=== PATIENT | female | born 1945 | race Caucasian/White ===

== ENCOUNTER 2016-11-18 12:15 | Inpatient (IN) | payer MEDICARE, OTHER ==
[~2016-11-18] VITALS: Ht 152.4 cm; Wt 71.8 kg
[~2016-11-18 12:15] MED LIST: ACET325T9 PO; AMLO10TA2 PO; AMLO10TA4 PO; AMLO5TAB4 PO; ATOR10TA PO; ATOR10TA60 PO; Aspirin PO; BUSP10TA PO; Buspirone Hcl PO; CLON1TAB3 PO; CLOP75TA PO; CLOP75TA27 PO; COLE1TAB PO; COLE1TAB2 PO; DOXY100C2 PO; FENO43CA PO; FENT1PAT15 TD; HYDR-2672 PO; HYDR-971 PO; Hydrocodone/Acetaminophen PO; INSU100I13 SQ; INSU100I17 SQ; INSU100I18 SQ; INSU100I27 SQ; INSU100V31 SQ; INSU100V8 SQ; LAMO150T3 PO; LAMO200T3 PO; LEVE250T30 PO; LEVE500T56 PO; LEVE500V7 PO; LEVE750T41 PO; LINE600T PO; LORA1TAB PO; METF10002 PO; METF500T PO; METF500T4 PO; METH10TA6 PO; METO10SO PO; METO10TA PO; METO10TA81 PO; METO50TA2 PO; Metoprolol Tartrate PO; NITR0.4T SL; OMEP20TA PO; ONDA4TAB10 PO; ONDA4TAB12 PO; OXYC-323 PO; OXYC1TAB9 PO; PANT40TA5 PO; PIOG45TA19 PO; ROPI0.5T PO; SUCR1TAB29 PO; TRAM-29 PO; VALS160T3 PO; VALS320T2 PO; VALS320T9 PO; ZOLP10TA PO; ZOLP5TAB PO
--- NOTE | 2016-11-18 12:47 | EKG ---
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
[2016-11-18 12:59] LABS: BILIRUBIN,URINE NEGATIVE (NEG); GLUCOSE,URINE NEGATIVE (NEG); NITRITE,URINE NEGATIVE (NEG); PROTEIN,URINE NEGATIVE (NEG-TRACE); UROBILINOGEN,URINE 0.2 mg/dL (0.2 mg/dL)
[2016-11-18 13:15] LABS: BACTERIA,URINE 0 /HPF (0-FEW); SQUAMOUS EPITHELIAL CELL,UR OCC /LPF; WBC,URINE 0 /HPF (0-4)
[2016-11-18 13:17] LABS: RBC,URINE 0 /HPF (0-2)
[2016-11-18 13:30] LABS: BASO # 0.1 x10^3/uL (0.0-0.2); BASO % 1 % (0-3); EOS % 1 % (0-3); HEMOGLOBIN 12.7 g/dL (12.0-15.5); LYMPH # 2.6 x10^3/uL (1.0-4.8); LYMPH % 35 % (24-48); MEAN CORPUSCULAR HEMOGLOBIN 32 pg (25-35); MEAN CORPUSCULAR HGB CONC 34 g/dL (31-37); MEAN CORPUSCULAR VOLUME 94 fL (79-100); MONO % 8 % (0-9); NEUT % 55 % (31-73); PLATELET COUNT 395 x10^3/uL (140-400); RED BLOOD COUNT 4.04 x10^6/uL (3.50-5.40); RED CELL DISTRIBUTION WIDTH 14.1 % (11.5-14.5); WHITE BLOOD COUNT 7.4 x10^3/uL (4.0-11.0)
[2016-11-18 13:38] LABS: CALCIUM 9.9 mg/dL (8.5-10.1); GFR 54.7; POTASSIUM 3.9 mmol/L (3.5-5.1)
[2016-11-18 13:44] LABS: ALBUMIN 4.3 g/dL (3.4-5.0); ALBUMIN/GLOBULIN RATIO 1.1 (1.0-1.7); TOTAL BILIRUBIN 0.2 mg/dL (0.2-1.0); TOTAL PROTEIN 8.2 g/dL (6.4-8.2)
--- NOTE | 2016-11-18 13:47 | RAD ---
Portable AP upright view CXR: Clinical indications: Dizziness. Shortness of air. Comparison: June 10, 2016 Findings: No acute lung infiltrate or pleural effusion or pulmonary edema or lung mass or pneumothorax is seen. The heart size, pulmonary vasculature, mediastinum and both clayton are stable given rotation. A sternotomy is evident. A vertebroplasty of the lumbar spine is evident. Impression: No acute radiographic abnormality is seen.
[2016-11-18] MEDS ORDERED: IV NORMAL SALINE 1000ML BAG 1,000 ML IV SCH (14:08)
[2016-11-18] MEDS ORDERED: ACETAMINOPHEN 325 MG TABLET. PO PRN ×2 (14:15→15:30)
[2016-11-18] MEDS ORDERED: ONDANSETRON PF 4 MG/2 ML VIAL. IV PRN (14:15)
--- NOTE | 2016-11-18 14:33 | PHYS DOC ---
Past Medical History Past Medical History: Bipolar, Diabetes-Type II, Heart Disease, Hypertension, IBS, Seizure, Other Additional Past Medical Histor: Gastroparesis Past Surgical History: Appendectomy, Cholecystectomy, Hysterectomy, Other Additional Past Surgical Histo: Cardiac stents x 5, CABG, Fused R)ankle surgery Alcohol Use: None Drug Use: None Adult General Chief Complaint Chief Complaint: DIZZY/LIGHT HEADED HPI HPI 71-year-old female presents to the emergency department today stating that she just feels terrible. Her initial complaint was that she is dizzy and really unable to ambulate secondary to her dizziness. She states that she's recently been seen and evaluated for this and sent home. She also states that she's had some chest discomfort and shortness of breath. She denies any fever chills or sweats. She denies any headache or lateralizing neurologic weakness. She has not had any recent falls at home but she does state that she doesn't feel safe. [] Review of Systems Review of Systems Constitutional: Denies fever or chills [] Eyes: Denies change in visual acuity, redness, or eye pain [] HENT: Denies nasal congestion or sore throat [] Respiratory: Denies cough or shortness of breath [] Cardiovascular: No additional information not addressed in HPI [] GI: Denies abdominal pain, nausea, vomiting, bloody stools or diarrhea [] : Denies dysuria or hematuria [] Musculoskeletal: Denies back pain or joint pain [] Integument: Denies rash or skin lesions [] Neurologic: Dizzy [] Endocrine: Denies polyuria or polydipsia [] Current Medications Current Medications Current Medications Medications (Trade) Dose Ordered Sig/Melanie Start Time Stop Time Status Last Admin Dose Admin Acetaminophen (Tylenol) 650 mg PRN Q4HRS PRN 11/18/16 14:15 11/19/16 14:14 UNV Fentanyl Citrate 50 mcg 50 mcg PRN Q2HR PRN 11/18/16 14:15 11/19/16 14:14 UNV Ondansetron HCl (Zofran) 4 mg PRN Q8HRS PRN 11/18/16 14:15 11/19/16 14:14 UNV Sodium Chloride (Iv Sodium Chloride 0.9% 1000ml Bag) 1,000 ml @ 125 mls/hr Q8H 11/18/16 14:08 11/19/16 14:07 UNV Allergies Allergies Allergies Coded Allergies Type Severity Reaction Last Updated Verified Iodinated Contrast Media - Oral and Allergy Severe Anaphylaxis 05/27/16 Yes Penicillins Allergy Intermediate 05/27/16 Yes atenolol Allergy Intermediate 05/27/16 Yes erythromycin base Allergy Intermediate 05/27/16 Yes iodine Allergy Intermediate 05/27/16 Yes levofloxacin Allergy Intermediate 05/27/16 Yes pregabalin Allergy Intermediate 05/27/16 Yes Physical Exam Physical Exam Constitutional: Well developed, well nourished, no acute distress, non-toxic appearance. [] HENT: Normocephalic, atraumatic, bilateral external ears normal, oropharynx moist, no oral exudates, nose normal. [] Eyes: PERRLA, EOMI, conjunctiva normal, no discharge. [] Neck: Normal range of motion, no tenderness, supple, no stridor. [] Cardiovascular:Heart rate regular rhythm, no murmur [] Lungs & Thorax: Bilateral breath sounds clear to auscultation [] Abdomen: Bowel sounds normal, soft, no tenderness, no masses, no pulsatile masses. [] Skin: Warm, dry, no erythema, no rash. [] Back: No tenderness, no CVA tenderness. [] Extremities: No tenderness, no cyanosis, no clubbing, ROM intact, no edema. [] Neurologic: Alert and oriented X 3, normal motor function, normal sensory function, no focal deficits noted. [] Psychologic: Affect normal, judgement normal, mood normal. [] Current Patient Data Vital Signs Vital Signs Date Time Temp Pulse Resp B/P Pulse Ox O2 Delivery O2 Flow Rate FiO2 11/18/16 13:29 78 15 160/77 99 Room Air 11/18/16 12:21 98.3 98.3 Lab Values Laboratory Tests Test 11/18/16 12:37 11/18/16 13:15 Urine Collection Type Unknown Urine Color Yellow Urine Clarity Clear Urine pH 7.0 Urine Specific Maiden <=1.005 Urine Protein Negativemg/dL (NEG-TRACE) Urine Glucose (UA) Negativemg/dL (NEG) Urine Ketones (Stick) Negativemg/dL (NEG) Urine Blood Negative (NEG) Urine Nitrite Negative (NEG) Urine Bilirubin Negative (NEG) Urine Urobilinogen Dipstick 0.2mg/dL (0.2 mg/dL) Urine Leukocyte Esterase Trace (NEG) Urine RBC 0/HPF (0-2) Urine WBC 0/HPF (0-4) Urine Squamous Epithelial Cells Occ/LPF Urine Transitional Epithelial Cells Mod/LPF Urine Bacteria 0/HPF (0-FEW) White Blood Count 7.4x10^3/uL (4.0-11.0) Red Blood Count 4.04x10^6/uL (3.50-5.40) Hemoglobin 12.7g/dL (12.0-15.5) Hematocrit 38.0% (36.0-47.0) Mean Corpuscular Volume 94fL (79-100) Mean Corpuscular Hemoglobin 32pg (25-35) Mean Corpuscular Hemoglobin Concent 34g/dL (31-37) Red Cell Distribution Width 14.1% (11.5-14.5) Platelet Count 395x10^3/uL (140-400) Neutrophils (%) (Auto) 55% (31-73) Lymphocytes (%) (Auto) 35% (24-48) Monocytes (%) (Auto) 8% (0-9) Eosinophils (%) (Auto) 1% (0-3) Basophils (%) (Auto) 1% (0-3) Neutrophils # (Auto) 4.0x10^3uL (1.8-7.7) Lymphocytes # (Auto) 2.6x10^3/uL (1.0-4.8) Monocytes # (Auto) 0.6x10^3/uL (0.0-1.1) Eosinophils # (Auto) 0.1x10^3/uL (0.0-0.7) Basophils # (Auto) 0.1x10^3/uL (0.0-0.2) Sodium Level 142mmol/L (136-145) Potassium Level 3.9mmol/L (3.5-5.1) Chloride Level 103mmol/L (98-107) Carbon Dioxide Level 27mmol/L (21-32) Anion Gap 12 (6-14) Blood Urea Nitrogen 23mg/dL (7-20) H Creatinine 1.0mg/dL (0.6-1.0) Estimated GFR (Cockcroft-Gault) 54.7 BUN/Creatinine Ratio 23 (6-20) H Glucose Level 134mg/dL (70-99) H Calcium Level 9.9mg/dL (8.5-10.1) Total Bilirubin 0.2mg/dL (0.2-1.0) Aspartate Amino Transferase (AST) 13U/L (15-37) L Alanine Aminotransferase (ALT) 20U/L (14-59) Alkaline Phosphatase 98U/L (46-116) Troponin I Quantitative < 0.017ng/mL (0.000-0.055) SE-Nrh-D-Type Natriuretic Peptide 217pg/mL (0-124) H Total Protein 8.2g/dL (6.4-8.2) Albumin 4.3g/dL (3.4-5.0) Albumin/Globulin Ratio 1.1 (1.0-1.7) Laboratory Tests 11/18/16 13:15 Laboratory Tests 11/18/16 13:15 EKG EKG EKG: Normal sinus rhythm rate of [address]-T changes [] Radiology/Procedures Radiology/Procedures [] Impressions: Chest x-ray: No acute cardiopulmonary issues Course & Med Decision Making Course & Med Decision Making Pertinent Labs and Imaging studies reviewed. (See chart for details) [ED course: Evaluation reveals a 71-year-old frail female who complains of dizziness and has concerns that she's not able to take care of herself at home. She was recently seen in the hospital for the same. I discussed the case with Dr. Prime West who states she does need further evaluation likely to include a stress test.] Dragon Disclaimer Dragon Disclaimer This electronic medical record was generated, in whole or in part, using a voice recognition dictation system. Departure Departure Impression: Primary Impression: Dizziness Disposition: 09 ADMITTED INPATIENT Admitting Physician: Natanael Masters Condition: STABLE Referrals: NATANAEL MASTERS MD (PCP) COURTNEY SKY DO Nov 18, 2016 14:33
[2016-11-18] MEDS ORDERED: MAG HYDROX/ALUMINUM HYD/SIMETH 30 ML ORAL.SUSP PO PRN (15:30)
[2016-11-18] MEDS ORDERED: NITROGLYCERIN SUBLINGUAL 0.4 MG BOTTLE OF 25. SL PRN (15:30)
--- NOTE | 2016-11-18 15:43 | PDOC ---
Provider Note Provider Note history and physical dictated #[id number] DENICE IZAGUIRRE MD Nov 18, 2016 15:43
[2016-11-18] MEDS: OXYCODONE IR 5 MG TABLET. PO PRN ×2 (16:04→21:23)
--- NOTE | 2016-11-18 16:14 | HP ---
ADMIT DATE: 11/18/2016 HISTORY OF PRESENT ILLNESS: The patient is a 71-year-old white female with history of coronary artery disease, diabetes mellitus type 2 with diabetic gastroparesis and microalbuminuria who has hypertension and hyperlipidemia and was admitted to [facility] through Emergency Room with a 4-day history of dizziness. She notes dizziness when she stands up and tries to walk, making ambulation quite difficult. She also has had some nausea and some shortness of breath and chest discomfort and she was seen in the Emergency Room. Her EKG did not show any acute change. Chest x-ray was unremarkable. Admitting labs were okay. She was to have an outpatient stress test, but it was canceled because they could not get IV access. Her jawbone puller is Dr. Quigley. She is therefore admitted for further evaluation of her aforementioned symptoms. ALLERGIES AND INTOLERANCES: INCLUDE HYDROCODONE, ATENOLOL, ERYTHROMYCIN, ORAL IODINE AND IV IODINE, LEVAQUIN CAUSED A RASH, PENICILLIN CAUSED A RASH, LYRICA CAUSED A RASH AND TRAMADOL CAUSED FACIAL HIVES. MEDICATIONS: Include Actos 45 mg every day, amlodipine 10 mg every day, aspirin 81 mg every day, atorvastatin 10 mg every day, Colestid 1 g b.i.d., fentanyl 25 mcg patch every 72 hours, hydrochlorothiazide 25 mg every day, Imdur 30 mg every day, Keppra 750 mg b.i.d., Lantus 4 units at bedtime, lorazepam 1 mg t.i.d. p.r.n. for anxiety, metformin 500 mg b.i.d., metoprolol tartrate 50 mg b.i.d., multiple vitamin once a day, nitroglycerin 0.4 mg sublingual p.r.n. chest pain, NovoLog insulin 4 units before meals t.i.d., oxycodone 5 mg b.i.d. p.r.n., Plavix 75 mg every day, Protonix 40 mg b.i.d., spironolactone 25 mg every day, valsartan 320 mg every day, vitamin B12 1000 mcg p.o. daily, Zofran 4 mg before meals t.i.d., Ambien 5 mg at bedtime p.r.n., and metoclopramide 10 mg b.i.d. PAST MEDICAL HISTORY: Significant for diabetes mellitus type 2 with gastroparesis and microalbuminuria. She has coronary artery disease, hypertension, hyperlipidemia, epilepsy, reflux esophagitis, macular degeneration, lumbar spondylosis, kidney stones in the past, diverticulosis, and bipolar disorder. PAST SURGICAL HISTORY: She had a left total knee arthroplasty, right ankle arthroplasty, open reduction internal fixation of her right ankle fracture, three-vessel coronary bypass graft surgery in 2002, cholecystectomy, and a Schatzki stricture dilated. SOCIAL HISTORY: She does not drink alcohol nor does she smoke cigarettes. She is , retired. FAMILY HISTORY: Noncontributory. REVIEW OF SYSTEMS: GENERAL: No fever, chills or sweats in the last 3 days. CARDIOVASCULAR: She has had some chest pain. PULMONARY: No cough ____. She does have some shortness of breath. GASTROINTESTINAL: Some nausea. ENDOCRINE: She has diabetes mellitus. The rest of systems are reviewed and negative except as stated in history of present illness. PHYSICAL EXAMINATION: VITAL SIGNS: Temperature is 98.3 degrees, apical pulse 78, respiratory rate is 18, blood pressure 160/77, and oxygen saturation 99% on room air. HEENT: Eyes: Gaze is conjugate. Extraocular muscles are intact. There is no nystagmus. Mouth: Tongue is midline. NECK: There is no cervical lymphadenopathy or carotid bruits. HEART: Reveals an S1, S2. There is no S3 or murmur. LUNGS: Clear. ABDOMEN: Soft with no hepatosplenomegaly or masses. EXTREMITIES: Lower extremities without edema. SKIN: No rashes. NEUROLOGIC: She is coherent. She has no focal weakness the arms or legs. [id number] testing is normal bilaterally. LABORATORY DATA: The white count was 7.4, hemoglobin 12.7 with a platelet count of 395,000, polys 55 and lymphocytes 35. Sodium 142, potassium 3.9, chloride 103, total CO2 27, BUN 23, creatinine 1.0, blood sugar 134. Liver function tests were normal. Troponin level was negative x 1. ProBNP was 217, albumin was 4.3 and urinalysis showed no white cells. Chest x-ray showed no acute abnormality. EKG showed normal sinus rhythm with no acute abnormality. ASSESSMENT: 1. Dizziness. Certainly need to rule out orthostatic hypotension. 2. Chest pain. She has had this on occasion and stress test could not be done as an outpatient. She had IV access problems. 3. Coronary artery disease. 4. 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 5. Hypertension. 6. Hyperlipidemia. 7. Reflux esophagitis. PLAN: To consult Dr. Quigley. We will check orthostatic blood pressures. We will have a PICC line placed and so that she can have a myocardial perfusion imaging stress test/NICHELLE scan. We check hemoglobin A1c and lipid profile tomorrow. We will order some physical therapy for it also. Her home medications will be ordered and will check her blood sugars before meals t.i.d. and bedtime, on an ADA diet. DENICE IZAGUIRRE MD DR: MIKAL/mandy JOB#: [id number] / [id number]
[2016-11-18] MEDS: METFORMIN 500 MG TABLET. PO SCH (17:00)
[2016-11-18 17:42] VITALS: BP 188/78
[2016-11-18] MEDS: PANTOPRAZOLE 40 MG TABLET.DR. PO SCH (17:53)
[2016-11-18] MEDS: ONDANSETRON ODT 4 MG TAB.RAPDIS. PO SCH (17:53)
[2016-11-18] MEDS: FENTANYL 25MCG/HR PATCH. TD SCH (17:54)
[2016-11-18 19:00] VITALS: BP 137/71
[2016-11-18] MEDS: LORAZEPAM 1 MG TABLET. PO PRN (19:50)
[2016-11-18] MEDS: METOCLOPRAMIDE 10 MG TABLET. PO SCH (19:51)
[2016-11-18 20:00] VITALS: BP 142/68
[2016-11-18 20:01] VITALS: BP 153/63
[2016-11-18 20:02] VITALS: BP 169/83
[2016-11-18] MEDS ORDERED: LIDOCAINE 1% 1 ML SYRINGE. ONE (20:20)
[2016-11-18] MEDS ORDERED: ATORVASTATIN CALCIUM 10 MG TABLET. PO SCH (21:00)
[2016-11-18] MEDS: LEVETIRACETAM 250 MG TABLET. PO SCH (21:21)
[2016-11-18] MEDS: ZOLPIDEM 5 MG TABLET. PO PRN (21:21)
[2016-11-18] MEDS: METOPROLOL TART IMMED RELEASE 50 MG TABLET. PO SCH (21:22)
[2016-11-18] MEDS: COLESTIPOL HCL 1 GM TABLET PO SCH (22:00)
[2016-11-18 23:00] VITALS: BP 138/66
[2016-11-19] MEDS: INSULIN DETEMIR 300 UNITS/3 ML INSULN.PEN. SQ SCH ×2 (00:43→21:42)
[2016-11-19] MEDS: FENTANYL PF 100 MCG/2 ML VIAL. IV PRN ×4 (01:05→11:00)
[2016-11-19 03:00] VITALS: BP 138/66
[2016-11-19 06:54] LABS: CHOLESTEROL/HDL RATIO 5.9; MAGNESIUM 1.8 mg/dL (1.8-2.4)
[2016-11-19 07:00] VITALS: BP 142/72
--- NOTE | 2016-11-19 07:10 | RAD ---
Portable chest, 11/19/2016: History: Check PICC placement Comparison is made to a study from 11/18/2016. A right PICC has been inserted extending into the inferior aspect of the superior vena cava. There has been a previous median sternotomy. Spinal stimulator lead extends into the thoracic spinal canal. The heart size and pulmonary vascularity are normal. There is calcific plaquing of the aorta. No pulmonary infiltrates are seen. There is no evidence of pleural fluid. IMPRESSION: 1. Interval insertion of a right PICC in satisfactory position. 2. No acute cardiopulmonary abnormality is detected.
[2016-11-19] MEDS: ONDANSETRON ODT 4 MG TAB.RAPDIS. PO SCH ×3 (07:14→16:30)
[2016-11-19] MEDS: INSULIN ASPART 300 UNITS/3 ML INSULN.PEN SQ SCH ×3 (07:30→17:26)
[2016-11-19] MEDS: METOCLOPRAMIDE 10 MG TABLET. PO SCH ×2 (07:44→16:30)
[2016-11-19] MEDS: PANTOPRAZOLE 40 MG TABLET.DR. PO SCH ×2 (07:44→16:30)
[2016-11-19] MEDS ORDERED: ASPIRIN 325 MG TABLET PO SCH (08:00)
[2016-11-19] MEDS: METFORMIN 500 MG TABLET. PO SCH ×2 (08:00→16:59)
[2016-11-19] MEDS ORDERED: REGADENOSON 0.4 MG/5 ML DISP.SYRIN. IV ONE (08:15)
--- NOTE | 2016-11-19 08:32 | PDOC ---
PROGRESS NOTES Subjective Subjective has lightheadedness. did not have orthostatic hypotension. picc placed for MPI today. lab reviewed. blood sugars okay. trigs 400 and ldl 148.. will increase atorvastatin. Objective Objective Vital Signs Date Time Temp Pulse Resp B/P Pulse Ox O2 Delivery O2 Flow Rate FiO2 11/19/16 07:45 20 95 Room Air 11/19/16 07:00 98.1 71 142/72 98.1 Intake and Output 11/19/16 06:59 Intake Total 0 ml Output Total 100 ml Balance -100 ml Intake Oral 0 ml Output Urine Total 100 ml # Voids 3 Physical Exam Abdomen: Soft Heart: Regular rate, Normal S1, Normal S2 Extremities: No edema General: Alert HEENT: Atraumatic Lungs: Clear to auscultation Neuro: Normal speech Psych/Mental Status: Mental status NL Skin: No rashes Assessment Assessment Problems Medical Problems:1. Dizziness. no orthostatic hypotension 2. Chest pain 3. Coronary artery disease. 4. 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 5. Hypertension. 6. Hyperlipidemia. 7. Reflux esophagitis. (1) Dizziness Status: Acute Plan Plan of Care MPI lexiscan stress test today increase atorvastatin continue telemetry Comment Review of Relevant I have reviewed the following items maldonado (where applicable) has been applied. Labs Laboratory Tests Test 11/18/16 12:37 11/18/16 13:15 11/18/16 17:43 11/18/16 19:50 Urine Collection Type Unknown Urine Color Yellow Urine Clarity Clear Urine pH 7.0 Urine Specific [place] <=1.005 Urine Protein Negativemg/dL (NEG-TRACE) Urine Glucose (UA) Negativemg/dL (NEG) Urine Ketones (Stick) Negativemg/dL (NEG) Urine Blood Negative (NEG) Urine Nitrite Negative (NEG) Urine Bilirubin Negative (NEG) Urine Urobilinogen Dipstick 0.2mg/dL (0.2 mg/dL) Urine Leukocyte Esterase Trace (NEG) Urine RBC 0/HPF (0-2) Urine WBC 0/HPF (0-4) Urine Squamous Epithelial Cells Occ/LPF Urine Transitional Epithelial Cells Mod/LPF Urine Bacteria 0/HPF (0-FEW) White Blood Count 7.4x10^3/uL (4.0-11.0) Red Blood Count 4.04x10^6/uL (3.50-5.40) Hemoglobin 12.7g/dL (12.0-15.5) Hematocrit 38.0% (36.0-47.0) Mean Corpuscular Volume 94fL (79-100) Mean Corpuscular Hemoglobin 32pg (25-35) Mean Corpuscular Hemoglobin Concent 34g/dL (31-37) Red Cell Distribution Width 14.1% (11.5-14.5) Platelet Count 395x10^3/uL (140-400) Neutrophils (%) (Auto) 55% (31-73) Lymphocytes (%) (Auto) 35% (24-48) Monocytes (%) (Auto) 8% (0-9) Eosinophils (%) (Auto) 1% (0-3) Basophils (%) (Auto) 1% (0-3) Neutrophils # (Auto) 4.0x10^3uL (1.8-7.7) Lymphocytes # (Auto) 2.6x10^3/uL (1.0-4.8) Monocytes # (Auto) 0.6x10^3/uL (0.0-1.1) Eosinophils # (Auto) 0.1x10^3/uL (0.0-0.7) Basophils # (Auto) 0.1x10^3/uL (0.0-0.2) Sodium Level 142mmol/L (136-145) Potassium Level 3.9mmol/L (3.5-5.1) Chloride Level 103mmol/L (98-107) Carbon Dioxide Level 27mmol/L (21-32) Anion Gap 12 (6-14) Blood Urea Nitrogen 23mg/dL (7-20) Creatinine 1.0mg/dL (0.6-1.0) Estimated GFR (Cockcroft-Gault) 54.7 BUN/Creatinine Ratio 23 (6-20) Glucose Level 134mg/dL (70-99) Calcium Level 9.9mg/dL (8.5-10.1) Total Bilirubin 0.2mg/dL (0.2-1.0) Aspartate Amino Transf (AST/SGOT) 13U/L (15-37) Alanine Aminotransferase (ALT/SGPT) 20U/L (14-59) Alkaline Phosphatase 98U/L (46-116) Troponin I Quantitative < 0.017ng/mL (0.000-0.055) < 0.017ng/mL (0.000-0.055) FN-Auo-F-Type Natriuretic Peptide 217pg/mL (0-124) Total Protein 8.2g/dL (6.4-8.2) Albumin 4.3g/dL (3.4-5.0) Albumin/Globulin Ratio 1.1 (1.0-1.7) Glucose (Fingerstick) 155mg/dL (70-99) Test 11/18/16 20:51 11/19/16 06:20 11/19/16 07:36 Glucose (Fingerstick) 200mg/dL (70-99) 116mg/dL (70-99) Magnesium Level 1.8mg/dL (1.8-2.4) Troponin I Quantitative 0.030ng/mL (0.000-0.055) Triglycerides Level 400mg/dL (0-150) Cholesterol Level 275mg/dL (0-200) LDL Cholesterol, Calculated 148mg/dL (0-100) VLDL Cholesterol, Calculated 80mg/dL (0-40) HDL Cholesterol 47mg/dL (40-60) Cholesterol/HDL Ratio 5.9 Laboratory Tests Test 11/18/16 12:37 11/18/16 13:15 11/18/16 17:43 11/18/16 19:50 Urine Collection Type Unknown Urine Color Yellow Urine Clarity Clear Urine pH 7.0 Urine Specific [place] <=1.005 Urine Protein Negativemg/dL (NEG-TRACE) Urine Glucose (UA) Negativemg/dL (NEG) Urine Ketones (Stick) Negativemg/dL (NEG) Urine Blood Negative (NEG) Urine Nitrite Negative (NEG) Urine Bilirubin Negative (NEG) Urine Urobilinogen Dipstick 0.2mg/dL (0.2 mg/dL) Urine Leukocyte Esterase Trace (NEG) Urine RBC 0/HPF (0-2) Urine WBC 0/HPF (0-4) Urine Squamous Epithelial Cells Occ/LPF Urine Transitional Epithelial Cells Mod/LPF Urine Bacteria 0/HPF (0-FEW) White Blood Count 7.4x10^3/uL (4.0-11.0) Red Blood Count 4.04x10^6/uL (3.50-5.40) Hemoglobin 12.7g/dL (12.0-15.5) Hematocrit 38.0% (36.0-47.0) Mean Corpuscular Volume 94fL (79-100) Mean Corpuscular Hemoglobin 32pg (25-35) Mean Corpuscular Hemoglobin Concent 34g/dL (31-37) Red Cell Distribution Width 14.1% (11.5-14.5) Platelet Count 395x10^3/uL (140-400) Neutrophils (%) (Auto) 55% (31-73) Lymphocytes (%) (Auto) 35% (24-48) Monocytes (%) (Auto) 8% (0-9) Eosinophils (%) (Auto) 1% (0-3) Basophils (%) (Auto) 1% (0-3) Neutrophils # (Auto) 4.0x10^3uL (1.8-7.7) Lymphocytes # (Auto) 2.6x10^3/uL (1.0-4.8) Monocytes # (Auto) 0.6x10^3/uL (0.0-1.1) Eosinophils # (Auto) 0.1x10^3/uL (0.0-0.7) Basophils # (Auto) 0.1x10^3/uL (0.0-0.2) Sodium Level 142mmol/L (136-145) Potassium Level 3.9mmol/L (3.5-5.1) Chloride Level 103mmol/L (98-107) Carbon Dioxide Level 27mmol/L (21-32) Anion Gap 12 (6-14) Blood Urea Nitrogen 23mg/dL (7-20) Creatinine 1.0mg/dL (0.6-1.0) Estimated GFR (Cockcroft-Gault) 54.7 BUN/Creatinine Ratio 23 (6-20) Glucose Level 134mg/dL (70-99) Calcium Level 9.9mg/dL (8.5-10.1) Total Bilirubin 0.2mg/dL (0.2-1.0) Aspartate Amino Transf (AST/SGOT) 13U/L (15-37) Alanine Aminotransferase (ALT/SGPT) 20U/L (14-59) Alkaline Phosphatase 98U/L (46-116) Troponin I Quantitative < 0.017ng/mL (0.000-0.055) < 0.017ng/mL (0.000-0.055) PF-Avy-W-Type Natriuretic Peptide 217pg/mL (0-124) Total Protein 8.2g/dL (6.4-8.2) Albumin 4.3g/dL (3.4-5.0) Albumin/Globulin Ratio 1.1 (1.0-1.7) Glucose (Fingerstick) 155mg/dL (70-99) Test 11/18/16 20:51 11/19/16 06:20 11/19/16 07:36 Glucose (Fingerstick) 200mg/dL (70-99) 116mg/dL (70-99) Magnesium Level 1.8mg/dL (1.8-2.4) Troponin I Quantitative 0.030ng/mL (0.000-0.055) Triglycerides Level 400mg/dL (0-150) Cholesterol Level 275mg/dL (0-200) LDL Cholesterol, Calculated 148mg/dL (0-100) VLDL Cholesterol, Calculated 80mg/dL (0-40) HDL Cholesterol 47mg/dL (40-60) Cholesterol/HDL Ratio 5.9 Medications Current Medications Ondansetron HCl (Zofran) 4 mg PRN Q8HRS PRN IV NAUSEA/VOMITING Last administered on 11/19/16 01:05; Start 11/18/16 at 14:15; Stop 11/19/16 at 14:14 Fentanyl Citrate 50 mcg 50 mcg PRN Q2HR PRN IV PAIN Last administered on 07:45; Start 11/18/16 at 14:15; Stop 11/19/16 at 14:14 Sodium Chloride (Iv Sodium Chloride 0.9% 1000ml Bag) 1,000 ml @ 125 mls/hr Q8H IV ; Start 11/18/16 at 14:08; Stop 11/18/16 at 19:29; Status DC Acetaminophen (Tylenol) 650 mg PRN Q4HRS PRN PO FEVER; Start 11/18/16 at 14:15; Stop 11/18/16 at 15:42; Status DC Pioglitazone HCl (Actos) 45 mg DAILY PO ; Start 11/19/16 at 09:00 Acetaminophen (Tylenol) 650 mg PRN Q4HRS PRN PO MILD PAIN / TEMP; Start at 15:30 Al Hydroxide/Mg Hydroxide (Mylanta Plus Xs) 30 ml PRN Q2HR PRN PO HEARTBURN / GAS; Start 11/18/16 at 15:30 Aspirin (Dev Aspirin) 81 mg DAILYWBKFT PO ; Start 11/19/16 at 08:00 Atorvastatin Calcium (Lipitor) 10 mg QHS PO Last administered on 11/18/16 21:20 ; Start 11/18/16 at 21:00 Colestipol HCl (Colestid) 1 gm BID@ PO ; Start 11/18/16 at 22:00 Fentanyl (Duragesic 25mcg/ Hr Patch) 1 patch Q3DAYS TD Last administered on 11/18 17:54; Start 11/18/16 at 18:00 Hydrochlorothiazide (Hydrodiuril) 25 mg DAILY PO ; Start 11/19/16 at 09:00 Isosorbide Mononitrate (Imdur) 30 mg DAILY PO ; Start 11/19/16 at 09:00 Levetiracetam (Keppra) 750 mg BID PO Last administered on 11/18/16 21:21; Start 11/18/16 at 21:00 Insulin Detemir (Levemir) 4 units QHS SQ Last administered on 11/19/16 00:43; Start 11/18/16 at 21:00 Insulin Aspart (Novolog) 4 units TIDAC SQ ; Start 11/19/16 at 07:30 Lorazepam (Ativan) 1 mg PRN TID PRN PO ANXIETY / AGITATION Last administered on 11/18/16 19:50; Start 11/18/16 at 15:30 Metformin HCl (Glucophage) 500 mg BIDWMEALS PO ; Start 11/18/16 at 17:00 Metoprolol Tartrate (Lopressor) 50 mg BID PO Last administered on 11/18/16 21: 22; Start 11/18/16 at 21:00 Multivitamins (Thera M Plus) 1 tab DAILY PO ; Start 11/19/16 at 09:00 Nitroglycerin (Nitrostat) 0.4 mg PRN Q5MIN PRN SL CHEST PAIN; Start 11/18/16 at 15:30 Oxycodone HCl (Roxicodone) 5 mg PRN BID PRN PO MODERATE PAIN Last administered on 11/18/16 21:23; Start 11/18/16 at 15:30 Clopidogrel Bisulfate (Plavix) 75 mg DAILYWBKFT PO ; Start 11/19/16 at 08:00 Pantoprazole Sodium (Protonix) 40 mg BIDAC PO Last administered on 11/19/16 07 :44; Start 11/18/16 at 18:00 Spironolactone (Aldactone) 25 mg DAILY PO ; Start 11/19/16 at 09:00 Losartan Potassium (Cozaar) 100 mg DAILY PO ; Start 11/19/16 at 09:00 Cyanocobalamin (Vitamin B-12) 1,000 mcg DAILY PO ; Start 11/19/16 at 09:00 Ondansetron HCl (Zofran Odt) 4 mg TIDAC PO Last administered on 11/19/16 07:14 ; Start 11/18/16 at 16:30 Zolpidem Tartrate (Ambien) 5 mg PRN QHS PRN PO INSOMNIA Last administered on 21:21; Start 11/18/16 at 15:30 Metoclopramide HCl (Reglan) 10 mg BIDBFRMEAL PO Last administered on 11/19/16 07:44; Start 11/18/16 at 16:30 Lidocaine HCl 1 ml STK-MED ONCE .ROUTE ; Start 11/18/16 at 20:20; Stop 11/18/16 at 20:21; Status DC Regadenoson (Lexiscan) 0.4 mg 1X ONCE IV ; Start 11/19/16 at 08:15; Stop at 08:16; Status DC Active Scripts Active Percocet 5-325 Mg Tablet (Oxycodone/Acetaminophen) 1 Each Tablet 1 Tab PO PRN Q6HRS PRN Pantoprazole Sodium 40 Mg Tablet.dr 40 Mg PO BIDAC Metoclopramide Hcl 10 Mg Tablet 10 Mg PO QIDACHS Levemir Flextouch (Insulin Detemir) 100 Unit/1 Ml Insuln.pen 4 Units SQ QHS Oxycodone-Acetaminophen 10-325 (Oxycodone Hcl/Acetaminophen) 1 Each Tablet 1 Tab PO PRN QID PRN Ondansetron Odt (Ondansetron) 4 Mg Tab.rapdis 4 Mg PO TIDAC Novolog Flexpen (Insulin Aspart) 100 Unit/1 Ml Insuln.pen 4 Units SQ TIDAC FENTANYL 25mcg/hr (Fentanyl) 1 Each Patch.td72 1 Patch TD Q3DAYS Amlodipine Besylate 10 Mg Tablet 10 Mg PO DAILY Reported Valsartan 320 Mg Tablet 320 Mg PO DAILY Colestipol Hcl 1 Gm Tablet 1 Gm PO BID Metoprolol Tartrate 50 Mg Tablet 50 Mg PO BID Buspirone Hcl 10 Mg Tablet 10 Mg PO TID Ambien (Zolpidem Tartrate) 5 Mg Tablet 5 Mg PO HS Lorazepam 1 Mg Tablet 1 Mg PO TID Clopidogrel (Clopidogrel Bisulfate) 75 Mg Tablet 75 Mg PO DAILY Atorvastatin Calcium 10 Mg Tablet 10 Mg PO HS Lamictal (Lamotrigine) 150 Mg Tablet 200 Mg PO DAILY Keppra (Levetiracetam) 750 Mg Tablet 750 Mg PO BID Metformin Hcl 1,000 Mg Tablet 1,000 Mg PO BID Actos (Pioglitazone Hcl) 45 Mg Tablet 15 Mg PO DAILY Vitals/I & O Vital Sign - Last 24 Hours 11/18/16 11/18/16 11/18/16 11/18/16 12:21 12:50 13:29 13:55 Temp 98.3 98.3 Pulse 78 78 78 78 Resp 20 15 15 25 B/P 165/76 162/73 160/77 152/70 Pulse Ox 97 98 99 97 O2 Delivery Room Air Room Air Room Air Room Air 11/18/16 11/18/16 11/18/16 11/18/16 14:25 14:55 15:55 16:04 Pulse 76 74 74 Resp 23 17 21 24 B/P 154/65 165/70 145/65 Pulse Ox 99 99 98 O2 Delivery Room Air Room Air Room Air 11/18/16 11/18/16 11/18/16 11/18/16 17:42 17:54 19:00 20:00 Temp 98.2 98.1 98.2 98.1 Pulse 82 82 73 Resp 22 20 20 B/P 188/78 137/71 142/68 Pulse Ox 99 98 98 O2 Delivery Room Air Room Air Room Air 11/18/16 11/18/16 11/18/16 11/18/16 20:01 20:02 21:22 21:23 Pulse 75 87 87 Resp 20 B/P 153/63 169/83 169/83 Pulse Ox 98 O2 Delivery Room Air 11/18/16 11/19/16 11/19/16 11/19/16 23:00 01:05 03:00 03:51 Temp 97.7 96.6 97.7 96.6 Pulse 65 66 Resp 20 20 20 B/P 138/66 138/66 Pulse Ox 95 95 99 95 O2 Delivery Room Air Room Air Room Air 11/19/16 11/19/16 07:00 07:45 Temp 98.1 98.1 Pulse 71 Resp 18 20 B/P 142/72 Pulse Ox 94 95 O2 Delivery Room Air Room Air Intake and Output 11/18/16 11/18/16 11/19/16 14:59 22:59 06:59 Intake Total 0 ml Output Total 100 ml Balance -100 ml DENICE IZAGUIRRE MD Nov 19, 2016 08:32
[2016-11-19] MEDS ORDERED: CYANOCOBALAMIN (VITAMIN B-12) 1,000 MCG TABLET. PO SCH (09:00)
[2016-11-19] MEDS: COLESTIPOL HCL 1 GM TABLET PO SCH ×2 (10:00→20:06)
[2016-11-19 11:00] VITALS: BP 176/76
[2016-11-19] MEDS: PIOGLITAZONE 15 MG TABLET. PO SCH (11:03)
[2016-11-19] MEDS: HYDROCHLOROTHIAZIDE 25 MG TABLET PO SCH (11:04)
[2016-11-19] MEDS: CLOPIDOGREL BISULFATE 75 MG TABLET PO SCH (11:04)
[2016-11-19] MEDS: MULTIVITAMIN with MINERAL TABLET. PO SCH (11:05)
[2016-11-19] MEDS: LOSARTAN POTASSIUM 50 MG TABLET. PO SCH (11:05)
[2016-11-19] MEDS: ISOSORBIDE MONONITRATE ER 30 MG TAB.ER.24H PO SCH (11:05)
[2016-11-19] MEDS: LEVETIRACETAM 250 MG TABLET. PO SCH ×2 (11:06→21:30)
[2016-11-19] MEDS: METOPROLOL TART IMMED RELEASE 50 MG TABLET. PO SCH ×2 (11:06→21:31)
[2016-11-19] MEDS: SPIRONOLACTONE 25 MG TABLET PO SCH (11:06)
[2016-11-19] MEDS: LORAZEPAM 1 MG TABLET. PO PRN ×3 (11:11→21:33)
[2016-11-19] MEDS: ASPIRIN CHEWABLE 81 MG TABLET. PO SCH (11:13)
[2016-11-19] MEDS: OXYCODONE IR 5 MG TABLET. PO PRN ×3 (11:53→21:31)
--- NOTE | 2016-11-19 13:51 | ACF ---
Admission Forms Criteria DIZZINESS Clinical Indications for Admission to Inpatient Care (Place 'X' for any and all applicable criteria): Admission is indicated for ANY ONE of the following(1)(2)(3)(4): [X]I. Inpatient admission required rather than observation care (Also use Dizziness: Observation Care as appropriate) because of ANY ONE of the following: [ ]a) Hemodynamic instability that is severe or persistent [X]b) Signs or symptoms that are severe or persistent (eg, vomit, orthostasis, inability to ambulate) [ ]c) Cardiac arrhythmias of immediate concern [ ]d) Severe (new) neurologic findings requiring inpatient care as indicated by ANY ONE of the following(6)(7): [ ]1) Cerebral bleeding, ischemia, or vasospasm(8)(9) [ ]2) Increased intracranial pressure or hydrocephalus(10)(11)(12) [ ]3) Papilledema [ ]4) Cerebral edema [ ]5) Mass effect on CT scan [ ]e) Continuous IV infusion of anticoagulation, platelet inhibitor, vasoactive, or antiarrhythmic medication [ ]f) Cerebral bleeding, hydrocephalus, or vasospasm monitoring(14) [ ]g) Increased intracranial pressure or cerebral edema monitoring [ ]h) Vomiting that is severe or persistent [ ]i) Other condition, treatment or monitoring requiring inpatient admission [ ]II. A suspected etiology that requires admission for treatment [ ]III. Acute bacterial labyrinthitis [ ]IV. Cerebellar, brainstem, or cerebral ischemia or hemorrhage (5) Extended stay beyond goal length of stay may be needed for evaluating and treating a specific cause of dizziness, including(32) [ ]a) Head injury (Also use Traumatic Brain Injury, Nonsurgical Treatment guideline) [ ]b) New-onset vertebrobasilar vascular insufficiency [ ]c) Acute Meniere disease with intractable symptoms [ ]d) Cardiac arrhythmias or conduction defects [ ]e) Acute neurologic event causing dizziness [ ]f) Myocardial ischemia [ ]g) Acute bacterial labyrinthitis. [ ]h) Severe acute vestibular neuronitis The original [employer] content created by [employer] has been revised. The portions of the content which have been revised are identified through the use of italic text or in bold, and [facility] [employer] has neither reviewed nor approved the modified material. All other unmodified content is copyright [facility]. Please see references footnoted in the original [facility] edition 2016 Admission Criteria Met?: Yes MERRITT MONTANEZ Nov 19, 2016 13:51
[2016-11-19 15:00] VITALS: BP 117/60
--- NOTE | 2016-11-19 18:16 | PDOC2 ---
NEUROLOGY CONSULT Date of Admission Date of Admission DATE: 11/19/16 TIME: 18:05 Reason for Consult Reason for Consult: IMPRESSION: Chronic dizziness x 4 months. CAD, s/p CABG DM HTN HLD GERD RECOMMENDATIONS/PLAN: Continue Plavix 75 mg daily. Continue Lipitor 40 mg HS. Carotid A US + Doppler. HCT Ortho HR and BP. No MRI due to spinal stimulator. OT/PT HISTORY OF THE PRESENT ILLNESS: 71-y-old female patent with above medical diseases has been having dizziness for about 4 months. She stated her symptoms of dizziness does did not go away and she felt dizzy all the time. Lying position seemed did not decrease her symptoms. She has unsteadiness as well. PAST MEDICAL HISTORY: Please see above. PAST SURGERY HISTORY: S/P CABG ALLERGY: HYDROCODONE ATENOLOL ERYTHROMYCIN IODINE LEVAQUIN CAUSED A RASH PENICILLIN CAUSED A RASH LYRICA CAUSED A RASH TRAMADOL CAUSED FACIAL HIVES MEDICATIONS: Refer to [facility] FAMILY HISTORY: Non contributory. SOCIAL HISTORY: Denies current smoking, drinking, and illicit drug use. REVIEW OF SYSTEMS: Constitutional: No cachexia. Head: No recent traumatic brain or head injury. Skin: No edema. Ear: No infection, tinnitus. Eyes: No vision loss or color blindness. Nose: No bleeding or purulent discharges. Hearing: Hearing decrease. Neck: No injury. Cardiac: NCAD, s/p CABG, HTN, HLD. Pulmonary: No COPD. GI: No GI ulcer, GI bleeding. Urinary/genital: UTI. Endocrinologic: Diabetes Mellitus Skeletomuscular: No muscular atrophy, deformity. Neurological: see HP. Psychiatric: Denies drug use/abuse. Otherwise, not [id number] review of systems. PHYSICAL EXAMINATION: General appearance is in no acute distress. HEENT: Normocephalic and nontraumatic. Eyes, nose, ears, and throat are unremarkable. Neck is supple. No lymphadenopathy. Bruits over the left carotid artery? No crepitus. Cardiovascular: S1, S2, regular rate and rhythm. Pulmonary: Clear to auscultation bilaterally. Abdomen: Bowel sounds are positive. Abdomen is soft, nontender, and nondistended. Extremities: No rash, lesions, or edema. No restriction of range of motion NEUROLOGICAL EXAMINATION: Alert Oriented to time, place and person. PERRL. EOMI. CN: no focal findings. Muscle tone: within normal. Muscle strength: 5- DTR: 2 Plantar reflex: Flexor response bilaterally Gait: not examined in bed. Sensory exam: no abnormal findings. No acute cerebellar signs elicited. F-T-N test accurate. Current Medications Current Medications Current Medications Ondansetron HCl (Zofran) 4 mg PRN Q8HRS PRN IV NAUSEA/VOMITING Last administered on 11/19/16 01:05; Start 11/18/16 at 14:15; Stop 11/19/16 at 14:14 ; Status DC Fentanyl Citrate 50 mcg 50 mcg PRN Q2HR PRN IV PAIN Last administered on 11:00; Start 11/18/16 at 14:15; Stop 11/19/16 at 14:14; Status DC Sodium Chloride (Iv Sodium Chloride 0.9% 1000ml Bag) 1,000 ml @ 125 mls/hr Q8H IV ; Start 11/18/16 at 14:08; Stop 11/18/16 at 19:29; Status DC Acetaminophen (Tylenol) 650 mg PRN Q4HRS PRN PO FEVER; Start 11/18/16 at 14:15; Stop 11/18/16 at 15:42; Status DC Pioglitazone HCl (Actos) 45 mg DAILY PO Last administered on 11/19/16 11:03; Start 11/19/16 at 09:00 Acetaminophen (Tylenol) 650 mg PRN Q4HRS PRN PO MILD PAIN / TEMP; Start at 15:30 Al Hydroxide/Mg Hydroxide (Mylanta Plus Xs) 30 ml PRN Q2HR PRN PO HEARTBURN / GAS; Start 11/18/16 at 15:30 Aspirin (Dev Aspirin) 81 mg DAILYWBKFT PO ; Start 11/19/16 at 08:00; Stop 05/28 at 10:54; Status DC Atorvastatin Calcium (Lipitor) 10 mg QHS PO Last administered on 11/18/16 21:20 ; Start 11/18/16 at 21:00; Stop 11/19/16 at 08:33; Status DC Colestipol HCl (Colestid) 1 gm BID@10,22 PO ; Start 11/18/16 at 22:00 Fentanyl (Duragesic 25mcg/ Hr Patch) 1 patch Q3DAYS TD Last administered on 11/18 17:54; Start 11/18/16 at 18:00 Hydrochlorothiazide (Hydrodiuril) 25 mg DAILY PO Last administered on 11:04; Start 11/19/16 at 09:00 Isosorbide Mononitrate (Imdur) 30 mg DAILY PO Last administered on 11/19/16 11 :05; Start 11/19/16 at 09:00 Levetiracetam (Keppra) 750 mg BID PO Last administered on 11/19/16 11:06; Start 11/18/16 at 21:00 Insulin Detemir (Levemir) 4 units QHS SQ Last administered on 11/19/16 00:43; Start 11/18/16 at 21:00 Insulin Aspart (Novolog) 4 units TIDAC SQ Last administered on 11/19/16 17:26 ; Start 11/19/16 at 07:30 Lorazepam (Ativan) 1 mg PRN TID PRN PO ANXIETY / AGITATION Last administered on 11/19/16 15:27; Start 11/18/16 at 15:30 Metformin HCl (Glucophage) 500 mg BIDWMEALS PO ; Start 11/18/16 at 17:00 Metoprolol Tartrate (Lopressor) 50 mg BID PO Last administered on 11/19/16 11: 06; Start 11/18/16 at 21:00 Multivitamins (Thera M Plus) 1 tab DAILY PO Last administered on 11/19/16 11: 05; Start 11/19/16 at 09:00 Nitroglycerin (Nitrostat) 0.4 mg PRN Q5MIN PRN SL CHEST PAIN; Start 11/18/16 at 15:30 Oxycodone HCl (Roxicodone) 5 mg PRN BID PRN PO MODERATE PAIN Last administered on 11/19/16 11:53; Start 11/18/16 at 15:30 Clopidogrel Bisulfate (Plavix) 75 mg DAILYWBKFT PO Last administered on 11:04; Start 11/19/16 at 08:00 Pantoprazole Sodium (Protonix) 40 mg BIDAC PO Last administered on 11/19/16 16 :30; Start 11/18/16 at 18:00 Spironolactone (Aldactone) 25 mg DAILY PO Last administered on 11/19/16 11:06 ; Start 11/19/16 at 09:00 Losartan Potassium (Cozaar) 100 mg DAILY PO Last administered on 11/19/16 11: 05; Start 11/19/16 at 09:00 Cyanocobalamin (Vitamin B-12) 1,000 mcg DAILY PO Last administered on 11:03; Start 11/19/16 at 09:00 Ondansetron HCl (Zofran Odt) 4 mg TIDAC PO Last administered on 11/19/16 16:30 ; Start 11/18/16 at 16:30 Zolpidem Tartrate (Ambien) 5 mg PRN QHS PRN PO INSOMNIA Last administered on 21:21; Start 11/18/16 at 15:30 Metoclopramide HCl (Reglan) 10 mg BIDBFRMEAL PO Last administered on 11/19/16 16:30; Start 11/18/16 at 16:30 Lidocaine HCl 1 ml STK-MED ONCE .ROUTE ; Start 11/18/16 at 20:20; Stop 11/18/16 at 20:21; Status DC Regadenoson (Lexiscan) 0.4 mg 1X ONCE IV Last administered on 11/19/16 10:44 ; Start 11/19/16 at 08:15; Stop 11/19/16 at 08:16; Status DC Atorvastatin Calcium (Lipitor) 40 mg QHS PO ; Start 11/19/16 at 21:00 Aspirin (Children'S Aspirin) 81 mg DAILYWBKFT PO Last administered on 11:13; Start 11/19/16 at 10:54 Oxycodone HCl (Roxicodone) 5 mg PRN Q4HRS PRN PO PAIN Last administered on 11/19 17:24; Start 11/19/16 at 17:15 Active Scripts Active Percocet 5-325 Mg Tablet (Oxycodone/Acetaminophen) 1 Each Tablet 1 Tab PO PRN Q6HRS PRN Pantoprazole Sodium 40 Mg Tablet.dr 40 Mg PO BIDAC Metoclopramide Hcl 10 Mg Tablet 10 Mg PO QIDACHS Levemir Flextouch (Insulin Detemir) 100 Unit/1 Ml Insuln.pen 4 Units SQ QHS Oxycodone-Acetaminophen 10-325 (Oxycodone Hcl/Acetaminophen) 1 Each Tablet 1 Tab PO PRN QID PRN Ondansetron Odt (Ondansetron) 4 Mg Tab.rapdis 4 Mg PO TIDAC Novolog Flexpen (Insulin Aspart) 100 Unit/1 Ml Insuln.pen 4 Units SQ TIDAC FENTANYL 25mcg/hr (Fentanyl) 1 Each Patch.td72 1 Patch TD Q3DAYS Amlodipine Besylate 10 Mg Tablet 10 Mg PO DAILY Reported Valsartan 320 Mg Tablet 320 Mg PO DAILY Colestipol Hcl 1 Gm Tablet 1 Gm PO BID Metoprolol Tartrate 50 Mg Tablet 50 Mg PO BID Buspirone Hcl 10 Mg Tablet 10 Mg PO TID Ambien (Zolpidem Tartrate) 5 Mg Tablet 5 Mg PO HS Lorazepam 1 Mg Tablet 1 Mg PO TID Clopidogrel (Clopidogrel Bisulfate) 75 Mg Tablet 75 Mg PO DAILY Atorvastatin Calcium 10 Mg Tablet 10 Mg PO HS Lamictal (Lamotrigine) 150 Mg Tablet 200 Mg PO DAILY Keppra (Levetiracetam) 750 Mg Tablet 750 Mg PO BID Metformin Hcl 1,000 Mg Tablet 1,000 Mg PO BID Actos (Pioglitazone Hcl) 45 Mg Tablet 15 Mg PO DAILY Allergies Allergies: Coded Allergies: Iodinated Contrast Media - Oral and (Verified Allergy, Severe, Anaphylaxis , 05/27/16) Penicillins (Verified Allergy, Intermediate, 05/27/16) atenolol (Verified Allergy, Intermediate, 05/27/16) erythromycin base (Verified Allergy, Intermediate, 05/27/16) iodine (Verified Allergy, Intermediate, 05/27/16) levofloxacin (Verified Allergy, Intermediate, 05/27/16) pregabalin (Verified Allergy, Intermediate, 05/27/16) Vitals VITALS Vital Signs Date Time Temp Pulse Resp B/P Pulse Ox O2 Delivery O2 Flow Rate FiO2 11/19/16 17:24 18 Room Air 11/19/16 15:00 98.1 65 117/60 96 98.1 Labs Labs Laboratory Tests Test 11/18/16 12:37 11/18/16 13:15 11/18/16 17:43 11/18/16 19:50 Urine Collection Type Unknown Urine Color Yellow Urine Clarity Clear Urine pH 7.0 Urine Specific Ucon <=1.005 Urine Protein Negativemg/dL (NEG-TRACE) Urine Glucose (UA) Negativemg/dL (NEG) Urine Ketones (Stick) Negativemg/dL (NEG) Urine Blood Negative (NEG) Urine Nitrite Negative (NEG) Urine Bilirubin Negative (NEG) Urine Urobilinogen Dipstick 0.2mg/dL (0.2 mg/dL) Urine Leukocyte Esterase Trace (NEG) Urine RBC 0/HPF (0-2) Urine WBC 0/HPF (0-4) Urine Squamous Epithelial Cells Occ/LPF Urine Transitional Epithelial Cells Mod/LPF Urine Bacteria 0/HPF (0-FEW) White Blood Count 7.4x10^3/uL (4.0-11.0) Red Blood Count 4.04x10^6/uL (3.50-5.40) Hemoglobin 12.7g/dL (12.0-15.5) Hematocrit 38.0% (36.0-47.0) Mean Corpuscular Volume 94fL (79-100) Mean Corpuscular Hemoglobin 32pg (25-35) Mean Corpuscular Hemoglobin Concent 34g/dL (31-37) Red Cell Distribution Width 14.1% (11.5-14.5) Platelet Count 395x10^3/uL (140-400) Neutrophils (%) (Auto) 55% (31-73) Lymphocytes (%) (Auto) 35% (24-48) Monocytes (%) (Auto) 8% (0-9) Eosinophils (%) (Auto) 1% (0-3) Basophils (%) (Auto) 1% (0-3) Neutrophils # (Auto) 4.0x10^3uL (1.8-7.7) Lymphocytes # (Auto) 2.6x10^3/uL (1.0-4.8) Monocytes # (Auto) 0.6x10^3/uL (0.0-1.1) Eosinophils # (Auto) 0.1x10^3/uL (0.0-0.7) Basophils # (Auto) 0.1x10^3/uL (0.0-0.2) Sodium Level 142mmol/L (136-145) Potassium Level 3.9mmol/L (3.5-5.1) Chloride Level 103mmol/L (98-107) Carbon Dioxide Level 27mmol/L (21-32) Anion Gap 12 (6-14) Blood Urea Nitrogen 23mg/dL (7-20) Creatinine 1.0mg/dL (0.6-1.0) Estimated GFR (Cockcroft-Gault) 54.7 BUN/Creatinine Ratio 23 (6-20) Glucose Level 134mg/dL (70-99) Calcium Level 9.9mg/dL (8.5-10.1) Total Bilirubin 0.2mg/dL (0.2-1.0) Aspartate Amino Transf (AST/SGOT) 13U/L (15-37) Alanine Aminotransferase (ALT/SGPT) 20U/L (14-59) Alkaline Phosphatase 98U/L (46-116) Troponin I Quantitative < 0.017ng/mL (0.000-0.055) < 0.017ng/mL (0.000-0.055) GY-Wtc-M-Type Natriuretic Peptide 217pg/mL (0-124) Total Protein 8.2g/dL (6.4-8.2) Albumin 4.3g/dL (3.4-5.0) Albumin/Globulin Ratio 1.1 (1.0-1.7) Glucose (Fingerstick) 155mg/dL (70-99) Test 11/18/16 20:51 11/19/16 06:20 11/19/16 07:36 11/19/16 10:59 Glucose (Fingerstick) 200mg/dL (70-99) 116mg/dL (70-99) 128mg/dL (70-99) Magnesium Level 1.8mg/dL (1.8-2.4) Troponin I Quantitative 0.030ng/mL (0.000-0.055) Triglycerides Level 400mg/dL (0-150) Cholesterol Level 275mg/dL (0-200) LDL Cholesterol, Calculated 148mg/dL (0-100) VLDL Cholesterol, Calculated 80mg/dL (0-40) HDL Cholesterol 47mg/dL (40-60) Cholesterol/HDL Ratio 5.9 Test 11/19/16 16:54 Glucose (Fingerstick) 175mg/dL (70-99) Laboratory Tests Test 11/18/16 19:50 11/18/16 20:51 11/19/16 06:20 11/19/16 07:36 Troponin I Quantitative < 0.017ng/mL (0.000-0.055) 0.030ng/mL (0.000-0.055) Glucose (Fingerstick) 200mg/dL (70-99) 116mg/dL (70-99) Magnesium Level 1.8mg/dL (1.8-2.4) Triglycerides Level 400mg/dL (0-150) Cholesterol Level 275mg/dL (0-200) LDL Cholesterol, Calculated 148mg/dL (0-100) VLDL Cholesterol, Calculated 80mg/dL (0-40) HDL Cholesterol 47mg/dL (40-60) Cholesterol/HDL Ratio 5.9 Test 11/19/16 10:59 11/19/16 16:54 Glucose (Fingerstick) 128mg/dL (70-99) 175mg/dL (70-99) RAVI NAGEL MD Nov 19, 2016 18:15
--- NOTE | 2016-11-19 18:40 | RAD ---
APPROVED REPORT Test Type: Pharmacological Stress Nurse/Tech: Joi Kinney R.N. Test Indications: dizziness Cardiac History: cabg, triple, htn, dm, Medications: see ehr Medical History: see ehr Resting ECG: SR Resting Heart Rate: 72 bpm Resting Blood Pressure: 149/75mmHg Pretest Chest Pain: No chest pain Nurse/Tech Notes lungs cta, heart tones regular, good radial pulse Consent: The procedure was explained to the patient in lay terms. Informed consent was witnessed. Hugh eout was entered into [employer]. History and Stress Test performed by Joi Kinney R.N. Pharm. Details Pharmacologic stress testing was performed using 0.4mg per 5ml of regadenoson given intravenously ove r 7-10 seconds. Stress Symptoms No chest pain or symptoms.Nausea POST EXERCISE Reason for Termination: Infusion complete Target HR: No Max HR: 107 bpm Max Blood Pressure: 161/72mmHg Chest Pain: No. Arrhythmia: No. ST Change: No. Imaging Protocol IMAGE PROTOCOL: Rest Tc-99m/stress Tc-99m 1 day Rest: Stress: Viability: Radiopharm.Tc99m DmdilburxTe28e Sestamibi Vktx74lKz 32.5mCi Duration 15min. 12min. Img Date 11/19/2016 11/19/2016 Inj-Img [id number]. 60min. Rest Admin Site:IV - PICC LineAdministrator:Tarik Diaz RT (R)(N) Stress Admin Site: IV - PICC LineAdministrator: Shaina Rojo RT (R)(N) STRESS DATA End Diast. Vol.81.0mlAv. Heart Rate64.0bpm End Syst. Vol.22.0mlCO Index BSA0.0L/min Myocardial Gryj791.0gEject. Bddboxjl59.0% Stress Rates Pk. Fill Rate2.34EDV/secLVtime Pk. Fill 129.94msec Pk. Empty Rate3.46ESV/secLVtime Pk. Kpxmz746.67msec 08/14 Pk. Fill1.54EDV/sec Stress Scores Regional WT0.00Summed WT0.00 Regional WM0.00Summed WM10.00 LV Perf. Quant 17 Seg. SSS10.00 17 Seg. SRS10.00 17 Seg. SDS3.00 Stress Defect Extent (% LAD)26.30Rest Defect Extent (% LAD)23.10Rev. Defect Extent (% LAD)10.60 Stress Defect Extent (% LCX) 7.50Rest Defect Extent (% LCX)11.30Rev. Defect Extent (% LCX)0.00 Stress Defect Extent (% RCA)5.60Rest Defect Extent (% RCA)20.00Rev. Defect Extent (% RCA)0.00 Stress Defect Extent (% JUANA)19.60Rest Defect Extent (% JUANA)23.90Rev. Defect Extent (% JUANA)4.80 Conclusion 1. No electrocardiographic changes suggestive of myocardial ischemia with pharmacological stress. 2. Moderate sized perfusion defect over the apex both with stress and rest suggestive of a scar. 3. Small to moderate sized perfusion defect over the anterior wall with stress suggestive of myocard ial ischemia. 4. Hypokinesis over the apex and normal wall motion and wall thickening over the rest of the myocard ium with an ejection fraction of 73%. 5. Scan indicates moderate riskfor f future cardiac events.
[2016-11-19 19:00] VITALS: BP_SYST 105; BP_SYST 112; BP_SYST 99; BP_DIAS 48; BP_DIAS 55; BP_DIAS 56
[2016-11-19] MEDS ORDERED: FAMOTIDINE 20 MG TABLET. PO ONE (21:00)
[2016-11-19] MEDS ORDERED: DIPHENHYDRAMINE HCL 25 MG CAPSULE PO ONE (21:00)
[2016-11-19] MEDS ORDERED: PREDNISONE 20 MG TABLET PO ONE ×2 (21:00→23:30)
[2016-11-19] MEDS: ZOLPIDEM 5 MG TABLET. PO PRN (21:30)
[2016-11-19] MEDS: ATORVASTATIN CALCIUM 10 MG TABLET. PO SCH (21:32)
[2016-11-19 23:00] VITALS: BP 107/47
[2016-11-20] VITALS (22 sets, daily range): BP systolic 108–186; BP diastolic 46–92
[2016-11-20] MEDS: OXYCODONE IR 5 MG TABLET. PO PRN ×6 (01:25→22:34)
--- NOTE | 2016-11-20 05:05 | CONS ---
DATE OF CONSULTATION: HISTORY OF PRESENT ILLNESS: This is a 71-year-old white female who presented herself to the Emergency Room on 10/18/2016 complaining of just not feeling well and dizziness. I had seen her last week. She complained of shortness of breath with exertion such as climbing stairs. She had a vague tightness in her chest, but was not able to quite describe it. Because of her history of coronary artery disease she was scheduled for a stress test. She went for the stress test. The Nuclear Medicine personnel were not able to get an IV into her. She walked away from it. I persuaded her to come back again and this time she went to the outpatient department to have the IV placed before she went to Nuclear Medicine. Again it was not possible. Again she walked away. When I saw her in the office on the we talked about it. Her symptoms did not seem to be consistent with significant angina. She also complained of severe pain in her ankle with any type of exercise and she felt that that could be causing some of the shortness of breath and chest discomfort. It was quite reasonable to assume that. Thus we put off any further evaluation. However, two days later she decided to come into the Emergency Room for dizziness and also she stated that after she had seen me she had a single episode in which she had tightness in her throat. The history dates back to several years ago when she had open heart surgery. I believe I first saw her on 04/2014. She had chest discomfort that was suggestive of angina. She had coronary arteriograms done. The N[place]ES to the LAD was patent. However, the distal portion of the LAD was small and string like. The right coronary artery was patent with a patent stent in it. The SVG to the OM branch was patent. There was 90% obstruction in the OM branch. This was dilated and stented. Since then, she has done fairly well. She did undergo an MPI in 08/2015, a year ago, at which time it showed apical scar which was consistent with the finding previously. No further investigation was done. She was referred to the rehab. I am not quite sure how much she participated in the rehab. She has type 2 diabetes. She has her hemoglobin A1c checked regularly and she says that it is within the acceptable level. She also has gastroparesis and microalbuminuria. She has hypertension and dyslipidemia. ALLERGIES: SHE IS ALLERGIC TO SEVERAL DRUGS INCLUDING IV IODINE. MEDICATIONS: Her present medications are: 1. Amlodipine 10 mg a day. 2. Atorvastatin 10 mg a day. 3. BuSpar 10 mg 3 times a day. 4. Plavix 75 mg a day. 5. Fentanyl patches 25 mcg an hour. 6. NovoLog 4 units before each meal. 7. Levemir 4 units at night. 8. Lamictal 150 mg a day. 9. Keppra 750 mg twice a day. 10. Lorazepam 1 mg 3 times a day. 11. Metformin 1000 mg twice a day. 12. Reglan 10 mg 3 times a day and at night. 13. Metoprolol tartrate 50 mg twice a day. 14. Zofran p.r.n. 15. Percocet 10/325 mg q.i.d. p.r.n. 16. Protonix 40 mg a day. 17. Actos 15 mg a day. 18. Valsartan 320 mg a day. 19. Ambien 5 mg at night. PHYSICAL EXAMINATION: GENERAL: She was in no distress. She was pleasant and oriented. VITAL SIGNS: The heart rate was 70 per minute and regular. The blood pressure was 99/48 supine, 105/55 sitting and 112/56 standing, she does have a labile blood pressure and earlier it was 176/76. LUNGS: Clear. HEART: The heart sounds are normal with no murmur or gallop. ABDOMEN: Soft. EXTREMITIES: The carotids are palpable with no bruits. The radial pulses are palpable. An EKG showed no significant changes. A chest x-ray was normal. The hemoglobin was 12.7. The blood sugars were normal. The TSH was 0.100. The total cholesterol was 275. The triglycerides were 400. The LDL cholesterol was 148. The HDL cholesterol was 47. The magnesium was 1.8. The cardiac enzymes in the form of troponin was normal. IMPRESSION: 1. Dizziness, etiology unclear. Neurology is seeing her. She gives history of seizures. 2. Atypical chest pain in a patient with known coronary artery disease. 3. Dyslipidemia with LDL not at the previous recommendation. 4. Hypertension. 5. Insulin-dependent diabetes mellitus. 6. Gastroparesis. 7. Severe ankle pain after surgery. An MPI was done, as before shows a scar over the apex. However, there is now a new area though small over the anterior wall. This is just a small area over the anterior wall and could be consistent with a smaller caliber of the LAD. However, since this is new and since she continues to have symptoms and since we now have a venous access, I think it is best that we proceed with coronary arteriograms this admission. She is agreeable. I will arrange for it. She will be treated for the iodine allergy. I would like to bring her LDL cholesterol down to 70 if possible as per the old guidelines. Thank you for asking me to see her. AIYANA HARRINGTON MD DR: ELLIE/mandy JOB#: [id number] / [id number]
[2016-11-20] MEDS: ONDANSETRON ODT 4 MG TAB.RAPDIS. PO SCH ×3 (05:30→16:40)
[2016-11-20] MEDS: LORAZEPAM 1 MG TABLET. PO PRN ×3 (05:30→21:00)
[2016-11-20] MEDS ORDERED: FAMOTIDINE 20 MG/2 ML VIAL IVP PRN (06:00)
[2016-11-20] MEDS ORDERED: HYDROCORTISONE SOD SUCC/PF 100 MG/2 ML VIAL. IV PRN (06:00)
[2016-11-20] MEDS ORDERED: DIPHENHYDRAMINE 50 MG/ML VIAL. IVP PRN (06:00)
[2016-11-20] MEDS ORDERED: IV NORMAL SALINE 1000ML BAG 1,000 ML IV SCH ×2 (07:00→15:14)
[2016-11-20] MEDS: METFORMIN 500 MG TABLET. PO SCH (07:10)
[2016-11-20] MEDS: PANTOPRAZOLE 40 MG TABLET.DR. PO SCH ×2 (07:30→15:25)
[2016-11-20] MEDS: INSULIN ASPART 300 UNITS/3 ML INSULN.PEN SQ SCH ×3 (07:30→17:09)
[2016-11-20] MEDS: METOCLOPRAMIDE 10 MG TABLET. PO SCH ×2 (07:30→15:26)
--- NOTE | 2016-11-20 07:33 | RAD ---
Carotid ultrasound, 11/19/2016: History: Dizziness Duplex evaluation of the carotid arteries in neck was performed including grayscale, color-flow and spectral Doppler analysis. There is mild to moderate atherosclerotic plaquing at the carotid bifurcations. The plaques are partially calcified. The peak systolic velocity in the right internal carotid artery is 90 cm/s within end-diastolic velocity of 19 cm/s. The internal carotid artery to common carotid artery ratio is 1.3. The Doppler findings suggest narrowing in the 0-50% diameter range. On the left the peak systolic velocity in the internal carotid artery is 106 cm per sec with an end-diastolic velocity of 27 cm/s. The internal carotid artery to common carotid artery ratio is 1.8. These Doppler findings also suggest narrowing in the 0-50% diameter range. Antegrade flow is present in the left vertebral artery in the neck. The right vertebral artery was not satisfactorily visualized. That vessel was also not visualized on an old exam from 06/19/2009. IMPRESSION: 1. Mild to moderate atherosclerotic plaquing at both carotid bifurcations with underlying luminal narrowing in the 0-50% diameter range bilaterally. 2. Nonvisualization of the right vertebral artery. This suggests hypoplasia or chronic occlusion. Note: Stenosis calculations for CT, MRA and conventional angiography are based upon determination of the distal ICA diameter in accordance with the NASCET methodology. Stenosis calculations for Doppler studies are derived from validated velocity criteria which are known to correlate with NASCET methodology of determining stenosis.
--- NOTE | 2016-11-20 08:41 | RAD ---
CT scan of the head without contrast 11/20/2016 Clinical History: Dizziness. History of seizures.. Technique: Unenhanced, contiguous, 5 mm axial sections were obtained through the head. One or more of the following individualized dose reduction techniques were utilized for this study: 1. Automated exposure control. 2. Adjustment of the mA and/or kV according to patient size. 3. Use of iterative reconstruction technique. Findings: Comparison study is dated 11/20/2016. There is generalized parenchymal atrophy. Small scattered areas of decreased attenuation are seen within the periventricular and subcortical white matter of both cerebral hemispheres consistent with areas of small vessel ischemic disease. No acute parenchymal abnormality is seen. No extra-axial fluid collection is noted. No skull fracture is seen. Impression: No acute intracranial abnormality is seen.
--- NOTE | 2016-11-20 09:28 | PDOC ---
PROGRESS NOTES Subjective Subjective discussed wit dr. jordan. anterior wall ischemia noted on MPI stress test so scheduled for cardiac cath today with prednisone and benadryl prep so blood sugars are higher. carotid doppler adn echocardiogram negative except for nonvisualization of right vertebral artery. lab reviewed. says metformin was discontinued by her GI doctor for diarrhea which has helped so will d/c metormin. Objective Objective Vital Signs Date Time Temp Pulse Resp B/P Pulse Ox O2 Delivery O2 Flow Rate FiO2 11/20/16 09:17 18 11/20/16 08:00 Room Air 11/20/16 07:10 88 152/84 98 11/20/16 07:00 97.9 97.9 Intake and Output 11/20/16 06:59 Intake Total 640 ml Output Total 750 ml Balance -110 ml Intake Oral 640 ml Output Urine Total 750 ml # Voids 3 Physical Exam Abdomen: Soft Heart: Regular rate, Normal S2 Extremities: No edema General: Alert HEENT: Atraumatic Lungs: Clear to auscultation Neuro: Normal speech Psych/Mental Status: Mental status NL Skin: No rashes Assessment Assessment Problems Medical Problems:1. Dizziness. no orthostatic hypotension 2. Chest pain 3. Coronary artery disease. 4. 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 5. Hypertension. 6. Hyperlipidemia. 7. Reflux esophagitis. abnormal MPI with anterior wall ischemia (1) Dizziness Status: Acute Plan Plan of Care d/c metformin cardiac cath today lab tomorrow iv normal saline for cardiac cath prep. prednisone and benadryl prep Comment Review of Relevant I have reviewed the following items maldonado (where applicable) has been applied. Labs Laboratory Tests Test 11/18/16 12:37 11/18/16 13:15 11/18/16 17:43 11/18/16 19:50 Urine Collection Type Unknown Urine Color Yellow Urine Clarity Clear Urine pH 7.0 Urine Specific [place] <=1.005 Urine Protein Negativemg/dL (NEG-TRACE) Urine Glucose (UA) Negativemg/dL (NEG) Urine Ketones (Stick) Negativemg/dL (NEG) Urine Blood Negative (NEG) Urine Nitrite Negative (NEG) Urine Bilirubin Negative (NEG) Urine Urobilinogen Dipstick 0.2mg/dL (0.2 mg/dL) Urine Leukocyte Esterase Trace (NEG) Urine RBC 0/HPF (0-2) Urine WBC 0/HPF (0-4) Urine Squamous Epithelial Cells Occ/LPF Urine Transitional Epithelial Cells Mod/LPF Urine Bacteria 0/HPF (0-FEW) White Blood Count 7.4x10^3/uL (4.0-11.0) Red Blood Count 4.04x10^6/uL (3.50-5.40) Hemoglobin 12.7g/dL (12.0-15.5) Hematocrit 38.0% (36.0-47.0) Mean Corpuscular Volume 94fL (79-100) Mean Corpuscular Hemoglobin 32pg (25-35) Mean Corpuscular Hemoglobin Concent 34g/dL (31-37) Red Cell Distribution Width 14.1% (11.5-14.5) Platelet Count 395x10^3/uL (140-400) Neutrophils (%) (Auto) 55% (31-73) Lymphocytes (%) (Auto) 35% (24-48) Monocytes (%) (Auto) 8% (0-9) Eosinophils (%) (Auto) 1% (0-3) Basophils (%) (Auto) 1% (0-3) Neutrophils # (Auto) 4.0x10^3uL (1.8-7.7) Lymphocytes # (Auto) 2.6x10^3/uL (1.0-4.8) Monocytes # (Auto) 0.6x10^3/uL (0.0-1.1) Eosinophils # (Auto) 0.1x10^3/uL (0.0-0.7) Basophils # (Auto) 0.1x10^3/uL (0.0-0.2) Sodium Level 142mmol/L (136-145) Potassium Level 3.9mmol/L (3.5-5.1) Chloride Level 103mmol/L (98-107) Carbon Dioxide Level 27mmol/L (21-32) Anion Gap 12 (6-14) Blood Urea Nitrogen 23mg/dL (7-20) Creatinine 1.0mg/dL (0.6-1.0) Estimated GFR (Cockcroft-Gault) 54.7 BUN/Creatinine Ratio 23 (6-20) Glucose Level 134mg/dL (70-99) Calcium Level 9.9mg/dL (8.5-10.1) Total Bilirubin 0.2mg/dL (0.2-1.0) Aspartate Amino Transf (AST/SGOT) 13U/L (15-37) Alanine Aminotransferase (ALT/SGPT) 20U/L (14-59) Alkaline Phosphatase 98U/L (46-116) Troponin I Quantitative < 0.017ng/mL (0.000-0.055) < 0.017ng/mL (0.000-0.055) RO-Xxc-G-Type Natriuretic Peptide 217pg/mL (0-124) Total Protein 8.2g/dL (6.4-8.2) Albumin 4.3g/dL (3.4-5.0) Albumin/Globulin Ratio 1.1 (1.0-1.7) Glucose (Fingerstick) 155mg/dL (70-99) Test 11/18/16 20:51 11/19/16 06:20 11/19/16 07:36 11/19/16 10:59 Glucose (Fingerstick) 200mg/dL (70-99) 116mg/dL (70-99) 128mg/dL (70-99) Hemoglobin A1c 6.6% (4.8-5.6) Magnesium Level 1.8mg/dL (1.8-2.4) Creatine Kinase 83U/L (26-192) Troponin I Quantitative 0.030ng/mL (0.000-0.055) Triglycerides Level 400mg/dL (0-150) Cholesterol Level 275mg/dL (0-200) LDL Cholesterol, Calculated 148mg/dL (0-100) VLDL Cholesterol, Calculated 80mg/dL (0-40) HDL Cholesterol 47mg/dL (40-60) Cholesterol/HDL Ratio 5.9 Vitamin B12 Level 242pg/mL (247-911) Thyroid Stimulating Hormone (TSH) 0.100uIU/mL (0.358-3.74) Test 11/19/16 16:54 11/19/16 21:07 11/20/16 07:34 Glucose (Fingerstick) 175mg/dL (70-99) 156mg/dL (70-99) 184mg/dL (70-99) Laboratory Tests Test 11/19/16 10:59 11/19/16 16:54 11/19/16 21:07 11/20/16 07:34 Glucose (Fingerstick) 128mg/dL (70-99) 175mg/dL (70-99) 156mg/dL (70-99) 184mg/dL (70-99) Microbiology 11/18/16 Urine Culture - Preliminary, Resulted 11/18/16 Urine Culture Result 1 (JUDY) - Preliminary, Resulted Medications Current Medications Ondansetron HCl (Zofran) 4 mg PRN Q8HRS PRN IV NAUSEA/VOMITING Last administered on 11/19/16 01:05; Start 11/18/16 at 14:15; Stop 11/19/16 at 14:14 ; Status DC Fentanyl Citrate 50 mcg 50 mcg PRN Q2HR PRN IV PAIN Last administered on 11:00; Start 11/18/16 at 14:15; Stop 11/19/16 at 14:14; Status DC Sodium Chloride (Iv Sodium Chloride 0.9% 1000ml Bag) 1,000 ml @ 125 mls/hr Q8H IV ; Start 11/18/16 at 14:08; Stop 11/18/16 at 19:29; Status DC Acetaminophen (Tylenol) 650 mg PRN Q4HRS PRN PO FEVER; Start 11/18/16 at 14:15; Stop 11/18/16 at 15:42; Status DC Pioglitazone HCl (Actos) 45 mg DAILY PO Last administered on 11/19/16 11:03; Start 11/19/16 at 09:00 Acetaminophen (Tylenol) 650 mg PRN Q4HRS PRN PO MILD PAIN / TEMP; Start at 15:30 Al Hydroxide/Mg Hydroxide (Mylanta Plus Xs) 30 ml PRN Q2HR PRN PO HEARTBURN / GAS; Start 11/18/16 at 15:30 Aspirin (Dev Aspirin) 81 mg DAILYWBKFT PO ; Start 11/19/16 at 08:00; Stop 05/28 at 10:54; Status DC Atorvastatin Calcium (Lipitor) 10 mg QHS PO Last administered on 11/18/16 21:20 ; Start 11/18/16 at 21:00; Stop 11/19/16 at 08:33; Status DC Colestipol HCl (Colestid) 1 gm BID@10,22 PO ; Start 11/18/16 at 22:00 Fentanyl (Duragesic 25mcg/ Hr Patch) 1 patch Q3DAYS TD Last administered on 11/18 17:54; Start 11/18/16 at 18:00 Hydrochlorothiazide (Hydrodiuril) 25 mg DAILY PO Last administered on 11:04; Start 11/19/16 at 09:00 Isosorbide Mononitrate (Imdur) 30 mg DAILY PO Last administered on 11/19/16 11 :05; Start 11/19/16 at 09:00 Levetiracetam (Keppra) 750 mg BID PO Last administered on 11/19/16 21:30; Start 11/18/16 at 21:00 Insulin Detemir (Levemir) 4 units QHS SQ Last administered on 11/19/16 21:42; Start 11/18/16 at 21:00 Insulin Aspart (Novolog) 4 units TIDAC SQ Last administered on 11/19/16 17:26 ; Start 11/19/16 at 07:30 Lorazepam (Ativan) 1 mg PRN TID PRN PO ANXIETY / AGITATION Last administered on 11/20/16 05:30; Start 11/18/16 at 15:30 Metformin HCl (Glucophage) 500 mg BIDWMEALS PO ; Start 11/18/16 at 17:00 Metoprolol Tartrate (Lopressor) 50 mg BID PO Last administered on 11/19/16 21: 31; Start 11/18/16 at 21:00 Multivitamins (Thera M Plus) 1 tab DAILY PO Last administered on 11/19/16 11: 05; Start 11/19/16 at 09:00 Nitroglycerin (Nitrostat) 0.4 mg PRN Q5MIN PRN SL CHEST PAIN; Start 11/18/16 at 15:30 Oxycodone HCl (Roxicodone) 5 mg PRN BID PRN PO MODERATE PAIN Last administered on 11/19/16 11:53; Start 11/18/16 at 15:30; Stop 11/19/16 at 18:56; Status DC Clopidogrel Bisulfate (Plavix) 75 mg DAILYWBKFT PO Last administered on 11:04; Start 11/19/16 at 08:00 Pantoprazole Sodium (Protonix) 40 mg BIDAC PO Last administered on 11/19/16 16 :30; Start 11/18/16 at 18:00 Spironolactone (Aldactone) 25 mg DAILY PO Last administered on 11/19/16 11:06 ; Start 11/19/16 at 09:00 Losartan Potassium (Cozaar) 100 mg DAILY PO Last administered on 11/19/16 11: 05; Start 11/19/16 at 09:00 Cyanocobalamin (Vitamin B-12) 1,000 mcg DAILY PO Last administered on 11:03; Start 11/19/16 at 09:00 Ondansetron HCl (Zofran Odt) 4 mg TIDAC PO Last administered on 11/20/16 05:30 ; Start 11/18/16 at 16:30 Zolpidem Tartrate (Ambien) 5 mg PRN QHS PRN PO INSOMNIA Last administered on 21:30; Start 11/18/16 at 15:30 Metoclopramide HCl (Reglan) 10 mg BIDBFRMEAL PO Last administered on 11/19/16 16:30; Start 11/18/16 at 16:30 Lidocaine HCl 1 ml STK-MED ONCE .ROUTE ; Start 11/18/16 at 20:20; Stop 11/18/16 at 20:21; Status DC Regadenoson (Lexiscan) 0.4 mg 1X ONCE IV Last administered on 11/19/16 10:44 ; Start 11/19/16 at 08:15; Stop 11/19/16 at 08:16; Status DC Atorvastatin Calcium (Lipitor) 40 mg QHS PO Last administered on 11/19/16 21: 32; Start 11/19/16 at 21:00 Aspirin (Children'S Aspirin) 81 mg DAILYWBKFT PO Last administered on 11:13; Start 11/19/16 at 10:54 Oxycodone HCl (Roxicodone) 5 mg PRN Q4HRS PRN PO PAIN Last administered on 11/20 09:17; Start 11/19/16 at 17:15 Prednisone (Prednisone) 20 mg 1X ONCE PO Last administered on 11/19/16 21:30 ; Start 11/19/16 at 21:00; Stop 11/19/16 at 21:01; Status DC Prednisone (Prednisone) 20 mg 1X ONCE PO Last administered on 11/19/16 23:25 ; Start 11/19/16 at 23:30; Stop 11/19/16 at 23:31; Status DC Famotidine (Pepcid) 20 mg 1X ONCE PO Last administered on 11/19/16 21:33; Start 11/19/16 at 21:00; Stop 11/19/16 at 21:23; Status DC Diphenhydramine HCl (Benadryl) 25 mg 1X ONCE PO Last administered on 21:30; Start 11/19/16 at 21:00; Stop 11/19/16 at 21:23; Status DC Hydrocortisone Sodium Succinate (Solu-Cortef) 100 mg 1X PRN PRN IV LOGGER TO TOOL BUILDER; Start 11/20/16 at 06:00; Stop 11/20/16 at 18:00 Famotidine (Pepcid) 20 mg 1X PRN PRN IVP LOGGER TO TOOL BUILDER; Start 11/20/16 at 06:00; Stop 11/20/16 at 18:00 Diphenhydramine HCl 25 mg 25 mg 1X PRN PRN IVP LOGGER TO TOOL BUILDER; Start 11/20 at 06:00; Stop 11/20/16 at 18:00 Sodium Chloride (Iv Sodium Chloride 0.9% 1000ml Bag) 1,000 ml @ 75 mls/hr [id number] IV Last administered on 11/20/16 07:15; Start 11/20/16 at 07:00 Active Scripts Active Percocet 5-325 Mg Tablet (Oxycodone/Acetaminophen) 1 Each Tablet 1 Tab PO PRN Q6HRS PRN Pantoprazole Sodium 40 Mg Tablet.dr 40 Mg PO BIDAC Metoclopramide Hcl 10 Mg Tablet 10 Mg PO QIDACHS Levemir Flextouch (Insulin Detemir) 100 Unit/1 Ml Insuln.pen 4 Units SQ QHS Oxycodone-Acetaminophen 10-325 (Oxycodone Hcl/Acetaminophen) 1 Each Tablet 1 Tab PO PRN QID PRN Ondansetron Odt (Ondansetron) 4 Mg Tab.rapdis 4 Mg PO TIDAC Novolog Flexpen (Insulin Aspart) 100 Unit/1 Ml Insuln.pen 4 Units SQ TIDAC FENTANYL 25mcg/hr (Fentanyl) 1 Each Patch.td72 1 Patch TD Q3DAYS Amlodipine Besylate 10 Mg Tablet 10 Mg PO DAILY Reported Valsartan 320 Mg Tablet 320 Mg PO DAILY Colestipol Hcl 1 Gm Tablet 1 Gm PO BID Metoprolol Tartrate 50 Mg Tablet 50 Mg PO BID Buspirone Hcl 10 Mg Tablet 10 Mg PO TID Ambien (Zolpidem Tartrate) 5 Mg Tablet 5 Mg PO HS Lorazepam 1 Mg Tablet 1 Mg PO TID Clopidogrel (Clopidogrel Bisulfate) 75 Mg Tablet 75 Mg PO DAILY Atorvastatin Calcium 10 Mg Tablet 10 Mg PO HS Lamictal (Lamotrigine) 150 Mg Tablet 200 Mg PO DAILY Keppra (Levetiracetam) 750 Mg Tablet 750 Mg PO BID Metformin Hcl 1,000 Mg Tablet 1,000 Mg PO BID Actos (Pioglitazone Hcl) 45 Mg Tablet 15 Mg PO DAILY Vitals/I & O Vital Sign - Last 24 Hours 11/19/16 11/19/16 11/19/16 11/19/16 11:00 11:05 11:05 11:06 Temp 98.7 98.7 Pulse 81 81 81 81 Resp 20 B/P 176/76 176/76 176/76 176/76 Pulse Ox 99 O2 Delivery Room Air 11/19/16 11/19/16 11/19/16 11/19/16 11:53 12:53 15:00 17:24 Temp 98.1 98.1 Pulse 65 Resp 18 18 18 18 B/P 117/60 Pulse Ox 96 O2 Delivery Room Air Room Air Room Air Room Air 11/19/16 11/19/16 11/19/16 11/19/16 19:00 19:00 19:00 21:31 Temp 98.1 98.1 Pulse 74 78 81 81 Resp 20 B/P 99/48 105/55 112/56 112/56 Pulse Ox 94 O2 Delivery Room Air 11/19/16 11/19/16 11/20/16 11/20/16 21:31 23:00 01:25 03:09 Temp 98.1 98.1 98.1 98.1 Pulse 60 68 Resp 18 20 18 20 B/P 107/47 113/54 Pulse Ox 94 94 94 93 O2 Delivery Room Air Room Air Room Air Room Air 11/20/16 11/20/16 11/20/16 11/20/16 05:27 06:20 07:00 07:05 Temp 97.9 97.9 Pulse 82 84 Resp 16 18 18 18 B/P 120/75 135/78 Pulse Ox 93 93 97 99 O2 Delivery Room Air Room Air Room Air Room Air 11/20/16 11/20/16 11/20/16 07:10 08:00 09:17 Pulse 88 Resp 18 18 B/P 152/84 Pulse Ox 98 O2 Delivery Room Air Room Air Intake and Output 11/19/16 11/19/16 11/20/16 14:59 22:59 06:59 Intake Total 400 ml 240 ml Output Total 750 ml Balance 400 ml -510 ml DENICE IZAGUIRRE MD Nov 20, 2016 09:28
[2016-11-20] MEDS: COLESTIPOL HCL 1 GM TABLET PO SCH ×2 (10:00→21:08)
[2016-11-20] MEDS ORDERED: LIDOCAINE 2% 20 ML VIAL. ONE (11:23)
[2016-11-20] MEDS ORDERED: IODIXANOL 320 MG/ML 100 ML VIAL. ONE (11:23)
[2016-11-20] MEDS ORDERED: NITROGLYCERIN 200 MCG/2 ML SYRINGE FOR CATH/VASC LAB. ONE (11:26)
[2016-11-20] MEDS ORDERED: VERAPAMIL 5 MG/2 ML VIAL. ONE (11:27)
[2016-11-20] MEDS ORDERED: MIDAZOLAM HCL/PF 2 MG/2 ML VIAL. ONE (11:27)
[2016-11-20] MEDS ORDERED: FENTANYL PF 100 MCG/2 ML VIAL. ONE (11:27)
[2016-11-20] MEDS ORDERED: HEPARIN for IV BOLUS 10,000 UNIT/10 ML VIAL. ONE (11:27)
[2016-11-20 11:38] LABS: FREE T4 1.03 ng/dL (0.76-1.46)
[2016-11-20] MEDS ORDERED: IODIXANOL 320 MG/ML 100 ML VIAL. IART ONE (12:30)
[2016-11-20] MEDS ORDERED: VERAPAMIL 5 MG/2 ML VIAL. IART ONE (12:30)
[2016-11-20] MEDS ORDERED: MIDAZOLAM HCL/PF 2 MG/2 ML VIAL. IV ONE (12:30)
[2016-11-20] MEDS ORDERED: LIDOCAINE 2% 20 ML VIAL. IJ ONE (12:30)
[2016-11-20] MEDS ORDERED: FENTANYL PF 100 MCG/2 ML VIAL. IV ONE (12:30)
[2016-11-20] MEDS ORDERED: HEPARIN for IV BOLUS 10,000 UNIT/10 ML VIAL. IART ONE (12:30)
[2016-11-20] MEDS ORDERED: NITROGLYCERIN 200 MCG/2 ML SYRINGE FOR CATH/VASC LAB. IART ONE (12:30)
[2016-11-20] MEDS ORDERED: ONDANSETRON PF 4 MG/2 ML VIAL. ONE (13:17)
--- NOTE | 2016-11-20 13:23 | CARD ---
APPROVED REPORT Procedure(s) performed: Coronary Angiography with grafts, Left Heart Catheterization HISTORY The patient is a 71 year-old female with a history of : coronary artery disease, previous PCI (The PC I date was ), hypertension, previous CABG (The CABG date was ), dyslipidemia. INDICATION The indication(s) include : positive stress test. PROCEDURE NARRATIVE The patient was brought electively to the cardiac catheterization lab. A timeout was performed confi rming the patient's name, date of , procedure, and site of procedure. All necessary personnel w ere wearing the appropriate protective equipment and radiation monitor devices. After explaining the risks and benefits of the procedure and alternatives, informed consent was obtained. (See nursing no sanjay for medications administered). The left wrist was sterilely prepped and draped in the usual [facility] ion. The left wrist was infiltrated with 1 mL of 2% lidocaine for subcutaneous anesthesia. A 6 Fren ch Terumo glide sheath was inserted into the left radial artery without difficulty. Right and left c oronary and bypass angiography was performed using a AL1, LCB and JL3.5 and KEYONA catheters. Left vent ricular end diastolic pressure was obtained with a JR4 catheter and pullback was performed. All cath eter exchanges and advancements were performed over a guidewire. At case completion the left radial sheath was removed and a Terumo radial band was applied with 15 ml of air. The patient tolerated the procedure well and there were no immediate complications. HEMODYNAMICS: LVEDP 8 mm Hg No gradient on LV to aortic pullback. LEFT VENTRICULOGRAM: Deferred due to mild renal insufficiency. CORONARY ANGIOGRAPHY: LM is a large caliber vessel with normal angiographic appearance. LAD is a small caliber vessel with a proximal patent stent with diffuse 60% ISR and a focal 80% steno sis. The LAD is occluded in the mid segment. The distal vessel is severely/diffuse diseased and less than 1mm in size. D1 is a moderate caliber vessel with a proximal subtotal occlusion. The distal vessel fills via a pat ent vein graft and is free of significant disease. LCx is a moderate caliber non-dominant vessel with mild luminal irregularities. OM1 is a moderate caliber vessel with a patent stent extending into OM1. LPL is a moderate caliber vessel with a patent proximal stent. RCA is a large caliber dominant vessel with patent proximal to distal stents and minimal ISR. RPDA and RPL are moderate caliber vessels with normal angiographic appearance. BYPASS ANGIOGRAPHY: [place] to LAD is patent. The distal anastomosis is severely diseased and the distal LAD is severely dis eased and small and not intervenable. SVG to D1 is a large caliber, ectatic vessel with patent proximal and distal anastomosis. Conclusion 1. Normal LVEDP 2. Three vessel CAD with patent stents in the LCx and RCA. 3. Patent [place] to LAD and SVG to D1 4. Severely diffusely diseased and small caliber mid to distal LAD that is not intervenable. 5. Severe ISR of the proximal LAD with poor outflow, stable compared to prior and again suboptimal fo r repeat intervention. Recommendations Aggressive Medical Therapy
[2016-11-20] MEDS ORDERED: ONDANSETRON PF 4 MG/2 ML VIAL. IV ONE (13:30)
--- NOTE | 2016-11-20 14:43 | PDOC ---
PROGRESS NOTES Assessment Assessment Chronic dizziness x 4 months. 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 CAD, s/p CABG DM HTN HLD Hypertriglyceridemia, 400 Vit B12 insufficiency. GERD RECOMMENDATIONS/PLAN: Continue Plavix 75 mg daily. Continue Lipitor 40 mg HS. Vit B12 1 mg PO daily. Decreased consume high triglyceride and high cholesterol food. Treat medical diseases. No MRI due to spinal stimulator. CTA as needed as out-patient, but not change treatment and care. OT/PT Carotid A US + Doppler: No high grade stenosis. TSH low, but free T3 and free T4 normal. HISTORY OF THE PRESENT ILLNESS: 71-y-old female patent with above medical diseases has been having dizziness for about 4 months. She stated her symptoms of dizziness does did not go away and she felt dizzy all the time. Lying position seemed did not decrease her symptoms. She has unsteadiness as well. She stated dizziness improved on 11/20. PAST MEDICAL HISTORY: Please see above. PAST SURGERY HISTORY: S/P CABG ALLERGY: HYDROCODONE ATENOLOL ERYTHROMYCIN IODINE LEVAQUIN CAUSED A RASH PENICILLIN CAUSED A RASH LYRICA CAUSED A RASH TRAMADOL CAUSED FACIAL HIVES MEDICATIONS: Refer to [facility] FAMILY HISTORY: Non contributory. SOCIAL HISTORY: Denies current smoking, drinking, and illicit drug use. REVIEW OF SYSTEMS: Constitutional: No cachexia. Head: No recent traumatic brain or head injury. Skin: No edema. Ear: No infection, tinnitus. Eyes: No vision loss or color blindness. Nose: No bleeding or purulent discharges. Hearing: Hearing decrease. Neck: No injury. Cardiac: NCAD, s/p CABG, HTN, HLD. Pulmonary: No COPD. GI: No GI ulcer, GI bleeding. Urinary/genital: UTI. Endocrinologic: Diabetes Mellitus Skeletomuscular: No muscular atrophy, deformity. Neurological: see HP. Psychiatric: Denies drug use/abuse. Otherwise, not [id number] review of systems. PHYSICAL EXAMINATION: General appearance is in no acute distress. HEENT: Normocephalic and nontraumatic. Eyes, nose, ears, and throat are unremarkable. Neck is supple. No lymphadenopathy. Bruits over the left carotid artery? No crepitus. Cardiovascular: S1, S2, regular rate and rhythm. Pulmonary: Clear to auscultation bilaterally. Abdomen: Bowel sounds are positive. Abdomen is soft, nontender, and nondistended. Extremities: No rash, lesions, or edema. No restriction of range of motion NEUROLOGICAL EXAMINATION: Alert Oriented to time, place and person. PERRL. EOMI. CN: no focal findings. Muscle tone: within normal. Muscle strength: 5- DTR: 2 Plantar reflex: Flexor response bilaterally Gait: not examined in bed. Sensory exam: no abnormal findings. No acute cerebellar signs elicited. F-T-N test accurate. Objective Objective Vital Signs Date Time Temp Pulse Resp B/P Pulse Ox O2 Delivery O2 Flow Rate FiO2 11/20/16 14:15 18 97 Room Air 11/20/16 14:12 85 11/20/16 12:37 2.0 11/20/16 10:46 97.9 147/69 97.9 Intake and Output 11/20/16 07:00 Intake Total 640 ml Output Total 750 ml Balance -110 ml Intake Oral 640 ml Output Urine Total 750 ml # Voids 3 Vitals Signs Vitals VS - Last 72 Hours, by Label Date Time Temp Pulse Resp B/P Pulse Ox O2 Delivery O2 Flow Rate FiO2 11/20/16 14:15 18 97 Room Air 11/20/16 14:12 85 17 97 Room Air 11/20/16 14:02 92 13 97 Room Air 11/20/16 13:50 97 11/20/16 13:40 88 14 97 11/20/16 13:30 97 11/20/16 13:25 93 16 95 11/20/16 13:10 88 16 96 11/20/16 12:55 86 14 96 11/20/16 12:37 87 14 100 Nasal Cannula 2.0 11/20/16 12:35 14 100 Nasal Cannula 2.0 11/20/16 12:34 88 11/20/16 10:46 97.9 89 18 147/69 97 Nasal Cannula 97.9 11/20/16 10:17 18 Room Air 11/20/16 09:17 18 11/20/16 08:00 Room Air 11/20/16 07:10 88 18 152/84 98 Room Air 11/20/16 07:05 84 18 135/78 99 Room Air 11/20/16 07:00 97.9 82 18 120/75 97 Room Air 97.9 11/20/16 06:20 93 11/20/16 05:27 16 93 Room Air 11/20/16 03:09 98.1 68 20 113/54 93 Room Air 98.1 11/20/16 01:25 18 94 Room Air 11/19/16 23:00 98.1 60 20 107/47 94 Room Air 98.1 11/19/16 21:31 18 94 Room Air 11/19/16 21:31 81 112/56 11/19/16 19:00 81 112/56 11/19/16 19:00 78 105/55 11/19/16 19:00 98.1 74 20 99/48 94 Room Air 98.1 11/19/16 17:24 18 Room Air 11/19/16 15:00 98.1 65 18 117/60 96 Room Air 98.1 11/19/16 12:53 18 Room Air 11/19/16 11:53 18 Room Air 11/19/16 11:06 81 176/76 11/19/16 11:05 81 176/76 11/19/16 11:05 81 176/76 11/19/16 11:00 98.7 81 20 176/76 99 Room Air 98.7 11/19/16 08:15 18 Room Air 11/19/16 07:45 20 95 Room Air 11/19/16 07:00 98.1 71 18 142/72 94 Room Air 98.1 Laboratory Laboratory Laboratory Tests Test 11/19/16 16:54 11/19/16 21:07 11/20/16 07:34 11/20/16 10:10 Glucose (Fingerstick) 175mg/dL (70-99) 156mg/dL (70-99) 184mg/dL (70-99) 161mg/dL (70-99) Test 11/20/16 10:35 Free Thyroxine 1.03ng/dL (0.76-1.46) Free Triiodothyronine (T3) pg/mL 3.12pg/mL (2.18-3.98) Microbiology 11/18/16 Urine Culture - Final, Complete 11/18/16 Urine Culture Result 1 (JUDY) - Final, Complete Medication Medications Current Medications Atorvastatin Calcium (Lipitor) 40 mg QHS PO Last administered on 11/19/16t 21: 32; Start 11/19/16 at 21:00 Cyanocobalamin 1000 mcg 1,000 mcg DAILY PO ; Start 11/20/16 at 12:00 Diphenhydramine HCl (Benadryl) 25 mg 1X ONCE PO Last administered on 21:30; Start 11/19/16 at 21:00; Stop 11/19/16 at 21:23; Status DC Diphenhydramine HCl 25 mg 25 mg 1X PRN PRN IVP FILTER WASHER TO COURT ADMINISTRATOR Last administered on 11/20/16 12:35; Start 11/20/16 at 06:00; Stop 11/20/16 at 18:00 Famotidine (Pepcid) 20 mg 1X ONCE PO Last administered on 11/19/16 21:33; Start 11/19/16 at 21:00; Stop 11/19/16 at 21:23; Status DC Famotidine (Pepcid) 20 mg 1X PRN PRN IVP FILTER WASHER TO COURT ADMINISTRATOR Last administered on 11/20/16 12:35; Start 11/20/16 at 06:00; Stop 11/20/16 at 18:00 Fentanyl Citrate (Fentanyl 2ml Vial) 100 mcg 1X ONCE IV Last administered on 12:35; Start 11/20/16 at 12:30; Stop 11/20/16 at 12:31; Status DC Fentanyl Citrate (Fentanyl 2ml Vial) 100 mcg STK-MED ONCE .ROUTE ; Start at 11:27; Stop 11/20/16 at 11:28; Status DC Heparin Sodium (Porcine) (Heparin Sodium) 2,500 unit 1X ONCE IART Last administered on 11/20/16 12:36; Start 11/20/16 at 12:30; Stop 11/20/16 at 12:31 ; Status DC Heparin Sodium (Porcine) (Heparin Sodium) 10,000 unit STK-MED ONCE .ROUTE ; Start 11/20/16 at 11:27; Stop 11/20/16 at 11:28; Status DC Heparin Sodium/ Sodium Chloride 1,000 ml @ As Directed STK-MED ONCE .ROUTE ; Start 11/20/16 at 11:23; Stop 11/20/16 at 11:24; Status DC Heparin Sodium/ Sodium Chloride 1,000 unit 1X ONCE IART Last administered on 12:34; Start 11/20/16 at 12:30; Stop 11/20/16 at 12:31; Status DC Hydrocortisone Sodium Succinate (Solu-Cortef) 100 mg 1X PRN PRN IV FILTER WASHER TO COURT ADMINISTRATOR Last administered on 11/20/16 12:35; Start 11/20/16 at 06:00; Stop 06/28 at 18:00 Iodixanol (Visipaque 320) 100 ml 1X ONCE IART Last administered on 11/20/16 12:34; Start 11/20/16 at 12:30; Stop 11/20/16 at 12:31; Status DC Iodixanol (Visipaque 320) 100 ml STK-MED ONCE .ROUTE ; Start 11/20/16 at 11:23; Stop 11/20/16 at 11:24; Status DC Lidocaine HCl 2 ml 1X ONCE IJ Last administered on 11/20/16 12:34; Start 06/28 at 12:30; Stop 11/20/16 at 12:31; Status DC Lidocaine HCl 20 ml STK-MED ONCE .ROUTE ; Start 11/20/16 at 11:23; Stop at 11:24; Status DC Midazolam HCl (Versed) 2 mg 1X ONCE IV Last administered on 11/20/16 12:35; Start 11/20/16 at 12:30; Stop 11/20/16 at 12:31; Status DC Midazolam HCl (Versed) 2 mg STK-MED ONCE .ROUTE ; Start 11/20/16 at 11:27; Stop 11/20/16 at 11:28; Status DC Nitroglycerin (Nitroglycerin) 200 mcg 1X ONCE IART Last administered on 12:34; Start 11/20/16 at 12:30; Stop 11/20/16 at 12:31; Status DC Nitroglycerin (Nitroglycerin) 200 mcg STK-MED ONCE .ROUTE ; Start 11/20/16 at 11 :26; Stop 11/20/16 at 11:27; Status DC Ondansetron HCl (Zofran) 4 mg 1X ONCE IV Last administered on 11/20/16 13:24 ; Start 11/20/16 at 13:30; Stop 11/20/16 at 13:31; Status DC Ondansetron HCl (Zofran) 4 mg STK-MED ONCE .ROUTE ; Start 11/20/16 at 13:17; Stop 11/20/16 at 13:18; Status DC Oxycodone HCl (Roxicodone) 5 mg PRN Q4HRS PRN PO PAIN Last administered on 11/20 14:15; Start 11/19/16 at 17:15 Prednisone (Prednisone) 20 mg 1X ONCE PO Last administered on 11/19/16 21:30 ; Start 11/19/16 at 21:00; Stop 11/19/16 at 21:01; Status DC Prednisone (Prednisone) 20 mg 1X ONCE PO Last administered on 11/19/16 23:25 ; Start 11/19/16 at 23:30; Stop 11/19/16 at 23:31; Status DC Sodium Chloride (Iv Sodium Chloride 0.9% 1000ml Bag) 1,000 ml @ 75 mls/hr [id number] IV Last administered on 11/20/16 07:15; Start 11/20/16 at 07:00 Verapamil HCl (Verapamil) 2.5 mg 1X ONCE IART Last administered on 11/20/16 12:34; Start 11/20/16 at 12:30; Stop 11/20/16 at 12:31; Status DC Verapamil HCl (Verapamil) 5 mg STK-MED ONCE .ROUTE ; Start 11/20/16 at 11:27; Stop 11/20/16 at 11:28; Status DC Comment Review of Relevant I have reviewed the following items maldonado (where applicable) has been applied. RAVI NAGEL MD Nov 20, 2016 14:43
[2016-11-20] MEDS: SPIRONOLACTONE 25 MG TABLET PO SCH (15:24)
[2016-11-20] MEDS: LOSARTAN POTASSIUM 50 MG TABLET. PO SCH (15:24)
[2016-11-20] MEDS: HYDROCHLOROTHIAZIDE 25 MG TABLET PO SCH (15:24)
[2016-11-20] MEDS: CYANOCOBALAMIN (VITAMIN B-12) 1,000 MCG TABLET. PO SCH (15:24)
[2016-11-20] MEDS: LEVETIRACETAM 250 MG TABLET. PO SCH ×2 (15:25→21:00)
[2016-11-20] MEDS: ISOSORBIDE MONONITRATE ER 30 MG TAB.ER.24H PO SCH (15:25)
[2016-11-20] MEDS: METOPROLOL TART IMMED RELEASE 50 MG TABLET. PO SCH ×2 (15:25→21:03)
[2016-11-20] MEDS: MULTIVITAMIN with MINERAL TABLET. PO SCH (15:26)
[2016-11-20] MEDS: CLOPIDOGREL BISULFATE 75 MG TABLET PO SCH (15:26)
[2016-11-20] MEDS: PIOGLITAZONE 15 MG TABLET. PO SCH (15:26)
--- NOTE | 2016-11-20 19:59 | PDOC ---
Provider Note Provider Note Coronary arteriograms today showed a patent [place] to the LAD and a patent vein graft. [place] right coronary artery was patent with patent stents. 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 This would account for the small area of ischemia seen over the anterior wall. No intervention can be done about this. Her triglycerides and LAD cholesterol is elevated. She believes she may not have been taking the atorvastatin for the last few weeks. She was admonished not to be forgetful of the atorvastatin. Consider giving her the atorvastatin for about 4 weeks and repeating the lipid profile. If LDL is elevated add Zetia. The elevated triglycerides cannot be blamed on diabetes control because her hemoglobin A1c is 6.6. She has congenital hypertriglyceridemia. May then need to consider adding another drug to lower triglycerides. The shortness of breath she experiences when up on her feet is probably due to the pain in the ankle Okay with me to be discharged tomorrow.. AIYANA HARRINGTON MD Nov 20, 2016 19:59
[2016-11-20] MEDS: ZOLPIDEM 5 MG TABLET. PO PRN (21:00)
[2016-11-20] MEDS: ATORVASTATIN CALCIUM 10 MG TABLET. PO SCH (21:00)
[2016-11-20] MEDS: INSULIN DETEMIR 300 UNITS/3 ML INSULN.PEN. SQ SCH (21:07)
[2016-11-21] MEDS: OXYCODONE IR 5 MG TABLET. PO PRN ×2 (02:31→06:30)
[2016-11-21] MEDS: LORAZEPAM 1 MG TABLET. PO PRN (06:30)
[2016-11-21 06:51] LABS: GFR 54.7; POTASSIUM 4.2 mmol/L (3.5-5.1)
[2016-11-21 06:53] LABS: BASO % 1 % (0-3); EOS % 1 % (0-3); HEMATOCRIT 35.1 % (36.0-47.0); HEMOGLOBIN 11.9 g/dL (12.0-15.5); LYMPH % 32 % (24-48); MEAN CORPUSCULAR HEMOGLOBIN 32 pg (25-35); MEAN CORPUSCULAR HGB CONC 34 g/dL (31-37); MEAN CORPUSCULAR VOLUME 93 fL (79-100); MONO % 7 % (0-9); NEUT % 59 % (31-73); PLATELET COUNT 340 x10^3/uL (140-400); RED BLOOD COUNT 3.78 x10^6/uL (3.50-5.40); RED CELL DISTRIBUTION WIDTH 13.6 % (11.5-14.5); WHITE BLOOD COUNT 9.4 x10^3/uL (4.0-11.0)
[2016-11-21 07:16] VITALS: BP 136/58
[2016-11-21] MEDS: PANTOPRAZOLE 40 MG TABLET.DR. PO SCH (08:11)
[2016-11-21] MEDS: ONDANSETRON ODT 4 MG TAB.RAPDIS. PO SCH (08:12)
[2016-11-21] MEDS: CYANOCOBALAMIN (VITAMIN B-12) 1,000 MCG TABLET. PO SCH (08:18)
[2016-11-21] MEDS: HYDROCHLOROTHIAZIDE 25 MG TABLET PO SCH (08:19)
[2016-11-21] MEDS: CLOPIDOGREL BISULFATE 75 MG TABLET PO SCH (08:19)
[2016-11-21] MEDS: METOCLOPRAMIDE 10 MG TABLET. PO SCH (08:19)
[2016-11-21] MEDS: ASPIRIN CHEWABLE 81 MG TABLET. PO SCH (08:19)
[2016-11-21] MEDS: PIOGLITAZONE 15 MG TABLET. PO SCH (08:19)
[2016-11-21] MEDS: MULTIVITAMIN with MINERAL TABLET. PO SCH (08:19)
[2016-11-21] MEDS: LEVETIRACETAM 250 MG TABLET. PO SCH (08:20)
[2016-11-21] MEDS: METOPROLOL TART IMMED RELEASE 50 MG TABLET. PO SCH (08:21)
[2016-11-21] MEDS: ISOSORBIDE MONONITRATE ER 30 MG TAB.ER.24H PO SCH (08:21)
[2016-11-21] MEDS: LOSARTAN POTASSIUM 50 MG TABLET. PO SCH (08:22)
[2016-11-21] MEDS: SPIRONOLACTONE 25 MG TABLET PO SCH (08:22)
[2016-11-21] MEDS: FENTANYL 25MCG/HR PATCH. TD SCH (08:23)
[2016-11-21] MEDS: INSULIN ASPART 300 UNITS/3 ML INSULN.PEN SQ SCH (08:38)
--- NOTE | 2016-11-21 08:54 | PDOC ---
PROGRESS NOTES Subjective Subjective feels better. less dizziness. discussed results of cardiac cath. blood sugars high due to prednisone used before cardiac cath and blood sugars should start trending down in coming days. lab reviewed. Objective Objective Vital Signs Date Time Temp Pulse Resp B/P Pulse Ox O2 Delivery O2 Flow Rate FiO2 11/21/16 08:23 Room Air 11/21/16 08:22 78 136/58 11/21/16 06:30 93 2.0 11/20/16 23:00 96.9 20 96.9 Intake and Output 11/21/16 07:00 Intake Total 1675 ml Output Total 600 ml Balance 1075 ml IV Total 1675 ml Output Urine Total 600 ml # Voids 4 Physical Exam Abdomen: Soft Heart: Regular rate, Normal S1, Normal S2 Extremities: No edema General: Alert HEENT: Atraumatic Lungs: Clear to auscultation Neuro: Normal speech Psych/Mental Status: Mental status NL Skin: No rashes Assessment Assessment Problems Medical Problems:1. Dizziness. no orthostatic hypotension 2. Chest pain suspect due to angina 3. Coronary artery disease. LAD distal atresia not amenable to intervention 4. 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 5. Hypertension. 6. Hyperlipidemia. 7. Reflux esophagitis. (1) Dizziness Status: Acute Plan Plan of Care dismiss today Comment Review of Relevant I have reviewed the following items maldonado (where applicable) has been applied. Labs Laboratory Tests Test 11/19/16 10:59 11/19/16 16:54 11/19/16 21:07 11/20/16 07:34 Glucose (Fingerstick) 128mg/dL (70-99) 175mg/dL (70-99) 156mg/dL (70-99) 184mg/dL (70-99) Test 11/20/16 10:10 11/20/16 10:35 11/20/16 16:01 11/20/16 21:07 Glucose (Fingerstick) 161mg/dL (70-99) 244mg/dL (70-99) 185mg/dL (70-99) Free Thyroxine 1.03ng/dL (0.76-1.46) Free Triiodothyronine (T3) pg/mL 3.12pg/mL (2.18-3.98) Test 11/21/16 06:20 11/21/16 07:33 White Blood Count 9.4x10^3/uL (4.0-11.0) Red Blood Count 3.78x10^6/uL (3.50-5.40) Hemoglobin 11.9g/dL (12.0-15.5) Hematocrit 35.1% (36.0-47.0) Mean Corpuscular Volume 93fL (79-100) Mean Corpuscular Hemoglobin 32pg (25-35) Mean Corpuscular Hemoglobin Concent 34g/dL (31-37) Red Cell Distribution Width 13.6% (11.5-14.5) Platelet Count 340x10^3/uL (140-400) Neutrophils (%) (Auto) 59% (31-73) Lymphocytes (%) (Auto) 32% (24-48) Monocytes (%) (Auto) 7% (0-9) Eosinophils (%) (Auto) 1% (0-3) Basophils (%) (Auto) 1% (0-3) Neutrophils # (Auto) 5.5x10^3uL (1.8-7.7) Lymphocytes # (Auto) 3.0x10^3/uL (1.0-4.8) Monocytes # (Auto) 0.7x10^3/uL (0.0-1.1) Eosinophils # (Auto) 0.1x10^3/uL (0.0-0.7) Basophils # (Auto) 0.0x10^3/uL (0.0-0.2) Sodium Level 142mmol/L (136-145) Potassium Level 4.2mmol/L (3.5-5.1) Chloride Level 105mmol/L (98-107) Carbon Dioxide Level 27mmol/L (21-32) Anion Gap 10 (6-14) Blood Urea Nitrogen 25mg/dL (7-20) Creatinine 1.0mg/dL (0.6-1.0) Estimated GFR (Cockcroft-Gault) 54.7 Glucose Level 131mg/dL (70-99) Calcium Level 9.0mg/dL (8.5-10.1) Glucose (Fingerstick) 223mg/dL (70-99) Laboratory Tests Test 11/20/16 10:10 11/20/16 10:35 11/20/16 16:01 11/20/16 21:07 Glucose (Fingerstick) 161mg/dL (70-99) 244mg/dL (70-99) 185mg/dL (70-99) Free Thyroxine 1.03ng/dL (0.76-1.46) Free Triiodothyronine (T3) pg/mL 3.12pg/mL (2.18-3.98) Test 11/21/16 06:20 11/21/16 07:33 White Blood Count 9.4x10^3/uL (4.0-11.0) Red Blood Count 3.78x10^6/uL (3.50-5.40) Hemoglobin 11.9g/dL (12.0-15.5) Hematocrit 35.1% (36.0-47.0) Mean Corpuscular Volume 93fL (79-100) Mean Corpuscular Hemoglobin 32pg (25-35) Mean Corpuscular Hemoglobin Concent 34g/dL (31-37) Red Cell Distribution Width 13.6% (11.5-14.5) Platelet Count 340x10^3/uL (140-400) Neutrophils (%) (Auto) 59% (31-73) Lymphocytes (%) (Auto) 32% (24-48) Monocytes (%) (Auto) 7% (0-9) Eosinophils (%) (Auto) 1% (0-3) Basophils (%) (Auto) 1% (0-3) Neutrophils # (Auto) 5.5x10^3uL (1.8-7.7) Lymphocytes # (Auto) 3.0x10^3/uL (1.0-4.8) Monocytes # (Auto) 0.7x10^3/uL (0.0-1.1) Eosinophils # (Auto) 0.1x10^3/uL (0.0-0.7) Basophils # (Auto) 0.0x10^3/uL (0.0-0.2) Sodium Level 142mmol/L (136-145) Potassium Level 4.2mmol/L (3.5-5.1) Chloride Level 105mmol/L (98-107) Carbon Dioxide Level 27mmol/L (21-32) Anion Gap 10 (6-14) Blood Urea Nitrogen 25mg/dL (7-20) Creatinine 1.0mg/dL (0.6-1.0) Estimated GFR (Cockcroft-Gault) 54.7 Glucose Level 131mg/dL (70-99) Calcium Level 9.0mg/dL (8.5-10.1) Glucose (Fingerstick) 223mg/dL (70-99) Microbiology 11/18/16 Urine Culture - Final, Complete 11/18/16 Urine Culture Result 1 (JUDY) - Final, Complete Medications Current Medications Ondansetron HCl (Zofran) 4 mg PRN Q8HRS PRN IV NAUSEA/VOMITING Last administered on 11/19/16 01:05; Start 11/18/16 at 14:15; Stop 11/19/16 at 14:14 ; Status DC Fentanyl Citrate 50 mcg 50 mcg PRN Q2HR PRN IV PAIN Last administered on 11:00; Start 11/18/16 at 14:15; Stop 11/19/16 at 14:14; Status DC Sodium Chloride (Iv Sodium Chloride 0.9% 1000ml Bag) 1,000 ml @ 125 mls/hr Q8H IV ; Start 11/18/16 at 14:08; Stop 11/18/16 at 19:29; Status DC Acetaminophen (Tylenol) 650 mg PRN Q4HRS PRN PO FEVER; Start 11/18/16 at 14:15; Stop 11/18/16 at 15:42; Status DC Pioglitazone HCl (Actos) 45 mg DAILY PO Last administered on 11/21/16 08:19; Start 11/19/16 at 09:00 Acetaminophen (Tylenol) 650 mg PRN Q4HRS PRN PO MILD PAIN / TEMP; Start at 15:30 Al Hydroxide/Mg Hydroxide (Mylanta Plus Xs) 30 ml PRN Q2HR PRN PO HEARTBURN / GAS; Start 11/18/16 at 15:30 Aspirin (Dev Aspirin) 81 mg DAILYWBKFT PO ; Start 11/19/16 at 08:00; Stop 05/28 at 10:54; Status DC Atorvastatin Calcium (Lipitor) 10 mg QHS PO Last administered on 11/18/16 21:20 ; Start 11/18/16 at 21:00; Stop 11/19/16 at 08:33; Status DC Colestipol HCl (Colestid) 1 gm BID@10,22 PO ; Start 11/18/16 at 22:00 Fentanyl (Duragesic 25mcg/ Hr Patch) 1 patch Q3DAYS TD Last administered on 08:23; Start 11/18/16 at 18:00 Hydrochlorothiazide (Hydrodiuril) 25 mg DAILY PO Last administered on 08:19; Start 11/19/16 at 09:00 Isosorbide Mononitrate (Imdur) 30 mg DAILY PO Last administered on 11/21/16 08 :21; Start 11/19/16 at 09:00 Levetiracetam (Keppra) 750 mg BID PO Last administered on 11/21/16 08:20; Start 11/18/16 at 21:00 Insulin Detemir (Levemir) 4 units QHS SQ Last administered on 11/20/16 21:07; Start 11/18/16 at 21:00 Insulin Aspart (Novolog) 4 units TIDAC SQ Last administered on 11/21/16 08:38 ; Start 11/19/16 at 07:30 Lorazepam (Ativan) 1 mg PRN TID PRN PO ANXIETY / AGITATION Last administered on 11/21/16 06:30; Start 11/18/16 at 15:30 Metformin HCl (Glucophage) 500 mg BIDWMEALS PO ; Start 11/18/16 at 17:00; Stop at 09:27; Status DC Metoprolol Tartrate (Lopressor) 50 mg BID PO Last administered on 11/21/16 08: 21; Start 11/18/16 at 21:00 Multivitamins (Thera M Plus) 1 tab DAILY PO Last administered on 11/21/16 08: 19; Start 11/19/16 at 09:00 Nitroglycerin (Nitrostat) 0.4 mg PRN Q5MIN PRN SL CHEST PAIN; Start 11/18/16 at 15:30 Oxycodone HCl (Roxicodone) 5 mg PRN BID PRN PO MODERATE PAIN Last administered on 11/19/16 11:53; Start 11/18/16 at 15:30; Stop 11/19/16 at 18:56; Status DC Clopidogrel Bisulfate (Plavix) 75 mg DAILYWBKFT PO Last administered on 08:19; Start 11/19/16 at 08:00 Pantoprazole Sodium (Protonix) 40 mg BIDAC PO Last administered on 11/21/16 08 :11; Start 11/18/16 at 18:00 Spironolactone (Aldactone) 25 mg DAILY PO Last administered on 11/21/16 08:22 ; Start 11/19/16 at 09:00 Losartan Potassium (Cozaar) 100 mg DAILY PO Last administered on 11/21/16 08: 22; Start 11/19/16 at 09:00 Cyanocobalamin (Vitamin B-12) 1,000 mcg DAILY PO Last administered on 11:03; Start 11/19/16 at 09:00; Stop 11/20/16 at 10:13; Status DC Ondansetron HCl (Zofran Odt) 4 mg TIDAC PO Last administered on 11/21/16 08:12 ; Start 11/18/16 at 16:30 Zolpidem Tartrate (Ambien) 5 mg PRN QHS PRN PO INSOMNIA Last administered on 21:00; Start 11/18/16 at 15:30 Metoclopramide HCl (Reglan) 10 mg BIDBFRMEAL PO Last administered on 11/21/16 08:19; Start 11/18/16 at 16:30 Lidocaine HCl 1 ml STK-MED ONCE .ROUTE ; Start 11/18/16 at 20:20; Stop 11/18/16 at 20:21; Status DC Regadenoson (Lexiscan) 0.4 mg 1X ONCE IV Last administered on 11/19/16 10:44 ; Start 11/19/16 at 08:15; Stop 11/19/16 at 08:16; Status DC Atorvastatin Calcium (Lipitor) 40 mg QHS PO Last administered on 11/20/16 21: 00; Start 11/19/16 at 21:00 Aspirin (Children'S Aspirin) 81 mg DAILYWBKFT PO Last administered on 08:19; Start 11/19/16 at 10:54 Oxycodone HCl (Roxicodone) 5 mg PRN Q4HRS PRN PO PAIN Last administered on 11/21 06:30; Start 11/19/16 at 17:15 Prednisone (Prednisone) 20 mg 1X ONCE PO Last administered on 11/19/16 21:30 ; Start 11/19/16 at 21:00; Stop 11/19/16 at 21:01; Status DC Prednisone (Prednisone) 20 mg 1X ONCE PO Last administered on 11/19/16 23:25 ; Start 11/19/16 at 23:30; Stop 11/19/16 at 23:31; Status DC Famotidine (Pepcid) 20 mg 1X ONCE PO Last administered on 11/19/16 21:33; Start 11/19/16 at 21:00; Stop 11/19/16 at 21:23; Status DC Diphenhydramine HCl (Benadryl) 25 mg 1X ONCE PO Last administered on 21:30; Start 11/19/16 at 21:00; Stop 11/19/16 at 21:23; Status DC Hydrocortisone Sodium Succinate (Solu-Cortef) 100 mg 1X PRN PRN IV SKIP LOAD DRIVER TO BUSINESS ANALYTICS MANAGER Last administered on 11/20/16 12:35; Start 11/20/16 at 06:00; Stop 06/28 at 18:00; Status DC Famotidine (Pepcid) 20 mg 1X PRN PRN IVP SKIP LOAD DRIVER TO BUSINESS ANALYTICS MANAGER Last administered on 11/20/16 12:35; Start 11/20/16 at 06:00; Stop 11/20/16 at 18:00; Status DC Diphenhydramine HCl 25 mg 25 mg 1X PRN PRN IVP SKIP LOAD DRIVER TO BUSINESS ANALYTICS MANAGER Last administered on 11/20/16 12:35; Start 11/20/16 at 06:00; Stop 11/20/16 at 18:00 ; Status DC Sodium Chloride (Iv Sodium Chloride 0.9% 1000ml Bag) 1,000 ml @ 75 mls/hr [id number] IV Last administered on 11/20/16 07:15; Start 11/20/16 at 07:00; Stop 11/20/16 at 15:15; Status DC Cyanocobalamin 1000 mcg 1,000 mcg DAILY PO Last administered on 11/21/16 08:18 ; Start 11/20/16 at 12:00 Heparin Sodium/ Sodium Chloride 1,000 ml @ As Directed STK-MED ONCE .ROUTE ; Start 11/20/16 at 11:23; Stop 11/20/16 at 11:24; Status DC Lidocaine HCl 20 ml STK-MED ONCE .ROUTE ; Start 11/20/16 at 11:23; Stop at 11:24; Status DC Iodixanol (Visipaque 320) 100 ml STK-MED ONCE .ROUTE ; Start 11/20/16 at 11:23; Stop 11/20/16 at 11:24; Status DC Nitroglycerin (Nitroglycerin) 200 mcg STK-MED ONCE .ROUTE ; Start 11/20/16 at 11 :26; Stop 11/20/16 at 11:27; Status DC Verapamil HCl (Verapamil) 5 mg STK-MED ONCE .ROUTE ; Start 11/20/16 at 11:27; Stop 11/20/16 at 11:28; Status DC Heparin Sodium (Porcine) (Heparin Sodium) 10,000 unit STK-MED ONCE .ROUTE ; Start 11/20/16 at 11:27; Stop 11/20/16 at 11:28; Status DC Fentanyl Citrate (Fentanyl 2ml Vial) 100 mcg STK-MED ONCE .ROUTE ; Start at 11:27; Stop 11/20/16 at 11:28; Status DC Midazolam HCl (Versed) 2 mg STK-MED ONCE .ROUTE ; Start 11/20/16 at 11:27; Stop 11/20/16 at 11:28; Status DC Nitroglycerin (Nitroglycerin) 200 mcg 1X ONCE IART Last administered on 12:34; Start 11/20/16 at 12:30; Stop 11/20/16 at 12:31; Status DC Verapamil HCl (Verapamil) 2.5 mg 1X ONCE IART Last administered on 11/20/16 12:34; Start 11/20/16 at 12:30; Stop 11/20/16 at 12:31; Status DC Heparin Sodium (Porcine) (Heparin Sodium) 2,500 unit 1X ONCE IART Last administered on 11/20/16 12:36; Start 11/20/16 at 12:30; Stop 11/20/16 at 12:31 ; Status DC Heparin Sodium/ Sodium Chloride 1,000 unit 1X ONCE IART Last administered on 12:34; Start 11/20/16 at 12:30; Stop 11/20/16 at 12:31; Status DC Midazolam HCl (Versed) 2 mg 1X ONCE IV Last administered on 11/20/16 12:35; Start 11/20/16 at 12:30; Stop 11/20/16 at 12:31; Status DC Fentanyl Citrate (Fentanyl 2ml Vial) 100 mcg 1X ONCE IV Last administered on 12:35; Start 11/20/16 at 12:30; Stop 11/20/16 at 12:31; Status DC Iodixanol (Visipaque 320) 100 ml 1X ONCE IART Last administered on 11/20/16 12:34; Start 11/20/16 at 12:30; Stop 11/20/16 at 12:31; Status DC Lidocaine HCl 2 ml 1X ONCE IJ Last administered on 11/20/16 12:34; Start 06/28 at 12:30; Stop 11/20/16 at 12:31; Status DC Ondansetron HCl (Zofran) 4 mg STK-MED ONCE .ROUTE ; Start 11/20/16 at 13:17; Stop 11/20/16 at 13:18; Status DC Ondansetron HCl 4 mg 4 mg 1X ONCE IV Last administered on 11/20/16 13:24; Start 11/20/16 at 13:30; Stop 11/20/16 at 13:31; Status DC Sodium Chloride (Iv Sodium Chloride 0.9% 1000ml Bag) 1,000 ml @ 75 mls/hr [id number] IV Last administered on 11/20/16 16:41; Start 11/20/16 at 15:14; Stop 11/20/16 at 19:00; Status DC Active Scripts Active Percocet 5-325 Mg Tablet (Oxycodone/Acetaminophen) 1 Each Tablet 1 Tab PO PRN Q6HRS PRN Pantoprazole Sodium 40 Mg Tablet.dr 40 Mg PO BIDAC Metoclopramide Hcl 10 Mg Tablet 10 Mg PO QIDACHS Levemir Flextouch (Insulin Detemir) 100 Unit/1 Ml Insuln.pen 4 Units SQ QHS Oxycodone-Acetaminophen 10-325 (Oxycodone Hcl/Acetaminophen) 1 Each Tablet 1 Tab PO PRN QID PRN Ondansetron Odt (Ondansetron) 4 Mg Tab.rapdis 4 Mg PO TIDAC Novolog Flexpen (Insulin Aspart) 100 Unit/1 Ml Insuln.pen 4 Units SQ TIDAC FENTANYL 25mcg/hr (Fentanyl) 1 Each Patch.td72 1 Patch TD Q3DAYS Amlodipine Besylate 10 Mg Tablet 10 Mg PO DAILY Reported Valsartan 320 Mg Tablet 320 Mg PO DAILY Colestipol Hcl 1 Gm Tablet 1 Gm PO BID Metoprolol Tartrate 50 Mg Tablet 50 Mg PO BID Buspirone Hcl 10 Mg Tablet 10 Mg PO TID Ambien (Zolpidem Tartrate) 5 Mg Tablet 5 Mg PO HS Lorazepam 1 Mg Tablet 1 Mg PO TID Clopidogrel (Clopidogrel Bisulfate) 75 Mg Tablet 75 Mg PO DAILY Atorvastatin Calcium 10 Mg Tablet 10 Mg PO HS Lamictal (Lamotrigine) 150 Mg Tablet 200 Mg PO DAILY Keppra (Levetiracetam) 750 Mg Tablet 750 Mg PO BID Metformin Hcl 1,000 Mg Tablet 1,000 Mg PO BID Actos (Pioglitazone Hcl) 45 Mg Tablet 15 Mg PO DAILY Vitals/I & O Vital Sign - Last 24 Hours 11/20/16 11/20/16 11/20/16 11/20/16 09:17 10:46 12:34 12:35 Temp 97.9 97.9 Pulse 89 88 Resp 18 18 14 B/P 147/69 Pulse Ox 97 100 O2 Delivery Nasal Cannula Nasal Cannula O2 Flow Rate 2.0 11/20/16 11/20/16 11/20/16 11/20/16 12:37 12:55 13:10 13:25 Pulse 87 86 88 93 Resp 16 Pulse Ox 100 96 96 95 O2 Delivery Nasal Cannula O2 Flow Rate 2.0 11/20/16 11/20/16 11/20/16 11/20/16 13:30 13:40 13:50 14:02 Pulse 88 92 Resp 14 13 Pulse Ox 97 97 97 97 O2 Delivery Room Air 11/20/16 11/20/16 11/20/16 11/20/16 14:12 14:15 14:22 14:32 Pulse 85 88 88 Resp 17 Pulse Ox 97 97 97 97 O2 Delivery Room Air Room Air Room Air Room Air 4/11/11/20/16 11/20/16 11/20/16 15:00 15:15 15:15 15:24 Temp 96.6 96.6 Pulse 96 95 95 Resp 18 18 18 B/P 164/86 152/87 152/87 Pulse Ox 99 98 O2 Delivery Room Air Room Air 11/20/16 11/20/16 11/20/16 11/20/16 15:25 15:25 15:30 15:45 Pulse 95 95 95 93 Resp 18 18 B/P 152/87 152/87 141/75 133/63 Pulse Ox 96 95 O2 Delivery Room Air Room Air 11/20/16 11/20/16 11/20/16 11/20/16 16:15 16:45 18:27 19:00 Temp 97.5 97.5 Pulse 83 84 75 Resp 18 18 18 20 B/P 140/66 130/68 108/46 Pulse Ox 95 95 96 O2 Delivery Room Air Room Air Room Air Room Air 11/20/16 11/20/16 11/20/16 11/20/16 20:00 21:03 22:34 23:00 Temp 96.9 96.9 Pulse 79 68 Resp 20 B/P 117/60 117/47 Pulse Ox 95 93 O2 Delivery Room Air Room Air Room Air O2 Flow Rate 2.0 2.0 11/21/16 11/21/16 11/21/16 11/21/16 02:31 03:31 06:30 08:21 Pulse 78 B/P 136/58 Pulse Ox 93 93 93 O2 Delivery Room Air Room Air Room Air O2 Flow Rate 2.0 2.0 2.0 11/21/16 11/21/16 11/21/16 08:21 08:22 08:23 Pulse 78 78 B/P 136/58 136/58 O2 Delivery Room Air Intake and Output 11/20/16 11/20/16 11/21/16 15:00 23:00 07:00 Intake Total 1000 ml 675 ml Output Total 450 ml 150 ml Balance -450 ml 850 ml 675 ml DENICE IZAGUIRRE MD Nov 21, 2016 08:54
[2016-11-21] MEDS ORDERED: OXYCODONE IR 5 MG TABLET. PO PRN (09:00)
--- NOTE | 2016-11-21 09:00 | DISCH ---
DISCHARGE INSTRUCTIONS Condition on Discharge Condition on Discharge: Stable Activity After Discharge Activity Instructions for Disc: Resume previous activity Diet after Discharge Diet after Discharge: Cardiac, Diabetic No Calorie Level Contacting the DRMiguel after DC Call your doctor for: If your condition worsens Follow-Up Follow up with: dr. izaguirre next week DENICE IZAGUIRRE MD Nov 21, 2016 09:00
[2016-11-21] MEDS ORDERED: PIOGLITAZONE HCL PO (09:06)
[2016-11-21] MEDS ORDERED: LORA1TAB PO (09:06)
[2016-11-21] MEDS ORDERED: ATOR10TA60 PO (09:06)
--- NOTE | 2016-11-21 09:11 | PDOC ---
Provider Note Provider Note discharge summary dictated # [id number] DENICE IZAGUIRRE MD Nov 21, 2016 09:11
--- NOTE | 2016-11-21 09:45 | DS ---
DATE OF DISCHARGE: 11/21/2016 PROCEDURE: Cardiac catheterization. CONSULTANTS: Dr. Quigley, Dr. Allen and Dr. Monsivais. FINAL DIAGNOSES: 1. Chest pain, most likely secondary to angina pectoris. 2. Coronary artery disease. 3. Dizziness. 4. Diabetes mellitus type 2 with diabetic gastroparesis and microalbuminuria. 5. Hypertension. 6. Hyperlipidemia. 7. Reflux esophagitis. HOSPITAL COURSE: The patient is a 71-year-old white female with a history of coronary artery disease, diabetes mellitus type 2, diabetic gastroparesis, microalbuminuria, hypertension, hyperlipidemia, admitted to [facility] at the Emergency Room with a 4-day history of dizziness and some intermittent chest discomfort. She had some nausea and shortness of breath associated with some chest discomfort. Her EKG did not show any acute changes. Cardiac enzymes were negative. She was seen by Dr. Quigley in consultation, underwent a stress test and it showed some evidence of anterior wall ischemia and so she underwent a cardiac catheterization after receiving prednisone and Benadryl preprocedure and it showed that her grafts were patent; however, she did have some left anterior descending artery, which showed distal atresia, which was not amenable to intervention, treated with medications. Her metoprolol and Imdur were continued. Her blood sugars were running a little high with a hemoglobin A1c of 6.6 due to the prednisone that she received prior to her cardiac catheterization. This has improved, seen by Dr. Monsivais in consultation and she had a CAT scan of the head and carotid Doppler, which did not show any significant findings. Her dizziness improved. Her atorvastatin was increased to 40 mg at bedtime and her amlodipine was discontinued due to her dizziness and she will be dismissed to home on aspirin 81 mg every day, atorvastatin 40 mg at bedtime, Plavix 75 mg every day, Colestid 1 gram b.i.d., vitamin B12 1000 mcg p.o. daily, fentanyl 25 mcg patch every 72 hours, ten patches, no refill; hydrochlorothiazide 25 mg every day, NovoLog insulin 4 units before meals t.i.d. and Levemir insulin 4 units at bedtime, Imdur 30 mg every day, Keppra 750 mg b.i.d., lorazepam 1 mg t.i.d. p.r.n., valsartan 320 mg every day, metoclopramide 10 mg b.i.d., metoprolol tartrate 50 mg b.i.d., multivitamin with minerals once a day, nitroglycerin 0.4 mg sublingual p.r.n., Zofran before meals t.i.d., oxycodone 5 mg t.i.d. p.r.n. 90 tablets, no refill; Protonix 40 mg b.i.d., Actos 45 mg every day, spironolactone 25 mg every day, Ambien 5 mg at bedtime p.r.n. and she will follow up with the office with Dr. Masters next week. Her metformin was discontinued prior to admission due to diarrhea and once again, she is off the amlodipine. DENICE MASTERS MD DR: MIKAL/mandy JOB#: [id number] / [id number]
[2016-11-21] MEDS: COLESTIPOL HCL 1 GM TABLET PO SCH (10:00)
[2016-11-21 10:20] VITALS: BP 126/47
== END 2016-11-21 10:35 | disposition home or self-care (01) | DRG 287 ==
LOC: ER 12:15 → ED HOLD 14:20 → 5 NORTH 17:33
PROVIDERS: ADMIT Internal Medicine; ATTEND Internal Medicine
PROC: 4A023N7 Measurement of Cardiac Sampling and Pressure, Left Heart, Percutaneous Approach (ICD-10-PCS; principal; 2016-11-20)
PROC: B2111ZZ Fluoroscopy of Multiple Coronary Arteries using Low Osmolar Contrast (ICD-10-PCS; 2016-11-20)
PROC: B2121ZZ Fluoroscopy of Single Coronary Artery Bypass Graft using Low Osmolar Contrast (ICD-10-PCS; 2016-11-20)
PROC: B2181ZZ Fluoroscopy of Left Internal Mammary Bypass Graft using Low Osmolar Contrast (ICD-10-PCS; 2016-11-20)
PROC: 02HV33Z Insertion of Infusion Device into Superior Vena Cava, Percutaneous Approach (ICD-10-PCS; 2016-11-20)
DX: I25.119 Atherosclerotic heart disease of native coronary artery with unspecified angina pectoris (principal); K31.84 Gastroparesis; E78.5 Hyperlipidemia, unspecified; E78.1 Pure hyperglyceridemia; E78.00 Pure hypercholesterolemia, unspecified; E11.43 Type 2 diabetes mellitus with diabetic autonomic (poly)neuropathy; G40.909 Epilepsy, unspecified, not intractable, without status epilepticus; I10 Essential (primary) hypertension; K21.0 Gastro-esophageal reflux disease with esophagitis; K58.0 Irritable bowel syndrome with diarrhea; Z96.652 Presence of left artificial knee joint; F31.9 Bipolar disorder, unspecified; K57.90 Diverticulosis of intestine, part unspecified, without perforation or abscess without bleeding; Z79.02 Long term (current) use of antithrombotics/antiplatelets; Z79.4 Long term (current) use of insulin; Z79.82 Long term (current) use of aspirin; Z79.899 Other long term (current) drug therapy; Z87.442 Personal history of urinary calculi; Z88.0 Allergy status to penicillin; Z90.49 Acquired absence of other specified parts of digestive tract; Z91.041 Radiographic dye allergy status; Z95.1 Presence of aortocoronary bypass graft; Z95.5 Presence of coronary angioplasty implant and graft; Z88.8 Allergy status to other drugs, medicaments and biological substances; Z88.1 Allergy status to other antibiotic agents; Z90.710 Acquired absence of both cervix and uterus
CPT/HCPCS: 36415; 36569; 70450; 71010; 78452; 80048; 80053; 80061; 81001; 82550; 82607; 82947; 83036; 83735; 83880; 84439; 84443; 84481; 84484; 85027; 87086; 93005; 93017; 93459; 93880; 96374; 96375; 96376; A9500; C1769; C1892; J1200; J1720; J1815; J2250; J2405; J2785; J3010; J3490; J7030; J7512; J8597; Q0162; Q0163; S0028; 99285-25; J2001

== ENCOUNTER 2017-01-07 12:16 | Emergency (ER) | payer MEDICARE, OTHER ==
[~2017-01-07 12:16] MED LIST changes: +METF-620 PO; -METF10002 PO; +METH-364 PO; -METH10TA6 PO; +PIOGLITAZONE HCL PO
[2017-01-07 12:25] VITALS: BP 136/44
--- NOTE | 2017-01-07 13:58 | PHYS DOC ---
Past Medical History Past Medical History: Bipolar, Diabetes-Type II, Heart Disease, Hypertension, IBS, Seizure, Other Additional Past Medical Histor: Gastroparesis Past Surgical History: Appendectomy, Cholecystectomy, Hysterectomy, Other Additional Past Surgical Histo: Cardiac stents x 5, CABG, Fused R)ankle surgery Alcohol Use: None Drug Use: None Adult General Chief Complaint Chief Complaint: RIB PAIN HPI HPI Patient is a 71 year old female who presents with right lower rib pain for the past 10 days. Patient states she hit her right lower rib on the top of the washing machine. Patient has followed up with her PCP who took x-rays and said nothing was broken however she's having increasing pain. Patient denies any other traumatic injuries and has no other complaints. Pertinent exam findings: Positive tender to palpation over the right lower ribs Lungs were clear to auscultation bilaterally Heart was regular rate and rhythm without murmurs ED course: Patient was seen and evaluated emergency room and a CT scan of the chest without contrast was ordered to further evaluate Went back to reevaluate the patient and the patient had eloped prior to getting the CT scan MDM: After reviewing the chart, CC/HPI/PMH, physical exam I wanted to obtain a CT scan of the chest to rule out a potential rib fracture or pneumothorax however the patient left prior to obtaining the CT scan and walked out eloping prior to me providing the patient alternative treatments. Patient was not signed out AGAINST MEDICAL ADVICE. Review of Systems Review of Systems Constitutional: Denies fever or chills [] Eyes: Denies change in visual acuity, redness, or eye pain [] HENT: Denies nasal congestion or sore throat [] Respiratory: Denies cough or shortness of breath [] Cardiovascular: Right rib pain GI: Denies abdominal pain, nausea, vomiting, bloody stools or diarrhea [] : Denies dysuria or hematuria [] Musculoskeletal: Denies back pain or joint pain [] Integument: Denies rash or skin lesions [] Allergies Allergies Allergies Coded Allergies Type Severity Reaction Last Updated Verified Iodinated Contrast Media - Oral and Allergy Severe Anaphylaxis 05/27/16 Yes Penicillins Allergy Intermediate 05/27/16 Yes atenolol Allergy Intermediate 05/27/16 Yes erythromycin base Allergy Intermediate 05/27/16 Yes iodine Allergy Intermediate 05/27/16 Yes levofloxacin Allergy Intermediate 05/27/16 Yes pregabalin Allergy Intermediate 05/27/16 Yes Physical Exam Physical Exam Constitutional: Well developed, well nourished, no acute distress, non-toxic appearance. [] HENT: Normocephalic, atraumatic, bilateral external ears normal, oropharynx moist, no oral exudates, nose normal. [] Eyes: PERRLA, EOMI, conjunctiva normal, no discharge. [] Neck: Normal range of motion, no tenderness, supple, no stridor. [] Cardiovascular:Heart rate regular rhythm, no murmur positive tender to palpation over the right lower ribs Lungs & Thorax: Bilateral breath sounds clear to auscultation [] Abdomen: Bowel sounds normal, soft, no tenderness, no masses, no pulsatile masses. [] Skin: Warm, dry, no erythema, no rash. [] Back: No tenderness, no CVA tenderness. [] Extremities: No tenderness, no cyanosis, no clubbing, ROM intact, no edema. [] Neurologic: Alert and oriented X 3, normal motor function, normal sensory function, no focal deficits noted. [] Psychologic: Affect normal, judgement normal, mood normal. [] Current Patient Data Vital Signs Vital Signs Date Time Temp Pulse Resp B/P (MAP) Pulse Ox O2 Delivery O2 Flow Rate FiO2 01/07/17 12:25 69 18 136/44 (74) 99 EKG EKG [] Radiology/Procedures Radiology/Procedures [] Course & Med Decision Making Course & Med Decision Making Pertinent Labs and Imaging studies reviewed. (See chart for details) [] Dragon Disclaimer Dragon Disclaimer This electronic medical record was generated, in whole or in part, using a voice recognition dictation system. Departure Departure Impression: Primary Impression: At risk for elopement from healthcare setting Additional Impression: Rib pain on right side Disposition: 07 AGAINST MEDICAL ADVICE Condition: LEFT WITHOUT BEING SEEN Referrals: DENICE IZAGUIRRE MD (PCP) Additional Instructions: Patient eloped prior to me discussing alternative treatments with the patient Problem Qualifiers ALEXIA BENITEZ DO January 07, 2017 13:58
== END 2017-01-07 14:00 | disposition left against medical advice (07) ==
LOC: ER 12:16
DX: R07.81 Pleurodynia (principal); E11.43 Type 2 diabetes mellitus with diabetic autonomic (poly)neuropathy; K31.84 Gastroparesis; K58.9 Irritable bowel syndrome, unspecified; Z95.1 Presence of aortocoronary bypass graft; Z95.5 Presence of coronary angioplasty implant and graft; I11.9 Hypertensive heart disease without heart failure; Z90.49 Acquired absence of other specified parts of digestive tract; Z90.710 Acquired absence of both cervix and uterus; Z88.0 Allergy status to penicillin; Z88.1 Allergy status to other antibiotic agents; Z88.8 Allergy status to other drugs, medicaments and biological substances; Z91.041 Radiographic dye allergy status
CPT/HCPCS: 99283

== ENCOUNTER 2017-01-09 08:38 | Emergency (ER) | payer MEDICARE, OTHER ==
[~2017-01-09] VITALS: Ht 147.3 cm; Wt 71.7 kg
--- NOTE | 2017-01-09 08:51 | PHYS DOC ---
Past Medical History Past Medical History: Bipolar, Diabetes-Type II, Heart Disease, Hypertension, IBS, Seizure, Other Additional Past Medical Histor: Gastroparesis Past Surgical History: Appendectomy, Cholecystectomy, Hysterectomy, Other Additional Past Surgical Histo: Cardiac stents x 5, CABG, Fused R)ankle surgery Alcohol Use: None Drug Use: None Adult General Chief Complaint Chief Complaint: CHEST WALL PAIN [facility] HPI Patient is a 71 year old female who presents with chest wall pain. She states approximately 10 days ago she was reaching into her washing machine which is way too tall for her and she hit the right side of her chest on the washer and his been having pain ever since. She was actually seen 2 days ago and left during evaluation because it was "too chaotic here". She states that she ran out of her fentanyl patches in her 5 mg oxycodone 3 days ago and this is made her pain worse. She is post see her primary care physician Dr. Masters in 2 days to get refills. She states her pain is constant in its made worse with twisting and turning she states that she can't sleep at night secondary to pain and discomfort. The pain is nonradiating., Just located on the right lateral chest wall. She states denies any nausea vomiting, abdominal pain. Review of Systems Review of Systems Constitutional: Denies fever or chills [] Eyes: Denies change in visual acuity, redness, or eye pain [] HENT: Denies nasal congestion or sore throat [] Respiratory: Denies cough or shortness of breath [] Cardiovascular: No additional information not addressed in HPI [] GI: Denies abdominal pain, nausea, vomiting, bloody stools or diarrhea [] : Denies dysuria or hematuria [] Musculoskeletal: Denies back pain or joint pain [] Integument: Denies rash or skin lesions [] Neurologic: Denies headache, focal weakness or sensory changes [] Endocrine: Denies polyuria or polydipsia [] Current Medications Current Medications Current Medications Medications (Trade) Dose Ordered Sig/Melanie Start Time Stop Time Status Last Admin Dose Admin Lidocaine/Sodium Bicarbonate (Buffered Lidocaine 1%) 20 ml 1X ONCE 01/09/17 09:45 01/09/17 09:46 DC 01/09/17 09:51 20 ML Morphine Sulfate 4 mg 1X ONCE 01/09/17 09:30 01/09/17 09:32 DC 01/09/17 09:56 4 MG Ondansetron HCl (Zofran Odt) 4 mg 1X ONCE 01/09/17 09:30 01/09/17 09:32 DC 01/09/17 09:56 4 MG Ondansetron HCl (Zofran) 4 mg 1X ONCE 01/09/17 09:15 01/09/17 09:16 Cancel Allergies Allergies Allergies Coded Allergies Type Severity Reaction Last Updated Verified Iodinated Contrast Media - Oral and Allergy Severe Anaphylaxis 05/27/16 Yes Penicillins Allergy Intermediate 05/27/16 Yes atenolol Allergy Intermediate 05/27/16 Yes erythromycin base Allergy Intermediate 05/27/16 Yes iodine Allergy Intermediate 05/27/16 Yes levofloxacin Allergy Intermediate 05/27/16 Yes pregabalin Allergy Intermediate 05/27/16 Yes Physical Exam Physical Exam Constitutional: Well developed, well nourished, no acute distress, non-toxic appearance. [] HENT: Normocephalic, atraumatic, bilateral external ears normal, oropharynx moist, no oral exudates, nose normal. [] Eyes: PERRLA, EOMI, conjunctiva normal, no discharge. [] Neck: Normal range of motion, no tenderness, supple, no stridor. [] Cardiovascular:Heart rate regular rhythm, no murmur [] Lungs & Thorax: Bilateral breath sounds clear to auscultation, tender palpation over the right anterior/lateral chest wall. No obvious deformities or ecchymosis seen. Abdomen: Bowel sounds normal, soft, no tenderness, no masses, no pulsatile masses. [] Skin: Warm, dry, no erythema, no rash. [] Back: No tenderness, no CVA tenderness. [] Extremities: No tenderness, no cyanosis, no clubbing, ROM intact, no edema. [] Neurologic: Alert and oriented X 3, normal motor function, normal sensory function, no focal deficits noted. [] Psychologic: Affect normal, judgement normal, mood normal. [] Current Patient Data Vital Signs Vital Signs Date Time Temp Pulse Resp B/P (MAP) Pulse Ox O2 Delivery O2 Flow Rate FiO2 01/09/17 11:26 74 20 189/73 (111) 100 Room Air 01/09/17 08:58 98.3 98.3 Lab Values Laboratory Tests Test 01/09/17 09:20 Urine Collection Type Unknown Urine Color Yellow Urine Clarity Clear Urine pH 6.5 Urine Specific [place] 1.010 Urine Protein Negative mg/dL (NEG-TRACE) Urine Glucose (UA) 500 mg/dL (NEG) Urine Ketones (Stick) Negative mg/dL (NEG) Urine Blood Negative (NEG) Urine Nitrite Negative (NEG) Urine Bilirubin Negative (NEG) Urine Urobilinogen Dipstick 0.2 mg/dL (0.2 mg/dL) Urine Leukocyte Esterase Negative (NEG) Urine RBC 1-2 /HPF (0-2) Urine WBC 0 /HPF (0-4) Urine Squamous Epithelial Cells Few /LPF Urine Bacteria 0 /HPF (0-FEW) Urine Opiates Screen Neg (NEG) Urine Methadone Screen Neg (NEG) Urine Barbiturates Neg (NEG) Urine Phencyclidine Screen Neg (NEG) Urine Amphetamine/Methamphetamine Neg (NEG) Urine Benzodiazepines Screen Neg (NEG) Urine Cocaine Screen Neg (NEG) Urine Cannabinoids Screen Neg (NEG) Urine Ethyl Alcohol Neg (NEG) EKG EKG EKG shows sinus rhythm without any ST elevations, T-wave inversions noted in aVL , left axis deviation, incomplete right bundle branch morphology noted, QTC 433 ms, at 849, as interpreted by me. Radiology/Procedures Radiology/Procedures [facility] [address] [place], [place] [id number] IMAGING REPORT Signed PATIENT: ORLIN ROJAS ACCOUNT: [id number] : 1945 LOCATION: ER AGE: 71 SEX: F EXAM STATUS: PRE ER ORD. PHYSICIAN: AVIS FALL MD REASON: chest pain PROCEDURE: PORTABLE CHEST 1V Exam: AP portable chest. History: Chest pain under the right breast after injury 3 weeks ago. Comparison: 11/19/2016. Findings: The heart and mediastinal structures are within normal limits for size. Lungs are without infiltrate. No pneumothorax or pleural effusion is appreciated. Median sternotomy wires present. Aortic atherosclerosis is noted. Spinal stimulator is seen. Right-sided PICC line has been removed. Pulmonary vascularity appears at the upper limits of normal. Impression: 1. No acute cardiopulmonary process. DICTATED and SIGNED BY: DENICE LAZAR MD DATE: 01/09/17 0939 CC: AVIS FALL MD; DENICE MASTERS MD ~ [facility] [address] [place], [place] [id number] IMAGING REPORT Signed PATIENT: ORLIN ROJAS ACCOUNT: [id number] : 1945 LOCATION: ER AGE: 71 SEX: F EXAM STATUS: REG ER ORD. PHYSICIAN: AVIS FALL MD REASON: right sided pain PROCEDURE: CT CHEST WO CONTRAST CT chest without IV contrast History: Right-sided chest pain after fall onto washing machine. Comparison: CT chest 10/20/2008. Technique: Helical CT of the chest was performed without intravenous contrast. Axial, sagittal, and coronal reconstructions were obtained. One or more of the following individualized dose reduction techniques were utilized for the study: Automated exposure control Adjustment of mA and/or kV according to patient's size Use of iterative reconstruction technique. Findings: Multinodular goiter is again seen. No mediastinal lymphadenopathy is seen. Trachea and mainstem bronchi appear patent. Median sternotomy wires are present. Post CABG changes are seen. Cardiac chambers appear patent. Near the upper limits of normal. No acute airspace disease is seen. No pneumothorax or pleural effusion is identified. 4-5 mm soft tissue pulmonary nodule seen in the left lower lobe (axial image 31), unchanged. Bilateral breast implants are seen. Cholecystectomy clips are present. Spinal stimulator is noted. Upper lumbar vertebral body demonstrates compression treated with cement. There is accentuation of the thoracic kyphosis in the upper thoracic spine secondary to 2 adjacent wedge compressions, probably old. The right anterior seventh and eighth ribs demonstrate nondisplaced fractures, presumably acute. Impression: 1. Nondisplaced right anterior seventh and eighth rib fractures. 2. No acute airspace disease identified. DICTATED and SIGNED BY: DENICE LAZAR MD DATE: 01/09/17 1001 CC: AVIS FALL MD; DENICE MASTERS MD ~ Impressions: Rib pain Course & Med Decision Making Course & Med Decision Making Pertinent Labs and Imaging studies reviewed. (See chart for details) Patient refused additional lab draws, therefore labs have not been obtained. CT scan of her chest did show rib fractures. Patient is being discharged with narcotic pain medicine. She is given enough for 2 days in addition to follow-up with her primary care physician. It's likely that she's been taking excessive pain meds is why she is out therefore will only give her enough until she can follow-up with her primary care physician in 2 days. Return precautions given for fevers, shortness of breath or other concerns. She is agreeable Plan B discharged in stable condition at this time. Dragon Disclaimer Dragon Disclaimer This electronic medical record was generated, in whole or in part, using a voice recognition dictation system. Departure Departure Impression: Primary Impression: Rib fracture Disposition: HOME, SELF-CARE Condition: STABLE Referrals: DENICE MASTERS MD (PCP) Patient Instructions: Rib Fracture Additional Instructions: We were unable to obtain blood and you've would not allow us to attempt any more access to obtain blood. Her CT scan shows 2 rib fractures. Your being discharged home with pain meds. You will need to follow-up with your primary care physician on Saturday. Return ER for worsening pain, shortness of breath, or other concerns. Scripts Fentanyl (FENTANYL 25mcg/hr) 1 Each Patch.td72 1 PATCH TP Q3DAYS, #1 PATCH Prov: AVIS FALL MD 01/09/17 Oxycodone Hcl (OXYCODONE HCL) 5 Mg Tablet 5 MG PO Q6HRS Y for PAIN, #20 TAB 0 Refills Prov: AVIS FALL MD 01/09/17 AVIS FALL MD January 09, 2017 08:51
[2017-01-09] MEDS ORDERED: ONDANSETRON PF 4 MG/2 ML VIAL. IV ONE (09:15)
[2017-01-09] MEDS ORDERED: MORPHINE SULFATE 4 MG/ML DISP.SYRIN. IV/SQ PRN (09:15)
[2017-01-09] MEDS ORDERED: MORPHINE SULFATE 4 MG/ML DISP.SYRIN. IM ONE (09:30)
[2017-01-09] MEDS ORDERED: ONDANSETRON ODT 4 MG TAB.RAPDIS. PO ONE (09:30)
[2017-01-09 09:43] LABS: BILIRUBIN,URINE NEGATIVE (NEG); GLUCOSE,URINE 500 mg/dL (NEG); NITRITE,URINE NEGATIVE (NEG); PH,URINE 6.5; PROTEIN,URINE NEGATIVE (NEG-TRACE); UROBILINOGEN,URINE 0.2 mg/dL (0.2 mg/dL)
--- NOTE | 2017-01-09 09:44 | RAD ---
Exam: AP portable chest. History: Chest pain under the right breast after injury 3 weeks ago. Comparison: 11/19/2016. Findings: The heart and mediastinal structures are within normal limits for size. Lungs are without infiltrate. No pneumothorax or pleural effusion is appreciated. Median sternotomy wires present. Aortic atherosclerosis is noted. Spinal stimulator is seen. Right-sided PICC line has been removed. Pulmonary vascularity appears at the upper limits of normal. Impression: 1. No acute cardiopulmonary process.
[2017-01-09] MEDS ORDERED: LIDOCAINE 1% / SOD BICARB 8.4% 20 ML VIAL. IJ ONE (09:45)
[2017-01-09 09:51] LABS: BARBITURATES NEG (NEG); BENZODIAZEPINES NEG (NEG); CANNABINOIDS NEG (NEG); COCAINE NEG (NEG); METHADONE NEG (NEG); OPIATES NEG (NEG); PHENCYCLIDINE NEG (NEG)
[2017-01-09 10:10] LABS: BACTERIA,URINE 0 /HPF (0-FEW); SQUAMOUS EPITHELIAL CELL,UR FEW /LPF; WBC,URINE 0 /HPF (0-4)
--- NOTE | 2017-01-09 10:12 | RAD ---
CT chest without IV contrast History: Right-sided chest pain after fall onto washing machine. Comparison: CT chest 10/20/2008. Technique: Helical CT of the chest was performed without intravenous contrast. Axial, sagittal, and coronal reconstructions were obtained. One or more of the following individualized dose reduction techniques were utilized for the study: Automated exposure control Adjustment of mA and/or kV according to patient's size Use of iterative reconstruction technique. Findings: Multinodular goiter is again seen. No mediastinal lymphadenopathy is seen. Trachea and mainstem bronchi appear patent. Median sternotomy wires are present. Post CABG changes are seen. Cardiac chambers appear patent. Near the upper limits of normal. No acute airspace disease is seen. No pneumothorax or pleural effusion is identified. 4-5 mm soft tissue pulmonary nodule seen in the left lower lobe (axial image 31), unchanged. Bilateral breast implants are seen. Cholecystectomy clips are present. Spinal stimulator is noted. Upper lumbar vertebral body demonstrates compression treated with cement. There is accentuation of the thoracic kyphosis in the upper thoracic spine secondary to 2 adjacent wedge compressions, probably old. The right anterior seventh and eighth ribs demonstrate nondisplaced fractures, presumably acute. Impression: 1. Nondisplaced right anterior seventh and eighth rib fractures. 2. No acute airspace disease identified.
--- NOTE | 2017-01-09 10:54 | EKG ---
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
[2017-01-09 11:26] VITALS: BP 189/73
[2017-01-09] MEDS ORDERED: FENT1PAT15 TP (12:09)
[2017-01-09] MEDS ORDERED: OXYC5TAB PO (12:09)
== END 2017-01-09 12:18 | disposition home or self-care (01) ==
LOC: ER 08:38
DX: S22.41XA Multiple fractures of ribs, right side, initial encounter for closed fracture (principal); I10 Essential (primary) hypertension; F31.9 Bipolar disorder, unspecified; E11.43 Type 2 diabetes mellitus with diabetic autonomic (poly)neuropathy; K31.84 Gastroparesis; Z90.49 Acquired absence of other specified parts of digestive tract; Z90.710 Acquired absence of both cervix and uterus; Z95.1 Presence of aortocoronary bypass graft; Z88.0 Allergy status to penicillin; Z95.5 Presence of coronary angioplasty implant and graft; Z88.1 Allergy status to other antibiotic agents; Z88.8 Allergy status to other drugs, medicaments and biological substances; Z91.041 Radiographic dye allergy status; W22.8XXA Striking against or struck by other objects, initial encounter; Y93.89 Activity, other specified; Y92.89 Other specified places as the place of occurrence of the external cause; Y99.8 Other external cause status
CPT/HCPCS: 71010; 71250; 80305; 80320; 81001; 93005; 96372; 96374; 99285; J2270; Q0162; G0481

== ENCOUNTER 2017-02-01 12:01 | Emergency (ER) | payer MEDICARE, OTHER ==
[~2017-02-01] VITALS: Ht 157.5 cm; Wt 71.7 kg
[~2017-02-01 12:01] MED LIST changes: -CLOP75TA27 PO; +CLOP75TA57 PO; +FENT1PAT15 TP; -HYDR-2672 PO; +HYDR-2766 PO; -OMEP20TA PO; +OMEP20TA8 PO; +OXYC5TAB PO; -PIOG45TA19 PO; +PIOG45TA40 PO; -SUCR1TAB29 PO; +SUCR1TAB35 PO; -TRAM-29 PO; +TRAM-48 PO
[2017-02-01] MEDS ORDERED: ONDANSETRON PF 4 MG/2 ML VIAL. IV ONE (12:30)
[2017-02-01] MEDS ORDERED: IV NORMAL SALINE 500ML BAG 500 ML IV ONE (12:30)
[2017-02-01] MEDS ORDERED: fentaNYL 25MCG/HR PATCH 1 PATCH PATCH.TD72 TD ONE (12:30)
[2017-02-01 12:37] LABS: BASO # 0.1 x10^3/uL (0.0-0.2); BASO % 1 % (0-3); EOS % 0 % (0-3); HEMATOCRIT 36.3 % (36.0-47.0); HEMOGLOBIN 12.1 g/dL (12.0-15.5); LYMPH # 1.9 x10^3/uL (1.0-4.8); LYMPH % 29 % (24-48); MEAN CORPUSCULAR HEMOGLOBIN 32 pg (25-35); MEAN CORPUSCULAR HGB CONC 34 g/dL (31-37); MEAN CORPUSCULAR VOLUME 96 fL (79-100); MONO % 10 % (0-9); NEUT % 60 % (31-73); PLATELET COUNT 382 x10^3/uL (140-400); RED CELL DISTRIBUTION WIDTH 14.3 % (11.5-14.5); WHITE BLOOD COUNT 6.7 x10^3/uL (4.0-11.0)
[2017-02-01 12:41] LABS: CALCIUM 9.8 mg/dL (8.5-10.1); CREATININE 0.8 mg/dL (0.6-1.0); GFR 70.7; POTASSIUM 3.7 mmol/L (3.5-5.1)
[2017-02-01 12:47] LABS: ALBUMIN 4.4 g/dL (3.4-5.0); ALBUMIN/GLOBULIN RATIO 1.1 (1.0-1.7); TOTAL BILIRUBIN 0.3 mg/dL (0.2-1.0); TOTAL PROTEIN 8.3 g/dL (6.4-8.2)
[2017-02-01] MEDS: fentaNYL PF VIAL 100 MCG/2 ML VIAL IV PRN ×4 (12:49→15:29)
[2017-02-01 13:19] LABS: BILIRUBIN,URINE NEGATIVE (NEG); GLUCOSE,URINE 100 mg/dL (NEG); NITRITE,URINE NEGATIVE (NEG); PROTEIN,URINE NEGATIVE (NEG-TRACE); UROBILINOGEN,URINE 0.2 mg/dL (0.2 mg/dL)
[2017-02-01 13:29] LABS: BACTERIA,URINE 0 /HPF (0-FEW); WBC,URINE 0 /HPF (0-4)
[2017-02-01] MEDS ORDERED: LORazepam 1 MG TABLET PO ONE (13:45)
[2017-02-01 14:38] VITALS: BP 145/67
--- NOTE | 2017-02-01 14:57 | ACF ---
Admit Criteria Forms Admit Criteria Forms Admit Criteria Forms ABDOMINAL PAIN Clinical Indications for Admission to Inpatient Care (Place 'X' for any and all applicable criteria): Admission is indicated for ANY ONE of the following(1)(2)(3)(4)(5): [ ]I. Inpatient admission required rather than observation care (Also use Abdominal Pain: Observation Care, as appropriate) because of ANY ONE of the following: [ ]a) Severe pain requiring acute inpatient management [ ]b) Identification of etiology/finding that requires inpatient care (eg, aortic dissection, free air) [ ]c) Absent bowel sounds with complete ileus(6) [ ]d) Suspected toxic megacolon [ ]e) Severe electrolyte abnormalities requiring inpatient care [ ]f) High fever or infection requiring inpatient admission as indicated by ANY ONE of following(7)(8): [ ] i) Appropriate outpatient or observational care antimicrobial treatment unavailable, not effective, or not feasible [ ] ii) Documented bacteremia [ ] iii) Temperature > 104.9 degrees F (oral) [ ] iv) T >103.1 F (oral) or < 96.8 F(rectal) that does not respond to all emergency treatment measures [ ]g) Signs of intestinal obstruction [B] [ ]h) Hemodynamic instability [ ]i) IV fluid to replace significant ongoing losses (greater than 3 L/m2 per day) (12)(13) [ ]j) Percutaneous or open drainage (eg, abscess, biliary tract ) procedures [ ]k) Parenteral nutrition regimen that must be implemented on inpatient basis [ ]l) Other condition,treatment or monitoring requiring inpatient admission. [ ]II. Peritoneal signs present [ ]III. Surgery needed that cannot be performed on an ambulatory basis. [ ]IV. Evaluation requires patient to not eat or drink for extended period ( eg, more than 24 hours). [ ]V. Contraindications and/or Inappropriate clinical situations for Observational Care in patients with abdominal pain, when ANY ONE of the following is required: [ ]a) Thorough evaluation is required to prevent catastrophic events due to delays in diagnosing (e.g.Mesenteric ischemia) 1,3 [ ]b) Patient with severe pathology or with chronic symptoms unlikely to improve in the ED stay (3) [X]. General contraindications and/or Inappropriate clinical situations for Observational Care in patients with abdominal pain, when ANY ONE of the following is required: [X]a) Prediction of prolongation of LOS based on ANY ONE of the following may be considered as a contraindication for observational care 2, 3, 4, 5, 6, 7, 8, 9, 10, 11 [X]i) Age > 65 yrs. [X]ii) Patient arriving by ambulance [ ]iii) Patient with high acuity [ ]iv) Patient requiring vital sign monitoring [ ]v) Patient on IV medication [ ]b) Systolic blood pressures 180mmHg 3,12 [ ]c) Patient with altered mental status including delirium and other alteration of consciousness, (3) [ ]d) Patient whose discharge disposition will be to a custodial home or rehabilitation home should not be managed in Emergency Department Observation Unit. CMS rule requires 3 days hospital stay before such placement.3,13 [ ]e) Patient with failure to thrive due to broad array of etiologies 3,16,17 [ ]f) Inability to ambulate 3,14 Extended stay beyond goal length of stay may be needed for(2)(3): [ ]a) Persistent abdominal pain with suspected intra-abdominal process [ ]b) Diagnosed condition requiring continued stay (e.g., pancreatitis, complicated diverticulitis) [ ]c) Surgery (e.g., colectomy) The original [employer] content created by [employer] has been revised. The portions of the content which have been revised are identified through the use of italic text or in bold, and [facility] has neither reviewed nor approved the modified material.All other unmodified content is copyright [employer]. Please see references footnoted in the original [employer] edition 2016 YANDEL DELACRUZ Feb 01, 2017 14:57
--- NOTE | 2017-02-01 15:26 | PHYS DOC ---
Past Medical History Past Medical History: Bipolar, Diabetes-Type II, Heart Disease, Hypertension, IBS, Seizure, Other Additional Past Medical Histor: Gastroparesis Past Surgical History: Appendectomy, Cholecystectomy, Hysterectomy, Other Additional Past Surgical Histo: Cardiac stents x 5, CABG, Fused R)ankle surgery Alcohol Use: None Drug Use: None Adult General Chief Complaint Chief Complaint: ABDOMINAL PAIN HPI HPI Patient is a 71 year old female complaining of abdominal pain, vomiting and diarrhea for 2 days. The patient states "this is nothing I haven't had before". The patient has a history of gastroparesis, she frequently has abdominal pain and vomiting from time to time. About 2 weeks ago, she had a rib fracture because she jumped to sit but non-her washing machine. She has been taking some oxycodone for pain prescribed by her PCP. She also has a fentanyl patch 25 mics that she is supposed to change every 3 days, but she often forgets. Today when she got here, she had a patch that had been on 4 days and she removed it. The patient denies urinary symptoms. He has had chills but denies fever. No blood or coffee-ground emesis. PCP Dr. Masters Review of Systems Review of Systems Constitutional: As in history of present illness HENT: Denies nasal congestion or sore throat [] Respiratory: Denies cough or shortness of breath [] Cardiovascular: No additional information not addressed in HPI [] GI: As in history of present illness : Denies dysuria or hematuria [] Musculoskeletal: Denies back pain or joint pain [] Integument: Denies rash or skin lesions [] Neurologic: Denies headache, focal weakness or sensory changes [] Current Medications Current Medications Current Medications Medications (Trade) Dose Ordered Sig/[facility] Start Time Stop Time Status Last Admin Dose Admin Fentanyl (Duragesic 25mcg/ Hr Patch) 1 patch 1X ONCE 02/01/17 12:30 02/01/17 12:31 DC 02/01/17 12:52 1 PATCH Fentanyl Citrate (Fentanyl 2ml Vial) 25 mcg PRN Q15MIN PRN 02/01/17 12:30 02/01/17 15:50 DC 02/01/17 15:29 25 MCG Lorazepam (Ativan) 1 mg 1X ONCE 02/01/17 13:45 02/01/17 13:46 DC 02/01/17 13:42 1 MG Ondansetron HCl (Zofran) 4 mg 1X ONCE 02/01/17 12:30 02/01/17 12:31 DC 02/01/17 12:41 4 MG Sodium Chloride 500 ml @ 500 mls/hr 1X ONCE 02/01/17 12:30 02/01/17 13:29 DC 02/01/17 12:42 500 MLS/HR Allergies Allergies Allergies Coded Allergies Type Severity Reaction Last Updated Verified Iodinated Contrast Media - Oral and Allergy Severe Anaphylaxis 05/27/16 Yes Penicillins Allergy Intermediate 05/27/16 Yes atenolol Allergy Intermediate 05/27/16 Yes erythromycin base Allergy Intermediate 05/27/16 Yes iodine Allergy Intermediate 05/27/16 Yes levofloxacin Allergy Intermediate 05/27/16 Yes pregabalin Allergy Intermediate 05/27/16 Yes Physical Exam Physical Exam Constitutional: Well developed, well nourished, no acute distress, non-toxic appearance. Alert, mentating normally, no acute distress, no vomiting noted. HENT: Normocephalic, atraumatic, bilateral external ears normal, nose normal. [] Eyes: conjunctiva normal, no discharge. [] Neck: Normal range of motion, no stridor. [] Cardiovascular:Heart rate regular rhythm, no murmur [] Lungs & Thorax: Bilateral breath sounds clear to auscultation [] Abdomen: Bowel sounds normal, soft, nondistended, no masses, no pulsatile masses. Mild tenderness to palpation generalized, nonlocalized tenderness, no rebound or guarding. Skin: Warm, dry, no erythema, no rash. [] Extremities: No tenderness, no cyanosis, no clubbing, ROM intact, no edema. [] Neurologic: Alert and oriented X 3, normal motor function, normal sensory function, no focal deficits noted. [] Current Patient Data Vital Signs Vital Signs Date Time Temp Pulse Resp B/P (MAP) Pulse Ox O2 Delivery O2 Flow Rate FiO2 02/01/17 15:29 20 98 Room Air 02/01/17 14:38 71 145/67 (93) 02/01/17 12:01 98.4 98.4 Lab Values Laboratory Tests Test 02/01/17 12:11 02/01/17 13:12 White Blood Count 6.7 x10^3/uL (4.0-11.0) Red Blood Count 3.80 x10^6/uL (3.50-5.40) Hemoglobin 12.1 g/dL (12.0-15.5) Hematocrit 36.3 % (36.0-47.0) Mean Corpuscular Volume 96 fL (79-100) Mean Corpuscular Hemoglobin 32 pg (25-35) Mean Corpuscular Hemoglobin Concent 34 g/dL (31-37) Red Cell Distribution Width 14.3 % (11.5-14.5) Platelet Count 382 x10^3/uL (140-400) Neutrophils (%) (Auto) 60 % (31-73) Lymphocytes (%) (Auto) 29 % (24-48) Monocytes (%) (Auto) 10 % (0-9) H Eosinophils (%) (Auto) 0 % (0-3) Basophils (%) (Auto) 1 % (0-3) Neutrophils # (Auto) 4.0 x10^3uL (1.8-7.7) Lymphocytes # (Auto) 1.9 x10^3/uL (1.0-4.8) Monocytes # (Auto) 0.7 x10^3/uL (0.0-1.1) Eosinophils # (Auto) 0.0 x10^3/uL (0.0-0.7) Basophils # (Auto) 0.1 x10^3/uL (0.0-0.2) Sodium Level 142 mmol/L (136-145) Potassium Level 3.7 mmol/L (3.5-5.1) Chloride Level 103 mmol/L (98-107) Carbon Dioxide Level 21 mmol/L (21-32) Anion Gap 18 (6-14) H Blood Urea Nitrogen 14 mg/dL (7-20) Creatinine 0.8 mg/dL (0.6-1.0) Estimated GFR (Cockcroft-Gault) 70.7 BUN/Creatinine Ratio 18 (6-20) Glucose Level 212 mg/dL (70-99) H Calcium Level 9.8 mg/dL (8.5-10.1) Total Bilirubin 0.3 mg/dL (0.2-1.0) Aspartate Amino Transferase (AST) 25 U/L (15-37) Alanine Aminotransferase (ALT) 27 U/L (14-59) Alkaline Phosphatase 100 U/L (46-116) Total Protein 8.3 g/dL (6.4-8.2) H Albumin 4.4 g/dL (3.4-5.0) Albumin/Globulin Ratio 1.1 (1.0-1.7) Lipase 246 U/L (73-393) Urine Collection Type U cath Urine Color Yellow Urine Clarity Clear Urine pH 5.0 Urine Specific [place] 1.025 Urine Protein Negative mg/dL (NEG-TRACE) Urine Glucose (UA) 100 mg/dL (NEG) Urine Ketones (Stick) Negative mg/dL (NEG) Urine Blood Negative (NEG) Urine Nitrite Negative (NEG) Urine Bilirubin Negative (NEG) Urine Urobilinogen Dipstick 0.2 mg/dL (0.2 mg/dL) Urine Leukocyte Esterase Negative (NEG) Urine RBC 1-2 /HPF (0-2) Urine WBC 0 /HPF (0-4) Urine Bacteria 0 /HPF (0-FEW) Urine Mucus Slight /LPF Laboratory Tests 02/01/17 12:11 Laboratory Tests 02/01/17 12:11 EKG EKG [] Radiology/Procedures Radiology/Procedures [] Course & Med Decision Making Course & Med Decision Making Pertinent Labs and Imaging studies reviewed. (See chart for details) 71-year-old female who chronically uses fentanyl patches presents with some abdominal pain, vomiting and diarrhea, and is noted to have a fentanyl patch that has . I attribute some of her symptoms to possible opiate withdrawal. I discussed with her the importance of making sure that she changes her patches when she is supposed to. Labs unremarkable. The patient remained stable in the emergency department with no vomiting. I believe she stable for discharge. [] Dragon Disclaimer Dragon Disclaimer This electronic medical record was generated, in whole or in part, using a voice recognition dictation system. Departure Departure Impression: Primary Impression: Epigastric abdominal pain Additional Impressions: Opiate dependence Opiate withdrawal Disposition: 01 HOME, SELF-CARE Condition: IMPROVED Referrals: DENICE MASTERS MD (PCP) Patient Instructions: Abdominal Pain (Nonspecific) Additional Instructions: As we discussed, when you have been using fentanyl patches for a long time, it' s very important to change them regularly. I think some of your complaints today were caused by opiate withdrawal because you did not change or fentanyl patch on time. Write this on your calendar as we discussed. The next patch is due on Saturday at noon. Problem Qualifiers TONNY PARKER MD Feb 01, 2017 15:25
== END 2017-02-01 15:40 | disposition home or self-care (01) ==
LOC: ER 12:01
DX: R10.13 Epigastric pain (principal); F11.23 Opioid dependence with withdrawal; R11.10 Vomiting, unspecified; R19.7 Diarrhea, unspecified; R10.84 Generalized abdominal pain; F31.9 Bipolar disorder, unspecified; E11.43 Type 2 diabetes mellitus with diabetic autonomic (poly)neuropathy; K31.84 Gastroparesis; I11.9 Hypertensive heart disease without heart failure; K58.9 Irritable bowel syndrome, unspecified; Z95.1 Presence of aortocoronary bypass graft; Z95.5 Presence of coronary angioplasty implant and graft; Z90.49 Acquired absence of other specified parts of digestive tract; Z90.710 Acquired absence of both cervix and uterus; Z88.0 Allergy status to penicillin; Z88.1 Allergy status to other antibiotic agents; Z88.8 Allergy status to other drugs, medicaments and biological substances
CPT/HCPCS: 36415; 80053; 81001; 83690; 85027; 96361; 96374; 96375; 96376; 99284; J2405; J3010; J7040; P9612

== ENCOUNTER 2017-02-07 10:01 | Emergency (ER) | payer MEDICARE, OTHER ==
[~2017-02-07] VITALS: Ht 147.3 cm; Wt 72.6 kg
--- NOTE | 2017-02-07 10:31 | PHYS DOC ---
Past Medical History Past Medical History: Bipolar, Diabetes-Type II, Heart Disease, Hypertension, IBS, Seizure, Other Additional Past Medical Histor: Gastroparesis Past Surgical History: Appendectomy, Cholecystectomy, Hysterectomy, Other Additional Past Surgical Histo: Cardiac stents x 5, CABG, Fused R)ankle surgery Alcohol Use: None Drug Use: None Adult General Chief Complaint Chief Complaint: MULTIPLE COMPLAINTS HPI HPI Patient is a 71 year old female who presents with increasing chest pain shortness of breath. She states she ran out of her fentanyl patches this morning and her pains been getting worse over the last several days. She states she can make you to the bathroom and back and feel short of breath. She states overall she is just not feeling well. She denies any fevers chills, productive cough, nausea or vomiting. She states her chest pains been there since she broke her ribs but she feels like the pain is getting worse. She tried to see Dr. Masters today but he's out of the office today. Review of Systems Review of Systems Constitutional: Denies fever or chills [] Eyes: Denies change in visual acuity, redness, or eye pain [] HENT: Denies nasal congestion or sore throat [] Respiratory: Denies productive cough, positive for shortness of breath [] Cardiovascular: No additional information not addressed in HPI [] GI: Denies abdominal pain, nausea, vomiting, bloody stools or diarrhea [] : Denies dysuria or hematuria [] Musculoskeletal: Denies back pain or joint pain [] Integument: Denies rash or skin lesions [] Neurologic: Denies headache, focal weakness or sensory changes [] Endocrine: Denies polyuria or polydipsia [] Current Medications Current Medications Current Medications Medications (Trade) Dose Ordered Sig/[facility] Start Time Stop Time Status Last Admin Dose Admin Acetaminophen (Tylenol) 650 mg 1X ONCE 02/07/17 11:45 02/07/17 11:46 DC 02/07/17 11:50 650 MG Fentanyl (Duragesic 25mcg/ Hr Patch) 1 patch 1X ONCE 02/07/17 14:15 02/07/17 14:16 Fentanyl Citrate (Fentanyl 2ml Vial) 50 mcg PRN Q15MIN PRN 02/07/17 12:00 02/08/17 11:59 02/07/17 12:00 50 MCG Ondansetron HCl (Zofran) 4 mg 1X ONCE 02/07/17 11:00 02/07/17 11:01 DC 02/07/17 12:00 4 MG Sodium Chloride 1,000 ml @ 1,000 mls/hr Q1H 02/07/17 11:00 02/07/17 11:59 DC 02/07/17 11:49 1,000 MLS/HR Allergies Allergies Allergies Coded Allergies Type Severity Reaction Last Updated Verified Iodinated Contrast Media - Oral and Allergy Severe Anaphylaxis 05/27/16 Yes Penicillins Allergy Intermediate 05/27/16 Yes atenolol Allergy Intermediate 05/27/16 Yes erythromycin base Allergy Intermediate 05/27/16 Yes iodine Allergy Intermediate 05/27/16 Yes levofloxacin Allergy Intermediate 05/27/16 Yes pregabalin Allergy Intermediate 05/27/16 Yes Physical Exam Physical Exam Constitutional: Well developed, well nourished, no acute distress, non-toxic appearance. [] HENT: Normocephalic, atraumatic, bilateral external ears normal, oropharynx moist, no oral exudates, nose normal. [] Eyes: PERRLA, EOMI, conjunctiva normal, no discharge. [] Neck: Normal range of motion, no tenderness, supple, no stridor. [] Cardiovascular:Heart rate regular rhythm, no murmur [] Lungs & Thorax: Bilateral breath sounds clear to auscultation [] Abdomen: Bowel sounds normal, soft, no tenderness, no masses, no pulsatile masses. [] Skin: Warm, dry, no erythema, no rash. [] Back: No tenderness, no CVA tenderness. [] Extremities: No tenderness, no cyanosis, no clubbing, ROM intact, no edema. [] Neurologic: Alert and oriented X 3, normal motor function, normal sensory function, no focal deficits noted. [] Psychologic: Affect normal, judgement normal, mood normal. [] Current Patient Data Vital Signs Vital Signs Date Time Temp Pulse Resp B/P (MAP) Pulse Ox O2 Delivery O2 Flow Rate FiO2 02/07/17 13:37 74 18 159/76 (103) 100 Room Air 02/07/17 10:08 97.8 97.8 Lab Values Laboratory Tests Test 02/07/17 10:10 02/07/17 11:10 Urine Collection Type Unknown Urine Color Yellow Urine Clarity Clear Urine pH 5.0 Urine Specific [place] >=1.030 Urine Protein Negative mg/dL (NEG-TRACE) Urine Glucose (UA) Negative mg/dL (NEG) Urine Ketones (Stick) Negative mg/dL (NEG) Urine Blood Negative (NEG) Urine Nitrite Negative (NEG) Urine Bilirubin Negative (NEG) Urine Urobilinogen Dipstick 0.2 mg/dL (0.2 mg/dL) Urine Leukocyte Esterase Moderate (NEG) Urine RBC 1-2 /HPF (0-2) Urine WBC 5-10 /HPF (0-4) Urine Squamous Epithelial Cells Mod /LPF Urine Renal Epithelial Cells Few /LPF Urine Bacteria Few /HPF (0-FEW) Urine Hyaline Casts Moderate /HPF Urine Mucus Slight /LPF White Blood Count 8.5 x10^3/uL (4.0-11.0) Red Blood Count 3.93 x10^6/uL (3.50-5.40) Hemoglobin 12.5 g/dL (12.0-15.5) Hematocrit 37.5 % (36.0-47.0) Mean Corpuscular Volume 95 fL (79-100) Mean Corpuscular Hemoglobin 32 pg (25-35) Mean Corpuscular Hemoglobin Concent 33 g/dL (31-37) Red Cell Distribution Width 14.9 % (11.5-14.5) H Platelet Count 375 x10^3/uL (140-400) Neutrophils (%) (Auto) 66 % (31-73) Lymphocytes (%) (Auto) 24 % (24-48) Monocytes (%) (Auto) 9 % (0-9) Eosinophils (%) (Auto) 0 % (0-3) Basophils (%) (Auto) 1 % (0-3) Neutrophils # (Auto) 5.6 x10^3uL (1.8-7.7) Lymphocytes # (Auto) 2.0 x10^3/uL (1.0-4.8) Monocytes # (Auto) 0.8 x10^3/uL (0.0-1.1) Eosinophils # (Auto) 0.0 x10^3/uL (0.0-0.7) Basophils # (Auto) 0.1 x10^3/uL (0.0-0.2) Prothrombin Time 12.5 SEC (11.7-14.0) Prothrombin Time INR 1.0 (0.8-1.1) Sodium Level 140 mmol/L (136-145) Potassium Level 4.3 mmol/L (3.5-5.1) Chloride Level 104 mmol/L (98-107) Carbon Dioxide Level 24 mmol/L (21-32) Anion Gap 12 (6-14) Blood Urea Nitrogen 16 mg/dL (7-20) Creatinine 0.9 mg/dL (0.6-1.0) Estimated GFR (Cockcroft-Gault) 61.7 Glucose Level 138 mg/dL (70-99) H Calcium Level 10.4 mg/dL (8.5-10.1) H Total Bilirubin 0.2 mg/dL (0.2-1.0) Direct Bilirubin 0.1 mg/dL (0.0-0.2) Aspartate Amino Transferase (AST) 18 U/L (15-37) Alanine Aminotransferase (ALT) 21 U/L (14-59) Alkaline Phosphatase 99 U/L (46-116) Creatine Kinase 72 U/L (26-192) Creatine Kinase MB (Mass) 0.5 ng/mL (0.0-3.6) Creatine Kinase MB Relative Index % (0-4) Troponin I Quantitative < 0.017 ng/mL (0.000-0.055) KN-Fkv-[id number]-Type Natriuretic Peptide 350 pg/mL (0-124) H Total Protein 8.2 g/dL (6.4-8.2) Albumin 4.6 g/dL (3.4-5.0) Lipase 323 U/L (73-393) Laboratory Tests 02/07/17 11:10 Laboratory Tests 02/07/17 11:10 EKG EKG EKG shows sinus rhythm with a rate of [address] elevations or T- wave inversions appreciated, QTC 420 ms, left axis deviation, as interpreted by me. Radiology/Procedures Radiology/Procedures [facility] [address] [place] [address] IMAGING REPORT Signed PATIENT: ORLIN ROJAS ACCOUNT: [id number] : 1945 LOCATION: ER AGE: 71 SEX: F EXAM STATUS: REG ER ORD. PHYSICIAN: AVIS FALL MD REASON: VOMITING, HISTORY OF GASTROPARESIS PROCEDURE: ACUTE ABDOMEN SERIES Indication: Vomiting and gastroparesis. Time of exam 10:39 AM Changes of median sternotomy are noted. The lungs are clear. There is a spinal stimulator noted in the mid thoracic spine. No free air is detected. There are surgical clips in the right upper quadrant and left upper quadrant. The bowel gas pattern is nonobstructive. No pathologic calcifications are seen. Kyphoplasty changes at L2 are noted. Impression: No acute abnormality is detected. DICTATED and SIGNED BY: JIL DYKES MD DATE: 02/07/17 1048 CC: AVIS FALL MD; DENICE MASTERS MD ~ Impressions: Chest wall pain Course & Med Decision Making Course & Med Decision Making Pertinent Labs and Imaging studies reviewed. (See chart for details) Patient's EKG does not show any acute abnormalities and is similar to the previous one done. Labs, acute abdominal series including a chest x-ray and a O2 walking desat around the department are all within normal limits. Patient is received IV fentanyl. Spoke with Dr. Masters whose okay with the patient being discharged home and follow-up with him tomorrow. Return precautions given the patient's agreeable plan of being discharged in stable condition. I did discharge her with a fentanyl patch 25 g per hour placed on her prior to discharge. Dragon Disclaimer Dragon Disclaimer This electronic medical record was generated, in whole or in part, using a voice recognition dictation system. Departure Departure Impression: Primary Impression: Thoracic sprain and strain Disposition: 01 HOME, SELF-CARE Condition: STABLE Referrals: DENICE MASTERS MD (PCP) Patient Instructions: Chronic Pain Management Additional Instructions: You were seen today for your shortness of breath and chest pain. Your oxygen saturation level was normal and we walked around the emergency department. Your chest x-ray, EKG and labs also did not show any acute abnormalities. Your being discharged home. I spoke with Dr. Masters he wanted to be seen tomorrow in his clinic. Please call his office and schedule an appointment. Return back to ER if you have severe pain, shortness of breath, or other concerns. AVIS FALL MD Feb 07, 2017 10:31
[2017-02-07 10:52] LABS: BILIRUBIN,URINE NEGATIVE (NEG); GLUCOSE,URINE NEGATIVE (NEG); NITRITE,URINE NEGATIVE (NEG); PROTEIN,URINE NEGATIVE (NEG-TRACE); UROBILINOGEN,URINE 0.2 mg/dL (0.2 mg/dL)
--- NOTE | 2017-02-07 10:52 | RAD ---
Indication: Vomiting and gastroparesis. Time of exam 10:39 AM Changes of median sternotomy are noted. The lungs are clear. There is a spinal stimulator noted in the mid thoracic spine. No free air is detected. There are surgical clips in the right upper quadrant and left upper quadrant. The bowel gas pattern is nonobstructive. No pathologic calcifications are seen. Kyphoplasty changes at L2 are noted. Impression: No acute abnormality is detected.
[2017-02-07 10:59] LABS: SQUAMOUS EPITHELIAL CELL,UR MOD /LPF
[2017-02-07 11:00] LABS: BACTERIA,URINE FEW /HPF (0-FEW)
[2017-02-07] MEDS ORDERED: ONDANSETRON PF 4 MG/2 ML VIAL. IV ONE (11:00)
[2017-02-07] MEDS ORDERED: IV NORMAL SALINE 1000ML BAG 1,000 ML IV SCH (11:00)
[2017-02-07 11:23] LABS: BASO # 0.1 x10^3/uL (0.0-0.2); BASO % 1 % (0-3); EOS % 0 % (0-3); HEMATOCRIT 37.5 % (36.0-47.0); HEMOGLOBIN 12.5 g/dL (12.0-15.5); LYMPH % 24 % (24-48); MEAN CORPUSCULAR HEMOGLOBIN 32 pg (25-35); MEAN CORPUSCULAR HGB CONC 33 g/dL (31-37); MEAN CORPUSCULAR VOLUME 95 fL (79-100); MONO % 9 % (0-9); NEUT % 66 % (31-73); PLATELET COUNT 375 x10^3/uL (140-400); RED BLOOD COUNT 3.93 x10^6/uL (3.50-5.40); RED CELL DISTRIBUTION WIDTH 14.9 % (11.5-14.5); WHITE BLOOD COUNT 8.5 x10^3/uL (4.0-11.0)
[2017-02-07 11:36] LABS: PROTHROMBIN TIME PATIENT 12.5 SEC (11.7-14.0)
[2017-02-07 11:40] LABS: CALCIUM 10.4 mg/dL (8.5-10.1); CREATININE 0.9 mg/dL (0.6-1.0); GFR 61.7; POTASSIUM 4.3 mmol/L (3.5-5.1)
[2017-02-07 11:43] LABS: ALBUMIN 4.6 g/dL (3.4-5.0); DIRECT BILIRUBIN 0.1 mg/dL (0.0-0.2); TOTAL BILIRUBIN 0.2 mg/dL (0.2-1.0); TOTAL PROTEIN 8.2 g/dL (6.4-8.2)
[2017-02-07] MEDS ORDERED: ACETAMINOPHEN 325 MG TABLET. PO ONE (11:45)
[2017-02-07] MEDS ORDERED: fentaNYL PF VIAL 100 MCG/2 ML VIAL IV PRN (12:00)
[2017-02-07 12:04] LABS: CKMB MASS 0.5 ng/mL (0.0-3.6); CREATINE KINASE 72 U/L (26-192)
--- NOTE | 2017-02-07 12:11 | EKG ---
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
--- NOTE | 2017-02-07 12:12 | EKG ---
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
[2017-02-07] MEDS ORDERED: fentaNYL 25MCG/HR PATCH 1 PATCH PATCH.TD72 TD ONE (14:15)
[2017-02-07 14:25] VITALS: BP 138/77
== END 2017-02-07 14:40 | disposition home or self-care (01) ==
LOC: ER 10:01
DX: S29.012A Strain of muscle and tendon of back wall of thorax, initial encounter (principal); S23.3XXA Sprain of ligaments of thoracic spine, initial encounter; R06.02 Shortness of breath; F31.9 Bipolar disorder, unspecified; E11.43 Type 2 diabetes mellitus with diabetic autonomic (poly)neuropathy; K31.84 Gastroparesis; I11.9 Hypertensive heart disease without heart failure; K58.9 Irritable bowel syndrome, unspecified; Z90.49 Acquired absence of other specified parts of digestive tract; Z90.710 Acquired absence of both cervix and uterus; Z95.5 Presence of coronary angioplasty implant and graft; Z95.1 Presence of aortocoronary bypass graft; Z88.0 Allergy status to penicillin; Z88.8 Allergy status to other drugs, medicaments and biological substances; Z88.1 Allergy status to other antibiotic agents; Z91.041 Radiographic dye allergy status; X58.XXXA Exposure to other specified factors, initial encounter; Y93.89 Activity, other specified; Y92.89 Other specified places as the place of occurrence of the external cause; Y99.8 Other external cause status
CPT/HCPCS: 36415; 74022; 80048; 80076; 81001; 82553; 83690; 83880; 84484; 85027; 85610; 87086; 93005; 96361; 96374; 96375; 99285; J2405; J3010; J7030

== ENCOUNTER 2017-03-04 07:18 | Emergency (ER) | payer MEDICARE, OTHER ==
[~2017-03-04] VITALS: Ht 147.3 cm; Wt 72.6 kg
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
[2017-03-04] MEDS ORDERED: ACETAMINOPHEN 500 MG TABLET PO ONE (07:45)
[2017-03-04 07:58] VITALS: BP 161/70
--- NOTE | 2017-03-04 08:02 | RAD ---
Right ankle, 3 views, 03/04/2017: History: Pain Comparison is made to a study from 01/29/2016. There has been interval placement of an intramedullary bruno running through the distal tibia into the calcaneus. An ankle prosthesis evident on the previous study has been removed as have medial malleolar screws. A normal talus is not present. There are chronic appearing bony fragments at the previous location of this prosthesis. There is a new longitudinal oriented screw extending through the calcaneocuboid articulation. Several old surgical nav are again noted near the calcaneocuboid level. The bony structures are demineralized. No definite superimposed acute fracture or dislocation is identified. IMPRESSION: Extensive postsurgical changes as described above with attempted surgical fusion at the ankle joint level.
== END 2017-03-04 08:03 | disposition left against medical advice (07) ==
LOC: ER 07:18
DX: M25.571 Pain in right ankle and joints of right foot (principal); F31.9 Bipolar disorder, unspecified; E11.9 Type 2 diabetes mellitus without complications; I11.9 Hypertensive heart disease without heart failure; K31.84 Gastroparesis; Z95.5 Presence of coronary angioplasty implant and graft; Z90.49 Acquired absence of other specified parts of digestive tract; Z90.710 Acquired absence of both cervix and uterus; Z95.1 Presence of aortocoronary bypass graft; K58.9 Irritable bowel syndrome, unspecified; Z88.1 Allergy status to other antibiotic agents; Z88.0 Allergy status to penicillin; Z88.8 Allergy status to other drugs, medicaments and biological substances; Z91.041 Radiographic dye allergy status
CPT/HCPCS: 73610; 99284

== ENCOUNTER 2017-04-30 13:27 | Inpatient (IN) | payer MEDICARE, OTHER ==
[~2017-04-30] VITALS: Ht 147.3 cm; Wt 80.0 kg
[~2017-04-30 13:27] MED LIST changes: -OXYC5TAB PO; +OXYC5TAB95 PO
--- NOTE | 2017-04-30 13:59 | EKG ---
[facility] [address] [place] [address] Test Date: 2017-04-30 Test Time: 13:31:26 Pat Name: ORLIN ROJAS Department: Room: Gender: F E Tailer: : 1945 Requested By: LUIS MARCELO Order Number: [id number] Reading MD: Jaja Quigley Measurements Intervals [place] Rate: 80 P: 43 [place]: 160 QRS: -17 QRSD: 100 T: 71 QT: 380 QTc: 442 Interpretive Statements SINUS RHYTHM LEFT ATRIAL ABNORMALITY LEFTWARD AXIS INCOMPLETE RIGHT BUNDLE BRANCH BLOCK T ABNORMALITY IN HIGH LATERAL LEADS ABNORMAL ECG Electronically Signed On 05-05-2017 21:50:36 CDT by Jaja Quigley
--- NOTE | 2017-04-30 14:07 | RAD ---
Portable chest, 04/30/2017: History: Chest pain Comparison is made to a study from 02/07/2017. There as been a previous median sternotomy. A spinal stimulator lead extends into the mid thoracic spinal canal. The heart size and pulmonary vascularity are normal. There is calcific plaquing of the thoracic aorta. No pulmonary infiltrates are seen. There is no evidence of pleural fluid. IMPRESSION: No acute cardiopulmonary abnormality is detected.
[2017-04-30 14:59] LABS: BASO # 0.1 x10^3/uL (0.0-0.2); BASO % 1 % (0-3); EOS % 1 % (0-3); HEMATOCRIT 39.9 % (36.0-47.0); HEMOGLOBIN 13.6 g/dL (12.0-15.5); LYMPH % 25 % (24-48); MEAN CORPUSCULAR HEMOGLOBIN 32 pg (25-35); MEAN CORPUSCULAR HGB CONC 34 g/dL (31-37); MEAN CORPUSCULAR VOLUME 93 fL (79-100); MONO % 9 % (0-9); NEUT % 64 % (31-73); PLATELET COUNT 341 x10^3/uL (140-400); RED BLOOD COUNT 4.31 x10^6/uL (3.50-5.40); RED CELL DISTRIBUTION WIDTH 13.4 % (11.5-14.5)
[2017-04-30] MEDS ORDERED: HYDROmorphone 2 MG/ML VIAL IV PRN (15:00)
[2017-04-30] MEDS ORDERED: ONDANSETRON PF 4 MG/2 ML VIAL. IV ONE (15:00)
--- NOTE | 2017-04-30 15:05 | PHYS DOC ---
Past Medical History Past Medical History: Bipolar, Diabetes-Type II, Heart Disease, Hypertension, IBS, Seizure, Other Additional Past Medical Histor: Gastroparesis Past Surgical History: Appendectomy, Cholecystectomy, Hysterectomy, Other Additional Past Surgical Histo: Cardiac stents x 5, CABG, Fused R)ankle surgery Alcohol Use: None Drug Use: None Adult General Chief Complaint Chief Complaint: CHEST PAIN HPI HPI 71-year-old female presenting to the emergency Department chest pain that she describes a sharp pain in her back. She reports a history of stenting and cardiac disease. The pain is nonradiating and nonmigratory. It is moderate intermittent and without alleviating factors. She denies unilateral leg swelling or hemoptysis. Review of systems is negative for abdominal pain nausea vomiting diaphoresis fevers or chills. All other review of systems is negative unless otherwise noted in history of present illness. ED course: 71-year-old female presenting to the emergency department today with chest pain. EKG reviewed by myself shows sinus rhythm with a regular rate. [place] is leftward. ST segments are congruent. Not suggestive of ACS. Chest x-ray unremarkable. Chest x-ray negative for acute pathology. Blood work obtained. Troponin negative. Otherwise blood work unremarkable. Given patient's significant cardiac history patient was admitted for cardiac consultation further evaluation workup and care. Review of Systems Review of Systems SEE ABOVE. Current Medications Current Medications Current Medications Medications (Trade) Dose Ordered Sig/Melanie Start Time Stop Time Status Last Admin Dose Admin Hydromorphone HCl (Dilaudid) 0.5 mg PRN Q30MIN PRN 04/30/17 15:00 04/30/17 15:15 0.5 MG Ondansetron HCl (Zofran) 4 mg 1X ONCE 04/30/17 15:00 04/30/17 15:02 DC 04/30/17 15:15 4 MG Allergies Allergies Allergies Coded Allergies Type Severity Reaction Last Updated Verified Iodinated Contrast- Oral and IV Dye Allergy Severe Anaphylaxis 05/27/16 Yes Penicillins Allergy Intermediate 05/27/16 Yes atenolol Allergy Intermediate 05/27/16 Yes erythromycin base Allergy Intermediate 05/27/16 Yes iodine Allergy Intermediate 05/27/16 Yes levofloxacin Allergy Intermediate 05/27/16 Yes pregabalin Allergy Intermediate 05/27/16 Yes Physical Exam Physical Exam SEE ABOVE Constitutional: Well developed, well nourished, no acute distress, non-toxic appearance. [] HENT: Normocephalic, atraumatic, bilateral external ears normal, oropharynx moist, no oral exudates, nose normal. [] Eyes: PERRLA, EOMI, conjunctiva normal, no discharge. [] Neck: Normal range of motion, no tenderness, supple, no stridor. [] Cardiovascular:Heart rate regular rhythm, no murmur [] Lungs & Thorax: Bilateral breath sounds clear to auscultation [] Abdomen: Bowel sounds normal, soft, no tenderness, no masses, no pulsatile masses. [] Skin: Warm, dry, no erythema, no rash. [] Back: No tenderness, no CVA tenderness. [] Extremities: No tenderness, no cyanosis, no clubbing, ROM intact, no edema. [] Neurologic: Alert and oriented X 3, normal motor function, normal sensory function, no focal deficits noted. [] Psychologic: Affect normal, judgement normal, mood normal. [] Current Patient Data Vital Signs Vital Signs Date Time Temp Pulse Resp B/P (MAP) Pulse Ox O2 Delivery O2 Flow Rate FiO2 04/30/17 14:30 98.0 76 18 141/67 (91) 95 Room Air 98.0 Lab Values Laboratory Tests Test 04/30/17 14:50 White Blood Count 8.0 x10^3/uL (4.0-11.0) Red Blood Count 4.31 x10^6/uL (3.50-5.40) Hemoglobin 13.6 g/dL (12.0-15.5) Hematocrit 39.9 % (36.0-47.0) Mean Corpuscular Volume 93 fL (79-100) Mean Corpuscular Hemoglobin 32 pg (25-35) Mean Corpuscular Hemoglobin Concent 34 g/dL (31-37) Red Cell Distribution Width 13.4 % (11.5-14.5) Platelet Count 341 x10^3/uL (140-400) Neutrophils (%) (Auto) 64 % (31-73) Lymphocytes (%) (Auto) 25 % (24-48) Monocytes (%) (Auto) 9 % (0-9) Eosinophils (%) (Auto) 1 % (0-3) Basophils (%) (Auto) 1 % (0-3) Neutrophils # (Auto) 5.1 x10^3uL (1.8-7.7) Lymphocytes # (Auto) 2.0 x10^3/uL (1.0-4.8) Monocytes # (Auto) 0.7 x10^3/uL (0.0-1.1) Eosinophils # (Auto) 0.0 x10^3/uL (0.0-0.7) Basophils # (Auto) 0.1 x10^3/uL (0.0-0.2) Sodium Level 142 mmol/L (136-145) Potassium Level 3.5 mmol/L (3.5-5.1) Chloride Level 104 mmol/L (98-107) Carbon Dioxide Level 24 mmol/L (21-32) Anion Gap 14 (6-14) Blood Urea Nitrogen 20 mg/dL (7-20) Creatinine 1.1 mg/dL (0.6-1.0) H Estimated GFR (Cockcroft-Gault) 49.0 Glucose Level 194 mg/dL (70-99) H Calcium Level 9.5 mg/dL (8.5-10.1) Total Bilirubin 0.4 mg/dL (0.2-1.0) Direct Bilirubin 0.1 mg/dL (0.0-0.2) Aspartate Amino Transferase (AST) 20 U/L (15-37) Alanine Aminotransferase (ALT) 33 U/L (14-59) Alkaline Phosphatase 139 U/L (46-116) H Troponin I Quantitative < 0.017 ng/mL (0.000-0.055) RR-Svt-Q-Type Natriuretic Peptide 209 pg/mL (0-124) H Total Protein 7.9 g/dL (6.4-8.2) Albumin 4.6 g/dL (3.4-5.0) Lipase 352 U/L (73-393) Laboratory Tests 04/30/17 14:50 Laboratory Tests 04/30/17 14:50 EKG EKG [] Radiology/Procedures Radiology/Procedures [] Course & Med Decision Making Course & Med Decision Making Pertinent Labs and Imaging studies reviewed. (See chart for details) [] Dragon Disclaimer Dragon Disclaimer This electronic medical record was generated, in whole or in part, using a voice recognition dictation system. Departure Departure Impression: Primary Impression: Chest pain Additional Impression: CAD (coronary artery disease) Disposition: ADMITTED INPATIENT Admitting Physician: Natanael Masters Condition: STABLE Referrals: NATANAEL MASTERS MD (PCP) Problem Qualifiers LUIS MARCELO MD Apr 30, 2017 15:05
[2017-04-30 15:09] LABS: CALCIUM 9.5 mg/dL (8.5-10.1); CREATININE 1.1 mg/dL (0.6-1.0); POTASSIUM 3.5 mmol/L (3.5-5.1)
[2017-04-30 15:15] LABS: ALBUMIN 4.6 g/dL (3.4-5.0); DIRECT BILIRUBIN 0.1 mg/dL (0.0-0.2); TOTAL BILIRUBIN 0.4 mg/dL (0.2-1.0); TOTAL PROTEIN 7.9 g/dL (6.4-8.2)
[2017-04-30] MEDS ORDERED: ONDANSETRON PF 4 MG/2 ML VIAL. IV PRN (16:00)
[2017-04-30] MEDS ORDERED: ACETAMINOPHEN 325 MG TABLET. PO PRN (16:30)
[2017-04-30] MEDS ORDERED: NITROGLYCERIN SUBLINGUAL 0.4 MG BOTTLE OF 25. SL PRN (16:30)
[2017-04-30] MEDS ORDERED: MAG HYDROX/ALUMINUM HYD/SIMETH 30 ML ORAL.SUSP PO PRN (16:30)
[2017-04-30 16:35] VITALS: BP 143/66
--- NOTE | 2017-04-30 16:49 | PDOC ---
Provider Note Provider Note history and physical dictated # [id number] DENICE IZAGUIRRE MD Apr 30, 2017 16:49
[2017-04-30] MEDS: METOCLOPRAMIDE 10 MG TABLET. PO SCH (17:10)
[2017-04-30] MEDS: ONDANSETRON ODT 4 MG TAB.RAPDIS. PO SCH (17:10)
[2017-04-30] MEDS: PANTOPRAZOLE 40 MG TABLET.DR. PO SCH (17:10)
[2017-04-30] MEDS: IV NORMAL SALINE 1000ML BAG 1,000 ML IV SCH (17:11)
--- NOTE | 2017-04-30 17:14 | HP ---
ADMIT DATE: 04/30/2017 LOCATION: She will be in room 550. HISTORY OF PRESENT ILLNESS: The patient is a 71-year-old white female with a history of coronary artery disease, diabetes mellitus type 2 with diabetic gastroparesis, hypertension, hyperlipidemia who was helping her with some plumbing problems and was lifting some heavy things and she developed some retrosternal chest pain radiating to the back associated with nausea. Took a sublingual nitroglycerin, it helped, but the discomfort was recurrent and eventually sought help in the [facility] Emergency Room. Her EKG showed no acute change and an initial troponin level was negative. EKG showed no acute change. Chest x-ray was unremarkable. She was subsequently admitted to the hospital for further evaluation of her chest pain. She is currently pain free during my examination. ALLERGIES AND INTOLERANCES: Include IV IODINE, ORAL IODINE, PENICILLIN, ATENOLOL, ERYTHROMYCIN, LEVAQUIN and LYRICA. MEDICATIONS: Include Actos 45 mg every day, amlodipine 10 mg every day, aspirin 81 mg every day, atorvastatin 80 mg every day, Flexeril 10 mg at bedtime, fentanyl 25 mcg patch every 72 hours, hydralazine 25 mg t.i.d., Imdur 60 mg every day, Keppra 750 mg b.i.d., Lantus insulin 4 units at bedtime, NovoLog 4 units before meals t.i.d., lorazepam 1 mg t.i.d. p.r.n. for anxiety, metoclopramide 10 mg b.i.d., metoprolol tartrate 50 mg b.i.d., multiple vitamin once a day, nitroglycerin 0.4 mg sublingual p.r.n., oxycodone 10 mg 1 t.i.d. p.r.n., Plavix 75 mg every day, Protonix 40 mg every day, valsartan 320 mg every day, vitamin B12 1000 mcg every day, Zofran 4 mg before meals t.i.d. and Ambien 5 mg at bedtime p.r.n. PAST MEDICAL HISTORY: Significant for diabetes mellitus type 2 with diabetic gastroparesis, hypertension, hyperlipidemia, coronary artery disease, diabetes mellitus with microalbuminuria. She has a history of seizure disorder. She had thyrotoxicosis in the past. As mentioned, she has coronary artery disease. She had a dilated Schatzki stricture in 2011. She had a stent to the circumflex coronary artery in April 2014, left total knee arthroplasty, open reduction internal fixation of right ankle fracture, right ankle arthroplasty in 2009, three-vessel coronary artery bypass graft surgery in 2002, PTCA and coronary stents x 3 to the LAD and circumflex angioplasty and stent in the past. She had an appendectomy, cholecystectomy and tonsillectomy in the past. She has lumbar spondylosis, macular degeneration, reflux esophagitis, and history of kidney stones. SOCIAL HISTORY: She does not drink alcohol nor does she smoke cigarettes. She is . FAMILY HISTORY: Noncontributory. REVIEW OF SYSTEMS: GENERAL: She denies any fever, chills or sweats. CARDIOVASCULAR: She had the chest pain. PULMONARY: No cough or shortness breath. GASTROINTESTINAL: No constipation. She had some nausea. ENDOCRINE: She has diabetes mellitus. NEUROLOGIC: No focal weakness. The rest of systems reviewed are negative except as stated in history of present illness. PHYSICAL EXAMINATION: VITAL SIGNS: Temperature is 98 degrees, pulse rate of 81, respiratory rate 16, blood pressure 141/67, oxygen saturation 97% on room air. HEENT: Eyes: Gaze is conjugate. Mouth: Tongue is midline. NECK: There is no cervical lymphadenopathy or thyroid enlargement. HEART: Reveals an S1, S2. There is no S3 or murmur. CHEST: Nontender. Lungs are clear. ABDOMEN: Soft. She has minimal epigastric discomfort. There is no hepatosplenomegaly, masses or tenderness. EXTREMITIES: Lower extremities without edema. SKIN: No rashes. NEUROLOGIC: Revealed no focal weakness of the extremities or facial asymmetry. LABORATORY DATA: White count 5.0, hemoglobin 13.6, platelet count 341,000, 64 polys and 25 lymphocytes. Sodium 142, potassium 3.5, chloride 104, total CO2 24, BUN 20, creatinine 1.1, blood sugar 194. Liver function tests were normal, alkaline phosphatase 139. ProBNP 209. Troponin levels less than 0.017. Albumin 4.6, lipase 352. Chest x-ray showed no acute abnormality. Electrocardiogram showed normal sinus rhythm with no acute abnormality. ASSESSMENT: 1. Chest pain. She does have known coronary artery disease with multiple risk factors including diabetes mellitus, hypertension, and hyperlipidemia. 2. Coronary artery disease with previous coronary artery bypass graft surgery and previous coronary artery angioplasty and stents. 3. 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 4. Hypertension. 5. Hyperlipidemia. PLAN: At this time, consult Dr. Qugiley who had seen her in the past and we will get serial cardiac enzymes and order an echocardiogram. We will resume her home medications including put her on a diabetic diet, checking her blood sugars before meals t.i.d. and at bedtime, give her a supplemental dose of potassium chloride today, check her thyroid function tests also. DENICE IZAGUIRRE MD DR: Mino JOB#: [id number] / [id number]
[2017-04-30] MEDS: oxyCODONE IR 5 MG TABLET PO PRN (17:39)
[2017-04-30] MEDS: INSULIN ASPART 300 UNITS/3 ML INSULN.PEN SQ SCH (17:45)
[2017-04-30 19:00] VITALS: BP 142/74
[2017-04-30] MEDS: levETIRAcetam 500 MG TABLET PO SCH (20:02)
[2017-04-30] MEDS: ATORVASTATIN CALCIUM 40 MG TABLET. PO SCH (20:02)
[2017-04-30] MEDS: hydrALAZINE 25 MG TABLET PO SCH (20:02)
[2017-04-30] MEDS: METOPROLOL TART IMMED RELEASE 50 MG TABLET. PO SCH (20:03)
[2017-04-30] MEDS: CYCLOBENZAPRINE 10 MG TABLET. PO SCH (20:03)
[2017-04-30] MEDS: LORazepam 1 MG TABLET PO PRN (20:11)
[2017-04-30] MEDS: MORPHINE SULFATE 4 MG/ML DISP.SYRIN. IV PRN ×2 (20:11→23:29)
[2017-04-30] MEDS: INSULIN DETEMIR 300 UNITS/3 ML INSULN.PEN. SQ SCH (20:21)
[2017-04-30 23:00] VITALS: BP 148/72
[2017-04-30] MEDS: ZOLPIDEM 5 MG TABLET. PO PRN (23:26)
[2017-05-01] MEDS: oxyCODONE IR 5 MG TABLET PO PRN ×3 (03:19→21:05)
[2017-05-01] MEDS: IV NORMAL SALINE 1000ML BAG 1,000 ML IV SCH ×2 (04:55→15:58)
[2017-05-01] MEDS: MORPHINE SULFATE 4 MG/ML DISP.SYRIN. IV PRN ×4 (05:03→17:29)
[2017-05-01 05:39] LABS: BASO # 0.1 x10^3/uL (0.0-0.2); BASO % 1 % (0-3); EOS % 2 % (0-3); HEMATOCRIT 37.4 % (36.0-47.0); HEMOGLOBIN 12.7 g/dL (12.0-15.5); LYMPH # 2.1 x10^3/uL (1.0-4.8); LYMPH % 32 % (24-48); MEAN CORPUSCULAR HEMOGLOBIN 32 pg (25-35); MEAN CORPUSCULAR HGB CONC 34 g/dL (31-37); MEAN CORPUSCULAR VOLUME 92 fL (79-100); MONO % 9 % (0-9); NEUT % 57 % (31-73); PLATELET COUNT 312 x10^3/uL (140-400); RED BLOOD COUNT 4.04 x10^6/uL (3.50-5.40); RED CELL DISTRIBUTION WIDTH 13.2 % (11.5-14.5); WHITE BLOOD COUNT 6.7 x10^3/uL (4.0-11.0)
[2017-05-01 05:57] LABS: CALCIUM 9.3 mg/dL (8.5-10.1); CREATININE 0.8 mg/dL (0.6-1.0); GFR 70.7; POTASSIUM 3.8 mmol/L (3.5-5.1)
[2017-05-01 06:10] LABS: CHOLESTEROL/HDL RATIO 2.9
[2017-05-01 07:00] VITALS: BP 124/70
[2017-05-01] MEDS: PANTOPRAZOLE 40 MG TABLET.DR. PO SCH ×2 (07:57→15:54)
[2017-05-01] MEDS: METOCLOPRAMIDE 10 MG TABLET. PO SCH ×2 (07:57→15:54)
[2017-05-01] MEDS: ASPIRIN ENTERIC COATED 81 MG TABLET.DR. PO SCH (07:57)
[2017-05-01] MEDS: levETIRAcetam 500 MG TABLET PO SCH ×2 (07:58→21:07)
[2017-05-01] MEDS: MULTIVITAMIN with MINERAL TABLET. PO SCH (07:58)
[2017-05-01] MEDS: PIOGLITAZONE 15 MG TABLET. PO SCH (07:59)
[2017-05-01] MEDS: CYANOCOBALAMIN (VITAMIN B-12) 1,000 MCG TABLET. PO SCH (07:59)
[2017-05-01] MEDS: ONDANSETRON ODT 4 MG TAB.RAPDIS. PO SCH ×3 (07:59→15:58)
[2017-05-01] MEDS: LOSARTAN POTASSIUM 50 MG TABLET. PO SCH ×2 (08:00→09:00)
[2017-05-01] MEDS: METOPROLOL TART IMMED RELEASE 50 MG TABLET. PO SCH ×2 (08:00→21:08)
[2017-05-01] MEDS: amLODIPine BESYLATE 10 MG TABLET PO SCH (08:01)
[2017-05-01] MEDS: CLOPIDOGREL BISULFATE 75 MG TABLET PO SCH (08:05)
[2017-05-01] MEDS: LORazepam 1 MG TABLET PO PRN ×3 (08:05→23:10)
[2017-05-01] MEDS: hydrALAZINE 25 MG TABLET PO SCH ×3 (08:06→21:00)
[2017-05-01] MEDS: INSULIN ASPART 300 UNITS/3 ML INSULN.PEN SQ SCH ×3 (08:20→16:08)
[2017-05-01] MEDS ORDERED: fentaNYL 25MCG/HR PATCH 1 PATCH PATCH.TD72 TD SCH (09:00)
[2017-05-01] MEDS ORDERED: ISOSORBIDE MONONITRATE ER 30 MG TAB.ER.24H PO SCH (09:00)
--- NOTE | 2017-05-01 10:08 | ACF ---
Admit Criteria Forms Admit Criteria Forms Admit Criteria Forms CARDIOLOGY GRG Clinical Indications for Admission to Inpatient Care ( [place]ley/check or initial the applicable condition/criteria) Hospital admission is needed for appropriate care of the patient because of ANY ONE of the following: [ ] I. Hemodynamic instability as indicated by ALL of the following (1)(2)(3) (4)(5)(6)(7)(8)(9)(10) [ ]a) Vital sign abnormality not readily corrected by appropriate treatment with 12-24 hours for ANY ONE: [ ]i) Hypotension that persists despite appropriate treatment (eg, volume repletion) [ ]ii) Tachycardiathat persists despite appropriate tx ( e.g., analgesia, fluids, sedation as indicated [ ]iii) Orthostatic vital sign changes that persists despite appropriate treatment (eg, volume repletion) [ ]b) Vital sign abnormailty that is severe indicated by ANY ONE of the following: [ ]i) Inadequate perfusion indicated by ANY ONE of the following: [ ] 1) Lactic acidosis (> 2 mmol/L) [ ] 2) New abnormal capillary refill (> 3 seconds) [ ] 3) Reduced urine output [ ] 4) New altered mental status [ ] 5) Myocardial Ischemia [ ] 6) Other metabolic acidosis (arterial pH <7.35 ) not otherwise explained. [ ]ii) Mean arterial pressure[A] less than 60 mm Hg [ ]iii) Mean arterial pressure[A] less than 70 mm Hg after 30 minutes of appropriate treatment (eg, fluid resuscitation) [ ]iv) Sustained heart rate greater than 120 beats per minute in adult or child 6 years or older[B] [ ]v) IV inotropic or vasopressor medication required to maintain adequate blood pressure or perfusion [ ] II. Severe heart failure as indicated by ANY ONE of the following(17)(18) [ ]a) Respiratory distress [ ]b) Hypotension [ ]c) Debilitating anasarca refractory to therapy (eg, tissue breakdown with infection)[C](19) [ ]d) Cardiac arrhythmias of immediate concern [ ]e) Myocardial ischemia [ ] III. Cardiac arrhythmias or findings of immediate concern indicated by ANY ONE of the following (21)(22): [ ] a) Heart rhythms that are inherently dangerous or unstable indicated by ANY ONE of the following (23)(24)(25): [ ] i) Resuscitated ventricular fibrillation or cardiac arrest [ ] ii) Ventricular escape rhythm [ ] iii) Sustained ventricular tachycardia (30 seconds or more of ventricular rhythm at greater than 100 beats per minute) [ ] iv) Nonsustained ventricular tachycardia and ANY ONE of the following: [ ] 1) Suspected cardiac ischemia as cause or consequence of ventricular tachycardia [ ] 2) Acute myocarditis [ ] b) Unstable cardiac conduction defects indicated by ANY ONE of the following(25)(26)(27) [ ] i) Type II second-degree atrioventricular block [ ]ii) Third-degree atrioventricular block [ ]iii) New-onset left bundle branch block with suspected myocardial ischemia [ ]c) Any heart rhythm and ANY ONE of the following (23)(24)(28)(29) (30) [ ] i) Continuous long-term ECG monitoring needed (e.g., initiation of drug requiring monitoring for more than 24 hours) [ ] ii) Patient has automatic implanted cardioverter defibrillator that is repeatedly firing, malfunctioning, or in need of immediate adjustment of settings beyond the scope of ambulatory or observation care [ ]d) Heart rhythms of concern due to ANY ONE of the following: [ ] i) Hypotension [ ] ii) Respiratory distress [ ] iii) Association with other significant symptoms (e.g., bradycardia with syncope or ongoing dizziness, supraventricular tachycardia with chest pain (28)(29)(31) [ ] IV. Monitoring for cardiac contusion beyond the scope of observation care needed [A](32)(33)(34) [ ] V. Surgical or device complication (e.g., valve replacement complication , ICD disfunction or pacemaker dysfunction) (49)(50)(51)(52)(53)(54) [ ] . Inpatient palliative care needed. [F](51)(52) Also use Inpatient Palliative Care Criteria [ ] VII. Nonbacterial thrombotic (marantic) endocarditis(43)(44)(55)(56)(57) [X ] VIII. Cardiology condition, symptom, or finding for which emergency and observation care has failed or are not considered appropriate. [ ] IX. Acute valvular disease requiring inpatient as indicated by ANY ONE of the following (40)(41) [ ]a) Acute valvular regurgitation (42) [ ]b) Noninfectious valvulitis (43)(44) [ ]c) Obstructive valve thrombosis (45)(46) [ ]d) Paravalvular leak(47)(48) [ ]e) Other significant valvular disorder remaining after emergency or observation level of care (as appropriate) [ ]X. Pericardial disease requiring inpatient treatment as indicated by ANY ONE of the following (35)(36)(37)(38) [ ]a) Suspected tamponade [ ]b) Hemopericardium [ ]c) Other significant pericardial disorder remaining after emergency or observation level of care (as appropriate)(39) [ ] XI. Cardiac ischemia beyond scope of emergency and observation care. [ ] XII. Cyanotic heart disease requiring inpatient care as indicated by 1 or more of the following(58)(59)(60): [ ]a) Acute onset of hypoxemia [ ]b) Exacerbation [ ] XIII. Hypertension requiring inpatient treatment as indicated by ANYONE of the following(11)(12)(13)(14): [ ]a) Severe hypertension (SBP greater than 180 mm Hg or DBP greater than 110 mm Hg, or greater than the 95th percentile for age, gender, and height in pediatric patients) that cannot be controlled (eg, to SBP less than 160 mm Hg and DBP less than 100 mm Hg) by emergency department or observation care treatment(15) [ ]b) Acute end organ damage secondary to hypertension (SBP greater than 140 mm Hg or DBP greater than 90 mm Hg) as indicated by ANYONE of the following: [ ] i) Hypertensive encephalopathy (eg, Altered mental status)(16) [ ] ii) Cerebral infarction [ ] iii) Intracranial hemorrhage [ ] iv) Myocardial ischemia or infarction [ ] v) Heart failure (eg, pulmonary edema) [ ] vi) Aortic dissection [ ] vii) Increased creatinine (new) with reduction of more than 50% in estimated glomerular filtration rate from baseline [ ] viii) Papilledema [ ] ix) Retinal hemorrhage [ ] x) Microangiopathic hemolytic anemia [ ] xi) Seizure [ ] xii) Other significant finding secondary to hypertension [ ] XIV. Complications of transplanted heart indicated by ANY ONE of the following(61): [ ]a) Acute graft rejection requiring inpatient management (eg, intravenous imunosuppression)(62)(63) [ ]b) Acute graft heart failure indicated by ANY ONE of the following(64): [ ] i) Hemodynamic instability [ ] ii) Cardiac arrhythmias of immediate concern [ ] iii) Pulmonary edema that is very severe (eg, mechanical ventilation needed, imminent or likely, need for 100% oxygen to keep oxygen saturation above 90%) [ ] iv) Pulmonary edema that is persistent as indicated by ALL of the following: [ ] 1) New need for oxygen therapy to keep oxygen saturation above 90 % (or increased FiO2 need from baseline) [ ] 2) Has not improved sufficiently with emergency department or observation care IV diuretics or other heart failure treatments[E]. [ ] iv) Altered mental status that is severe or persistent [ ] iv) Increased creatinine (new on laboratory test) with reduction of more than 50% in estimated glomerular filtration rate from baseline [ ] iv) Progressively (ongoing) rising creatinine (known from past laboratory test) with reduction of more than 25% in estimated glomerular filtration rate from baseline [ ] iv) Acute renal failure [ ] iv) Acute peripheral ischemia (eg, examination shows pulseless, cool, mottled, or cyanotic extremity) [ ] iv) Pulmonary artery catheter monitoring needed [ ] iv) Other sign or symptom of heart failure requiring inpatient treatment (ie, too severe or not responsive to outpatient and observation care treatment) [ ]c) Infection requiring inpatient management (eg, Hemodynamic instability, need for intravenous antimicrobial treatment)(66)(67)(68)(69)(70) [ ]d) Cardiac allograft vasculopathy requiring inpatient management (eg evidence of cardiacischemia)(71) [ ]e) Other complication of transplanted heart (eg, stroke, severe pulmonary hypertension, severe valvular dysfunction) requiring inpatient management(72) The original [employer] content created by [employer] has been revised. The portions of the content which have been revised are identified through the use of italic text, and [facility] has neither reviewed nor approved the modified material. All other unmodified content is copyright [employer]. Please see references footnoted in the original [employer] edition 2014 YANDEL DELACRUZ May 01, 2017 10:08
[2017-05-01 10:43] VITALS: BP 126/74
--- NOTE | 2017-05-01 11:22 | CONS ---
DATE OF CONSULTATION: HISTORY OF PRESENT ILLNESS: This is a 71-year-old white female who came into the hospital with chest pain. She was working with her to repair the broken drainage system in her house. She then started to have chest pain. The chest pain did not subside. She then came into the Emergency Room. She says she has been having chest discomfort and shortness of breath with minimal exertion. She is not able to do some of the things that she would like to do at home. She is not able to go grocery shopping because of these symptoms. She has to just sit in a chair which does not cause her to have chest discomfort or shortness of breath, but she does not like that. She has had coronary artery disease. She underwent open heart surgery in 2002. When I first saw her in 2013, she had the stent placed in the OM branch. She did well thereafter. I last saw her in November of this year when she came in with chest discomfort. She had a myocardial perfusion imaging study, which showed a scar over the apex and ischemia over the anterior wall. She then underwent coronary arteriograms by Dr. Allen. The findings were as follows: The left main trunk was normal. The LAD was totally occluded after 60% obstruction and then an 80% obstruction. The LAD thereafter was very stringy vessel. The first diagonal branch was a fairly large vessel with patent graft. The [place] to the LAD was patent. The right coronary artery was patent. There were stents there. There were moderate sized posterior descending and posterolateral branches that had no significant disease. The circumflex coronary artery had a large OM branch with a patent stent. Thus, at that time, she had patent grafts with [place] to the LAD and the vein graft to the diagonal. She had patent stents in right coronary artery and circumflex coronary artery. However, the LAD itself was very small and stringy. No intervention was carried out at that time since it was felt that any intervention would not be possible and would not be beneficial. She was sent home. Recently, Dr. Masters added Imdur at a dosage of 60 mg per day. The patient says that she still continues to have chest discomfort and shortness of breath with exertion. She has diabetes mellitus. She has dyslipidemia. MEDICATIONS: Present medications are: 1. Atorvastatin 10 mg a day. 2. Plavix 75 mg a day. 3. Colestipol 1 gram a day. 4. Fentanyl patches. 5. NovoLog. 6. Levemir. 7. Lorazepam. 8. Toprol-XL 50 mg a day. 9. Protonix 40 mg a day. 10. Valsartan mg a day. She is also bothered with right ankle for which she had several surgeries, but it continues to have pain. She developed a new left hip pain. Thus walking is an effort not only because of her cardiac condition, but also because of her ankle and hip pain. PHYSICAL EXAMINATION: GENERAL: She was in no acute distress. She had no discomfort and was feeling well, lying down. LUNGS: Clear. HEART: The heart sounds are normal with no murmur or gallop. EXTREMITIES: There is no edema. An EKG showed a sinus rhythm and minimal nonspecific ST-T wave changes. The chest x-ray was normal. The hemoglobin was 13.6. The sodium was 142, potassium 3.5, BUN was 20, creatinine was 1.1. The initial troponin was negative. The BNP was not significantly elevated to 209. The blood sugars are acceptable. IMPRESSION: 1. Severe coronary artery disease. 2. Incomplete revascularization. 3. Diabetes mellitus. 4. Dyslipidemia. 5. Severe left ankle pain. 6. Severe osteoarthritis of the left hip. 7. Continued pain in the right ankle after fracture. PLAN: This patient does have LAD disease that has not and could not be revascularized. The following options available. 1. Consider dilating and stenting the proximal LAD just to see if it would help. I would need to review her coronary arteriograms again to see if it is even worth trying. 2. Add medical treatment ranolazine. This may or may not help. I personally have not found it to be very helpful. It is certainly very expensive and I am not sure if her insurance would pay. 3. She is considering doing more exercise with water aerobics. The exercise could build up collaterals. 4. Consider EECP (enhanced external counterpulsation). In my experience, this has helped and her insurance should pay for it. We will check her lipid levels tomorrow. We would need to work towards keeping her LDL cholesterol below 70. We will discuss with Dr. Masters. Thank you, Dr. Masters for asking me to see her. AIYANA HARRINGTON MD DR: Samuel JOB#: [id number] / [id number]
[2017-05-01 14:50] VITALS: BP 121/77
[2017-05-01] MEDS ORDERED: SENNOSIDES 8.6 MG TABLET PO PRN (15:45)
--- NOTE | 2017-05-01 16:46 | PDOC ---
PROGRESS NOTES Subjective Subjective feels better. has some exertional chest pain. cardiac enzymes neg times 3.discussed with dr. jordan. patient seen earlier today. Objective Objective Vital Signs Date Time Temp Pulse Resp B/P (MAP) Pulse Ox O2 Delivery O2 Flow Rate FiO2 05/01/17 14:50 97.7 68 18 121/77 (92) 97 Room Air 97.7 Intake and Output 05/02/17 07:00 Intake Total 600 ml Balance 600 ml Intake Oral 600 ml Physical Exam Abdomen: Soft Heart: Regular rate, Normal S1, Normal S2 Extremities: No edema General: Alert HEENT: Atraumatic Lungs: Clear to auscultation Neuro: Normal speech Psych/Mental Status: Mental status NL Skin: No rashes Assessment Assessment Problems Medical Problems:1. Chest pain. possible angina 2. Coronary artery disease with previous coronary artery bypass graft surgery and previous coronary artery angioplasty and stents. 3. 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 4. Hypertension. 5. Hyperlipidemia. (1) CAD (coronary artery disease) Status: Acute (2) Chest pain Status: Acute Plan Plan of Care increase imdur continue metoprolol continue amlodipine and losartan continue actos and insulin Comment Review of Relevant I have reviewed the following items maldonado (where applicable) has been applied. Labs Laboratory Tests Test 04/30/17 14:50 04/30/17 16:48 04/30/17 20:13 04/30/17 22:00 White Blood Count 8.0 x10^3/uL (4.0-11.0) Red Blood Count 4.31 x10^6/uL (3.50-5.40) Hemoglobin 13.6 g/dL (12.0-15.5) Hematocrit 39.9 % (36.0-47.0) Mean Corpuscular Volume 93 fL (79-100) Mean Corpuscular Hemoglobin 32 pg (25-35) Mean Corpuscular Hemoglobin Concent 34 g/dL (31-37) Red Cell Distribution Width 13.4 % (11.5-14.5) Platelet Count 341 x10^3/uL (140-400) Neutrophils (%) (Auto) 64 % (31-73) Lymphocytes (%) (Auto) 25 % (24-48) Monocytes (%) (Auto) 9 % (0-9) Eosinophils (%) (Auto) 1 % (0-3) Basophils (%) (Auto) 1 % (0-3) Neutrophils # (Auto) 5.1 x10^3uL (1.8-7.7) Lymphocytes # (Auto) 2.0 x10^3/uL (1.0-4.8) Monocytes # (Auto) 0.7 x10^3/uL (0.0-1.1) Eosinophils # (Auto) 0.0 x10^3/uL (0.0-0.7) Basophils # (Auto) 0.1 x10^3/uL (0.0-0.2) Sodium Level 142 mmol/L (136-145) Potassium Level 3.5 mmol/L (3.5-5.1) Chloride Level 104 mmol/L (98-107) Carbon Dioxide Level 24 mmol/L (21-32) Anion Gap 14 (6-14) Blood Urea Nitrogen 20 mg/dL (7-20) Creatinine 1.1 mg/dL (0.6-1.0) Estimated GFR (Cockcroft-Gault) 49.0 Glucose Level 194 mg/dL (70-99) Calcium Level 9.5 mg/dL (8.5-10.1) Total Bilirubin 0.4 mg/dL (0.2-1.0) Direct Bilirubin 0.1 mg/dL (0.0-0.2) Aspartate Amino Transf (AST/SGOT) 20 U/L (15-37) Alanine Aminotransferase (ALT/SGPT) 33 U/L (14-59) Alkaline Phosphatase 139 U/L (46-116) Troponin I Quantitative < 0.017 ng/mL (0.000-0.055) < 0.017 ng/mL (0.000-0.055) TQ-Uwg-F-Type Natriuretic Peptide 209 pg/mL (0-124) Total Protein 7.9 g/dL (6.4-8.2) Albumin 4.6 g/dL (3.4-5.0) Lipase 352 U/L (73-393) Glucose (Fingerstick) 147 mg/dL (70-99) 146 mg/dL (70-99) Test 05/01/17 04:00 05/01/17 06:54 05/01/17 10:33 05/01/17 16:03 White Blood Count 6.7 x10^3/uL (4.0-11.0) Red Blood Count 4.04 x10^6/uL (3.50-5.40) Hemoglobin 12.7 g/dL (12.0-15.5) Hematocrit 37.4 % (36.0-47.0) Mean Corpuscular Volume 92 fL (79-100) Mean Corpuscular Hemoglobin 32 pg (25-35) Mean Corpuscular Hemoglobin Concent 34 g/dL (31-37) Red Cell Distribution Width 13.2 % (11.5-14.5) Platelet Count 312 x10^3/uL (140-400) Neutrophils (%) (Auto) 57 % (31-73) Lymphocytes (%) (Auto) 32 % (24-48) Monocytes (%) (Auto) 9 % (0-9) Eosinophils (%) (Auto) 2 % (0-3) Basophils (%) (Auto) 1 % (0-3) Neutrophils # (Auto) 3.8 x10^3uL (1.8-7.7) Lymphocytes # (Auto) 2.1 x10^3/uL (1.0-4.8) Monocytes # (Auto) 0.6 x10^3/uL (0.0-1.1) Eosinophils # (Auto) 0.1 x10^3/uL (0.0-0.7) Basophils # (Auto) 0.1 x10^3/uL (0.0-0.2) Sodium Level 143 mmol/L (136-145) Potassium Level 3.8 mmol/L (3.5-5.1) Chloride Level 107 mmol/L (98-107) Carbon Dioxide Level 24 mmol/L (21-32) Anion Gap 12 (6-14) Blood Urea Nitrogen 17 mg/dL (7-20) Creatinine 0.8 mg/dL (0.6-1.0) Estimated GFR (Cockcroft-Gault) 70.7 Glucose Level 122 mg/dL (70-99) Calcium Level 9.3 mg/dL (8.5-10.1) Troponin I Quantitative < 0.017 ng/mL (0.000-0.055) Triglycerides Level 183 mg/dL (0-150) Cholesterol Level 137 mg/dL (0-200) LDL Cholesterol, Calculated 53 mg/dL (0-100) VLDL Cholesterol, Calculated 37 mg/dL (0-40) Non-HDL Cholesterol Calculated 90 mg/dL (0-129) HDL Cholesterol 47 mg/dL (40-60) Cholesterol/HDL Ratio 2.9 Glucose (Fingerstick) 136 mg/dL (70-99) 140 mg/dL (70-99) 184 mg/dL (70-99) Laboratory Tests Test 04/30/17 16:48 04/30/17 20:13 04/30/17 22:00 05/01/17 04:00 Glucose (Fingerstick) 147 mg/dL (70-99) 146 mg/dL (70-99) Troponin I Quantitative < 0.017 ng/mL (0.000-0.055) < 0.017 ng/mL (0.000-0.055) White Blood Count 6.7 x10^3/uL (4.0-11.0) Red Blood Count 4.04 x10^6/uL (3.50-5.40) Hemoglobin 12.7 g/dL (12.0-15.5) Hematocrit 37.4 % (36.0-47.0) Mean Corpuscular Volume 92 fL (79-100) Mean Corpuscular Hemoglobin 32 pg (25-35) Mean Corpuscular Hemoglobin Concent 34 g/dL (31-37) Red Cell Distribution Width 13.2 % (11.5-14.5) Platelet Count 312 x10^3/uL (140-400) Neutrophils (%) (Auto) 57 % (31-73) Lymphocytes (%) (Auto) 32 % (24-48) Monocytes (%) (Auto) 9 % (0-9) Eosinophils (%) (Auto) 2 % (0-3) Basophils (%) (Auto) 1 % (0-3) Neutrophils # (Auto) 3.8 x10^3uL (1.8-7.7) Lymphocytes # (Auto) 2.1 x10^3/uL (1.0-4.8) Monocytes # (Auto) 0.6 x10^3/uL (0.0-1.1) Eosinophils # (Auto) 0.1 x10^3/uL (0.0-0.7) Basophils # (Auto) 0.1 x10^3/uL (0.0-0.2) Sodium Level 143 mmol/L (136-145) Potassium Level 3.8 mmol/L (3.5-5.1) Chloride Level 107 mmol/L (98-107) Carbon Dioxide Level 24 mmol/L (21-32) Anion Gap 12 (6-14) Blood Urea Nitrogen 17 mg/dL (7-20) Creatinine 0.8 mg/dL (0.6-1.0) Estimated GFR (Cockcroft-Gault) 70.7 Glucose Level 122 mg/dL (70-99) Calcium Level 9.3 mg/dL (8.5-10.1) Triglycerides Level 183 mg/dL (0-150) Cholesterol Level 137 mg/dL (0-200) LDL Cholesterol, Calculated 53 mg/dL (0-100) VLDL Cholesterol, Calculated 37 mg/dL (0-40) Non-HDL Cholesterol Calculated 90 mg/dL (0-129) HDL Cholesterol 47 mg/dL (40-60) Cholesterol/HDL Ratio 2.9 Test 05/01/17 06:54 05/01/17 10:33 05/01/17 16:03 Glucose (Fingerstick) 136 mg/dL (70-99) 140 mg/dL (70-99) 184 mg/dL (70-99) Medications Current Medications Hydromorphone HCl (Dilaudid) 0.5 mg PRN Q30MIN PRN IV SEVERE PAIN Last administered on 04/30/17 15:15; Start 04/30/17 at 15:00 Ondansetron HCl (Zofran) 4 mg 1X ONCE IV Last administered on 04/30/17 15:15 ; Start 04/30/17 at 15:00; Stop 04/30/17 at 15:02; Status DC Ondansetron HCl (Zofran) 4 mg PRN Q8HRS PRN IV NAUSEA/VOMITING Last administered on 05/01/17 04:12; Start 04/30/17 at 16:00; Stop 05/01/17 at 15:59 ; Status DC Morphine Sulfate 2 mg PRN Q2HR PRN IV MODERATE PAIN Last administered on 14:13; Start 04/30/17 at 16:15 Sodium Chloride 1,000 ml @ 85 mls/hr [id number] IV Last administered on 15:58; Start 04/30/17 at 15:58; Stop 05/01/17 at 15:57; Status DC Acetaminophen (Tylenol) 650 mg PRN Q6HRS PRN PO MILD PAIN / TEMP; Start at 16:30 Pioglitazone HCl (Actos) 45 mg DAILY PO Last administered on 05/01/17 07:59; Start 05/01/17 at 09:00 Amlodipine Besylate (Norvasc) 10 mg DAILY PO Last administered on 05/01/17 08: 01; Start 05/01/17 at 09:00 Aspirin (Ecotrin) 81 mg DAILYWBKFT PO Last administered on 05/01/17 07:57; Start 05/01/17 at 08:00 Atorvastatin Calcium (Lipitor) 80 mg QHS PO Last administered on 04/30/17 20: 02; Start 04/30/17 at 21:00 Fentanyl (Duragesic 25mcg/ Hr Patch) 1 patch Q3DAYS TD Last administered on 08:02; Start 05/01/17 at 09:00 Hydralazine HCl (Apresoline) 25 mg TID PO Last administered on 05/01/17 14:13 ; Start 04/30/17 at 21:00 Isosorbide Mononitrate (Imdur) 60 mg DAILY PO Last administered on 05/01/17 07 :58; Start 05/01/17 at 09:00 Levetiracetam (Keppra) 750 mg BID PO Last administered on 05/01/17 07:58; Start 04/30/17 at 21:00 Insulin Detemir (Levemir) 4 units QHS SQ Last administered on 04/30/17 20:21; Start 04/30/17 at 21:00 Insulin Aspart (NovoLOG) 4 units TIDAC SQ Last administered on 05/01/17 16:08 ; Start 04/30/17 at 17:30 Lorazepam (Ativan) 1 mg PRN TID PRN PO ANXIETY / AGITATION Last administered on 05/01/17 14:13; Start 04/30/17 at 16:30 Metoclopramide HCl (Reglan) 10 mg BIDWMEALS PO Last administered on 05/01/17 15:54; Start 04/30/17 at 17:00 Metoprolol Tartrate (Lopressor) 50 mg BID PO Last administered on 05/01/17 08: 00; Start 04/30/17 at 21:00 Multivitamins (Thera M Plus) 1 tab DAILY PO Last administered on 05/01/17 07: 58; Start 05/01/17 at 09:00 Nitroglycerin (Nitrostat) 0.4 mg PRN Q5MIN PRN SL CHEST PAIN; Start 04/30/17 at 16:30 Oxycodone HCl (Roxicodone) 10 mg PRN TID PRN PO PAIN Last administered on 11:21; Start 04/30/17 at 16:30 Pantoprazole Sodium (Protonix) 40 mg BIDAC PO Last administered on 05/01/17 15 :54; Start 04/30/17 at 17:30 Losartan Potassium (Cozaar) 100 mg DAILY PO Last administered on 05/01/17 08: 00; Start 05/01/17 at 09:00 Cyanocobalamin (Vitamin B-12) 1,000 mcg DAILY PO Last administered on 07:59; Start 05/01/17 at 09:00 Ondansetron HCl (Zofran Odt) 4 mg TIDAC PO Last administered on 05/01/17 15:58 ; Start 04/30/17 at 17:30 Zolpidem Tartrate (Ambien) 5 mg PRN QHS PRN PO INSOMNIA Last administered on 23:26; Start 04/30/17 at 16:30 Al Hydroxide/Mg Hydroxide (Mylanta Plus Xs) 30 ml PRN Q2HR PRN PO HEARTBURN / GAS; Start 04/30/17 at 16:30 Clopidogrel Bisulfate (Plavix) 75 mg DAILYWBKFT PO Last administered on 08:05; Start 05/01/17 at 08:00 Cyclobenzaprine HCl (Flexeril) 10 mg QHS PO Last administered on 04/30/17 20: 03; Start 04/30/17 at 21:00 Sennosides (Senna) 17.2 mg PRN BID PRN PO CONSTIPATION Last administered on 9/ 20/17at 15:54; Start 05/01/17 at 15:45 Active Scripts Active FENTANYL 25mcg/hr (Fentanyl) 1 Each Patch.td72 1 Patch TP Q3DAYS Oxycodone Hcl 5 Mg Tablet 5 Mg PO Q6HRS PRN [Pioglitazone Hcl] 15 MG Tablet 45 Mg PO DAILY Lorazepam 1 Mg Tablet 1 Mg PO PRN TID PRN Atorvastatin Calcium 10 Mg Tablet 40 Mg PO QHS Pantoprazole Sodium 40 Mg Tablet.dr 40 Mg PO BIDAC Metoclopramide Hcl 10 Mg Tablet 10 Mg PO QIDACHS Levemir Flextouch (Insulin Detemir) 100 Unit/1 Ml Insuln.pen 4 Units SQ QHS Ondansetron Odt (Ondansetron) 4 Mg Tab.rapdis 4 Mg PO TIDAC Novolog Flexpen (Insulin Aspart) 100 Unit/1 Ml Insuln.pen 4 Units SQ TIDAC FENTANYL 25mcg/hr (Fentanyl) 1 Each Patch.td72 1 Patch TD Q3DAYS Reported Valsartan 320 Mg Tablet 320 Mg PO DAILY Colestipol Hcl 1 Gm Tablet 1 Gm PO BID Metoprolol Tartrate 50 Mg Tablet 50 Mg PO BID Ambien (Zolpidem Tartrate) 5 Mg Tablet 5 Mg PO HS Clopidogrel (Clopidogrel Bisulfate) 75 Mg Tablet 75 Mg PO DAILY Vitals/I & O Vital Sign - Last 24 Hours 04/30/17 04/30/17 04/30/17 04/30/17 17:11 19:00 20:00 20:02 Temp 98.0 98.0 Pulse 76 76 Resp 20 B/P (MAP) 142/74 (96) 142/74 Pulse Ox 93 O2 Delivery Room Air Room Air Room Air 04/30/17 04/30/17 04/30/17 04/30/17 20:03 20:11 23:00 23:29 Temp 97.8 97.8 Pulse 76 65 Resp 18 B/P (MAP) 142/74 148/72 (97) Pulse Ox 93 94 93 O2 Delivery Room Air Room Air Room Air 05/01/17 05/01/17 05/01/17 05/01/17 03:19 05:03 07:00 07:58 Temp 97.7 97.7 Pulse 68 65 Resp 18 B/P (MAP) 124/70 (88) 129/67 Pulse Ox 93 96 O2 Delivery Room Air Room Air Room Air 05/01/17 05/01/17 05/01/17 05/01/17 08:00 08:00 08:00 08:01 Pulse 65 65 69 B/P (MAP) 129/69 129/67 129/68 O2 Delivery Room Air 05/01/17 05/01/17 05/01/17 05/01/17 08:02 08:02 08:06 10:43 Temp 97.7 97.7 Pulse 68 69 Resp 18 B/P (MAP) 124/70 126/74 (91) Pulse Ox 96 95 95 O2 Delivery Room Air Room Air Room Air 05/01/17 05/01/17 05/01/17 05/01/17 11:21 12:02 12:21 14:13 Pulse Ox 95 95 95 95 O2 Delivery Room Air Room Air Room Air Room Air 05/01/17 05/01/17 05/01/17 14:13 14:43 14:50 Temp 97.7 97.7 Pulse 69 68 Resp 18 B/P (MAP) 126/74 121/77 (92) Pulse Ox 97 97 O2 Delivery Room Air Room Air Intake and Output 05/01/17 05/01/17 05/02/17 15:00 23:00 07:00 Intake Total 600 ml Balance 600 ml DENICE IZAGUIRRE MD May 01, 2017 16:46
[2017-05-01 19:00] VITALS: BP 110/58
[2017-05-01] MEDS: CYCLOBENZAPRINE 10 MG TABLET. PO SCH (21:05)
[2017-05-01] MEDS: ATORVASTATIN CALCIUM 40 MG TABLET. PO SCH (21:05)
[2017-05-01] MEDS: ZOLPIDEM 5 MG TABLET. PO PRN (21:07)
[2017-05-01] MEDS: INSULIN DETEMIR 300 UNITS/3 ML INSULN.PEN. SQ SCH (21:13)
[2017-05-01 23:00] VITALS: BP 110/56
[2017-05-02] MEDS: MORPHINE SULFATE 4 MG/ML DISP.SYRIN. IV PRN ×3 (01:24→09:26)
[2017-05-02 03:00] VITALS: BP 114/61
[2017-05-02 07:00] VITALS: BP 125/64
[2017-05-02] MEDS: INSULIN ASPART 300 UNITS/3 ML INSULN.PEN SQ SCH ×2 (07:30→11:57)
[2017-05-02] MEDS: PANTOPRAZOLE 40 MG TABLET.DR. PO SCH (07:44)
[2017-05-02] MEDS: ONDANSETRON ODT 4 MG TAB.RAPDIS. PO SCH ×2 (07:44→11:59)
[2017-05-02] MEDS: oxyCODONE IR 5 MG TABLET PO PRN (08:15)
[2017-05-02] MEDS: LORazepam 1 MG TABLET PO PRN (08:15)
[2017-05-02] MEDS: levETIRAcetam 500 MG TABLET PO SCH (08:16)
[2017-05-02] MEDS: MULTIVITAMIN with MINERAL TABLET. PO SCH (08:16)
[2017-05-02] MEDS: CLOPIDOGREL BISULFATE 75 MG TABLET PO SCH (08:16)
[2017-05-02] MEDS: METOCLOPRAMIDE 10 MG TABLET. PO SCH (08:17)
[2017-05-02] MEDS: PIOGLITAZONE 15 MG TABLET. PO SCH (08:17)
[2017-05-02] MEDS: ASPIRIN ENTERIC COATED 81 MG TABLET.DR. PO SCH (08:17)
[2017-05-02] MEDS: amLODIPine BESYLATE 10 MG TABLET PO SCH (08:18)
[2017-05-02] MEDS: METOPROLOL TART IMMED RELEASE 50 MG TABLET. PO SCH (08:19)
[2017-05-02] MEDS: hydrALAZINE 25 MG TABLET PO SCH (08:19)
[2017-05-02] MEDS: CYANOCOBALAMIN (VITAMIN B-12) 1,000 MCG TABLET. PO SCH (08:23)
[2017-05-02] MEDS: LOSARTAN POTASSIUM 50 MG TABLET. PO SCH (08:24)
[2017-05-02] MEDS ORDERED: ISOSORBIDE MONONITRATE ER 30 MG TAB.ER.24H PO SCH (09:00)
--- NOTE | 2017-05-02 09:12 | CARD ---
APPROVED REPORT EXAM: Two-dimensional and M-mode echocardiogram with Doppler and color Doppler. Other Information Quality : Average Rhythm : NSR INDICATION Chest Pain 2D DIMENSIONS RVDd3.5 (2.9-3.5cm)Left Atrium(2D)4.5 (1.6-4.0cm) IVSd1.1 (0.7-1.1cm)Aortic Root(2D)2.8 (2.0-3.7cm) LVDd4.8 (3.9-5.9cm)LVOT Diameter2.1 (1.8-2.4cm) PWd1.1 (0.7-1.1cm)LVDs3.0 (2.5-4.0cm) FS (%) 30.9 %SV72.2 ml LVEF(%)60.7 (>50%) Aortic Valve AoV Peak Gregory.156.4cm/sAoV VTI28.7cm AO Peak GR.9.8mmHgLVOT Peak Gregory.86.8cm/s LVOT VTI 19.08cmAO Mean GR.6mmHg GAGAN (VTI)2.20cm2 Mitral Valve MV E Alepmfvu86.0cm/sMV DECEL [id number] MV A Pujyvstk490.1cm/sMV E Mean Gr.1mmHg MV [id number]/A Ratio0.6 MV A [id number] (PHT)2.54cm2 TDI E/Lateral E'10.9E/Medial E'13.3 Pulmonary Valve PV Peak Wmrxmnvj366.6cm/sPV Peak Grad.6mmHg RVOT VTI19.5cm Tricuspid Valve TR P. [id number]/sRAP [id number] TR Peak Gr.61cnPrQAEZ31xvIc LEFT VENTRICLE The left ventricle is normal size. There is normal left ventricular wall thickness. Left ventricle sy stolic function is normal. The Ejection Fraction is 55-60%. Tissue Doppler imaging reveals mild left ventricular diastolic dysfunction. Transmitral Doppler flow pattern is Grade I-abnormal relaxation pa ttern. There is no ventricular septal defect visualized. RIGHT VENTRICLE The right ventricle is normal size. The right ventricular systolic function is normal. ATRIA The left atrium is mildly dilated. The right atrium size is normal. The interatrial septum is intact with no evidence for an atrial septal defect or patent foramen ovale as noted on 2-D or Doppler imagi ng. AORTIC VALVE The aortic valve is mildly calcified. The aortic valve is trileaflet. Doppler and Color Flow revealed no significant aortic regurgitation. There is no significant aortic valvular stenosis. MITRAL VALVE Mitral annular calcification is mild. The mitral valve leaflets are thickened and calcified. There is no evidence of mitral valve prolapse. There is no mitral valve stenosis. Doppler and Color Flow reve aled no mitral valve regurgitation noted. TRICUSPID VALVE The tricuspid valve is not well visualized. Doppler and Color Flow revealed trace tricuspid regurgita tion. The PA pressure was estimated at 23 mmHg. There is no tricuspid valve stenosis. PULMONIC VALVE The pulmonic valve is not well visualized. Doppler and Color Flow revealed no pulmonic valvular regur gitation. There is no pulmonic valvular stenosis. GREAT VESSELS The aortic root is normal in size. The ascending aorta is normal in size. Normal pulmonary venous marlys w (Doppler). The IVC is normal in size and collapses >50% with inspiration. PERICARDIAL EFFUSION There is no evidence of significant pericardial effusion. Critical Notification Critical Value: No <Conclusion> The left ventricle is normal size. There is normal left ventricular wall thickness. There is mild hypo kinesis of the apex. The overall ejection fraction is about 50%. There is a grade 1 diastolic dysfunction. The left atrium is mildly enlarged. There is no mitral stenosis or regurgitation. Aortic valve is tricuspid. There is no aortic stenosis or regurgitation. Right ventricle is of a normal size with normal systolic function. There is mild tricuspid regurgitation. Right ventricular systolic pressure is 23 mmHg is normal. There is a trace pulmonic regurgitation.
[2017-05-02 10:52] VITALS: BP 94/50
--- NOTE | 2017-05-02 11:21 | PDOC ---
PROGRESS NOTES Subjective Subjective denies chest pain or shortness of breath. blood sugars okay.; lab reviewed.k blood pressure on low side this morning but walking without dizziness echo reviewed. Objective Objective Vital Signs Date Time Temp Pulse Resp B/P (MAP) Pulse Ox O2 Delivery O2 Flow Rate FiO2 05/02/17 10:52 98.4 64 20 94/50 (65) 91 Room Air 98.4 Intake and Output 05/03/17 07:00 Intake Total 180 ml Balance 180 ml Intake Oral 180 ml Physical Exam Abdomen: Soft Heart: Regular rate, Normal S1, Normal S2 Extremities: No edema General: Alert HEENT: Atraumatic Lungs: Clear to auscultation Neuro: Normal speech Psych/Mental Status: Mental status NL Skin: No rashes Assessment Assessment Problems1. Chest pain. possible angina 2. Coronary artery disease with previous coronary artery bypass graft surgery and previous coronary artery angioplasty and stents. 3. 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 4. Hypertension. 5. Hyperlipidemia. Medical Problems: (1) CAD (coronary artery disease) Status: Acute (2) Chest pain Status: Acute Plan Plan of Care decrease amlodipine decrease losartan d/c hydralazine continue metoprolol and imdur dismiss today Comment Review of Relevant I have reviewed the following items maldonado (where applicable) has been applied. Labs Laboratory Tests Test 04/30/17 14:50 04/30/17 16:48 04/30/17 20:13 04/30/17 22:00 White Blood Count 8.0 x10^3/uL (4.0-11.0) Red Blood Count 4.31 x10^6/uL (3.50-5.40) Hemoglobin 13.6 g/dL (12.0-15.5) Hematocrit 39.9 % (36.0-47.0) Mean Corpuscular Volume 93 fL (79-100) Mean Corpuscular Hemoglobin 32 pg (25-35) Mean Corpuscular Hemoglobin Concent 34 g/dL (31-37) Red Cell Distribution Width 13.4 % (11.5-14.5) Platelet Count 341 x10^3/uL (140-400) Neutrophils (%) (Auto) 64 % (31-73) Lymphocytes (%) (Auto) 25 % (24-48) Monocytes (%) (Auto) 9 % (0-9) Eosinophils (%) (Auto) 1 % (0-3) Basophils (%) (Auto) 1 % (0-3) Neutrophils # (Auto) 5.1 x10^3uL (1.8-7.7) Lymphocytes # (Auto) 2.0 x10^3/uL (1.0-4.8) Monocytes # (Auto) 0.7 x10^3/uL (0.0-1.1) Eosinophils # (Auto) 0.0 x10^3/uL (0.0-0.7) Basophils # (Auto) 0.1 x10^3/uL (0.0-0.2) Sodium Level 142 mmol/L (136-145) Potassium Level 3.5 mmol/L (3.5-5.1) Chloride Level 104 mmol/L (98-107) Carbon Dioxide Level 24 mmol/L (21-32) Anion Gap 14 (6-14) Blood Urea Nitrogen 20 mg/dL (7-20) Creatinine 1.1 mg/dL (0.6-1.0) Estimated GFR (Cockcroft-Gault) 49.0 Glucose Level 194 mg/dL (70-99) Calcium Level 9.5 mg/dL (8.5-10.1) Total Bilirubin 0.4 mg/dL (0.2-1.0) Direct Bilirubin 0.1 mg/dL (0.0-0.2) Aspartate Amino Transf (AST/SGOT) 20 U/L (15-37) Alanine Aminotransferase (ALT/SGPT) 33 U/L (14-59) Alkaline Phosphatase 139 U/L (46-116) Troponin I Quantitative < 0.017 ng/mL (0.000-0.055) < 0.017 ng/mL (0.000-0.055) FQ-Elg-O-Type Natriuretic Peptide 209 pg/mL (0-124) Total Protein 7.9 g/dL (6.4-8.2) Albumin 4.6 g/dL (3.4-5.0) Lipase 352 U/L (73-393) Glucose (Fingerstick) 147 mg/dL (70-99) 146 mg/dL (70-99) Test 05/01/17 04:00 05/01/17 06:54 05/01/17 10:33 05/01/17 16:03 White Blood Count 6.7 x10^3/uL (4.0-11.0) Red Blood Count 4.04 x10^6/uL (3.50-5.40) Hemoglobin 12.7 g/dL (12.0-15.5) Hematocrit 37.4 % (36.0-47.0) Mean Corpuscular Volume 92 fL (79-100) Mean Corpuscular Hemoglobin 32 pg (25-35) Mean Corpuscular Hemoglobin Concent 34 g/dL (31-37) Red Cell Distribution Width 13.2 % (11.5-14.5) Platelet Count 312 x10^3/uL (140-400) Neutrophils (%) (Auto) 57 % (31-73) Lymphocytes (%) (Auto) 32 % (24-48) Monocytes (%) (Auto) 9 % (0-9) Eosinophils (%) (Auto) 2 % (0-3) Basophils (%) (Auto) 1 % (0-3) Neutrophils # (Auto) 3.8 x10^3uL (1.8-7.7) Lymphocytes # (Auto) 2.1 x10^3/uL (1.0-4.8) Monocytes # (Auto) 0.6 x10^3/uL (0.0-1.1) Eosinophils # (Auto) 0.1 x10^3/uL (0.0-0.7) Basophils # (Auto) 0.1 x10^3/uL (0.0-0.2) Sodium Level 143 mmol/L (136-145) Potassium Level 3.8 mmol/L (3.5-5.1) Chloride Level 107 mmol/L (98-107) Carbon Dioxide Level 24 mmol/L (21-32) Anion Gap 12 (6-14) Blood Urea Nitrogen 17 mg/dL (7-20) Creatinine 0.8 mg/dL (0.6-1.0) Estimated GFR (Cockcroft-Gault) 70.7 Glucose Level 122 mg/dL (70-99) Calcium Level 9.3 mg/dL (8.5-10.1) Troponin I Quantitative < 0.017 ng/mL (0.000-0.055) Triglycerides Level 183 mg/dL (0-150) Cholesterol Level 137 mg/dL (0-200) LDL Cholesterol, Calculated 53 mg/dL (0-100) VLDL Cholesterol, Calculated 37 mg/dL (0-40) Non-HDL Cholesterol Calculated 90 mg/dL (0-129) HDL Cholesterol 47 mg/dL (40-60) Cholesterol/HDL Ratio 2.9 Glucose (Fingerstick) 136 mg/dL (70-99) 140 mg/dL (70-99) 184 mg/dL (70-99) Test 05/01/17 21:11 05/02/17 07:46 Glucose (Fingerstick) 168 mg/dL (70-99) 95 mg/dL (70-99) Laboratory Tests Test 05/01/17 16:03 05/01/17 21:11 05/02/17 07:46 Glucose (Fingerstick) 184 mg/dL (70-99) 168 mg/dL (70-99) 95 mg/dL (70-99) Medications Current Medications Hydromorphone HCl (Dilaudid) 0.5 mg PRN Q30MIN PRN IV SEVERE PAIN Last administered on 04/30/17 15:15; Start 04/30/17 at 15:00 Ondansetron HCl (Zofran) 4 mg 1X ONCE IV Last administered on 04/30/17 15:15 ; Start 04/30/17 at 15:00; Stop 04/30/17 at 15:02; Status DC Ondansetron HCl (Zofran) 4 mg PRN Q8HRS PRN IV NAUSEA/VOMITING Last administered on 05/01/17 04:12; Start 04/30/17 at 16:00; Stop 05/01/17 at 15:59 ; Status DC Morphine Sulfate 2 mg PRN Q2HR PRN IV MODERATE PAIN Last administered on 09:26; Start 04/30/17 at 16:15 Sodium Chloride 1,000 ml @ 85 mls/hr [id number] IV Last administered on 15:58; Start 04/30/17 at 15:58; Stop 05/01/17 at 15:57; Status DC Acetaminophen (Tylenol) 650 mg PRN Q6HRS PRN PO MILD PAIN / TEMP; Start at 16:30 Pioglitazone HCl (Actos) 45 mg DAILY PO Last administered on 05/02/17 08:17; Start 05/01/17 at 09:00 Amlodipine Besylate (Norvasc) 10 mg DAILY PO Last administered on 05/02/17 08: 18; Start 05/01/17 at 09:00 Aspirin (Ecotrin) 81 mg DAILYWBKFT PO Last administered on 05/02/17 08:17; Start 05/01/17 at 08:00 Atorvastatin Calcium (Lipitor) 80 mg QHS PO Last administered on 05/01/17 21: 05; Start 04/30/17 at 21:00 Fentanyl (Duragesic 25mcg/ Hr Patch) 1 patch Q3DAYS TD Last administered on 08:02; Start 05/01/17 at 09:00 Hydralazine HCl (Apresoline) 25 mg TID PO Last administered on 05/02/17 08:19 ; Start 04/30/17 at 21:00 Isosorbide Mononitrate (Imdur) 60 mg DAILY PO Last administered on 05/01/17 07 :58; Start 05/01/17 at 09:00; Stop 05/01/17 at 16:45; Status DC Levetiracetam (Keppra) 750 mg BID PO Last administered on 05/02/17 08:16; Start 04/30/17 at 21:00 Insulin Detemir (Levemir) 4 units QHS SQ Last administered on 05/01/17 21:13; Start 04/30/17 at 21:00 Insulin Aspart (NovoLOG) 4 units TIDAC SQ Last administered on 05/01/17 16:08 ; Start 04/30/17 at 17:30 Lorazepam (Ativan) 1 mg PRN TID PRN PO ANXIETY / AGITATION Last administered on 05/02/17 08:15; Start 04/30/17 at 16:30 Metoclopramide HCl (Reglan) 10 mg BIDWMEALS PO Last administered on 05/02/17 08:17; Start 04/30/17 at 17:00 Metoprolol Tartrate (Lopressor) 50 mg BID PO Last administered on 05/02/17 08: 19; Start 04/30/17 at 21:00 Multivitamins (Thera M Plus) 1 tab DAILY PO Last administered on 05/02/17 08: 16; Start 05/01/17 at 09:00 Nitroglycerin (Nitrostat) 0.4 mg PRN Q5MIN PRN SL CHEST PAIN; Start 04/30/17 at 16:30 Oxycodone HCl (Roxicodone) 10 mg PRN TID PRN PO PAIN Last administered on 08:15; Start 04/30/17 at 16:30 Pantoprazole Sodium (Protonix) 40 mg BIDAC PO Last administered on 05/02/17 07 :44; Start 04/30/17 at 17:30 Losartan Potassium (Cozaar) 100 mg DAILY PO ; Start 05/01/17 at 09:00 Cyanocobalamin (Vitamin B-12) 1,000 mcg DAILY PO Last administered on 08:23; Start 05/01/17 at 09:00 Ondansetron HCl (Zofran Odt) 4 mg TIDAC PO Last administered on 05/02/17 07:44 ; Start 04/30/17 at 17:30 Zolpidem Tartrate (Ambien) 5 mg PRN QHS PRN PO INSOMNIA Last administered on 21:07; Start 04/30/17 at 16:30 Al Hydroxide/Mg Hydroxide (Mylanta Plus Xs) 30 ml PRN Q2HR PRN PO HEARTBURN / GAS; Start 04/30/17 at 16:30 Clopidogrel Bisulfate (Plavix) 75 mg DAILYWBKFT PO Last administered on 08:16; Start 05/01/17 at 08:00 Cyclobenzaprine HCl (Flexeril) 10 mg QHS PO Last administered on 05/01/17 21: 05; Start 04/30/17 at 21:00 Sennosides (Senna) 17.2 mg PRN BID PRN PO CONSTIPATION Last administered on 15:54; Start 05/01/17 at 15:45 Isosorbide Mononitrate (Imdur) 90 mg DAILY PO Last administered on 05/02/17 08 :20; Start 05/02/17 at 09:00 Active Scripts Active FENTANYL 25mcg/hr (Fentanyl) 1 Each Patch.td72 1 Patch TP Q3DAYS Oxycodone Hcl 5 Mg Tablet 5 Mg PO Q6HRS PRN [Pioglitazone Hcl] 15 MG Tablet 45 Mg PO DAILY Lorazepam 1 Mg Tablet 1 Mg PO PRN TID PRN Atorvastatin Calcium 10 Mg Tablet 40 Mg PO QHS Pantoprazole Sodium 40 Mg Tablet.dr 40 Mg PO BIDAC Metoclopramide Hcl 10 Mg Tablet 10 Mg PO QIDACHS Levemir Flextouch (Insulin Detemir) 100 Unit/1 Ml Insuln.pen 4 Units SQ QHS Ondansetron Odt (Ondansetron) 4 Mg Tab.rapdis 4 Mg PO TIDAC Novolog Flexpen (Insulin Aspart) 100 Unit/1 Ml Insuln.pen 4 Units SQ TIDAC FENTANYL 25mcg/hr (Fentanyl) 1 Each Patch.td72 1 Patch TD Q3DAYS Reported Valsartan 320 Mg Tablet 320 Mg PO DAILY Colestipol Hcl 1 Gm Tablet 1 Gm PO BID Metoprolol Tartrate 50 Mg Tablet 50 Mg PO BID Ambien (Zolpidem Tartrate) 5 Mg Tablet 5 Mg PO HS Clopidogrel (Clopidogrel Bisulfate) 75 Mg Tablet 75 Mg PO DAILY Vitals/I & O Vital Sign - Last 24 Hours 05/01/17 05/01/17 05/01/17 05/01/17 11:21 12:02 12:21 14:13 Pulse Ox 95 95 95 95 O2 Delivery Room Air Room Air Room Air 05/01/17 05/01/17 05/01/17 05/01/17 14:13 14:50 17:29 19:00 Temp 97.7 98.9 97.7 98.9 Pulse 69 68 70 Resp 18 20 B/P (MAP) 126/74 121/77 (92) 110/58 (75) Pulse Ox 97 97 92 O2 Delivery Room Air Room Air Room Air 05/01/17 05/01/17 05/01/17 05/01/17 20:00 21:00 21:05 21:08 Pulse 67 70 B/P (MAP) 110/56 110/58 Pulse Ox 92 O2 Delivery Room Air Room Air 05/01/17 05/02/17 05/02/17 05/02/17 23:00 01:24 03:00 03:59 Temp 98.1 98.3 98.1 98.3 Pulse 67 71 Resp 20 18 B/P (MAP) 110/56 (74) 114/61 (78) Pulse Ox 92 92 98 98 O2 Delivery Room Air Room Air Room Air Room Air 05/02/17 05/02/17 05/02/17 05/02/17 04:29 07:00 08:00 08:15 Temp 98.5 98.5 Pulse 66 Resp 20 18 B/P (MAP) 125/64 (84) Pulse Ox 98 94 O2 Delivery Room Air Room Air Room Air 05/02/17 05/02/17 05/02/17 05/02/17 08:18 08:19 08:19 08:20 Pulse 66 66 66 66 B/P (MAP) 125/64 125/64 125/64 125/64 05/02/17 05/02/17 05/02/17 05/02/17 09:15 09:26 09:56 10:52 Temp 98.4 98.4 Pulse 64 Resp 20 20 18 20 B/P (MAP) 94/50 (65) Pulse Ox 91 O2 Delivery Room Air Room Air Room Air Room Air Intake and Output 05/02/17 05/02/17 05/03/17 15:00 23:00 07:00 Intake Total 180 ml Balance 180 ml DENICE IZAGUIRRE MD May 02, 2017 11:21
--- NOTE | 2017-05-02 11:24 | DISCH ---
DISCHARGE INSTRUCTIONS Activity After Discharge Activity Instructions for Disc: Resume previous activity Diet after Discharge Diet after Discharge: Cardiac, Diabetic No Calorie Level Contacting the DRMiguel after DC Call your doctor for: If your condition worsens Follow-Up Follow up with: dr. izaguirre next week DENICE IZAGUIRRE MD May 02, 2017 11:24
[2017-05-02] MEDS ORDERED: ISOS30TA4 PO (11:28)
[2017-05-02] MEDS ORDERED: AMLO5TAB2 PO (11:28)
[2017-05-02] MEDS ORDERED: ATOR40TA59 PO (11:28)
--- NOTE | 2017-05-02 11:33 | PDOC ---
Provider Note Provider Note discharge summary dictated # [id number] DENIEC IZAGUIRRE MD May 02, 2017 11:33
--- NOTE | 2017-05-02 12:20 | DS ---
DATE OF DISCHARGE: 05/02/2017 MANAGER DATA: Dr. Quigley. FINAL DIAGNOSES: 1. Chest pain secondary to angina pectoris. 2. Coronary artery disease. 3. 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 4. Hypertension. 5. Hyperlipidemia. HOSPITAL COURSE: The patient is a 71-year-old white female with a history of coronary artery disease, diabetes mellitus type 2 with diabetic gastroparesis, hypertension, hyperlipidemia, who was helping her with plumbing problems, was lifting some heavy things and developed some retrosternal chest pressure, which was recurrent, associated with some nausea and radiating to her back and then pain radiated to her back. She sought help in the [facility] Emergency Room. She was admitted to the hospital. EKG showed no acute change. Cardiac troponin levels were negative. Chest x-ray was unremarkable and the patient was seen by Dr. Quigley in consultation. An echocardiogram showed a preserved left ventricular ejection fraction without any significant valvular pathology. The patient's Imdur was increased to 90 mg every day. Blood pressure systolic was 94, but she was asymptomatic today and would be discontinued on hydralazine, decreasing the amlodipine and valsartan. We did increase her atorvastatin to 80 mg every day with her coronary artery disease. She will be dismissed to home making an appointment to see Dr. Masters in the office tomorrow as she has an appointment already. DISCHARGE MEDICATIONS: She will be dismissed on Actos 45 mg every day, amlodipine 5 mg every day, aspirin 81 mg every day, atorvastatin 80 mg every day, Flexeril 10 mg at bedtime, fentanyl 25 mcg patch every 72 hours, Imdur was increased to 90 mg every day, Keppra 750 mg b.i.d., Lantus insulin 4 units at bedtime, NovoLog 4 units before meals t.i.d., lorazepam 1 mg t.i.d. p.r.n. for anxiety, metoclopramide 10 mg b.i.d., metoprolol tartrate 50 mg b.i.d., multiple vitamin once a day, nitroglycerin 0.4 mg sublingual p.r.n., oxycodone 10 mg t.i.d. p.r.n., Plavix 75 mg every day, Protonix 40 mg every day, valsartan was decreased to 160 mg every day, vitamin B12 1000 mcg every day, Zofran 4 mg before meals t.i.d. and Ambien 5 mg at bedtime p.r.n. DENICE MASTERS MD DR: Mino JOB#: [id number] / [id number]
[2017-05-03] MEDS ORDERED: LOSARTAN POTASSIUM 50 MG TABLET. PO SCH (09:00)
[2017-05-03] MEDS ORDERED: amLODIPine BESYLATE 5 MG TABLET PO SCH (09:00)
== END 2017-05-02 13:05 | disposition home or self-care (01) | DRG 303 ==
LOC: ER 13:27 → 5 SOUTH 15:03 → OBSVTOIN 16:42
PROVIDERS: ADMIT Internal Medicine; ATTEND Internal Medicine
DX: I25.119 Atherosclerotic heart disease of native coronary artery with unspecified angina pectoris (principal); K31.84 Gastroparesis; E11.43 Type 2 diabetes mellitus with diabetic autonomic (poly)neuropathy; G40.909 Epilepsy, unspecified, not intractable, without status epilepticus; Z88.0 Allergy status to penicillin; E78.5 Hyperlipidemia, unspecified; H35.30 Unspecified macular degeneration; I10 Essential (primary) hypertension; M16.12 Unilateral primary osteoarthritis, left hip; Z87.442 Personal history of urinary calculi; Z90.49 Acquired absence of other specified parts of digestive tract; Z90.710 Acquired absence of both cervix and uterus; Z95.1 Presence of aortocoronary bypass graft; Z95.5 Presence of coronary angioplasty implant and graft; Z96.652 Presence of left artificial knee joint; E05.90 Thyrotoxicosis, unspecified without thyrotoxic crisis or storm; K21.0 Gastro-esophageal reflux disease with esophagitis; Z88.8 Allergy status to other drugs, medicaments and biological substances; Z88.1 Allergy status to other antibiotic agents; Z91.041 Radiographic dye allergy status
CPT/HCPCS: 36415; 71010; 80048; 80061; 80076; 82962; 83690; 83880; 84484; 85025; 93005; 93306; 96374; 96375; G0378; G0379; J1170; J1815; J2270; J2405; J7030; J8597; Q0162; 99285-25

== ENCOUNTER 2017-05-26 11:08 | Emergency (ER) | payer MEDICARE, OTHER ==
[~2017-05-26] VITALS: Ht 147.3 cm; Wt 74.8 kg
[2017-05-26 11:08] VITALS: BP 129/61
[~2017-05-26 11:08] MED LIST changes: +AMLO5TAB2 PO; +ATOR40TA59 PO; +ISOS30TA4 PO
[2017-05-26] MEDS ORDERED: NITROGLYCERIN SUBLINGUAL 0.4 MG BOTTLE OF 25. SL PRN (11:15)
--- NOTE | 2017-05-26 11:21 | PHYS DOC ---
Past Medical History Past Medical History: Bipolar, Diabetes-Type II, Heart Disease, Hypertension, IBS, Seizure, Other Additional Past Medical Histor: Gastroparesis Past Surgical History: Appendectomy, Cholecystectomy, Hysterectomy, Other Additional Past Surgical Histo: Cardiac stents x 5, CABG, Fused R)ankle surgery Alcohol Use: None Drug Use: None Adult General Chief Complaint Chief Complaint: ABDOMINAL PAIN HPI HPI Patient is a 71 year old female who presents with multiple complaints. She states it for him this morning she started having her right foot "thump" and she states when this happens she also has her chest pain in her chest. She states is her normal chest pain she's had for years. She also had several episodes of nonbloody diarrhea. She states she's had approximately 12 episodes this morning. Does have resolved now she has any episodes for about 2-3 hours. She also has some epigastric pain. She states this is resolving. She states she ran out of her narcotic pain medicines because get these refilled on Saturday with Dr. Masters. Review of Systems Review of Systems Constitutional: Denies fever or chills Eyes: Denies change in visual acuity, redness, or eye pain HENT: Denies nasal congestion or sore throat Respiratory: Denies cough or shortness of breath Cardiovascular: No additional information not addressed in HPI GI: Positive for abdominal pain, or diarrhea Denies nausea, vomiting, bloody stools : Denies dysuria or hematuria Musculoskeletal: Denies back pain or joint pain Integument: Denies rash or skin lesions Neurologic: Denies headache, focal weakness or sensory changes Endocrine: Denies polyuria or polydipsia Current Medications Current Medications Current Medications Medications (Trade) Dose Ordered Sig/Melanie Start Time Stop Time Status Last Admin Dose Admin Morphine Sulfate 2 mg 1X ONCE 05/26/17 13:30 05/26/17 13:31 DC 05/26/17 13:29 2 MG Nitroglycerin (Nitrostat) 0.4 mg PRN Q5MIN PRN 05/26/17 11:15 05/26/17 15:42 DC Allergies Allergies Allergies Coded Allergies Type Severity Reaction Last Updated Verified Iodinated Contrast- Oral and IV Dye Allergy Severe Anaphylaxis 05/27/16 Yes Penicillins Allergy Intermediate 05/27/16 Yes atenolol Allergy Intermediate 05/27/16 Yes erythromycin base Allergy Intermediate 05/27/16 Yes iodine Allergy Intermediate 05/27/16 Yes levofloxacin Allergy Intermediate 05/27/16 Yes pregabalin Allergy Intermediate 05/27/16 Yes Physical Exam Physical Exam Constitutional: Well developed, well nourished, no acute distress, non-toxic appearance. HENT: Normocephalic, atraumatic, bilateral external ears normal, oropharynx moist, no oral exudates, nose normal. Eyes: PERRLA, EOMI, conjunctiva normal, no discharge. Neck: Normal range of motion, no tenderness, supple, no stridor. Cardiovascular:Heart rate regular rhythm, no murmur Lungs & Thorax: Bilateral breath sounds clear to auscultation Abdomen: Bowel sounds normal, soft, no tenderness, no masses, no pulsatile masses. Skin: Warm, dry, no erythema, no rash. Back: No tenderness, no CVA tenderness. Extremities: No tenderness, no cyanosis, no clubbing, ROM intact, no edema. Neurologic: Alert and oriented X 3, normal motor function, normal sensory function, no focal deficits noted. Psychologic: Affect normal, judgement normal, mood normal. Current Patient Data Vital Signs Vital Signs Date Time Temp Pulse Resp B/P (MAP) Pulse Ox O2 Delivery O2 Flow Rate FiO2 05/26/17 13:29 20 05/26/17 11:08 98.0 75 129/61 (83) 98 Room Air 98.0 Lab Values Laboratory Tests Test 05/26/17 11:30 05/26/17 12:20 Urine Collection Type Void Urine Color Yellow Urine Clarity Clear Urine pH 5.5 Urine Specific [place] 1.015 Urine Protein Negative mg/dL (NEG-TRACE) Urine Glucose (UA) 500 mg/dL (NEG) Urine Ketones (Stick) Negative mg/dL (NEG) Urine Blood Negative (NEG) Urine Nitrite Negative (NEG) Urine Bilirubin Negative (NEG) Urine Urobilinogen Dipstick 0.2 mg/dL (0.2 mg/dL) Urine Leukocyte Esterase Moderate (NEG) Urine RBC Rare /HPF (0-2) Urine WBC 5-10 /HPF (0-4) Urine Squamous Epithelial Cells Few /LPF Urine Bacteria Few /HPF (0-FEW) Urine Hyaline Casts Few /HPF Urine Opiates Screen Neg (NEG) Urine Methadone Screen Neg (NEG) Urine Barbiturates Neg (NEG) Urine Phencyclidine Screen Neg (NEG) Urine Amphetamine/Methamphetamine Neg (NEG) Urine Benzodiazepines Screen Neg (NEG) Urine Cocaine Screen Neg (NEG) Urine Cannabinoids Screen Neg (NEG) Urine Ethyl Alcohol Neg (NEG) White Blood Count 7.7 x10^3/uL (4.0-11.0) Red Blood Count 4.30 x10^6/uL (3.50-5.40) Hemoglobin 13.4 g/dL (12.0-15.5) Hematocrit 39.4 % (36.0-47.0) Mean Corpuscular Volume 92 fL (79-100) Mean Corpuscular Hemoglobin 31 pg (25-35) Mean Corpuscular Hemoglobin Concent 34 g/dL (31-37) Red Cell Distribution Width 13.2 % (11.5-14.5) Platelet Count 427 x10^3/uL (140-400) H Neutrophils (%) (Auto) 69 % (31-73) Lymphocytes (%) (Auto) 22 % (24-48) L Monocytes (%) (Auto) 9 % (0-9) Eosinophils (%) (Auto) 0 % (0-3) Basophils (%) (Auto) 1 % (0-3) Neutrophils # (Auto) 5.3 x10^3uL (1.8-7.7) Lymphocytes # (Auto) 1.7 x10^3/uL (1.0-4.8) Monocytes # (Auto) 0.7 x10^3/uL (0.0-1.1) Eosinophils # (Auto) 0.0 x10^3/uL (0.0-0.7) Basophils # (Auto) 0.0 x10^3/uL (0.0-0.2) Prothrombin Time 12.2 SEC (11.7-14.0) Prothrombin Time INR 1.0 (0.8-1.1) Sodium Level 138 mmol/L (136-145) Potassium Level 3.8 mmol/L (3.5-5.1) Chloride Level 101 mmol/L (98-107) Carbon Dioxide Level 25 mmol/L (21-32) Anion Gap 12 (6-14) Blood Urea Nitrogen 18 mg/dL (7-20) Creatinine 1.0 mg/dL (0.6-1.0) Estimated GFR (Cockcroft-Gault) 54.7 Glucose Level 238 mg/dL (70-99) H Calcium Level 9.8 mg/dL (8.5-10.1) Magnesium Level 2.1 mg/dL (1.8-2.4) Total Bilirubin 0.3 mg/dL (0.2-1.0) Direct Bilirubin 0.1 mg/dL (0.0-0.2) Aspartate Amino Transferase (AST) 17 U/L (15-37) Alanine Aminotransferase (ALT) 29 U/L (14-59) Alkaline Phosphatase 140 U/L (46-116) H Creatine Kinase 65 U/L (26-192) Creatine Kinase MB (Mass) < 0.5 ng/mL (0.0-3.6) Creatine Kinase MB Relative Index % (0-4) Troponin I Quantitative < 0.017 ng/mL (0.000-0.055) RL-Jfi-[id number]-Type Natriuretic Peptide 228 pg/mL (0-124) H Total Protein 8.6 g/dL (6.4-8.2) H Albumin 4.4 g/dL (3.4-5.0) Lipase 323 U/L (73-393) Thyroid Stimulating Hormone (TSH) 0.055 uIU/mL (0.358-3.74) L Laboratory Tests 05/26/17 12:20 Laboratory Tests 05/26/17 12:20 Microbiology 05/26/17 Urine Culture - Final, Complete 05/26/17 Urine Culture Result 1 (JUDY) - Final, Complete EKG EKG EKG shows sinus rhythm [address] elevations or concerning T-wave inversions, left axis deviation noted, QTC 430 ms, as interpreted by me. Radiology/Procedures Radiology/Procedures [facility] [address] [place] [address] IMAGING REPORT Signed PATIENT: ORLIN ROJAS ACCOUNT: [id number] : 1945 LOCATION: ER AGE: 71 SEX: F EXAM STATUS: PRE ER ORD. PHYSICIAN: AVIS FALL MD REASON: chest pain PROCEDURE: PORTABLE CHEST 1V Portable AP upright view CXR: Clinical indications: Chest pain. Comparison: April 30, 2017. Findings: No acute lung infiltrate or pleural effusion or pulmonary edema or lung mass or pneumothorax is seen. Again seen is a sternotomy. Again seen is a thoracic spinal canal stimulator device. The heart size, pulmonary vasculature, mediastinum and both clayton are otherwise unremarkable. Impression: No acute radiographic abnormality is seen. DICTATED and SIGNED BY: SHANKAR KIM MD DATE: 05/26/17 1129 CC: AVIS FALL MD; DENICE MASTERS MD ~ Impressions: Chest discomfort-resolved Abdominal pain-resolved Left ankle pain, chronic Course & Med Decision Making Course & Med Decision Making Pertinent Labs and Imaging studies reviewed. (See chart for details) Patient was evaluated by myself and after her pain was treated she felt better. I spoke with Dr. Masters whose okay with the patient being discharged home if she feels better. Patient's in stable condition at this time with return precautions given. She has a follow-up appointment on Saturday with Dr. Masters to get her pain meds refilled. It sounds like she's been using more than prescribed and she ran out early. Dragon Disclaimer Dragon Disclaimer This electronic medical record was generated, in whole or in part, using a voice recognition dictation system. Departure Departure Impression: Primary Impression: Diarrhea Disposition: HOME, SELF-CARE Condition: STABLE Referrals: DENICE MASTERS MD (PCP) Patient Instructions: Chronic Diarrhea Additional Instructions: You were seen today for your pain after you ran out of your pain meds. You also had diarrhea, that has seemed to have resolved. You received a dose of IM morphine and now your being discharged home. Your blood work did not show any acute abnormalities. Please follow-up with your primary care physician within the week. Return back to ER if her pain returns, you have high fevers, chest pain, or other concerns. Problem Qualifiers Primary Impression: Diarrhea Diarrhea type: unspecified type Qualified Codes: R19.7 - Diarrhea, unspecified AVIS FALL MD May 26, 2017 11:21
--- NOTE | 2017-05-26 11:33 | RAD ---
Portable AP upright view CXR: Clinical indications: Chest pain. Comparison: April 30, 2017. Findings: No acute lung infiltrate or pleural effusion or pulmonary edema or lung mass or pneumothorax is seen. Again seen is a sternotomy. Again seen is a thoracic spinal canal stimulator device. The heart size, pulmonary vasculature, mediastinum and both clayton are otherwise unremarkable. Impression: No acute radiographic abnormality is seen.
--- NOTE | 2017-05-26 11:53 | EKG ---
[facility] [address] [place] [address] Test Date: 2017-05-26 Test Time: 11:16:32 Pat Name: ORLIN ROJAS Department: Room: Gender: [facility] Director: : 1945 Requested By: AVIS FALL Order Number: [id number] Reading MD: Jaja Quigley Measurements Intervals [place] Rate: 75 P: 15 WI: 170 QRS: -20 QRSD: 94 T: 66 QT: 390 QTc: 438 Interpretive Statements SINUS RHYTHM LEFTWARD AXIS QRS(T) CONTOUR ABNORMALITY CANNOT RULE OUT ANTEROSEPTAL MYOCARDIAL DAMAGE T ABNORMALITY IN HIGH LATERAL LEADS Electronically Signed On 05-26-2017 19:37:20 CDT by Jaja Quigley
[2017-05-26 12:02] LABS: BARBITURATES NEG (NEG); BENZODIAZEPINES NEG (NEG); CANNABINOIDS NEG (NEG); COCAINE NEG (NEG); METHADONE NEG (NEG); OPIATES NEG (NEG); PHENCYCLIDINE NEG (NEG)
[2017-05-26 12:10] LABS: BILIRUBIN,URINE NEGATIVE (NEG); GLUCOSE,URINE 500 mg/dL (NEG); PH,URINE 5.5; PROTEIN,URINE NEGATIVE (NEG-TRACE); UROBILINOGEN,URINE 0.2 mg/dL (0.2 mg/dL)
[2017-05-26 12:11] LABS: BACTERIA,URINE FEW /HPF (0-FEW); NITRITE,URINE NEGATIVE (NEG); RBC,URINE RARE /HPF (0-2); SQUAMOUS EPITHELIAL CELL,UR FEW /LPF
[2017-05-26 12:29] LABS: BASO % 1 % (0-3); EOS % 0 % (0-3); HEMATOCRIT 39.4 % (36.0-47.0); HEMOGLOBIN 13.4 g/dL (12.0-15.5); LYMPH # 1.7 x10^3/uL (1.0-4.8); LYMPH % 22 % (24-48); MEAN CORPUSCULAR HEMOGLOBIN 31 pg (25-35); MEAN CORPUSCULAR HGB CONC 34 g/dL (31-37); MEAN CORPUSCULAR VOLUME 92 fL (79-100); MONO % 9 % (0-9); NEUT % 69 % (31-73); PLATELET COUNT 427 x10^3/uL (140-400); RED CELL DISTRIBUTION WIDTH 13.2 % (11.5-14.5); WHITE BLOOD COUNT 7.7 x10^3/uL (4.0-11.0)
[2017-05-26 12:37] LABS: PROTHROMBIN TIME PATIENT 12.2 SEC (11.7-14.0)
[2017-05-26 12:39] LABS: CALCIUM 9.8 mg/dL (8.5-10.1); GFR 54.7; POTASSIUM 3.8 mmol/L (3.5-5.1)
[2017-05-26 12:45] LABS: ALBUMIN 4.4 g/dL (3.4-5.0); DIRECT BILIRUBIN 0.1 mg/dL (0.0-0.2); MAGNESIUM 2.1 mg/dL (1.8-2.4); TOTAL BILIRUBIN 0.3 mg/dL (0.2-1.0); TOTAL PROTEIN 8.6 g/dL (6.4-8.2)
[2017-05-26 12:54] LABS: CKMB MASS < 0.5 ng/mL (0.0-3.6); CREATINE KINASE 65 U/L (26-192)
[2017-05-26] MEDS ORDERED: MORPHINE SULFATE 2 MG/ML DISP.SYRIN. IM ONE (13:30)
[2017-05-30] MEDS ORDERED: RANO500T2 PO (10:47)
[2017-05-30] MEDS ORDERED: ATOR40TA59 PO (10:47)
[2017-05-30] MEDS ORDERED: VALS320T2 PO (10:47)
[2017-05-30] MEDS ORDERED: AMLO10TA2 PO (10:47)
== END 2017-05-26 13:58 | disposition home or self-care (01) ==
LOC: ER 11:08
DX: R19.7 Diarrhea, unspecified (principal); R07.89 Other chest pain; R10.13 Epigastric pain; F31.9 Bipolar disorder, unspecified; I11.9 Hypertensive heart disease without heart failure; K58.9 Irritable bowel syndrome, unspecified; E08.43 Diabetes mellitus due to underlying condition with diabetic autonomic (poly)neuropathy; K31.84 Gastroparesis; Z90.49 Acquired absence of other specified parts of digestive tract; Z90.710 Acquired absence of both cervix and uterus; Z98.1 Arthrodesis status; Z95.5 Presence of coronary angioplasty implant and graft; Z95.1 Presence of aortocoronary bypass graft; Z88.0 Allergy status to penicillin; Z88.8 Allergy status to other drugs, medicaments and biological substances; Z88.1 Allergy status to other antibiotic agents; Z91.041 Radiographic dye allergy status
CPT/HCPCS: 36415; 71010; 80048; 80076; 80307; 81001; 82553; 83690; 83735; 83880; 84443; 84484; 85025; 85610; 87086; 93005; 96372; 99285; J2270; G0479

== ENCOUNTER 2017-06-26 11:50 | Emergency (ER) | payer MEDICARE, OTHER ==
[~2017-06-26] VITALS: Ht 147.3 cm; Wt 78.5 kg
[~2017-06-26 11:50] MED LIST changes: +OXYC10TA PO; +RANO500T2 PO
[2017-06-26 11:58] VITALS: BP 175/76
[2017-06-26] MEDS ORDERED: oxyCODONE/APAP 5/325 1 TAB TABLET PO ONE (12:30)
--- NOTE | 2017-06-26 12:31 | PHYS DOC ---
Past Medical History Past Medical History: Bipolar, Diabetes-Type II, Heart Disease, Hypertension, IBS, Seizure, Other Additional Past Medical Histor: Gastroparesis Past Surgical History: Appendectomy, Cholecystectomy, Hysterectomy, Other Additional Past Surgical Histo: Cardiac stents x 5, CABG, Fused R)ankle surgery Alcohol Use: None Drug Use: None Adult General Chief Complaint Chief Complaint: KNEE INJURY HPI HPI Patient is a 71 year old female who presents with worsening exacerbation of right ankle pain and left knee pain; recent admission to the hospital for a seizure and fall, dismissed yesterday and is currently out of pain meds fentanyl patches worn out and and out of her oral pain meds but Dr. Masters prescribes for her. Prior history of ankle fusion and replacement on the right and left knee replacement. Still able to walk. Review of Systems Review of Systems Constitutional: Denies fever or chills [] Eyes: Denies change in visual acuity, redness, or eye pain [] HENT: Denies nasal congestion or sore throat [] Respiratory: Denies cough or shortness of breath [] Cardiovascular: No additional information not addressed in HPI [] GI: Denies abdominal pain, nausea, vomiting, bloody stools or diarrhea [] : Denies dysuria or hematuria [] Musculoskeletal: Denies back pain or joint pain [] Integument: Denies rash or skin lesions [] Neurologic: Denies headache, focal weakness or sensory changes [] Endocrine: Denies polyuria or polydipsia [] All other systems were reviewed and found to be within normal limits, except as documented in this note. Current Medications Current Medications Current Medications Medications (Trade) Dose Ordered Sig/Melanie Start Time Stop Time Status Last Admin Dose Admin Oxycodone/ Acetaminophen (Percocet 5/325) 1 tab 1X ONCE 06/26/17 12:30 06/26/17 12:31 DC 06/26/17 12:26 1 TAB Allergies Allergies Allergies Coded Allergies Type Severity Reaction Last Updated Verified Iodinated Contrast- Oral and IV Dye Allergy Severe Anaphylaxis 05/27/16 Yes Penicillins Allergy Intermediate 05/27/16 Yes atenolol Allergy Intermediate TAKES METOPROLOL AT HOME 06/23/17 Yes erythromycin base Allergy Intermediate 05/27/16 Yes iodine Allergy Intermediate 05/27/16 Yes levofloxacin Allergy Intermediate 05/27/16 Yes pregabalin Allergy Intermediate 10/16/16 Yes Physical Exam Physical Exam Constitutional: Well developed, well nourished, no acute distress, non-toxic appearance. [] HENT: Normocephalic, atraumatic, bilateral external ears normal, oropharynx moist, no oral exudates, nose normal. [] Eyes: PERRLA, EOMI, conjunctiva normal, no discharge. [] Neck: Normal range of motion, no tenderness, supple, no stridor. [] Cardiovascular:Heart rate regular rhythm, no murmur [] Lungs & Thorax: Bilateral breath sounds clear to auscultation [] Abdomen: Bowel sounds normal, soft, no tenderness, no masses, no pulsatile masses. [] Skin: Warm, dry, no erythema, no rash. [] Back: No tenderness, no CVA tenderness. [] Extremities: Right ankle is postoperatively changed no obvious tenderness to palpation but no swelling bruising or deformity noted. OK: Left knee able to do straight leg raise full range of motion no bruising or swelling noted mild tenderness to the anterior medial knee, no cyanosis, no clubbing, ROM intact, no edema. [] Neurologic: Alert and oriented X 3, normal motor function, normal sensory function, no focal deficits noted. [] Psychologic: Affect normal, judgement normal, mood normal. [] Current Patient Data Vital Signs Vital Signs Date Time Temp Pulse Resp B/P (MAP) Pulse Ox O2 Delivery O2 Flow Rate FiO2 06/26/17 12:26 16 Room Air 06/26/17 11:58 98.0 83 175/76 (109) 96 98.0 EKG EKG [] Radiology/Procedures Radiology/Procedures X-ray left knee right ankle[ no acute fracture or dislocation hardware appears to be intact with no loosening my review and interpretation.] Course & Med Decision Making Course & Med Decision Making Pertinent Labs and Imaging studies reviewed. (See chart for details) Counseled patient regarding the need for pain med refills with her primary care physician and not the emergency department.] Dragon Disclaimer Dragon Disclaimer This electronic medical record was generated, in whole or in part, using a voice recognition dictation system. Departure Departure Impression: Primary Impression: Chronic pain of right ankle Additional Impression: Chronic pain of left knee Disposition: 01 HOME, SELF-CARE Condition: STABLE Referrals: DENICE MASTERS MD (PCP) Patient Instructions: Chronic Pain Problem Qualifiers JESUS ALBERTO CAICEDO MD Jun 26, 2017 12:31
--- NOTE | 2017-06-26 14:01 | RAD ---
Left knee, 3 views, 06/26/2017: History: Seizure, fall, pain Comparison is made to a study from 07/03/2005. A total knee prosthesis is in place. No fracture or dislocation is evident. Dystrophic calcifications are again noted in the periarticular soft tissues. IMPRESSION: No acute bony abnormality is detected.
--- NOTE | 2017-06-26 14:05 | RAD ---
3 views right ankle radiograph 06/26/2017 Clinical indication: Right ankle pain status post fall. Comparison: Right ankle radiographs 03/04/2017 Findings: Prior tibiotalar, subtalar and calcaneocuboid arthrodesis with stable alignment. There is persistent volume loss of the talus with adjacent sclerosis involving the subtalar articulation. There is diffuse bony demineralization. No evidence of acute fracture or traumatic malalignment. Impression: 1. Unchanged extensive postsurgical changes of tibiotalar, subtalar, and calcaneocuboid arthrodesis with stable alignment. 2. No radiographic evidence of acute ankle fracture
== END 2017-06-26 13:35 | disposition home or self-care (01) ==
LOC: ER 11:50
DX: G89.29 Other chronic pain (principal); M25.571 Pain in right ankle and joints of right foot; M25.562 Pain in left knee; F31.9 Bipolar disorder, unspecified; E11.43 Type 2 diabetes mellitus with diabetic autonomic (poly)neuropathy; K31.84 Gastroparesis; I11.9 Hypertensive heart disease without heart failure; K58.9 Irritable bowel syndrome, unspecified; Z95.5 Presence of coronary angioplasty implant and graft; Z90.49 Acquired absence of other specified parts of digestive tract; Z90.710 Acquired absence of both cervix and uterus; Z96.653 Presence of artificial knee joint, bilateral; Z96.669 Presence of unspecified artificial ankle joint; Z88.0 Allergy status to penicillin; Z91.041 Radiographic dye allergy status; Z88.8 Allergy status to other drugs, medicaments and biological substances; Z88.1 Allergy status to other antibiotic agents
CPT/HCPCS: 73562; 73610; 99284

== ENCOUNTER 2017-08-18 19:21 | Emergency (ER) | payer MEDICARE, OTHER ==
[2017-08-18 19:53] LABS: ADD MAN DIFF? NO
[2017-08-18 19:54] LABS: BASO # 0.1 x10^3/uL (0.0-0.2); BASO % 2 % (0-3); EOS # 0.1 x10^3/uL (0.0-0.7); EOS % 1 % (0-3); LYMPH # 2.5 x10^3/uL (1.0-4.8); LYMPH % 36 % (24-48); MEAN CORPUSCULAR HEMOGLOBIN 31 pg (25-35); MEAN CORPUSCULAR HGB CONC 34 g/dL (31-37); MEAN CORPUSCULAR VOLUME 91 fL (79-100); MONO # 0.6 x10^3/uL (0.0-1.1); MONO % 9 % (0-9); NEUT # 3.7 x10^3uL (1.8-7.7); NEUT % 53 % (31-73); PLATELET COUNT 356 x10^3/uL (140-400); RED BLOOD COUNT 4.52 x10^6/uL (3.50-5.40)
[2017-08-18 20:04] LABS: ANION GAP 14 (6-14); BLOOD UREA NITROGEN 11 mg/dL (7-20); BUN/CREATININE RATIO 16 (6-20); CALCIUM 10.4 mg/dL (8.5-10.1); CARBON DIOXIDE 27 mmol/L (21-32); CHLORIDE 101 mmol/L (98-107); CREATININE 0.7 mg/dL (0.6-1.0); GFR 82.5; GLUCOSE 180 mg/dL (70-99); POTASSIUM 3.8 mmol/L (3.5-5.1); SODIUM 142 mmol/L (136-145)
[2017-08-18 20:08] LABS: BILIRUBIN,URINE NEGATIVE (NEG); CLARITY,URINE CLEAR; COLOR,URINE YELLOW; GLUCOSE,URINE NEGATIVE (NEG); NITRITE,URINE NEGATIVE (NEG); PROTEIN,URINE NEGATIVE (NEG-TRACE); UROBILINOGEN,URINE 0.2 mg/dL (0.2 mg/dL)
[2017-08-18 20:10] LABS: ALBUMIN 4.6 g/dL (3.4-5.0); ALBUMIN/GLOBULIN RATIO 1.2 (1.0-1.7); ALK PHOS 164 U/L (46-116); ALT (SGPT) 30 U/L (14-59); AST (SGOT) 22 U/L (15-37); LIPASE 404 U/L (73-393); TOTAL BILIRUBIN 0.2 mg/dL (0.2-1.0); TOTAL PROTEIN 8.5 g/dL (6.4-8.2)
[2017-08-18 20:12] LABS: TROPONINI < 0.017 ng/mL (0.000-0.055)
[2017-08-18 20:13] LABS: RBC,URINE 0 /HPF (0-2)
[2017-08-18 20:14] LABS: BACTERIA,URINE FEW /HPF (0-FEW); SQUAMOUS EPITHELIAL CELL,UR FEW /LPF
[2017-08-18] MEDS: ONDANSETRON PF 4 MG/2 ML VIAL. IV (20:36)
[2017-08-18] MEDS: HALOPERIDOL LACTATE 5 MG/ML VIAL. IVP (20:36)
[2017-08-18] MEDS: IV NORMAL SALINE 1000ML BAG 1,000 ML IV (20:36)
[2017-08-18] MEDS: diphenhydrAMINE 50 MG/ML VIAL IVP (21:13)
[2017-08-18] MEDS: fentaNYL PF VIAL 100 MCG/2 ML VIAL IV (21:13)
== END 2017-08-18 21:50 | disposition home or self-care (01) ==
LOC: ER 19:21
DX: R10.84 Generalized abdominal pain (principal); R11.2 Nausea with vomiting, unspecified; R19.7 Diarrhea, unspecified; I11.9 Hypertensive heart disease without heart failure; E11.43 Type 2 diabetes mellitus with diabetic autonomic (poly)neuropathy; K31.84 Gastroparesis; F31.9 Bipolar disorder, unspecified; K58.9 Irritable bowel syndrome, unspecified; Z95.1 Presence of aortocoronary bypass graft; Z95.5 Presence of coronary angioplasty implant and graft; Z90.710 Acquired absence of both cervix and uterus; Z90.49 Acquired absence of other specified parts of digestive tract; Z98.1 Arthrodesis status; Z88.0 Allergy status to penicillin; Z88.1 Allergy status to other antibiotic agents; Z91.041 Radiographic dye allergy status; Z88.8 Allergy status to other drugs, medicaments and biological substances
CPT/HCPCS: 36415; 71045; 74176; 80053; 81001; 83690; 84484; 85025; 87086; 93005; 96361; 96374; 96375; 99285-25; J1200; J1630; J2405; J3010; J7030

== ENCOUNTER 2017-09-18 07:44 | Emergency (ER) | payer MEDICARE, OTHER ==
[2017-09-18] MEDS ORDERED: ASPIRIN 325 MG TABLET PO ×2 (08:00)
[2017-09-18] MEDS ORDERED: fentaNYL PF VIAL 100 MCG/2 ML VIAL IV ×2 (08:00)
[2017-09-18 11:43] LABS: BILIRUBIN,URINE NEGATIVE (NEG); CLARITY,URINE CLEAR; COLOR,URINE YELLOW; GLUCOSE,URINE >=1000 mg/dL (NEG); NITRITE,URINE NEGATIVE (NEG); PROTEIN,URINE NEGATIVE (NEG-TRACE); UROBILINOGEN,URINE 0.2 mg/dL (0.2 mg/dL)
[2017-09-18 11:50] LABS: BARBITURATES NEG (NEG); BENZODIAZEPINES NEG (NEG); CANNABINOIDS NEG (NEG); COCAINE NEG (NEG); METHADONE NEG (NEG); OPIATES NEG (NEG); PHENCYCLIDINE NEG (NEG)
[2017-09-18 11:51] LABS: AMPHETAMINE/METHAMPHETAMINE NEG (NEG); ETHANOL, URINE NEG (NEG)
[2017-09-18 12:05] LABS: BACTERIA,URINE 0 /HPF (0-FEW); RBC,URINE 0 /HPF (0-2); SQUAMOUS EPITHELIAL CELL,UR FEW /LPF; WBC,URINE 0 /HPF (0-4)
== END 2017-09-18 08:25 | disposition left against medical advice (07) ==
LOC: ER 08:25
DX: R07.9 Chest pain, unspecified (principal); E11.43 Type 2 diabetes mellitus with diabetic autonomic (poly)neuropathy; I10 Essential (primary) hypertension; K31.84 Gastroparesis; Z88.0 Allergy status to penicillin; Z88.1 Allergy status to other antibiotic agents; Z95.1 Presence of aortocoronary bypass graft; Z79.82 Long term (current) use of aspirin; Z88.8 Allergy status to other drugs, medicaments and biological substances; Z91.041 Radiographic dye allergy status
CPT/HCPCS: 80307; 81001; 93005; 99285-25

== ENCOUNTER 2017-11-17 12:49 | Emergency (ER) | payer MEDICARE, OTHER ==
[2017-11-17] MEDS ORDERED: HALOPERIDOL LACTATE 5 MG/ML VIAL. IVP (13:30)
== END 2017-11-17 13:43 | disposition left against medical advice (07) ==
LOC: ER 12:49
DX: R07.89 Other chest pain (principal); R94.31 Abnormal electrocardiogram [ECG] [EKG]; I11.9 Hypertensive heart disease without heart failure; F31.9 Bipolar disorder, unspecified; I25.10 Atherosclerotic heart disease of native coronary artery without angina pectoris; K58.9 Irritable bowel syndrome, unspecified; Z90.49 Acquired absence of other specified parts of digestive tract; Z90.710 Acquired absence of both cervix and uterus; Z95.5 Presence of coronary angioplasty implant and graft; Z95.1 Presence of aortocoronary bypass graft; E11.9 Type 2 diabetes mellitus without complications; Z88.0 Allergy status to penicillin; Z88.1 Allergy status to other antibiotic agents; Z88.8 Allergy status to other drugs, medicaments and biological substances; Z91.041 Radiographic dye allergy status
CPT/HCPCS: 71045; 93005; 99284

== ENCOUNTER 2018-01-03 18:49 | Emergency (ER) | payer MEDICARE, OTHER ==
[2018-01-03] MEDS: KETOROLAC 60 MG/2 ML INJ. IM (21:15)
== END 2018-01-03 21:17 | disposition home or self-care (01) ==
LOC: ER 18:49
DX: G89.29 Other chronic pain (principal); M25.571 Pain in right ankle and joints of right foot; M25.562 Pain in left knee; I11.9 Hypertensive heart disease without heart failure; E11.43 Type 2 diabetes mellitus with diabetic autonomic (poly)neuropathy; K31.84 Gastroparesis; K58.9 Irritable bowel syndrome, unspecified; Z95.1 Presence of aortocoronary bypass graft; Z95.5 Presence of coronary angioplasty implant and graft; Z90.49 Acquired absence of other specified parts of digestive tract; Z90.710 Acquired absence of both cervix and uterus; Z98.1 Arthrodesis status; Z88.0 Allergy status to penicillin; Z88.1 Allergy status to other antibiotic agents; Z88.8 Allergy status to other drugs, medicaments and biological substances; Z91.041 Radiographic dye allergy status; W01.0XXA Fall on same level from slipping, tripping and stumbling without subsequent striking against object, initial encounter; Y93.89 Activity, other specified; Y99.8 Other external cause status; Y92.89 Other specified places as the place of occurrence of the external cause
CPT/HCPCS: 99284

== ENCOUNTER 2018-03-29 12:10 | Inpatient (IN) | payer MEDICARE, OTHER ==
[~2018-03-29] VITALS: Ht 147.3 cm; Wt 74.8 kg
[~2018-03-29 12:10] MED LIST changes: +ASPI325T8 PO; -CLON1TAB3 PO; +CLON1TAB4 PO; +CYAN10005 PO; +LOSA50TA2 PO; -METF-620 PO; +METF10003 PO; -METF500T4 PO; +METF500T5 PO; -METO50TA2 PO; +METO50TA6 PO; +NAPR-514 PO; +OXYC-411 PO; -OXYC1TAB9 PO; +VALS320T13 PO; -VALS320T9 PO
--- NOTE | 2018-03-29 12:26 | PHYS DOC ---
Past Medical History Past Medical History: Bipolar, Diabetes-Type II, Heart Disease, Hypertension, IBS, Seizure, Other Additional Past Medical Histor: Gastroparesis Past Surgical History: Appendectomy, Cholecystectomy, Coronary Bypass Surgery, Hysterectomy, Other Additional Past Surgical Histo: Cardiac stents x 5, CABG, Fused R)ankle surgery Alcohol Use: None Drug Use: None Adult General HPI HPI Patient is a 72 year old female who presents with abdominal pain and nausea/ vomiting. The patient states she has poorly controlled diabetes. She has a known history of gastroparesis. She presents to the emergency department today complaining of generalized abdominal pain and profuse nausea and vomiting over the last 48 hours. She contacted her primary care physician earlier today and was recommended to come to the ER. Patient states she has had too numerous to count episodes of emesis. They're described to be nonbloody. She has been unable to keep down any food or fluid. She states these symptoms do feel typical for her pain but is normally related to gastroparesis but that the intensity is worse today. No fever or chills. No hematochezia or melanotic stools. Review of Systems Review of Systems Constitutional: Denies fever or chills Eyes: Denies change in visual acuity HENT: Denies nasal congestion Respiratory: Denies cough or shortness of breath Cardiovascular: No additional information not addressed in HPI GI: as documented above : Denies dysuria or hematuria Musculoskeletal: Denies back pain Integument: Denies rash or skin lesions Neurologic: Denies headache Endocrine: Denies polyuria All other systems were reviewed and found to be within normal limits, except as documented in this note. Current Medications Current Medications Current Medications Medications (Trade) Dose Ordered Sig/Melanie Start Time Stop Time Status Last Admin Dose Admin Morphine Sulfate (Morphine Sulfate) 6 mg 1X ONCE 03/29/18 13:00 03/29/18 13:01 DC 03/29/18 13:27 6 MG Sodium Chloride 1,000 ml @ 1,000 mls/hr 1X ONCE 03/29/18 13:00 03/29/18 13:59 DC 03/29/18 13:28 1,000 MLS/HR Allergies Allergies Allergies Coded Allergies Type Severity Reaction Last Updated Verified Iodinated Contrast- Oral and IV Dye Allergy Severe Anaphylaxis 05/27/16 Yes Penicillins Allergy Intermediate 05/27/16 Yes atenolol Allergy Intermediate TAKES METOPROLOL AT HOME 06/23/17 Yes erythromycin base Allergy Intermediate 05/27/16 Yes iodine Allergy Intermediate 05/27/16 Yes levofloxacin Allergy Intermediate 05/27/16 Yes pregabalin Allergy Intermediate 05/27/16 Yes Physical Exam Physical Exam Constitutional: Well developed, well nourished, mild distress 2/2 pain HENT: Normocephalic, atraumatic, bilateral external ears normal Eyes: PERRLA, EOMI Neck: Normal range of motion Cardiovascular:Heart rate regular rhythm, no murmur Lungs & Thorax: Bilateral breath sounds clear Abdomen: soft, diffusely TTP. no guarding or rebound Skin: Warm, dry, no erythema Extremities: No edema Neurologic: Alert and oriented X 3 Psychologic: Affect normal Current Patient Data Vital Signs Vital Signs Date Time Temp Pulse Resp B/P (MAP) Pulse Ox O2 Delivery O2 Flow Rate FiO2 03/29/18 13:30 82 17 96 Room Air 03/29/18 12:51 125/85 (98) 03/29/18 12:10 97.5 97.5 Lab Values Laboratory Tests Test 03/29/18 12:17 03/29/18 12:30 Urine Collection Type Unknown Urine Color Yellow Urine Clarity Clear Urine pH 5.0 Urine Specific [place] >=1.030 Urine Protein 30 mg/dL (NEG-TRACE) Urine Glucose (UA) >=1000 mg/dL (NEG) Urine Ketones (Stick) Negative mg/dL (NEG) Urine Blood Negative (NEG) Urine Nitrite Negative (NEG) Urine Bilirubin Negative (NEG) Urine Urobilinogen Dipstick 0.2 mg/dL (0.2 mg/dL) Urine Leukocyte Esterase Trace (NEG) Urine RBC 0 /HPF (0-2) Urine WBC 11-20 /HPF (0-4) Urine Squamous Epithelial Cells Mod /LPF Urine Renal Epithelial Cells Occ /LPF Urine Bacteria 0 /HPF (0-FEW) Urine Yeast Present /HPF White Blood Count 7.5 x10^3/uL (4.0-11.0) Red Blood Count 4.40 x10^6/uL (3.50-5.40) Hemoglobin 14.1 g/dL (12.0-15.5) Hematocrit 41.1 % (36.0-47.0) Mean Corpuscular Volume 94 fL (79-100) Mean Corpuscular Hemoglobin 32 pg (25-35) Mean Corpuscular Hemoglobin Concent 34 g/dL (31-37) Red Cell Distribution Width 17.1 % (11.5-14.5) H Platelet Count 411 x10^3/uL (140-400) H Neutrophils (%) (Auto) 61 % (31-73) Lymphocytes (%) (Auto) 31 % (24-48) Monocytes (%) (Auto) 7 % (0-9) Eosinophils (%) (Auto) 0 % (0-3) Basophils (%) (Auto) 1 % (0-3) Neutrophils # (Auto) 4.6 x10^3uL (1.8-7.7) Lymphocytes # (Auto) 2.3 x10^3/uL (1.0-4.8) Monocytes # (Auto) 0.5 x10^3/uL (0.0-1.1) Eosinophils # (Auto) 0.0 x10^3/uL (0.0-0.7) Basophils # (Auto) 0.0 x10^3/uL (0.0-0.2) Sodium Level 133 mmol/L (136-145) L Potassium Level 3.5 mmol/L (3.5-5.1) Chloride Level 101 mmol/L (98-107) Carbon Dioxide Level 17 mmol/L (21-32) L Anion Gap 15 (6-14) H Blood Urea Nitrogen 11 mg/dL (7-20) Creatinine 0.9 mg/dL (0.6-1.0) Estimated GFR (Cockcroft-Gault) 61.5 Glucose Level 250 mg/dL (70-99) H Lactic Acid Level 1.8 mmol/L (0.4-2.0) Calcium Level 9.9 mg/dL (8.5-10.1) Total Bilirubin 0.3 mg/dL (0.2-1.0) Direct Bilirubin 0.1 mg/dL (0.0-0.2) Aspartate Amino Transferase (AST) 17 U/L (15-37) Alanine Aminotransferase (ALT) 26 U/L (14-59) Alkaline Phosphatase 146 U/L (46-116) H Total Protein 9.1 g/dL (6.4-8.2) H Albumin 4.6 g/dL (3.4-5.0) Lipase 233 U/L (73-393) Laboratory Tests 03/29/18 12:30 Laboratory Tests 03/29/18 12:30 EKG EKG No STEMI Interpretation Time: 12:55 Radiology/Procedures Radiology/Procedures FINDINGS: The liver and spleen and pancreas are homogeneous in appearance on this noncontrast study. There is fatty atrophy of the head and neck of the pancreas. The gallbladder is surgically absent. No extrahepatic biliary ductal dilatation is seen. No adrenal mass is evident. No hydronephrosis or hydroureter or urinary tract stone is evident. No focal aneurysmal dilatation of the abdominal aorta is seen. No enlarged abdominal or pelvic lymphadenopathy is evident. Colonic diverticulosis is seen without diverticulitis. The appendix is normal. No obstructive bowel pattern is evident. Small hiatal hernia is seen. Stomach is not abnormally distended. No free air or free fluid or mesenteric edema is seen. No lung base consolidation is seen. Compression fracture of L2 is seen which has been treated with methylmethacrylate. The compression fracture is unchanged. Grade 1 anterolisthesis of L5-S1 is seen which is stable. IMPRESSION: No acute abnormality of the abdomen or pelvis is evident. Small hiatal hernia. Course & Med Decision Making Course & Med Decision Making Pertinent Labs and Imaging studies reviewed. (See chart for details) 12:20: Patient is seen and examined. Moderate distress 2/2 pain. Orders placed. Morphine, zofran for symptom control. CT w/o contrast as patient is allergic to iodine/contrast dye. 14:00: Patient now with mildly improved symptoms. CT scan is pending. Based on her exam and her presentation, this patient will require admission. She does continue to have nausea and the patient states she is not comfortable with discharge to home. I spoke to her primary care doctor, Dr. Masters, who is agreeable to admit this patient. Inpatient orders are placed. The patient's home medications were also reconciled and orders are placed for these. Plan is to admit pending CT scan. Dragon Disclaimer Dragon Disclaimer This electronic medical record was generated, in whole or in part, using a voice recognition dictation system. Departure Departure Referrals: DENICE MASTERS MD (PCP) NATY HORN DO Mar 29, 2018 12:26
[2018-03-29 12:41] LABS: BASO % 1 % (0-3); EOS % 0 % (0-3); HEMATOCRIT 41.1 % (36.0-47.0); HEMOGLOBIN 14.1 g/dL (12.0-15.5); LYMPH # 2.3 x10^3/uL (1.0-4.8); LYMPH % 31 % (24-48); MEAN CORPUSCULAR HEMOGLOBIN 32 pg (25-35); MEAN CORPUSCULAR HGB CONC 34 g/dL (31-37); MEAN CORPUSCULAR VOLUME 94 fL (79-100); MONO # 0.5 x10^3/uL (0.0-1.1); MONO % 7 % (0-9); NEUT # 4.6 x10^3uL (1.8-7.7); NEUT % 61 % (31-73); PLATELET COUNT 411 x10^3/uL (140-400); RED CELL DISTRIBUTION WIDTH 17.1 % (11.5-14.5); WHITE BLOOD COUNT 7.5 x10^3/uL (4.0-11.0)
[2018-03-29 12:43] LABS: BILIRUBIN,URINE NEGATIVE (NEG); CLARITY,URINE CLEAR; COLOR,URINE YELLOW; NITRITE,URINE NEGATIVE (NEG); PROTEIN,URINE 30 mg/dL (NEG-TRACE); UROBILINOGEN,URINE 0.2 mg/dL (0.2 mg/dL)
[2018-03-29 12:56] LABS: BACTERIA,URINE 0 /HPF (0-FEW); RBC,URINE 0 /HPF (0-2); SQUAMOUS EPITHELIAL CELL,UR MOD /LPF
[2018-03-29 12:57] LABS: YEAST,URINE PRESENT /HPF
[2018-03-29 12:58] LABS: CALCIUM 9.9 mg/dL (8.5-10.1); CREATININE 0.9 mg/dL (0.6-1.0); GFR 61.5; POTASSIUM 3.5 mmol/L (3.5-5.1)
[2018-03-29] MEDS ORDERED: MORPHINE SULFATE 10 MG/ML VIAL. IV ONE (13:00)
[2018-03-29] MEDS ORDERED: IV NORMAL SALINE 1000ML BAG 1,000 ML IV ONE (13:00)
[2018-03-29 13:03] LABS: ALBUMIN 4.6 g/dL (3.4-5.0); DIRECT BILIRUBIN 0.1 mg/dL (0.0-0.2); TOTAL BILIRUBIN 0.3 mg/dL (0.2-1.0); TOTAL PROTEIN 9.1 g/dL (6.4-8.2)
--- NOTE | 2018-03-29 13:49 | EKG ---
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
[2018-03-29] MEDS ORDERED: METOPROLOL TART IMMED RELEASE 50 MG TABLET. PO SCH (14:30)
[2018-03-29] MEDS ORDERED: NITROGLYCERIN SUBLINGUAL 0.4 MG BOTTLE OF 25. SL PRN (15:00)
[2018-03-29] MEDS ORDERED: ONDANSETRON PF 4 MG/2 ML VIAL. IV SCH (15:00)
[2018-03-29] MEDS ORDERED: MAG HYDROX/ALUMINUM HYD/SIMETH 30 ML ORAL.SUSP PO PRN (15:00)
[2018-03-29] MEDS ORDERED: LORazepam 1 MG TABLET PO SCH (15:00)
[2018-03-29] MEDS ORDERED: levETIRAcetam 500 MG TABLET PO ONE (15:00)
--- NOTE | 2018-03-29 15:15 | PDOC ---
Provider Note Provider Note history and physical dictated # [id number] DENICE IZAGUIRRE MD Mar 29, 2018 15:15
[2018-03-29] MEDS: MORPHINE SULFATE 4 MG/ML VIAL. IV PRN ×2 (15:29→20:04)
--- NOTE | 2018-03-29 15:39 | HP ---
ADMIT DATE: 03/29/2018 LOCATION: She is in room 422. HISTORY OF PRESENT ILLNESS: The patient is a 72-year-old white female with history of diabetes mellitus type 2 with diabetic gastroparesis who has hypertension, hyperlipidemia, coronary artery disease, was admitted to [facility] through Emergency Room with a 2-day history of epigastric abdominal pain, intractable nausea and vomiting. She normally takes Zofran 4 mg before meals t.i.d. and bedtime and metoclopramide 10 mg before meals t.i.d. and bedtime, but she has not been able to hold much down in terms of food and liquid and prompting her to go to the Emergency Room with some epigastric discomfort. She denies any fever, hematemesis, melena or hematochezia. Said she had some loose stools. She was sent to the Emergency Room for evaluation and she has a CAT scan of the abdomen and pelvis ordered per the Emergency Room doctor, which has not been done yet. She was subsequently admitted to the hospital for further evaluation of her intractable nausea and vomiting due to suspected severe diabetic gastroparesis. ALLERGIES AND INTOLERANCES: INCLUDE IV IODINE, PENICILLIN, ATENOLOL, ERYTHROMYCIN, IODINE, LEVAQUIN AND LYRICA. MEDICATIONS: Prior to admission include Actos 45 mg every day, amlodipine 10 mg every day, aspirin 81 mg every day, atorvastatin 40 mg every day, Plavix 75 mg every day, fentanyl 25 mcg patch every 72 hours, hydrochlorothiazide 25 mg every day, Imdur extended release 60 mg every day, Keppra 1000 mg b.i.d., Lantus insulin 8 units at bedtime, levothyroxine 75 mcg every day, lorazepam 1 mg t.i.d. p.r.n. anxiety, losartan 100 mg every day, metoclopramide 10 mg before a.c. t.i.d. and at bedtime, metoprolol succinate 50 mg every day, multiple vitamin once a day, nitroglycerin 0.4 mg sublingual p.r.n., NovoLog insulin 8 units before meals t.i.d., oxycodone 10 mg t.i.d. p.r.n., Protonix 40 mg every day, Ranexa 1000 mg b.i.d., sodium bicarbonate 650 mg b.i.d., liquid Carafate 1 gram before meals t.i.d. and at bedtime, vitamin B12 at 1000 mcg every day, Zofran 8 mg before meals t.i.d. and Ambien 5 mg at bedtime p.r.n. PAST MEDICAL HISTORY: Significant for diabetes mellitus with severe diabetic gastroparesis, hypertension, hyperlipidemia, coronary artery disease with chronic angina pectoris. She also has a history of epilepsy. She had thyrotoxicosis in the past, but currently has hypothyroidism. She has chronic right ankle pain, narcotic dependent. She had a previous right ankle fusion. She has diabetes mellitus with microalbuminuria. She has a history of reflux esophagitis, gastritis and diverticulosis. She had a Schatzki ring stricture dilated in 2011, right ankle arthroplasty in 2009, cardiac catheterization several times, 3-vessel coronary bypass graft surgery in 2002, left total knee arthroplasty, open reduction and internal fixation for right ankle fracture, PTCA and coronary stents x 3 to the left anterior descending coronary artery and circumflex artery. She has had kidney stones, lumbar spondylosis, bipolar disorder, gastroesophageal reflux disease, hyperlipidemia. She has had an appendectomy, cholecystectomy, tonsillectomy, thyroidectomy for multinodular goiter in 12/2017. She had a stent to the circumflex coronary artery in 04/2014. SOCIAL HISTORY: She does not drink alcohol nor does she smoke cigarettes. She is . FAMILY HISTORY: Father with a myocardial infarction. Mother with cirrhosis. REVIEW OF SYSTEMS: GENERAL: There has been no fever, chills or sweats in the last few days. CARDIOVASCULAR: She does have some chest pain from time to time as mentioned. PULMONARY: No cough or shortness of breath. GASTROINTESTINAL: She has had the intractable nausea, vomiting, and some diarrhea. ENDOCRINE: She has diabetes mellitus. SKIN: No rashes. The rest of review of systems is negative except as stated in history of present illness. PHYSICAL EXAMINATION: VITAL SIGNS: Temperature is 97.5 degrees, apical pulse is 82, respiratory rate 17, blood pressure is 125/85, oxygen saturation 96% on room air. HEENT: Eyes: Gaze is conjugate. Mouth: Tongue is midline. NECK: There is no cervical lymphadenopathy. HEART: Reveals an S1, S2. There is no S3 or murmur. LUNGS: Clear. ABDOMEN: Soft, bowel sounds positive, not distended with mild epigastric tenderness with no hepatosplenomegaly, masses or tenderness. EXTREMITIES: Lower extremities without edema. SKIN: No rashes. NEUROLOGIC: She is coherent. No focal weakness in arms or legs. LABORATORY DATA: White count 7.5, hemoglobin 14.1, platelet count 411,000, 61 polys, 31 lymphocytes. Sodium 133, potassium 3.5, chloride 101, total CO2 of 17, BUN 11, creatinine 0.9, blood sugar 250. Lactic acid level 1.8. Liver function tests were okay except for an alkaline phosphatase of 146, total protein was 9.1, albumin 4.6, lipase was 233. Calcium was 9.9. Urinalysis showed 11-20 white cells with 0 blood cells. The electrocardiogram showed normal sinus rhythm with poor precordial R-wave progression, no acute change. A chest x-ray apparently has not been done. ASSESSMENT: 1. Suspected diabetic gastroparesis with intractable nausea and vomiting. 2. Epigastric abdominal pain. 3. 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 4. Hypertension. 5. Hyperlipidemia. 6. Coronary artery disease. 7. Hypothyroidism. PLAN: At this time is to consult Dr. Edwards for GI. Would wait for the CAT scan of the abdomen and pelvis. We will resume her home medications except we will give her Zofran 4 mg IV every 6 hours on schedule, metoclopramide 10 mg IV every 6 hours on schedule. Start her on IV fluids at 60 mL an hour and put her on a full liquid diet. Continue with her home insulin dose and check her blood sugars before meals t.i.d. and at bedtime, eventually advance her to a diabetic diet. We will get a urine culture also for pyuria. Recheck her labs again tomorrow. Order SCDs for deep vein thrombosis prophylaxis. DENICE IZAGUIRRE MD DR: MIKAL/mandy JOB#: [id number] / [id number]
[2018-03-29] MEDS: ISOSORBIDE MONONITRATE ER 30 MG TAB.ER.24H PO SCH (16:00)
[2018-03-29] MEDS: LEVOTHYROXINE 75 MCG TABLET PO SCH ×2 (16:00→16:27)
[2018-03-29] MEDS: hydroCHLOROthiazide 25 MG TABLET PO SCH (16:00)
[2018-03-29] MEDS: CLOPIDOGREL BISULFATE 75 MG TABLET PO SCH (16:27)
[2018-03-29] MEDS: METOCLOPRAMIDE HCL 10 MG/2 ML VIAL. IV SCH ×2 (16:27→17:27)
[2018-03-29] MEDS: MULTIVITAMIN with MINERAL TABLET. PO SCH (16:28)
[2018-03-29] MEDS: ASPIRIN CHEWABLE 81 MG TABLET. PO SCH (16:28)
[2018-03-29] MEDS: amLODIPine BESYLATE 10 MG TABLET PO SCH (16:29)
[2018-03-29] MEDS: SUCRALFATE 1 GM/10 ML ORAL.SUSP. PEG SCH ×3 (16:30→22:00)
[2018-03-29] MEDS: oxyCODONE IR 5 MG TABLET PO PRN ×2 (16:30→21:59)
[2018-03-29] MEDS: LOSARTAN POTASSIUM 50 MG TABLET. PO SCH (16:30)
[2018-03-29] MEDS ORDERED: PANTOPRAZOLE 40 MG TABLET.DR. PO SCH (16:30)
[2018-03-29] MEDS: CYANOCOBALAMIN (VITAMIN B-12) 1,000 MCG TABLET. PO SCH (16:31)
[2018-03-29] MEDS: PIOGLITAZONE 15 MG TABLET. PO SCH (16:32)
[2018-03-29] MEDS: METOPROLOL SUCC 24HR ER 50 MG TAB.ER.24H. PO SCH (16:33)
[2018-03-29] MEDS: PANTOPRAZOLE 40 MG TABLET.DR. PO SCH (16:33)
[2018-03-29] MEDS: LORazepam 1 MG TABLET PO PRN ×2 (16:33→21:59)
[2018-03-29] MEDS: fentaNYL 25MCG/HR PATCH 1 PATCH PATCH.TD72 TD SCH (16:34)
[2018-03-29] MEDS: IV NORMAL SALINE 1000ML BAG 1,000 ML IV SCH (16:35)
--- NOTE | 2018-03-29 16:46 | RAD ---
CT study of the abdomen and pelvis without contrast Clinical indications: Diffuse upper abdominal pain and epigastric pain. Allergy to iodine. TECHNIQUE: Noncontrast helical CT scanning of abdomen and pelvis was performed. Without contrast, the sensitivity to detect organ pathology and GI tract pathology is decreased. PQRS compliance Statement One or more of the following individualized dose reduction techniques were utilized for this study: 1. Automated exposure control 2. Adjustment of the mA and/or kV according to patient size 3. Use of iterative reconstruction technique COMPARISON: August 18, 2017. FINDINGS: The liver and spleen and pancreas are homogeneous in appearance on this noncontrast study. There is fatty atrophy of the head and neck of the pancreas. The gallbladder is surgically absent. No extrahepatic biliary ductal dilatation is seen. No adrenal mass is evident. No hydronephrosis or hydroureter or urinary tract stone is evident. No focal aneurysmal dilatation of the abdominal aorta is seen. No enlarged abdominal or pelvic lymphadenopathy is evident. Colonic diverticulosis is seen without diverticulitis. The appendix is normal. No obstructive bowel pattern is evident. Small hiatal hernia is seen. Stomach is not abnormally distended. No free air or free fluid or mesenteric edema is seen. No lung base consolidation is seen. Compression fracture of L2 is seen which has been treated with methylmethacrylate. The compression fracture is unchanged. Grade 1 anterolisthesis of L5-S1 is seen which is stable. IMPRESSION: No acute abnormality of the abdomen or pelvis is evident. Small hiatal hernia. Electronically signed by: Elvis Swift MD (03/29/2018 4:42 PM) [facility] [place]
[2018-03-29] MEDS: INSULIN LISPRO 300 UNITS/3 ML INSULN.PEN. SQ SCH (17:00)
[2018-03-29] MEDS: ONDANSETRON PF 4 MG/2 ML VIAL. IV SCH (17:27)
[2018-03-29 19:40] VITALS: BP 159/69
[2018-03-29] MEDS ORDERED: ATORVASTATIN CALCIUM 40 MG TABLET. PO SCH (21:00)
[2018-03-29] MEDS: levETIRAcetam 500 MG TABLET PO SCH (21:58)
[2018-03-29] MEDS: ZOLPIDEM 5 MG TABLET. PO PRN (21:59)
[2018-03-29] MEDS: RANOLAZINE 500 MG TAB.ER.12H PO SCH (21:59)
[2018-03-29] MEDS: ATORVASTATIN CALCIUM 40 MG TABLET. PO SCH (22:00)
[2018-03-29] MEDS: SODIUM BICARBONATE 650 MG TABLET. PO SCH (22:00)
[2018-03-29] MEDS: INSULIN GLARGINE 300 UNITS/3 ML INSULN.PEN. SQ SCH (22:11)
[2018-03-30] MEDS: ONDANSETRON PF 4 MG/2 ML VIAL. IV SCH ×5 (00:30→23:38)
[2018-03-30] MEDS: MORPHINE SULFATE 4 MG/ML VIAL. IV PRN ×2 (00:30→06:01)
[2018-03-30] MEDS: METOCLOPRAMIDE HCL 10 MG/2 ML VIAL. IV SCH ×5 (00:30→23:39)
[2018-03-30 03:00] VITALS: BP 126/63
[2018-03-30] MEDS: LEVOTHYROXINE 75 MCG TABLET PO SCH (06:01)
[2018-03-30] MEDS: IV NORMAL SALINE 1000ML BAG 1,000 ML IV SCH (06:05)
[2018-03-30 07:00] VITALS: BP 135/75
[2018-03-30] MEDS: SUCRALFATE 1 GM/10 ML ORAL.SUSP. PEG SCH ×4 (07:30→20:42)
[2018-03-30] MEDS: ASPIRIN CHEWABLE 81 MG TABLET. PO SCH (08:13)
[2018-03-30] MEDS: PIOGLITAZONE 15 MG TABLET. PO SCH (08:14)
[2018-03-30] MEDS: SODIUM BICARBONATE 650 MG TABLET. PO SCH ×2 (08:14→20:41)
[2018-03-30] MEDS: hydroCHLOROthiazide 25 MG TABLET PO SCH (08:14)
[2018-03-30] MEDS: levETIRAcetam 500 MG TABLET PO SCH ×2 (08:15→20:40)
[2018-03-30] MEDS: MULTIVITAMIN with MINERAL TABLET. PO SCH (08:15)
[2018-03-30] MEDS: oxyCODONE IR 5 MG TABLET PO PRN ×3 (08:15→20:41)
[2018-03-30] MEDS: LOSARTAN POTASSIUM 50 MG TABLET. PO SCH (08:16)
[2018-03-30] MEDS: CYANOCOBALAMIN (VITAMIN B-12) 1,000 MCG TABLET. PO SCH (08:16)
[2018-03-30] MEDS: amLODIPine BESYLATE 10 MG TABLET PO SCH (08:16)
[2018-03-30] MEDS: LORazepam 1 MG TABLET PO PRN ×3 (08:17→20:40)
[2018-03-30] MEDS: RANOLAZINE 500 MG TAB.ER.12H PO SCH ×2 (08:17→20:41)
[2018-03-30] MEDS: CLOPIDOGREL BISULFATE 75 MG TABLET PO SCH (08:17)
[2018-03-30] MEDS: PANTOPRAZOLE 40 MG TABLET.DR. PO SCH (08:17)
[2018-03-30] MEDS: METOPROLOL SUCC 24HR ER 50 MG TAB.ER.24H. PO SCH (08:18)
[2018-03-30 08:30] LABS: BASO % 1 % (0-3); EOS % 1 % (0-3); HEMATOCRIT 35.1 % (36.0-47.0); HEMOGLOBIN 11.9 g/dL (12.0-15.5); LYMPH # 2.3 x10^3/uL (1.0-4.8); LYMPH % 37 % (24-48); MEAN CORPUSCULAR HEMOGLOBIN 32 pg (25-35); MEAN CORPUSCULAR HGB CONC 34 g/dL (31-37); MEAN CORPUSCULAR VOLUME 94 fL (79-100); MONO # 0.5 x10^3/uL (0.0-1.1); MONO % 7 % (0-9); NEUT # 3.3 x10^3uL (1.8-7.7); NEUT % 54 % (31-73); PLATELET COUNT 347 x10^3/uL (140-400); RED BLOOD COUNT 3.73 x10^6/uL (3.50-5.40); RED CELL DISTRIBUTION WIDTH 17.2 % (11.5-14.5); WHITE BLOOD COUNT 6.2 x10^3/uL (4.0-11.0)
[2018-03-30] MEDS: INSULIN LISPRO 300 UNITS/3 ML INSULN.PEN. SQ SCH ×3 (08:31→17:18)
[2018-03-30 08:41] LABS: ALBUMIN 3.6 g/dL (3.4-5.0); CALCIUM 8.6 mg/dL (8.5-10.1); CREATININE 0.7 mg/dL (0.6-1.0); GFR 82.3; POTASSIUM 3.4 mmol/L (3.5-5.1); TOTAL BILIRUBIN 0.3 mg/dL (0.2-1.0); TOTAL PROTEIN 7.1 g/dL (6.4-8.2)
[2018-03-30] MEDS: ISOSORBIDE MONONITRATE ER 30 MG TAB.ER.24H PO SCH (09:00)
[2018-03-30] MEDS ORDERED: amLODIPine BESYLATE 10 MG TABLET PO SCH (09:00)
--- NOTE | 2018-03-30 09:38 | RAD ---
EXAM: AP view of the chest DATE: 03/29/2018 3:38 PM INDICATION: HYPERTENSION COMPARISON: 11/17/2017 FINDINGS: The heart is not enlarged. Mediastinal and hilar contours are normal. Atherosclerotic calcifications of the tortuous aorta are seen. No focal parenchymal airspace opacity. No pleural effusion or pneumothorax. Spinal stimulator lead is seen. Changes of cardiothoracic surgery are seen. IMPRESSION: 1. No radiographic evidence for acute cardiopulmonary process. Electronically signed by: Roby Jacobs MD (03/30/2018 9:34 AM) [facility]
[2018-03-30 11:00] VITALS: BP 124/57
--- NOTE | 2018-03-30 12:11 | PDOC ---
PROGRESS NOTES Subjective Subjective ct scan of abdomen and pelvis was negative . has a hiatal hernia. lab reviewed. potassium low 3.4. no further vomiting. has some abdominal cramps. Objective Objective Vital Signs Date Time Temp Pulse Resp B/P (MAP) Pulse Ox O2 Delivery O2 Flow Rate FiO2 03/30/18 11:00 97.7 59 18 124/57 (79) 99 Room Air 97.7 Intake and Output 03/30/18 07:00 Intake Total 1000 ml Balance 1000 ml Intake IV Total 1000 ml # Voids 5 Physical Exam Abdomen: Soft, No tenderness Heart: Regular rate, Normal S1, Normal S2 Extremities: No edema General: Alert HEENT: Atraumatic Lungs: Clear to auscultation Neuro: Normal speech Psych/Mental Status: Mental status NL Skin: No rashes Assessment Assessment Problems1. diabetic gastroparesis with intractable nausea and vomiting. improved 2. Epigastric abdominal pain. 3. 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 4. Hypertension. 5. Hyperlipidemia. 6. Coronary artery disease. 7. Hypothyroidism. hypokalemia pyuria Medical Problems: (1) Intractable vomiting Status: Acute Plan Plan of Care advance to soft solids ada continue iv reglan and iv zofran start prn bentyl lab tomorrow replete kcl urine culture pending Comment Review of Relevant I have reviewed the following items maldonado (where applicable) has been applied. Labs Laboratory Tests Test 03/29/18 12:17 03/29/18 12:30 03/29/18 20:59 03/30/18 07:10 Urine Collection Type Unknown Urine Color Yellow Urine Clarity Clear Urine pH 5.0 Urine Specific [place] >=1.030 Urine Protein 30 mg/dL (NEG-TRACE) Urine Glucose (UA) >=1000 mg/dL (NEG) Urine Ketones (Stick) Negative mg/dL (NEG) Urine Blood Negative (NEG) Urine Nitrite Negative (NEG) Urine Bilirubin Negative (NEG) Urine Urobilinogen Dipstick 0.2 mg/dL (0.2 mg/dL) Urine Leukocyte Esterase Trace (NEG) Urine RBC 0 /HPF (0-2) Urine WBC 11-20 /HPF (0-4) Urine Squamous Epithelial Cells Mod /LPF Urine Renal Epithelial Cells Occ /LPF Urine Bacteria 0 /HPF (0-FEW) Urine Yeast Present /HPF White Blood Count 7.5 x10^3/uL (4.0-11.0) 6.2 x10^3/uL (4.0-11.0) Red Blood Count 4.40 x10^6/uL (3.50-5.40) 3.73 x10^6/uL (3.50-5.40) Hemoglobin 14.1 g/dL (12.0-15.5) 11.9 g/dL (12.0-15.5) Hematocrit 41.1 % (36.0-47.0) 35.1 % (36.0-47.0) Mean Corpuscular Volume 94 fL (79-100) 94 fL (79-100) Mean Corpuscular Hemoglobin 32 pg (25-35) 32 pg (25-35) Mean Corpuscular Hemoglobin Concent 34 g/dL (31-37) 34 g/dL (31-37) Red Cell Distribution Width 17.1 % (11.5-14.5) 17.2 % (11.5-14.5) Platelet Count 411 x10^3/uL (140-400) 347 x10^3/uL (140-400) Neutrophils (%) (Auto) 61 % (31-73) 54 % (31-73) Lymphocytes (%) (Auto) 31 % (24-48) 37 % (24-48) Monocytes (%) (Auto) 7 % (0-9) 7 % (0-9) Eosinophils (%) (Auto) 0 % (0-3) 1 % (0-3) Basophils (%) (Auto) 1 % (0-3) 1 % (0-3) Neutrophils # (Auto) 4.6 x10^3uL (1.8-7.7) 3.3 x10^3uL (1.8-7.7) Lymphocytes # (Auto) 2.3 x10^3/uL (1.0-4.8) 2.3 x10^3/uL (1.0-4.8) Monocytes # (Auto) 0.5 x10^3/uL (0.0-1.1) 0.5 x10^3/uL (0.0-1.1) Eosinophils # (Auto) 0.0 x10^3/uL (0.0-0.7) 0.0 x10^3/uL (0.0-0.7) Basophils # (Auto) 0.0 x10^3/uL (0.0-0.2) 0.0 x10^3/uL (0.0-0.2) Sodium Level 133 mmol/L (136-145) 140 mmol/L (136-145) Potassium Level 3.5 mmol/L (3.5-5.1) 3.4 mmol/L (3.5-5.1) Chloride Level 101 mmol/L (98-107) 106 mmol/L (98-107) Carbon Dioxide Level 17 mmol/L (21-32) 21 mmol/L (21-32) Anion Gap 15 (6-14) 13 (6-14) Blood Urea Nitrogen 11 mg/dL (7-20) 7 mg/dL (7-20) Creatinine 0.9 mg/dL (0.6-1.0) 0.7 mg/dL (0.6-1.0) Estimated GFR (Cockcroft-Gault) 61.5 82.3 Glucose Level 250 mg/dL (70-99) 174 mg/dL (70-99) Lactic Acid Level 1.8 mmol/L (0.4-2.0) Calcium Level 9.9 mg/dL (8.5-10.1) 8.6 mg/dL (8.5-10.1) Total Bilirubin 0.3 mg/dL (0.2-1.0) 0.3 mg/dL (0.2-1.0) Direct Bilirubin 0.1 mg/dL (0.0-0.2) Aspartate Amino Transf (AST/SGOT) 17 U/L (15-37) 25 U/L (15-37) Alanine Aminotransferase (ALT/SGPT) 26 U/L (14-59) 29 U/L (14-59) Alkaline Phosphatase 146 U/L (46-116) 110 U/L (46-116) Total Protein 9.1 g/dL (6.4-8.2) 7.1 g/dL (6.4-8.2) Albumin 4.6 g/dL (3.4-5.0) 3.6 g/dL (3.4-5.0) Lipase 233 U/L (73-393) Glucose (Fingerstick) 183 mg/dL (70-99) BUN/Creatinine Ratio 10 (6-20) Albumin/Globulin Ratio 1.0 (1.0-1.7) Laboratory Tests Test 03/29/18 12:17 03/29/18 12:30 03/29/18 20:59 03/30/18 07:10 Urine Collection Type Unknown Urine Color Yellow Urine Clarity Clear Urine pH 5.0 Urine Specific [place] >=1.030 Urine Protein 30 mg/dL (NEG-TRACE) Urine Glucose (UA) >=1000 mg/dL (NEG) Urine Ketones (Stick) Negative mg/dL (NEG) Urine Blood Negative (NEG) Urine Nitrite Negative (NEG) Urine Bilirubin Negative (NEG) Urine Urobilinogen Dipstick 0.2 mg/dL (0.2 mg/dL) Urine Leukocyte Esterase Trace (NEG) Urine RBC 0 /HPF (0-2) Urine WBC 11-20 /HPF (0-4) Urine Squamous Epithelial Cells Mod /LPF Urine Renal Epithelial Cells Occ /LPF Urine Bacteria 0 /HPF (0-FEW) Urine Yeast Present /HPF White Blood Count 7.5 x10^3/uL (4.0-11.0) 6.2 x10^3/uL (4.0-11.0) Red Blood Count 4.40 x10^6/uL (3.50-5.40) 3.73 x10^6/uL (3.50-5.40) Hemoglobin 14.1 g/dL (12.0-15.5) 11.9 g/dL (12.0-15.5) Hematocrit 41.1 % (36.0-47.0) 35.1 % (36.0-47.0) Mean Corpuscular Volume 94 fL (79-100) 94 fL (79-100) Mean Corpuscular Hemoglobin 32 pg (25-35) 32 pg (25-35) Mean Corpuscular Hemoglobin Concent 34 g/dL (31-37) 34 g/dL (31-37) Red Cell Distribution Width 17.1 % (11.5-14.5) 17.2 % (11.5-14.5) Platelet Count 411 x10^3/uL (140-400) 347 x10^3/uL (140-400) Neutrophils (%) (Auto) 61 % (31-73) 54 % (31-73) Lymphocytes (%) (Auto) 31 % (24-48) 37 % (24-48) Monocytes (%) (Auto) 7 % (0-9) 7 % (0-9) Eosinophils (%) (Auto) 0 % (0-3) 1 % (0-3) Basophils (%) (Auto) 1 % (0-3) 1 % (0-3) Neutrophils # (Auto) 4.6 x10^3uL (1.8-7.7) 3.3 x10^3uL (1.8-7.7) Lymphocytes # (Auto) 2.3 x10^3/uL (1.0-4.8) 2.3 x10^3/uL (1.0-4.8) Monocytes # (Auto) 0.5 x10^3/uL (0.0-1.1) 0.5 x10^3/uL (0.0-1.1) Eosinophils # (Auto) 0.0 x10^3/uL (0.0-0.7) 0.0 x10^3/uL (0.0-0.7) Basophils # (Auto) 0.0 x10^3/uL (0.0-0.2) 0.0 x10^3/uL (0.0-0.2) Sodium Level 133 mmol/L (136-145) 140 mmol/L (136-145) Potassium Level 3.5 mmol/L (3.5-5.1) 3.4 mmol/L (3.5-5.1) Chloride Level 101 mmol/L (98-107) 106 mmol/L (98-107) Carbon Dioxide Level 17 mmol/L (21-32) 21 mmol/L (21-32) Anion Gap 15 (6-14) 13 (6-14) Blood Urea Nitrogen 11 mg/dL (7-20) 7 mg/dL (7-20) Creatinine 0.9 mg/dL (0.6-1.0) 0.7 mg/dL (0.6-1.0) Estimated GFR (Cockcroft-Gault) 61.5 82.3 Glucose Level 250 mg/dL (70-99) 174 mg/dL (70-99) Lactic Acid Level 1.8 mmol/L (0.4-2.0) Calcium Level 9.9 mg/dL (8.5-10.1) 8.6 mg/dL (8.5-10.1) Total Bilirubin 0.3 mg/dL (0.2-1.0) 0.3 mg/dL (0.2-1.0) Direct Bilirubin 0.1 mg/dL (0.0-0.2) Aspartate Amino Transf (AST/SGOT) 17 U/L (15-37) 25 U/L (15-37) Alanine Aminotransferase (ALT/SGPT) 26 U/L (14-59) 29 U/L (14-59) Alkaline Phosphatase 146 U/L (46-116) 110 U/L (46-116) Total Protein 9.1 g/dL (6.4-8.2) 7.1 g/dL (6.4-8.2) Albumin 4.6 g/dL (3.4-5.0) 3.6 g/dL (3.4-5.0) Lipase 233 U/L (73-393) Glucose (Fingerstick) 183 mg/dL (70-99) BUN/Creatinine Ratio 10 (6-20) Albumin/Globulin Ratio 1.0 (1.0-1.7) Medications Current Medications Sodium Chloride 1,000 ml @ 1,000 mls/hr 1X ONCE IV Last administered on at 13:28; Start 03/29/18 at 13:00; Stop 03/29/18 at 13:59; Status DC Morphine Sulfate (Morphine Sulfate) 6 mg 1X ONCE IV Last administered on at 13:27; Start 03/29/18 at 13:00; Stop 03/29/18 at 13:01; Status DC Ondansetron HCl (Zofran) 6 mg Q6HRS IV ; Start 03/29/18 at 15:00; Stop 03/29/18 at 15:05; Status DC Morphine Sulfate (Morphine Sulfate) 4 mg PRN Q2HR PRN IV PAIN Last administered on 03/30/18at 06:01; Start 03/29/18 at 14:15; Stop 03/30/18 at 14:14 Sodium Chloride 1,000 ml @ 60 mls/hr [id number] IV Last administered on 06:05; Start 03/29/18 at 15:00; Stop 03/30/18 at 14:59 Metoclopramide HCl (Reglan Vial) 10 mg Q6HRS IV Last administered on 03/30/18at 12:02; Start 03/29/18 at 14:30 Pioglitazone HCl (Actos) 45 mg DAILY PO Last administered on 03/30/18 08:14; Start 03/29/18 at 14:30 Zolpidem Tartrate (Ambien) 5 mg PRN QHS PRN PO INSOMNIA Last administered on at 21:59; Start 03/29/18 at 14:15 Pantoprazole Sodium (Protonix) 40 mg BIDAC PO ; Start 03/29/18 at 16:30; Stop at 16:30; Status DC Metoprolol Tartrate (Lopressor) 100 mg BID PO ; Start 03/29/18 at 14:30; Stop at 15:05; Status DC Losartan Potassium (Cozaar) 100 mg DAILY PO Last administered on 03/30/18at 08: 16; Start 03/29/18 at 15:00 Lorazepam (Ativan) 1 mg TID PO ; Start 03/29/18 at 15:00; Stop 03/29/18 at 15:05 ; Status DC Levetiracetam (Keppra) 1,000 mg BID PO Last administered on 03/30/18at 08:15; Start 03/29/18 at 21:00 Clopidogrel Bisulfate (Plavix) 75 mg DAILY PO Last administered on 03/30/18at 08 :17; Start 03/29/18 at 15:00 Amlodipine Besylate (Norvasc) 10 mg DAILY PO Last administered on 03/30/18at 08: 16; Start 03/29/18 at 15:00 Insulin Human Lispro (HumaLOG) 8 units TIDWMEALS SQ Last administered on at 08:31; Start 03/29/18 at 17:00 Insulin Glargine (Lantus) 8 units QHS SQ Last administered on 03/29/18at 22:11; Start 03/29/18 at 21:00 Atorvastatin Calcium (Lipitor) 80 mg QHS PO ; Start 03/29/18 at 21:00; Stop at 21:00; Status DC Levetiracetam (Keppra) 1,000 mg 1X ONCE PO Last administered on 03/29/18at 16: 29; Start 03/29/18 at 15:00; Stop 03/29/18 at 15:01; Status DC Atorvastatin Calcium (Lipitor) 40 mg QHS PO Last administered on 03/29/18 22: 00; Start 03/29/18 at 21:00 Lorazepam (Ativan) 1 mg PRN TID PRN PO ANXIETY / AGITATION Last administered on 03/30/18 08:17; Start 03/29/18 at 15:00 Ondansetron HCl (Zofran) 4 mg Q6HRS IV Last administered on 03/30/18 12:02; Start 03/29/18 at 18:00 Metoprolol Succinate (Toprol Xl) 50 mg DAILY PO Last administered on 03/30/18 08:18; Start 03/29/18 at 16:00 Multivitamins (Thera M Plus) 1 tab DAILY PO Last administered on 03/30/18 08: 15; Start 03/29/18 at 16:00 Nitroglycerin (Nitrostat) 0.4 mg PRN Q5MIN PRN SL CHEST PAIN; Start 03/29/18 at 15:00 Levothyroxine Sodium (Synthroid) 75 mcg DAILY07 PO Last administered on at 06:01; Start 03/29/18 at 16:00 Isosorbide Mononitrate (Imdur) 60 mg DAILY PO ; Start 03/29/18 at 16:00 Fentanyl (Duragesic 25mcg/ Hr Patch) 1 patch Q3DAYS TD Last administered on at 16:34; Start 03/29/18 at 17:00 Amlodipine Besylate (Norvasc) 10 mg DAILY PO ; Start 03/30/18 at 09:00; Status UNV Aspirin (Children'S Aspirin) 81 mg DAILYWBKFT PO Last administered on at 08:13; Start 03/29/18 at 16:00 Hydrochlorothiazide (Hydrodiuril) 25 mg DAILY PO Last administered on at 08:14; Start 03/29/18 at 16:00 Acetaminophen (Tylenol) 650 mg PRN Q6HRS PRN PO MILD PAIN / TEMP; Start at 15:00 Oxycodone HCl (Roxicodone) 10 mg PRN TID PRN PO MODERATE-SEVERE PAIN Last administered on 03/30/18at 08:15; Start 03/29/18 at 15:00 Pantoprazole Sodium (Protonix) 40 mg DAILYAC PO Last administered on 03/30/18 08:17; Start 03/29/18 at 16:00 Ranolazine (Ranexa) 1,000 mg BID PO Last administered on 03/30/18 08:17; Start 03/29/18 at 21:00 Sodium Bicarbonate (Sodium Bicarbonate) 650 mg BID PO Last administered on 03/30at 08:14; Start 03/29/18 at 21:00 Sucralfate (Carafate) 1 gm QIDACHS PEG ; Start 03/29/18 at 16:30 Cyanocobalamin (Vitamin B-12) 1,000 mcg DAILY PO Last administered on at 08:16; Start 03/29/18 at 16:00 Al Hydroxide/Mg Hydroxide (Mylanta Plus Xs) 30 ml PRN Q2HR PRN PO HEARTBURN / GAS; Start 03/29/18 at 15:00 Active Scripts Active Naproxen 500 Mg Tablet 1 Tab PO BID PRN Vitamin B-12 (Cyanocobalamin (Vitamin B-12)) 1,000 Mcg Tablet 1,000 Mcg PO DAILY 30 Days Levemir Flextouch (Insulin Detemir) 100 Unit/1 Ml Insuln.pen 6 Units SQ QHS 30 Days Novolog Flexpen (Insulin Aspart) 100 Unit/1 Ml Insuln.pen 6 Units SQ TIDWMEALS 30 Days Metoclopramide Hcl 10 Mg/10 Ml Solution 10 Mg PO TIDACHC 30 Days Aspirin 325 Mg Tablet 81 Mg PO DAILYWBKFT 30 Days Cozaar (Losartan Potassium) 50 Mg Tablet 100 Mg PO DAILY 30 Days Amlodipine Besylate 5 Mg Tablet 5 Mg PO DAILY 30 Days Metoprolol Tartrate 50 Mg Tablet 100 Mg PO BID 30 Days Nitrostat (Nitroglycerin) 0.4 Mg Tab.subl 0.4 Mg SL PRN Q5MIN PRN 30 Days Isosorbide Mononitrate Er (Isosorbide Mononitrate) 30 Mg Tab.er.24h 60 Mg PO DAILY 30 Days Atorvastatin Calcium 40 Mg Tablet 40 Mg PO QHS 30 Days Ranexa (Ranolazine) 500 Mg Tab.er.12h 1,000 Mg PO BID 30 Days Keppra (Levetiracetam) 500 Mg Tablet 1,000 Mg PO BID 30 Days [Pioglitazone Hcl] 15 MG Tablet 45 Mg PO DAILY Lorazepam 1 Mg Tablet 1 Mg PO PRN TID PRN Pantoprazole Sodium 40 Mg Tablet.dr 40 Mg PO BIDAC Ondansetron Odt (Ondansetron) 4 Mg Tab.rapdis 4 Mg PO TIDAC FENTANYL 25mcg/hr (Fentanyl) 1 Each Patch.td72 1 Patch TD Q3DAYS Reported Ambien (Zolpidem Tartrate) 5 Mg Tablet 5 Mg PO HS Clopidogrel (Clopidogrel Bisulfate) 75 Mg Tablet 75 Mg PO DAILY Vitals/I & O Vital Sign - Last 24 Hours 03/29/18 03/29/18 03/29/18 03/29/18 12:10 12:21 12:30 12:51 Temp 97.5 97.5 Pulse 85 90 84 98 Resp 24 29 24 19 B/P (MAP) 125/88 (100) 133/69 (90) 125/85 (98) Pulse Ox 99 97 97 98 O2 Delivery Room Air Room Air Room Air Room Air 03/29/18 03/29/18 03/29/18 03/29/18 13:00 13:27 13:30 15:29 Pulse 82 82 Resp 19 21 17 Pulse Ox 96 98 96 O2 Delivery Room Air Room Air Room Air 03/29/18 03/29/18 03/29/18 03/29/18 15:59 16:00 16:29 16:30 Pulse 82 82 B/P (MAP) 125/85 125/85 O2 Delivery Room Air Room Air 03/29/18 03/29/18 03/29/18 03/29/18 16:33 16:34 19:40 20:00 Temp 98.1 98.1 Pulse 82 73 Resp 20 B/P (MAP) 125/85 159/69 (99) Pulse Ox 98 O2 Delivery Room Air Room Air Room Air 03/29/18 03/30/18 03/30/18 03/30/18 21:59 03:00 07:00 07:30 Temp 98.1 97.5 98.1 97.5 Pulse 73 66 71 Resp 18 18 B/P (MAP) 159/69 126/63 (84) 135/75 (95) Pulse Ox 98 99 O2 Delivery Room Air Room Air Room Air 03/30/18 03/30/18 03/30/18 03/30/18 08:15 08:16 08:16 08:17 Pulse 71 71 71 Resp 17 B/P (MAP) 138/75 138/75 138/75 Pulse Ox 98 O2 Delivery Room Air 03/30/18 03/30/18 03/30/18 08:18 09:19 11:00 Temp 97.7 97.7 Pulse 71 59 Resp 17 18 B/P (MAP) 138/75 124/57 (79) Pulse Ox 98 99 O2 Delivery Room Air Room Air Intake and Output 03/29/18 03/29/18 03/30/18 15:00 23:00 07:00 Intake Total 1000 ml Balance 1000 ml DENICE IZAGUIRRE MD Mar 30, 2018 12:11
[2018-03-30] MEDS ORDERED: POTASSIUM CHLORIDE 20 MEQ TABLET.ER. PO ONE (13:00)
--- NOTE | 2018-03-30 14:33 | PDOC2 ---
CONSULT Date of Consult Date of Consult DATE: 03/30/18 TIME: 14:31 Reason for Consult Reason for Consult: n/v hx gastroparesis s/p lauren Past Medical History Cardiovascular: CAD, HTN, Hyperlipidemia Pulmonary: Bronchitis CENTRAL NERVOUS SYSTEM: Seizure GI: GERD, Other Heme/Onc: No pertinent hx Hepatobiliary: No pertinent hx Psych: No pertinent hx Musculoskeletal: low back pain, Osteoarthritis Rheumatologic: No pertinent hx Infectious disease: No pertinent hx Renal/: Chronic renal insuff, Other Endocrine: Diabetes Past Surgical History Past Surgical History: Appendectomy, Cholecystectomy, CABG, Other Family History Family History: Hypertension Social History ALCOHOL: none Drugs: None Lives: with Family Current Problem List Problem List Problems Medical Problems: (1) Intractable vomiting Status: Acute Current Medications Current Medications Current Medications Sodium Chloride 1,000 ml @ 1,000 mls/hr 1X ONCE IV Last administered on at 13:28; Start 03/29/18 at 13:00; Stop 03/29/18 at 13:59; Status DC Morphine Sulfate (Morphine Sulfate) 6 mg 1X ONCE IV Last administered on at 13:27; Start 03/29/18 at 13:00; Stop 03/29/18 at 13:01; Status DC Ondansetron HCl (Zofran) 6 mg Q6HRS IV ; Start 03/29/18 at 15:00; Stop 03/29/18 at 15:05; Status DC Morphine Sulfate (Morphine Sulfate) 4 mg PRN Q2HR PRN IV PAIN Last administered on 03/30/18at 06:01; Start 03/29/18 at 14:15; Stop 03/30/18 at 14:14 ; Status DC Sodium Chloride 1,000 ml @ 60 mls/hr [id number] IV Last administered on at 06:05; Start 03/29/18 at 15:00; Stop 03/30/18 at 12:17; Status DC Metoclopramide HCl (Reglan Vial) 10 mg Q6HRS IV Last administered on 03/30/18at 12:02; Start 03/29/18 at 14:30 Pioglitazone HCl (Actos) 45 mg DAILY PO Last administered on 03/30/18at 08:14; Start 03/29/18 at 14:30 Zolpidem Tartrate (Ambien) 5 mg PRN QHS PRN PO INSOMNIA Last administered on at 21:59; Start 03/29/18 at 14:15 Pantoprazole Sodium (Protonix) 40 mg BIDAC PO ; Start 03/29/18 at 16:30; Stop at 16:30; Status DC Metoprolol Tartrate (Lopressor) 100 mg BID PO ; Start 03/29/18 at 14:30; Stop at 15:05; Status DC Losartan Potassium (Cozaar) 100 mg DAILY PO Last administered on 03/30/18at 08: 16; Start 03/29/18 at 15:00 Lorazepam (Ativan) 1 mg TID PO ; Start 03/29/18 at 15:00; Stop 03/29/18 at 15:05 ; Status DC Levetiracetam (Keppra) 1,000 mg BID PO Last administered on 03/30/18at 08:15; Start 03/29/18 at 21:00 Clopidogrel Bisulfate (Plavix) 75 mg DAILY PO Last administered on 03/30/18at 08 :17; Start 03/29/18 at 15:00 Amlodipine Besylate (Norvasc) 10 mg DAILY PO Last administered on 03/30/18at 08: 16; Start 03/29/18 at 15:00 Insulin Human Lispro (HumaLOG) 8 units TIDWMEALS SQ Last administered on at 12:16; Start 03/29/18 at 17:00 Insulin Glargine (Lantus) 8 units QHS SQ Last administered on 03/29/18at 22:11; Start 03/29/18 at 21:00 Atorvastatin Calcium (Lipitor) 80 mg QHS PO ; Start 03/29/18 at 21:00; Stop at 21:00; Status DC Levetiracetam (Keppra) 1,000 mg 1X ONCE PO Last administered on 03/29/18at 16: 29; Start 03/29/18 at 15:00; Stop 03/29/18 at 15:01; Status DC Atorvastatin Calcium (Lipitor) 40 mg QHS PO Last administered on 03/29/18at 22: 00; Start 03/29/18 at 21:00 Lorazepam (Ativan) 1 mg PRN TID PRN PO ANXIETY / AGITATION Last administered on 03/30/18 13:57; Start 03/29/18 at 15:00 Ondansetron HCl (Zofran) 4 mg Q6HRS IV Last administered on 03/30/18 12:02; Start 03/29/18 at 18:00 Metoprolol Succinate (Toprol Xl) 50 mg DAILY PO Last administered on 03/30/18 08:18; Start 03/29/18 at 16:00 Multivitamins (Thera M Plus) 1 tab DAILY PO Last administered on 03/30/18 08: 15; Start 03/29/18 at 16:00 Nitroglycerin (Nitrostat) 0.4 mg PRN Q5MIN PRN SL CHEST PAIN; Start 03/29/18 at 15:00 Levothyroxine Sodium (Synthroid) 75 mcg DAILY07 PO Last administered on 06:01; Start 03/29/18 at 16:00 Isosorbide Mononitrate (Imdur) 60 mg DAILY PO ; Start 03/29/18 at 16:00 Fentanyl (Duragesic 25mcg/ Hr Patch) 1 patch Q3DAYS TD Last administered on at 16:34; Start 03/29/18 at 17:00 Amlodipine Besylate (Norvasc) 10 mg DAILY PO ; Start 03/30/18 at 09:00; Status UNV Aspirin (Children'S Aspirin) 81 mg DAILYWBKFT PO Last administered on at 08:13; Start 03/29/18 at 16:00 Hydrochlorothiazide (Hydrodiuril) 25 mg DAILY PO Last administered on at 08:14; Start 03/29/18 at 16:00 Acetaminophen (Tylenol) 650 mg PRN Q6HRS PRN PO MILD PAIN / TEMP; Start at 15:00 Oxycodone HCl (Roxicodone) 10 mg PRN TID PRN PO MODERATE-SEVERE PAIN Last administered on 03/30/18 13:57; Start 03/29/18 at 15:00 Pantoprazole Sodium (Protonix) 40 mg DAILYAC PO Last administered on 03/30/18 08:17; Start 03/29/18 at 16:00 Ranolazine (Ranexa) 1,000 mg BID PO Last administered on 03/30/18at 08:17; Start 03/29/18 at 21:00 Sodium Bicarbonate (Sodium Bicarbonate) 650 mg BID PO Last administered on 03/30at 08:14; Start 03/29/18 at 21:00 Sucralfate (Carafate) 1 gm QIDACHS PEG ; Start 03/29/18 at 16:30 Cyanocobalamin (Vitamin B-12) 1,000 mcg DAILY PO Last administered on at 08:16; Start 03/29/18 at 16:00 Al Hydroxide/Mg Hydroxide (Mylanta Plus Xs) 30 ml PRN Q2HR PRN PO HEARTBURN / GAS; Start 03/29/18 at 15:00 Dicyclomine HCl (Bentyl) 10 mg PRN Q6HRS PRN PO abdominal cramps; Start at 12:15 Potassium Chloride (Klor-Con) 20 meq 1X ONCE PO Last administered on at 13:57; Start 03/30/18 at 13:00; Stop 03/30/18 at 13:01; Status DC Active Scripts Active Naproxen 500 Mg Tablet 1 Tab PO BID PRN Vitamin B-12 (Cyanocobalamin (Vitamin B-12)) 1,000 Mcg Tablet 1,000 Mcg PO DAILY 30 Days Levemir Flextouch (Insulin Detemir) 100 Unit/1 Ml Insuln.pen 6 Units SQ QHS 30 Days Novolog Flexpen (Insulin Aspart) 100 Unit/1 Ml Insuln.pen 6 Units SQ TIDWMEALS 30 Days Metoclopramide Hcl 10 Mg/10 Ml Solution 10 Mg PO TIDACHC 30 Days Aspirin 325 Mg Tablet 81 Mg PO DAILYWBKFT 30 Days Cozaar (Losartan Potassium) 50 Mg Tablet 100 Mg PO DAILY 30 Days Amlodipine Besylate 5 Mg Tablet 5 Mg PO DAILY 30 Days Metoprolol Tartrate 50 Mg Tablet 100 Mg PO BID 30 Days Nitrostat (Nitroglycerin) 0.4 Mg Tab.subl 0.4 Mg SL PRN Q5MIN PRN 30 Days Isosorbide Mononitrate Er (Isosorbide Mononitrate) 30 Mg Tab.er.24h 60 Mg PO DAILY 30 Days Atorvastatin Calcium 40 Mg Tablet 40 Mg PO QHS 30 Days Ranexa (Ranolazine) 500 Mg Tab.er.12h 1,000 Mg PO BID 30 Days Keppra (Levetiracetam) 500 Mg Tablet 1,000 Mg PO BID 30 Days [Pioglitazone Hcl] 15 MG Tablet 45 Mg PO DAILY Lorazepam 1 Mg Tablet 1 Mg PO PRN TID PRN Pantoprazole Sodium 40 Mg Tablet.dr 40 Mg PO BIDAC Ondansetron Odt (Ondansetron) 4 Mg Tab.rapdis 4 Mg PO TIDAC FENTANYL 25mcg/hr (Fentanyl) 1 Each Patch.td72 1 Patch TD Q3DAYS Reported Ambien (Zolpidem Tartrate) 5 Mg Tablet 5 Mg PO HS Clopidogrel (Clopidogrel Bisulfate) 75 Mg Tablet 75 Mg PO DAILY Allergies Allergies: Coded Allergies: Iodinated Contrast- Oral and IV Dye (Verified Allergy, Severe, Anaphylaxis , 05/27/16) Penicillins (Verified Allergy, Intermediate, 05/27/16) atenolol (Verified Allergy, Intermediate, TAKES METOPROLOL AT HOME, ) erythromycin base (Verified Allergy, Intermediate, 05/27/16) iodine (Verified Allergy, Intermediate, 05/27/16) levofloxacin (Verified Allergy, Intermediate, 05/27/16) pregabalin (Verified Allergy, Intermediate, 05/27/16) Vitals VITALS Vital Signs Date Time Temp Pulse Resp B/P (MAP) Pulse Ox O2 Delivery O2 Flow Rate FiO2 03/30/18 13:57 17 99 Room Air 03/30/18 11:00 97.7 59 124/57 (79) 97.7 Labs Labs Laboratory Tests Test 03/29/18 12:17 03/29/18 12:30 03/29/18 20:59 03/30/18 07:10 Urine Collection Type Unknown Urine Color Yellow Urine Clarity Clear Urine pH 5.0 Urine Specific [place] >=1.030 Urine Protein 30 mg/dL (NEG-TRACE) Urine Glucose (UA) >=1000 mg/dL (NEG) Urine Ketones (Stick) Negative mg/dL (NEG) Urine Blood Negative (NEG) Urine Nitrite Negative (NEG) Urine Bilirubin Negative (NEG) Urine Urobilinogen Dipstick 0.2 mg/dL (0.2 mg/dL) Urine Leukocyte Esterase Trace (NEG) Urine RBC 0 /HPF (0-2) Urine WBC 11-20 /HPF (0-4) Urine Squamous Epithelial Cells Mod /LPF Urine Renal Epithelial Cells Occ /LPF Urine Bacteria 0 /HPF (0-FEW) Urine Yeast Present /HPF White Blood Count 7.5 x10^3/uL (4.0-11.0) 6.2 x10^3/uL (4.0-11.0) Red Blood Count 4.40 x10^6/uL (3.50-5.40) 3.73 x10^6/uL (3.50-5.40) Hemoglobin 14.1 g/dL (12.0-15.5) 11.9 g/dL (12.0-15.5) Hematocrit 41.1 % (36.0-47.0) 35.1 % (36.0-47.0) Mean Corpuscular Volume 94 fL (79-100) 94 fL (79-100) Mean Corpuscular Hemoglobin 32 pg (25-35) 32 pg (25-35) Mean Corpuscular Hemoglobin Concent 34 g/dL (31-37) 34 g/dL (31-37) Red Cell Distribution Width 17.1 % (11.5-14.5) 17.2 % (11.5-14.5) Platelet Count 411 x10^3/uL (140-400) 347 x10^3/uL (140-400) Neutrophils (%) (Auto) 61 % (31-73) 54 % (31-73) Lymphocytes (%) (Auto) 31 % (24-48) 37 % (24-48) Monocytes (%) (Auto) 7 % (0-9) 7 % (0-9) Eosinophils (%) (Auto) 0 % (0-3) 1 % (0-3) Basophils (%) (Auto) 1 % (0-3) 1 % (0-3) Neutrophils # (Auto) 4.6 x10^3uL (1.8-7.7) 3.3 x10^3uL (1.8-7.7) Lymphocytes # (Auto) 2.3 x10^3/uL (1.0-4.8) 2.3 x10^3/uL (1.0-4.8) Monocytes # (Auto) 0.5 x10^3/uL (0.0-1.1) 0.5 x10^3/uL (0.0-1.1) Eosinophils # (Auto) 0.0 x10^3/uL (0.0-0.7) 0.0 x10^3/uL (0.0-0.7) Basophils # (Auto) 0.0 x10^3/uL (0.0-0.2) 0.0 x10^3/uL (0.0-0.2) Sodium Level 133 mmol/L (136-145) 140 mmol/L (136-145) Potassium Level 3.5 mmol/L (3.5-5.1) 3.4 mmol/L (3.5-5.1) Chloride Level 101 mmol/L (98-107) 106 mmol/L (98-107) Carbon Dioxide Level 17 mmol/L (21-32) 21 mmol/L (21-32) Anion Gap 15 (6-14) 13 (6-14) Blood Urea Nitrogen 11 mg/dL (7-20) 7 mg/dL (7-20) Creatinine 0.9 mg/dL (0.6-1.0) 0.7 mg/dL (0.6-1.0) Estimated GFR (Cockcroft-Gault) 61.5 82.3 Glucose Level 250 mg/dL (70-99) 174 mg/dL (70-99) Lactic Acid Level 1.8 mmol/L (0.4-2.0) Calcium Level 9.9 mg/dL (8.5-10.1) 8.6 mg/dL (8.5-10.1) Total Bilirubin 0.3 mg/dL (0.2-1.0) 0.3 mg/dL (0.2-1.0) Direct Bilirubin 0.1 mg/dL (0.0-0.2) Aspartate Amino Transf (AST/SGOT) 17 U/L (15-37) 25 U/L (15-37) Alanine Aminotransferase (ALT/SGPT) 26 U/L (14-59) 29 U/L (14-59) Alkaline Phosphatase 146 U/L (46-116) 110 U/L (46-116) Total Protein 9.1 g/dL (6.4-8.2) 7.1 g/dL (6.4-8.2) Albumin 4.6 g/dL (3.4-5.0) 3.6 g/dL (3.4-5.0) Lipase 233 U/L (73-393) Glucose (Fingerstick) 183 mg/dL (70-99) BUN/Creatinine Ratio 10 (6-20) Albumin/Globulin Ratio 1.0 (1.0-1.7) Test 03/30/18 12:12 Glucose (Fingerstick) 229 mg/dL (70-99) Laboratory Tests Test 03/29/18 20:59 03/30/18 07:10 03/30/18 12:12 Glucose (Fingerstick) 183 mg/dL (70-99) 229 mg/dL (70-99) White Blood Count 6.2 x10^3/uL (4.0-11.0) Red Blood Count 3.73 x10^6/uL (3.50-5.40) Hemoglobin 11.9 g/dL (12.0-15.5) Hematocrit 35.1 % (36.0-47.0) Mean Corpuscular Volume 94 fL (79-100) Mean Corpuscular Hemoglobin 32 pg (25-35) Mean Corpuscular Hemoglobin Concent 34 g/dL (31-37) Red Cell Distribution Width 17.2 % (11.5-14.5) Platelet Count 347 x10^3/uL (140-400) Neutrophils (%) (Auto) 54 % (31-73) Lymphocytes (%) (Auto) 37 % (24-48) Monocytes (%) (Auto) 7 % (0-9) Eosinophils (%) (Auto) 1 % (0-3) Basophils (%) (Auto) 1 % (0-3) Neutrophils # (Auto) 3.3 x10^3uL (1.8-7.7) Lymphocytes # (Auto) 2.3 x10^3/uL (1.0-4.8) Monocytes # (Auto) 0.5 x10^3/uL (0.0-1.1) Eosinophils # (Auto) 0.0 x10^3/uL (0.0-0.7) Basophils # (Auto) 0.0 x10^3/uL (0.0-0.2) Sodium Level 140 mmol/L (136-145) Potassium Level 3.4 mmol/L (3.5-5.1) Chloride Level 106 mmol/L (98-107) Carbon Dioxide Level 21 mmol/L (21-32) Anion Gap 13 (6-14) Blood Urea Nitrogen 7 mg/dL (7-20) Creatinine 0.7 mg/dL (0.6-1.0) Estimated GFR (Cockcroft-Gault) 82.3 BUN/Creatinine Ratio 10 (6-20) Glucose Level 174 mg/dL (70-99) Calcium Level 8.6 mg/dL (8.5-10.1) Total Bilirubin 0.3 mg/dL (0.2-1.0) Aspartate Amino Transf (AST/SGOT) 25 U/L (15-37) Alanine Aminotransferase (ALT/SGPT) 29 U/L (14-59) Alkaline Phosphatase 110 U/L (46-116) Total Protein 7.1 g/dL (6.4-8.2) Albumin 3.6 g/dL (3.4-5.0) Albumin/Globulin Ratio 1.0 (1.0-1.7) Assessment/Plan Assessment/Plan Abd pain- with n/v s/p lauren, gastroparesis leads differential. partial SBo, OHD with RCA involvement, and/or PUD in differential Plan sb series to further assess Full note dictated JOCY CAMACHO MD Mar 30, 2018 14:33
[2018-03-30 15:00] VITALS: BP 150/82
[2018-03-30 19:00] VITALS: BP 133/89
[2018-03-30] MEDS: ZOLPIDEM 5 MG TABLET. PO PRN (20:40)
[2018-03-30] MEDS: ATORVASTATIN CALCIUM 40 MG TABLET. PO SCH (20:41)
[2018-03-30] MEDS: DICYCLOMINE HCL 10 MG CAPSULE PO PRN (20:41)
[2018-03-30 23:00] VITALS: BP 148/71
[2018-03-30] MEDS: INSULIN GLARGINE 300 UNITS/3 ML INSULN.PEN. SQ SCH (23:43)
--- NOTE | 2018-03-31 02:54 | CONS ---
DATE OF CONSULTATION: 03/30/2018 GASTROENTEROLOGY CONSULTATION REASON FOR CONSULTATION: Nausea, vomiting, abdominal pain and history of gastroparesis. HISTORY OF PRESENT ILLNESS: This is a 72-year-old female whose past medical history is significant for hypertension, hyperlipidemia, diabetes type 2 and organic heart disease. who is status post previous surgeries, admitted with a 2-day history of epigastric pain, intractable nausea and vomiting. She normally takes Zofran and metoclopramide before meals and she has had increased difficulties here in the past several days. Due to this, she has been admitted for further evaluation and care. She is also status post prior cholecystectomy. For continued symptoms, consultation is requested. PAST MEDICAL HISTORY: Organic heart disease, hypertension, hyperlipidemia, diabetes and epilepsy. ALLERGIES: INCLUDE ERYTHROMYCIN, PENICILLIN, IODINE, ATENOLOL, LEVAQUIN AND LYRICA. MEDICATIONS: On admission include Actos, amlodipine, aspirin, atorvastatin, Plavix, fentanyl, hydrochlorothiazide, Imdur, Keppra, levothyroxine, losartan, metoclopramide, insulin, Protonix, Ranexa, sodium bicarbonate, Carafate, vitamin B and Zofran. PAST SURGICAL HISTORY: Cholecystectomy, appendectomy, tonsillectomy, bypass surgery, knee arthroplasty and PTCAs. SOCIAL HISTORY: She is . She does not drink or smoke. Her daughter is a sponge fisherman. FAMILY HISTORY: Significant for myocardial infarction in the father as well as the mother. REVIEW OF SYSTEMS: Per records. PHYSICAL EXAMINATION: GENERAL: Reveals a well-nourished, well-developed female. VITAL SIGNS: Temperature is 97.7, pulse 59, respiration rate 16 and blood pressure is 124/57. HEENT EXAMINATION: Reveals normocephalic, atraumatic head. Pupils and extraocular muscles are not tested. Sclerae anicteric. NECK: Supple. LUNGS: Clear. CARDIOVASCULAR EXAMINATION: Reveals an S1, S2, without S3, S4 or appreciable murmur. ABDOMEN: Exam reveals a soft abdomen. Normal bowel sounds, without appreciable hepatosplenomegaly. There is epigastric tenderness to deep palpation. Multiple surgical incisions are noted. EXTREMITIES: Exam reveals no cyanosis, clubbing or edema. LABORATORY STUDIES: Hemoglobin 11.9, hematocrit 35.1, white count is 6.2 and platelet count 347,000. Sodium 140, potassium 3.4, chloride 106, bicarb 21, BUN 7, creatinine 0.7, glucose is 174 and calcium 5.6. Total bilirubin 0.3, AST 25, ALT of 25 and alkaline phosphatase 110. Total protein 7.1, albumin 3.[address] of the abdomen and pelvis shows compression fractures, previous multiple operations. No mass, obstruction or free air. IMPRESSION AND PLAN: Gastroparesis with abdominal pain, intractable nausea and vomiting of, unresponsive to nitrates. Could be secondary to paraesophageal hernia, intermittent gastric volvulus and/or microvascular coronary artery disease. Therefore, recommend small bowel series to further assess in the a.m. I would like to thank Dr. Masters for allowing Dr. Edwards and myself to participate in this patient's care. JOCY CAMACHO MD DR: GIOVANNI/mandy JOB#: [id number] / [id number] DENICE Grossman MD, Dr.
[2018-03-31] MEDS: oxyCODONE IR 5 MG TABLET PO PRN ×3 (05:24→18:00)
[2018-03-31] MEDS: DICYCLOMINE HCL 10 MG CAPSULE PO PRN (05:25)
[2018-03-31] MEDS: LEVOTHYROXINE 75 MCG TABLET PO SCH (05:25)
[2018-03-31] MEDS: METOCLOPRAMIDE HCL 10 MG/2 ML VIAL. IV SCH ×4 (05:25→23:44)
[2018-03-31] MEDS: ONDANSETRON PF 4 MG/2 ML VIAL. IV SCH ×4 (05:25→23:45)
[2018-03-31 07:00] VITALS: BP 132/62
[2018-03-31] MEDS: PANTOPRAZOLE 40 MG TABLET.DR. PO SCH (07:30)
[2018-03-31] MEDS: SUCRALFATE 1 GM/10 ML ORAL.SUSP. PEG SCH ×4 (07:30→19:24)
[2018-03-31] MEDS: ASPIRIN CHEWABLE 81 MG TABLET. PO SCH (08:00)
[2018-03-31] MEDS: LORazepam 1 MG TABLET PO PRN ×3 (08:29→21:01)
[2018-03-31 08:39] LABS: BASO # 0.1 x10^3/uL (0.0-0.2); BASO % 1 % (0-3); EOS # 0.1 x10^3/uL (0.0-0.7); EOS % 1 % (0-3); HEMOGLOBIN 12.8 g/dL (12.0-15.5); LYMPH # 1.7 x10^3/uL (1.0-4.8); LYMPH % 21 % (24-48); MEAN CORPUSCULAR HEMOGLOBIN 33 pg (25-35); MEAN CORPUSCULAR HGB CONC 35 g/dL (31-37); MEAN CORPUSCULAR VOLUME 94 fL (79-100); MONO # 0.5 x10^3/uL (0.0-1.1); MONO % 7 % (0-9); NEUT # 5.7 x10^3uL (1.8-7.7); NEUT % 71 % (31-73); PLATELET COUNT 358 x10^3/uL (140-400); RED BLOOD COUNT 3.95 x10^6/uL (3.50-5.40); RED CELL DISTRIBUTION WIDTH 17.2 % (11.5-14.5); WHITE BLOOD COUNT 8.1 x10^3/uL (4.0-11.0)
[2018-03-31 08:46] LABS: CALCIUM 8.7 mg/dL (8.5-10.1); CREATININE 0.7 mg/dL (0.6-1.0); GFR 82.3; MAGNESIUM 1.6 mg/dL (1.8-2.4); POTASSIUM 3.4 mmol/L (3.5-5.1)
--- NOTE | 2018-03-31 08:48 | PDOC ---
PROGRESS NOTES Subjective Subjective bentyl helped with abdominal cramps. ate breakfast. wants to advance diet. no vomiting. Objective Objective Vital Signs Date Time Temp Pulse Resp B/P (MAP) Pulse Ox O2 Delivery O2 Flow Rate FiO2 03/31/18 07:00 97.5 75 18 132/62 (85) 97 Room Air 97.5 Intake and Output 03/31/18 07:00 Intake Total 0 ml Balance 0 ml Intake Oral 0 ml # Voids 16 Physical Exam Abdomen: Soft Heart: Regular rate, Normal S1, Normal S2 Extremities: No edema General: Alert HEENT: Atraumatic Lungs: Clear to auscultation Neuro: Normal speech Psych/Mental Status: Mental status NL Skin: No rashes Assessment Assessment Problems1. diabetic gastroparesis with intractable nausea and vomiting. improved 2. Epigastric abdominal pain. 3. 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 4. Hypertension. 5. Hyperlipidemia. 6. Coronary artery disease. 7. Hypothyroidism. hypokalemia pyuria Medical Problems: (1) Intractable vomiting Status: Acute Plan Plan of Care lab pending and lab tomorrow continue iv zofran and iv metoclopramide continue prn bentyl increase insulin advance to ada diet Comment Review of Relevant I have reviewed the following items maldonado (where applicable) has been applied. Labs Laboratory Tests Test 03/29/18 12:17 03/29/18 12:30 03/29/18 20:59 03/30/18 07:10 Urine Collection Type Unknown Urine Color Yellow Urine Clarity Clear Urine pH 5.0 Urine Specific Godwin >=1.030 Urine Protein 30 mg/dL (NEG-TRACE) Urine Glucose (UA) >=1000 mg/dL (NEG) Urine Ketones (Stick) Negative mg/dL (NEG) Urine Blood Negative (NEG) Urine Nitrite Negative (NEG) Urine Bilirubin Negative (NEG) Urine Urobilinogen Dipstick 0.2 mg/dL (0.2 mg/dL) Urine Leukocyte Esterase Trace (NEG) Urine RBC 0 /HPF (0-2) Urine WBC 11-20 /HPF (0-4) Urine Squamous Epithelial Cells Mod /LPF Urine Renal Epithelial Cells Occ /LPF Urine Bacteria 0 /HPF (0-FEW) Urine Yeast Present /HPF White Blood Count 7.5 x10^3/uL (4.0-11.0) 6.2 x10^3/uL (4.0-11.0) Red Blood Count 4.40 x10^6/uL (3.50-5.40) 3.73 x10^6/uL (3.50-5.40) Hemoglobin 14.1 g/dL (12.0-15.5) 11.9 g/dL (12.0-15.5) Hematocrit 41.1 % (36.0-47.0) 35.1 % (36.0-47.0) Mean Corpuscular Volume 94 fL (79-100) 94 fL (79-100) Mean Corpuscular Hemoglobin 32 pg (25-35) 32 pg (25-35) Mean Corpuscular Hemoglobin Concent 34 g/dL (31-37) 34 g/dL (31-37) Red Cell Distribution Width 17.1 % (11.5-14.5) 17.2 % (11.5-14.5) Platelet Count 411 x10^3/uL (140-400) 347 x10^3/uL (140-400) Neutrophils (%) (Auto) 61 % (31-73) 54 % (31-73) Lymphocytes (%) (Auto) 31 % (24-48) 37 % (24-48) Monocytes (%) (Auto) 7 % (0-9) 7 % (0-9) Eosinophils (%) (Auto) 0 % (0-3) 1 % (0-3) Basophils (%) (Auto) 1 % (0-3) 1 % (0-3) Neutrophils # (Auto) 4.6 x10^3uL (1.8-7.7) 3.3 x10^3uL (1.8-7.7) Lymphocytes # (Auto) 2.3 x10^3/uL (1.0-4.8) 2.3 x10^3/uL (1.0-4.8) Monocytes # (Auto) 0.5 x10^3/uL (0.0-1.1) 0.5 x10^3/uL (0.0-1.1) Eosinophils # (Auto) 0.0 x10^3/uL (0.0-0.7) 0.0 x10^3/uL (0.0-0.7) Basophils # (Auto) 0.0 x10^3/uL (0.0-0.2) 0.0 x10^3/uL (0.0-0.2) Sodium Level 133 mmol/L (136-145) 140 mmol/L (136-145) Potassium Level 3.5 mmol/L (3.5-5.1) 3.4 mmol/L (3.5-5.1) Chloride Level 101 mmol/L (98-107) 106 mmol/L (98-107) Carbon Dioxide Level 17 mmol/L (21-32) 21 mmol/L (21-32) Anion Gap 15 (6-14) 13 (6-14) Blood Urea Nitrogen 11 mg/dL (7-20) 7 mg/dL (7-20) Creatinine 0.9 mg/dL (0.6-1.0) 0.7 mg/dL (0.6-1.0) Estimated GFR (Cockcroft-Gault) 61.5 82.3 Glucose Level 250 mg/dL (70-99) 174 mg/dL (70-99) Lactic Acid Level 1.8 mmol/L (0.4-2.0) Calcium Level 9.9 mg/dL (8.5-10.1) 8.6 mg/dL (8.5-10.1) Total Bilirubin 0.3 mg/dL (0.2-1.0) 0.3 mg/dL (0.2-1.0) Direct Bilirubin 0.1 mg/dL (0.0-0.2) Aspartate Amino Transf (AST/SGOT) 17 U/L (15-37) 25 U/L (15-37) Alanine Aminotransferase (ALT/SGPT) 26 U/L (14-59) 29 U/L (14-59) Alkaline Phosphatase 146 U/L (46-116) 110 U/L (46-116) Total Protein 9.1 g/dL (6.4-8.2) 7.1 g/dL (6.4-8.2) Albumin 4.6 g/dL (3.4-5.0) 3.6 g/dL (3.4-5.0) Lipase 233 U/L (73-393) Glucose (Fingerstick) 183 mg/dL (70-99) BUN/Creatinine Ratio 10 (6-20) Albumin/Globulin Ratio 1.0 (1.0-1.7) Test 03/30/18 12:12 03/30/18 16:59 03/30/18 22:10 Glucose (Fingerstick) 229 mg/dL (70-99) 197 mg/dL (70-99) 212 mg/dL (70-99) Laboratory Tests Test 03/30/18 12:12 03/30/18 16:59 03/30/18 22:10 Glucose (Fingerstick) 229 mg/dL (70-99) 197 mg/dL (70-99) 212 mg/dL (70-99) Medications Current Medications Sodium Chloride 1,000 ml @ 1,000 mls/hr 1X ONCE IV Last administered on 13:28; Start 03/29/18 at 13:00; Stop 03/29/18 at 13:59; Status DC Morphine Sulfate (Morphine Sulfate) 6 mg 1X ONCE IV Last administered on at 13:27; Start 03/29/18 at 13:00; Stop 03/29/18 at 13:01; Status DC Ondansetron HCl (Zofran) 6 mg Q6HRS IV ; Start 03/29/18 at 15:00; Stop 03/29/18 at 15:05; Status DC Morphine Sulfate (Morphine Sulfate) 4 mg PRN Q2HR PRN IV PAIN Last administered on 03/30/18at 06:01; Start 03/29/18 at 14:15; Stop 03/30/18 at 14:14 ; Status DC Sodium Chloride 1,000 ml @ 60 mls/hr [id number] IV Last administered on at 06:05; Start 03/29/18 at 15:00; Stop 03/30/18 at 12:17; Status DC Metoclopramide HCl (Reglan Vial) 10 mg Q6HRS IV Last administered on 03/31/18at 05:25; Start 03/29/18 at 14:30 Pioglitazone HCl (Actos) 45 mg DAILY PO Last administered on 03/30/18at 08:14; Start 03/29/18 at 14:30 Zolpidem Tartrate (Ambien) 5 mg PRN QHS PRN PO INSOMNIA Last administered on at 20:40; Start 03/29/18 at 14:15 Pantoprazole Sodium (Protonix) 40 mg BIDAC PO ; Start 03/29/18 at 16:30; Stop at 16:30; Status DC Metoprolol Tartrate (Lopressor) 100 mg BID PO ; Start 03/29/18 at 14:30; Stop at 15:05; Status DC Losartan Potassium (Cozaar) 100 mg DAILY PO Last administered on 03/30/18at 08: 16; Start 03/29/18 at 15:00 Lorazepam (Ativan) 1 mg TID PO ; Start 03/29/18 at 15:00; Stop 03/29/18 at 15:05 ; Status DC Levetiracetam (Keppra) 1,000 mg BID PO Last administered on 03/30/18at 20:40; Start 03/29/18 at 21:00 Clopidogrel Bisulfate (Plavix) 75 mg DAILY PO Last administered on 03/30/18at 08 :17; Start 03/29/18 at 15:00 Amlodipine Besylate (Norvasc) 10 mg DAILY PO Last administered on 03/30/18at 08: 16; Start 03/29/18 at 15:00 Insulin Human Lispro (HumaLOG) 8 units TIDWMEALS SQ Last administered on at 17:18; Start 03/29/18 at 17:00; Stop 03/31/18 at 08:46; Status DC Insulin Glargine (Lantus) 8 units QHS SQ Last administered on 03/30/18at 23:43; Start 03/29/18 at 21:00; Stop 03/31/18 at 08:46; Status DC Atorvastatin Calcium (Lipitor) 80 mg QHS PO ; Start 03/29/18 at 21:00; Stop at 21:00; Status DC Levetiracetam (Keppra) 1,000 mg 1X ONCE PO Last administered on 03/29/18at 16: 29; Start 03/29/18 at 15:00; Stop 03/29/18 at 15:01; Status DC Atorvastatin Calcium (Lipitor) 40 mg QHS PO Last administered on 03/30/18at 20: 41; Start 03/29/18 at 21:00 Lorazepam (Ativan) 1 mg PRN TID PRN PO ANXIETY / AGITATION Last administered on 03/31/18 08:29; Start 03/29/18 at 15:00 Ondansetron HCl (Zofran) 4 mg Q6HRS IV Last administered on 03/31/18 05:25; Start 03/29/18 at 18:00 Metoprolol Succinate (Toprol Xl) 50 mg DAILY PO Last administered on 03/30/18 08:18; Start 03/29/18 at 16:00 Multivitamins (Thera M Plus) 1 tab DAILY PO Last administered on 03/30/18 08: 15; Start 03/29/18 at 16:00 Nitroglycerin (Nitrostat) 0.4 mg PRN Q5MIN PRN SL CHEST PAIN; Start 03/29/18 at 15:00 Levothyroxine Sodium (Synthroid) 75 mcg DAILY07 PO Last administered on 05:25; Start 03/29/18 at 16:00 Isosorbide Mononitrate (Imdur) 60 mg DAILY PO ; Start 03/29/18 at 16:00 Fentanyl (Duragesic 25mcg/ Hr Patch) 1 patch Q3DAYS TD Last administered on 16:34; Start 03/29/18 at 17:00 Amlodipine Besylate (Norvasc) 10 mg DAILY PO ; Start 03/30/18 at 09:00; Status UNV Aspirin (Children'S Aspirin) 81 mg DAILYWBKFT PO Last administered on 08:13; Start 03/29/18 at 16:00 Hydrochlorothiazide (Hydrodiuril) 25 mg DAILY PO Last administered on at 08:14; Start 03/29/18 at 16:00 Acetaminophen (Tylenol) 650 mg PRN Q6HRS PRN PO MILD PAIN / TEMP; Start at 15:00 Oxycodone HCl (Roxicodone) 10 mg PRN TID PRN PO MODERATE-SEVERE PAIN Last administered on 03/31/18 05:24; Start 03/29/18 at 15:00 Pantoprazole Sodium (Protonix) 40 mg DAILYAC PO Last administered on 03/30/18 08:17; Start 03/29/18 at 16:00 Ranolazine (Ranexa) 1,000 mg BID PO Last administered on 03/30/18at 20:41; Start 03/29/18 at 21:00 Sodium Bicarbonate (Sodium Bicarbonate) 650 mg BID PO Last administered on 03/30at 20:41; Start 03/29/18 at 21:00 Sucralfate (Carafate) 1 gm QIDACHS PEG ; Start 03/29/18 at 16:30 Cyanocobalamin (Vitamin B-12) 1,000 mcg DAILY PO Last administered on at 08:16; Start 03/29/18 at 16:00 Al Hydroxide/Mg Hydroxide (Mylanta Plus Xs) 30 ml PRN Q2HR PRN PO HEARTBURN / GAS; Start 03/29/18 at 15:00 Dicyclomine HCl (Bentyl) 10 mg PRN Q6HRS PRN PO abdominal cramps Last administered on 03/31/18at 05:25; Start 03/30/18 at 12:15 Potassium Chloride (Klor-Con) 20 meq 1X ONCE PO Last administered on at 13:57; Start 03/30/18 at 13:00; Stop 03/30/18 at 13:01; Status DC Insulin Glargine (Lantus) 12 units QHS SQ ; Start 03/31/18 at 21:00; Status UNV Insulin Human Lispro (HumaLOG) 12 units TIDWMEALS SQ ; Start 03/31/18 at 12:00; Status UNV Active Scripts Active Naproxen 500 Mg Tablet 1 Tab PO BID PRN Vitamin B-12 (Cyanocobalamin (Vitamin B-12)) 1,000 Mcg Tablet 1,000 Mcg PO DAILY 30 Days Levemir Flextouch (Insulin Detemir) 100 Unit/1 Ml Insuln.pen 6 Units SQ QHS 30 Days Novolog Flexpen (Insulin Aspart) 100 Unit/1 Ml Insuln.pen 6 Units SQ TIDWMEALS 30 Days Metoclopramide Hcl 10 Mg/10 Ml Solution 10 Mg PO TIDACHC 30 Days Aspirin 325 Mg Tablet 81 Mg PO DAILYWBKFT 30 Days Cozaar (Losartan Potassium) 50 Mg Tablet 100 Mg PO DAILY 30 Days Amlodipine Besylate 5 Mg Tablet 5 Mg PO DAILY 30 Days Metoprolol Tartrate 50 Mg Tablet 100 Mg PO BID 30 Days Nitrostat (Nitroglycerin) 0.4 Mg Tab.subl 0.4 Mg SL PRN Q5MIN PRN 30 Days Isosorbide Mononitrate Er (Isosorbide Mononitrate) 30 Mg Tab.er.24h 60 Mg PO DAILY 30 Days Atorvastatin Calcium 40 Mg Tablet 40 Mg PO QHS 30 Days Ranexa (Ranolazine) 500 Mg Tab.er.12h 1,000 Mg PO BID 30 Days Keppra (Levetiracetam) 500 Mg Tablet 1,000 Mg PO BID 30 Days [Pioglitazone Hcl] 15 MG Tablet 45 Mg PO DAILY Lorazepam 1 Mg Tablet 1 Mg PO PRN TID PRN Pantoprazole Sodium 40 Mg Tablet.dr 40 Mg PO BIDAC Ondansetron Odt (Ondansetron) 4 Mg Tab.rapdis 4 Mg PO TIDAC FENTANYL 25mcg/hr (Fentanyl) 1 Each Patch.td72 1 Patch TD Q3DAYS Reported Ambien (Zolpidem Tartrate) 5 Mg Tablet 5 Mg PO HS Clopidogrel (Clopidogrel Bisulfate) 75 Mg Tablet 75 Mg PO DAILY Vitals/I & O Vital Sign - Last 24 Hours 03/30/18 03/30/18 03/30/18 03/30/18 11:00 13:57 15:00 15:00 Temp 97.7 98.1 97.7 98.1 Pulse 59 71 Resp 18 17 18 18 B/P (MAP) 124/57 (79) 150/82 (104) Pulse Ox 99 99 99 97 O2 Delivery Room Air Room Air Room Air Room Air 03/30/18 03/30/18 03/30/18 03/30/18 19:00 20:00 20:41 23:00 Temp 97.5 98.1 97.5 98.1 Pulse 67 71 72 Resp 18 18 B/P (MAP) 133/89 (104) 150/82 148/71 (96) Pulse Ox 95 91 O2 Delivery Room Air Room Air Room Air 03/31/18 07:00 Temp 97.5 97.5 Pulse 75 Resp 18 B/P (MAP) 132/62 (85) Pulse Ox 97 O2 Delivery Room Air Intake and Output 03/30/18 03/30/18 03/31/18 15:00 23:00 07:00 Intake Total 0 ml Balance 0 ml ZINA,DENICE R MD Mar 31, 2018 08:48
[2018-03-31] MEDS: levETIRAcetam 500 MG TABLET PO SCH ×2 (08:52→20:56)
[2018-03-31] MEDS: ISOSORBIDE MONONITRATE ER 30 MG TAB.ER.24H PO SCH (09:00)
[2018-03-31] MEDS: PIOGLITAZONE 15 MG TABLET. PO SCH (09:00)
[2018-03-31] MEDS ORDERED: BARIUM SULFATE 340 GM SUSPENSION. PO ONE (09:00)
[2018-03-31] MEDS: SODIUM BICARBONATE 650 MG TABLET. PO SCH ×2 (09:00→20:56)
[2018-03-31] MEDS: hydroCHLOROthiazide 25 MG TABLET PO SCH (09:00)
[2018-03-31] MEDS: CYANOCOBALAMIN (VITAMIN B-12) 1,000 MCG TABLET. PO SCH (09:00)
[2018-03-31] MEDS: RANOLAZINE 500 MG TAB.ER.12H PO SCH ×2 (09:00→20:57)
[2018-03-31] MEDS: MULTIVITAMIN with MINERAL TABLET. PO SCH (09:00)
[2018-03-31] MEDS ORDERED: SIMETHICONE/SOD BICARB/CITRIC ACID PACKET. PO ONE (09:00)
[2018-03-31] MEDS ORDERED: BARIUM SULFATE 60% 355 ML SUSP PO ONE (09:00)
[2018-03-31 11:00] VITALS: BP 140/67
[2018-03-31] MEDS: INSULIN LISPRO 300 UNITS/3 ML INSULN.PEN. SQ SCH ×2 (12:00→17:00)
--- NOTE | 2018-03-31 13:28 | PDOC ---
Objective: Objective: D/w RN - tolerating PO, says she wants to leave by tomorrow so she can see her PCP to refill pain meds. On Sucralfate, PPI, IV Reglan. Vital Signs: Vital Signs Date Time Temp Pulse Resp B/P (MAP) Pulse Ox O2 Delivery O2 Flow Rate FiO2 03/31/18 13:03 17 98 Room Air 03/31/18 11:00 96.8 76 140/67 (91) 96.8 Labs: Laboratory Tests Test 03/30/18 16:59 03/30/18 22:10 03/31/18 08:28 03/31/18 11:02 Glucose (Fingerstick) 197 mg/dL 212 mg/dL 136 mg/dL White Blood Count 8.1 x10^3/uL Red Blood Count 3.95 x10^6/uL Hemoglobin 12.8 g/dL Hematocrit 37.0 % Mean Corpuscular Volume 94 fL Mean Corpuscular Hemoglobin 33 pg Mean Corpuscular Hemoglobin Concent 35 g/dL Red Cell Distribution Width 17.2 % Platelet Count 358 x10^3/uL Neutrophils (%) (Auto) 71 % Lymphocytes (%) (Auto) 21 % Monocytes (%) (Auto) 7 % Eosinophils (%) (Auto) 1 % Basophils (%) (Auto) 1 % Neutrophils # (Auto) 5.7 x10^3uL Lymphocytes # (Auto) 1.7 x10^3/uL Monocytes # (Auto) 0.5 x10^3/uL Eosinophils # (Auto) 0.1 x10^3/uL Basophils # (Auto) 0.1 x10^3/uL Sodium Level 140 mmol/L Potassium Level 3.4 mmol/L Chloride Level 104 mmol/L Carbon Dioxide Level 26 mmol/L Anion Gap 10 Blood Urea Nitrogen 6 mg/dL Creatinine 0.7 mg/dL Estimated GFR (Cockcroft-Gault) 82.3 Glucose Level 163 mg/dL Calcium Level 8.7 mg/dL Magnesium Level 1.6 mg/dL PE: Out of room - no exam. A/P: Abd pain, n/v - resolved -h/o gastroparesis and GERD Chronic pain -- Tolerating PO. Could change Reglan to PO. Await pending imaging. AMEENA CASTRO Mar 31, 2018 13:28
[2018-03-31 15:15] VITALS: BP 158/78
--- NOTE | 2018-03-31 15:35 | RAD ---
Double contrast upper GI with small bowel follow-through, 03/31/2018: History: Nausea and vomiting The study was performed utilizing high density barium and gas-forming crystals followed by regular liquid barium. 3.2 minutes of fluoroscopy time was utilized. 13 dynamic and static fluoroscopic spot images were recorded. The preliminary abdominal image demonstrates a nonspecific gas pattern. Spinal stimulator leads are in place. There is vertebroplasty change evident in the upper lumbar spine. The swallowing mechanism is intact. There is a prominent cricopharyngeal impression in the cervical esophagus without evidence of obstruction to flow of the barium through that region. The esophageal peristalsis is within normal limits. A small hiatal hernia is present. No gastroesophageal reflux was demonstrated. The stomach and duodenal bulb show no evidence of ulceration or mass. The small bowel loops are of normal caliber with no evidence of thickening of their folds. There is normal transit of the barium through the small bowel to the colon. The terminal ileum is unremarkable. IMPRESSION: 1. Prominent cricopharyngeal impression in the cervical esophagus. 2. Small hiatal hernia. 3. No other significant abnormality is detected.
[2018-03-31] MEDS: CLOPIDOGREL BISULFATE 75 MG TABLET PO SCH (18:00)
[2018-03-31] MEDS: LOSARTAN POTASSIUM 50 MG TABLET. PO SCH (18:00)
[2018-03-31] MEDS: amLODIPine BESYLATE 10 MG TABLET PO SCH (18:01)
[2018-03-31] MEDS: METOPROLOL SUCC 24HR ER 50 MG TAB.ER.24H. PO SCH (18:01)
[2018-03-31 19:00] VITALS: BP 117/63
[2018-03-31] MEDS: ATORVASTATIN CALCIUM 40 MG TABLET. PO SCH (20:57)
[2018-03-31] MEDS: ZOLPIDEM 5 MG TABLET. PO PRN (21:01)
[2018-03-31] MEDS: INSULIN GLARGINE 300 UNITS/3 ML INSULN.PEN. SQ SCH (21:07)
[2018-03-31 22:45] VITALS: BP 146/69
[2018-04-01] MEDS: SUCRALFATE 1 GM/10 ML ORAL.SUSP. PEG SCH ×5 (00:20→20:46)
[2018-04-01 03:00] VITALS: BP 124/54
[2018-04-01] MEDS: ONDANSETRON PF 4 MG/2 ML VIAL. IV SCH ×4 (04:08→20:42)
[2018-04-01] MEDS: METOCLOPRAMIDE HCL 10 MG/2 ML VIAL. IV SCH ×6 (04:08→20:41)
[2018-04-01] MEDS: oxyCODONE IR 5 MG TABLET PO PRN ×3 (04:08→16:43)
[2018-04-01] MEDS: PANTOPRAZOLE 40 MG TABLET.DR. PO SCH (04:08)
[2018-04-01] MEDS: LEVOTHYROXINE 75 MCG TABLET PO SCH (04:08)
[2018-04-01 07:00] VITALS: BP 142/64
[2018-04-01] MEDS: DICYCLOMINE HCL 10 MG CAPSULE PO PRN (08:20)
[2018-04-01] MEDS: SODIUM BICARBONATE 650 MG TABLET. PO SCH ×2 (08:21→20:39)
[2018-04-01] MEDS: PIOGLITAZONE 15 MG TABLET. PO SCH (08:21)
[2018-04-01] MEDS: CYANOCOBALAMIN (VITAMIN B-12) 1,000 MCG TABLET. PO SCH (08:21)
[2018-04-01] MEDS: MULTIVITAMIN with MINERAL TABLET. PO SCH (08:21)
[2018-04-01] MEDS: CLOPIDOGREL BISULFATE 75 MG TABLET PO SCH (08:22)
[2018-04-01] MEDS: levETIRAcetam 500 MG TABLET PO SCH ×2 (08:23→20:39)
[2018-04-01] MEDS: ISOSORBIDE MONONITRATE ER 30 MG TAB.ER.24H PO SCH (08:23)
[2018-04-01] MEDS: LORazepam 1 MG TABLET PO PRN ×3 (08:24→20:40)
[2018-04-01] MEDS: hydroCHLOROthiazide 25 MG TABLET PO SCH (08:24)
[2018-04-01] MEDS: ASPIRIN CHEWABLE 81 MG TABLET. PO SCH (08:24)
[2018-04-01] MEDS: LOSARTAN POTASSIUM 50 MG TABLET. PO SCH (08:24)
[2018-04-01] MEDS: amLODIPine BESYLATE 10 MG TABLET PO SCH (08:25)
[2018-04-01] MEDS: RANOLAZINE 500 MG TAB.ER.12H PO SCH ×2 (08:26→20:40)
[2018-04-01] MEDS: METOPROLOL SUCC 24HR ER 50 MG TAB.ER.24H. PO SCH (08:27)
[2018-04-01] MEDS: fentaNYL 25MCG/HR PATCH 1 PATCH PATCH.TD72 TD SCH (08:30)
[2018-04-01] MEDS: INSULIN LISPRO 300 UNITS/3 ML INSULN.PEN. SQ SCH ×3 (08:36→17:41)
[2018-04-01 11:00] VITALS: BP 122/63
--- NOTE | 2018-04-01 12:02 | PDOC ---
Subjective: Subjective: Seen earlier when unable to use [employer]. Keeping food down, still has typical pain and nausea. Objective: Vital Signs: Vital Signs Date Time Temp Pulse Resp B/P (MAP) Pulse Ox O2 Delivery O2 Flow Rate FiO2 04/01/18 09:30 Room Air 04/01/18 08:27 73 142/64 04/01/18 07:00 98.5 18 93 98.5 Labs: Laboratory Tests Test 03/31/18 16:11 03/31/18 20:37 04/01/18 07:32 04/01/18 11:36 Glucose (Fingerstick) 140 mg/dL 166 mg/dL 166 mg/dL 233 mg/dL Imaging: UGI IMPRESSION: 1. Prominent cricopharyngeal impression in the cervical esophagus. 2. Small hiatal hernia. 3. No other significant abnormality is detected. PE: GEN: NAD LUNGS: CTAB HEART: RRR ABD: soft, maybe vaguely tender NEURO/PSYCH: A & O 3 A/P: Chronic abd pain and nausea - stable Chronic pain - now worse in toes after fall -- On IV Reglan Q 6 - will change so receives before meals - could consider changing from IV to susp. ?need for Carafate MILAGROS-AMEENA GRANT Apr 01, 2018 12:02
[2018-04-01] MEDS: ACETAMINOPHEN 325 MG TABLET. PO PRN (14:02)
[2018-04-01 15:00] VITALS: BP 131/66
--- NOTE | 2018-04-01 17:09 | PDOC ---
PROGRESS NOTES Subjective Subjective seen earlier. progress note dictated as computer was down at the time Objective Objective Vital Signs Date Time Temp Pulse Resp B/P (MAP) Pulse Ox O2 Delivery O2 Flow Rate FiO2 04/01/18 16:43 Room Air 04/01/18 11:00 98.4 72 18 122/63 (82) 95 98.4 Intake and Output 04/01/18 07:00 # Voids 6 Assessment Assessment Problems Medical Problems: (1) Intractable vomiting Status: Acute Comment Review of Relevant I have reviewed the following items maldonado (where applicable) has been applied. Labs Laboratory Tests Test 03/30/18 22:10 03/31/18 08:28 03/31/18 11:02 03/31/18 16:11 Glucose (Fingerstick) 212 mg/dL (70-99) 136 mg/dL (70-99) 140 mg/dL (70-99) White Blood Count 8.1 x10^3/uL (4.0-11.0) Red Blood Count 3.95 x10^6/uL (3.50-5.40) Hemoglobin 12.8 g/dL (12.0-15.5) Hematocrit 37.0 % (36.0-47.0) Mean Corpuscular Volume 94 fL (79-100) Mean Corpuscular Hemoglobin 33 pg (25-35) Mean Corpuscular Hemoglobin Concent 35 g/dL (31-37) Red Cell Distribution Width 17.2 % (11.5-14.5) Platelet Count 358 x10^3/uL (140-400) Neutrophils (%) (Auto) 71 % (31-73) Lymphocytes (%) (Auto) 21 % (24-48) Monocytes (%) (Auto) 7 % (0-9) Eosinophils (%) (Auto) 1 % (0-3) Basophils (%) (Auto) 1 % (0-3) Neutrophils # (Auto) 5.7 x10^3uL (1.8-7.7) Lymphocytes # (Auto) 1.7 x10^3/uL (1.0-4.8) Monocytes # (Auto) 0.5 x10^3/uL (0.0-1.1) Eosinophils # (Auto) 0.1 x10^3/uL (0.0-0.7) Basophils # (Auto) 0.1 x10^3/uL (0.0-0.2) Sodium Level 140 mmol/L (136-145) Potassium Level 3.4 mmol/L (3.5-5.1) Chloride Level 104 mmol/L (98-107) Carbon Dioxide Level 26 mmol/L (21-32) Anion Gap 10 (6-14) Blood Urea Nitrogen 6 mg/dL (7-20) Creatinine 0.7 mg/dL (0.6-1.0) Estimated GFR (Cockcroft-Gault) 82.3 Glucose Level 163 mg/dL (70-99) Calcium Level 8.7 mg/dL (8.5-10.1) Magnesium Level 1.6 mg/dL (1.8-2.4) Test 03/31/18 20:37 04/01/18 07:32 04/01/18 11:36 Glucose (Fingerstick) 166 mg/dL (70-99) 166 mg/dL (70-99) 233 mg/dL (70-99) Laboratory Tests Test 03/31/18 20:37 04/01/18 07:32 04/01/18 11:36 Glucose (Fingerstick) 166 mg/dL (70-99) 166 mg/dL (70-99) 233 mg/dL (70-99) Microbiology 03/29/18 Urine Culture - Final, Complete 03/29/18 Urine Culture Result 1 (JUDY) - Final, Complete Medications Current Medications Sodium Chloride 1,000 ml @ 1,000 mls/hr 1X ONCE IV Last administered on at 13:28; Start 03/29/18 at 13:00; Stop 03/29/18 at 13:59; Status DC Morphine Sulfate (Morphine Sulfate) 6 mg 1X ONCE IV Last administered on at 13:27; Start 03/29/18 at 13:00; Stop 03/29/18 at 13:01; Status DC Ondansetron HCl (Zofran) 6 mg Q6HRS IV ; Start 03/29/18 at 15:00; Stop 03/29/18 at 15:05; Status DC Morphine Sulfate (Morphine Sulfate) 4 mg PRN Q2HR PRN IV PAIN Last administered on 03/30/18at 06:01; Start 03/29/18 at 14:15; Stop 03/30/18 at 14:14 ; Status DC Sodium Chloride 1,000 ml @ 60 mls/hr [id number] IV Last administered on at 06:05; Start 03/29/18 at 15:00; Stop 03/30/18 at 12:17; Status DC Metoclopramide HCl (Reglan Vial) 10 mg Q6HRS IV Last administered on 04/01/18at 04:08; Start 03/29/18 at 14:30; Stop 04/01/18 at 12:02; Status DC Pioglitazone HCl (Actos) 45 mg DAILY PO Last administered on 04/01/18at 08:21; Start 03/29/18 at 14:30 Zolpidem Tartrate (Ambien) 5 mg PRN QHS PRN PO INSOMNIA Last administered on at 21:01; Start 03/29/18 at 14:15 Pantoprazole Sodium (Protonix) 40 mg BIDAC PO ; Start 03/29/18 at 16:30; Stop at 16:30; Status DC Metoprolol Tartrate (Lopressor) 100 mg BID PO ; Start 03/29/18 at 14:30; Stop at 15:05; Status DC Losartan Potassium (Cozaar) 100 mg DAILY PO Last administered on 04/01/18at 08: 24; Start 03/29/18 at 15:00 Lorazepam (Ativan) 1 mg TID PO ; Start 03/29/18 at 15:00; Stop 03/29/18 at 15:05 ; Status DC Levetiracetam (Keppra) 1,000 mg BID PO Last administered on 04/01/18at 08:23; Start 03/29/18 at 21:00 Clopidogrel Bisulfate (Plavix) 75 mg DAILY PO Last administered on 04/01/18at 08 :22; Start 03/29/18 at 15:00 Amlodipine Besylate (Norvasc) 10 mg DAILY PO Last administered on 04/01/18at 08: 25; Start 03/29/18 at 15:00 Insulin Human Lispro (HumaLOG) 8 units TIDWMEALS SQ Last administered on at 17:18; Start 03/29/18 at 17:00; Stop 03/31/18 at 08:46; Status DC Insulin Glargine (Lantus) 8 units QHS SQ Last administered on 03/30/18at 23:43; Start 03/29/18 at 21:00; Stop 03/31/18 at 08:46; Status DC Atorvastatin Calcium (Lipitor) 80 mg QHS PO ; Start 03/29/18 at 21:00; Stop at 21:00; Status DC Levetiracetam (Keppra) 1,000 mg 1X ONCE PO Last administered on 03/29/18at 16: 29; Start 03/29/18 at 15:00; Stop 03/29/18 at 15:01; Status DC Atorvastatin Calcium (Lipitor) 40 mg QHS PO Last administered on 03/31/18at 20: 57; Start 03/29/18 at 21:00 Lorazepam (Ativan) 1 mg PRN TID PRN PO ANXIETY / AGITATION Last administered on 04/01/18at 13:59; Start 03/29/18 at 15:00 Ondansetron HCl (Zofran) 4 mg Q6HRS IV Last administered on 04/01/18at 12:12; Start 03/29/18 at 18:00 Metoprolol Succinate (Toprol Xl) 50 mg DAILY PO Last administered on 04/01/18at 08:27; Start 03/29/18 at 16:00 Multivitamins (Thera M Plus) 1 tab DAILY PO Last administered on 04/01/18at 08: 21; Start 03/29/18 at 16:00 Nitroglycerin (Nitrostat) 0.4 mg PRN Q5MIN PRN SL CHEST PAIN; Start 03/29/18 at 15:00 Levothyroxine Sodium (Synthroid) 75 mcg DAILY07 PO Last administered on at 04:08; Start 03/29/18 at 16:00 Isosorbide Mononitrate (Imdur) 60 mg DAILY PO ; Start 03/29/18 at 16:00 Fentanyl (Duragesic 25mcg/ Hr Patch) 1 patch Q3DAYS TD Last administered on at 08:30; Start 03/29/18 at 17:00 Amlodipine Besylate (Norvasc) 10 mg DAILY PO ; Start 03/30/18 at 09:00; Status UNV Aspirin (Children'S Aspirin) 81 mg DAILYWBKFT PO Last administered on 08:24; Start 03/29/18 at 16:00 Hydrochlorothiazide (Hydrodiuril) 25 mg DAILY PO Last administered on 08:24; Start 03/29/18 at 16:00 Acetaminophen (Tylenol) 650 mg PRN Q6HRS PRN PO MILD PAIN / TEMP Last administered on 04/01/18 14:02; Start 03/29/18 at 15:00 Oxycodone HCl (Roxicodone) 10 mg PRN TID PRN PO MODERATE-SEVERE PAIN Last administered on 04/01/18 16:43; Start 03/29/18 at 15:00 Pantoprazole Sodium (Protonix) 40 mg DAILYAC PO Last administered on 04/01/18 04:08; Start 03/29/18 at 16:00 Ranolazine (Ranexa) 1,000 mg BID PO Last administered on 04/01/18 08:26; Start 03/29/18 at 21:00 Sodium Bicarbonate (Sodium Bicarbonate) 650 mg BID PO Last administered on 04/01 08:21; Start 03/29/18 at 21:00 Sucralfate (Carafate) 1 gm QIDACHS PEG ; Start 03/29/18 at 16:30 Cyanocobalamin (Vitamin B-12) 1,000 mcg DAILY PO Last administered on 08:21; Start 03/29/18 at 16:00 Al Hydroxide/Mg Hydroxide (Mylanta Plus Xs) 30 ml PRN Q2HR PRN PO HEARTBURN / GAS; Start 03/29/18 at 15:00 Dicyclomine HCl (Bentyl) 10 mg PRN Q6HRS PRN PO abdominal cramps Last administered on 04/01/18 08:20; Start 03/30/18 at 12:15 Potassium Chloride (Klor-Con) 20 meq 1X ONCE PO Last administered on 13:57; Start 03/30/18 at 13:00; Stop 03/30/18 at 13:01; Status DC Insulin Glargine (Lantus) 12 units QHS SQ Last administered on 03/31/18at 21:07 ; Start 03/31/18 at 21:00 Insulin Human Lispro (HumaLOG) 12 units TIDWMEALS SQ Last administered on at 12:21; Start 03/31/18 at 12:00 Barium Sulfate (Liquid E-Z Paque) 710 ml 1X ONCE PO Last administered on at 11:30; Start 03/31/18 at 09:00; Stop 03/31/18 at 09:01; Status DC Barium Sulfate (E-Z-Hd) 340 gm 1X ONCE PO Last administered on 03/31/18at 09:00 ; Start 03/31/18 at 09:00; Stop 03/31/18 at 09:01; Status DC Simethicone/ Sodium Bicarb/ Citric Ac (E-Z-Gas) 1 packet 1X ONCE PO Last administered on 03/31/18at 11:30; Start 03/31/18 at 09:00; Stop 03/31/18 at 09:01 ; Status DC Metoclopramide HCl (Reglan Vial) 10 mg QIDACHS IV Last administered on at 12:12; Start 04/01/18 at 12:30 Active Scripts Active Naproxen 500 Mg Tablet 1 Tab PO BID PRN Vitamin B-12 (Cyanocobalamin (Vitamin B-12)) 1,000 Mcg Tablet 1,000 Mcg PO DAILY 30 Days Levemir Flextouch (Insulin Detemir) 100 Unit/1 Ml Insuln.pen 6 Units SQ QHS 30 Days Novolog Flexpen (Insulin Aspart) 100 Unit/1 Ml Insuln.pen 6 Units SQ TIDWMEALS 30 Days Metoclopramide Hcl 10 Mg/10 Ml Solution 10 Mg PO TIDACHC 30 Days Aspirin 325 Mg Tablet 81 Mg PO DAILYWBKFT 30 Days Cozaar (Losartan Potassium) 50 Mg Tablet 100 Mg PO DAILY 30 Days Amlodipine Besylate 5 Mg Tablet 5 Mg PO DAILY 30 Days Metoprolol Tartrate 50 Mg Tablet 100 Mg PO BID 30 Days Nitrostat (Nitroglycerin) 0.4 Mg Tab.subl 0.4 Mg SL PRN Q5MIN PRN 30 Days Isosorbide Mononitrate Er (Isosorbide Mononitrate) 30 Mg Tab.er.24h 60 Mg PO DAILY 30 Days Atorvastatin Calcium 40 Mg Tablet 40 Mg PO QHS 30 Days Ranexa (Ranolazine) 500 Mg Tab.er.12h 1,000 Mg PO BID 30 Days Keppra (Levetiracetam) 500 Mg Tablet 1,000 Mg PO BID 30 Days [Pioglitazone Hcl] 15 MG Tablet 45 Mg PO DAILY Lorazepam 1 Mg Tablet 1 Mg PO PRN TID PRN Pantoprazole Sodium 40 Mg Tablet.dr 40 Mg PO BIDAC Ondansetron Odt (Ondansetron) 4 Mg Tab.rapdis 4 Mg PO TIDAC FENTANYL 25mcg/hr (Fentanyl) 1 Each Patch.td72 1 Patch TD Q3DAYS Reported Ambien (Zolpidem Tartrate) 5 Mg Tablet 5 Mg PO HS Clopidogrel (Clopidogrel Bisulfate) 75 Mg Tablet 75 Mg PO DAILY Vitals/I & O Vital Sign - Last 24 Hours 03/31/18 03/31/18 03/31/18 03/31/18 18:00 18:00 18:01 18:01 Pulse 81 81 81 Resp 17 B/P (MAP) 158/78 158/78 158/78 Pulse Ox 96 O2 Delivery Room Air 03/31/18 03/31/18 03/31/18 04/01/18 19:00 20:00 22:45 03:00 Temp 98.4 98.9 98.8 98.4 98.9 98.8 Pulse 72 70 64 Resp 18 18 18 B/P (MAP) 117/63 (81) 146/69 (94) 124/54 (77) Pulse Ox 92 91 94 O2 Delivery Room Air Room Air Room Air Room Air 04/01/18 04/01/18 04/01/18 04/01/18 04:08 07:00 07:50 08:21 Temp 98.5 98.5 Pulse 73 Resp 18 B/P (MAP) 142/64 (90) Pulse Ox 93 O2 Delivery Room Air Room Air Room Air Room Air 04/01/18 04/01/18 04/01/18 04/01/18 08:23 08:24 08:25 08:26 Pulse 73 73 73 73 B/P (MAP) 142/64 142/64 142/64 142/64 04/01/18 04/01/18 04/01/18 04/01/18 08:27 08:30 09:30 11:00 Temp 98.4 98.4 Pulse 73 72 Resp 18 B/P (MAP) 142/64 122/63 (82) Pulse Ox 95 O2 Delivery Room Air Room Air Room Air 04/01/18 04/01/18 12:42 16:43 O2 Delivery Room Air Room Air DENICE IZAGUIRRE MD Apr 01, 2018 17:09
--- NOTE | 2018-04-01 17:52 | PN ---
DATE: 04/01/2018 LOCATION: She is in room 422. TIME: 10:21 a.m. SUBJECTIVE: Overall, she does feel better. She had a little bit of nausea, but no vomiting and she is tolerating her solid food. Her diarrhea has resolved and she is feeling better. It should be noted that the computers are not functioning now, so I do not have any access to information including labs. OBJECTIVE: VITAL SIGNS: Stable. HEART: Reveals an S1, S2. There is no S3 or murmur. LUNGS: Clear. ABDOMEN: Soft. EXTREMITIES: Lower extremities without edema. SKIN: No rashes. ASSESSMENT: 1. Severe diabetic gastroparesis. 2. Intractable nausea and vomiting, which is improved. 3. Diabetes mellitus type 2. 4. Hypertension. 5. Hyperlipidemia. 6. Coronary artery disease. PLAN: At this time is to continue with IV Reglan and IV Zofran. We will continue with her solid food diet. If she is doing well tomorrow, we will anticipate that she will be dismissed at that time. DENICE IZAGUIRRE MD DR: MIKAL/mandy JOB#: [id number] / [id number]
[2018-04-01 19:00] VITALS: BP 112/46
[2018-04-01] MEDS: ATORVASTATIN CALCIUM 40 MG TABLET. PO SCH (20:40)
[2018-04-01] MEDS: ZOLPIDEM 5 MG TABLET. PO PRN (20:40)
[2018-04-01] MEDS: INSULIN GLARGINE 300 UNITS/3 ML INSULN.PEN. SQ SCH (20:45)
[2018-04-02] MEDS: ONDANSETRON PF 4 MG/2 ML VIAL. IV SCH ×2 (00:30→05:56)
[2018-04-02] MEDS: oxyCODONE IR 5 MG TABLET PO PRN ×3 (00:30→11:18)
[2018-04-02] MEDS: ACETAMINOPHEN 325 MG TABLET. PO PRN ×2 (00:31→08:27)
[2018-04-02 03:00] VITALS: BP 121/64
[2018-04-02] MEDS: LEVOTHYROXINE 75 MCG TABLET PO SCH (05:56)
[2018-04-02] MEDS: METOCLOPRAMIDE HCL 10 MG/2 ML VIAL. IV SCH ×2 (05:57→11:18)
[2018-04-02] MEDS: PANTOPRAZOLE 40 MG TABLET.DR. PO SCH (06:00)
[2018-04-02 07:00] VITALS: BP 119/72
[2018-04-02] MEDS: CYANOCOBALAMIN (VITAMIN B-12) 1,000 MCG TABLET. PO SCH (08:28)
[2018-04-02] MEDS: levETIRAcetam 500 MG TABLET PO SCH (08:28)
[2018-04-02] MEDS: PIOGLITAZONE 15 MG TABLET. PO SCH (08:28)
[2018-04-02] MEDS: DICYCLOMINE HCL 10 MG CAPSULE PO PRN (08:29)
[2018-04-02] MEDS: LORazepam 1 MG TABLET PO PRN (08:29)
[2018-04-02] MEDS: METOPROLOL SUCC 24HR ER 50 MG TAB.ER.24H. PO SCH (08:29)
[2018-04-02] MEDS: SODIUM BICARBONATE 650 MG TABLET. PO SCH (08:29)
[2018-04-02] MEDS: MULTIVITAMIN with MINERAL TABLET. PO SCH (08:30)
[2018-04-02] MEDS: ASPIRIN CHEWABLE 81 MG TABLET. PO SCH (08:30)
[2018-04-02] MEDS: RANOLAZINE 500 MG TAB.ER.12H PO SCH (08:30)
[2018-04-02] MEDS: ISOSORBIDE MONONITRATE ER 30 MG TAB.ER.24H PO SCH (08:31)
[2018-04-02] MEDS: CLOPIDOGREL BISULFATE 75 MG TABLET PO SCH (08:31)
[2018-04-02] MEDS: amLODIPine BESYLATE 10 MG TABLET PO SCH (08:31)
[2018-04-02] MEDS: LOSARTAN POTASSIUM 50 MG TABLET. PO SCH (08:32)
[2018-04-02] MEDS: hydroCHLOROthiazide 25 MG TABLET PO SCH (08:32)
[2018-04-02] MEDS: INSULIN LISPRO 300 UNITS/3 ML INSULN.PEN. SQ SCH (08:39)
--- NOTE | 2018-04-02 10:30 | PDOC ---
PROGRESS NOTES Subjective Subjective feels better. eating well. Objective Objective Vital Signs Date Time Temp Pulse Resp B/P (MAP) Pulse Ox O2 Delivery O2 Flow Rate FiO2 04/02/18 08:32 74 119/72 04/02/18 08:00 Room Air 04/02/18 07:00 98.3 18 95 98.3 Intake and Output 04/02/18 07:00 Output Total 0 ml Balance 0 ml Output Urine Total 0 ml # Voids 5 Physical Exam Abdomen: Soft, No tenderness Heart: Regular rate, Normal S1, Normal S2 Extremities: No edema General: Alert HEENT: Atraumatic Lungs: Clear to auscultation Neuro: Normal speech Psych/Mental Status: Mental status NL Skin: No rashes Assessment Assessment Problems1. diabetic gastroparesis with intractable nausea and vomiting. improved 2. Epigastric abdominal pain. improved 3. 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 4. Hypertension. 5. Hyperlipidemia. 6. Coronary artery disease. 7. Hypothyroidism. hypokalemia resolved Medical Problems: (1) Intractable vomiting Status: Acute Plan Plan of Care dismiss today Comment Review of Relevant I have reviewed the following items maldonado (where applicable) has been applied. Labs Laboratory Tests Test 03/31/18 11:02 03/31/18 16:11 03/31/18 20:37 04/01/18 07:32 Glucose (Fingerstick) 136 mg/dL (70-99) 140 mg/dL (70-99) 166 mg/dL (70-99) 166 mg/dL (70-99) Test 04/01/18 11:36 04/01/18 17:15 04/01/18 19:34 04/02/18 08:23 Glucose (Fingerstick) 233 mg/dL (70-99) 237 mg/dL (70-99) 257 mg/dL (70-99) 223 mg/dL (70-99) Laboratory Tests Test 04/01/18 11:36 04/01/18 17:15 04/01/18 19:34 04/02/18 08:23 Glucose (Fingerstick) 233 mg/dL (70-99) 237 mg/dL (70-99) 257 mg/dL (70-99) 223 mg/dL (70-99) Microbiology 03/29/18 Urine Culture - Final, Complete 03/29/18 Urine Culture Result 1 (JUDY) - Final, Complete Medications Current Medications Sodium Chloride 1,000 ml @ 1,000 mls/hr 1X ONCE IV Last administered on at 13:28; Start 03/29/18 at 13:00; Stop 03/29/18 at 13:59; Status DC Morphine Sulfate (Morphine Sulfate) 6 mg 1X ONCE IV Last administered on at 13:27; Start 03/29/18 at 13:00; Stop 03/29/18 at 13:01; Status DC Ondansetron HCl (Zofran) 6 mg Q6HRS IV ; Start 03/29/18 at 15:00; Stop 03/29/18 at 15:05; Status DC Morphine Sulfate (Morphine Sulfate) 4 mg PRN Q2HR PRN IV PAIN Last administered on 03/30/18at 06:01; Start 03/29/18 at 14:15; Stop 03/30/18 at 14:14 ; Status DC Sodium Chloride 1,000 ml @ 60 mls/hr [id number] IV Last administered on at 06:05; Start 03/29/18 at 15:00; Stop 03/30/18 at 12:17; Status DC Metoclopramide HCl (Reglan Vial) 10 mg Q6HRS IV Last administered on 04/01/18at 04:08; Start 03/29/18 at 14:30; Stop 04/01/18 at 12:02; Status DC Pioglitazone HCl (Actos) 45 mg DAILY PO Last administered on 04/02/18at 08:28; Start 03/29/18 at 14:30 Zolpidem Tartrate (Ambien) 5 mg PRN QHS PRN PO INSOMNIA Last administered on at 20:40; Start 03/29/18 at 14:15 Pantoprazole Sodium (Protonix) 40 mg BIDAC PO ; Start 03/29/18 at 16:30; Stop at 16:30; Status DC Metoprolol Tartrate (Lopressor) 100 mg BID PO ; Start 03/29/18 at 14:30; Stop at 15:05; Status DC Losartan Potassium (Cozaar) 100 mg DAILY PO Last administered on 04/02/18at 08: 32; Start 03/29/18 at 15:00 Lorazepam (Ativan) 1 mg TID PO ; Start 03/29/18 at 15:00; Stop 03/29/18 at 15:05 ; Status DC Levetiracetam (Keppra) 1,000 mg BID PO Last administered on 04/02/18 08:28; Start 03/29/18 at 21:00 Clopidogrel Bisulfate (Plavix) 75 mg DAILY PO Last administered on 04/02/18 08 :31; Start 03/29/18 at 15:00 Amlodipine Besylate (Norvasc) 10 mg DAILY PO Last administered on 04/02/18 08: 31; Start 03/29/18 at 15:00 Insulin Human Lispro (HumaLOG) 8 units TIDWMEALS SQ Last administered on 17:18; Start 03/29/18 at 17:00; Stop 03/31/18 at 08:46; Status DC Insulin Glargine (Lantus) 8 units QHS SQ Last administered on 03/30/18at 23:43; Start 03/29/18 at 21:00; Stop 03/31/18 at 08:46; Status DC Atorvastatin Calcium (Lipitor) 80 mg QHS PO ; Start 03/29/18 at 21:00; Stop at 21:00; Status DC Levetiracetam (Keppra) 1,000 mg 1X ONCE PO Last administered on 03/29/18 16: 29; Start 03/29/18 at 15:00; Stop 03/29/18 at 15:01; Status DC Atorvastatin Calcium (Lipitor) 40 mg QHS PO Last administered on 04/01/18at 20: 40; Start 03/29/18 at 21:00 Lorazepam (Ativan) 1 mg PRN TID PRN PO ANXIETY / AGITATION Last administered on 04/02/18 08:29; Start 03/29/18 at 15:00 Ondansetron HCl (Zofran) 4 mg Q6HRS IV Last administered on 04/02/18 05:56; Start 03/29/18 at 18:00 Metoprolol Succinate (Toprol Xl) 50 mg DAILY PO Last administered on 04/02/18 08:29; Start 03/29/18 at 16:00 Multivitamins (Thera M Plus) 1 tab DAILY PO Last administered on 04/02/18 08: 30; Start 03/29/18 at 16:00 Nitroglycerin (Nitrostat) 0.4 mg PRN Q5MIN PRN SL CHEST PAIN; Start 03/29/18 at 15:00 Levothyroxine Sodium (Synthroid) 75 mcg DAILY07 PO Last administered on 05:56; Start 03/29/18 at 16:00 Isosorbide Mononitrate (Imdur) 60 mg DAILY PO ; Start 03/29/18 at 16:00 Fentanyl (Duragesic 25mcg/ Hr Patch) 1 patch Q3DAYS TD Last administered on 08:30; Start 03/29/18 at 17:00 Amlodipine Besylate (Norvasc) 10 mg DAILY PO ; Start 03/30/18 at 09:00; Status UNV Aspirin (Children'S Aspirin) 81 mg DAILYWBKFT PO Last administered on 08:30; Start 03/29/18 at 16:00 Hydrochlorothiazide (Hydrodiuril) 25 mg DAILY PO Last administered on 08:32; Start 03/29/18 at 16:00 Acetaminophen (Tylenol) 650 mg PRN Q6HRS PRN PO MILD PAIN / TEMP Last administered on 04/02/18 08:27; Start 03/29/18 at 15:00 Oxycodone HCl (Roxicodone) 10 mg PRN TID PRN PO MODERATE-SEVERE PAIN Last administered on 04/02/18at 05:57; Start 03/29/18 at 15:00 Pantoprazole Sodium (Protonix) 40 mg DAILYAC PO Last administered on 04/02/18 06:00; Start 03/29/18 at 16:00 Ranolazine (Ranexa) 1,000 mg BID PO Last administered on 04/01/18 08:26; Start 03/29/18 at 21:00 Sodium Bicarbonate (Sodium Bicarbonate) 650 mg BID PO Last administered on 04/02 08:29; Start 03/29/18 at 21:00 Sucralfate (Carafate) 1 gm QIDACHS PEG ; Start 03/29/18 at 16:30 Cyanocobalamin (Vitamin B-12) 1,000 mcg DAILY PO Last administered on at 08:28; Start 03/29/18 at 16:00 Al Hydroxide/Mg Hydroxide (Mylanta Plus Xs) 30 ml PRN Q2HR PRN PO HEARTBURN / GAS; Start 03/29/18 at 15:00 Dicyclomine HCl (Bentyl) 10 mg PRN Q6HRS PRN PO abdominal cramps Last administered on 04/02/18at 08:29; Start 03/30/18 at 12:15 Potassium Chloride (Klor-Con) 20 meq 1X ONCE PO Last administered on at 13:57; Start 03/30/18 at 13:00; Stop 03/30/18 at 13:01; Status DC Insulin Glargine (Lantus) 12 units QHS SQ Last administered on 04/01/18at 20:45 ; Start 03/31/18 at 21:00 Insulin Human Lispro (HumaLOG) 12 units TIDWMEALS SQ Last administered on at 08:39; Start 03/31/18 at 12:00 Barium Sulfate (Liquid E-Z Paque) 710 ml 1X ONCE PO Last administered on at 11:30; Start 03/31/18 at 09:00; Stop 03/31/18 at 09:01; Status DC Barium Sulfate (E-Z-Hd) 340 gm 1X ONCE PO Last administered on 03/31/18at 09:00 ; Start 03/31/18 at 09:00; Stop 03/31/18 at 09:01; Status DC Simethicone/ Sodium Bicarb/ Citric Ac (E-Z-Gas) 1 packet 1X ONCE PO Last administered on 03/31/18at 11:30; Start 03/31/18 at 09:00; Stop 03/31/18 at 09:01 ; Status DC Metoclopramide HCl (Reglan Vial) 10 mg QIDACHS IV Last administered on at 05:57; Start 04/01/18 at 12:30 Active Scripts Active Naproxen 500 Mg Tablet 1 Tab PO BID PRN Vitamin B-12 (Cyanocobalamin (Vitamin B-12)) 1,000 Mcg Tablet 1,000 Mcg PO DAILY 30 Days Levemir Flextouch (Insulin Detemir) 100 Unit/1 Ml Insuln.pen 6 Units SQ QHS 30 Days Novolog Flexpen (Insulin Aspart) 100 Unit/1 Ml Insuln.pen 6 Units SQ TIDWMEALS 30 Days Metoclopramide Hcl 10 Mg/10 Ml Solution 10 Mg PO TIDACHC 30 Days Aspirin 325 Mg Tablet 81 Mg PO DAILYWBKFT 30 Days Cozaar (Losartan Potassium) 50 Mg Tablet 100 Mg PO DAILY 30 Days Amlodipine Besylate 5 Mg Tablet 5 Mg PO DAILY 30 Days Metoprolol Tartrate 50 Mg Tablet 100 Mg PO BID 30 Days Nitrostat (Nitroglycerin) 0.4 Mg Tab.subl 0.4 Mg SL PRN Q5MIN PRN 30 Days Isosorbide Mononitrate Er (Isosorbide Mononitrate) 30 Mg Tab.er.24h 60 Mg PO DAILY 30 Days Atorvastatin Calcium 40 Mg Tablet 40 Mg PO QHS 30 Days Ranexa (Ranolazine) 500 Mg Tab.er.12h 1,000 Mg PO BID 30 Days Keppra (Levetiracetam) 500 Mg Tablet 1,000 Mg PO BID 30 Days [Pioglitazone Hcl] 15 MG Tablet 45 Mg PO DAILY Lorazepam 1 Mg Tablet 1 Mg PO PRN TID PRN Pantoprazole Sodium 40 Mg Tablet.dr 40 Mg PO BIDAC Ondansetron Odt (Ondansetron) 4 Mg Tab.rapdis 4 Mg PO TIDAC FENTANYL 25mcg/hr (Fentanyl) 1 Each Patch.td72 1 Patch TD Q3DAYS Reported Ambien (Zolpidem Tartrate) 5 Mg Tablet 5 Mg PO HS Clopidogrel (Clopidogrel Bisulfate) 75 Mg Tablet 75 Mg PO DAILY Vitals/I & O Vital Sign - Last 24 Hours 04/01/18 04/01/18 04/01/18 04/01/18 11:00 12:42 15:00 16:43 Temp 98.4 98.5 98.4 98.5 Pulse 72 70 Resp 18 18 B/P (MAP) 122/63 (82) 131/66 (87) Pulse Ox 95 95 O2 Delivery Room Air Room Air Room Air Room Air 04/01/18 04/01/18 04/02/18 04/02/18 19:00 20:00 00:30 03:00 Temp 98.2 98.1 98.2 98.1 Pulse 71 69 Resp 18 18 B/P (MAP) 112/46 (68) 121/64 (83) Pulse Ox 94 92 O2 Delivery Room Air Room Air Room Air Room Air 04/02/18 04/02/18 04/02/18 04/02/18 05:57 07:00 07:00 08:00 Temp 98.3 98.3 Pulse 74 Resp 18 B/P (MAP) 119/72 (88) Pulse Ox 95 O2 Delivery Room Air Room Air Room Air Room Air 04/02/18 04/02/18 04/02/18 08:29 08:31 08:32 Pulse 74 74 74 B/P (MAP) 119/72 119/72 119/72 Intake and Output 04/01/18 04/01/18 04/02/18 15:00 23:00 07:00 Output Total 0 ml Balance 0 ml DENICE IZAGUIRRE MD Apr 02, 2018 10:30
--- NOTE | 2018-04-02 10:34 | PDOC ---
Provider Note Provider Note discharge summary dictated # [id number] DENICE IZAGUIRRE MD Apr 02, 2018 10:34
[2018-04-02] MEDS ORDERED: SODI650T PO (10:42)
[2018-04-02] MEDS ORDERED: LEVO75TA PO (10:42)
[2018-04-02] MEDS ORDERED: METO50TA29 PO (10:42)
[2018-04-02] MEDS ORDERED: HYDR25TA9 PO (10:42)
[2018-04-02] MEDS ORDERED: DICY10CA3 PO (10:42)
[2018-04-02] MEDS ORDERED: CYAN10005 PO (10:42)
[2018-04-02] MEDS ORDERED: INSU100I11 SQ (10:42)
[2018-04-02] MEDS ORDERED: MULT1TAB90 PO (10:42)
[2018-04-02] MEDS ORDERED: INSU100I13 SQ (10:42)
[2018-04-02 11:00] VITALS: BP 143/78
--- NOTE | 2018-04-02 12:06 | DS ---
DATE OF DISCHARGE: 04/02/2018 CONSULTANTS: Dr. Edwards. FINAL DIAGNOSES: 1. Intractable nausea, vomiting and abdominal pain secondary to severe diabetic gastroparesis. 2. Diabetes mellitus type 2 with microalbuminuria and severe diabetic gastroparesis. 3. Hypertension. 4. Hyperlipidemia. 5. Coronary artery disease. 6. Hypothyroidism. HOSPITAL COURSE: The patient is a 72-year-old white female with a history of diabetes mellitus type 2 and diabetic gastroparesis with hypertension, hyperlipidemia, coronary artery disease, admitted to [facility] through the Emergency Room with a 2-day history of epigastric pain and intractable nausea and vomiting. She normally takes Zofran mg before meals t.i.d. and metoclopramide 10 mg before meals t.i.d. and bedtime. She has been unable to hold down much food or liquid, went to the Emergency Room where she denied any fever, hematemesis, melena or hematochezia. She had some loose stools. She had a CAT scan of the abdomen and pelvis, which did not show any acute abnormality except for hiatal hernia. She had an upper GI, which showed no obstruction. She was admitted to the hospital, treated with IV fluids and her diet was slowly advanced from liquids to a diabetic diet. She received IV Zofran and IV Reglan and nausea and vomiting improved. It is anticipated that she will be dismissed to home today on Actos 45 mg every day, amlodipine 10 mg every day, aspirin 81 mg every day, atorvastatin 40 mg every day, Plavix 75 mg every day, fentanyl 25 mcg patch every 72 hours, hydrochlorothiazide 25 mg every day, Imdur 60 mg every day, Keppra 1000 mg b.i.d., Lantus was increased to 12 units at bedtime, NovoLog insulin increased to 12 units before meals t.i.d., levothyroxine 75 mcg every day, lorazepam 1 mg t.i.d. p.r.n. for anxiety, losartan 100 mg every day, metoclopramide 10 mg before meals t.i.d. and bedtime, metoprolol succinate 50 mg every day, multiple vitamin once a day, nitroglycerin 0.4 mg sublingual p.r.n., NovoLog as mentioned is 12 units before meals t.i.d., oxycodone 10 mg t.i.d. p.r.n., Protonix 40 mg every day, Ranexa 1000 mg b.i.d., sodium bicarbonate 650 mg b.i.d., liquid Carafate 1 gram before meals t.i.d. and at bedtime, vitamin B12 1000 mcg every day, Zofran 8 mg before meals t.i.d. and Ambien 5 mg at bedtime as needed. She has an appointment this Saturday to see Dr. Masters. DENICE MASTERS MD DR: [email or web address]/[email or web address] JOB#: [id number] / [id number]
== END 2018-04-02 11:40 | disposition home or self-care (01) | DRG 74 ==
LOC: ER 12:10 → 4 NORTH 13:55
PROVIDERS: ADMIT Internal Medicine; ATTEND Internal Medicine
DX: E11.43 Type 2 diabetes mellitus with diabetic autonomic (poly)neuropathy (principal); N39.0 Urinary tract infection, site not specified; K31.84 Gastroparesis; K21.9 Gastro-esophageal reflux disease without esophagitis; E11.22 Type 2 diabetes mellitus with diabetic chronic kidney disease; E78.5 Hyperlipidemia, unspecified; E87.6 Hypokalemia; E89.0 Postprocedural hypothyroidism; F31.9 Bipolar disorder, unspecified; F41.9 Anxiety disorder, unspecified; G40.909 Epilepsy, unspecified, not intractable, without status epilepticus; G89.29 Other chronic pain; I12.9 Hypertensive chronic kidney disease with stage 1 through stage 4 chronic kidney disease, or unspecified chronic kidney disease; I25.10 Atherosclerotic heart disease of native coronary artery without angina pectoris; K44.9 Diaphragmatic hernia without obstruction or gangrene; K58.0 Irritable bowel syndrome with diarrhea; M54.5 Low back pain; F11.21 Opioid dependence, in remission; Z96.652 Presence of left artificial knee joint; K57.90 Diverticulosis of intestine, part unspecified, without perforation or abscess without bleeding; N18.9 Chronic kidney disease, unspecified; R80.9 Proteinuria, unspecified; M19.90 Unspecified osteoarthritis, unspecified site; Z79.4 Long term (current) use of insulin; Z79.82 Long term (current) use of aspirin; Z79.899 Other long term (current) drug therapy; Z82.49 Family history of ischemic heart disease and other diseases of the circulatory system; Z87.442 Personal history of urinary calculi; Z88.0 Allergy status to penicillin; Z90.49 Acquired absence of other specified parts of digestive tract; Z90.710 Acquired absence of both cervix and uterus; Z95.1 Presence of aortocoronary bypass graft; Z95.5 Presence of coronary angioplasty implant and graft; Z87.81 Personal history of (healed) traumatic fracture; Z88.8 Allergy status to other drugs, medicaments and biological substances
CPT/HCPCS: 36415; 71045; 74176; 74249; 80048; 80053; 80076; 81001; 82962; 83605; 83690; 83735; 85025; 87086; 93005; 96361; 96374; J1815; J2270; J2405; J2765; J7030; 99285-25

== ENCOUNTER 2018-04-26 10:34 | Emergency (ER) | payer MEDICARE, OTHER ==
[2018-04-18 09:03] VITALS: BP 138/66
[~2018-04-26] VITALS: Ht 149.9 cm; Wt 74.8 kg
[~2018-04-26 10:34] MED LIST changes: -AMLO10TA2 PO; +AMLO10TA6 PO; -AMLO5TAB2 PO; +AMLO5TAB7 PO; +DICY10CA3 PO; +HYDR25TA9 PO; +INSU100I11 SQ; +LEVO75TA PO; -METF10003 PO; +METF10007 PO; +METF500T16 PO; -METF500T5 PO; +METO50TA29 PO; +MULT1TAB90 PO; +SODI650T PO
[2018-04-26 11:21] LABS: BILIRUBIN,URINE NEGATIVE (NEG); CLARITY,URINE CLEAR; COLOR,URINE YELLOW; NITRITE,URINE NEGATIVE (NEG); PH,URINE 5.5; PROTEIN,URINE NEGATIVE (NEG-TRACE); UROBILINOGEN,URINE 0.2 mg/dL (0.2 mg/dL)
--- NOTE | 2018-04-26 11:31 | PHYS DOC ---
Past Medical History Past Medical History: Bipolar, CAD, Diabetes-Type II, Heart Disease, Hypertension, IBS, Seizure, Other Additional Past Medical Histor: Gastroparesis Past Surgical History: Appendectomy, Cholecystectomy, Coronary Bypass Surgery, Hysterectomy, Other Additional Past Surgical Histo: Cardiac stents x 5, CABG, Fused R)ankle surgery Alcohol Use: None Drug Use: None Adult General Chief Complaint Chief Complaint: NAUSEA/VOMITING/[facility] HPI Patient is a 72 year old female who brought in by EMS with complaining of abdominal pain and nausea and vomiting. Patient has history of bipolar disorder and chronic diabetic gastroparesis for more than 5 years and frequent emergency room visits and hospitalization related to her pain. Patient complaining of upper abdominal pain for the last 3 weeks as a constant and sharp pain with radiation to the substernal area associated with nausea and several episodes of nonbloody vomiting today. Patient denies fever and chills, shortness of breath, diarrhea and constipation, urinary symptom. Patient states she did not take any pain medication except for GI medicine without improvement of her pain under her pain 10 over 10. Review of Systems Review of Systems Constitutional: Denies fever or chills [] Eyes: Denies change in visual acuity, redness, or eye pain [] HENT: Denies nasal congestion or sore throat [] Respiratory: Denies cough or shortness of breath [] Cardiovascular: No additional information not addressed in HPI [] GI: Reports abdominal pain, nausea, vomiting, denies bloody stools or diarrhea [ ] : Denies dysuria or hematuria [] Musculoskeletal: Denies back pain or joint pain [] Integument: Denies rash or skin lesions [] Neurologic: Denies headache, focal weakness or sensory changes [] Endocrine: Denies polyuria or polydipsia [] All other systems were reviewed and found to be within normal limits, except as documented in this note. Allergies Allergies Allergies Coded Allergies Type Severity Reaction Last Updated Verified Iodinated Contrast- Oral and IV Dye Allergy Severe Anaphylaxis 05/27/16 Yes Penicillins Allergy Intermediate 05/27/16 Yes atenolol Allergy Intermediate TAKES METOPROLOL AT HOME 06/23/17 Yes erythromycin base Allergy Intermediate 05/27/16 Yes iodine Allergy Intermediate 05/27/16 Yes levofloxacin Allergy Intermediate 05/27/16 Yes pregabalin Allergy Intermediate 05/27/16 Yes Physical Exam Physical Exam Constitutional: Well nourished, no acute distress, non-toxic appearance, anxious. [] HENT: Normocephalic, atraumatic, oropharynx moist. [] Eyes: PERRLA, EOMI, conjunctiva normal, no discharge. [] Neck: Normal range of motion, no tenderness, supple, no stridor. [] Cardiovascular:Heart rate regular rhythm, no murmur [] Lungs & Thorax: Bilateral breath sounds clear to auscultation [] Abdomen: Bowel sounds normal, soft, upper abdominal voluntary guarding, no tenderness, no masses, no pulsatile masses. [] Skin: Warm, dry, no erythema, no rash. [] Back: No tenderness, no CVA tenderness. [] Extremities: No tenderness, no cyanosis, no clubbing, ROM intact, no edema. [] Neurologic: Alert and oriented X 3, normal motor function, normal sensory function, no focal deficits noted. [] Psychologic: Affect anxious, judgement normal, mood normal. [] Current Patient Data Vital Signs Vital Signs Date Time Temp Pulse Resp B/P (MAP) Pulse Ox O2 Delivery O2 Flow Rate FiO2 04/26/18 10:34 98.9 88 24 166/114 (131) 97 Room Air 98.9 Lab Values Laboratory Tests Test 04/26/18 10:51 Urine Collection Type Unknown Urine Color Yellow Urine Clarity Clear Urine pH 5.5 Urine Specific [place] >=1.030 Urine Protein Negative mg/dL (NEG-TRACE) Urine Glucose (UA) >=1000 mg/dL (NEG) Urine Ketones (Stick) Negative mg/dL (NEG) Urine Blood Negative (NEG) Urine Nitrite Negative (NEG) Urine Bilirubin Negative (NEG) Urine Urobilinogen Dipstick 0.2 mg/dL (0.2 mg/dL) Urine Leukocyte Esterase Negative (NEG) Urine RBC 1-2 /HPF (0-2) Urine WBC 1-4 /HPF (0-4) Urine Squamous Epithelial Cells Few /LPF Urine Bacteria Few /HPF (0-FEW) Urine Opiates Screen Neg (NEG) Urine Methadone Screen Neg (NEG) Urine Barbiturates Neg (NEG) Urine Phencyclidine Screen Neg (NEG) Urine Amphetamine/Methamphetamine Neg (NEG) Urine Benzodiazepines Screen Neg (NEG) Urine Cocaine Screen Neg (NEG) Urine Cannabinoids Screen Neg (NEG) Urine Ethyl Alcohol Neg (NEG) EKG EKG [] Radiology/Procedures Radiology/Procedures [] Course & Med Decision Making Course & Med Decision Making Evaluation of patient in ER showed 72-year-old female patient brought in by EMS because of chronic abdominal pain and frequent emergency room visits. Patient demanding medication without starting IV line and obtaining blood test at arrival to ER. Patient informed that she needs to have IV line and having test and after few minutes she decided to leave AMA. She walked from emergency room without any problem. Dragon Disclaimer Dragon Disclaimer This electronic medical record was generated, in whole or in part, using a voice recognition dictation system. Departure Departure Impression: Primary Impression: Left against medical advice Additional Impressions: Chronic abdominal pain Diabetic gastroparesis Anxiety Disposition: 07 AGAINST MEDICAL ADVICE (@10:30) Referrals: DENICE IZAGUIRRE MD (PCP) Problem Qualifiers MARIAN BURNS MD Apr 26, 2018 11:31
[2018-04-26 11:32] LABS: BARBITURATES NEG (NEG); BENZODIAZEPINES NEG (NEG); CANNABINOIDS NEG (NEG); COCAINE NEG (NEG); METHADONE NEG (NEG); OPIATES NEG (NEG); PHENCYCLIDINE NEG (NEG)
[2018-04-26 11:33] LABS: AMPHETAMINE/METHAMPHETAMINE NEG (NEG)
[2018-04-26 11:35] LABS: SQUAMOUS EPITHELIAL CELL,UR FEW /LPF
[2018-04-26 11:36] LABS: BACTERIA,URINE FEW /HPF (0-FEW)
== END 2018-04-26 11:35 | disposition left against medical advice (07) ==
LOC: ER 10:34
DX: E11.43 Type 2 diabetes mellitus with diabetic autonomic (poly)neuropathy (principal); K31.84 Gastroparesis; G89.29 Other chronic pain; F41.9 Anxiety disorder, unspecified; F31.9 Bipolar disorder, unspecified; I11.9 Hypertensive heart disease without heart failure; I25.10 Atherosclerotic heart disease of native coronary artery without angina pectoris; Z95.5 Presence of coronary angioplasty implant and graft; K58.9 Irritable bowel syndrome, unspecified; Z90.89 Acquired absence of other organs; Z90.49 Acquired absence of other specified parts of digestive tract; Z95.1 Presence of aortocoronary bypass graft; Z88.0 Allergy status to penicillin; Z88.1 Allergy status to other antibiotic agents; Z88.8 Allergy status to other drugs, medicaments and biological substances; Z91.041 Radiographic dye allergy status
CPT/HCPCS: 80307; 81001; 99284; G0479

== ENCOUNTER 2018-08-23 09:48 | Emergency (ER) | payer MEDICARE, OTHER ==
[~2018-08-23] VITALS: Ht 149.9 cm; Wt 72.6 kg
[~2018-08-23 09:48] MED LIST changes: +CLON1TAB11 PO; -CLON1TAB4 PO; +HYDR-2145 PO; -HYDR-2766 PO; +HYDR-2769 PO; +HYDR-3164 PO; -HYDR-971 PO; -HYDR25TA9 PO; +LOSA-73 PO; -LOSA50TA2 PO; -OXYC-323 PO; +OXYC1TAB15 PO; +OXYC5TAB4 PO; -OXYC5TAB95 PO
--- NOTE | 2018-08-23 10:13 | PHYS DOC ---
Past Medical History Past Medical History: Bipolar, CAD, Diabetes-Type II, Heart Disease, Hypertension, IBS, Seizure, Other Additional Past Medical Histor: Gastroparesis Past Surgical History: Appendectomy, Cholecystectomy, Coronary Bypass Surgery, Hysterectomy, Other Additional Past Surgical Histo: Cardiac stents x 5, CABG, Fused R)ankle surgery , thyroidectomy Alcohol Use: None Drug Use: None Adult General Chief Complaint Chief Complaint: BACK PAIN - NO INJURY HPI HPI Patient is a 72 year old female with history of bipolar, hypertension, diabetes type 2, CAD, who presents today complaining of a throbbing 8 out of 10 mid low back pain that began at 3 AM this morning. Patient denies any known injury. She states the pain radiates to bilateral lower extremities. Denies any loss of bowel bladder function. Denies any numbness or tingling to bilateral lower extremities. She currently has a fentanyl patch on, she states is for her chronic lower extremity pain. She states she does not have history of back pain. Patient denies any urgency frequency or dysuria. She is writhing in pain but stops to talk to people if asked questions. PCP Dr. Masters Review of Systems Review of Systems Constitutional: Denies fever or chills [] Eyes: Denies change in visual acuity, redness, or eye pain [] HENT: Denies nasal congestion or sore throat [] Respiratory: Denies cough or shortness of breath [] Cardiovascular: No additional information not addressed in HPI [] GI: Denies abdominal pain, nausea, vomiting, bloody stools or diarrhea [] : Denies dysuria or hematuria [] Musculoskeletal: Reports bilateral low back pain radiating to bilateral lower extremities Integument: Denies rash or skin lesions [] Neurologic: Denies headache, focal weakness or sensory changes [] All other systems were reviewed and found to be within normal limits, except as documented in this note. Current Medications Current Medications Current Medications Medications (Trade) Dose Ordered Sig/Melanie Start Time Stop Time Status Last Admin Dose Admin Acetaminophen (Tylenol) 1,000 mg 1X ONCE 08/23/18 11:00 08/23/18 11:01 DC 08/23/18 11:04 1,000 MG Amlodipine Besylate (Norvasc) 5 mg 1X ONCE 08/23/18 10:15 08/23/18 10:16 DC 08/23/18 10:21 5 MG Cyclobenzaprine HCl (Flexeril) 10 mg 1X ONCE 08/23/18 10:15 08/23/18 10:16 DC 08/23/18 10:21 10 MG Ketorolac Tromethamine (Toradol Im) 60 mg 1X ONCE 08/23/18 13:00 08/23/18 13:01 DC 08/23/18 13:17 60 MG Methylprednisolone Sodium Succinate (SOLU-Medrol 125MG VIAL) 125 mg 1X ONCE 08/23/18 13:00 08/23/18 13:01 DC 08/23/18 13:17 125 MG Oxycodone HCl (OxyCONTIN) 10 mg STAT STAT 08/23/18 13:08 08/23/18 13:12 DC 08/23/18 13:18 10 MG Allergies Allergies Allergies Coded Allergies Type Severity Reaction Last Updated Verified Iodinated Contrast- Oral and IV Dye Allergy Severe Anaphylaxis 05/27/18 Yes Penicillins Allergy Intermediate 05/27/18 Yes atenolol Allergy Intermediate TAKES METOPROLOL AT HOME 05/27/18 Yes erythromycin base Allergy Intermediate 05/27/18 Yes iodine Allergy Intermediate 05/27/18 Yes levofloxacin Allergy Intermediate 05/27/18 Yes pregabalin Allergy Intermediate 05/27/16 Yes Physical Exam Physical Exam Constitutional: Well developed, well nourished, no acute distress, non-toxic appearance. [] HENT: Normocephalic, atraumatic, bilateral external ears normal, oropharynx moist, no oral exudates, nose normal. [] Eyes: PERRLA, EOMI, conjunctiva normal, no discharge. [] Neck: Normal range of motion, no tenderness, supple, no stridor. [] Cardiovascular:Heart rate regular rhythm, no murmur [] Lungs & Thorax: Bilateral breath sounds clear to auscultation [] Abdomen: Bowel sounds normal, soft, no tenderness, no masses, no pulsatile masses. [] Skin: Warm, dry, no erythema, no rash. [] Back: Diffuse paraspinal muscle tenderness bilateral lumbar spine, with midline lumbar spine tenderness from L1-L3 region, no CVA tenderness. Negative bilateral straight leg raises.[] Extremities: No tenderness, no cyanosis, no clubbing, ROM intact, no edema. [] Neurologic: Alert and oriented X 3, normal motor function, normal sensory function, no focal deficits noted. [] Psychologic: Patient is writhing in pain, flat affect. Current Patient Data Vital Signs Vital Signs Date Time Temp Pulse Resp B/P (MAP) Pulse Ox O2 Delivery O2 Flow Rate FiO2 08/23/18 14:00 85 20 159/80 (106) 97 Room Air 08/23/18 09:55 98.2 98.2 Lab Values Laboratory Tests Test 08/23/18 10:05 Urine Collection Type Unknown Urine Color Yellow Urine Clarity Clear Urine pH 5.5 Urine Specific [place] >=1.030 Urine Protein Negative mg/dL (NEG-TRACE) Urine Glucose (UA) >=1000 mg/dL (NEG) Urine Ketones (Stick) Trace mg/dL (NEG) Urine Blood Negative (NEG) Urine Nitrite Negative (NEG) Urine Bilirubin Negative (NEG) Urine Urobilinogen Dipstick 0.2 mg/dL (0.2 mg/dL) Urine Leukocyte Esterase Negative (NEG) Urine RBC Occ /HPF (0-2) Urine WBC 0 /HPF (0-4) Urine Squamous Epithelial Cells Occ /LPF Urine Transitional Epithelial Cells Occ /LPF Urine Bacteria 0 /HPF (0-FEW) Urine Hyaline Casts Occasional /HPF Urine Mucus Slight /LPF Urine Opiates Screen Neg (NEG) Urine Methadone Screen Neg (NEG) Urine Barbiturates Neg (NEG) Urine Phencyclidine Screen Neg (NEG) Urine Amphetamine/Methamphetamine Neg (NEG) Urine Benzodiazepines Screen Neg (NEG) Urine Cocaine Screen Neg (NEG) Urine Cannabinoids Screen Neg (NEG) Urine Ethyl Alcohol Neg (NEG) EKG EKG [] Radiology/Procedures Radiology/Procedures []PROCEDURE: LUMBAR SPINE 2-3V LUMBAR SPINE 2-3V Clinical Indication: LBP SINCE THIS MORNING. RADICULOPATHY DOWN BOTH LEGS Comparison: CT abdomen and pelvis without contrast April 15, 2018. Findings: There is right posterior battery pack and spinal stimulator leads, one courses cephalad, the other is at the level of L5-S1. There is old compression fracture treated with vertebroplasty of L2. Slight retropulsion of L2 is stable. Mild grade 1 anterolisthesis of L5 on S1. The alignment is otherwise maintained. There is mild loss of height centrally of the superior endplate of L1, new from prior study. Atherosclerotic abdominal aorta. Cholecystectomy. IMPRESSION: 1. Mild loss of height centrally superior endplate of L1. Finding is new from prior study. Correlate to any point tenderness. 2. Old compression fracture of L2 vertebra treated with vertebroplasty. Slight retropulsion of L2 is stable. Electronically signed by: Javier Costa MD (08/23/2018 12:01 PM) [facility] DICTATED and SIGNED BY: JAVIER COSTA MD DATE: 08/23/18 1145 Course & Med Decision Making Course & Med Decision Making Pertinent Labs and Imaging studies reviewed. (See chart for details) This is a 72-year-old female patient presenting to the ED today with complaints of low back pain that began at 3 AM. Patient has a fentanyl patch for her chronic lower extremity pain. No known injury. No cauda equina syndrome symptoms. Patient has been up and ambulating to the bathroom in no distress. She tends to start writhing in pain when you enter her room but stops writhing and carries on conversation. UA is negative Lumbar spine xrays results- Mild loss of height centrally superior endplate of L1. Finding is new from prior study. Correlate to any point tenderness.Old compression fracture of L2 vertebra treated with vertebroplasty. Slight retropulsion of L2 is stable. Results discussed with Consulted with Dr. Masters, he requested we discharge her to home and she can f/ u with her on Saturday. Staff Physician Addendum: I was working in the ER during the course of this patient's visit. I was available for consultation as needed, but I was not directly involved in the care of this patient. Dragon Disclaimer Dragon Disclaimer This electronic medical record was generated, in whole or in part, using a voice recognition dictation system. Departure Departure Impression: Primary Impression: Intractable low back pain Disposition: HOME, SELF-CARE Condition: STABLE Referrals: DENICE MASTERS MD (PCP) Follow-up next week Patient Instructions: Back Pain, Adult, [id number] Additional Instructions: You were evaluated in the emergency room for back pain. Dr. Masters requested you call his office on Saturday morning and follow-up. He also requested you take oxycodone as needed for pain. Scripts Oxycodone Hcl (OXYCODONE HCL IMMED.RELEASE) 10 Mg Tablet 10 MG PO PRN Q6HRS PRN for PAIN, #12 TAB 0 Refills Prov: LO VELA APRN 08/23/18 LO VELA APRN Aug 23, 2018 10:13 POLO ALEMAN MD Aug 24, 2018 07:42
[2018-08-23] MEDS ORDERED: CYCLOBENZAPRINE 10 MG TABLET. PO ONE (10:15)
[2018-08-23] MEDS ORDERED: amLODIPine BESYLATE 5 MG TABLET PO ONE (10:15)
[2018-08-23 10:25] LABS: BILIRUBIN,URINE NEGATIVE (NEG); CLARITY,URINE CLEAR; COLOR,URINE YELLOW; NITRITE,URINE NEGATIVE (NEG); PH,URINE 5.5; PROTEIN,URINE NEGATIVE (NEG-TRACE); UROBILINOGEN,URINE 0.2 mg/dL (0.2 mg/dL)
[2018-08-23 10:36] LABS: BARBITURATES NEG (NEG); BENZODIAZEPINES NEG (NEG); CANNABINOIDS NEG (NEG); COCAINE NEG (NEG); METHADONE NEG (NEG); OPIATES NEG (NEG); PHENCYCLIDINE NEG (NEG)
[2018-08-23 10:39] LABS: AMPHETAMINE/METHAMPHETAMINE NEG (NEG)
[2018-08-23 10:54] LABS: HYALINE CASTS, URINE OCCASIONAL /HPF; SQUAMOUS EPITHELIAL CELL,UR OCC /LPF
[2018-08-23 10:55] LABS: BACTERIA,URINE 0 /HPF (0-FEW); RBC,URINE OCC /HPF (0-2); WBC,URINE 0 /HPF (0-4)
[2018-08-23] MEDS ORDERED: ACETAMINOPHEN 500 MG TABLET PO ONE (11:00)
--- NOTE | 2018-08-23 12:05 | RAD ---
LUMBAR SPINE 2-3V Clinical Indication: LBP SINCE THIS MORNING. RADICULOPATHY DOWN BOTH LEGS Comparison: CT abdomen and pelvis without contrast April 15, 2018. Findings: There is right posterior battery pack and spinal stimulator leads, one courses cephalad, the other is at the level of L5-S1. There is old compression fracture treated with vertebroplasty of L2. Slight retropulsion of L2 is stable. Mild grade 1 anterolisthesis of L5 on S1. The alignment is otherwise maintained. There is mild loss of height centrally of the superior endplate of L1, new from prior study. Atherosclerotic abdominal aorta. Cholecystectomy. IMPRESSION: 1. Mild loss of height centrally superior endplate of L1. Finding is new from prior study. Correlate to any point tenderness. 2. Old compression fracture of L2 vertebra treated with vertebroplasty. Slight retropulsion of L2 is stable. Electronically signed by: Javier Costa MD (08/23/2018 12:01 PM) [facility]
[2018-08-23] MEDS ORDERED: OXYC10TA PO (12:52)
[2018-08-23] MEDS ORDERED: methylPREDNISolone SOD SUCC PF 125 MG/2 ML VIAL. IM ONE (13:00)
[2018-08-23] MEDS ORDERED: KETOROLAC 60 MG/2 ML VIAL. IM ONE (13:00)
[2018-08-23] MEDS ORDERED: oxyCODONE ER 10 MG TAB.ER.12H PO STA (13:08)
[2018-08-23 14:00] VITALS: BP 159/80
[2018-08-23] MEDS ORDERED: oxyCODONE ER 10 MG TAB.ER.12H PO SCH (21:00)
== END 2018-08-23 14:30 | disposition home or self-care (01) ==
LOC: ER 09:48
DX: M54.5 Low back pain (principal); G89.29 Other chronic pain; M79.604 Pain in right leg; M79.605 Pain in left leg; I11.9 Hypertensive heart disease without heart failure; E11.43 Type 2 diabetes mellitus with diabetic autonomic (poly)neuropathy; K31.84 Gastroparesis; I25.10 Atherosclerotic heart disease of native coronary artery without angina pectoris; F31.9 Bipolar disorder, unspecified; K58.9 Irritable bowel syndrome, unspecified; Z90.89 Acquired absence of other organs; Z90.49 Acquired absence of other specified parts of digestive tract; Z90.710 Acquired absence of both cervix and uterus; Z95.5 Presence of coronary angioplasty implant and graft; Z95.1 Presence of aortocoronary bypass graft; Z88.0 Allergy status to penicillin; Z88.1 Allergy status to other antibiotic agents; Z91.040 Latex allergy status; Z88.8 Allergy status to other drugs, medicaments and biological substances
CPT/HCPCS: 72100; 80307; 81001; 96372; 99284; J1885; J2930; P9612

== ENCOUNTER 2018-08-23 19:54 | Emergency (ER) | payer MEDICARE, OTHER ==
[~2018-08-23] VITALS: Ht 149.9 cm; Wt 73.5 kg
[2018-08-23 20:00] VITALS: BP 141/80
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
== END 2018-08-23 20:39 | disposition home or self-care (01) ==
LOC: ER 19:54
DX: M54.5 Low back pain (principal); M79.604 Pain in right leg; M79.605 Pain in left leg; I11.9 Hypertensive heart disease without heart failure; F31.9 Bipolar disorder, unspecified; I25.10 Atherosclerotic heart disease of native coronary artery without angina pectoris; K58.9 Irritable bowel syndrome, unspecified; G89.29 Other chronic pain; E11.43 Type 2 diabetes mellitus with diabetic autonomic (poly)neuropathy; K31.84 Gastroparesis; Z95.5 Presence of coronary angioplasty implant and graft; Z95.1 Presence of aortocoronary bypass graft; Z90.89 Acquired absence of other organs; Z90.710 Acquired absence of both cervix and uterus; Z90.49 Acquired absence of other specified parts of digestive tract; Z88.0 Allergy status to penicillin; Z88.1 Allergy status to other antibiotic agents; Z91.041 Radiographic dye allergy status; Z88.8 Allergy status to other drugs, medicaments and biological substances
CPT/HCPCS: 99283

== ENCOUNTER 2018-08-27 10:31 | Emergency (ER) | payer MEDICARE, OTHER ==
[~2018-08-27] VITALS: Ht 149.9 cm; Wt 72.6 kg
[~2018-08-27 10:31] MED LIST changes: -AMLO10TA6 PO; +AMLO10TA8 PO; +AMLO5TAB10 PO; -AMLO5TAB7 PO; +CYAN-25 PO; -CYAN10005 PO; -PANT40TA5 PO; +PANT40TA77 PO
[2018-08-27 10:50] VITALS: BP 173/84
--- NOTE | 2018-08-27 11:28 | PHYS DOC ---
Past Medical History Past Medical History: Bipolar, CAD, Diabetes-Type II, Heart Disease, Hypertension, IBS, Seizure, Other Additional Past Medical Histor: Gastroparesis, CHRONIC PAIN Past Surgical History: Appendectomy, Cholecystectomy, Coronary Bypass Surgery, Hysterectomy, Other Additional Past Surgical Histo: Cardiac stents x 5, CABG, Fused R)ankle surgery , thyroidectomy,pain stimul Alcohol Use: None Drug Use: None Adult General Chief Complaint Chief Complaint: BACK PAIN OR INJURY HPI HPI 72-year-old female presents to ER via POV with complaints of ongoing chronic right lower back pain which patient has been evaluated in the ER for multiple times. Patient is dramatic and anxious during her exam however when redirected patient is able to sit up in the bed and discuss her symptoms without any trauma or anxious talking. Patient has full range of motion of all extremities and is repositioning herself in the bed. Patient reports she did call Dr. Masters's office her primary care physician and has an appointment on Saturday but came to the ER for pain control. Patient denies any acute change in symptoms. She is denying any incontinence of bowel/bladder or saddle anesthesia. She denies any urinary sxs, fever, N/V/D, or bloody/dark tarry stools. She reports she took her Rx'd medications with no relief in sxs. She denies pain in extremities or swelling. She reports she has been able to walk but does have pain during walking. Review of Systems Review of Systems Constitutional: Denies fever or chills [] Eyes: Denies change in visual acuity, redness, or eye pain [] HENT: Denies nasal congestion or sore throat [] Respiratory: Denies cough or shortness of breath [] Cardiovascular: Denies CP GI: Denies abdominal pain, nausea, vomiting, bloody stools or diarrhea. Denies saddle anesth. : Denies urinary sxs or incontinence of bowel/bladder Musculoskeletal: Denies joint pain. Reports rt lower back pain- states she does have implanted stimulator denying pain around site Integument: Denies rash or skin lesions [] Neurologic: Denies headache, focal weakness or sensory changes [] Endocrine: Denies polyuria or polydipsia [] Psych: Reports anxiety denying any SI All other systems were reviewed and found to be within normal limits, except as documented in this note. Current Medications Current Medications Current Medications Medications (Trade) Dose Ordered Sig/Melanie Start Time Stop Time Status Last Admin Dose Admin Cyclobenzaprine HCl (Flexeril) 10 mg 1X ONCE 08/27/18 11:45 08/27/18 11:46 DC Ketorolac Tromethamine (Toradol 30mg Vial) 30 mg 1X ONCE 08/27/18 11:45 08/27/18 11:46 DC Lidocaine (Lidoderm) 1 patch 1X ONCE 08/27/18 12:00 08/27/18 12:00 DC Allergies Allergies Allergies Coded Allergies Type Severity Reaction Last Updated Verified Iodinated Contrast- Oral and IV Dye Allergy Severe Anaphylaxis 05/27/18 Yes Penicillins Allergy Intermediate 05/27/18 Yes atenolol Allergy Intermediate TAKES METOPROLOL AT HOME 05/27/18 Yes erythromycin base Allergy Intermediate 05/27/18 Yes iodine Allergy Intermediate 05/27/18 Yes levofloxacin Allergy Intermediate 05/27/18 Yes pregabalin Allergy Intermediate 05/27/16 Yes Physical Exam Physical Exam Constitutional: Well developed, well nourished, anxious and at times rude during initial exam- redirection on pt's anxiety multiple times and after redirection she would sit up in bed without restlessness answering questions, non-toxic appearance. [] HENT: Normocephalic, atraumatic, mucous membranes pink/dry, nose normal. [] Eyes: Pupils equal, conjunctiva normal, no discharge. [] Neck: Normal range of motion, no tenderness, supple, no stridor. [] Cardiovascular: Heart rate regular rhythm, no murmur [] Lungs & Thorax: Bilateral breath sounds clear to auscultation. Resp. equal/ nonlabored Abdomen: Bowel sounds normal, soft, no tenderness, no masses, no pulsatile masses. [] Skin: Warm, dry, no erythema, no rash. [] Back: Tender on palp. rt lower back with palp. stimulator- no erythema/swelling/ crepitus at site. Mid line spine palpated with pt reporting no acute changes to chronic mid spinal pain, no CVA tenderness. [] Extremities: No tenderness, no cyanosis, no clubbing, ROM intact, no edema. 2+ dorsalis pedis/posterior tibial Neurologic: Alert and oriented X 3, normal motor function, normal sensory function, no focal deficits noted. [] Psychologic: Affect normal, judgement normal, anxious and restless intermittently during exam. Denies SI. Was redirected multiple times- she would become rude with responses and then was apologetic. Current Patient Data Vital Signs EKG EKG [] Radiology/Procedures Radiology/Procedures [] Course & Med Decision Making Course & Med Decision Making Pt was evaluated in the ER on 08/23/18 for similar c/o back pain and had xray with report of "1. Mild loss of height centrally superior endplate of L1. Finding is new from prior study. Correlate to any point tenderness. 2. Old compression fracture of L2 vertebra treated with vertebroplasty. Slight retropulsion of L2 is stable". Pt reported her pain is no different than chronic in mid line spine during her exam pt had c/o rt lower back pain denying urinary sxs- and she did have UA done 08/23/18 in ER neg. for nitrates/leuks/ blood. In-depth conversation had with patient regarding chronic pain and treatment options. Patient reports she had taken her oxycodone this morning discuss no narcotics being provided while in the ER. Discussed patient needing to establish pain management doctor for outpatient treatment. Patient reports she has appointment scheduled with her primary care physician on Saturday. Patient states she was advised to come to the ER for pain treatment. Further discussion had with patient as she reports his pain is chronic in nature and she has fentanyl patches as well as oxycodone at home. Patient was offered Toradol, Flexeril, and Lidoderm patch and she is agreeable with this although multiple times states she doesn't feel Toradol is a good medicine. Patient has had multiple images in the past with recent while in the ER last week which was discussed with her. Patient has stimulator inserted right lower back which was palpable skin surrounding area was normal limits with no erythema, palpable mass , wounds, or swelling at the site. Patient had full range of motion in bilateral lower extremities denying any incontinence of bowel or bladder, urinary changes, bowel pattern changes, or saddle anesthesia. Patient denies any urinary symptoms or fever. Patient was visualized with steady gait unassisted. Patient was PMS intact distal extremities with no pedal edema. Skin color was normal limits. Calf size symmetric bilateral. Will provide pt with pain management referral info. Pt encouraged to keep appt with her PCP. Following d/c discussion pt was visualized by this provider ambulatory to bathroom with steady unassisted gait- no facial grimacing while walking. Staff Physician Addendum: I was working in the ER during the course of this patient's visit. I was available for consultation as needed, but I was not directly involved in the care of this patient. Dragon Disclaimer Dragon Disclaimer This electronic medical record was generated, in whole or in part, using a voice recognition dictation system. Departure Departure Impression: Primary Impression: Chronic back pain Disposition: HOME, SELF-CARE Condition: STABLE Referrals: DENICE MASTERS MD (PCP) Patient Instructions: Chronic Back Pain Additional Instructions: As discussed keep your appointment with your primary care physician on Saturday. Continue home medications as prescribed. You need to establish a pain management doctor to further provide pain control as the Emergency Department is not able to manage chronic pain. TYRON HARRISON APRN Aug 27, 2018 11:28 POLO ALEMAN MD Nov 30, 2018 21:35
[2018-08-27] MEDS ORDERED: KETOROLAC 30 MG/ML VIAL. IM ONE (11:45)
[2018-08-27] MEDS ORDERED: CYCLOBENZAPRINE 10 MG TABLET. PO ONE (11:45)
[2018-08-27] MEDS ORDERED: LIDOCAINE (700MG/PATCH) PATCH. TD ONE (12:00)
[2018-10-18] MEDS ORDERED: ISOS30TA4 PO (10:35)
[2018-10-18] MEDS ORDERED: ATOR40TA59 PO (10:35)
[2018-10-18] MEDS ORDERED: LOSA-73 PO (10:35)
[2018-10-18] MEDS ORDERED: INSU100I13 SQ (10:35)
[2018-10-18] MEDS ORDERED: INSU100I11 SQ (10:35)
[2019-03-10] MEDS ORDERED: ORPH100T PO (21:32)
[2019-03-10] MEDS ORDERED: LIDO700A21 TP (21:33)
== END 2018-08-27 11:52 | disposition left against medical advice (07) ==
LOC: ER 10:31
DX: G89.29 Other chronic pain (principal); M54.5 Low back pain; E11.9 Type 2 diabetes mellitus without complications; I11.9 Hypertensive heart disease without heart failure; I25.10 Atherosclerotic heart disease of native coronary artery without angina pectoris; F31.9 Bipolar disorder, unspecified; K58.9 Irritable bowel syndrome, unspecified; E11.43 Type 2 diabetes mellitus with diabetic autonomic (poly)neuropathy; K31.84 Gastroparesis; Z90.89 Acquired absence of other organs; Z90.49 Acquired absence of other specified parts of digestive tract; Z90.710 Acquired absence of both cervix and uterus; Z95.5 Presence of coronary angioplasty implant and graft; Z95.1 Presence of aortocoronary bypass graft; Z98.84 Bariatric surgery status; Z88.0 Allergy status to penicillin; Z88.1 Allergy status to other antibiotic agents; Z91.041 Radiographic dye allergy status; Z88.8 Allergy status to other drugs, medicaments and biological substances
CPT/HCPCS: 99284

== ENCOUNTER → 2018-09-03 | Outpatient (CLI) | payer MEDICARE, OTHER ==
[2018-08-27 10:50] VITALS: BP 173/84
[~2018-09-03] MED LIST changes: +AMLO10TA6 PO; -AMLO10TA8 PO; -AMLO5TAB10 PO; +AMLO5TAB7 PO; -CYAN-25 PO; +CYAN10005 PO; +PANT40TA5 PO; -PANT40TA77 PO
--- NOTE | 2018-09-03 11:06 | KCIC ---
Limited abdominal Doppler ultrasound History: Abdominal pain Comparison: April 15, [address] exam Findings: Multiple sonographic images of the abdomen are submitted. Exam is very limited due to bowel gas. Hepatic artery was apparently visualized, peak systolic velocity of 74 cm/s. Distal abdominal aorta PSV was 86 cm/s. Mid superior mesenteric artery is segmental visualized with velocity of 115 cm/s. Otherwise vascular structures of the abdomen are not seen on this exam including the proximal and distal superior mesenteric artery as well as celiac artery. Abdominal aorta is also not well visualized. Impression: 1. Exam is very limited due to bowel gas, only mid superior mesenteric artery and hepatic artery visualized which are patent. Electronically signed by: Juan José Schilling MD (09/03/2018 11:01 AM) [facility]
== END | disposition home or self-care (01) ==
LOC: KCIC US 09:41
PROVIDERS: ATTEND Internal Medicine
DX: R10.84 Generalized abdominal pain (principal)
CPT/HCPCS: 93976

== ENCOUNTER → 2018-09-09 | Outpatient (CLI) | payer MEDICARE, OTHER ==
[2018-08-27 10:50] VITALS: BP 173/84
--- NOTE | 2018-09-09 17:02 | KCIC ---
CT lumbar spine without contrast 09/09/2018 Clinical indications: Chronic low back pain. COMPARISON: Lumbar spine radiograph 08/23/2018. TECHNIQUE: Multiple CT images of the lumbar spine were obtained without contrast. *One or more of the following individualized dose reduction techniques were utilized for this examination: 1. Automated exposure control. 2. Adjustment of the mA and/or kV according to patient size. 3. Use of iterative reconstruction technique. FINDINGS: There are 5 nonrib-bearing lumbar-type vertebral bodies with the 1st considered L1. There is an acute to subacute appearing compression fracture at L1 extending through the anterior and posterior cortex resulting in 25 percent vertebral body height loss and central posterior bony retropulsion resulting in mild spinal canal narrowing. There is a stable appearing moderate compression deformity at L2 with prior spinal augmentation with unchanged mild bony retropulsion with effacement of the anterior thecal sac and no significant spinal canal narrowing. There is diffuse bony demineralization. There is a little right flank generator with a sacral stimulator lead and a dorsal column similar marketing communications leader coursing cephalad beyond the [id number]. The paraspinal soft tissues are unremarkable. There is extensive aortoiliac calcified plaque including the origins of the major branch vessels with luminal stenosis and patency not assessed due to lack of intravenous contrast. Segmental analysis: At T12-L1, bony retropulsion results in mild central spinal canal narrowing without significant neural foraminal narrowing. At L1-L2, there is mild central bony retropulsion at the superior aspect of L1 which effaces the anterior thecal sac with facet hypertrophy without significant spinal canal narrowing or neural foraminal narrowing. At L2-L3, no significant in spinal canal narrowing. At L3-L4, minimal facet hypertrophy without significant spinal canal or neural foraminal narrowing. At L4-L5, moderate bilateral facet hypertrophy without significant spinal canal or neural foraminal narrowing. At L5-S1, moderate bilateral facet hypertrophy without significant spinal canal or neural foraminal narrowing. IMPRESSION: 1. Acute to subacute, [id number], L1 compression deformity with bony retropulsion resulting in mild spinal canal narrowing. 2. Stable moderate L2 compression deformity with minimal bony retropulsion without significant spinal canal narrowing. 3. Osteopenia. Electronically signed by: Pantera Hough MD (09/09/2018 4:57 PM) [facility]
== END | disposition home or self-care (01) ==
LOC: KCIC CT 11:07
PROVIDERS: ATTEND Internal Medicine
DX: M48.061 Spinal stenosis, lumbar region without neurogenic claudication (principal); M43.8X6 Other specified deforming dorsopathies, lumbar region; M85.89 Other specified disorders of bone density and structure, multiple sites; I70.0 Atherosclerosis of aorta
CPT/HCPCS: 72131

== ENCOUNTER 2018-10-14 13:48 | Inpatient (IN) | payer MEDICARE, OTHER ==
[~2018-10-14] VITALS: Ht 152.4 cm; Wt 70.3 kg
[~2018-10-14 13:48] MED LIST changes: -AMLO10TA6 PO; +AMLO10TA8 PO; +AMLO5TAB10 PO; -AMLO5TAB7 PO
[2018-10-14 14:14] LABS: BILIRUBIN,URINE NEGATIVE (NEG); CLARITY,URINE CLEAR; COLOR,URINE YELLOW; NITRITE,URINE NEGATIVE (NEG); PROTEIN,URINE NEGATIVE (NEG-TRACE); UROBILINOGEN,URINE 0.2 mg/dL (0.2 mg/dL)
--- NOTE | 2018-10-14 14:15 | PHYS DOC ---
Past Medical History Past Medical History: Bipolar, CAD, Diabetes-Type II, Heart Disease, Hypertension, IBS, Seizure, Other Additional Past Medical Histor: Gastroparesis, CHRONIC PAIN Past Surgical History: Appendectomy, Cholecystectomy, Coronary Bypass Surgery, Hysterectomy, Other Additional Past Surgical Histo: Cardiac stents x 5, CABG, Fused R)ankle surgery , thyroidectomy,pain stimul Alcohol Use: None Drug Use: None Adult General Chief Complaint Chief Complaint: OTHER COMPLAINTS HPI HPI 72-year-old female presents to ER via EMS with complaints of mid back pain which radiates into her chest. Patient reports her pain is been ongoing for several weeks and was seen by her primary care physician Dr. Masters 2 weeks ago for similar pain. Patient states she took her prescribed oxycodone this morning as well as Tylenol. Patient states pain was minimally improved with those medications. Patient has prescribed fentanyl patch which upon arrival was found to be located on her sweatpants. Patch had been in place for 3 days and she is due to change her patch. Patient reports past history of compression fractures with surgical repair which causes her chronic pain. She denies any numbness or tingling, saddle anesthesia, or incontinence of bowel or bladder. She denies any dysuria/hematuria or change in urinary pattern. Patient denies any abdominal pain, nausea or vomiting, or diarrhea. Patient denies fever, cough , or shortness of air. Patient denies any recent travel. Patient denies swelling in extremities. Review of Systems Review of Systems Constitutional: Denies fever or chills [] Eyes: Denies change in visual acuity, redness, or eye pain [] HENT: Denies nasal congestion or sore throat [] Respiratory: Denies cough or shortness of breath [] Cardiovascular: Mid CP GI: Denies abdominal pain, nausea, vomiting, bloody stools or diarrhea [] : Denies dysuria or hematuria [] Musculoskeletal: Denies joint pain. Pt reports mid back pain radiating into mid chest Integument: Denies rash, swelling or skin lesions [] Neurologic: Denies headache, focal weakness or sensory changes. Denies numbness/ tingling Endocrine: Denies polyuria or polydipsia [] All other systems were reviewed and found to be within normal limits, except as documented in this note. Current Medications Current Medications Current Medications Medications (Trade) Dose Ordered Sig/Melanie Start Time Stop Time Status Last Admin Dose Admin Fentanyl (Duragesic 25mcg/ Hr Patch) 1 patch 1X ONCE 10/14/18 16:00 10/14/18 16:01 DC 10/14/18 15:41 1 PATCH Ketorolac Tromethamine (Toradol Im) 30 mg 1X ONCE 10/14/18 16:00 10/14/18 16:01 DC 10/14/18 15:36 30 MG Lidocaine (Lidoderm) 1 patch 1X ONCE 10/14/18 14:45 10/14/18 14:46 DC 10/14/18 15:33 1 PATCH Allergies Allergies Allergies Coded Allergies Type Severity Reaction Last Updated Verified Iodinated Contrast- Oral and IV Dye Allergy Severe Anaphylaxis 05/27/18 Yes Penicillins Allergy Intermediate 05/27/18 Yes atenolol Allergy Intermediate TAKES METOPROLOL AT HOME 05/27/18 Yes erythromycin base Allergy Intermediate 05/27/18 Yes iodine Allergy Intermediate 05/27/18 Yes levofloxacin Allergy Intermediate 05/27/18 Yes pregabalin Allergy Intermediate 05/27/16 Yes Physical Exam Physical Exam Constitutional: Well developed, well nourished, anxious/restless, non-toxic appearance. [] HENT: Normocephalic, atraumatic, mucous membranes pink/dry, no oral exudates, nose normal. [] Eyes: Pupils equal, conjunctiva normal, no discharge. [] Neck: Normal range of motion, no tenderness, supple, no stridor. Trachea midline Cardiovascular: Tachycardic heart rate regular rhythm- 102 during exam- pt was anxious, no murmur [] Lungs & Thorax: Bilateral breath sounds clear to auscultation- pt was anxious and had rapid breathing- with redirection she was able to slow breathing. Resp. following redirection and education on breathing technique were equal/nonlabored Abdomen: Bowel sounds normal, soft/obese, no tenderness, no masses, no pulsatile masses. [] Skin: Warm, dry, no erythema, no rash. [] Back: Tender on palp.mid thoracic- no swelling/crepitus or skin discoloration- she is tender mid lumbar spine which she reports is chronic pain with no acute change; full ROM, no CVA tenderness. [] Extremities: No tenderness, no cyanosis, no clubbing, ROM intact, no edema. 2+ posterior tibial/dorsalis pedis Neurologic: Alert and oriented X 3, normal motor function, normal sensory function, no focal deficits noted. [] Psychologic: Affect normal, judgement normal, anxious during exam- have cared for pt during previous ER visits and behavior/anxiety NL for her. [] Current Patient Data Vital Signs Vital Signs Date Time Temp Pulse Resp B/P (MAP) Pulse Ox O2 Delivery O2 Flow Rate FiO2 10/14/18 17:00 94 20 156/67 (96) 97 Room Air 10/14/18 14:02 98.2 98.2 Lab Values Laboratory Tests Test 10/14/18 14:00 10/14/18 14:31 Urine Collection Type Void Urine Color Yellow Urine Clarity Clear Urine pH 8.0 Urine Specific Arrey 1.015 Urine Protein Negative mg/dL (NEG-TRACE) Urine Glucose (UA) >=1000 mg/dL (NEG) Urine Ketones (Stick) 15 mg/dL (NEG) Urine Blood Negative (NEG) Urine Nitrite Negative (NEG) Urine Bilirubin Negative (NEG) Urine Urobilinogen Dipstick 0.2 mg/dL (0.2 mg/dL) Urine Leukocyte Esterase Small (NEG) Urine RBC 1-2 /HPF (0-2) Urine WBC 5-10 /HPF (0-4) Urine Squamous Epithelial Cells Mod /LPF Urine Bacteria Few /HPF (0-FEW) White Blood Count 7.3 x10^3/uL (4.0-11.0) Red Blood Count 4.36 x10^6/uL (3.50-5.40) Hemoglobin 13.2 g/dL (12.0-15.5) Hematocrit 39.4 % (36.0-47.0) Mean Corpuscular Volume 90 fL (79-100) Mean Corpuscular Hemoglobin 30 pg (25-35) Mean Corpuscular Hemoglobin Concent 34 g/dL (31-37) Red Cell Distribution Width 15.9 % (11.5-14.5) H Platelet Count 343 x10^3/uL (140-400) Neutrophils (%) (Auto) 67 % (31-73) Lymphocytes (%) (Auto) 24 % (24-48) Monocytes (%) (Auto) 7 % (0-9) Eosinophils (%) (Auto) 1 % (0-3) Basophils (%) (Auto) 1 % (0-3) Neutrophils # (Auto) 4.9 x10^3uL (1.8-7.7) Lymphocytes # (Auto) 1.8 x10^3/uL (1.0-4.8) Monocytes # (Auto) 0.5 x10^3/uL (0.0-1.1) Eosinophils # (Auto) 0.0 x10^3/uL (0.0-0.7) Basophils # (Auto) 0.1 x10^3/uL (0.0-0.2) Sodium Level 137 mmol/L (136-145) Potassium Level 3.5 mmol/L (3.5-5.1) Chloride Level 96 mmol/L (98-107) L Carbon Dioxide Level 25 mmol/L (21-32) Anion Gap 16 (6-14) H Blood Urea Nitrogen 8 mg/dL (7-20) Creatinine 0.8 mg/dL (0.6-1.0) Estimated GFR (Cockcroft-Gault) 70.5 BUN/Creatinine Ratio 10 (6-20) Glucose Level 279 mg/dL (70-99) H Calcium Level 9.9 mg/dL (8.5-10.1) Total Bilirubin 0.4 mg/dL (0.2-1.0) Aspartate Amino Transferase (AST) 22 U/L (15-37) Alanine Aminotransferase (ALT) 27 U/L (14-59) Alkaline Phosphatase 162 U/L (46-116) H Troponin I Quantitative < 0.017 ng/mL (0.000-0.055) Total Protein 8.0 g/dL (6.4-8.2) Albumin 4.0 g/dL (3.4-5.0) Albumin/Globulin Ratio 1.0 (1.0-1.7) Laboratory Tests 10/14/18 14:31 Laboratory Tests 10/14/18 14:31 EKG EKG EKG obtained 10/14/18 [address] Larios Sinus tachycardia Rate 105 No STEMI Radiology/Procedures Radiology/Procedures PROCEDURE: CHEST PA & LATERAL EXAM: PA and Lateral Views of the Chest DATE: 10/14/2018 12:00 AM INDICATION: UPPER BACK PAIN WORSENING THE LAST 3 DAYS COMPARISON: 04/15/2018 FINDINGS: The heart is not enlarged. Atherosclerotic calcifications of the tortuous aorta are seen. Patchy opacities bilateral lung bases likely atelectasis. No pleural effusion or pneumothorax. Minimal biapical pleural/parenchymal thickening/scarring. Vertebral augmentation-vertebroplasty/kyphoplasty changes are seen at multiple levels. Height loss of a midthoracic vertebral body, age-indeterminate compression fracture. Spinal stimulator lead is partially profiled. IMPRESSION: 1. Height loss of a midthoracic vertebral body, possibly T5 or T6 likely represents an age-indeterminate compression fracture. 2. No lobar consolidation. Electronically signed by: Roby Holder MD (10/14/2018 2:54 PM) [facility] DICTATED and SIGNED BY: ROBY HOLDER MD DATE: 10/14/18 4807 Course & Med Decision Making Course & Med Decision Making Pertinent Labs and Imaging studies reviewed. (See chart for details) 1505: Patient's chest xray report "Height loss of a midthoracic vertebral body, possibly T5 or T6 likely represents an age-indeterminate compression fracture" this was discussed with patient and she is uncertain that she's ever been diagnosed with a thoracic compression fracture. Patient is tender midline thoracic spine so will obtain CT for further evaluation. She has no crepitus or deformity on midline thoracic spine. Patient will be provided with dose of Toradol and have Lidoderm patch applied to focal area of tenderness on spine. Patient is due to have her fentanyl patch replaced today so will provide that while in the ER. Discussed other test results with the EKG showing no acute ST elevation or STEMI and troponin was <0.017. 1700: Spoke with Mariel Nitrate Operator with Dr. Mcgee, neurosurg. and discussed pt's case /imaging. She had Dr. Mcgee view pt's radiology images- she reports per Dr. Mcgee there is nothing for their services and they recommend f/u with Dr. Langford for possible brace/pain assist. Test results were discussed with pt with finding of T4/T6 acute-subacute compression fxs. Pt is requesting admission so will call and speak with pt's PCP and discuss her case. 1725: Spoke with Dr. Masters, pt's PCP and discussed pt's case and plan of care - will admit pt to his service with consult for Dr. Gage, IR. Will inform nurse caring for pt to obtain current home medication list to provide to pharmacy to have all home meds started while inpt. Per his request will place order for pt's regular Rx's Oxycodone 10/325 q 4 hrs PRN and provide pt with dose while in ER. Pt has remained PMS intact in all extremities and has been ambulatory with steady gait while in ER to bathroom multiple times. She has had no reports of incontinence of bowel/bladder. Will admit to Med/Surg for further monitoring/care. Dragon Disclaimer Dragon Disclaimer This electronic medical record was generated, in whole or in part, using a voice recognition dictation system. Departure Departure Impression: Primary Impression: Thoracic compression fracture Disposition: ADMITTED INPATIENT Admitting Physician: Natanael Masters Condition: STABLE Referrals: NATANAEL MASTERS MD (PCP) TYRON HARRISON APRN Oct 14, 2018 14:15
[2018-10-14 14:25] LABS: BACTERIA,URINE FEW /HPF (0-FEW); SQUAMOUS EPITHELIAL CELL,UR MOD /LPF
[2018-10-14 14:45] LABS: BASO # 0.1 x10^3/uL (0.0-0.2); BASO % 1 % (0-3); EOS % 1 % (0-3); HEMATOCRIT 39.4 % (36.0-47.0); HEMOGLOBIN 13.2 g/dL (12.0-15.5); LYMPH # 1.8 x10^3/uL (1.0-4.8); LYMPH % 24 % (24-48); MEAN CORPUSCULAR HEMOGLOBIN 30 pg (25-35); MEAN CORPUSCULAR HGB CONC 34 g/dL (31-37); MEAN CORPUSCULAR VOLUME 90 fL (79-100); MONO # 0.5 x10^3/uL (0.0-1.1); MONO % 7 % (0-9); NEUT # 4.9 x10^3uL (1.8-7.7); NEUT % 67 % (31-73); PLATELET COUNT 343 x10^3/uL (140-400); RED BLOOD COUNT 4.36 x10^6/uL (3.50-5.40); RED CELL DISTRIBUTION WIDTH 15.9 % (11.5-14.5); WHITE BLOOD COUNT 7.3 x10^3/uL (4.0-11.0)
[2018-10-14] MEDS ORDERED: LIDOCAINE (700MG/PATCH) PATCH. TD ONE (14:45)
[2018-10-14 14:50] LABS: CALCIUM 9.9 mg/dL (8.5-10.1); CREATININE 0.8 mg/dL (0.6-1.0); GFR 70.5; POTASSIUM 3.5 mmol/L (3.5-5.1)
[2018-10-14 14:56] LABS: TOTAL BILIRUBIN 0.4 mg/dL (0.2-1.0)
--- NOTE | 2018-10-14 14:57 | RAD ---
EXAM: PA and Lateral Views of the Chest DATE: 10/14/2018 12:00 AM INDICATION: UPPER BACK PAIN WORSENING THE LAST 3 DAYS COMPARISON: 04/15/2018 FINDINGS: The heart is not enlarged. Atherosclerotic calcifications of the tortuous aorta are seen. Patchy opacities bilateral lung bases likely atelectasis. No pleural effusion or pneumothorax. Minimal biapical pleural/parenchymal thickening/scarring. Vertebral augmentation-vertebroplasty/kyphoplasty changes are seen at multiple levels. Height loss of a midthoracic vertebral body, age-indeterminate compression fracture. Spinal stimulator lead is partially profiled. IMPRESSION: 1. Height loss of a midthoracic vertebral body, possibly T5 or T6 likely represents an age-indeterminate compression fracture. 2. No lobar consolidation. Electronically signed by: Roby Jacobs MD (10/14/2018 2:54 PM) [facility]
--- NOTE | 2018-10-14 15:00 | EKG ---
[facility] [address] [place] [address] Test Date: 2018-10-14 Test Time: 13:52:20 Pat Name: ORLIN ROJAS Department: Room: Gender: F Social Service Assistant: : 1945 Requested By: TYRON HARRISON Order Number: [id number] Reading MD: Antione Allen MD Measurements Intervals [place] Rate: 105 P: 45 WI: 152 QRS: -28 QRSD: 92 T: 100 QT: 348 QTc: 464 Interpretive Statements SINUS TACHYCARDIA LAD ANTEROSEPTAL INFARCT NON-SPECIFIC ST/T CHANGES Electronically Signed On 10-14-2018 15:23:39 INDUSTRY SEGMENT SPECIALIST by Antione Allen MD
[2018-10-14] MEDS ORDERED: fentaNYL 25MCG/HR PATCH 1 PATCH PATCH.TD72 TD ONE ×2 (16:00→18:00)
[2018-10-14] MEDS ORDERED: KETOROLAC 60 MG/2 ML VIAL. IM ONE (16:00)
--- NOTE | 2018-10-14 16:43 | RAD ---
CLINICAL HISTORY:mid thoracic back pain COMPARISON: CT 11/02/2014. TECHNIQUE: Helical CT of the thoracic spine was performed and axial, coronal and sagittal reformatted images were generated. PQRS compliance statement - One or more of the following individualized dose reduction techniques were utilized for this study: 1. Automated exposure control 2. Adjustment of the mA and/or kV according to patient size 3. Use of iterative reconstruction technique FINDINGS: T6 vertebral body height loss with associated transverse sclerotic band and cortical offset is suspicious for acute-subacute compression fracture, with approximately 50 percent height loss. There is also approximately 15 percent height loss of the T4 vertebral body also suspicious for subtle compression fracture. Changes of kyphoplasty/vertebral plasty are seen at L1 and L2. Mild retropulsion of the L1 and L2 vertebral body posterior vertebral body wall, chronic in appearance. Mild exaggeration of the normal thoracic kyphosis. No spondylolisthesis. Degenerative changes are seen including anterior endplate osteophytes. Mild to moderate multilevel disc height loss. Dense aortic calcifications are seen. Small hiatal hernia. 4 mm left lower lobe lung nodule stable to prior CT thoracic spine 11/02/2014 IMPRESSION: 1. Acute-subacute fracture of the T6 vertebral body with approximately 50 percent height loss. 2. Subtle T4 compression fracture may also be acute-subacute with approximately 15 percent height loss. Electronically signed by: Roby Jacobs MD (10/14/2018 4:40 PM) [facility]
[2018-10-14] MEDS ORDERED: oxyCODONE/APAP 10/325 1 TAB TABLET PO ONE (17:30)
[2018-10-14] MEDS ORDERED: NITROGLYCERIN SUBLINGUAL 0.4 MG BOTTLE OF 25. SL PRN (18:00)
[2018-10-14] MEDS ORDERED: MAGNESIUM HYDROXIDE 2,400 MG/30 ML ORAL.SUSP. PO PRN (18:00)
[2018-10-14 19:00] VITALS: BP 150/67
[2018-10-14] MEDS ORDERED: POTASSIUM CHLORIDE 20 MEQ TABLET.ER. PO ONE (19:00)
[2018-10-14] MEDS: oxyCODONE IR 5 MG TABLET PO PRN ×2 (19:19→23:43)
[2018-10-14] MEDS: oxyCODONE/APAP 10/325 1 TAB TABLET PO PRN (20:09)
[2018-10-14] MEDS: PATCH REMOVAL. MC SCH (21:00)
[2018-10-14] MEDS: LORazepam 1 MG TABLET PO PRN (21:51)
[2018-10-14] MEDS: ACETAMINOPHEN 325 MG TABLET. PO PRN (21:51)
[2018-10-14] MEDS: ATORVASTATIN CALCIUM 40 MG TABLET. PO SCH (21:52)
[2018-10-14] MEDS: METOCLOPRAMIDE ORAL SOLN 10 MG/10 ML SOLUTION. PO SCH (21:52)
[2018-10-14] MEDS: levETIRAcetam 500 MG TABLET PO SCH (21:52)
[2018-10-14] MEDS: INSULIN GLARGINE 300 UNITS/3 ML INSULN.PEN. SQ SCH (21:59)
--- NOTE | 2018-10-14 22:00 | NUR ---
Pt's fentanyl and lidoderm patches not removed at this time d/t new ones in place from ED. Pt resting, will continue to monitor.
--- NOTE | 2018-10-14 22:00 | NUR ---
ADMIT The patient, Quynh Edwards 72 year old F, admitted by Dr. Masters, was given written information regarding hospital policies, unit procedures and contact persons. Pt. arrived to unit at 1830, report was received from Kiara LOCKWOOD. Pt. A&O x4, afebrile, and c/o severe pain. Pt. medications reviewed, admission assessment complete, and plan of care reviewed. Valuables were checked and left in room w/ pt. Pt. call light in reach, and will continue to monitor.
[2018-10-14 23:00] VITALS: BP 113/68
[2018-10-15] VITALS (7 sets, daily range): BP systolic 93–138; BP diastolic 45–74
[2018-10-15] MEDS: oxyCODONE/APAP 10/325 1 TAB TABLET PO PRN ×6 (00:27→23:56)
--- NOTE | 2018-10-15 03:00 | NUR ---
Pt's lidoderm patch removed at this time.
[2018-10-15] MEDS: oxyCODONE IR 5 MG TABLET PO PRN ×4 (04:35→17:10)
[2018-10-15] MEDS: LEVOTHYROXINE 75 MCG TABLET PO SCH (06:13)
[2018-10-15] MEDS: METOCLOPRAMIDE ORAL SOLN 10 MG/10 ML SOLUTION. PO SCH ×4 (07:37→21:26)
[2018-10-15] MEDS: PIOGLITAZONE 15 MG TABLET. PO SCH (08:35)
[2018-10-15] MEDS: MULTIVITAMIN with MINERAL TABLET. PO SCH (08:37)
[2018-10-15] MEDS: METOPROLOL SUCC 24HR ER 50 MG TAB.ER.24H. PO SCH (08:37)
[2018-10-15] MEDS: levETIRAcetam 500 MG TABLET PO SCH ×2 (08:38→21:26)
[2018-10-15] MEDS: ASPIRIN ENTERIC COATED 81 MG TABLET.DR. PO SCH (08:38)
[2018-10-15] MEDS: LIDOCAINE (700MG/PATCH) PATCH. TD SCH (08:39)
[2018-10-15] MEDS: INSULIN LISPRO 300 UNITS/3 ML INSULN.PEN. SQ SCH ×3 (08:46→17:05)
[2018-10-15] MEDS ORDERED: amLODIPine BESYLATE 5 MG TABLET PO SCH (09:00)
[2018-10-15] MEDS ORDERED: ISOSORBIDE MONONITRATE ER 30 MG TAB.ER.24H PO SCH (09:00)
[2018-10-15] MEDS ORDERED: LOSARTAN POTASSIUM 50 MG TABLET. PO SCH (09:00)
[2018-10-15] MEDS: LORazepam 1 MG TABLET PO PRN ×3 (09:02→21:26)
--- NOTE | 2018-10-15 10:38 | PDOC ---
Provider Note Provider Note history and physical dictated # [id number] DENICE IZAGUIRRE MD Oct 15, 2018 10:38
--- NOTE | 2018-10-15 11:02 | HP ---
ADMIT DATE: 10/15/2018 LOCATION: She is in room 408. HISTORY OF PRESENT ILLNESS: The patient is a 72-year-old white female with history of diabetes mellitus type 2 on insulin with peripheral neuropathy, hypertension, hyperlipidemia, coronary artery disease, and a recent L1 kyphoplasty done for a lumbar vertebral compression fracture within the last month at [facility]. After the procedure she continued to have back pain, went to the [facility] where she was admitted and subsequently dismissed without any change in her medications. She was seen in the office for some back pain a few weeks ago actually and she was told to take some Aspercreme with lidocaine. She was doing better until yesterday when she noticed increasing back pain, sought help at [facility] Emergency Room where a CAT scan of the thoracic spine showed that she had a thoracic vertebral compression fractures and she had an acute or subacute fracture of T6 with 50% height loss and a T4 compression fracture, acute/subacute with 15% height loss. She notes pain and tenderness in her thoracic spine. She was subsequently admitted to the hospital for evaluation for kyphoplasty and pain control. She noted that she was in so much pain yesterday that she could not get up and walk around. ALLERGIES AND INTOLERANCES: INCLUDE IV IODINE, PENICILLIN, ATENOLOL, ERYTHROMYCIN, LEVAQUIN AND LYRICA. MEDICATIONS: Prior to admission include Actos 45 mg every day, amlodipine 10 mg every day, aspirin 81 mg every day, atorvastatin 40 mg every day, fentanyl 25 mcg patch every 72 hours, Imdur 60 mg every day, which she just told the nurse she was not taking at home; Keppra 1000 mg b.i.d., Lantus insulin 18 units at bedtime, levothyroxine 75 mcg every day, lorazepam 1 mg t.i.d. p.r.n., losartan 100 mg every day, metoclopramide 10 mg before meals t.i.d. and bedtime, metoprolol extended release 50 mg every day, multiple vitamin every day, nitroglycerin sublingual 0.4 mg p.r.n., NovoLog 12 units before meals t.i.d., oxycodone 10 mg t.i.d. p.r.n. PAST MEDICAL HISTORY: Significant for lumbar spondylosis, gastroesophageal reflux disease, kidney stones, diabetes mellitus on insulin, peripheral neuropathy, hypertension, hyperlipidemia, coronary artery disease. She had an L1 kyphoplasty earlier this year at [facility], has a history of left total knee arthroplasty. She had a 3-vessel coronary bypass graft surgery, open reduction and internal fixation for a right ankle fracture and then had a right ankle arthroplasty. She has had 3 stents to the left anterior descending coronary artery and a single stent to the circumflex coronary artery. She has had a tonsillectomy, cholecystectomy, appendectomy, thyroidectomy for multinodular goiter in 12/2017 and a Schatzki ring dilated. SOCIAL HISTORY: She does not drink alcohol nor does she smoke cigarettes. She is . FAMILY HISTORY: Noncontributory. REVIEW OF SYSTEMS: GENERAL: Denies any fever, chills or sweats in the last few days. CARDIOVASCULAR: No chest pain. PULMONARY: No cough or shortness of breath. GASTROINTESTINAL: No constipation. ENDOCRINE: She has diabetes mellitus. MUSCULOSKELETAL: Complains of back pain. The rest of systems reviewed are negative except as stated in history of present illness. PHYSICAL EXAMINATION: VITAL SIGNS: Temperature 97.5 degrees, apical pulse regular at 78, respiratory rate 16, blood pressure 102/64, oxygen saturation 96% on room air. HEENT: Eyes: Gaze is conjugate. Mouth: Tongue is midline. She wears dentures. NECK: No cervical lymphadenopathy or thyroid enlargement. HEART: Reveals an S1, S2. There is no S3 or murmur. LUNGS: Clear. ABDOMEN: Soft with no hepatosplenomegaly, masses or tenderness. BACK: Examination of her back shows that she has tenderness over the thoracic spine with a Lidoderm patch noted. EXTREMITIES: Lower extremities without edema. SKIN: No rashes. NEUROLOGIC: No focal weakness, although she cannot dorsiflex the right foot due to a right ankle fusion. LABORATORY DATA: White count 7.3, hemoglobin 13.2, platelet count 343,000, 67 polys and 24 lymphocytes. Sodium 137, potassium 3.5, chloride 96, total CO2 was 25. She received a single dose of potassium chloride x 1 last night. Blood sugar was 279. Fingerstick blood sugar this morning is 183. Liver function tests were normal. Troponin level is less than 0.017. Albumin 4.0. Urinalysis showed 1-2 red cells and 5-10 white cells. Her EKG showed normal sinus rhythm with no acute change. She had a chest x-ray done, which showed height loss of the mid thoracic vertebrae, which represented a compression fracture and chest x-ray was otherwise unremarkable. Then, she had a CAT scan of the thoracic spine done, which showed an acute/subacute T6 vertebral body fracture with a 50% height loss and a subtle T4 acute/subacute compression fracture of T4 with 15% height loss and a 4 mm left lower lobe lung nodule, stable on a CAT scan of thoracic spine done on 11/02/2014. ASSESSMENT: 1. Intractable back pain, most likely secondary to thoracic compression vertebral fractures involving T6 and T4. 2. Recent L1 kyphoplasty for a lumbar vertebral compression fracture. 3. Suspected osteoporosis. 4. Coronary artery disease. 5. Diabetes mellitus type 2. 6. Hypertension. 7. Hyperlipidemia. 8. Diabetic gastroparesis. 9. Diabetic peripheral neuropathy. PLAN: At this time is to consult Interventional Radiology who has been contacted to evaluate for a thoracic kyphoplasty. We will increase OxyContin to 10 mg p.o. every 4 hours while she is here, and she was told just to take it only for severe pain. The fentanyl patch was reapplied in the Emergency Room yesterday at 25 mcg every 72 hours. We will discontinue the Imdur if she says indeed that she does not take it anymore. DENICE IZAGUIRRE MD DR: MIKAL/mandy JOB#: [id number] / [id number]
--- NOTE | 2018-10-15 13:11 | PDOC ---
Provider Note Provider Note IR NOTE Imaging reviewed. Age indeterminant fractures at T4 and T6. Will order MRI for further eval to assess acuity, fracture morphology. Patient has plavix listed as outpatient medication. Asked nursing to verify last dose. Prefer 5 day hold before vertebral augmentation. VALERY HERNANDEZ MD Oct 15, 2018 13:11
--- NOTE | 2018-10-15 13:52 | PDOC ---
Provider Note Provider Note IR NOTE MRI not possible due to neurostimulator. Will get Bone Scan instead. VALERY HERNANDEZ MD Oct 15, 2018 13:52
--- NOTE | 2018-10-15 14:25 | NUR ---
SW following. Discussed with RN, RN advised no SW needs at this time. SW will continue to follow.
[2018-10-15] MEDS: PATCH REMOVAL. MC SCH (21:00)
[2018-10-15] MEDS: INSULIN GLARGINE 300 UNITS/3 ML INSULN.PEN. SQ SCH (21:00)
[2018-10-15] MEDS: ATORVASTATIN CALCIUM 40 MG TABLET. PO SCH (21:27)
[2018-10-16 03:00] VITALS: BP 122/69
[2018-10-16] MEDS: oxyCODONE/APAP 10/325 1 TAB TABLET PO PRN ×4 (04:00→19:56)
[2018-10-16] MEDS: METOCLOPRAMIDE ORAL SOLN 10 MG/10 ML SOLUTION. PO SCH ×4 (05:49→19:56)
[2018-10-16] MEDS: LEVOTHYROXINE 75 MCG TABLET PO SCH (05:50)
[2018-10-16] MEDS: LORazepam 1 MG TABLET PO PRN ×3 (05:50→20:00)
[2018-10-16] MEDS: ACETAMINOPHEN 325 MG TABLET. PO PRN (05:54)
--- NOTE | 2018-10-16 06:29 | NUR ---
Pt's blood sugar low, insulin held h/s. Pt c/o decreased appetite, encouraged to eat, snacks given. Sugar rechecked and was stable.
[2018-10-16 07:00] VITALS: BP 118/57
[2018-10-16] MEDS: oxyCODONE IR 5 MG TABLET PO PRN ×4 (07:55→22:10)
[2018-10-16] MEDS: ASPIRIN ENTERIC COATED 81 MG TABLET.DR. PO SCH (07:57)
[2018-10-16] MEDS: INSULIN LISPRO 300 UNITS/3 ML INSULN.PEN. SQ SCH ×3 (07:58→17:14)
[2018-10-16] MEDS: ISOSORBIDE MONONITRATE ER 30 MG TAB.ER.24H PO SCH (09:00)
[2018-10-16] MEDS: levETIRAcetam 500 MG TABLET PO SCH ×2 (09:34→19:55)
[2018-10-16] MEDS: PIOGLITAZONE 15 MG TABLET. PO SCH (09:34)
[2018-10-16] MEDS: MULTIVITAMIN with MINERAL TABLET. PO SCH (09:34)
[2018-10-16] MEDS: LOSARTAN POTASSIUM 50 MG TABLET. PO SCH (09:36)
[2018-10-16] MEDS: METOPROLOL SUCC 24HR ER 50 MG TAB.ER.24H. PO SCH (09:37)
[2018-10-16] MEDS: LIDOCAINE (700MG/PATCH) PATCH. TD SCH (09:38)
[2018-10-16 11:00] VITALS: BP 138/76
--- NOTE | 2018-10-16 11:38 | NUR ---
SW following. Discussed with RN. Pt having a bone scan today. No PT/OT needs. SW will continue to follow.
--- NOTE | 2018-10-16 12:49 | PDOC ---
PROGRESS NOTES Subjective Subjective has mid back pain and tenderness over thoracic spine. blood sugar 64 at hs but okay today. dr Gage ordered a bone scan since MRI of T-spine cannot be done due to pain stimulator. Objective Objective Vital Signs Date Time Temp Pulse Resp B/P (MAP) Pulse Ox O2 Delivery O2 Flow Rate FiO2 10/16/18 12:35 16 Room Air 10/16/18 11:00 97.9 77 138/76 (96) 98 97.9 Intake and Output 10/16/18 07:00 Intake Total 400 ml Balance 400 ml Intake Oral 400 ml # Voids 3 Physical Exam Abdomen: Soft Heart: Regular rate, Normal S1, Normal S2 Extremities: No edema General: Alert HEENT: Atraumatic Lungs: Clear to auscultation MUSCULOSKELETAL: Other (tender mid thoracic spine) Neuro: Normal speech Psych/Mental Status: Mental status NL Skin: No rashes Assessment Assessment Problems1. Intractable back pain, most likely secondary to thoracic compression vertebral fractures involving T6 and T4. 2. Recent L1 kyphoplasty for a lumbar vertebral compression fracture. 3. Suspected osteoporosis. 4. Coronary artery disease. 5. Diabetes mellitus type 2. 6. Hypertension. 7. Hyperlipidemia. 8. Diabetic gastroparesis. 9. Diabetic peripheral neuropathy. Medical Problems: (1) Thoracic compression fracture Status: Acute Plan Plan of Care bone scan analgesics lidoderm patch kyphoplasty if bone scan positive monitor blood sugars decrease insulin Comment Review of Relevant I have reviewed the following items maldonado (where applicable) has been applied. Labs Laboratory Tests Test 10/14/18 14:00 10/14/18 14:31 10/14/18 17:54 10/14/18 20:26 Urine Collection Type Void Urine Color Yellow Urine Clarity Clear Urine pH 8.0 Urine Specific [place] 1.015 Urine Protein Negative mg/dL (NEG-TRACE) Urine Glucose (UA) >=1000 mg/dL (NEG) Urine Ketones (Stick) 15 mg/dL (NEG) Urine Blood Negative (NEG) Urine Nitrite Negative (NEG) Urine Bilirubin Negative (NEG) Urine Urobilinogen Dipstick 0.2 mg/dL (0.2 mg/dL) Urine Leukocyte Esterase Small (NEG) Urine RBC 1-2 /HPF (0-2) Urine WBC 5-10 /HPF (0-4) Urine Squamous Epithelial Cells Mod /LPF Urine Bacteria Few /HPF (0-FEW) White Blood Count 7.3 x10^3/uL (4.0-11.0) Red Blood Count 4.36 x10^6/uL (3.50-5.40) Hemoglobin 13.2 g/dL (12.0-15.5) Hematocrit 39.4 % (36.0-47.0) Mean Corpuscular Volume 90 fL (79-100) Mean Corpuscular Hemoglobin 30 pg (25-35) Mean Corpuscular Hemoglobin Concent 34 g/dL (31-37) Red Cell Distribution Width 15.9 % (11.5-14.5) Platelet Count 343 x10^3/uL (140-400) Neutrophils (%) (Auto) 67 % (31-73) Lymphocytes (%) (Auto) 24 % (24-48) Monocytes (%) (Auto) 7 % (0-9) Eosinophils (%) (Auto) 1 % (0-3) Basophils (%) (Auto) 1 % (0-3) Neutrophils # (Auto) 4.9 x10^3uL (1.8-7.7) Lymphocytes # (Auto) 1.8 x10^3/uL (1.0-4.8) Monocytes # (Auto) 0.5 x10^3/uL (0.0-1.1) Eosinophils # (Auto) 0.0 x10^3/uL (0.0-0.7) Basophils # (Auto) 0.1 x10^3/uL (0.0-0.2) Sodium Level 137 mmol/L (136-145) Potassium Level 3.5 mmol/L (3.5-5.1) Chloride Level 96 mmol/L (98-107) Carbon Dioxide Level 25 mmol/L (21-32) Anion Gap 16 (6-14) Blood Urea Nitrogen 8 mg/dL (7-20) Creatinine 0.8 mg/dL (0.6-1.0) Estimated GFR (Cockcroft-Gault) 70.5 BUN/Creatinine Ratio 10 (6-20) Glucose Level 279 mg/dL (70-99) Calcium Level 9.9 mg/dL (8.5-10.1) Total Bilirubin 0.4 mg/dL (0.2-1.0) Aspartate Amino Transf (AST/SGOT) 22 U/L (15-37) Alanine Aminotransferase (ALT/SGPT) 27 U/L (14-59) Alkaline Phosphatase 162 U/L (46-116) Troponin I Quantitative < 0.017 ng/mL (0.000-0.055) Total Protein 8.0 g/dL (6.4-8.2) Albumin 4.0 g/dL (3.4-5.0) Albumin/Globulin Ratio 1.0 (1.0-1.7) Glucose (Fingerstick) 246 mg/dL (70-99) 272 mg/dL (70-99) Test 10/15/18 04:12 10/15/18 07:24 10/15/18 11:29 10/15/18 16:28 25-Hydroxy Vitamin D Total 15.6 ng/mL (30-100) Glucose (Fingerstick) 183 mg/dL (70-99) 91 mg/dL (70-99) 213 mg/dL (70-99) Test 10/15/18 20:29 10/15/18 20:31 10/15/18 21:29 10/16/18 07:51 Glucose (Fingerstick) 61 mg/dL (70-99) 64 mg/dL (70-99) 124 mg/dL (70-99) 185 mg/dL (70-99) Laboratory Tests Test 10/15/18 16:28 10/15/18 20:29 10/15/18 20:31 10/15/18 21:29 Glucose (Fingerstick) 213 mg/dL (70-99) 61 mg/dL (70-99) 64 mg/dL (70-99) 124 mg/dL (70-99) Test 10/16/18 07:51 Glucose (Fingerstick) 185 mg/dL (70-99) Microbiology 10/14/18 Urine Culture - Final, Complete 10/14/18 Urine Culture Result 1 (JUDY) - Final, Complete Medications Current Medications Lidocaine (Lidoderm) 1 patch 1X ONCE TD Last administered on 10/14/18at 15:33; Start 10/14/18 at 14:45; Stop 10/14/18 at 14:46; Status DC Fentanyl (Duragesic 25mcg/ Hr Patch) 1 patch 1X ONCE TD Last administered on at 15:41; Start 10/14/18 at 16:00; Stop 10/14/18 at 16:01; Status DC Ketorolac Tromethamine (Toradol Im) 30 mg 1X ONCE IM Last administered on 15:36; Start 10/14/18 at 16:00; Stop 10/14/18 at 16:01; Status DC Oxycodone/ Acetaminophen (Percocet 10/325) 1 tab 1X ONCE PO Last administered on 10/14/18 17:35; Start 10/14/18 at 17:30; Stop 10/14/18 at 18:13; Status DC Pioglitazone HCl (Actos) 45 mg DAILY PO Last administered on 10/16/18 09:34; Start 10/15/18 at 09:00 Amlodipine Besylate (Norvasc) 10 mg DAILY PO Last administered on 10/15/18 08: 38; Start 10/15/18 at 09:00; Stop 10/15/18 at 10:41; Status DC Aspirin (Ecotrin) 81 mg DAILYWBKFT PO Last administered on 10/16/18 07:57; Start 10/15/18 at 08:00 Atorvastatin Calcium (Lipitor) 40 mg QHS PO Last administered on 10/15/18 21:27 ; Start 10/14/18 at 21:00 Fentanyl (Duragesic 25mcg/ Hr Patch) 1 patch 1X ONCE TD ; Start 10/14/18 at 18: 00; Stop 10/14/18 at 18:44; Status DC Isosorbide Mononitrate (Imdur) 60 mg DAILY PO ; Start 10/15/18 at 09:00; Stop 10/15/18 at 10:41; Status DC Levetiracetam (Keppra) 1,000 mg BID PO Last administered on 10/16/18 09:34; Start 10/14/18 at 21:00 Insulin Glargine (Lantus) 18 units QHS SQ Last administered on 10/14/18 21:59; Start 10/14/18 at 21:00 Levothyroxine Sodium (Synthroid) 75 mcg DAILY06 PO Last administered on 05:50; Start 10/15/18 at 06:00 Lorazepam (Ativan) 1 mg PRN TID PRN PO ANXIETY / AGITATION Last administered on 10/16/18 05:50; Start 10/14/18 at 18:00 Losartan Potassium (Cozaar) 100 mg DAILY PO ; Start 10/15/18 at 09:00; Stop at 10:41; Status DC Metoclopramide HCl (Reglan Oral Solution) 10 mg TIDACHC PO Last administered on 10/16/18 12:12; Start 10/14/18 at 21:00 Metoprolol Succinate (Toprol Xl) 50 mg DAILY PO Last administered on 10/16/18 09:37; Start 10/15/18 at 09:00 Nitroglycerin (Nitrostat) 0.4 mg PRN Q5MIN PRN SL CHEST PAIN; Start 10/14/18 at 18:00 Multivitamins (Thera M Plus) 1 tab DAILY PO Last administered on 10/16/18 09:34 ; Start 10/15/18 at 09:00 Insulin Human Lispro (HumaLOG) 12 units TIDAC SQ Last administered on 10/16/18 07:58; Start 10/15/18 at 07:30 Oxycodone HCl (Roxicodone) 10 mg PRN Q4HRS PRN PO SEVERE PAIN Last administered on 10/16/18 12:35; Start 10/14/18 at 18:00 Acetaminophen (Tylenol) 650 mg PRN Q4HRS PRN PO MILD PAIN / TEMP Last administered on 10/16/18 05:54; Start 10/14/18 at 18:00 Magnesium Hydroxide (Milk Of Magnesia) 2,400 mg PRN DAILY PRN PO CONSTIPATION; Start 10/14/18 at 18:00 Lidocaine (Lidoderm) 1 patch DAILY TD Last administered on 10/16/18 09:38; Start 10/15/18 at 09:00 Oxycodone/ Acetaminophen (Percocet 10/325) 1 tab PRN Q4HRS PRN PO MODERATE PAIN Last administered on 10/16/18 10:12; Start 10/14/18 at 18:15 Potassium Chloride (Klor-Con) 20 meq 1X ONCE PO Last administered on 10/14/18 19:00; Start 10/14/18 at 19:00; Stop 10/14/18 at 19:01; Status DC Miscellaneous (Lidoderm Patch Removal) 1 ea QHS MC Last administered on at 21:00; Start 10/14/18 at 21:00 Isosorbide Mononitrate (Imdur) 30 mg DAILY PO ; Start 10/16/18 at 09:00 Losartan Potassium (Cozaar) 50 mg DAILY PO Last administered on 10/16/18at 09:36 ; Start 10/16/18 at 09:00 Active Scripts Active Oxycodone Hcl Immed.release (Oxycodone Hcl) 10 Mg Tablet 10 Mg PO PRN Q6HRS PRN Thera-M Tablet (Multivits,Ca,Minerals/Iron/Fa) 1 Each Tablet 1 Tab PO DAILY 30 Days Vitamin B-12 (Cyanocobalamin (Vitamin B-12)) 1,000 Mcg Tablet 1,000 Mcg PO DAILY 30 Days Synthroid (Levothyroxine Sodium) 75 Mcg Tablet 75 Mcg PO DAILY07 30 Days Humalog (Insulin Lispro) 100 Unit/1 Ml Insuln.pen 12 Units SQ TIDWMEALS 30 Days Lantus Solostar (Insulin Glargine,Hum.rec.anlog) 100 Unit/1 Ml Insuln.pen 12 Units SQ QHS 30 Days Metoprolol Succinate 50 Mg Tab.er.24h 50 Mg PO DAILY 30 Days Dicyclomine Hcl 10 Mg Capsule 10 Mg PO PRN Q6HRS PRN 30 Days Vitamin B-12 (Cyanocobalamin (Vitamin B-12)) 1,000 Mcg Tablet 1,000 Mcg PO DAILY 30 Days Metoclopramide Hcl 10 Mg/10 Ml Solution 10 Mg PO TIDACHC 30 Days Aspirin 325 Mg Tablet 81 Mg PO DAILYWBKFT 30 Days Cozaar (Losartan Potassium) 50 Mg Tablet 100 Mg PO DAILY 30 Days Amlodipine Besylate 5 Mg Tablet 5 Mg PO DAILY 30 Days Nitrostat (Nitroglycerin) 0.4 Mg Tab.subl 0.4 Mg SL PRN Q5MIN PRN 30 Days Isosorbide Mononitrate Er (Isosorbide Mononitrate) 30 Mg Tab.er.24h 60 Mg PO DAILY 30 Days Atorvastatin Calcium 40 Mg Tablet 40 Mg PO QHS 30 Days Ranexa (Ranolazine) 500 Mg Tab.er.12h 1,000 Mg PO BID 30 Days Keppra (Levetiracetam) 500 Mg Tablet 1,000 Mg PO BID 30 Days [Pioglitazone Hcl] 15 MG Tablet 45 Mg PO DAILY Lorazepam 1 Mg Tablet 1 Mg PO PRN TID PRN Pantoprazole Sodium 40 Mg Tablet.dr 40 Mg PO BIDAC Ondansetron Odt (Ondansetron) 4 Mg Tab.rapdis 4 Mg PO TIDAC FENTANYL 25mcg/hr (Fentanyl) 1 Each Patch.td72 1 Patch TD Q3DAYS Reported Ambien (Zolpidem Tartrate) 5 Mg Tablet 5 Mg PO HS Clopidogrel (Clopidogrel Bisulfate) 75 Mg Tablet 75 Mg PO DAILY Vitals/I & O Vital Sign - Last 24 Hours 10/15/18 10/15/18 10/15/18 10/15/18 14:30 15:00 17:10 19:00 Temp 97.7 97.9 97.7 97.9 Pulse 84 83 Resp 16 16 16 18 B/P (MAP) 138/74 (95) 94/45 (61) Pulse Ox 97 96 O2 Delivery Room Air Room Air Room Air Room Air 10/15/18 10/15/18 10/15/18 10/15/18 19:50 19:56 20:20 23:00 Temp 98.2 98.2 Pulse 76 73 Resp 16 18 16 B/P (MAP) 126/66 (86) 125/68 (87) Pulse Ox 97 92 O2 Delivery Room Air Room Air Room Air Room Air 10/15/18 10/16/18 10/16/18 10/16/18 23:56 03:00 04:00 05:00 Temp 98.3 98.3 Pulse 72 Resp 16 18 18 16 B/P (MAP) 122/69 (86) Pulse Ox 96 O2 Delivery Room Air Room Air Room Air Room Air 10/16/18 10/16/18 10/16/18 10/16/18 07:00 07:30 07:55 08:55 Temp 97.9 97.9 Pulse 79 Resp 16 16 16 B/P (MAP) 118/57 (77) Pulse Ox 97 O2 Delivery Room Air Room Air Room Air Room Air 10/16/18 10/16/18 10/16/18 10/16/18 09:36 09:37 10:12 11:00 Temp 97.9 97.9 Pulse 79 79 77 Resp 16 16 B/P (MAP) 118/57 118/57 138/76 (96) Pulse Ox 98 O2 Delivery Room Air Room Air 10/16/18 12:35 Resp 16 O2 Delivery Room Air Intake and Output 10/15/18 10/15/18 10/16/18 15:00 23:00 07:00 Intake Total 400 ml Balance 400 ml DENICE IZAGUIRRE MD Oct 16, 2018 12:49
[2018-10-16 15:00] VITALS: BP 130/62
--- NOTE | 2018-10-16 15:24 | RAD ---
Limited bone scan, 10/16/2018: HISTORY: Thoracic fractures of indeterminate ages Imaging of the thoracic spine was performed following IV administration of 27 mCi of technetium 99m MDP. The study is correlated with a CT thoracic spine exam from 10/14/2018. The following findings are delineated: 1. There is moderately increased activity in the mid thoracic spine. This suggests that the known T6 vertebral compression fracture is subacute. 2. There is also moderately increased activity at the thoracolumbar junction. This apparently corresponds to a known subacute L1 vertebral compression fracture which has been treated with vertebroplasty. 3. No other significant focal abnormal thoracic spine activity is identified. Electronically signed by: Parvez Richardson MD (10/16/2018 3:21 PM) [facility]
[2018-10-16 16:48] LABS: PROTHROMBIN TIME PATIENT 12.2 SEC (11.7-14.0)
[2018-10-16 19:00] VITALS: BP 106/52
[2018-10-16 19:03] LABS: BASO # 0.1 x10^3/uL (0.0-0.2); BASO % 1 % (0-3); EOS # 0.1 x10^3/uL (0.0-0.7); EOS % 1 % (0-3); HEMATOCRIT 38.8 % (36.0-47.0); HEMOGLOBIN 12.6 g/dL (12.0-15.5); LYMPH # 1.8 x10^3/uL (1.0-4.8); LYMPH % 22 % (24-48); MEAN CORPUSCULAR HEMOGLOBIN 30 pg (25-35); MEAN CORPUSCULAR HGB CONC 33 g/dL (31-37); MEAN CORPUSCULAR VOLUME 92 fL (79-100); MONO # 0.6 x10^3/uL (0.0-1.1); MONO % 7 % (0-9); NEUT # 5.7 x10^3uL (1.8-7.7); NEUT % 69 % (31-73); PLATELET COUNT 348 x10^3/uL (140-400); RED CELL DISTRIBUTION WIDTH 15.7 % (11.5-14.5); WHITE BLOOD COUNT 8.3 x10^3/uL (4.0-11.0)
[2018-10-16 19:24] LABS: ALBUMIN 3.5 g/dL (3.4-5.0); CALCIUM 9.4 mg/dL (8.5-10.1); CREATININE 0.9 mg/dL (0.6-1.0); GFR 61.5; POTASSIUM 3.7 mmol/L (3.5-5.1); TOTAL BILIRUBIN 0.2 mg/dL (0.2-1.0)
[2018-10-16] MEDS: ATORVASTATIN CALCIUM 40 MG TABLET. PO SCH (19:56)
[2018-10-16] MEDS: INSULIN GLARGINE 300 UNITS/3 ML INSULN.PEN. SQ SCH (21:00)
[2018-10-16] MEDS: PATCH REMOVAL. MC SCH (21:00)
[2018-10-16 23:00] VITALS: BP 114/69
[2018-10-17] VITALS (13 sets, daily range): BP systolic 108–166; BP diastolic 54–82
[2018-10-17] MEDS: oxyCODONE/APAP 10/325 1 TAB TABLET PO PRN ×6 (00:08→21:05)
[2018-10-17] MEDS: oxyCODONE IR 5 MG TABLET PO PRN ×5 (02:35→18:53)
[2018-10-17] MEDS: LEVOTHYROXINE 75 MCG TABLET PO SCH (05:53)
[2018-10-17] MEDS: METOCLOPRAMIDE ORAL SOLN 10 MG/10 ML SOLUTION. PO SCH ×4 (05:53→20:52)
[2018-10-17] MEDS: INSULIN LISPRO 300 UNITS/3 ML INSULN.PEN. SQ SCH ×3 (07:30→17:10)
[2018-10-17] MEDS: ASPIRIN ENTERIC COATED 81 MG TABLET.DR. PO SCH (08:00)
[2018-10-17] MEDS: METOPROLOL SUCC 24HR ER 50 MG TAB.ER.24H. PO SCH (08:54)
[2018-10-17] MEDS: levETIRAcetam 500 MG TABLET PO SCH ×2 (08:54→20:52)
[2018-10-17] MEDS: LORazepam 1 MG TABLET PO PRN ×4 (08:56→22:32)
[2018-10-17] MEDS: PIOGLITAZONE 15 MG TABLET. PO SCH (08:59)
[2018-10-17] MEDS: MULTIVITAMIN with MINERAL TABLET. PO SCH (09:00)
[2018-10-17] MEDS: ISOSORBIDE MONONITRATE ER 30 MG TAB.ER.24H PO SCH (09:00)
[2018-10-17] MEDS: LIDOCAINE (700MG/PATCH) PATCH. TD SCH (09:00)
[2018-10-17] MEDS: LOSARTAN POTASSIUM 50 MG TABLET. PO SCH (09:00)
--- NOTE | 2018-10-17 10:03 | NUR ---
SW following. Discussed with RN, possibly surgery today. RN advised no SW needs. SW will continue to follow.
--- NOTE | 2018-10-17 10:41 | PDOC ---
PROGRESS NOTES Subjective Subjective has back pain. bone scan shows uptake at T6 vertebrae consistent with acute fracture and will have kyphoplasty today. blood sugar 170. Objective Objective Vital Signs Date Time Temp Pulse Resp B/P (MAP) Pulse Ox O2 Delivery O2 Flow Rate FiO2 10/17/18 09:58 96 Room Air 10/17/18 09:00 73 166/67 10/17/18 07:00 97.8 16 97.8 Intake and Output 10/17/18 07:00 # Voids 9 Physical Exam Abdomen: Soft Heart: Regular rate, Normal S1, Normal S2 Extremities: No edema General: Alert HEENT: Atraumatic Lungs: Clear to auscultation Neuro: Normal speech Psych/Mental Status: Mental status NL Skin: No rashes Assessment Assessment Problems. Acute T6 vertebral compression fracture 2. Recent L1 kyphoplasty for a lumbar vertebral compression fracture. 3. Suspected osteoporosis. 4. Coronary artery disease. 5. Diabetes mellitus type 2. 6. Hypertension. 7. Hyperlipidemia. 8. Diabetic gastroparesis. 9. Diabetic peripheral neuropathy. Medical Problems: (1) Thoracic compression fracture Status: Acute Plan Plan of Care T6 kyphoplasty today analgesics out patient bone density anticipate dismissal tomorrow Comment Review of Relevant I have reviewed the following items maldonado (where applicable) has been applied. Labs Laboratory Tests Test 10/15/18 11:29 10/15/18 16:28 10/15/18 20:29 10/15/18 20:31 Glucose (Fingerstick) 91 mg/dL (70-99) 213 mg/dL (70-99) 61 mg/dL (70-99) 64 mg/dL (70-99) Test 10/15/18 21:29 10/16/18 07:51 10/16/18 11:22 10/16/18 16:20 Glucose (Fingerstick) 124 mg/dL (70-99) 185 mg/dL (70-99) 75 mg/dL (70-99) Sodium Level 139 mmol/L (136-145) Potassium Level 3.7 mmol/L (3.5-5.1) Chloride Level 101 mmol/L (98-107) Carbon Dioxide Level 26 mmol/L (21-32) Anion Gap 12 (6-14) Blood Urea Nitrogen 16 mg/dL (7-20) Creatinine 0.9 mg/dL (0.6-1.0) Estimated GFR (Cockcroft-Gault) 61.5 BUN/Creatinine Ratio 18 (6-20) Glucose Level 226 mg/dL (70-99) Calcium Level 9.4 mg/dL (8.5-10.1) Total Bilirubin 0.2 mg/dL (0.2-1.0) Aspartate Amino Transf (AST/SGOT) 20 U/L (15-37) Alanine Aminotransferase (ALT/SGPT) 24 U/L (14-59) Alkaline Phosphatase 139 U/L (46-116) Total Protein 7.0 g/dL (6.4-8.2) Albumin 3.5 g/dL (3.4-5.0) Albumin/Globulin Ratio 1.0 (1.0-1.7) Test 10/16/18 16:25 10/16/18 17:01 10/16/18 20:27 10/17/18 07:27 White Blood Count 8.3 x10^3/uL (4.0-11.0) Red Blood Count 4.20 x10^6/uL (3.50-5.40) Hemoglobin 12.6 g/dL (12.0-15.5) Hematocrit 38.8 % (36.0-47.0) Mean Corpuscular Volume 92 fL (79-100) Mean Corpuscular Hemoglobin 30 pg (25-35) Mean Corpuscular Hemoglobin Concent 33 g/dL (31-37) Red Cell Distribution Width 15.7 % (11.5-14.5) Platelet Count 348 x10^3/uL (140-400) Neutrophils (%) (Auto) 69 % (31-73) Lymphocytes (%) (Auto) 22 % (24-48) Monocytes (%) (Auto) 7 % (0-9) Eosinophils (%) (Auto) 1 % (0-3) Basophils (%) (Auto) 1 % (0-3) Neutrophils # (Auto) 5.7 x10^3uL (1.8-7.7) Lymphocytes # (Auto) 1.8 x10^3/uL (1.0-4.8) Monocytes # (Auto) 0.6 x10^3/uL (0.0-1.1) Eosinophils # (Auto) 0.1 x10^3/uL (0.0-0.7) Basophils # (Auto) 0.1 x10^3/uL (0.0-0.2) Prothrombin Time 12.2 SEC (11.7-14.0) Prothromb Time International Ratio 0.9 (0.8-1.1) Activated Partial Thromboplast Time 29 SEC (24-38) Glucose (Fingerstick) 242 mg/dL (70-99) 100 mg/dL (70-99) 170 mg/dL (70-99) Laboratory Tests Test 10/16/18 11:22 10/16/18 16:20 10/16/18 16:25 10/16/18 17:01 Glucose (Fingerstick) 75 mg/dL (70-99) 242 mg/dL (70-99) Sodium Level 139 mmol/L (136-145) Potassium Level 3.7 mmol/L (3.5-5.1) Chloride Level 101 mmol/L (98-107) Carbon Dioxide Level 26 mmol/L (21-32) Anion Gap 12 (6-14) Blood Urea Nitrogen 16 mg/dL (7-20) Creatinine 0.9 mg/dL (0.6-1.0) Estimated GFR (Cockcroft-Gault) 61.5 BUN/Creatinine Ratio 18 (6-20) Glucose Level 226 mg/dL (70-99) Calcium Level 9.4 mg/dL (8.5-10.1) Total Bilirubin 0.2 mg/dL (0.2-1.0) Aspartate Amino Transf (AST/SGOT) 20 U/L (15-37) Alanine Aminotransferase (ALT/SGPT) 24 U/L (14-59) Alkaline Phosphatase 139 U/L (46-116) Total Protein 7.0 g/dL (6.4-8.2) Albumin 3.5 g/dL (3.4-5.0) Albumin/Globulin Ratio 1.0 (1.0-1.7) White Blood Count 8.3 x10^3/uL (4.0-11.0) Red Blood Count 4.20 x10^6/uL (3.50-5.40) Hemoglobin 12.6 g/dL (12.0-15.5) Hematocrit 38.8 % (36.0-47.0) Mean Corpuscular Volume 92 fL (79-100) Mean Corpuscular Hemoglobin 30 pg (25-35) Mean Corpuscular Hemoglobin Concent 33 g/dL (31-37) Red Cell Distribution Width 15.7 % (11.5-14.5) Platelet Count 348 x10^3/uL (140-400) Neutrophils (%) (Auto) 69 % (31-73) Lymphocytes (%) (Auto) 22 % (24-48) Monocytes (%) (Auto) 7 % (0-9) Eosinophils (%) (Auto) 1 % (0-3) Basophils (%) (Auto) 1 % (0-3) Neutrophils # (Auto) 5.7 x10^3uL (1.8-7.7) Lymphocytes # (Auto) 1.8 x10^3/uL (1.0-4.8) Monocytes # (Auto) 0.6 x10^3/uL (0.0-1.1) Eosinophils # (Auto) 0.1 x10^3/uL (0.0-0.7) Basophils # (Auto) 0.1 x10^3/uL (0.0-0.2) Prothrombin Time 12.2 SEC (11.7-14.0) Prothromb Time International Ratio 0.9 (0.8-1.1) Activated Partial Thromboplast Time 29 SEC (24-38) Test 10/16/18 20:27 10/17/18 07:27 Glucose (Fingerstick) 100 mg/dL (70-99) 170 mg/dL (70-99) Microbiology 10/14/18 Urine Culture - Final, Complete 10/14/18 Urine Culture Result 1 (JUDY) - Final, Complete Medications Current Medications Lidocaine (Lidoderm) 1 patch 1X ONCE TD Last administered on 10/14/18 15:33; Start 10/14/18 at 14:45; Stop 10/14/18 at 14:46; Status DC Fentanyl (Duragesic 25mcg/ Hr Patch) 1 patch 1X ONCE TD Last administered on at 15:41; Start 10/14/18 at 16:00; Stop 10/14/18 at 16:01; Status DC Ketorolac Tromethamine (Toradol Im) 30 mg 1X ONCE IM Last administered on 15:36; Start 10/14/18 at 16:00; Stop 10/14/18 at 16:01; Status DC Oxycodone/ Acetaminophen (Percocet 10/325) 1 tab 1X ONCE PO Last administered on 10/14/18 17:35; Start 10/14/18 at 17:30; Stop 10/14/18 at 18:13; Status DC Pioglitazone HCl (Actos) 45 mg DAILY PO Last administered on 10/16/18 09:34; Start 10/15/18 at 09:00 Amlodipine Besylate (Norvasc) 10 mg DAILY PO Last administered on 10/15/18 08: 38; Start 10/15/18 at 09:00; Stop 10/15/18 at 10:41; Status DC Aspirin (Ecotrin) 81 mg DAILYWBKFT PO Last administered on 10/16/18 07:57; Start 10/15/18 at 08:00 Atorvastatin Calcium (Lipitor) 40 mg QHS PO Last administered on 10/16/18 19:56 ; Start 10/14/18 at 21:00 Fentanyl (Duragesic 25mcg/ Hr Patch) 1 patch 1X ONCE TD ; Start 10/14/18 at 18: 00; Stop 10/14/18 at 18:44; Status DC Isosorbide Mononitrate (Imdur) 60 mg DAILY PO ; Start 10/15/18 at 09:00; Stop 10/15/18 at 10:41; Status DC Levetiracetam (Keppra) 1,000 mg BID PO Last administered on 10/17/18 08:54; Start 10/14/18 at 21:00 Insulin Glargine (Lantus) 18 units QHS SQ Last administered on 10/14/18 21:59; Start 10/14/18 at 21:00; Stop 10/16/18 at 12:50; Status DC Levothyroxine Sodium (Synthroid) 75 mcg DAILY06 PO Last administered on 05:53; Start 10/15/18 at 06:00 Lorazepam (Ativan) 1 mg PRN TID PRN PO ANXIETY / AGITATION Last administered on 10/17/18 08:56; Start 10/14/18 at 18:00 Losartan Potassium (Cozaar) 100 mg DAILY PO ; Start 10/15/18 at 09:00; Stop at 10:41; Status DC Metoclopramide HCl (Reglan Oral Solution) 10 mg TIDACHC PO Last administered on 10/16/18 19:56; Start 10/14/18 at 21:00 Metoprolol Succinate (Toprol Xl) 50 mg DAILY PO Last administered on 10/17/18 08:54; Start 10/15/18 at 09:00 Nitroglycerin (Nitrostat) 0.4 mg PRN Q5MIN PRN SL CHEST PAIN; Start 10/14/18 at 18:00 Multivitamins (Thera M Plus) 1 tab DAILY PO Last administered on 10/16/18 09:34 ; Start 10/15/18 at 09:00 Insulin Human Lispro (HumaLOG) 12 units TIDAC SQ Last administered on 10/16/18 07:58; Start 10/15/18 at 07:30; Stop 10/16/18 at 12:50; Status DC Oxycodone HCl (Roxicodone) 10 mg PRN Q4HRS PRN PO SEVERE PAIN Last administered on 10/17/18 06:38; Start 10/14/18 at 18:00 Acetaminophen (Tylenol) 650 mg PRN Q4HRS PRN PO MILD PAIN / TEMP Last administered on 10/16/18 05:54; Start 10/14/18 at 18:00 Magnesium Hydroxide (Milk Of Magnesia) 2,400 mg PRN DAILY PRN PO CONSTIPATION; Start 10/14/18 at 18:00 Lidocaine (Lidoderm) 1 patch DAILY TD Last administered on 10/17/18 09:00; Start 10/15/18 at 09:00 Oxycodone/ Acetaminophen (Percocet 10/325) 1 tab PRN Q4HRS PRN PO MODERATE PAIN Last administered on 10/17/18 08:52; Start 10/14/18 at 18:15 Potassium Chloride (Klor-Con) 20 meq 1X ONCE PO Last administered on 10/14/18 19:00; Start 10/14/18 at 19:00; Stop 10/14/18 at 19:01; Status DC Miscellaneous (Lidoderm Patch Removal) 1 ea QHS MC Last administered on 21:00; Start 10/14/18 at 21:00 Isosorbide Mononitrate (Imdur) 30 mg DAILY PO ; Start 10/16/18 at 09:00 Losartan Potassium (Cozaar) 50 mg DAILY PO Last administered on 10/16/18at 09:36 ; Start 10/16/18 at 09:00 Insulin Glargine (Lantus) 14 units QHS SQ ; Start 10/16/18 at 21:00 Insulin Human Lispro (HumaLOG) 8 units TIDAC SQ Last administered on 10/16/18at 17:14; Start 10/16/18 at 16:30 Fentanyl (Duragesic 25mcg/ Hr Patch) 1 patch 1X ONCE TD ; Start 10/17/18 at 11: 00; Stop 10/17/18 at 11:01 Active Scripts Active Oxycodone Hcl Immed.release (Oxycodone Hcl) 10 Mg Tablet 10 Mg PO PRN Q6HRS PRN Thera-M Tablet (Multivits,Ca,Minerals/Iron/Fa) 1 Each Tablet 1 Tab PO DAILY 30 Days Vitamin B-12 (Cyanocobalamin (Vitamin B-12)) 1,000 Mcg Tablet 1,000 Mcg PO DAILY 30 Days Synthroid (Levothyroxine Sodium) 75 Mcg Tablet 75 Mcg PO DAILY07 30 Days Humalog (Insulin Lispro) 100 Unit/1 Ml Insuln.pen 12 Units SQ TIDWMEALS 30 Days Lantus Solostar (Insulin Glargine,Hum.rec.anlog) 100 Unit/1 Ml Insuln.pen 12 Units SQ QHS 30 Days Metoprolol Succinate 50 Mg Tab.er.24h 50 Mg PO DAILY 30 Days Dicyclomine Hcl 10 Mg Capsule 10 Mg PO PRN Q6HRS PRN 30 Days Vitamin B-12 (Cyanocobalamin (Vitamin B-12)) 1,000 Mcg Tablet 1,000 Mcg PO DAILY 30 Days Metoclopramide Hcl 10 Mg/10 Ml Solution 10 Mg PO TIDACHC 30 Days Aspirin 325 Mg Tablet 81 Mg PO DAILYWBKFT 30 Days Cozaar (Losartan Potassium) 50 Mg Tablet 100 Mg PO DAILY 30 Days Amlodipine Besylate 5 Mg Tablet 5 Mg PO DAILY 30 Days Nitrostat (Nitroglycerin) 0.4 Mg Tab.subl 0.4 Mg SL PRN Q5MIN PRN 30 Days Isosorbide Mononitrate Er (Isosorbide Mononitrate) 30 Mg Tab.er.24h 60 Mg PO DAILY 30 Days Atorvastatin Calcium 40 Mg Tablet 40 Mg PO QHS 30 Days Ranexa (Ranolazine) 500 Mg Tab.er.12h 1,000 Mg PO BID 30 Days Keppra (Levetiracetam) 500 Mg Tablet 1,000 Mg PO BID 30 Days [Pioglitazone Hcl] 15 MG Tablet 45 Mg PO DAILY Lorazepam 1 Mg Tablet 1 Mg PO PRN TID PRN Pantoprazole Sodium 40 Mg Tablet.dr 40 Mg PO BIDAC Ondansetron Odt (Ondansetron) 4 Mg Tab.rapdis 4 Mg PO TIDAC FENTANYL 25mcg/hr (Fentanyl) 1 Each Patch.td72 1 Patch TD Q3DAYS Reported Ambien (Zolpidem Tartrate) 5 Mg Tablet 5 Mg PO HS Clopidogrel (Clopidogrel Bisulfate) 75 Mg Tablet 75 Mg PO DAILY Vitals/I & O Vital Sign - Last 24 Hours 10/16/18 10/16/18 10/16/18 10/16/18 11:00 12:35 13:35 15:00 Temp 97.9 98.1 97.9 98.1 Pulse 77 73 Resp 16 16 16 18 B/P (MAP) 138/76 (96) 130/62 (84) Pulse Ox 98 96 O2 Delivery Room Air Room Air Room Air 10/16/18 10/16/18 10/16/18 10/16/18 15:16 16:16 17:10 19:00 Temp 98.2 98.2 Pulse 75 Resp 16 16 16 18 B/P (MAP) 106/52 (70) Pulse Ox 96 O2 Delivery Room Air Room Air Room Air 10/16/18 10/16/18 10/16/18 10/16/18 19:56 20:00 22:10 23:00 Temp 97.9 97.9 Pulse 71 Resp 18 B/P (MAP) 114/69 (84) Pulse Ox 96 96 94 O2 Delivery Room Air Room Air Room Air Room Air 10/17/18 10/17/18 10/17/18 10/17/18 00:08 02:35 02:59 04:13 Temp 97.7 97.7 Pulse 72 Resp 18 B/P (MAP) 108/54 (72) Pulse Ox 96 96 95 95 O2 Delivery Room Air Room Air Room Air Room Air 10/17/18 10/17/18 10/17/18 10/17/18 06:38 07:00 07:45 08:52 Temp 97.8 97.8 Pulse 73 Resp 16 B/P (MAP) 166/67 (100) Pulse Ox 95 96 96 96 O2 Delivery Room Air Room Air Room Air Room Air 10/17/18 10/17/18 10/17/18 08:54 09:00 09:58 Pulse 73 73 B/P (MAP) 166/67 166/67 Pulse Ox 96 O2 Delivery Room Air DENICE IZAGUIRRE MD Oct 17, 2018 10:41
[2018-10-17] MEDS ORDERED: LIDOCAINE WITH 8.4% SOD BICARB 3 ML DISP.SYRIN. ONE (10:53)
[2018-10-17] MEDS ORDERED: fentaNYL 25MCG/HR PATCH 1 PATCH PATCH.TD72 TD ONE (11:00)
[2018-10-17] MEDS ORDERED: LIDOCAINE WITH 8.4% SOD BICARB 3 ML DISP.SYRIN. IJ ONE (11:00)
[2018-10-17] MEDS ORDERED: fentaNYL PF VIAL 100 MCG/2 ML VIAL IV ONE (11:00)
[2018-10-17] MEDS ORDERED: MIDAZOLAM HCL/PF 2 MG/2 ML VIAL. IV ONE (11:00)
[2018-10-17] MEDS ORDERED: fentaNYL PF VIAL 100 MCG/2 ML VIAL ONE (11:08)
[2018-10-17] MEDS ORDERED: MIDAZOLAM HCL/PF 2 MG/2 ML VIAL. ONE (11:08)
--- NOTE | 2018-10-17 14:24 | RAD ---
T6 vertebroplasty 10/17/2018 Indication:T6 compression fracture, probably subacute. Persistent severe mid back pain, which limits activities of daily living. Fractures likely pathologic secondary to bone demineralization. Fluoroscopy time: 15.2 MIN Dose area product: 2956.6 uGym2 Moderate sedation: The patient was appropriately monitored by a qualified independent observer throughout the course of the moderate sedation. [id number] sedation time:45 minutes Consent: The risks and benefits of the procedure were discussed with the patient. Informed consent was obtained. The patient was brought to the fluoroscopy suite and placed in the prone position. A timeout procedure was performed. Preprocedural antibiotics were administered. Procedure: The overlying skin was prepped and draped in the usual sterile fashion. All elements of maximal sterile barrier technique including the use of a cap, mask, sterile gown, sterile gloves, large sterile sheet, appropriate hand hygiene, and 2% chlorhexidine for cutaneous antisepsis (or acceptable alternative antiseptic per current guidelines) were followed for this procedure. Using a left transpedicular approach, and direct fluoroscopic guidance, a trocar needle was advanced to the posterior third of the targeted vertebral body. A curved cement delivery needle was advanced into the contralateral vertebral body. Contrast opacified polymethylmethacrylate was then very slowly and carefully introduced through the vertebral augmentation needle, using strict fluoroscopic control. Once bone cement reached the posterior third of the targeted vertebral body and relatively adequate filling had been achieved, the needles were removed and manual pressure was held. No significant extravasation or complication was identified. Sterile dressing was applied. Patient tolerated the procedure well, without apparent complication. Impression: Fluoroscopically guided T6 vertebroplasty
[2018-10-17] MEDS: ATORVASTATIN CALCIUM 40 MG TABLET. PO SCH (20:51)
[2018-10-17] MEDS: INSULIN GLARGINE 300 UNITS/3 ML INSULN.PEN. SQ SCH (20:54)
[2018-10-17] MEDS: PATCH REMOVAL. MC SCH (21:00)
[2018-10-18 03:00] VITALS: BP 125/60
[2018-10-18] MEDS: oxyCODONE/APAP 10/325 1 TAB TABLET PO PRN ×2 (03:55→08:09)
[2018-10-18] MEDS: LEVOTHYROXINE 75 MCG TABLET PO SCH (06:06)
[2018-10-18] MEDS: oxyCODONE IR 5 MG TABLET PO PRN ×2 (06:06→10:15)
[2018-10-18 07:00] VITALS: BP 169/83
[2018-10-18] MEDS: METOCLOPRAMIDE ORAL SOLN 10 MG/10 ML SOLUTION. PO SCH ×2 (08:07→11:30)
[2018-10-18] MEDS: LORazepam 1 MG TABLET PO PRN (08:07)
[2018-10-18] MEDS: levETIRAcetam 500 MG TABLET PO SCH (08:08)
[2018-10-18] MEDS: ASPIRIN ENTERIC COATED 81 MG TABLET.DR. PO SCH (08:08)
[2018-10-18] MEDS: METOPROLOL SUCC 24HR ER 50 MG TAB.ER.24H. PO SCH (08:09)
[2018-10-18] MEDS: PIOGLITAZONE 15 MG TABLET. PO SCH (08:10)
[2018-10-18] MEDS: LOSARTAN POTASSIUM 50 MG TABLET. PO SCH (08:10)
[2018-10-18] MEDS: MULTIVITAMIN with MINERAL TABLET. PO SCH (08:10)
[2018-10-18 08:11] VITALS: BP 125/60
[2018-10-18] MEDS: ISOSORBIDE MONONITRATE ER 30 MG TAB.ER.24H PO SCH (08:11)
[2018-10-18] MEDS: LIDOCAINE (700MG/PATCH) PATCH. TD SCH (08:12)
[2018-10-18] MEDS: INSULIN LISPRO 300 UNITS/3 ML INSULN.PEN. SQ SCH (08:24)
--- NOTE | 2018-10-18 10:20 | PDOC ---
PROGRESS NOTES Subjective Subjective had a T6 vertebroplasty yesterday. has some back pain. noted to move around in room. bp okay. blood sugars reviewed. Objective Objective Vital Signs Date Time Temp Pulse Resp B/P (MAP) Pulse Ox O2 Delivery O2 Flow Rate FiO2 10/18/18 10:15 20 Room Air 10/18/18 08:11 71 125/60 10/18/18 08:00 2.0 10/18/18 07:00 98.4 99 98.4 Intake and Output 10/18/18 07:00 Intake Total 640 ml Balance 640 ml Intake Oral 640 ml # Voids 3 Physical Exam Abdomen: Soft Heart: Regular rate, Normal S1, Normal S2 Extremities: No edema General: Alert HEENT: Atraumatic Lungs: Clear to auscultation Neuro: Normal speech Psych/Mental Status: Mental status NL Skin: No rashes Assessment Assessment Problems Acute T6 vertebral compression fracture treated with vertebroplasty 2. Recent L1 kyphoplasty for a lumbar vertebral compression fracture. 3. Suspected osteoporosis. 4. Coronary artery disease. 5. Diabetes mellitus type 2. 6. Hypertension. 7. Hyperlipidemia. 8. Diabetic gastroparesis. 9. Diabetic peripheral neuropathy. Medical Problems: (1) Thoracic compression fracture Status: Acute Plan Plan of Care change oxycodone to 10 mg tid prn continue fentanyl patch dismiss today Comment Review of Relevant I have reviewed the following items maldonado (where applicable) has been applied. Labs Laboratory Tests Test 10/16/18 11:22 10/16/18 16:20 10/16/18 16:25 10/16/18 17:01 Glucose (Fingerstick) 75 mg/dL (70-99) 242 mg/dL (70-99) Sodium Level 139 mmol/L (136-145) Potassium Level 3.7 mmol/L (3.5-5.1) Chloride Level 101 mmol/L (98-107) Carbon Dioxide Level 26 mmol/L (21-32) Anion Gap 12 (6-14) Blood Urea Nitrogen 16 mg/dL (7-20) Creatinine 0.9 mg/dL (0.6-1.0) Estimated GFR (Cockcroft-Gault) 61.5 BUN/Creatinine Ratio 18 (6-20) Glucose Level 226 mg/dL (70-99) Calcium Level 9.4 mg/dL (8.5-10.1) Total Bilirubin 0.2 mg/dL (0.2-1.0) Aspartate Amino Transf (AST/SGOT) 20 U/L (15-37) Alanine Aminotransferase (ALT/SGPT) 24 U/L (14-59) Alkaline Phosphatase 139 U/L (46-116) Total Protein 7.0 g/dL (6.4-8.2) Albumin 3.5 g/dL (3.4-5.0) Albumin/Globulin Ratio 1.0 (1.0-1.7) White Blood Count 8.3 x10^3/uL (4.0-11.0) Red Blood Count 4.20 x10^6/uL (3.50-5.40) Hemoglobin 12.6 g/dL (12.0-15.5) Hematocrit 38.8 % (36.0-47.0) Mean Corpuscular Volume 92 fL (79-100) Mean Corpuscular Hemoglobin 30 pg (25-35) Mean Corpuscular Hemoglobin Concent 33 g/dL (31-37) Red Cell Distribution Width 15.7 % (11.5-14.5) Platelet Count 348 x10^3/uL (140-400) Neutrophils (%) (Auto) 69 % (31-73) Lymphocytes (%) (Auto) 22 % (24-48) Monocytes (%) (Auto) 7 % (0-9) Eosinophils (%) (Auto) 1 % (0-3) Basophils (%) (Auto) 1 % (0-3) Neutrophils # (Auto) 5.7 x10^3uL (1.8-7.7) Lymphocytes # (Auto) 1.8 x10^3/uL (1.0-4.8) Monocytes # (Auto) 0.6 x10^3/uL (0.0-1.1) Eosinophils # (Auto) 0.1 x10^3/uL (0.0-0.7) Basophils # (Auto) 0.1 x10^3/uL (0.0-0.2) Prothrombin Time 12.2 SEC (11.7-14.0) Prothromb Time International Ratio 0.9 (0.8-1.1) Activated Partial Thromboplast Time 29 SEC (24-38) Test 10/16/18 20:27 10/17/18 07:27 10/17/18 16:33 10/17/18 20:01 Glucose (Fingerstick) 100 mg/dL (70-99) 170 mg/dL (70-99) 256 mg/dL (70-99) 145 mg/dL (70-99) Test 10/18/18 07:47 Glucose (Fingerstick) 210 mg/dL (70-99) Laboratory Tests Test 10/17/18 16:33 10/17/18 20:01 10/18/18 07:47 Glucose (Fingerstick) 256 mg/dL (70-99) 145 mg/dL (70-99) 210 mg/dL (70-99) Microbiology 10/14/18 Urine Culture - Final, Complete 10/14/18 Urine Culture Result 1 (JUDY) - Final, Complete Medications Current Medications Lidocaine (Lidoderm) 1 patch 1X ONCE TD Last administered on 10/14/18at 15:33; Start 10/14/18 at 14:45; Stop 10/14/18 at 14:46; Status DC Fentanyl (Duragesic 25mcg/ Hr Patch) 1 patch 1X ONCE TD Last administered on at 15:41; Start 10/14/18 at 16:00; Stop 10/14/18 at 16:01; Status DC Ketorolac Tromethamine (Toradol Im) 30 mg 1X ONCE IM Last administered on at 15:36; Start 10/14/18 at 16:00; Stop 10/14/18 at 16:01; Status DC Oxycodone/ Acetaminophen (Percocet 10/325) 1 tab 1X ONCE PO Last administered on 10/14/18at 17:35; Start 10/14/18 at 17:30; Stop 10/14/18 at 18:13; Status DC Pioglitazone HCl (Actos) 45 mg DAILY PO Last administered on 10/18/18at 08:10; Start 10/15/18 at 09:00 Amlodipine Besylate (Norvasc) 10 mg DAILY PO Last administered on 10/15/18at 08: 38; Start 10/15/18 at 09:00; Stop 10/15/18 at 10:41; Status DC Aspirin (Ecotrin) 81 mg DAILYWBKFT PO Last administered on 10/18/18at 08:08; Start 10/15/18 at 08:00 Atorvastatin Calcium (Lipitor) 40 mg QHS PO Last administered on 10/17/18 20:51 ; Start 10/14/18 at 21:00 Fentanyl (Duragesic 25mcg/ Hr Patch) 1 patch 1X ONCE TD ; Start 10/14/18 at 18: 00; Stop 10/14/18 at 18:44; Status DC Isosorbide Mononitrate (Imdur) 60 mg DAILY PO ; Start 10/15/18 at 09:00; Stop 10/15/18 at 10:41; Status DC Levetiracetam (Keppra) 1,000 mg BID PO Last administered on 10/18/18 08:08; Start 10/14/18 at 21:00 Insulin Glargine (Lantus) 18 units QHS SQ Last administered on 10/14/18 21:59; Start 10/14/18 at 21:00; Stop 10/16/18 at 12:50; Status DC Levothyroxine Sodium (Synthroid) 75 mcg DAILY06 PO Last administered on 06:06; Start 10/15/18 at 06:00 Lorazepam (Ativan) 1 mg PRN TID PRN PO ANXIETY / AGITATION Last administered on 10/18/18 08:07; Start 10/14/18 at 18:00 Losartan Potassium (Cozaar) 100 mg DAILY PO ; Start 10/15/18 at 09:00; Stop at 10:41; Status DC Metoclopramide HCl (Reglan Oral Solution) 10 mg TIDACHC PO Last administered on 10/18/18 08:07; Start 10/14/18 at 21:00 Metoprolol Succinate (Toprol Xl) 50 mg DAILY PO Last administered on 10/18/18 08:09; Start 10/15/18 at 09:00 Nitroglycerin (Nitrostat) 0.4 mg PRN Q5MIN PRN SL CHEST PAIN; Start 10/14/18 at 18:00 Multivitamins (Thera M Plus) 1 tab DAILY PO Last administered on 10/18/18 08:10 ; Start 10/15/18 at 09:00 Insulin Human Lispro (HumaLOG) 12 units TIDAC SQ Last administered on 10/16/18 07:58; Start 10/15/18 at 07:30; Stop 10/16/18 at 12:50; Status DC Oxycodone HCl (Roxicodone) 10 mg PRN Q4HRS PRN PO SEVERE PAIN Last administered on 10/18/18 10:15; Start 10/14/18 at 18:00 Acetaminophen (Tylenol) 650 mg PRN Q4HRS PRN PO MILD PAIN / TEMP Last administered on 10/16/18 05:54; Start 10/14/18 at 18:00 Magnesium Hydroxide (Milk Of Magnesia) 2,400 mg PRN DAILY PRN PO CONSTIPATION; Start 10/14/18 at 18:00 Lidocaine (Lidoderm) 1 patch DAILY TD Last administered on 10/18/18 08:12; Start 10/15/18 at 09:00 Oxycodone/ Acetaminophen (Percocet 10/325) 1 tab PRN Q4HRS PRN PO MODERATE PAIN Last administered on 10/18/18 08:09; Start 10/14/18 at 18:15 Potassium Chloride (Klor-Con) 20 meq 1X ONCE PO Last administered on 10/14/18 19:00; Start 10/14/18 at 19:00; Stop 10/14/18 at 19:01; Status DC Miscellaneous (Lidoderm Patch Removal) 1 ea QHS MC Last administered on 21:00; Start 10/14/18 at 21:00 Isosorbide Mononitrate (Imdur) 30 mg DAILY PO Last administered on 10/18/18 08: 11; Start 10/16/18 at 09:00 Losartan Potassium (Cozaar) 50 mg DAILY PO Last administered on 10/18/18 08:10 ; Start 10/16/18 at 09:00 Insulin Glargine (Lantus) 14 units QHS SQ Last administered on 10/17/18 20:54; Start 10/16/18 at 21:00 Insulin Human Lispro (HumaLOG) 8 units TIDAC SQ Last administered on 10/18/18 08:24; Start 10/16/18 at 16:30 Fentanyl (Duragesic 25mcg/ Hr Patch) 1 patch 1X ONCE TD Last administered on 10:44; Start 10/17/18 at 11:00; Stop 10/17/18 at 11:01; Status DC Lidocaine/Sodium Bicarbonate (Buffered Lidocaine 1%) 3 ml STK-MED ONCE .ROUTE ; Start 10/17/18 at 10:53; Stop 10/17/18 at 10:54; Status DC Lidocaine/Sodium Bicarbonate (Buffered Lidocaine 1%) 3 ml 1X ONCE IJ Last administered on 10/17/18at 11:35; Start 10/17/18 at 11:00; Stop 10/17/18 at 11:07; Status DC Midazolam HCl (Versed) 2 mg 1X ONCE IV Last administered on 10/17/18at 11:33; Start 10/17/18 at 11:00; Stop 10/17/18 at 11:07; Status DC Fentanyl Citrate (Fentanyl 2ml Vial) 100 mcg 1X ONCE IV Last administered on at 11:33; Start 10/17/18 at 11:00; Stop 10/17/18 at 11:07; Status DC Cefazolin Sodium/ Dextrose 50 ml @ 100 mls/hr 1X ONCE IV Last administered on 10/17/18at 11:30; Start 10/17/18 at 11:30; Stop 10/17/18 at 11:59; Status DC Midazolam HCl (Versed) 2 mg STK-MED ONCE .ROUTE ; Start 10/17/18 at 11:08; Stop 10/17/18 at 11:10; Status DC Fentanyl Citrate (Fentanyl 2ml Vial) 100 mcg STK-MED ONCE .ROUTE ; Start at 11:08; Stop 10/17/18 at 11:10; Status DC Cefazolin Sodium/ Dextrose 50 ml @ As Directed STK-MED ONCE IV ; Start 10/17/18 at 11:08; Stop 10/17/18 at 11:10; Status DC Active Scripts Active Oxycodone Hcl Immed.release (Oxycodone Hcl) 10 Mg Tablet 10 Mg PO PRN Q6HRS PRN Thera-M Tablet (Multivits,Ca,Minerals/Iron/Fa) 1 Each Tablet 1 Tab PO DAILY 30 Days Vitamin B-12 (Cyanocobalamin (Vitamin B-12)) 1,000 Mcg Tablet 1,000 Mcg PO DAILY 30 Days Synthroid (Levothyroxine Sodium) 75 Mcg Tablet 75 Mcg PO DAILY07 30 Days Humalog (Insulin Lispro) 100 Unit/1 Ml Insuln.pen 12 Units SQ TIDWMEALS 30 Days Lantus Solostar (Insulin Glargine,Hum.rec.anlog) 100 Unit/1 Ml Insuln.pen 12 Units SQ QHS 30 Days Metoprolol Succinate 50 Mg Tab.er.24h 50 Mg PO DAILY 30 Days Dicyclomine Hcl 10 Mg Capsule 10 Mg PO PRN Q6HRS PRN 30 Days Vitamin B-12 (Cyanocobalamin (Vitamin B-12)) 1,000 Mcg Tablet 1,000 Mcg PO DAILY 30 Days Metoclopramide Hcl 10 Mg/10 Ml Solution 10 Mg PO TIDACHC 30 Days Aspirin 325 Mg Tablet 81 Mg PO DAILYWBKFT 30 Days Cozaar (Losartan Potassium) 50 Mg Tablet 100 Mg PO DAILY 30 Days Amlodipine Besylate 5 Mg Tablet 5 Mg PO DAILY 30 Days Nitrostat (Nitroglycerin) 0.4 Mg Tab.subl 0.4 Mg SL PRN Q5MIN PRN 30 Days Isosorbide Mononitrate Er (Isosorbide Mononitrate) 30 Mg Tab.er.24h 60 Mg PO DAILY 30 Days Atorvastatin Calcium 40 Mg Tablet 40 Mg PO QHS 30 Days Ranexa (Ranolazine) 500 Mg Tab.er.12h 1,000 Mg PO BID 30 Days Keppra (Levetiracetam) 500 Mg Tablet 1,000 Mg PO BID 30 Days [Pioglitazone Hcl] 15 MG Tablet 45 Mg PO DAILY Lorazepam 1 Mg Tablet 1 Mg PO PRN TID PRN Pantoprazole Sodium 40 Mg Tablet.dr 40 Mg PO BIDAC Ondansetron Odt (Ondansetron) 4 Mg Tab.rapdis 4 Mg PO TIDAC FENTANYL 25mcg/hr (Fentanyl) 1 Each Patch.td72 1 Patch TD Q3DAYS Reported Ambien (Zolpidem Tartrate) 5 Mg Tablet 5 Mg PO HS Clopidogrel (Clopidogrel Bisulfate) 75 Mg Tablet 75 Mg PO DAILY Vitals/I & O Vital Sign - Last 24 Hours 10/17/18 10/17/18 10/17/18 10/17/18 10:44 11:04 11:12 11:33 Temp 97.8 97.8 Pulse 70 Resp 16 16 B/P (MAP) 128/69 (88) Pulse Ox 96 96 98 O2 Delivery Room Air Room Air Room Air 10/17/18 10/17/18 10/17/18 10/17/18 12:20 12:30 12:30 12:45 Pulse 77 84 74 Resp 16 16 16 B/P (MAP) 141/72 (95) 134/67 (89) Pulse Ox 100 98 99 O2 Delivery Nasal Cannula Room Air Room Air Room Air O2 Flow Rate 2.0 10/17/18 10/17/18 10/17/18 10/17/18 13:00 13:02 13:15 13:30 Pulse 86 74 73 Resp 16 16 16 B/P (MAP) 144/69 (94) 143/75 (97) 135/74 (94) Pulse Ox 99 99 93 O2 Delivery Room Air Room Air Room Air Room Air 10/17/18 10/17/18 10/17/18 10/17/18 13:45 14:15 14:42 15:00 Pulse 82 77 Resp 16 16 B/P (MAP) 131/69 (89) 134/68 (90) Pulse Ox 96 97 O2 Delivery Room Air Room Air Room Air Room Air 10/17/18 10/17/18 10/17/18 10/17/18 17:02 18:53 19:00 20:15 Temp 97.4 97.4 Pulse 76 Resp 16 B/P (MAP) 118/68 (85) Pulse Ox 95 O2 Delivery Room Air Room Air Room Air Room Air 10/17/18 10/17/18 10/17/18 10/18/18 21:05 22:05 23:00 03:00 Temp 97.9 98.9 97.9 98.9 Pulse 80 71 Resp 18 16 18 16 B/P (MAP) 126/71 (89) 125/60 (81) Pulse Ox 95 95 93 O2 Delivery Room Air Room Air Room Air 10/18/18 10/18/18 10/18/18 10/18/18 03:55 04:56 06:06 07:00 Resp 18 18 Pulse Ox 93 93 O2 Delivery Room Air Room Air Room Air Room Air 10/18/18 10/18/18 10/18/18 10/18/18 07:00 08:00 08:09 08:09 Temp 98.4 98.4 Pulse 88 71 Resp 18 B/P (MAP) 169/83 (111) 125/60 Pulse Ox 99 O2 Delivery Room Air Room Air Room Air O2 Flow Rate 2.0 10/18/18 10/18/18 10/18/18 08:10 08:11 10:15 Pulse 71 71 Resp 20 B/P (MAP) 125/60 125/60 O2 Delivery Room Air Intake and Output 10/17/18 10/17/18 10/18/18 15:00 23:00 07:00 Intake Total 200 ml 440 ml Balance 200 ml 440 ml DENICE IZAGUIRRE MD Oct 18, 2018 10:20
[2018-10-18] MEDS ORDERED: ATOR40TA59 PO (10:35)
[2018-10-18] MEDS ORDERED: ISOS30TA4 PO (10:35)
[2018-10-18] MEDS ORDERED: INSU100I11 SQ (10:35)
[2018-10-18] MEDS ORDERED: LOSA-73 PO (10:35)
[2018-10-18] MEDS ORDERED: INSU100I13 SQ (10:35)
--- NOTE | 2018-10-18 10:36 | DISCH ---
DISCHARGE INSTRUCTIONS Condition on Discharge Condition on Discharge: Stable Activity After Discharge Activity Instructions for Disc: Activity as tolerated Bathing Instructions: No Tub Bath until see Lifting Instructions after Dis: No heavy lifting Exercise Instruction after Dis: Progress as tolerated Driving Instructions after Dis: Do not drive Weight Bearing Status after Di: As tolerated Diet after Discharge Diet after Discharge: Regular Diet Texture: Regular Liquid Texture: Thin Liquid Swallowing Supervision: None needed Wound Incision Care Wound/Incision Care: No wound care needed Checks after Discharge Checks after discharge: Check blood sugar, ac/hs Contacting the [facility] after DC Call your doctor for: If your condition worsens Follow-Up Follow up with: dr. izaguirre next week Treatment/Equipment after DC Adaptive Equipment Issued: None Comment: back-scapula area DENICE IZAGUIRRE MD Oct 18, 2018 10:36
--- NOTE | 2018-10-18 10:42 | PDOC ---
Provider Note Provider Note discharge summary dictated # [id number] DENICE IZAGUIRRE MD Oct 18, 2018 10:42
[2018-10-18] MEDS ORDERED: INSULIN LISPRO 300 UNITS/3 ML INSULN.PEN. SQ SCH (11:30)
--- NOTE | 2018-10-18 11:55 | NUR ---
1130 discharge teaching completed; IV site discontinued without difficulty, Pt states she understands her home medications, prescriptions and discharge instructions; she states she has all of her personal belongings. She was escorted out by staff via wheelchair. Discharged to home with spouse.
--- NOTE | 2018-10-18 15:20 | DS ---
DATE OF DISCHARGE: 10/18/2018 PROCEDURE: Vertebroplasty of T6 thoracic vertebrae. FINAL DIAGNOSES: 1. T6 vertebroplasty for a T6 thoracic vertebral body compression fracture. 2. Suspected osteoporosis. 3. Recent L1 kyphoplasty for a lumbar vertebral compression fracture. 4. Coronary artery disease. 5. Diabetes mellitus type 2. 6. Hypertension. 7. Hyperlipidemia. 8. Diabetic gastroparesis. 9. Diabetic peripheral neuropathy. HOSPITAL COURSE: The patient is a 72-year-old white female with history of diabetes mellitus type 2 on insulin with peripheral neuropathy, hypertension, hyperlipidemia, coronary artery disease, and recent L1 kyphoplasty done at [facility] for an L1 vertebral compression fracture within the last month who continued to have back pain and sought help at the [facility] Emergency Room on 10/15/2018 where a CAT scan of thoracic spine showed that she had a T4 vertebral compression fracture about 15% height loss and a T6 vertebral compression fracture about 50% height loss. The patient was seen by Dr. Gage in consultation. An MRI could not be done because she has a pain stimulator and she underwent a bone scan, which showed a positive uptake at the T6 vertebral area consistent with an acute vertebral compression fracture involving T6 and then she underwent a vertebroplasty yesterday. Still has some back pain, but she is mobile in the room and she will be dismissed to home. Her amlodipine was discontinued and her losartan was decreased to 50 mg every day. Her Imdur was 30 mg every day. Insulin was slightly adjusted. So she will be dismissed to home on Actos 45 mg every day, aspirin 81 mg every day, atorvastatin 40 mg every day, fentanyl 25 mcg patch every 72 hours, Imdur 30 mg every day, Keppra 1000 mg b.i.d., Lantus insulin 18 units at bedtime, NovoLog 10 units before meals t.i.d., levothyroxine 75 mcg every day, lorazepam 1 mg t.i.d. p.r.n., losartan 50 mg every day, metoclopramide 10 mg before meals t.i.d. and at bedtime, metoprolol succinate 50 mg every day, multiple vitamin every day, nitroglycerin 0.4 mg sublingual p.r.n., and oxycodone 10 mg t.i.d. p.r.n. She will make an appointment to see Dr. Masters in the office next week. DENICE MASTERS MD DR: MIKAL/mandy JOB#: [id number] / [id number]
[2018-10-18] MEDS ORDERED: INSULIN GLARGINE 300 UNITS/3 ML INSULN.PEN. SQ SCH (21:00)
[2018-12-09] MEDS ORDERED: Pantoprazole PO (10:24)
== END 2018-10-18 11:30 | disposition home or self-care (01) | DRG 517 ==
LOC: ER 13:48 → 4 NORTH 17:20
PROVIDERS: ADMIT Internal Medicine; ATTEND Internal Medicine
PROC: 0PU43JZ Supplement Thoracic Vertebra with Synthetic Substitute, Percutaneous Approach (ICD-10-PCS; principal; 2018-10-17)
DX: M80.88XA Other osteoporosis with current pathological fracture, vertebra(e), initial encounter for fracture (principal); E11.43 Type 2 diabetes mellitus with diabetic autonomic (poly)neuropathy; K31.84 Gastroparesis; I10 Essential (primary) hypertension; I25.10 Atherosclerotic heart disease of native coronary artery without angina pectoris; E78.5 Hyperlipidemia, unspecified; E11.42 Type 2 diabetes mellitus with diabetic polyneuropathy; E89.0 Postprocedural hypothyroidism; F31.9 Bipolar disorder, unspecified; G89.29 Other chronic pain; K58.9 Irritable bowel syndrome, unspecified; K21.9 Gastro-esophageal reflux disease without esophagitis; Z96.652 Presence of left artificial knee joint; Z88.8 Allergy status to other drugs, medicaments and biological substances; Z79.4 Long term (current) use of insulin; Z79.82 Long term (current) use of aspirin; Z79.890 Hormone replacement therapy; Z79.899 Other long term (current) drug therapy; Z87.442 Personal history of urinary calculi; Z90.49 Acquired absence of other specified parts of digestive tract; Z90.710 Acquired absence of both cervix and uterus; Z95.1 Presence of aortocoronary bypass graft; Z95.5 Presence of coronary angioplasty implant and graft; Z87.81 Personal history of (healed) traumatic fracture; Z88.0 Allergy status to penicillin
CPT/HCPCS: 22510; 36415; 71046; 72128; 78300; 80053; 81001; 82306; 82962; 84484; 85025; 85610; 85730; 87086; 93005; 96372; 96374; 99152; 99153; A9503; C1713; C1725; J0696; J1815; J1885; J2250; J3010; J8597; 99285-25

== ENCOUNTER 2018-12-01 20:23 | Inpatient (IN) | payer MEDICARE, OTHER ==
[~2018-12-01] VITALS: Ht 152.4 cm; Wt 64.6 kg
[2018-12-01] MEDS ORDERED: ASPIRIN CHEWABLE 81 MG TABLET. PO ONE (20:45)
[2018-12-01] MEDS ORDERED: ONDANSETRON PF 4 MG/2 ML VIAL. IV ONE (21:00)
[2018-12-01 21:12] LABS: BASO % 1 % (0-3); EOS # 0.1 x10^3/uL (0.0-0.7); EOS % 1 % (0-3); HEMATOCRIT 37.9 % (36.0-47.0); HEMOGLOBIN 12.6 g/dL (12.0-15.5); LYMPH # 2.1 x10^3/uL (1.0-4.8); LYMPH % 35 % (24-48); MEAN CORPUSCULAR HEMOGLOBIN 30 pg (25-35); MEAN CORPUSCULAR HGB CONC 33 g/dL (31-37); MEAN CORPUSCULAR VOLUME 91 fL (79-100); MONO # 0.5 x10^3/uL (0.0-1.1); MONO % 8 % (0-9); NEUT # 3.3 x10^3uL (1.8-7.7); NEUT % 55 % (31-73); PLATELET COUNT 365 x10^3/uL (140-400); RED BLOOD COUNT 4.17 x10^6/uL (3.50-5.40); RED CELL DISTRIBUTION WIDTH 15.5 % (11.5-14.5)
[2018-12-01 21:16] LABS: BILIRUBIN,URINE NEGATIVE (NEG); CLARITY,URINE CLEAR; COLOR,URINE YELLOW; NITRITE,URINE NEGATIVE (NEG); PH,URINE 6.5; PROTEIN,URINE NEGATIVE (NEG-TRACE); UROBILINOGEN,URINE 0.2 mg/dL (0.2 mg/dL)
[2018-12-01 21:19] LABS: CALCIUM 10.1 mg/dL (8.5-10.1); CREATININE 1.2 mg/dL (0.6-1.0); POTASSIUM 3.2 mmol/L (3.5-5.1)
[2018-12-01 21:24] LABS: PROTHROMBIN TIME PATIENT 11.5 SEC (11.7-14.0)
[2018-12-01 21:25] LABS: ALBUMIN 3.9 g/dL (3.4-5.0); TOTAL BILIRUBIN 0.3 mg/dL (0.2-1.0); TOTAL PROTEIN 7.8 g/dL (6.4-8.2)
[2018-12-01 21:26] LABS: BACTERIA,URINE 0 /HPF (0-FEW); RBC,URINE 0 /HPF (0-2); SQUAMOUS EPITHELIAL CELL,UR FEW /LPF
[2018-12-01] MEDS ORDERED: NITROGLYCERIN SUBLINGUAL 0.4 MG BOTTLE OF 25. SL PRN ×2 (21:30→23:45)
--- NOTE | 2018-12-01 21:30 | PHYS DOC ---
Past Medical History Past Medical History: Bipolar, CAD, Diabetes-Type II, Heart Disease, Hypertension, IBS, Seizure, Other Additional Past Medical Histor: Gastroparesis, CHRONIC PAIN, COMPRESSION FX Past Surgical History: Appendectomy, Cholecystectomy, Coronary Bypass Surgery, Hysterectomy, Other Additional Past Surgical Histo: Cardiac stents x 5, CABG, Fused R)ankle surgery, thyroidectomy,pain stimul Alcohol Use: None Drug Use: None Adult General Chief Complaint Chief Complaint: NAUSEA/VOMITING/DIARRHA HPI HPI Patient is a 73 year old female who presents with complaints of three days of vomiting, chest pain, diarrhea. Examination is hindered by patient being uncoop erative. CHEST PAIN PRESSURE CENTER OF CHEST COMES AND GOES BUT PRETTY CONSTANT SINCE LAST NIGHT. She is brought in by EMS services. She reports her chest pain is accompanied by pressure, clamminess and sweating. She reports vomiting 10+ times and that the vomiting is accompanied by epigastric pain that comes and goes. She denies CP, SOB, f/c. She denies hematemesis, hematochezia, hematuria. She denies sick contacts. She lives with her and sees her PCP, Dr. Masters. She reports a VT 5+ years ago. EMS services reports that she was wearing 3 fentanyl patches, and removed 2 during transit. During the interview, her daughter in law arrived and reported that earlier today she came to the house agitated and anxious and seeking pain medication.[] Review of Systems Review of Systems Constitutional: Denies fever or chills [] Eyes: Denies change in visual acuity, redness, or eye pain [] HENT: Denies nasal congestion or sore throat [] Cardiovascular: No additional information not addressed in HPI [] GI: Reports vomiting x 10 and diarrhea. Denies abdominal pain bloody stools[] : Denies dysuria or hematuria [] Neurologic: Denies headache, focal weakness or sensory changes [] All other systems were reviewed and found to be within normal limits, except as documented in this note. Current Medications Current Medications Current Medications Medications (Trade) Dose Ordered Sig/Melanie Start Time Stop Time Status Last Admin Dose Admin Aspirin (Children'S Aspirin) 324 mg 1X ONCE 12/01/18 20:45 12/01/18 20:51 DC 12/01/18 21:33 324 MG Nitroglycerin (Nitrostat) 0.4 mg PRN Q5MIN PRN 12/01/18 21:30 12/02/18 21:29 Ondansetron HCl (Zofran) 4 mg 1X ONCE 12/01/18 21:00 12/01/18 21:01 DC 12/01/18 21:33 4 MG fentanyl patch Allergies Allergies Allergies Coded Allergies Type Severity Reaction Last Updated Verified Iodinated Contrast- Oral and IV Dye Allergy Severe Anaphylaxis 05/27/18 Yes Penicillins Allergy Intermediate 05/27/18 Yes atenolol Allergy Intermediate TAKES METOPROLOL AT HOME 05/27/18 Yes erythromycin base Allergy Intermediate 05/27/18 Yes iodine Allergy Intermediate 05/27/18 Yes levofloxacin Allergy Intermediate 05/27/18 Yes pregabalin Allergy Intermediate 05/27/16 Yes Physical Exam Physical Exam Constitutional: Well developed, well nourished. [] HENT: Normocephalic, atraumatic, bilateral external ears normal, oropharynx moist, no oral exudates, nose normal. [] Eyes: PERRLA, EOMI, conjunctiva normal, no discharge. [] Neck: Normal range of motion, no tenderness, supple, no stridor. [] Cardiovascular:Heart rate regular rhythm, no murmur [] Lungs & Thorax: Bilateral breath sounds clear to auscultation [] Abdomen: Bowel sounds normal, soft, no tenderness, no masses, no pulsatile masses. [] Skin: Warm, dry, no erythema, no rash. [] Extremities: No tenderness, no cyanosis, no clubbing, ROM intact, no edema. [] Neurologic: Alert and oriented X 3, normal motor function, normal sensory function, no focal deficits noted. [] Psychologic: Affect normal, judgement normal, mood VERY anxious [] Current Patient Data Lab Values Laboratory Tests Test 12/01/18 21:04 12/01/18 21:10 White Blood Count 6.0 x10^3/uL (4.0-11.0) Red Blood Count 4.17 x10^6/uL (3.50-5.40) Hemoglobin 12.6 g/dL (12.0-15.5) Hematocrit 37.9 % (36.0-47.0) Mean Corpuscular Volume 91 fL (79-100) Mean Corpuscular Hemoglobin 30 pg (25-35) Mean Corpuscular Hemoglobin Concent 33 g/dL (31-37) Red Cell Distribution Width 15.5 % (11.5-14.5) H Platelet Count 365 x10^3/uL (140-400) Neutrophils (%) (Auto) 55 % (31-73) Lymphocytes (%) (Auto) 35 % (24-48) Monocytes (%) (Auto) 8 % (0-9) Eosinophils (%) (Auto) 1 % (0-3) Basophils (%) (Auto) 1 % (0-3) Neutrophils # (Auto) 3.3 x10^3uL (1.8-7.7) Lymphocytes # (Auto) 2.1 x10^3/uL (1.0-4.8) Monocytes # (Auto) 0.5 x10^3/uL (0.0-1.1) Eosinophils # (Auto) 0.1 x10^3/uL (0.0-0.7) Basophils # (Auto) 0.0 x10^3/uL (0.0-0.2) Prothrombin Time 11.5 SEC (11.7-14.0) L Prothrombin Time INR 0.9 (0.8-1.1) Sodium Level 136 mmol/L (136-145) Potassium Level 3.2 mmol/L (3.5-5.1) L Chloride Level 96 mmol/L (98-107) L Carbon Dioxide Level 25 mmol/L (21-32) Anion Gap 15 (6-14) H Blood Urea Nitrogen 16 mg/dL (7-20) Creatinine 1.2 mg/dL (0.6-1.0) H Estimated GFR (Cockcroft-Gault) 44.0 BUN/Creatinine Ratio 13 (6-20) Glucose Level 398 mg/dL (70-99) H Calcium Level 10.1 mg/dL (8.5-10.1) Total Bilirubin 0.3 mg/dL (0.2-1.0) Aspartate Amino Transferase (AST) 19 U/L (15-37) Alanine Aminotransferase (ALT) 22 U/L (14-59) Alkaline Phosphatase 139 U/L (46-116) H Troponin I Quantitative < 0.017 ng/mL (0.000-0.055) Total Protein 7.8 g/dL (6.4-8.2) Albumin 3.9 g/dL (3.4-5.0) Albumin/Globulin Ratio 1.0 (1.0-1.7) Lipase 151 U/L (73-393) Urine Collection Type Unknown Urine Color Yellow Urine Clarity Clear Urine pH 6.5 Urine Specific [place] 1.015 Urine Protein Negative mg/dL (NEG-TRACE) Urine Glucose (UA) >=1000 mg/dL (NEG) Urine Ketones (Stick) Negative mg/dL (NEG) Urine Blood Negative (NEG) Urine Nitrite Negative (NEG) Urine Bilirubin Negative (NEG) Urine Urobilinogen Dipstick 0.2 mg/dL (0.2 mg/dL) Urine Leukocyte Esterase Trace (NEG) Urine RBC 0 /HPF (0-2) Urine WBC 1-4 /HPF (0-4) Urine Squamous Epithelial Cells Few /LPF Urine Bacteria 0 /HPF (0-FEW) Laboratory Tests 12/01/18 21:04 Laboratory Tests 12/01/18 21:04 EKG EKG []NSR RATE [address] CHANGES ANTEIRORLY BUT OVERTALL SIMILAR COMPARED TO 10/14/18. NO STEMI. QTC 452. Radiology/Procedures Radiology/Procedures [] Impressions: MY READ CXR NEG ACUTE NO PTX NO PNA Course & Med Decision Making Course & Med Decision Making Pertinent Labs and Imaging studies reviewed. (See chart for details) Pt presents with complaints of three days of vomiting, diarrhea, epigastric pain accompanied by sweating and clamminess. She has a history of cardiac disease with stent placement. Must assess and r/o cardiac etiology for CP first, however, more concerned for dehydration secondary to fluid loss due to possible GI illness. In addition, given daughter in law's story, will admit patient for continued monitoring and drug dependency evaluation.[] LABS NOTED K , REPLETED IN ER. NOTED HYPERGLYCEMIA, PALCE ON MAINTENANCE FLUID, RESTART HOME MEDS. D/W ZINA PRIOR TO PT ARRIVAL ASKED ME TO ADMIT SERIAL TROPS CONSULT JEAN-PAUL. D/W PT SISTER IN LAW. CONCERNS ABOUT CHRONIC PAIN OVERUSE . I TEND TO AGREE BUT THIS IS LONGSTANDING, CAN BE ADDRESSED IN AM NEEDED. PT DID HAVE THREE FENTANYL PATCHES PER EMS, TWO WERE REMOVED ONLY ONE ON, PT IS ALERT AND ANXIOUS IN THE ER. Dragon Disclaimer Dragon Disclaimer This electronic medical record was generated, in whole or in part, using a voice recognition dictation system. Departure Departure Impression: Primary Impression: Chest pain Disposition: ADMITTED INPATIENT Admitting Physician: Natanael Masters Condition: STABLE Referrals: RAFIQ MORENO MD (PCP) POLO ALEMAN MD Dec 01, 2018 21:30
[2018-12-01] MEDS ORDERED: IV NORMAL SALINE 1000ML BAG 1,000 ML IV ONE (21:45)
[2018-12-01] MEDS ORDERED: POTASSIUM CHLORIDE 20 MEQ/15 ML ORAL LIQUID. PO ONE (21:45)
[2018-12-01 23:19] VITALS: BP 181/92
[2018-12-01] MEDS ORDERED: DEXTROSE 50% 25 GM / 50ML DISP.SYRIN. IV PRN (23:45)
[2018-12-01] MEDS: oxyCODONE IR 5 MG TABLET PO PRN (23:59)
--- NOTE | 2018-12-02 01:01 | NUR ---
Pt. arrived from ED to room 250 via wheelchair. Medications verified with Dr. Masters. Pt. complained of pain in back and chest that is stabbing pain.
[2018-12-02 03:21] VITALS: BP 150/69
[2018-12-02] MEDS: LEVOTHYROXINE 75 MCG TABLET PO SCH (06:00)
--- NOTE | 2018-12-02 06:36 | EKG ---
[facility] [address] [place] [address] Test Date: 2018-12-01 Test Time: 20:47:05 Pat Name: ORLIN ROJAS Department: Room: 250 1 Gender: F Food Writer: : 1945 Requested By: POLO ALEMAN Order Number: [id number] Reading MD: Sae Mendoza Measurements Intervals [place] Rate: 83 P: 22 MS: 158 QRS: -25 QRSD: 100 T: 90 QT: 384 QTc: 452 Interpretive Statements SINUS RHYTHM LEFT ATRIAL ABNORMALITY LEFTWARD AXIS QRS(T) CONTOUR ABNORMALITY CONSISTENT WITH ANTEROSEPTAL INFARCT AGE UNDETERMINED ST & T ABNORMALITY, CONSIDER HIGH LATERAL ISCHEMIA OR LEFT VENTRICULAR STRAIN ABNORMAL ECG Electronically Signed On 12-08-2018 11:20:32 CDT by Sae Mendoza
[2018-12-02 07:00] VITALS: BP 159/78
--- NOTE | 2018-12-02 07:51 | RAD ---
Examination: PORTABLE CHEST 1V History: CHEST PAIN Comparison/Correlation: 10/14/2018 two-view chest x-ray exam Findings: Portable upright frontal view of the chest was obtained. Sternal wires Wel[place] clips are present. Spinal stimulator lead is present. Heart size is within upper limits of normal. No pneumothorax. Limited pulmonary inflation noted. No definite infiltrate or pleural effusion. No acute bony process. Vertebroplasty noted at the low lumbar spine. Impression: No active disease. Electronically signed by: Waldo Fuentes MD (12/02/2018 7:48 AM) [facility]
[2018-12-02 08:56] LABS: CALCIUM 9.8 mg/dL (8.5-10.1); GFR 54.3; POTASSIUM 3.8 mmol/L (3.5-5.1)
[2018-12-02 09:10] LABS: CHOLESTEROL 254 mg/dL (0-200); CHOLESTEROL/HDL RATIO 7.7; HDLC 33 mg/dL (40-60); TRIGLYCERIDES 639 mg/dL (0-150); VLDLC 128 mg/dL (0-40)
[2018-12-02] MEDS: levETIRAcetam 500 MG TABLET PO SCH ×2 (09:20→20:34)
[2018-12-02] MEDS: oxyCODONE IR 5 MG TABLET PO PRN ×3 (09:20→22:56)
[2018-12-02] MEDS: LOSARTAN POTASSIUM 50 MG TABLET. PO SCH (09:20)
[2018-12-02] MEDS: ASPIRIN 325 MG TABLET PO SCH (09:20)
[2018-12-02] MEDS: CYANOCOBALAMIN (VITAMIN B-12) 1,000 MCG TABLET. PO SCH (09:20)
[2018-12-02] MEDS: MULTIVITAMIN with MINERAL TABLET. PO SCH (09:20)
[2018-12-02] MEDS: CLOPIDOGREL BISULFATE 75 MG TABLET PO SCH (09:20)
[2018-12-02] MEDS: DICYCLOMINE HCL 10 MG CAPSULE PO PRN ×2 (09:20→16:05)
[2018-12-02] MEDS: ISOSORBIDE MONONITRATE ER 30 MG TAB.ER.24H PO SCH (09:21)
[2018-12-02] MEDS: INSULIN LISPRO 300 UNITS/3 ML INSULN.PEN. SQ SCH ×6 (09:26→17:22)
--- NOTE | 2018-12-02 10:06 | NUR ---
Pt reporting "extreme anxiety", states "I need my Ativan NOW". Medication is listed in home meds, restarted in system.
[2018-12-02] MEDS ORDERED: LORA1TAB PO (10:11)
--- NOTE | 2018-12-02 10:29 | PDOC ---
Provider Note Provider Note history and physical dictated # [id number] DENICE IAZGUIRRE MD Dec 02, 2018 10:29
[2018-12-02] MEDS ORDERED: LORazepam 1 MG TABLET PO PRN (10:30)
[2018-12-02] MEDS ORDERED: ONDANSETRON ODT 4 MG TAB.RAPDIS. PO PRN (10:30)
[2018-12-02] MEDS ORDERED: ACETAMINOPHEN 325 MG TABLET. PO PRN (10:30)
[2018-12-02 11:00] VITALS: BP 131/71
[2018-12-02] MEDS: ONDANSETRON ODT 4 MG TAB.RAPDIS. PO SCH ×2 (11:14→15:56)
[2018-12-02] MEDS: PIOGLITAZONE 15 MG TABLET. PO SCH (11:14)
[2018-12-02] MEDS: amLODIPine BESYLATE 5 MG TABLET PO SCH (11:14)
[2018-12-02] MEDS: LORazepam 1 MG TABLET PO PRN ×2 (11:14→17:02)
--- NOTE | 2018-12-02 11:24 | HP ---
ADMIT DATE: 12/02/2018 LOCATION: She is in room 250. HISTORY OF PRESENT ILLNESS: The patient is a 73-year-old white female with history of diabetes mellitus type 2 on insulin with gastroparesis, hypertension, hyperlipidemia, and coronary artery disease as well as osteoporosis and chronic pain, who was admitted to [facility] through the Emergency Room on 12/01/2018 with intermittent chest discomfort. She also had some nausea and vomiting and some diarrhea the last 3 days. She described the chest pain as a dull pain, a little bit different from her angina and radiates to her back. She went to the [facility] Emergency Room where she was subsequently admitted and evaluated. She has not been short of breath. She says her blood sugars have been running high up to 500 at home. She eats 2 meals a day and has been taking her insulin. ALLERGIES AND INTOLERANCES: INCLUDE ORAL AND IV DYE, PENICILLIN, ATENOLOL, ERYTHROMYCIN, IODINE, LEVAQUIN AND LYRICA. MEDICATIONS: Prior to admission include Actos 45 mg every day, amlodipine 5 mg every day, aspirin 81 mg every day, atorvastatin 40 mg every day, calcium citrate 250 mg b.i.d., Plavix 75 mg every day, fentanyl 25 mcg patch every 72 hours, isosorbide mononitrate extended release 30 mg every day, Keppra 1000 mg b.i.d., Lantus insulin 18 units at bedtime, levothyroxine 75 mcg every day, lorazepam 1 mg t.i.d. p.r.n., losartan 50 mg every day, metoclopramide 10 mg a.c. t.i.d. and at bedtime, metoprolol succinate 50 mg every day, nitroglycerin 0.4 mg sublingual p.r.n., multiple vitamin once a day, NovoLog insulin 10 units before meals b.i.d., oxycodone 10 mg every 8 hours p.r.n., Protonix 40 mg every day, vitamin B12 at 1000 mcg every day, vitamin D 1000 units every day, and Ambien 5 mg at bedtime p.r.n. PAST MEDICAL HISTORY: Significant for diabetes mellitus type 2 with diabetic gastroparesis. She is on insulin. She has hypertension, hyperlipidemia, and coronary artery disease. History of seizure disorder. She has had history of gastritis in 2012, diverticulitis with diverticulosis, reflux esophagitis, internal hemorrhoids, Schatzki stricture was dilated in 2011, right ankle arthroplasty, three-vessel coronary artery bypass graft surgery in 2002, L1 lumbar kyphoplasty recently and a T6 vertebroplasty on 10/17/2018, gastroesophageal reflux disease, kidney stones. Lumbar spondylosis, macular degeneration. She had a PTCA and coronary stents x 3 to the left anterior descending coronary artery and circumflex coronary artery, appendectomy, cholecystectomy, tonsillectomy. Diabetic peripheral neuropathy. She had the L1 kyphoplasty vertebral fracture on 09/30/2018, stent to the circumflex coronary artery in 2013. She has had a left total knee arthroplasty, open reduction internal fixation of right ankle fracture and I believe she has had a right ankle fusion also. SOCIAL HISTORY: She does not drink alcohol nor does she smoke cigarettes. She is . FAMILY HISTORY: Noncontributory. REVIEW OF SYSTEMS: GENERAL: There has been no fever, chills or sweats. CARDIOVASCULAR: She had the chest pain. PULMONARY: No cough or shortness of breath. GASTROINTESTINAL: She had nausea, vomiting and loose stools and some projectile vomiting, she said. ENDOCRINE: She has diabetes mellitus. SKIN: No rashes. The rest of systems reviewed and negative except as stated in history of present illness. PHYSICAL EXAMINATION: VITAL SIGNS: Temperature is 97.6 degrees, apical pulse 65, respiratory rate 18, blood pressure 159/78, oxygen saturation 92% on room air. HEENT: Eyes: Gaze is conjugate. Extraocular muscles are intact. Mouth: Tongue is midline. NECK: There is no cervical lymphadenopathy or thyroid enlargement. HEART: Reveals an S1, S2. There is no S3 or murmur. LUNGS: Clear. ABDOMEN: Soft, nontender, not distended. EXTREMITIES: Lower extremities without edema. SKIN: No rashes. NEUROLOGIC: Shows she is coherent. No focal weakness in arms or legs. LABORATORY DATA: The white count was 6.0, hemoglobin 12.6, platelet count 365,000 with 55 polys, and 35 lymphocytes. INR of 0.9. Serum sodium 139, potassium 3.8, chloride 101, total CO2 was 23, BUN 15, creatinine 1.0, blood sugar 275 today with a magnesium 2.0. Fingerstick blood sugar this morning was 223. Triglycerides are 639 at 3:15 this morning, cholesterol 254, LDL could not be done because the triglycerides are so high, the HDL cholesterol is 33. Sodium is 136, potassium 3.2, chloride 96, total CO2 is 25. Today, the potassium is normal at 3.8. Liver function tests were okay except for an alkaline phosphatase of 139, which could be due from her recent vertebral fracture. Albumin 3.9, lipase 151. Urinalysis was unremarkable. Chest x-ray was normal. EKG showed normal sinus rhythm and no acute change. She has a left atrial abnormality; I believe a left anterior hemiblock. ASSESSMENT: 1. Atypical chest pain. We will consult Cardiology. 2. Diabetic gastroparesis. 3. Diabetes mellitus type 2, on insulin with hyperglycemia. 4. Hypertension. 5. Hyperlipidemia. 6. Coronary artery disease. 7. Osteoporosis. 8. Chronic pain. PLAN: At this time is to consult Dr. Allen for Cardiology. We will consult Dr. Edwards for GI. We will continue with her home medications. Order cardiac enzymes. All 3 cardiac enzymes are negative. We will recheck her labs again tomorrow. Order some antiemetics. Continue the metoclopramide and order some Zofran before meals t.i.d. Monitor blood sugars. DENICE IZAGUIRRE MD DR: MIKAL/mandy JOB#: [id number] / [id number]
[2018-12-02] MEDS ORDERED: METOCLOPRAMIDE 10 MG TABLET. PO SCH (11:30)
--- NOTE | 2018-12-02 11:52 | PDOC2 ---
JULITO MICHAEL JEWELRY FINISHER 12/02/18 1152: CARDIAC CONSULT DATE OF CONSULT Date of Consult DATE: 12/02/18 TIME: 11:42 REASON FOR CONSULT Reason for Consult: Chest pain REFERRING PHYSICIAN Referring Physician: Guerrero SOURCE Source: Chart review, Patient HISTORY OF PRESENT ILLNESS HISTORY OF PRESENT ILLNESS This is a pleasant 73 yo female admitted for complains of vomiting and chest pain. Reports that she has been vomiting at least 6x in the last 3 days but overnight she has been better. Also with sharp midchest pain that goes to her back and also this is reproducible with palpation, Her back pain is chronic with recent vertebroplasty to her T6. No recent falls or injury. No reports of diaphoresis, jaw tightness or arm pain. No exertional SOA. No changes to activity tolerance although limited due to her chronic back pain. She does have high risk for falls with intermittent use of her walker and weakness. PAST MEDICAL HISTORY Past Medical History Cardiovascular: CAD, HTN, Hyperlipidemia Pulmonary: Bronchitis CENTRAL NERVOUS SYSTEM: Seizure GI: GERD, gastroparesis Heme/Onc: No pertinent hx Hepatobiliary: No pertinent hx Psych: No pertinent hx Musculoskeletal: low back pain, Osteoarthritis Rheumatologic: No pertinent hx Infectious disease: No pertinent hx Renal/: Chronic renal insuff, Other Endocrine: Diabetes PAST SURGICAL HISTORY Past Surgical History Appendectomy, Cholecystectomy, CABG, LHC, PCI, Recent T6 vertebroplasty FAMILY HISTORY Family History: Hypertension SOCIAL HISTORY Smoke: No ALCOHOL: none Drugs: None Lives: with Family CURRENT MEDICATIONS CURRENT MEDICATIONS Current Medications Medications (Trade) Dose Ordered Sig/Melanie Route PRN Reason Start Time Stop Time Status Last Admin Dose Admin Aspirin (Children'S Aspirin) 324 mg 1X ONCE PO 12/01/18 20:45 12/01/18 20:51 DC 12/01/18 21:33 Ondansetron HCl (Zofran) 4 mg 1X ONCE IV 12/01/18 21:00 12/01/18 21:01 DC 12/01/18 21:33 Potassium Chloride (KCl Oral Soln) 40 meq 1X ONCE PO 12/01/18 21:45 12/01/18 21:46 DC 12/01/18 22:11 Sodium Chloride 1,000 ml @ 75 mls/hr 1X ONCE IV 12/01/18 21:45 12/02/18 11:04 DC 12/01/18 22:12 Aspirin (Dev Aspirin) 81 mg DAILYWBKFT PO 12/02/18 08:00 12/02/18 09:20 Clopidogrel Bisulfate (Plavix) 75 mg DAILY PO 12/02/18 09:00 12/02/18 09:20 Cyanocobalamin (Vitamin B-12) 1,000 mcg DAILY PO 12/02/18 09:00 12/02/18 09:20 Dicyclomine HCl (Bentyl) 10 mg PRN Q6HRS PRN PO abdominal cramps 12/01/18 23:45 12/02/18 09:20 Insulin Human Lispro (HumaLOG) 10 units TIDAC SQ 12/02/18 07:30 12/02/18 09:27 Isosorbide Mononitrate (Imdur) 30 mg DAILY PO 12/02/18 09:00 12/02/18 09:21 Levetiracetam (Keppra) 1,000 mg BID PO 12/02/18 09:00 12/02/18 09:20 Levothyroxine Sodium (Synthroid) 75 mcg DAILY06 PO 12/02/18 06:00 12/02/18 06:00 Losartan Potassium (Cozaar) 50 mg DAILY PO 12/02/18 09:00 12/02/18 09:20 Multivitamins (Thera M Plus) 1 tab DAILY PO 12/02/18 09:00 12/02/18 09:20 Oxycodone HCl (Roxicodone) 10 mg PRN Q6HRS PRN PO PAIN 12/01/18 23:45 12/02/18 09:20 Insulin Human Lispro (HumaLOG) 0-7 UNITS TIDWMEALS SQ 12/02/18 08:00 12/02/18 09:26 Ondansetron HCl (Zofran Odt) 4 mg TIDAC PO 12/02/18 11:30 12/02/18 11:14 Metoclopramide HCl (Reglan) 10 mg QIDACHS PO 12/02/18 11:30 12/02/18 11:14 Lorazepam (Ativan) 1 mg PRN TID PRN PO ANXIETY / AGITATION 12/02/18 10:30 12/02/18 11:14 Pioglitazone HCl (Actos) 45 mg DAILY PO 12/02/18 12:00 12/02/18 11:14 Amlodipine Besylate (Norvasc) 5 mg DAILY PO 12/02/18 12:00 12/02/18 11:14 ALLERGIES ALLERGIES: Coded Allergies: Iodinated Contrast- Oral and IV Dye (Verified Allergy, Severe, Anaphylaxis, 05/27/18) Penicillins (Verified Allergy, Intermediate, 05/27/18) atenolol (Verified Allergy, Intermediate, TAKES METOPROLOL AT HOME, 05/27/18) erythromycin base (Verified Allergy, Intermediate, 05/27/18) iodine (Verified Allergy, Intermediate, 05/27/18) levofloxacin (Verified Allergy, Intermediate, 05/27/18) pregabalin (Verified Allergy, Intermediate, 05/27/16) ROS Review of System 14 point ROS evaluated with pertinent positives noted per HPI PHYSICAL EXAM General: Alert, Oriented X3, Cooperative, No acute distress HEENT: Atraumatic, Mucous membr. moist/pink Lungs: Clear to auscultation, Normal air movement Heart: Regular rate, Normal S1, Normal S2 Abdomen: Soft, No tenderness, Other (obese) Extremities: No cyanosis, No edema Skin: No breakdown, No significant lesion Neuro: Normal speech, Sensation intact Psych/Mental Status: Mental status NL, Other (anxious) MUSCULOSKELETAL: Osteoarthritic changes both hands VITALS VITALS Vital Signs Date Time Temp Pulse Resp B/P (MAP) Pulse Ox O2 Delivery O2 Flow Rate FiO2 12/02/18 11:14 65 159/78 12/02/18 10:20 18 Room Air 12/02/18 07:00 97.6 92 97.6 LABS Lab: Laboratory Tests Test 12/01/18 21:04 12/01/18 21:10 12/02/18 00:30 12/02/18 03:15 White Blood Count 6.0 x10^3/uL (4.0-11.0) Red Blood Count 4.17 x10^6/uL (3.50-5.40) Hemoglobin 12.6 g/dL (12.0-15.5) Hematocrit 37.9 % (36.0-47.0) Mean Corpuscular Volume 91 fL (79-100) Mean Corpuscular Hemoglobin 30 pg (25-35) Mean Corpuscular Hemoglobin Concent 33 g/dL (31-37) Red Cell Distribution Width 15.5 % (11.5-14.5) Platelet Count 365 x10^3/uL (140-400) Neutrophils (%) (Auto) 55 % (31-73) Lymphocytes (%) (Auto) 35 % (24-48) Monocytes (%) (Auto) 8 % (0-9) Eosinophils (%) (Auto) 1 % (0-3) Basophils (%) (Auto) 1 % (0-3) Neutrophils # (Auto) 3.3 x10^3uL (1.8-7.7) Lymphocytes # (Auto) 2.1 x10^3/uL (1.0-4.8) Monocytes # (Auto) 0.5 x10^3/uL (0.0-1.1) Eosinophils # (Auto) 0.1 x10^3/uL (0.0-0.7) Basophils # (Auto) 0.0 x10^3/uL (0.0-0.2) Prothrombin Time 11.5 SEC (11.7-14.0) Prothromb Time International Ratio 0.9 (0.8-1.1) Sodium Level 136 mmol/L (136-145) 139 mmol/L (136-145) Potassium Level 3.2 mmol/L (3.5-5.1) 3.8 mmol/L (3.5-5.1) Chloride Level 96 mmol/L (98-107) 101 mmol/L (98-107) Carbon Dioxide Level 25 mmol/L (21-32) 23 mmol/L (21-32) Anion Gap 15 (6-14) 15 (6-14) Blood Urea Nitrogen 16 mg/dL (7-20) 15 mg/dL (7-20) Creatinine 1.2 mg/dL (0.6-1.0) 1.0 mg/dL (0.6-1.0) Estimated GFR (Cockcroft-Gault) 44.0 54.3 BUN/Creatinine Ratio 13 (6-20) Glucose Level 398 mg/dL (70-99) 275 mg/dL (70-99) Calcium Level 10.1 mg/dL (8.5-10.1) 9.8 mg/dL (8.5-10.1) Total Bilirubin 0.3 mg/dL (0.2-1.0) Aspartate Amino Transf (AST/SGOT) 19 U/L (15-37) Alanine Aminotransferase (ALT/SGPT) 22 U/L (14-59) Alkaline Phosphatase 139 U/L (46-116) Troponin I Quantitative < 0.017 ng/mL (0.000-0.055) < 0.017 ng/mL (0.000-0.055) < 0.017 ng/mL (0.000-0.055) Total Protein 7.8 g/dL (6.4-8.2) Albumin 3.9 g/dL (3.4-5.0) Albumin/Globulin Ratio 1.0 (1.0-1.7) Lipase 151 U/L (73-393) Urine Collection Type Unknown Urine Color Yellow Urine Clarity Clear Urine pH 6.5 Urine Specific Ambler 1.015 Urine Protein Negative mg/dL (NEG-TRACE) Urine Glucose (UA) >=1000 mg/dL (NEG) Urine Ketones (Stick) Negative mg/dL (NEG) Urine Blood Negative (NEG) Urine Nitrite Negative (NEG) Urine Bilirubin Negative (NEG) Urine Urobilinogen Dipstick 0.2 mg/dL (0.2 mg/dL) Urine Leukocyte Esterase Trace (NEG) Urine RBC 0 /HPF (0-2) Urine WBC 1-4 /HPF (0-4) Urine Squamous Epithelial Cells Few /LPF Urine Bacteria 0 /HPF (0-FEW) Magnesium Level 2.0 mg/dL (1.8-2.4) Triglycerides Level 639 mg/dL (0-150) Cholesterol Level 254 mg/dL (0-200) LDL Cholesterol, Calculated mg/dL (0-100) VLDL Cholesterol, Calculated 128 mg/dL (0-40) Non-HDL Cholesterol Calculated 221 mg/dL (0-129) HDL Cholesterol 33 mg/dL (40-60) Cholesterol/HDL Ratio 7.7 Test 12/02/18 07:27 Glucose (Fingerstick) 223 mg/dL (70-99) HEART CATH HEART CATH Conclusion 1. Normal LVEDP 2. Three vessel CAD with patent stents in the LCx and RCA. 3. Patent [place]ES to LAD and SVG to D1 4. Severely diffusely diseased and small caliber mid to distal LAD that is not intervenable. 5. Severe ISR of the proximal LAD with poor outflow, stable compared to prior and again suboptimal for repeat intervention. Recommendations Aggressive Medical Therapy DATE: 11/20/16 1323 ASSESSMENT/PLAN ASSESSMENT/PLAN 1. Atypical Chest pain: normal trops, EKG SR without acute changes by comparison. Likely combination of GI and MSK. 2. N/V/diarrhea: with hx of gastroparesis. 3. CAD; past CABG with known multiple diffused disease 4. HTN: initially labile and currently controlled. 5. DM2; BG uncontrolled, per PCP 6. HLP: uncontrolled TG 600s. 7. Seizure disorder Recommendations 1. GI consult 2. TTE 3. Continue secondary prevention. Dietitian consult. 4. Will need better control of BG. Consider fenofibrate. Supportive care. JOSÉ MIGUEL CHAN MD 12/02/18 1832: CARDIAC CONSULT ASSESSMENT/PLAN ASSESSMENT/PLAN Pt. seen and examined. Agree with above DIALYSIS TECHNICIAN note. Non-cardiac chest pain. Likely gastroparesis. Cannot rule out small vessel disease. She is on two anti-anginals. Reviewed prior cath and echo now. Increase imdur to 60mg daily upon discharge and then consider outpt titration of amlodipine to 5mg bid. She has previously been on renexa according to her and not had a good response to angina. Consider cath on an outpt basis if chest pain despite adequate BP control. JULITO MICHAEL APRN Dec 02, 2018 11:52 JOSÉ MIGUEL CHAN MD Dec 02, 2018 18:32
[2018-12-02] MEDS ORDERED: PERFLUTREN PROTEIN-A MICROSPHR 0.22 MG/ML 3 ML VIAL. IV PRN (13:15)
--- NOTE | 2018-12-02 14:11 | PDOC2 ---
GI CONSULT Reason For Consult: Vomiting and diarrhea HPI: HPI: 73 y/o female who we have seen in the past. Tells me 3 days of n/v, chest pain ("spasm" with radiation to mid back), and diarrhea (4-5 loose stools daily, none today). 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 Additional h/o GERD on Protonix ( can tell me she takes it "once a day"). EGD 06/2016: healed grade III reflux, small hiatal hernia, normal duodenum. Colonoscopy in 2012 showed diverticulosis and hemorrhoids. GES w/ delayed emptying in 04/2018 - 18% retention at 4 hours and T1/2 131 min. S/p cholecystectomy. Chronic pain on oxycodone TID, recently w/ additional of Fentanyl patch. H/o CAD on ASA and Plavix. Tolerated PO today "but I still feel sick to my stomach." She's out of coke and would like a 7Up next. PMH: PMH: CAD, HTN, HLD, bronchitis, seizure, GERD, gastroparesis, back pain, OA, CKD, IDDM, neuropathy, macular degeneration, bipolar disorder, lumbar spondylosis, compression fractures, nephrolithiasis appendectomy, cholecystectomy, CABG, cardiac cath w/ stents, vertebroplasty, right ankle surgery w/ hardware, knee arthroscopy, tonsillectomy, non- functioning neuro-stimulator, hysterectomy FH: Family History: No pertinent hx Social History: Smoke: No ALCOHOL: none Drugs: None ROS: GEN: Denies fevers, chills, sweats HEENT: Denies blurred vision, sore throat CV: +chest pain RESP: Denies shortness of air, cough GI: Per HPI : Denies hematuria, dysuria ENDO: Denies weight changes NEURO: Denies confusion, dizziness MSK: +back pain, ankle pain SKIN: Denies jaundice, pruritus Vitals: Vitals: Vital Signs Date Time Temp Pulse Resp B/P (MAP) Pulse Ox O2 Delivery O2 Flow Rate FiO2 12/02/18 11:14 65 159/78 12/02/18 11:00 98.5 20 97 Room Air 98.5 Labs: Labs: Laboratory Tests Test 12/01/18 21:04 12/01/18 21:10 12/02/18 00:30 12/02/18 03:15 White Blood Count 6.0 x10^3/uL (4.0-11.0) Red Blood Count 4.17 x10^6/uL (3.50-5.40) Hemoglobin 12.6 g/dL (12.0-15.5) Hematocrit 37.9 % (36.0-47.0) Mean Corpuscular Volume 91 fL (79-100) Mean Corpuscular Hemoglobin 30 pg (25-35) Mean Corpuscular Hemoglobin Concent 33 g/dL (31-37) Red Cell Distribution Width 15.5 % (11.5-14.5) Platelet Count 365 x10^3/uL (140-400) Neutrophils (%) (Auto) 55 % (31-73) Lymphocytes (%) (Auto) 35 % (24-48) Monocytes (%) (Auto) 8 % (0-9) Eosinophils (%) (Auto) 1 % (0-3) Basophils (%) (Auto) 1 % (0-3) Neutrophils # (Auto) 3.3 x10^3uL (1.8-7.7) Lymphocytes # (Auto) 2.1 x10^3/uL (1.0-4.8) Monocytes # (Auto) 0.5 x10^3/uL (0.0-1.1) Eosinophils # (Auto) 0.1 x10^3/uL (0.0-0.7) Basophils # (Auto) 0.0 x10^3/uL (0.0-0.2) Prothrombin Time 11.5 SEC (11.7-14.0) Prothromb Time International Ratio 0.9 (0.8-1.1) Sodium Level 136 mmol/L (136-145) 139 mmol/L (136-145) Potassium Level 3.2 mmol/L (3.5-5.1) 3.8 mmol/L (3.5-5.1) Chloride Level 96 mmol/L (98-107) 101 mmol/L (98-107) Carbon Dioxide Level 25 mmol/L (21-32) 23 mmol/L (21-32) Anion Gap 15 (6-14) 15 (6-14) Blood Urea Nitrogen 16 mg/dL (7-20) 15 mg/dL (7-20) Creatinine 1.2 mg/dL (0.6-1.0) 1.0 mg/dL (0.6-1.0) Estimated GFR (Cockcroft-Gault) 44.0 54.3 BUN/Creatinine Ratio 13 (6-20) Glucose Level 398 mg/dL (70-99) 275 mg/dL (70-99) Calcium Level 10.1 mg/dL (8.5-10.1) 9.8 mg/dL (8.5-10.1) Total Bilirubin 0.3 mg/dL (0.2-1.0) Aspartate Amino Transf (AST/SGOT) 19 U/L (15-37) Alanine Aminotransferase (ALT/SGPT) 22 U/L (14-59) Alkaline Phosphatase 139 U/L (46-116) Troponin I Quantitative < 0.017 ng/mL (0.000-0.055) < 0.017 ng/mL (0.000-0.055) < 0.017 ng/mL (0.000-0.055) Total Protein 7.8 g/dL (6.4-8.2) Albumin 3.9 g/dL (3.4-5.0) Albumin/Globulin Ratio 1.0 (1.0-1.7) Lipase 151 U/L (73-393) Urine Collection Type Unknown Urine Color Yellow Urine Clarity Clear Urine pH 6.5 Urine Specific Cement 1.015 Urine Protein Negative mg/dL (NEG-TRACE) Urine Glucose (UA) >=1000 mg/dL (NEG) Urine Ketones (Stick) Negative mg/dL (NEG) Urine Blood Negative (NEG) Urine Nitrite Negative (NEG) Urine Bilirubin Negative (NEG) Urine Urobilinogen Dipstick 0.2 mg/dL (0.2 mg/dL) Urine Leukocyte Esterase Trace (NEG) Urine RBC 0 /HPF (0-2) Urine WBC 1-4 /HPF (0-4) Urine Squamous Epithelial Cells Few /LPF Urine Bacteria 0 /HPF (0-FEW) Magnesium Level 2.0 mg/dL (1.8-2.4) Triglycerides Level 639 mg/dL (0-150) Cholesterol Level 254 mg/dL (0-200) LDL Cholesterol, Calculated mg/dL (0-100) VLDL Cholesterol, Calculated 128 mg/dL (0-40) Non-HDL Cholesterol Calculated 221 mg/dL (0-129) HDL Cholesterol 33 mg/dL (40-60) Cholesterol/HDL Ratio 7.7 Test 12/02/18 07:27 12/02/18 11:45 Glucose (Fingerstick) 223 mg/dL (70-99) 187 mg/dL (70-99) Allergies: Coded Allergies: Iodinated Contrast- Oral and IV Dye (Verified Allergy, Severe, Anaphylaxis, 05/27/18) Penicillins (Verified Allergy, Intermediate, 05/27/18) atenolol (Verified Allergy, Intermediate, TAKES METOPROLOL AT HOME, 05/27/18) erythromycin base (Verified Allergy, Intermediate, 05/27/18) iodine (Verified Allergy, Intermediate, 05/27/18) levofloxacin (Verified Allergy, Intermediate, 05/27/18) pregabalin (Verified Allergy, Intermediate, 05/27/16) Medications: Current Medications Medications (Trade) Dose Ordered Sig/Melanie Route PRN Reason Start Time Stop Time Status Last Admin Dose Admin Aspirin (Children'S Aspirin) 324 mg 1X ONCE PO 12/01/18 20:45 12/01/18 20:51 DC 12/01/18 21:33 Ondansetron HCl (Zofran) 4 mg 1X ONCE IV 12/01/18 21:00 12/01/18 21:01 DC 12/01/18 21:33 Potassium Chloride (KCl Oral Soln) 40 meq 1X ONCE PO 12/01/18 21:45 12/01/18 21:46 DC 12/01/18 22:11 Sodium Chloride 1,000 ml @ 75 mls/hr 1X ONCE IV 12/01/18 21:45 12/02/18 11:04 DC 12/01/18 22:12 Aspirin (Dev Aspirin) 81 mg DAILYWBKFT PO 12/02/18 08:00 12/02/18 09:20 Clopidogrel Bisulfate (Plavix) 75 mg DAILY PO 12/02/18 09:00 12/02/18 09:20 Cyanocobalamin (Vitamin B-12) 1,000 mcg DAILY PO 12/02/18 09:00 12/02/18 09:20 Dicyclomine HCl (Bentyl) 10 mg PRN Q6HRS PRN PO abdominal cramps 12/01/18 23:45 12/02/18 09:20 Insulin Human Lispro (HumaLOG) 10 units TIDAC SQ 12/02/18 07:30 12/02/18 12:00 Isosorbide Mononitrate (Imdur) 30 mg DAILY PO 12/02/18 09:00 12/02/18 09:21 Levetiracetam (Keppra) 1,000 mg BID PO 12/02/18 09:00 12/02/18 09:20 Levothyroxine Sodium (Synthroid) 75 mcg DAILY06 PO 12/02/18 06:00 12/02/18 06:00 Losartan Potassium (Cozaar) 50 mg DAILY PO 12/02/18 09:00 12/02/18 09:20 Multivitamins (Thera M Plus) 1 tab DAILY PO 12/02/18 09:00 12/02/18 09:20 Oxycodone HCl (Roxicodone) 10 mg PRN Q6HRS PRN PO PAIN 12/01/18 23:45 12/02/18 09:20 Insulin Human Lispro (HumaLOG) 0-7 UNITS TIDWMEALS SQ 12/02/18 08:00 12/02/18 11:59 Ondansetron HCl (Zofran Odt) 4 mg TIDAC PO 12/02/18 11:30 12/02/18 11:14 Metoclopramide HCl (Reglan) 10 mg QIDACHS PO 12/02/18 11:30 12/02/18 11:14 Lorazepam (Ativan) 1 mg PRN TID PRN PO ANXIETY / AGITATION 12/02/18 10:30 12/02/18 11:14 Pioglitazone HCl (Actos) 45 mg DAILY PO 12/02/18 12:00 12/02/18 11:14 Amlodipine Besylate (Norvasc) 5 mg DAILY PO 12/02/18 12:00 4/23/19 11:14 Perflutren Protein Type A Microsphe (Optison) 0.66 mg PRN 1X PRN IV SEE COMMENTS 12/02/18 13:15 12/03/18 13:14 12/02/18 13:36 Imaging: Imaging: CXR Impression: No active disease. PE: GEN: NAD HEENT: Atraumatic, PERRL LUNGS: CTAB HEART: RRR - sternal tenderness ABD: NABS, S/ND/NT EXTREMITY: No edema SKIN: No rashes, no jaundice NEURO/PSYCH: A & O 3, anxious A/P: A/P: Chest pain, n/v, diarrhea - better, tolerating PO, no stools today Gastroparesis, GERD CAD, IDDM CRC screen - UTD Diverticulosis, hemorrhoids S/p cholecystectomy Chronic pain, recent vertebroplasty -- Suspect hyperglycemia and chronic narcotic use contribute to n/v which contributes to chest pain. ?compliance Add PPI, change to Reglan susp. Observe for diarrhea. AMEENA CASTRO Dec 02, 2018 14:11
--- NOTE | 2018-12-02 14:58 | NUR ---
SS following for discharge planning. SS reviewed pt chart. Pt is from home with spouse and is currently on room air. No discharge needs noted at this time. SS will continue to follow for pending discharge needs.
[2018-12-02 15:00] VITALS: BP 143/60
--- NOTE | 2018-12-02 15:37 | CARD ---
MR#: [id number] Date of Study: 12/02/2018 Ordering Physician: JULITO MICHAEL, Referring Physician: DENICE IZAGUIRRE Tech: Karina Hager LAURA APPROVED REPORT EXAM: Two-dimensional and M-mode echocardiogram with Doppler and color Doppler. Other Information Quality : Technically LimitedHR: 79bpm Rhythm : NSRTechnically limited study due to breast implants. INDICATION Chest Pain Echo Enhancing Agent Indication: Endocardial border delineation Agent/Amount Used: Optison 1mL 2D DIMENSIONS RVDd4.2 (2.9-3.5cm)Left Atrium(2D)3.6 (1.6-4.0cm) IVSd1.3 (0.7-1.1cm)Aortic Root(2D)3.0 (2.0-3.7cm) LVDd3.7 (3.9-5.9cm)LVOT Diameter2.0 (1.8-2.4cm) PWd1.1 (0.7-1.1cm)LVDs2.9 (2.5-4.0cm) FS (%) 22.9 %SV27.6 ml LVEF(%)46.8 (>50%) M-Mode DIMENSIONS Left Atrium(MM)3.89 (2.5-4.0cm)Aortic Root3.27 (2.2-3.7cm) Aortic Valve AoV Peak Gregory.171.6cm/sAoV VTI26.6cm AO Peak GR.11.8mmHgLVOT VTI 10.92cm AO Mean GR.6mmHgAVA (VTI)1.40cm2 Mitral Valve MV E Atbalclp93.5cm/sMV E Peak Gr.6mmHg MV DECEL [id number] A Zdgekwyr88.0cm/s MV E Mean Gr.2mmHgE/A Ratio0.6 MV A [id number] Tricuspid Valve TR P. [id number]/sRAP [id number] TR Peak Gr.[id number] LEFT VENTRICLE The left ventricle is normal size. There is mild concentric left ventricular hypertrophy. The systoli c function is mildly impaired. The Ejection Fraction is 40-45%. The apical inferoseptum appears to be dyskinetic versus abnormal septal motion due to conduction defect. Due to technically very difficult images, wall motion could not be accurately determined. Tissue Doppler imaging reveals mild left adeola tricular diastolic dysfunction. RIGHT VENTRICLE Not well visualized. Grossly normal RV function. ATRIA The left atrium size is normal. The right atrium size is normal. The interatrial septum is intact wit h no evidence for an atrial septal defect or patent foramen ovale as noted on 2-D or Doppler imaging. AORTIC VALVE The aortic valve is mildly calcified. The aortic valve is trileaflet. Doppler and Color Flow revealed no significant aortic regurgitation. There is no significant aortic valvular stenosis. MITRAL VALVE Mitral annular calcification is moderate. There is no evidence of mitral valve prolapse. There is no mitral valve stenosis. Doppler and Color Flow revealed no mitral valve regurgitation noted. TRICUSPID VALVE Doppler and Color Flow revealed trace tricuspid regurgitation. The PA pressure was estimated at 19 mm Hg. There is no tricuspid valve prolapse or vegetation. There is no tricuspid valve stenosis. PULMONIC VALVE The pulmonic valve is not well visualized. GREAT VESSELS The aortic root is normal in size. The ascending aorta is normal in size. The IVC was not visualized. PERICARDIAL EFFUSION There is no evidence of significant pericardial effusion. Critical Notification Critical Value: No <Conclusion> The systolic function is mildly impaired. The Ejection Fraction is 40-45%. The apical inferoseptum appears to be dyskinetic versus abnormal septal motion due to conduction defe ct. Due to technically very difficult images, wall motion could not be accurately determined. Signed by : Antione Allen, Electronically Approved : 12/02/2018 15:36:13
[2018-12-02] MEDS: METOCLOPRAMIDE ORAL SOLN 10 MG/10 ML SOLUTION. PO SCH ×2 (15:56→20:34)
[2018-12-02 19:35] VITALS: BP 132/65
--- NOTE | 2018-12-02 19:35 | PDOC2 ---
NEUROLOGY CONSULT Date of Admission Date of Admission DATE: 12/02/18 TIME: 19:23 Reason for Consult Reason for Consult: IMPRESSION: Seizure. Chest pain. HTN. HLD. Hypertriglyceridemia, 639. DM. CAD s/p CABG. Vit B12 deficiency. Hypothyroidism. Right leg deformity, chronic. RECOMMENDATIONS/PLAN: EEG. Continue Keppra 1000 mg bid. Continue Plavix 75 mg daily. Continue Lipitor HS. Treat medical and cardiac diseases. HISTORY OF PRESENT ILLNESS This is a 73-y-old female patient with above medical diseases has symptoms vomiting and chest pain to be admitted for further evaluation. She has history of seizure for about 7 years about 405 seizures a year described as generalized convulsion. She has been treated with Keppra since. She a seizure yesterday on 12/01/18. She stated that her noted she was acting abnormally with confusion, incoherence, and shaking movements for several minutes but confusional state lasted longer. PAST MEDICAL HISTORY Cardiovascular: CAD, HTN, Hyperlipidemia Pulmonary: Bronchitis CENTRAL NERVOUS SYSTEM: Seizure GI: GERD, gastroparesis Heme/Onc: No pertinent hx Hepatobiliary: No pertinent hx Psych: No pertinent hx Musculoskeletal: low back pain, Osteoarthritis Rheumatologic: No pertinent hx Infectious disease: No pertinent hx Renal/: Chronic renal insuff, Other Endocrine: Diabetes PAST SURGICAL HISTORY Appendectomy, Cholecystectomy, CABG, LHC, PCI, Recent T6 vertebroplasty FAMILY HISTORY HTN. ALLERGIES Coded Allergies: Iodinated Contrast- Oral and IV Dye (Verified Allergy, Severe, Anaphylaxis, 05/27/18) Penicillins (Verified Allergy, Intermediate, 05/27/18) atenolol (Verified Allergy, Intermediate, TAKES METOPROLOL AT HOME, 05/27/18) erythromycin base (Verified Allergy, Intermediate, 05/27/18) iodine (Verified Allergy, Intermediate, 05/27/18) levofloxacin (Verified Allergy, Intermediate, 05/27/18) pregabalin (Verified Allergy, Intermediate, 05/27/16) MEDICATIONS: Refer to MAR SOCIAL HISTORY: Lives with her . Denies smoking, drinking, and illicit drug use. REVIEW OF SYSTEMS: Constitutional: No malnutrition, weight loss, cachexia. Head: Remote dull head injury. Skin: No edema, or rash. Ear: No infection. Eyes: No vision loss or color blindness. Nose: No bleeding or purulent discharges. Hearing: No hearing decrease. Neck: No injury. Breast: No history of cancer, masses,or discharges. Cardiac: CAD, s/p CABG, HTN, HLD. Pulmonary: No COPD. GI: GERD. Urinary/genital: UTI. Endocrinologic: Diabetes Mellitus. Skeletomuscular: No muscular atrophy, deformity. Neurological: see HP. Psychiatric: Denies drug use/abuse. Otherwise, not [id number] review of systems. PHYSICAL EXAMINATION: General appearance is in subacute distress. HEENT: Normocephalic and nontraumatic. Eyes, nose, ears, and throat are unremarkable. Neck is supple. No lymphadenopathy. No crepitus. Cardiovascular: S1, S2, regular rate and rhythm. Pulmonary: Clear to auscultation bilaterally. Abdomen: Bowel sounds are positive. Abdomen is soft, nontender, and nondistended. Extremities: No rash, lesions, or edema. No restriction of range of motion NEUROLOGICAL EXAMINATION: Alert Oriented to time, place and person. PERRL. EOMI. CN: no focal findings. Muscle tone: within normal. Muscle strength: 5 DTR: 2 Plantar reflex: Flexor response bilaterally Gait: not examined in bed. Sensory exam: no abnormal findings. No cerebellar signs elicited. F-T-N test accurate. Current Medications Current Medications Current Medications Aspirin (Children'S Aspirin) 324 mg 1X ONCE PO Last administered on 12/01/18at 21:33; Start 12/01/18 at 20:45; Stop 12/01/18 at 20:51; Status DC Ondansetron HCl (Zofran) 4 mg 1X ONCE IV Last administered on 12/01/18at 21:33; Start 12/01/18 at 21:00; Stop 12/01/18 at 21:01; Status DC Nitroglycerin (Nitrostat) 0.4 mg PRN Q5MIN PRN SL CHEST PAIN; Start 12/01/18 at 21:30; Stop 12/01/18 at 23:50; Status DC Potassium Chloride (KCl Oral Soln) 40 meq 1X ONCE PO Last administered on 12/01/18at 22:11; Start 12/01/18 at 21:45; Stop 12/01/18 at 21:46; Status DC Sodium Chloride 1,000 ml @ 75 mls/hr 1X ONCE IV Last administered on 12/01/18at 22:12; Start 12/01/18 at 21:45; Stop 12/02/18 at 11:04; Status DC Aspirin (Dev Aspirin) 81 mg DAILYWBKFT PO Last administered on 12/02/18 09:20; Start 12/02/18 at 08:00 Atorvastatin Calcium (Lipitor) 40 mg QHS PO ; Start 12/02/18 at 21:00 Clopidogrel Bisulfate (Plavix) 75 mg DAILY PO Last administered on 12/02/18 09:20; Start 12/02/18 at 09:00 Cyanocobalamin (Vitamin B-12) 1,000 mcg DAILY PO Last administered on 12/02/18 09:20; Start 12/02/18 at 09:00 Dicyclomine HCl (Bentyl) 10 mg PRN Q6HRS PRN PO abdominal cramps Last administered on 12/02/18 16:05; Start 12/01/18 at 23:45 Fentanyl (Duragesic 25mcg/ Hr Patch) 1 patch Q3DAYS TD ; Start 12/04/18 at 09:00 Insulin Glargine (Lantus) 18 units QHS SQ ; Start 12/02/18 at 21:00 Insulin Human Lispro (HumaLOG) 10 units TIDAC SQ Last administered on 12/02/18 17:11; Start 12/02/18 at 07:30 Isosorbide Mononitrate (Imdur) 30 mg DAILY PO Last administered on 12/02/18 09:21; Start 12/02/18 at 09:00 Levetiracetam (Keppra) 1,000 mg BID PO Last administered on 12/02/18 09:20; Start 12/02/18 at 09:00 Levothyroxine Sodium (Synthroid) 75 mcg DAILY06 PO Last administered on 12/02/18 06:00; Start 12/02/18 at 06:00 Losartan Potassium (Cozaar) 50 mg DAILY PO Last administered on 12/02/18 09:20; Start 12/02/18 at 09:00 Multivitamins (Thera M Plus) 1 tab DAILY PO Last administered on 12/02/18 09:20; Start 12/02/18 at 09:00 Nitroglycerin (Nitrostat) 0.4 mg PRN Q5MIN PRN SL CHEST PAIN; Start 12/01/18 at 23:45 Oxycodone HCl (Roxicodone) 10 mg PRN Q6HRS PRN PO MOD TO SEVERE PAIN Last administered on 12/02/18at 15:57; Start 12/01/18 at 23:45 Insulin Human Lispro (HumaLOG) 0-7 UNITS TIDWMEALS SQ Last administered on 12/02/18at 17:22; Start 12/02/18 at 08:00 Dextrose (Dextrose 50%-Water Syringe) 12.5 gm PRN Q15MIN PRN IV SEE COMMENTS; Start 12/01/18 at 23:45 Lorazepam (Ativan) 1 mg PRN Q6HRS PRN PO ANXIETY / AGITATION; Start 12/02/18 at 10:30; Stop 12/02/18 at 10:46; Status DC Ondansetron HCl (Zofran Odt) 4 mg PRN Q6HRS PRN PO NAUSEA/VOMITING; Start 12/02/18 at 10:30 Ondansetron HCl (Zofran Odt) 4 mg TIDAC PO Last administered on 12/02/18 15:56; Start 12/02/18 at 11:30 Metoclopramide HCl (Reglan) 10 mg QIDACHS PO Last administered on 12/02/18 11:14; Start 12/02/18 at 11:30; Stop 12/02/18 at 14:14; Status DC Lorazepam (Ativan) 1 mg PRN TID PRN PO ANXIETY / AGITATION Last administered on 12/02/18at 17:02; Start 12/02/18 at 10:30 Pioglitazone HCl (Actos) 45 mg DAILY PO Last administered on 12/02/18 11:14; Start 12/02/18 at 12:00 Amlodipine Besylate (Norvasc) 5 mg DAILY PO Last administered on 12/02/18 11:14; Start 12/02/18 at 12:00 Acetaminophen (Tylenol) 650 mg PRN Q6HRS PRN PO MILD PAIN / TEMP Last administered on 12/02/18 17:19; Start 12/02/18 at 10:30 Zolpidem Tartrate (Ambien) 5 mg PRN QHS PRN PO INSOMNIA; Start 12/02/18 at 10:30 Perflutren Protein Type A Microsphe (Optison) 0.66 mg PRN 1X PRN IV SEE COMMENTS Last administered on 12/02/18at 13:36; Start 12/02/18 at 13:15; Stop 12/03/18 at 13:14 Pantoprazole Sodium (Protonix) 40 mg DAILYAC PO ; Start 12/03/18 at 07:30 Metoclopramide HCl (Reglan Oral Solution) 10 mg QIDACHS PO Last administered on 12/02/18at 15:56; Start 12/02/18 at 16:30 Active Scripts Active Lantus Solostar (Insulin Glargine,Hum.rec.anlog) 100 Unit/1 Ml Insuln.pen 18 Units SQ QHS Humalog (Insulin Lispro) 100 Unit/1 Ml Insuln.pen 10 Units SQ TIDAC Cozaar (Losartan Potassium) 50 Mg Tablet 50 Mg PO DAILY Atorvastatin Calcium 40 Mg Tablet 40 Mg PO QHS Isosorbide Mononitrate Er (Isosorbide Mononitrate) 30 Mg Tab.er.24h 30 Mg PO DAILY Oxycodone Hcl Immed.release (Oxycodone Hcl) 10 Mg Tablet 10 Mg PO PRN Q6HRS PRN Thera-M Tablet (Multivits,Ca,Minerals/Iron/Fa) 1 Each Tablet 1 Tab PO DAILY 30 Days Vitamin B-12 (Cyanocobalamin (Vitamin B-12)) 1,000 Mcg Tablet 1,000 Mcg PO DAILY 30 Days Synthroid (Levothyroxine Sodium) 75 Mcg Tablet 75 Mcg PO DAILY07 30 Days Metoprolol Succinate 50 Mg Tab.er.24h 50 Mg PO DAILY 30 Days Dicyclomine Hcl 10 Mg Capsule 10 Mg PO PRN Q6HRS PRN 30 Days Vitamin B-12 (Cyanocobalamin (Vitamin B-12)) 1,000 Mcg Tablet 1,000 Mcg PO DAILY 30 Days Metoclopramide Hcl 10 Mg/10 Ml Solution 10 Mg PO TIDACHC 30 Days Aspirin 325 Mg Tablet 81 Mg PO DAILYWBKFT 30 Days Nitrostat (Nitroglycerin) 0.4 Mg Tab.subl 0.4 Mg SL PRN Q5MIN PRN 30 Days Atorvastatin Calcium 40 Mg Tablet 40 Mg PO QHS 30 Days Keppra (Levetiracetam) 500 Mg Tablet 1,000 Mg PO BID 30 Days [Pioglitazone Hcl] 15 MG Tablet 45 Mg PO DAILY Lorazepam 1 Mg Tablet 1 Mg PO PRN TID PRN Ondansetron Odt (Ondansetron) 4 Mg Tab.rapdis 4 Mg PO TIDAC FENTANYL 25mcg/hr (Fentanyl) 1 Each Patch.td72 1 Patch TD Q3DAYS Reported Ambien (Zolpidem Tartrate) 5 Mg Tablet 5 Mg PO HS Clopidogrel (Clopidogrel Bisulfate) 75 Mg Tablet 75 Mg PO DAILY Allergies Allergies: Allergies Coded Allergies Type Severity Reaction Last Updated Verified Iodinated Contrast- Oral and IV Dye Allergy Severe Anaphylaxis 05/27/18 Yes Penicillins Allergy Intermediate 05/27/18 Yes atenolol Allergy Intermediate TAKES METOPROLOL AT HOME 05/27/18 Yes erythromycin base Allergy Intermediate 05/27/18 Yes iodine Allergy Intermediate 05/27/18 Yes levofloxacin Allergy Intermediate 05/27/18 Yes pregabalin Allergy Intermediate 05/27/16 Yes ROS Review of System The patient denies any associated fevers, chills, headache, ear pain, rhinorrhea, sore throat, stiff neck, productive cough, chest pain, shortness of breath, back or flank pain, abdominal pain, nausea, vomiting, diarrhea, constipation, dysuria, rash, numbness, weakness, tingling, incontinence, difficulty ambulating, or diaphoresis. Physical Exam Physical Exam General: Well developed, well nourished, no acute distress, well appearing HEENT: Pupils equally round and reactive to light, EOMI, no discharge, normal conjunctiva Neck: Supple, no nuchal rigidity, no JVD, trachea midline, no tenderness Cardiac: RRR, no murmurs, no gallops, no rubs Chest/Lungs: CTAB, no wheeze, no rhonchi, no crackles Abdomen: soft, non-distended, no guarding, no peritoneal signs, non-tender Back: No tenderness Extremities: no edema, pulses intact, non-tender,capillary refill <3 sec bilateral upper and lower extremities, Neuro: Alert and oriented x 4, no focal deficits, normal speech Vitals Vitals: Vital Signs Date Time Temp Pulse Resp B/P (MAP) Pulse Ox O2 Delivery O2 Flow Rate FiO2 12/02/18 16:57 18 98 Room Air 12/02/18 15:00 98.0 81 143/60 (87) 98.0 Labs Labs Laboratory Tests Test 12/01/18 21:04 12/01/18 21:10 12/02/18 00:30 12/02/18 03:15 White Blood Count 6.0 x10^3/uL (4.0-11.0) Red Blood Count 4.17 x10^6/uL (3.50-5.40) Hemoglobin 12.6 g/dL (12.0-15.5) Hematocrit 37.9 % (36.0-47.0) Mean Corpuscular Volume 91 fL (79-100) Mean Corpuscular Hemoglobin 30 pg (25-35) Mean Corpuscular Hemoglobin Concent 33 g/dL (31-37) Red Cell Distribution Width 15.5 % (11.5-14.5) Platelet Count 365 x10^3/uL (140-400) Neutrophils (%) (Auto) 55 % (31-73) Lymphocytes (%) (Auto) 35 % (24-48) Monocytes (%) (Auto) 8 % (0-9) Eosinophils (%) (Auto) 1 % (0-3) Basophils (%) (Auto) 1 % (0-3) Neutrophils # (Auto) 3.3 x10^3uL (1.8-7.7) Lymphocytes # (Auto) 2.1 x10^3/uL (1.0-4.8) Monocytes # (Auto) 0.5 x10^3/uL (0.0-1.1) Eosinophils # (Auto) 0.1 x10^3/uL (0.0-0.7) Basophils # (Auto) 0.0 x10^3/uL (0.0-0.2) Prothrombin Time 11.5 SEC (11.7-14.0) Prothromb Time International Ratio 0.9 (0.8-1.1) Sodium Level 136 mmol/L (136-145) 139 mmol/L (136-145) Potassium Level 3.2 mmol/L (3.5-5.1) 3.8 mmol/L (3.5-5.1) Chloride Level 96 mmol/L (98-107) 101 mmol/L (98-107) Carbon Dioxide Level 25 mmol/L (21-32) 23 mmol/L (21-32) Anion Gap 15 (6-14) 15 (6-14) Blood Urea Nitrogen 16 mg/dL (7-20) 15 mg/dL (7-20) Creatinine 1.2 mg/dL (0.6-1.0) 1.0 mg/dL (0.6-1.0) Estimated GFR (Cockcroft-Gault) 44.0 54.3 BUN/Creatinine Ratio 13 (6-20) Glucose Level 398 mg/dL (70-99) 275 mg/dL (70-99) Calcium Level 10.1 mg/dL (8.5-10.1) 9.8 mg/dL (8.5-10.1) Total Bilirubin 0.3 mg/dL (0.2-1.0) Aspartate Amino Transf (AST/SGOT) 19 U/L (15-37) Alanine Aminotransferase (ALT/SGPT) 22 U/L (14-59) Alkaline Phosphatase 139 U/L (46-116) Troponin I Quantitative < 0.017 ng/mL (0.000-0.055) < 0.017 ng/mL (0.000-0.055) < 0.017 ng/mL (0.000-0.055) Total Protein 7.8 g/dL (6.4-8.2) Albumin 3.9 g/dL (3.4-5.0) Albumin/Globulin Ratio 1.0 (1.0-1.7) Lipase 151 U/L (73-393) Urine Collection Type Unknown Urine Color Yellow Urine Clarity Clear Urine pH 6.5 Urine Specific [place] 1.015 Urine Protein Negative mg/dL (NEG-TRACE) Urine Glucose (UA) >=1000 mg/dL (NEG) Urine Ketones (Stick) Negative mg/dL (NEG) Urine Blood Negative (NEG) Urine Nitrite Negative (NEG) Urine Bilirubin Negative (NEG) Urine Urobilinogen Dipstick 0.2 mg/dL (0.2 mg/dL) Urine Leukocyte Esterase Trace (NEG) Urine RBC 0 /HPF (0-2) Urine WBC 1-4 /HPF (0-4) Urine Squamous Epithelial Cells Few /LPF Urine Bacteria 0 /HPF (0-FEW) Magnesium Level 2.0 mg/dL (1.8-2.4) Triglycerides Level 639 mg/dL (0-150) Cholesterol Level 254 mg/dL (0-200) LDL Cholesterol, Calculated mg/dL (0-100) VLDL Cholesterol, Calculated 128 mg/dL (0-40) Non-HDL Cholesterol Calculated 221 mg/dL (0-129) HDL Cholesterol 33 mg/dL (40-60) Cholesterol/HDL Ratio 7.7 Vitamin B12 Level 316 pg/mL (247-911) Thyroid Stimulating Hormone (TSH) 4.207 uIU/mL (0.358-3.74) Test 12/02/18 07:27 12/02/18 11:45 12/02/18 16:57 Glucose (Fingerstick) 223 mg/dL (70-99) 187 mg/dL (70-99) 161 mg/dL (70-99) Laboratory Tests Test 12/01/18 21:04 12/01/18 21:10 12/02/18 00:30 12/02/18 03:15 White Blood Count 6.0 x10^3/uL (4.0-11.0) Red Blood Count 4.17 x10^6/uL (3.50-5.40) Hemoglobin 12.6 g/dL (12.0-15.5) Hematocrit 37.9 % (36.0-47.0) Mean Corpuscular Volume 91 fL (79-100) Mean Corpuscular Hemoglobin 30 pg (25-35) Mean Corpuscular Hemoglobin Concent 33 g/dL (31-37) Red Cell Distribution Width 15.5 % (11.5-14.5) Platelet Count 365 x10^3/uL (140-400) Neutrophils (%) (Auto) 55 % (31-73) Lymphocytes (%) (Auto) 35 % (24-48) Monocytes (%) (Auto) 8 % (0-9) Eosinophils (%) (Auto) 1 % (0-3) Basophils (%) (Auto) 1 % (0-3) Neutrophils # (Auto) 3.3 x10^3uL (1.8-7.7) Lymphocytes # (Auto) 2.1 x10^3/uL (1.0-4.8) Monocytes # (Auto) 0.5 x10^3/uL (0.0-1.1) Eosinophils # (Auto) 0.1 x10^3/uL (0.0-0.7) Basophils # (Auto) 0.0 x10^3/uL (0.0-0.2) Prothrombin Time 11.5 SEC (11.7-14.0) Prothromb Time International Ratio 0.9 (0.8-1.1) Sodium Level 136 mmol/L (136-145) 139 mmol/L (136-145) Potassium Level 3.2 mmol/L (3.5-5.1) 3.8 mmol/L (3.5-5.1) Chloride Level 96 mmol/L (98-107) 101 mmol/L (98-107) Carbon Dioxide Level 25 mmol/L (21-32) 23 mmol/L (21-32) Anion Gap 15 (6-14) 15 (6-14) Blood Urea Nitrogen 16 mg/dL (7-20) 15 mg/dL (7-20) Creatinine 1.2 mg/dL (0.6-1.0) 1.0 mg/dL (0.6-1.0) Estimated GFR (Cockcroft-Gault) 44.0 54.3 BUN/Creatinine Ratio 13 (6-20) Glucose Level 398 mg/dL (70-99) 275 mg/dL (70-99) Calcium Level 10.1 mg/dL (8.5-10.1) 9.8 mg/dL (8.5-10.1) Total Bilirubin 0.3 mg/dL (0.2-1.0) Aspartate Amino Transf (AST/SGOT) 19 U/L (15-37) Alanine Aminotransferase (ALT/SGPT) 22 U/L (14-59) Alkaline Phosphatase 139 U/L (46-116) Troponin I Quantitative < 0.017 ng/mL (0.000-0.055) < 0.017 ng/mL (0.000-0.055) < 0.017 ng/mL (0.000-0.055) Total Protein 7.8 g/dL (6.4-8.2) Albumin 3.9 g/dL (3.4-5.0) Albumin/Globulin Ratio 1.0 (1.0-1.7) Lipase 151 U/L (73-393) Urine Collection Type Unknown Urine Color Yellow Urine Clarity Clear Urine pH 6.5 Urine Specific [place] 1.015 Urine Protein Negative mg/dL (NEG-TRACE) Urine Glucose (UA) >=1000 mg/dL (NEG) Urine Ketones (Stick) Negative mg/dL (NEG) Urine Blood Negative (NEG) Urine Nitrite Negative (NEG) Urine Bilirubin Negative (NEG) Urine Urobilinogen Dipstick 0.2 mg/dL (0.2 mg/dL) Urine Leukocyte Esterase Trace (NEG) Urine RBC 0 /HPF (0-2) Urine WBC 1-4 /HPF (0-4) Urine Squamous Epithelial Cells Few /LPF Urine Bacteria 0 /HPF (0-FEW) Magnesium Level 2.0 mg/dL (1.8-2.4) Triglycerides Level 639 mg/dL (0-150) Cholesterol Level 254 mg/dL (0-200) LDL Cholesterol, Calculated mg/dL (0-100) VLDL Cholesterol, Calculated 128 mg/dL (0-40) Non-HDL Cholesterol Calculated 221 mg/dL (0-129) HDL Cholesterol 33 mg/dL (40-60) Cholesterol/HDL Ratio 7.7 Vitamin B12 Level 316 pg/mL (247-911) Thyroid Stimulating Hormone (TSH) 4.207 uIU/mL (0.358-3.74) Test 12/02/18 07:27 12/02/18 11:45 12/02/18 16:57 Glucose (Fingerstick) 223 mg/dL (70-99) 187 mg/dL (70-99) 161 mg/dL (70-99) RAVI NAGEL MD Dec 02, 2018 19:35
[2018-12-02] MEDS: ATORVASTATIN CALCIUM 40 MG TABLET. PO SCH (20:34)
[2018-12-02] MEDS: INSULIN GLARGINE 300 UNITS/3 ML INSULN.PEN. SQ SCH (20:40)
[2018-12-02] MEDS: ZOLPIDEM 5 MG TABLET. PO PRN (20:50)
[2018-12-02 23:24] VITALS: BP 131/67
[2018-12-03] VITALS (7 sets, daily range): BP systolic 129–194; BP diastolic 61–80
[2018-12-03] MEDS: LORazepam 1 MG TABLET PO PRN ×3 (03:01→17:50)
[2018-12-03 05:58] LABS: BASO # 0.1 x10^3/uL (0.0-0.2); BASO % 1 % (0-3); CALCIUM 9.6 mg/dL (8.5-10.1); CREATININE 1.1 mg/dL (0.6-1.0); EOS # 0.1 x10^3/uL (0.0-0.7); EOS % 2 % (0-3); GFR 48.7; HEMATOCRIT 36.9 % (36.0-47.0); HEMOGLOBIN 12.2 g/dL (12.0-15.5); LYMPH % 36 % (24-48); MEAN CORPUSCULAR HEMOGLOBIN 30 pg (25-35); MEAN CORPUSCULAR HGB CONC 33 g/dL (31-37); MEAN CORPUSCULAR VOLUME 92 fL (79-100); MONO # 0.4 x10^3/uL (0.0-1.1); MONO % 7 % (0-9); NEUT % 55 % (31-73); PLATELET COUNT 356 x10^3/uL (140-400); POTASSIUM 3.5 mmol/L (3.5-5.1); RED BLOOD COUNT 4.01 x10^6/uL (3.50-5.40); RED CELL DISTRIBUTION WIDTH 15.4 % (11.5-14.5); WHITE BLOOD COUNT 5.6 x10^3/uL (4.0-11.0)
[2018-12-03] MEDS: PANTOPRAZOLE 40 MG TABLET.DR. PO SCH (06:11)
[2018-12-03] MEDS: LEVOTHYROXINE 75 MCG TABLET PO SCH (06:11)
[2018-12-03] MEDS: ONDANSETRON ODT 4 MG TAB.RAPDIS. PO SCH ×3 (06:11→17:13)
[2018-12-03] MEDS: METOCLOPRAMIDE ORAL SOLN 10 MG/10 ML SOLUTION. PO SCH ×4 (06:12→21:38)
[2018-12-03] MEDS: oxyCODONE IR 5 MG TABLET PO PRN ×3 (06:12→17:50)
[2018-12-03] MEDS: PIOGLITAZONE 15 MG TABLET. PO SCH (08:54)
[2018-12-03] MEDS: CLOPIDOGREL BISULFATE 75 MG TABLET PO SCH (08:55)
[2018-12-03] MEDS: CYANOCOBALAMIN (VITAMIN B-12) 1,000 MCG TABLET. PO SCH (08:55)
[2018-12-03] MEDS: levETIRAcetam 500 MG TABLET PO SCH ×2 (08:55→21:37)
[2018-12-03] MEDS: ISOSORBIDE MONONITRATE ER 30 MG TAB.ER.24H PO SCH (08:55)
[2018-12-03] MEDS: ASPIRIN 325 MG TABLET PO SCH (08:55)
[2018-12-03] MEDS: MULTIVITAMIN with MINERAL TABLET. PO SCH (08:56)
[2018-12-03] MEDS: LOSARTAN POTASSIUM 50 MG TABLET. PO SCH (08:56)
[2018-12-03] MEDS: amLODIPine BESYLATE 5 MG TABLET PO SCH (08:56)
[2018-12-03] MEDS: INSULIN LISPRO 300 UNITS/3 ML INSULN.PEN. SQ SCH ×6 (09:02→17:17)
--- NOTE | 2018-12-03 10:43 | PDOC ---
Subjective: Subjective: Not much better, eating "very little" but not vomiting. Objective: Objective: No stools charted. Vital Signs: Vital Signs Date Time Temp Pulse Resp B/P (MAP) Pulse Ox O2 Delivery O2 Flow Rate FiO2 12/03/18 08:56 75 12/03/18 07:33 98.2 18 138/66 (90) 93 Room Air 98.2 Labs: Laboratory Tests Test 12/02/18 11:45 12/02/18 16:57 12/02/18 20:24 12/03/18 04:25 Glucose (Fingerstick) 187 mg/dL 161 mg/dL 155 mg/dL White Blood Count 5.6 x10^3/uL Red Blood Count 4.01 x10^6/uL Hemoglobin 12.2 g/dL Hematocrit 36.9 % Mean Corpuscular Volume 92 fL Mean Corpuscular Hemoglobin 30 pg Mean Corpuscular Hemoglobin Concent 33 g/dL Red Cell Distribution Width 15.4 % Platelet Count 356 x10^3/uL Neutrophils (%) (Auto) 55 % Lymphocytes (%) (Auto) 36 % Monocytes (%) (Auto) 7 % Eosinophils (%) (Auto) 2 % Basophils (%) (Auto) 1 % Neutrophils # (Auto) 3.0 x10^3uL Lymphocytes # (Auto) 2.0 x10^3/uL Monocytes # (Auto) 0.4 x10^3/uL Eosinophils # (Auto) 0.1 x10^3/uL Basophils # (Auto) 0.1 x10^3/uL Sodium Level 137 mmol/L Potassium Level 3.5 mmol/L Chloride Level 101 mmol/L Carbon Dioxide Level 24 mmol/L Anion Gap 12 Blood Urea Nitrogen 24 mg/dL Creatinine 1.1 mg/dL Estimated GFR (Cockcroft-Gault) 48.7 Glucose Level 246 mg/dL Calcium Level 9.6 mg/dL Test 12/03/18 08:35 Glucose (Fingerstick) 215 mg/dL Imaging: Echocardiogram <Conclusion> The systolic function is mildly impaired. The Ejection Fraction is 40-45%. The apical inferoseptum appears to be dyskinetic versus abnormal septal motion due to conduction defect. Due to technically very difficult images, wall motion could not be accurately determined. PE: GEN: NAD - in room w/ staff, taking a sponge bath LUNGS: room air NEURO/PSYCH: A & O 3 - looks and acts like she feels better A/P: Chest pain, n/v, diarrhea - better, h/o gastroparesis, GERD, also CAD and DM -- Seems better today. Continue Reglan susp and PPI. AMEENA CASTRO Dec 03, 2018 10:43
[2018-12-03] MEDS ORDERED: fentaNYL 25MCG/HR PATCH 1 PATCH PATCH.TD72 TD SCH (11:00)
--- NOTE | 2018-12-03 12:24 | EEG ---
DATE OF SERVICE: 12/03/2018 EEG NUMBER: [id number]. OBJECTIVE: This is a 73-year-old female patient with history of seizure. She was reportedly to have a seizure the day before admission. EEG was requested to evaluate seizure activity. METHODS: Twenty electrodes were applied according to the international 10-20 electrode placement system. EKG monitoring, hyperventilation, intermittent photic stimulation, monopolar and bipolar montages are routinely utilized. The record was obtained on a digital system with video monitoring. MEDICATION: Keppra. FINDINGS: 1. Background: The patient was recorded in the awake, drowsy and sleep states. The overall background amplitude is 10-20 microvolts. A posterior dominant rhythm of 6-8 Hz is observed. 2. Abnormalities: No specific epileptiform discharge or electrographic seizure is seen. No focal or diffuse slowing. 3. Activation: Hyperventilation was performed with fair efforts and normal response. Intermittent photic stimulation was performed with photic driving. No specific epileptiform discharge or electrographic seizure induced by hyperventilation or intermittent photic stimulation. IMPRESSION: This EEG is a mildly abnormal study for the awake, drowsy and sleep states. The posterior dominant rhythm of 6-8 Hz is mildly slow for age. No focal, lateralizing, specific epileptiform discharge, or electrographic seizure is seen. RAVI NAGEL MD DR: LUCRECIA/mandy JOB#: [id number] / [id number] RADHA
--- NOTE | 2018-12-03 13:06 | PDOC ---
PROGRESS NOTES Assessment Assessment Seizure. Chest pain. HTN. HLD. Hypertriglyceridemia, 639. DM. CAD s/p CABG. Vit B12 deficiency. Hypothyroidism. Right leg deformity, chronic. RECOMMENDATIONS/PLAN: Continue Keppra 1000 mg bid. Continue Plavix 75 mg daily. Continue Lipitor HS. Treat medical and cardiac diseases. EEG on 12/03/18: No epileptiform discharges. The posterior dominant rhyme is 6-8 Hz/s that is mildly slow for age. HISTORY OF PRESENT ILLNESS This is a 73-y-old female patient with above medical diseases has symptoms vomiting and chest pain to be admitted for further evaluation. She has history of seizure for about 7 years about 405 seizures a year described as generalized convulsion. She has been treated with Keppra since. She a seizure yesterday on 12/01/18. She stated that her noted she was acting abnormally with confusion, incoherence, and shaking movements for several minutes but confusion al state lasted longer. No seizures since here. PAST MEDICAL HISTORY Cardiovascular: CAD, HTN, Hyperlipidemia Pulmonary: Bronchitis CENTRAL NERVOUS SYSTEM: Seizure GI: GERD, gastroparesis Heme/Onc: No pertinent hx Hepatobiliary: No pertinent hx Psych: No pertinent hx Musculoskeletal: low back pain, Osteoarthritis Rheumatologic: No pertinent hx Infectious disease: No pertinent hx Renal/: Chronic renal insuff, Other Endocrine: Diabetes PAST SURGICAL HISTORY Appendectomy, Cholecystectomy, CABG, LHC, PCI, Recent T6 vertebroplasty FAMILY HISTORY HTN. ALLERGIES Coded Allergies: Iodinated Contrast- Oral and IV Dye (Verified Allergy, Severe, Anaphylaxis, 05/27/18) Penicillins (Verified Allergy, Intermediate, 05/27/18) atenolol (Verified Allergy, Intermediate, TAKES METOPROLOL AT HOME, 05/27/18) erythromycin base (Verified Allergy, Intermediate, 05/27/18) iodine (Verified Allergy, Intermediate, 05/27/18) levofloxacin (Verified Allergy, Intermediate, 05/27/18) pregabalin (Verified Allergy, Intermediate, 05/27/16) MEDICATIONS: Refer to [facility] SOCIAL HISTORY: Lives with her . Denies smoking, drinking, and illicit drug use. REVIEW OF SYSTEMS: Constitutional: No malnutrition, weight loss, cachexia. Head: Remote dull head injury. Skin: No edema, or rash. Ear: No infection. Eyes: No vision loss or color blindness. Nose: No bleeding or purulent discharges. Hearing: No hearing decrease. Neck: No injury. Breast: No history of cancer, masses,or discharges. Cardiac: CAD, s/p CABG, HTN, HLD. Pulmonary: No COPD. GI: GERD. Urinary/genital: UTI. Endocrinologic: Diabetes Mellitus. Skeletomuscular: No muscular atrophy, deformity. Neurological: see HP. Psychiatric: Denies drug use/abuse. Otherwise, not [id number] review of systems. PHYSICAL EXAMINATION: General appearance is in subacute distress. HEENT: Normocephalic and nontraumatic. Eyes, nose, ears, and throat are unremarkable. Neck is supple. No lymphadenopathy. No crepitus. Cardiovascular: S1, S2, regular rate and rhythm. Pulmonary: Clear to auscultation bilaterally. Abdomen: Bowel sounds are positive. Abdomen is soft, nontender, and nondistended. Extremities: No rash, lesions, or edema. No restriction of range of motion NEUROLOGICAL EXAMINATION: Alert Oriented to time, place and person. PERRL. EOMI. CN: no focal findings. Muscle tone: within normal. Muscle strength: 5 DTR: 2 Plantar reflex: Flexor response bilaterally Gait: not examined in bed. Sensory exam: no abnormal findings. No cerebellar signs elicited. F-T-N test accurate. Objective Objective Vital Signs Date Time Temp Pulse Resp B/P (MAP) Pulse Ox O2 Delivery O2 Flow Rate FiO2 12/03/18 12:19 129/63 (85) 12/03/18 10:55 98.2 73 16 98 Room Air 98.2 Intake and Output 12/03/18 07:00 Intake Total 1460 ml Output Total 550 ml Balance 910 ml Intake Oral 1460 ml Output Urine Total 550 ml # Voids 5 Vitals Signs Vitals VS - Last 72 Hours, by Label Date Time Temp Pulse Resp B/P (MAP) Pulse Ox O2 Delivery O2 Flow Rate FiO2 12/03/18 12:19 129/63 (85) 12/03/18 10:55 98.2 73 16 194/80 (118) 98 Room Air 98.2 12/03/18 08:56 75 12/03/18 08:56 75 12/03/18 08:55 75 12/03/18 08:05 Room Air 12/03/18 07:33 98.2 77 18 138/66 (90) 93 Room Air 98.2 12/03/18 06:12 16 96 Room Air 12/03/18 02:53 97.9 70 18 141/67 (91) 96 Room Air 97.9 12/02/18 23:56 16 100 Room Air 12/02/18 23:24 98.0 67 16 131/67 (88) 100 Room Air 98.0 12/02/18 22:56 16 Room Air 12/02/18 19:35 97.6 73 16 132/65 (87) 94 Room Air 97.6 12/02/18 19:30 Room Air 12/02/18 15:57 18 Room Air 12/02/18 15:00 98.0 81 20 143/60 (87) 98 Room Air 98.0 12/02/18 11:14 65 159/78 12/02/18 11:00 98.5 82 20 131/71 (91) 97 Room Air 98.5 12/02/18 09:21 65 159/78 12/02/18 09:20 18 Room Air 12/02/18 09:20 65 159/78 12/02/18 08:00 Room Air 12/02/18 07:00 97.6 65 22 159/78 (105) 92 Room Air 97.6 Laboratory Laboratory Laboratory Tests Test 12/02/18 16:57 12/02/18 20:24 12/03/18 04:25 12/03/18 08:35 Glucose (Fingerstick) 161 mg/dL (70-99) 155 mg/dL (70-99) 215 mg/dL (70-99) White Blood Count 5.6 x10^3/uL (4.0-11.0) Red Blood Count 4.01 x10^6/uL (3.50-5.40) Hemoglobin 12.2 g/dL (12.0-15.5) Hematocrit 36.9 % (36.0-47.0) Mean Corpuscular Volume 92 fL (79-100) Mean Corpuscular Hemoglobin 30 pg (25-35) Mean Corpuscular Hemoglobin Concent 33 g/dL (31-37) Red Cell Distribution Width 15.4 % (11.5-14.5) Platelet Count 356 x10^3/uL (140-400) Neutrophils (%) (Auto) 55 % (31-73) Lymphocytes (%) (Auto) 36 % (24-48) Monocytes (%) (Auto) 7 % (0-9) Eosinophils (%) (Auto) 2 % (0-3) Basophils (%) (Auto) 1 % (0-3) Neutrophils # (Auto) 3.0 x10^3uL (1.8-7.7) Lymphocytes # (Auto) 2.0 x10^3/uL (1.0-4.8) Monocytes # (Auto) 0.4 x10^3/uL (0.0-1.1) Eosinophils # (Auto) 0.1 x10^3/uL (0.0-0.7) Basophils # (Auto) 0.1 x10^3/uL (0.0-0.2) Sodium Level 137 mmol/L (136-145) Potassium Level 3.5 mmol/L (3.5-5.1) Chloride Level 101 mmol/L (98-107) Carbon Dioxide Level 24 mmol/L (21-32) Anion Gap 12 (6-14) Blood Urea Nitrogen 24 mg/dL (7-20) Creatinine 1.1 mg/dL (0.6-1.0) Estimated GFR (Cockcroft-Gault) 48.7 Glucose Level 246 mg/dL (70-99) Calcium Level 9.6 mg/dL (8.5-10.1) Test 12/03/18 11:26 Glucose (Fingerstick) 161 mg/dL (70-99) Medication Medications Current Medications Atorvastatin Calcium (Lipitor) 40 mg QHS PO Last administered on 12/02/18 20:34; Start 12/02/18 at 21:00 Fentanyl (Duragesic 25mcg/ Hr Patch) 1 patch Q3DAYS TD Last administered on 12/03/18 12:00; Start 12/03/18 at 11:00 Insulin Glargine (Lantus) 18 units QHS SQ Last administered on 12/02/18 20:40; Start 12/02/18 at 21:00 Metoclopramide HCl (Reglan Oral Solution) 10 mg QIDACHS PO Last administered on 12/03/18 12:00; Start 12/02/18 at 16:30 Pantoprazole Sodium (Protonix) 40 mg DAILYAC PO Last administered on 12/03/18at 06:11; Start 12/03/18 at 07:30 Perflutren Protein Type A Microsphe (Optison) 0.66 mg PRN 1X PRN IV SEE COMMENTS Last administered on 12/02/18at 13:36; Start 12/02/18 at 13:15; Stop 12/03/18 at 13:14 Comment Review of Relevant I have reviewed the following items maldonado (where applicable) has been applied. RAVI NAGEL MD Dec 03, 2018 13:06
--- NOTE | 2018-12-03 14:59 | PDOC ---
PROGRESS NOTES Subjective Subjective seen earlier today. feels better. less vomiting. notes that she drinks lots of cola at home. echo showed a LVEF 40-45% and EEG showed no seizure activity. blood sugars reviewed. Objective Objective Vital Signs Date Time Temp Pulse Resp B/P (MAP) Pulse Ox O2 Delivery O2 Flow Rate FiO2 12/03/18 12:19 129/63 (85) 12/03/18 10:55 98.2 73 16 98 Room Air 98.2 Intake and Output 12/03/18 07:00 Intake Total 1460 ml Output Total 550 ml Balance 910 ml Intake Oral 1460 ml Output Urine Total 550 ml # Voids 5 Physical Exam Abdomen: Soft Heart: Regular rate, Normal S1, Normal S2 Extremities: No edema General: Alert HEENT: Atraumatic Lungs: Clear to auscultation Neuro: Normal speech Psych/Mental Status: Mental status NL Skin: No rashes Assessment Assessment Problems1. Atypical chest pain 2. Diabetic gastroparesis. 3. Diabetes mellitus type 2, on insulin with hyperglycemia. 4. Hypertension. 5. Hyperlipidemia. 6. Coronary artery disease. 7. Osteoporosis. 8. Chronic pain. seizure disorder cardiomyopathy. LVEF 40-45% Medical Problems: (1) Chest pain Status: Acute Plan Plan of Care continue reglan and protonix continue zofran anticipate dismissal tomorrow Comment Review of Relevant I have reviewed the following items maldonado (where applicable) has been applied. Labs Laboratory Tests Test 12/01/18 21:04 12/01/18 21:10 12/02/18 00:30 12/02/18 03:15 White Blood Count 6.0 x10^3/uL (4.0-11.0) Red Blood Count 4.17 x10^6/uL (3.50-5.40) Hemoglobin 12.6 g/dL (12.0-15.5) Hematocrit 37.9 % (36.0-47.0) Mean Corpuscular Volume 91 fL (79-100) Mean Corpuscular Hemoglobin 30 pg (25-35) Mean Corpuscular Hemoglobin Concent 33 g/dL (31-37) Red Cell Distribution Width 15.5 % (11.5-14.5) Platelet Count 365 x10^3/uL (140-400) Neutrophils (%) (Auto) 55 % (31-73) Lymphocytes (%) (Auto) 35 % (24-48) Monocytes (%) (Auto) 8 % (0-9) Eosinophils (%) (Auto) 1 % (0-3) Basophils (%) (Auto) 1 % (0-3) Neutrophils # (Auto) 3.3 x10^3uL (1.8-7.7) Lymphocytes # (Auto) 2.1 x10^3/uL (1.0-4.8) Monocytes # (Auto) 0.5 x10^3/uL (0.0-1.1) Eosinophils # (Auto) 0.1 x10^3/uL (0.0-0.7) Basophils # (Auto) 0.0 x10^3/uL (0.0-0.2) Prothrombin Time 11.5 SEC (11.7-14.0) Prothromb Time International Ratio 0.9 (0.8-1.1) Sodium Level 136 mmol/L (136-145) 139 mmol/L (136-145) Potassium Level 3.2 mmol/L (3.5-5.1) 3.8 mmol/L (3.5-5.1) Chloride Level 96 mmol/L (98-107) 101 mmol/L (98-107) Carbon Dioxide Level 25 mmol/L (21-32) 23 mmol/L (21-32) Anion Gap 15 (6-14) 15 (6-14) Blood Urea Nitrogen 16 mg/dL (7-20) 15 mg/dL (7-20) Creatinine 1.2 mg/dL (0.6-1.0) 1.0 mg/dL (0.6-1.0) Estimated GFR (Cockcroft-Gault) 44.0 54.3 BUN/Creatinine Ratio 13 (6-20) Glucose Level 398 mg/dL (70-99) 275 mg/dL (70-99) Calcium Level 10.1 mg/dL (8.5-10.1) 9.8 mg/dL (8.5-10.1) Total Bilirubin 0.3 mg/dL (0.2-1.0) Aspartate Amino Transf (AST/SGOT) 19 U/L (15-37) Alanine Aminotransferase (ALT/SGPT) 22 U/L (14-59) Alkaline Phosphatase 139 U/L (46-116) Troponin I Quantitative < 0.017 ng/mL (0.000-0.055) < 0.017 ng/mL (0.000-0.055) < 0.017 ng/mL (0.000-0.055) Total Protein 7.8 g/dL (6.4-8.2) Albumin 3.9 g/dL (3.4-5.0) Albumin/Globulin Ratio 1.0 (1.0-1.7) Lipase 151 U/L (73-393) Urine Collection Type Unknown Urine Color Yellow Urine Clarity Clear Urine pH 6.5 Urine Specific Carnation 1.015 Urine Protein Negative mg/dL (NEG-TRACE) Urine Glucose (UA) >=1000 mg/dL (NEG) Urine Ketones (Stick) Negative mg/dL (NEG) Urine Blood Negative (NEG) Urine Nitrite Negative (NEG) Urine Bilirubin Negative (NEG) Urine Urobilinogen Dipstick 0.2 mg/dL (0.2 mg/dL) Urine Leukocyte Esterase Trace (NEG) Urine RBC 0 /HPF (0-2) Urine WBC 1-4 /HPF (0-4) Urine Squamous Epithelial Cells Few /LPF Urine Bacteria 0 /HPF (0-FEW) Magnesium Level 2.0 mg/dL (1.8-2.4) Triglycerides Level 639 mg/dL (0-150) Cholesterol Level 254 mg/dL (0-200) LDL Cholesterol, Calculated mg/dL (0-100) VLDL Cholesterol, Calculated 128 mg/dL (0-40) Non-HDL Cholesterol Calculated 221 mg/dL (0-129) HDL Cholesterol 33 mg/dL (40-60) Cholesterol/HDL Ratio 7.7 Vitamin B12 Level 316 pg/mL (247-911) Thyroid Stimulating Hormone (TSH) 4.207 uIU/mL (0.358-3.74) Test 12/02/18 07:27 12/02/18 11:45 12/02/18 16:57 12/02/18 20:24 Glucose (Fingerstick) 223 mg/dL (70-99) 187 mg/dL (70-99) 161 mg/dL (70-99) 155 mg/dL (70-99) Test 12/03/18 04:25 12/03/18 08:35 12/03/18 11:26 White Blood Count 5.6 x10^3/uL (4.0-11.0) Red Blood Count 4.01 x10^6/uL (3.50-5.40) Hemoglobin 12.2 g/dL (12.0-15.5) Hematocrit 36.9 % (36.0-47.0) Mean Corpuscular Volume 92 fL (79-100) Mean Corpuscular Hemoglobin 30 pg (25-35) Mean Corpuscular Hemoglobin Concent 33 g/dL (31-37) Red Cell Distribution Width 15.4 % (11.5-14.5) Platelet Count 356 x10^3/uL (140-400) Neutrophils (%) (Auto) 55 % (31-73) Lymphocytes (%) (Auto) 36 % (24-48) Monocytes (%) (Auto) 7 % (0-9) Eosinophils (%) (Auto) 2 % (0-3) Basophils (%) (Auto) 1 % (0-3) Neutrophils # (Auto) 3.0 x10^3uL (1.8-7.7) Lymphocytes # (Auto) 2.0 x10^3/uL (1.0-4.8) Monocytes # (Auto) 0.4 x10^3/uL (0.0-1.1) Eosinophils # (Auto) 0.1 x10^3/uL (0.0-0.7) Basophils # (Auto) 0.1 x10^3/uL (0.0-0.2) Sodium Level 137 mmol/L (136-145) Potassium Level 3.5 mmol/L (3.5-5.1) Chloride Level 101 mmol/L (98-107) Carbon Dioxide Level 24 mmol/L (21-32) Anion Gap 12 (6-14) Blood Urea Nitrogen 24 mg/dL (7-20) Creatinine 1.1 mg/dL (0.6-1.0) Estimated GFR (Cockcroft-Gault) 48.7 Glucose Level 246 mg/dL (70-99) Calcium Level 9.6 mg/dL (8.5-10.1) Glucose (Fingerstick) 215 mg/dL (70-99) 161 mg/dL (70-99) Laboratory Tests Test 12/02/18 16:57 12/02/18 20:24 12/03/18 04:25 12/03/18 08:35 Glucose (Fingerstick) 161 mg/dL (70-99) 155 mg/dL (70-99) 215 mg/dL (70-99) White Blood Count 5.6 x10^3/uL (4.0-11.0) Red Blood Count 4.01 x10^6/uL (3.50-5.40) Hemoglobin 12.2 g/dL (12.0-15.5) Hematocrit 36.9 % (36.0-47.0) Mean Corpuscular Volume 92 fL (79-100) Mean Corpuscular Hemoglobin 30 pg (25-35) Mean Corpuscular Hemoglobin Concent 33 g/dL (31-37) Red Cell Distribution Width 15.4 % (11.5-14.5) Platelet Count 356 x10^3/uL (140-400) Neutrophils (%) (Auto) 55 % (31-73) Lymphocytes (%) (Auto) 36 % (24-48) Monocytes (%) (Auto) 7 % (0-9) Eosinophils (%) (Auto) 2 % (0-3) Basophils (%) (Auto) 1 % (0-3) Neutrophils # (Auto) 3.0 x10^3uL (1.8-7.7) Lymphocytes # (Auto) 2.0 x10^3/uL (1.0-4.8) Monocytes # (Auto) 0.4 x10^3/uL (0.0-1.1) Eosinophils # (Auto) 0.1 x10^3/uL (0.0-0.7) Basophils # (Auto) 0.1 x10^3/uL (0.0-0.2) Sodium Level 137 mmol/L (136-145) Potassium Level 3.5 mmol/L (3.5-5.1) Chloride Level 101 mmol/L (98-107) Carbon Dioxide Level 24 mmol/L (21-32) Anion Gap 12 (6-14) Blood Urea Nitrogen 24 mg/dL (7-20) Creatinine 1.1 mg/dL (0.6-1.0) Estimated GFR (Cockcroft-Gault) 48.7 Glucose Level 246 mg/dL (70-99) Calcium Level 9.6 mg/dL (8.5-10.1) Test 12/03/18 11:26 Glucose (Fingerstick) 161 mg/dL (70-99) Medications Current Medications Aspirin (Children'S Aspirin) 324 mg 1X ONCE PO Last administered on 12/01/18 21:33; Start 12/01/18 at 20:45; Stop 12/01/18 at 20:51; Status DC Ondansetron HCl (Zofran) 4 mg 1X ONCE IV Last administered on 12/01/18 21:33; Start 12/01/18 at 21:00; Stop 12/01/18 at 21:01; Status DC Nitroglycerin (Nitrostat) 0.4 mg PRN Q5MIN PRN SL CHEST PAIN; Start 12/01/18 at 21:30; Stop 12/01/18 at 23:50; Status DC Potassium Chloride (KCl Oral Soln) 40 meq 1X ONCE PO Last administered on 12/01/18 22:11; Start 12/01/18 at 21:45; Stop 12/01/18 at 21:46; Status DC Sodium Chloride 1,000 ml @ 75 mls/hr 1X ONCE IV Last administered on 12/01/18 22:12; Start 12/01/18 at 21:45; Stop 12/02/18 at 11:04; Status DC Aspirin (Dev Aspirin) 81 mg DAILYWBKFT PO Last administered on 12/03/18 08:55; Start 12/02/18 at 08:00 Atorvastatin Calcium (Lipitor) 40 mg QHS PO Last administered on 12/02/18 20:34; Start 12/02/18 at 21:00 Clopidogrel Bisulfate (Plavix) 75 mg DAILY PO Last administered on 12/03/18 08:55; Start 12/02/18 at 09:00 Cyanocobalamin (Vitamin B-12) 1,000 mcg DAILY PO Last administered on 12/03/18 08:55; Start 12/02/18 at 09:00 Dicyclomine HCl (Bentyl) 10 mg PRN Q6HRS PRN PO abdominal cramps Last administered on 12/02/18 16:05; Start 12/01/18 at 23:45 Fentanyl (Duragesic 25mcg/ Hr Patch) 1 patch Q3DAYS TD Last administered on 12/03/18at 12:00; Start 12/03/18 at 11:00 Insulin Glargine (Lantus) 18 units QHS SQ Last administered on 12/02/18 20:40; Start 12/02/18 at 21:00 Insulin Human Lispro (HumaLOG) 10 units TIDAC SQ Last administered on 12/03/18 12:04; Start 12/02/18 at 07:30 Isosorbide Mononitrate (Imdur) 30 mg DAILY PO Last administered on 12/03/18 08:55; Start 12/02/18 at 09:00 Levetiracetam (Keppra) 1,000 mg BID PO Last administered on 12/03/18 08:55; Start 12/02/18 at 09:00 Levothyroxine Sodium (Synthroid) 75 mcg DAILY06 PO Last administered on 12/03/18 06:11; Start 12/02/18 at 06:00 Losartan Potassium (Cozaar) 50 mg DAILY PO Last administered on 12/03/18 08:56; Start 12/02/18 at 09:00 Multivitamins (Thera M Plus) 1 tab DAILY PO Last administered on 12/03/18 08:56; Start 12/02/18 at 09:00 Nitroglycerin (Nitrostat) 0.4 mg PRN Q5MIN PRN SL CHEST PAIN; Start 12/01/18 at 23:45 Oxycodone HCl (Roxicodone) 10 mg PRN Q6HRS PRN PO MOD TO SEVERE PAIN Last administered on 12/03/18 12:00; Start 12/01/18 at 23:45 Insulin Human Lispro (HumaLOG) 0-7 UNITS TIDWMEALS SQ Last administered on 12/03/18 09:02; Start 12/02/18 at 08:00 Dextrose (Dextrose 50%-Water Syringe) 12.5 gm PRN Q15MIN PRN IV SEE COMMENTS; Start 12/01/18 at 23:45 Lorazepam (Ativan) 1 mg PRN Q6HRS PRN PO ANXIETY / AGITATION; Start 12/02/18 at 10:30; Stop 12/02/18 at 10:46; Status DC Ondansetron HCl (Zofran Odt) 4 mg PRN Q6HRS PRN PO NAUSEA/VOMITING; Start 12/02/18 at 10:30 Ondansetron HCl (Zofran Odt) 4 mg TIDAC PO Last administered on 12/03/18 12:00; Start 12/02/18 at 11:30 Metoclopramide HCl (Reglan) 10 mg QIDACHS PO Last administered on 12/02/18 11:14; Start 12/02/18 at 11:30; Stop 12/02/18 at 14:14; Status DC Lorazepam (Ativan) 1 mg PRN TID PRN PO ANXIETY / AGITATION Last administered on 12/03/18 10:02; Start 12/02/18 at 10:30 Pioglitazone HCl (Actos) 45 mg DAILY PO Last administered on 12/03/18 08:54; Start 12/02/18 at 12:00 Amlodipine Besylate (Norvasc) 5 mg DAILY PO Last administered on 12/03/18 08:56; Start 12/02/18 at 12:00 Acetaminophen (Tylenol) 650 mg PRN Q6HRS PRN PO MILD PAIN / TEMP Last administered on 12/02/18 17:19; Start 12/02/18 at 10:30 Zolpidem Tartrate (Ambien) 5 mg PRN QHS PRN PO INSOMNIA Last administered on 12/02/18 20:50; Start 12/02/18 at 10:30 Perflutren Protein Type A Microsphe (Optison) 0.66 mg PRN 1X PRN IV SEE COMMENTS Last administered on 12/02/18 13:36; Start 12/02/18 at 13:15; Stop 12/03/18 at 13:14; Status DC Pantoprazole Sodium (Protonix) 40 mg DAILYAC PO Last administered on 12/03/18 06:11; Start 12/03/18 at 07:30 Metoclopramide HCl (Reglan Oral Solution) 10 mg QIDACHS PO Last administered on 12/03/18 12:00; Start 12/02/18 at 16:30 Active Scripts Active Lantus Solostar (Insulin Glargine,Hum.rec.anlog) 100 Unit/1 Ml Insuln.pen 18 Units SQ QHS Humalog (Insulin Lispro) 100 Unit/1 Ml Insuln.pen 10 Units SQ TIDAC Cozaar (Losartan Potassium) 50 Mg Tablet 50 Mg PO DAILY Atorvastatin Calcium 40 Mg Tablet 40 Mg PO QHS Isosorbide Mononitrate Er (Isosorbide Mononitrate) 30 Mg Tab.er.24h 30 Mg PO DAILY Oxycodone Hcl Immed.release (Oxycodone Hcl) 10 Mg Tablet 10 Mg PO PRN Q6HRS PRN Thera-M Tablet (Multivits,Ca,Minerals/Iron/Fa) 1 Each Tablet 1 Tab PO DAILY 30 Days Vitamin B-12 (Cyanocobalamin (Vitamin B-12)) 1,000 Mcg Tablet 1,000 Mcg PO DAILY 30 Days Synthroid (Levothyroxine Sodium) 75 Mcg Tablet 75 Mcg PO DAILY07 30 Days Metoprolol Succinate 50 Mg Tab.er.24h 50 Mg PO DAILY 30 Days Dicyclomine Hcl 10 Mg Capsule 10 Mg PO PRN Q6HRS PRN 30 Days Vitamin B-12 (Cyanocobalamin (Vitamin B-12)) 1,000 Mcg Tablet 1,000 Mcg PO DAILY 30 Days Metoclopramide Hcl 10 Mg/10 Ml Solution 10 Mg PO TIDACHC 30 Days Aspirin 325 Mg Tablet 81 Mg PO DAILYWBKFT 30 Days Nitrostat (Nitroglycerin) 0.4 Mg Tab.subl 0.4 Mg SL PRN Q5MIN PRN 30 Days Atorvastatin Calcium 40 Mg Tablet 40 Mg PO QHS 30 Days Keppra (Levetiracetam) 500 Mg Tablet 1,000 Mg PO BID 30 Days [Pioglitazone Hcl] 15 MG Tablet 45 Mg PO DAILY Lorazepam 1 Mg Tablet 1 Mg PO PRN TID PRN Ondansetron Odt (Ondansetron) 4 Mg Tab.rapdis 4 Mg PO TIDAC FENTANYL 25mcg/hr (Fentanyl) 1 Each Patch.td72 1 Patch TD Q3DAYS Reported Ambien (Zolpidem Tartrate) 5 Mg Tablet 5 Mg PO HS Clopidogrel (Clopidogrel Bisulfate) 75 Mg Tablet 75 Mg PO DAILY Vitals/I & O Vital Sign - Last 24 Hours 12/02/18 12/02/18 12/02/18 12/02/18 15:00 15:57 19:30 19:35 Temp 98.0 97.6 98.0 97.6 Pulse 81 73 Resp 20 18 16 B/P (MAP) 143/60 (87) 132/65 (87) Pulse Ox 98 94 O2 Delivery Room Air Room Air Room Air Room Air 12/02/18 12/02/18 12/02/18 12/03/18 22:56 23:24 23:56 02:53 Temp 98.0 97.9 98.0 97.9 Pulse 67 70 Resp 16 16 16 18 B/P (MAP) 131/67 (88) 141/67 (91) Pulse Ox 100 100 96 O2 Delivery Room Air Room Air Room Air Room Air 12/03/18 12/03/18 12/03/18 12/03/18 06:12 07:33 08:05 08:55 Temp 98.2 98.2 Pulse 77 75 Resp 16 18 B/P (MAP) 138/66 (90) Pulse Ox 96 93 O2 Delivery Room Air Room Air Room Air 12/03/18 12/03/18 12/03/18 12/03/18 08:56 08:56 10:55 12:19 Temp 98.2 98.2 Pulse 75 75 73 Resp 16 B/P (MAP) 194/80 (118) 129/63 (85) Pulse Ox 98 O2 Delivery Room Air Intake and Output 12/02/18 12/02/18 12/03/18 15:00 23:00 07:00 Intake Total 700 ml 340 ml 420 ml Output Total 550 ml Balance 150 ml 340 ml 420 ml Nutrition Consultation Dietary Evaluation: Recommendations by RD: Increase Calorie Intake Comments: Likes sugar-free puddings Expected Outcomes/Goals: All nutrition related questions answered before d/c Interpretation of weight loss: >10% in 6 months Malnutrition Findings: Food and Nutrition Intake (Mod: <75% est energy req 7days Weight Status: Overweight DENICE IZAGUIRRE MD Dec 03, 2018 14:59
[2018-12-03] MEDS ORDERED: POTASSIUM CHLORIDE 20 MEQ TABLET.ER. PO ONE (15:00)
[2018-12-03] MEDS: ZOLPIDEM 5 MG TABLET. PO PRN (21:37)
[2018-12-03] MEDS: ATORVASTATIN CALCIUM 40 MG TABLET. PO SCH (21:38)
[2018-12-03] MEDS: INSULIN GLARGINE 300 UNITS/3 ML INSULN.PEN. SQ SCH (21:43)
[2018-12-04] MEDS: LORazepam 1 MG TABLET PO PRN ×2 (01:55→09:54)
[2018-12-04] MEDS: oxyCODONE IR 5 MG TABLET PO PRN ×3 (01:57→13:50)
[2018-12-04 03:27] VITALS: BP 149/70
[2018-12-04] MEDS: PANTOPRAZOLE 40 MG TABLET.DR. PO SCH (06:01)
[2018-12-04] MEDS: LEVOTHYROXINE 75 MCG TABLET PO SCH (06:01)
[2018-12-04 07:00] VITALS: BP 157/74
[2018-12-04] MEDS: amLODIPine BESYLATE 5 MG TABLET PO SCH (08:07)
[2018-12-04] MEDS: PIOGLITAZONE 15 MG TABLET. PO SCH (08:07)
[2018-12-04] MEDS: METOCLOPRAMIDE ORAL SOLN 10 MG/10 ML SOLUTION. PO SCH ×2 (08:07→12:19)
[2018-12-04] MEDS: LOSARTAN POTASSIUM 50 MG TABLET. PO SCH (08:08)
[2018-12-04] MEDS: ASPIRIN 325 MG TABLET PO SCH (08:08)
[2018-12-04] MEDS: MULTIVITAMIN with MINERAL TABLET. PO SCH (08:08)
[2018-12-04] MEDS: ISOSORBIDE MONONITRATE ER 30 MG TAB.ER.24H PO SCH (08:08)
[2018-12-04] MEDS: levETIRAcetam 500 MG TABLET PO SCH (08:09)
[2018-12-04] MEDS: CYANOCOBALAMIN (VITAMIN B-12) 1,000 MCG TABLET. PO SCH (08:09)
[2018-12-04] MEDS: ONDANSETRON ODT 4 MG TAB.RAPDIS. PO SCH ×2 (08:09→12:19)
[2018-12-04] MEDS: CLOPIDOGREL BISULFATE 75 MG TABLET PO SCH (08:09)
[2018-12-04] MEDS: INSULIN LISPRO 300 UNITS/3 ML INSULN.PEN. SQ SCH ×4 (08:18→12:22)
--- NOTE | 2018-12-04 09:35 | PDOC ---
Subjective: Subjective: I looked at her breakfast tray - she said "oh yeah I ate it but I'll throw it up" and "I think I get to go home today." Now says she takes Reglan QID at home and takes levothyroxine w/ Protonix in the mornings. Also "I take way more Zofran than I should." I asked about following a gastroparesis diet and she says she does, but then says she only eats two meals a day. She says she can't live without pain meds. Objective: Vital Signs: Vital Signs Date Time Temp Pulse Resp B/P (MAP) Pulse Ox O2 Delivery O2 Flow Rate FiO2 12/04/18 08:08 75 12/04/18 07:00 97.9 18 157/74 (101) 97 Room Air 97.9 Labs: Laboratory Tests Test 12/03/18 11:26 12/03/18 16:42 12/03/18 20:31 12/04/18 07:22 Glucose (Fingerstick) 161 mg/dL 192 mg/dL 154 mg/dL 172 mg/dL URINE CULTURE Final Final report URINE CULTURE RES 1 Final Comment Culture shows less than 10,000 colony forming units of bacteria per milliliter of urine. PE: GEN: NAD LUNGS: CTAB HEART: RRR ABD: NABS, S/ND/NT NEURO/PSYCH: A & O 3 A/P: Chronic vomiting - h/o gastroparesis, GERD, and chronic pain -- ?back to baseline Discussed PPI, Reglan (preferably will keep to suspension), small frequent meals throughout the day, and gastroparesis complications including hyperglycemia and narcotic use. DC per primary. AMEENA CASTRO Dec 04, 2018 09:35
[2018-12-04 11:00] VITALS: BP 131/66
--- NOTE | 2018-12-04 12:40 | NUR ---
SS following up with discharge planning. No discharge needs noted at this time. Current discharge disposition remains to home with spouse. SS will continue to follow for pending discharge needs.
--- NOTE | 2018-12-04 13:10 | PDOC ---
PROGRESS NOTES Subjective Subjective has chronic low back pain . otherwise doing okay. Objective Objective Vital Signs Date Time Temp Pulse Resp B/P (MAP) Pulse Ox O2 Delivery O2 Flow Rate FiO2 12/04/18 11:00 98.0 83 18 131/66 (87) 95 Room Air 98.0 Intake and Output 12/04/18 07:00 Intake Total 800 ml Balance 800 ml Intake Oral 800 ml # Voids 1 Physical Exam Abdomen: Soft Heart: Regular rate, Normal S1, Normal S2 Extremities: No edema General: Alert HEENT: Atraumatic Lungs: Clear to auscultation Neuro: Normal speech Psych/Mental Status: Mental status NL Skin: No rashes Assessment Assessment Problems1. Atypical chest pain 2. Diabetic gastroparesis. 3. Diabetes mellitus type 2, on insulin with hyperglycemia. 4. Hypertension. 5. Hyperlipidemia. 6. Coronary artery disease. 7. Osteoporosis. 8. Chronic pain. seizure disorder cardiomyopathy. LVEF 40-45% Medical Problems: (1) Chest pain Status: Acute Plan Plan of Care dismiss today Comment Review of Relevant I have reviewed the following items maldonado (where applicable) has been applied. Labs Laboratory Tests Test 12/02/18 16:57 12/02/18 20:24 12/03/18 04:25 12/03/18 08:35 Glucose (Fingerstick) 161 mg/dL (70-99) 155 mg/dL (70-99) 215 mg/dL (70-99) White Blood Count 5.6 x10^3/uL (4.0-11.0) Red Blood Count 4.01 x10^6/uL (3.50-5.40) Hemoglobin 12.2 g/dL (12.0-15.5) Hematocrit 36.9 % (36.0-47.0) Mean Corpuscular Volume 92 fL (79-100) Mean Corpuscular Hemoglobin 30 pg (25-35) Mean Corpuscular Hemoglobin Concent 33 g/dL (31-37) Red Cell Distribution Width 15.4 % (11.5-14.5) Platelet Count 356 x10^3/uL (140-400) Neutrophils (%) (Auto) 55 % (31-73) Lymphocytes (%) (Auto) 36 % (24-48) Monocytes (%) (Auto) 7 % (0-9) Eosinophils (%) (Auto) 2 % (0-3) Basophils (%) (Auto) 1 % (0-3) Neutrophils # (Auto) 3.0 x10^3uL (1.8-7.7) Lymphocytes # (Auto) 2.0 x10^3/uL (1.0-4.8) Monocytes # (Auto) 0.4 x10^3/uL (0.0-1.1) Eosinophils # (Auto) 0.1 x10^3/uL (0.0-0.7) Basophils # (Auto) 0.1 x10^3/uL (0.0-0.2) Sodium Level 137 mmol/L (136-145) Potassium Level 3.5 mmol/L (3.5-5.1) Chloride Level 101 mmol/L (98-107) Carbon Dioxide Level 24 mmol/L (21-32) Anion Gap 12 (6-14) Blood Urea Nitrogen 24 mg/dL (7-20) Creatinine 1.1 mg/dL (0.6-1.0) Estimated GFR (Cockcroft-Gault) 48.7 Glucose Level 246 mg/dL (70-99) Calcium Level 9.6 mg/dL (8.5-10.1) Test 12/03/18 11:26 12/03/18 16:42 12/03/18 20:31 12/04/18 07:22 Glucose (Fingerstick) 161 mg/dL (70-99) 192 mg/dL (70-99) 154 mg/dL (70-99) 172 mg/dL (70-99) Test 12/04/18 11:28 Glucose (Fingerstick) 149 mg/dL (70-99) Laboratory Tests Test 12/03/18 16:42 12/03/18 20:31 12/04/18 07:22 12/04/18 11:28 Glucose (Fingerstick) 192 mg/dL (70-99) 154 mg/dL (70-99) 172 mg/dL (70-99) 149 mg/dL (70-99) Microbiology 12/01/18 Urine Culture - Final, Complete 12/01/18 Urine Culture Result 1 (JUDY) - Final, Complete Medications Current Medications Aspirin (Children'S Aspirin) 324 mg 1X ONCE PO Last administered on 12/01/18at 21:33; Start 12/01/18 at 20:45; Stop 12/01/18 at 20:51; Status DC Ondansetron HCl (Zofran) 4 mg 1X ONCE IV Last administered on 12/01/18 21:33; Start 12/01/18 at 21:00; Stop 12/01/18 at 21:01; Status DC Nitroglycerin (Nitrostat) 0.4 mg PRN Q5MIN PRN SL CHEST PAIN; Start 12/01/18 at 21:30; Stop 12/01/18 at 23:50; Status DC Potassium Chloride (KCl Oral Soln) 40 meq 1X ONCE PO Last administered on 12/01/18 22:11; Start 12/01/18 at 21:45; Stop 12/01/18 at 21:46; Status DC Sodium Chloride 1,000 ml @ 75 mls/hr 1X ONCE IV Last administered on 12/01/18 22:12; Start 12/01/18 at 21:45; Stop 12/02/18 at 11:04; Status DC Aspirin (Dev Aspirin) 81 mg DAILYWBKFT PO Last administered on 12/04/18 08:08; Start 12/02/18 at 08:00 Atorvastatin Calcium (Lipitor) 40 mg QHS PO Last administered on 12/03/18 21:38; Start 12/02/18 at 21:00 Clopidogrel Bisulfate (Plavix) 75 mg DAILY PO Last administered on 12/04/18 08:09; Start 12/02/18 at 09:00 Cyanocobalamin (Vitamin B-12) 1,000 mcg DAILY PO Last administered on 12/04/18 08:09; Start 12/02/18 at 09:00 Dicyclomine HCl (Bentyl) 10 mg PRN Q6HRS PRN PO abdominal cramps Last administered on 12/02/18 16:05; Start 12/01/18 at 23:45 Fentanyl (Duragesic 25mcg/ Hr Patch) 1 patch Q3DAYS TD Last administered on 12/03/18 12:00; Start 12/03/18 at 11:00 Insulin Glargine (Lantus) 18 units QHS SQ Last administered on 12/03/18 21:43; Start 12/02/18 at 21:00 Insulin Human Lispro (HumaLOG) 10 units TIDAC SQ Last administered on 12/04/18 12:22; Start 12/02/18 at 07:30 Isosorbide Mononitrate (Imdur) 30 mg DAILY PO Last administered on 12/04/18 08:08; Start 12/02/18 at 09:00 Levetiracetam (Keppra) 1,000 mg BID PO Last administered on 12/04/18 08:09; Start 12/02/18 at 09:00 Levothyroxine Sodium (Synthroid) 75 mcg DAILY06 PO Last administered on 12/04/18 06:01; Start 12/02/18 at 06:00 Losartan Potassium (Cozaar) 50 mg DAILY PO Last administered on 12/04/18 08:08; Start 12/02/18 at 09:00 Multivitamins (Thera M Plus) 1 tab DAILY PO Last administered on 12/04/18 08:08; Start 12/02/18 at 09:00 Nitroglycerin (Nitrostat) 0.4 mg PRN Q5MIN PRN SL CHEST PAIN; Start 12/01/18 at 23:45 Oxycodone HCl (Roxicodone) 10 mg PRN Q6HRS PRN PO MOD TO SEVERE PAIN Last administered on 12/04/18 08:08; Start 12/01/18 at 23:45 Insulin Human Lispro (HumaLOG) 0-7 UNITS TIDWMEALS SQ Last administered on 12/04/18 08:18; Start 12/02/18 at 08:00 Dextrose (Dextrose 50%-Water Syringe) 12.5 gm PRN Q15MIN PRN IV SEE COMMENTS; Start 12/01/18 at 23:45 Lorazepam (Ativan) 1 mg PRN Q6HRS PRN PO ANXIETY / AGITATION; Start 12/02/18 at 10:30; Stop 12/02/18 at 10:46; Status DC Ondansetron HCl (Zofran Odt) 4 mg PRN Q6HRS PRN PO NAUSEA/VOMITING; Start 12/02/18 at 10:30 Ondansetron HCl (Zofran Odt) 4 mg TIDAC PO Last administered on 12/04/18 12:19; Start 12/02/18 at 11:30 Metoclopramide HCl (Reglan) 10 mg QIDACHS PO Last administered on 12/02/18 11:14; Start 12/02/18 at 11:30; Stop 12/02/18 at 14:14; Status DC Lorazepam (Ativan) 1 mg PRN TID PRN PO ANXIETY / AGITATION Last administered on 12/04/18 09:54; Start 12/02/18 at 10:30 Pioglitazone HCl (Actos) 45 mg DAILY PO Last administered on 12/04/18 08:07; Start 12/02/18 at 12:00 Amlodipine Besylate (Norvasc) 5 mg DAILY PO Last administered on 12/04/18 08:07; Start 12/02/18 at 12:00 Acetaminophen (Tylenol) 650 mg PRN Q6HRS PRN PO MILD PAIN / TEMP Last administered on 12/02/18 17:19; Start 12/02/18 at 10:30 Zolpidem Tartrate (Ambien) 5 mg PRN QHS PRN PO INSOMNIA Last administered on 12/03/18 21:37; Start 12/02/18 at 10:30 Perflutren Protein Type A Microsphe (Optison) 0.66 mg PRN 1X PRN IV SEE COMMENTS Last administered on 12/02/18 13:36; Start 12/02/18 at 13:15; Stop 12/03/18 at 13:14; Status DC Pantoprazole Sodium (Protonix) 40 mg DAILYAC PO Last administered on 12/04/18 06:01; Start 12/03/18 at 07:30 Metoclopramide HCl (Reglan Oral Solution) 10 mg QIDACHS PO Last administered on 12/04/18 12:19; Start 12/02/18 at 16:30 Potassium Chloride (Klor-Con) 20 meq 1X ONCE PO Last administered on 12/03/18 17:12; Start 12/03/18 at 15:00; Stop 12/03/18 at 15:05; Status DC Active Scripts Active Lantus Solostar (Insulin Glargine,Hum.rec.anlog) 100 Unit/1 Ml Insuln.pen 18 Units SQ QHS Humalog (Insulin Lispro) 100 Unit/1 Ml Insuln.pen 10 Units SQ TIDAC Cozaar (Losartan Potassium) 50 Mg Tablet 50 Mg PO DAILY Atorvastatin Calcium 40 Mg Tablet 40 Mg PO QHS Isosorbide Mononitrate Er (Isosorbide Mononitrate) 30 Mg Tab.er.24h 30 Mg PO DAILY Oxycodone Hcl Immed.release (Oxycodone Hcl) 10 Mg Tablet 10 Mg PO PRN Q6HRS PRN Thera-M Tablet (Multivits,Ca,Minerals/Iron/Fa) 1 Each Tablet 1 Tab PO DAILY 30 Days Vitamin B-12 (Cyanocobalamin (Vitamin B-12)) 1,000 Mcg Tablet 1,000 Mcg PO DAILY 30 Days Synthroid (Levothyroxine Sodium) 75 Mcg Tablet 75 Mcg PO DAILY07 30 Days Metoprolol Succinate 50 Mg Tab.er.24h 50 Mg PO DAILY 30 Days Dicyclomine Hcl 10 Mg Capsule 10 Mg PO PRN Q6HRS PRN 30 Days Vitamin B-12 (Cyanocobalamin (Vitamin B-12)) 1,000 Mcg Tablet 1,000 Mcg PO DAILY 30 Days Metoclopramide Hcl 10 Mg/10 Ml Solution 10 Mg PO TIDACHC 30 Days Aspirin 325 Mg Tablet 81 Mg PO DAILYWBKFT 30 Days Nitrostat (Nitroglycerin) 0.4 Mg Tab.subl 0.4 Mg SL PRN Q5MIN PRN 30 Days Atorvastatin Calcium 40 Mg Tablet 40 Mg PO QHS 30 Days Keppra (Levetiracetam) 500 Mg Tablet 1,000 Mg PO BID 30 Days [Pioglitazone Hcl] 15 MG Tablet 45 Mg PO DAILY Lorazepam 1 Mg Tablet 1 Mg PO PRN TID PRN Ondansetron Odt (Ondansetron) 4 Mg Tab.rapdis 4 Mg PO TIDAC FENTANYL 25mcg/hr (Fentanyl) 1 Each Patch.td72 1 Patch TD Q3DAYS Reported Ambien (Zolpidem Tartrate) 5 Mg Tablet 5 Mg PO HS Clopidogrel (Clopidogrel Bisulfate) 75 Mg Tablet 75 Mg PO DAILY Vitals/I & O Vital Sign - Last 24 Hours 12/03/18 12/03/18 12/03/18 12/03/18 15:00 19:20 19:27 22:26 Temp 97.7 98.0 98.0 97.7 98.0 98.0 Pulse 66 73 64 Resp 16 16 16 B/P (MAP) 158/75 (102) 146/76 (99) 133/61 (85) Pulse Ox 94 96 94 O2 Delivery Room Air Room Air Room Air Room Air 12/04/18 12/04/18 12/04/18 12/04/18 01:57 02:57 03:27 07:00 Temp 98.0 97.9 98.0 97.9 Pulse 66 72 Resp 16 16 16 18 B/P (MAP) 149/70 (96) 157/74 (101) Pulse Ox 94 92 92 97 O2 Delivery Room Air Room Air Room Air Room Air 12/04/18 12/04/18 12/04/18 12/04/18 08:00 08:07 08:08 08:08 Pulse 75 75 75 O2 Delivery Room Air 12/04/18 11:00 Temp 98.0 98.0 Pulse 83 Resp 18 B/P (MAP) 131/66 (87) Pulse Ox 95 O2 Delivery Room Air Intake and Output 12/03/18 12/03/18 12/04/18 15:00 23:00 07:00 Intake Total 400 ml 400 ml Balance 400 ml 400 ml Nutrition Consultation Dietary Evaluation: Recommendations by RD: Increase Calorie Intake Comments: Likes sugar-free puddings Expected Outcomes/Goals: PO intake to meet >75% est needs All nutrition related questions answered before d/c Interpretation of weight loss: >10% in 6 months Malnutrition Findings: Food and Nutrition Intake (Mod: <75% est energy req 7days Weight Status: Overweight DENICE IZAGUIRRE MD Dec 04, 2018 13:09
[2018-12-04] MEDS ORDERED: METOPROLOL SUCC 24HR ER 50 MG TAB.ER.24H. PO SCH (13:15)
--- NOTE | 2018-12-04 13:17 | DISCH ---
DISCHARGE INSTRUCTIONS Condition on Discharge Condition on Discharge: Stable Activity After Discharge Activity Instructions for Disc: Activity as tolerated Bathing Instructions: No Tub Bath until see Lifting Instructions after Dis: No heavy lifting Exercise Instruction after Dis: Progress as tolerated Driving Instructions after Dis: Do not drive Weight Bearing Status after Di: As tolerated Diet after Discharge Diet after Discharge: Diabetic No Calorie Level Diet Texture: Regular Liquid Texture: Thin Liquid Swallowing Supervision: None needed Wound Incision Care Wound/Incision Care: Change dressing, May get incision wet Checks after Discharge Checks after discharge: Check blood sugar, ac/hs Contacting the [facility] after DC Call your doctor for: If your condition worsens Follow-Up Follow up with: dr. izaguirre next week Follow Up With: daniella peña in 3 weeks Treatment/Equipment after DC Adaptive Equipment Issued: None DENICE IZAGUIRRE MD Dec 04, 2018 13:17
--- NOTE | 2018-12-04 13:21 | PDOC ---
Provider Note Provider Note discharge summary dictated # [id number] DENICE IZAGUIRRE MD Dec 04, 2018 13:21
--- NOTE | 2018-12-04 13:56 | NUR ---
Discharge: Discharge teaching verbal and written. Reviewed orders, medication, follow-up, chest pain, HTN, gastroparesis, seizure, ect. patient verbalized understanding. All belongings with patient. Patient assisted off of unit via wheelchair accompanied by CHALO Brewster. Patient's is picking her up at the front door.
--- NOTE | 2018-12-04 14:15 | DS ---
DATE OF DISCHARGE: 12/04/2018 CONSULTANTS: Include Dr. Allen, Dr. Edwards, Dr. Orantes and Dr. Monsivais. FINAL DIAGNOSES: 1. Atypical chest pain, possibly due to gastroparesis. 2. Nausea and vomiting secondary to gastroparesis. 3. Diabetes mellitus type 2, on insulin with hyperglycemia. 4. Hypertension. 5. Hyperlipidemia. 6. Coronary artery disease. 7. Osteoporosis. 8. Chronic pain. 9. Seizure disorder. 10. Cardiomyopathy with left ventricular ejection fraction of 40-45%. HOSPITAL COURSE: The patient is a 73-year-old white female with history of diabetes mellitus type 2, on insulin with gastroparesis, hypertension, hyperlipidemia, coronary artery disease, osteoporosis with recent kyphoplasty and vertebroplasty involving T6 and L1 who has chronic pain, admitted to [facility] through Emergency Room on 12/01/2018 with intermittent chest discomfort, nausea and vomiting and some loose stools for 3 days. The patient was admitted to the hospital. Cardiac enzymes were negative. An echocardiogram showed a left ventricular ejection fraction of 40-45%. The patient was seen in consultation by Dr. Allen for Cardiology who thought the chest pain was atypical. Also seen in consultation by Dr. Edwards who felt that she had diabetic gastroparesis and who recommended continuing the Reglan. The patient does have chronic back pain. She does take fentanyl patch 25 mcg every 72 hours and oxycodone 10 mg t.i.d. p.r.n. She had a recent lumbar vertebroplasty, I believe, L1 and also T6 vertebroplasty. She has been seen at [facility] recently for back pain and also has an appointment that she is waiting for at the [facility] and does have a history of a failed nerve stimulator. The patient will be dismissed to home today, 12/04/2018. She was told to follow up with Dr. Masters in office next week and Dr. Allen in 3 weeks. DISCHARGE MEDICATIONS: She will be dismissed on Actos 45 mg every day, amlodipine 5 mg every day, aspirin 81 mg every day, atorvastatin 40 mg every day, Plavix 75 mg every day, fentanyl 25 mcg patch every 72 hours, Imdur 30 mg every day, Keppra 1000 mg b.i.d., Lantus insulin 18 units at bedtime, levothyroxine 75 mcg every day, lorazepam 1 mg t.i.d. p.r.n., losartan 50 mg every day, metoclopramide 10 mg before meals t.i.d. and bedtime, metoprolol succinate 50 mg every day, nitroglycerin 0.4 mg sublingual p.r.n., multiple vitamin once a day, NovoLog insulin 10 units before meals t.i.d., oxycodone 10 mg every 8 hours p.r.n., Protonix 40 mg every day, vitamin B12 at 1000 mcg every day, vitamin D 1000 units every day and Ambien 5 mg at bedtime p.r.n. DENICE MASTERS MD DR: MIKAL/mandy JOB#: [id number] / [id number]
--- NOTE | 2018-12-04 17:58 | PDOC ---
PROGRESS NOTES Assessment Assessment Seizure. Chest pain. HTN. HLD. Hypertriglyceridemia, 639. DM. CAD s/p CABG. Vit B12 deficiency. Hypothyroidism. Right leg deformity, chronic. RECOMMENDATIONS/PLAN: Continue Keppra 1000 mg bid. Continue Plavix 75 mg daily. Continue Lipitor HS. Treat medical and cardiac diseases. FU with PCP. FU with Neurology if has further seizures. EEG on 12/03/18: No epileptiform discharges. The posterior dominant rhyme is 6-8 Hz/s that is mildly slow for age. HISTORY OF PRESENT ILLNESS This is a 73-y-old female patient with above medical diseases has symptoms vomiting and chest pain to be admitted for further evaluation. She has history of seizure for about 7 years about 405 seizures a year described as generalized convulsion. She has been treated with Keppra since. She a seizure yesterday on 12/01/18. She stated that her noted she was acting abnormally with confusion, incoherence, and shaking movements for several minutes but confusional state lasted longer. No seizures since here. PAST MEDICAL HISTORY Cardiovascular: CAD, HTN, Hyperlipidemia Pulmonary: Bronchitis CENTRAL NERVOUS SYSTEM: Seizure GI: GERD, gastroparesis Heme/Onc: No pertinent hx Hepatobiliary: No pertinent hx Psych: No pertinent hx Musculoskeletal: low back pain, Osteoarthritis Rheumatologic: No pertinent hx Infectious disease: No pertinent hx Renal/: Chronic renal insuff, Other Endocrine: Diabetes PAST SURGICAL HISTORY Appendectomy, Cholecystectomy, CABG, LHC, PCI, Recent T6 vertebroplasty FAMILY HISTORY HTN. ALLERGIES Coded Allergies: Iodinated Contrast- Oral and IV Dye (Verified Allergy, Severe, Anaphylaxis, 05/27/18) Penicillins (Verified Allergy, Intermediate, 05/27/18) atenolol (Verified Allergy, Intermediate, TAKES METOPROLOL AT HOME, 05/27/18) erythromycin base (Verified Allergy, Intermediate, 05/27/18) iodine (Verified Allergy, Intermediate, 05/27/18) levofloxacin (Verified Allergy, Intermediate, 05/27/18) pregabalin (Verified Allergy, Intermediate, 05/27/16) MEDICATIONS: Refer to MAR SOCIAL HISTORY: Lives with her . Denies smoking, drinking, and illicit drug use. REVIEW OF SYSTEMS: Constitutional: No malnutrition, weight loss, cachexia. Head: Remote dull head injury. Skin: No edema, or rash. Ear: No infection. Eyes: No vision loss or color blindness. Nose: No bleeding or purulent discharges. Hearing: No hearing decrease. Neck: No injury. Breast: No history of cancer, masses,or discharges. Cardiac: CAD, s/p CABG, HTN, HLD. Pulmonary: No COPD. GI: GERD. Urinary/genital: UTI. Endocrinologic: Diabetes Mellitus. Skeletomuscular: No muscular atrophy, deformity. Neurological: see HP. Psychiatric: Denies drug use/abuse. Otherwise, not [id number] review of systems. PHYSICAL EXAMINATION: General appearance is in subacute distress. HEENT: Normocephalic and nontraumatic. Eyes, nose, ears, and throat are unremarkable. Neck is supple. No lymphadenopathy. No crepitus. Cardiovascular: S1, S2, regular rate and rhythm. Pulmonary: Clear to auscultation bilaterally. Abdomen: Bowel sounds are positive. Abdomen is soft, nontender, and nondistended. Extremities: No rash, lesions, or edema. No restriction of range of motion NEUROLOGICAL EXAMINATION: Alert Oriented to time, place and person. PERRL. EOMI. CN: no focal findings. Muscle tone: within normal. Muscle strength: 5 DTR: 2 Plantar reflex: Flexor response bilaterally Gait: not examined in bed. Sensory exam: no abnormal findings. No cerebellar signs elicited. F-T-N test accurate. Objective Objective Vital Signs Date Time Temp Pulse Resp B/P (MAP) Pulse Ox O2 Delivery O2 Flow Rate FiO2 12/04/18 13:50 75 12/04/18 11:00 98.0 18 131/66 (87) 95 Room Air 98.0 Intake and Output 12/04/18 07:00 Intake Total 800 ml Balance 800 ml Intake Oral 800 ml # Voids 1 Vitals Signs Vitals VS - Last 72 Hours, by Label Date Time Temp Pulse Resp B/P (MAP) Pulse Ox O2 Delivery O2 Flow Rate FiO2 12/04/18 13:50 75 12/04/18 11:00 98.0 83 18 131/66 (87) 95 Room Air 98.0 12/04/18 08:08 75 12/04/18 08:08 75 12/04/18 08:07 75 12/04/18 08:00 Room Air 12/04/18 07:00 97.9 72 18 157/74 (101) 97 Room Air 97.9 12/04/18 03:27 98.0 66 16 149/70 (96) 92 Room Air 98.0 12/04/18 02:57 16 92 Room Air 12/04/18 01:57 16 94 Room Air 12/03/18 22:26 98.0 64 16 133/61 (85) 94 Room Air 98.0 12/03/18 19:27 98.0 73 16 146/76 (99) 96 Room Air 98.0 12/03/18 19:20 Room Air 12/03/18 15:00 97.7 66 16 158/75 (102) 94 Room Air 97.7 12/03/18 12:19 129/63 (85) 12/03/18 10:55 98.2 73 16 194/80 (118) 98 Room Air 98.2 12/03/18 08:56 75 12/03/18 08:56 75 12/03/18 08:55 75 12/03/18 08:05 Room Air 12/03/18 07:33 98.2 77 18 138/66 (90) 93 Room Air 98.2 Laboratory Laboratory Laboratory Tests Test 12/03/18 20:31 12/04/18 07:22 12/04/18 11:28 Glucose (Fingerstick) 154 mg/dL (70-99) 172 mg/dL (70-99) 149 mg/dL (70-99) Microbiology 12/01/18 Urine Culture - Final, Complete 12/01/18 Urine Culture Result 1 (JUDY) - Final, Complete Medication Medications Current Medications Metoprolol Succinate (Toprol Xl) 50 mg DAILY PO Last administered on 12/04/18at 13:50; Start 12/04/18 at 13:15; Stop 12/04/18 at 14:10; Status DC Comment Review of Relevant I have reviewed the following items maldonado (where applicable) has been applied. RAVI NAGEL MD Dec 04, 2018 17:58
[2018-12-09] MEDS ORDERED: Pantoprazole PO (10:24)
== END 2018-12-04 14:05 | disposition home or self-care (01) | DRG 74 ==
LOC: ER 20:23 → 2 SOUTH 21:15 → OBSVTOIN 12-02 14:26
PROVIDERS: ADMIT Internal Medicine; ATTEND Internal Medicine
DX: E11.43 Type 2 diabetes mellitus with diabetic autonomic (poly)neuropathy (principal); I42.9 Cardiomyopathy, unspecified; K31.84 Gastroparesis; G40.909 Epilepsy, unspecified, not intractable, without status epilepticus; F31.9 Bipolar disorder, unspecified; I25.10 Atherosclerotic heart disease of native coronary artery without angina pectoris; E78.5 Hyperlipidemia, unspecified; M81.0 Age-related osteoporosis without current pathological fracture; H35.30 Unspecified macular degeneration; M47.816 Spondylosis without myelopathy or radiculopathy, lumbar region; E11.42 Type 2 diabetes mellitus with diabetic polyneuropathy; G89.29 Other chronic pain; K21.9 Gastro-esophageal reflux disease without esophagitis; K58.0 Irritable bowel syndrome with diarrhea; N18.9 Chronic kidney disease, unspecified; I12.9 Hypertensive chronic kidney disease with stage 1 through stage 4 chronic kidney disease, or unspecified chronic kidney disease; E11.22 Type 2 diabetes mellitus with diabetic chronic kidney disease; K57.90 Diverticulosis of intestine, part unspecified, without perforation or abscess without bleeding; K64.8 Other hemorrhoids; E78.1 Pure hyperglyceridemia; E53.8 Deficiency of other specified B group vitamins; M21.951 Unspecified acquired deformity of right thigh; E11.65 Type 2 diabetes mellitus with hyperglycemia; E89.0 Postprocedural hypothyroidism; Z96.652 Presence of left artificial knee joint; Z95.1 Presence of aortocoronary bypass graft; Z90.710 Acquired absence of both cervix and uterus; Z90.49 Acquired absence of other specified parts of digestive tract; Z95.5 Presence of coronary angioplasty implant and graft; Z88.0 Allergy status to penicillin; Z88.8 Allergy status to other drugs, medicaments and biological substances; Z91.041 Radiographic dye allergy status; Z79.4 Long term (current) use of insulin; Z98.1 Arthrodesis status; Z87.442 Personal history of urinary calculi; Z79.02 Long term (current) use of antithrombotics/antiplatelets; Z79.891 Long term (current) use of opiate analgesic; Z82.49 Family history of ischemic heart disease and other diseases of the circulatory system
CPT/HCPCS: 99285; C8929; 36415; 71045; 80048; 80053; 80061; 81001; 82607; 82962; 83690; 83735; 84443; 84484; 85025; 85610; 87086; 93005; 95816; 96361; 96374; G0378; G0379; J1815; J2405; J7030; J8597; Q0162; Q9956

== ENCOUNTER 2018-12-06 15:56 | Inpatient (IN) | payer MEDICARE, OTHER ==
[~2018-12-06] VITALS: Ht 147.3 cm; Wt 72.6 kg
[2018-12-06] MEDS: HYDROcodone/APAP 5/325MG 1 TAB TABLET PO PRN (18:11)
[2018-12-06] MEDS ORDERED: PROMETHAZINE 12.5 MG TABLET. PO PRN (18:15)
[2018-12-06] MEDS ORDERED: ONDANSETRON ODT 4 MG TAB.RAPDIS. PO PRN (18:15)
[2018-12-06] MEDS: POTASSIUM CL 20MEQ D5-0.45NACL 1,000 ML IV SCH (19:25)
[2018-12-06 19:32] LABS: HEMATOCRIT 37.8 % (36.0-47.0); HEMOGLOBIN 12.6 g/dL (12.0-15.5); RED BLOOD COUNT 4.17 x10^6/uL (3.50-5.40); RED CELL DISTRIBUTION WIDTH 14.9 % (11.5-14.5); WHITE BLOOD COUNT 6.7 x10^3/uL (4.0-11.0)
[2018-12-06] MEDS: fentaNYL PF VIAL 100 MCG/2 ML VIAL IV PRN ×2 (19:34→22:38)
[2018-12-06 19:38] LABS: CALCIUM 9.7 mg/dL (8.5-10.1); CREATININE 0.9 mg/dL (0.6-1.0); GFR 61.4; POTASSIUM 3.5 mmol/L (3.5-5.1)
[2018-12-06 19:40] VITALS: BP 155/77
[2018-12-06 19:45] LABS: ALBUMIN 4.1 g/dL (3.4-5.0); ALBUMIN/GLOBULIN RATIO 1.1 (1.0-1.7); TOTAL BILIRUBIN 0.3 mg/dL (0.2-1.0)
[2018-12-06] MEDS: levETIRAcetam 1,000 MG in IV DEXTROSE 5% 100ML 100 ML IV SCH (20:36)
[2018-12-06] MEDS ORDERED: DEXTROSE 50% 25 GM / 50ML DISP.SYRIN. IV PRN (21:00)
[2018-12-06] MEDS: LORazepam 1 MG TABLET PO PRN (21:02)
[2018-12-06] MEDS: ZOLPIDEM 5 MG TABLET. PO SCH (21:02)
[2018-12-06] MEDS: INSULIN GLARGINE 300 UNITS/3 ML INSULN.PEN. SQ SCH (21:56)
[2018-12-06 22:35] VITALS: BP 167/87
[2018-12-06] MEDS ORDERED: METO-269 PO (22:49)
[2018-12-06 23:59] VITALS: BP 167/87
[2018-12-07] VITALS (7 sets, daily range): BP systolic 124–203; BP diastolic 69–98
[2018-12-07] MEDS: HYDROcodone/APAP 5/325MG 1 TAB TABLET PO PRN ×4 (00:48→16:32)
[2018-12-07] MEDS: fentaNYL PF VIAL 100 MCG/2 ML VIAL IV PRN ×7 (02:09→21:50)
[2018-12-07] MEDS: LEVOTHYROXINE 75 MCG TABLET PO SCH (06:59)
[2018-12-07] MEDS: POTASSIUM CL 20MEQ D5-0.45NACL 1,000 ML IV SCH (06:59)
[2018-12-07] MEDS: ONDANSETRON PF 4 MG/2 ML VIAL. IV PRN (07:48)
[2018-12-07] MEDS: INSULIN LISPRO 300 UNITS/3 ML INSULN.PEN. SQ SCH ×3 (07:52→17:37)
[2018-12-07] MEDS: LORazepam 1 MG TABLET PO PRN ×2 (09:17→18:44)
[2018-12-07] MEDS: METOPROLOL SUCC 24HR ER 50 MG TAB.ER.24H. PO SCH ×2 (09:19→21:18)
[2018-12-07] MEDS: levETIRAcetam 1,000 MG in IV DEXTROSE 5% 100ML 100 ML IV SCH ×2 (09:20→21:49)
--- NOTE | 2018-12-07 16:16 | HP ---
ADMIT DATE: 12/07/2018 HISTORY OF PRESENT ILLNESS: The patient is a 73-year-old female patient who called me yesterday as I was covering Dr. Masters stating that she has not been able to keep anything by mouth. She has been constantly nauseous and vomiting, has severe abdominal pain and therefore she was admitted directly to [facility] for further evaluation and treatment. She apparently was discharged from this facility on 12/04/2018 after she was admitted with atypical chest pain, felt to be possibly due to gastroparesis. We did actually start her on IV fluid, antiemetic and pain medication and all her lab work that we ordered were unremarkable. PAST MEDICAL HISTORY: Significant for type 2 diabetes mellitus with diabetic gastroparesis. She is on insulin. She has hypertension, hyperlipidemia, coronary artery disease, history of seizure disorder. She has had history of gastritis in 2012, diverticulitis with diverticulosis, reflux esophagitis. She has Schatzki strictures dilated in 2011, right ankle arthroplasty. She has internal hemorrhoids. She is known to have gastroesophageal reflux disease, kidney stones, lumbar spondylosis, diabetic peripheral neuropathy. PAST SURGICAL HISTORY: Significant for: 1. Dilatation of Schatzki stricture. 2. Right total ankle arthroplasty. 3. A 3-vessel coronary artery bypass graft surgery in 2002. 4. L1 lumbar kyphoplasty, T6 vertebroplasty. 5. She has PTCA with stent deployment x 3 to left anterior descending coronary artery and circumflex artery. 6. Appendectomy, cholecystectomy and tonsillectomy. FAMILY HISTORY: Noncontributory. SOCIAL HISTORY: She is , lives with . She does not smoke, drink alcohol or use any recreational drugs. REVIEW OF SYSTEMS: The patient denied any blurring of vision. She is known to have macular degeneration. Denied any earache, tinnitus or sensorineural deafness. Denied any nosebleeds, stuffy nose or postnasal drip. Denied any sore throat, sore tongue, toothache, hoarseness of voice, difficulty swallowing. Did complain of nausea and vomiting. Denied any diarrhea or constipation. Did complain of abdominal pain. Denied any hematemesis, melena, hematochezia. Denied any dysuria, frequency or hematuria. ALLERGIES: SHE IS ALLERGIC TO IODINATED CONTRAST DYE ORAL AND IV, PENICILLIN, ATENOLOL, ERYTHROMYCIN, IODINE, LEVOFLOXACIN, PREGABALIN. MEDICATIONS: She is currently on the following medication: Dicyclomine 10 mg every 6 hours as needed, Plavix 75 mg once a day, atorvastatin 40 mg at bedtime, isosorbide mononitrate 30 mg daily. She is on nitroglycerin 0.4 mg sublingually q.5 minutes x 3, metoprolol succinate 50 mg daily, losartan potassium 50 mg daily, aspirin 325 mg daily, fentanyl 25 mcg q.72 hours, oxycodone 10 mg immediate release every 6 hours, Keppra 1000 mg twice a day, lorazepam 1 mg 3 times a day, zolpidem tartrate 5 mg at bedtime, ondansetron 4 mg 3 times a day, metoclopramide 10 mg 3 times a day before meals, Lantus insulin 18 units at bedtime, Humalog insulin 10 units before meals, levothyroxine sodium 75 mcg once a day, cyanocobalamin 1000 mcg daily, multivitamin with mineral 1 tablet once a day, pioglitazone 45 mg once a day. PHYSICAL EXAMINATION: GENERAL: On arrival to the hospital, she looked somewhat pale, but no jaundice, cyanosis, or thyromegaly. No jugular venous distension. No lower limb edema. VITAL SIGNS: Her heart rate was 67, blood pressure was 124/69, temperature was 98.3, respiratory rate was 18 and oxygen saturation was 97%. HEAD, EYES, EARS, NOSE AND THROAT: Showed normocephalic, atraumatic. NECK: Supple. HEART: Showed normal first and second heart sounds. No gallop, rub or murmur. CHEST: Clear to auscultation. No crepitation or rhonchi. ABDOMEN: Distended, soft, mild tenderness in the right upper and epigastric area. No guarding or rigidity. No organomegaly. All hernial orifices intact. Bowel sounds normal. NEUROLOGIC: She is awake, alert, responding appropriately. All cranial nerves intact. She moves extremities without difficulty. LABORATORY DATA: On admission showed that her white cell count was 6700, hemoglobin 12.6, hematocrit 37.8, MCV 91, and platelet count 368,000. Serum sodium was 136, potassium 3.5, chloride 100, bicarbonate 25, anion gap of 11, BUN 11, creatinine 0.9, estimated GFR was 61 mL per minute. Her glucose was 168, calcium was 9.7. Total bilirubin, AST, ALT were normal. Alkaline phosphatase slightly elevated. Lactate dehydrogenase was slightly elevated at 239. Total protein was 8, albumin was 4.1 and lipase was 238. ASSESSMENT AND PLAN: In summary, this is a 73-year-old female patient, known to have type 2 diabetes and diabetic gastroparesis who apparently has had intractable nausea, vomiting, stated that she has been unable to keep anything by mouth and was admitted directly for further evaluation. She was discharged only recently, specifically on 12/04/2018. I did start her on IV fluid, IV pain medication, antiemetic and started on clear liquid diet to see if she can tolerate orally. I made sure that her Keppra was given IV to make sure she does not have any breakthrough seizures and once we advance her diet and is able to take things by mouth, we will switch her to take her Keppra orally. LISSETH COCHRAN MD DR: NEVIN/mandy JOB#: [id number] / [id number]
[2018-12-07] MEDS ORDERED: METOPROLOL SUCC 24HR ER 50 MG TAB.ER.24H. PO SCH (21:00)
[2018-12-07] MEDS: INSULIN GLARGINE 300 UNITS/3 ML INSULN.PEN. SQ SCH (21:00)
[2018-12-07] MEDS: ZOLPIDEM 5 MG TABLET. PO SCH (21:18)
[2018-12-08] MEDS: POTASSIUM CL 20MEQ D5-0.45NACL 1,000 ML IV SCH ×2 (00:50→08:58)
[2018-12-08] MEDS: fentaNYL PF VIAL 100 MCG/2 ML VIAL IV PRN ×4 (00:52→10:41)
[2018-12-08 03:00] VITALS: BP 168/91
--- NOTE | 2018-12-08 05:44 | PN ---
DATE: 12/07/2018 SUBJECTIVE: The patient is resting, slightly propped up in bed, in no apparent distress. Apparently, her nausea and vomiting has somewhat improved. She has eaten her lunch today and so far, she has not had any nausea, vomiting. She continued to complain of epigastric pain after her pain medication ____ hour. PHYSICAL EXAMINATION: GENERAL: When I examined her, she looked well and was clearly in no apparent respiratory distress, slightly pale, no jaundice, cyanosis, or thyromegaly. No jugular venous distension. No lower limb edema. VITAL SIGNS: Her heart rate was 89, blood pressure was 163/79, temperature was 98, respiratory rate was 19 and oxygen saturation was 99% on room air. HEAD, EYES, EARS, NOSE AND THROAT: Showed normocephalic, atraumatic. NECK: Supple. HEART: Showed normal first and second heart sounds. No gallop, rub or murmur. CHEST: Clear to auscultation. No crepitation or rhonchi. ABDOMEN: Distended, soft, nontender. NEUROLOGIC: She was awake, alert, responding appropriately. All cranial nerves intact. She moves extremities without difficulty. ASSESSMENT AND PLAN: Intractable nausea and vomiting secondary to diabetic gastroparesis. The patient seems to be tolerating her diet, so we will advance as tolerated. We will resume all her home medication. If she has no further episodes of nausea, vomiting, Keppra can be given orally. I will repeat her lab work tomorrow and Dr. Masters will be in town, so we will decide whether to keep her or discharge her home. LISSETH COCHRAN MD DR: NEVIN/mandy JOB#: [id number] / [id number]
[2018-12-08 05:57] LABS: CALCIUM 9.3 mg/dL (8.5-10.1); CREATININE 0.7 mg/dL (0.6-1.0)
[2018-12-08 07:00] VITALS: BP 146/90
[2018-12-08] MEDS: HYDROcodone/APAP 5/325MG 1 TAB TABLET PO PRN (07:00)
[2018-12-08] MEDS: LEVOTHYROXINE 75 MCG TABLET PO SCH (07:00)
[2018-12-08] MEDS: ONDANSETRON PF 4 MG/2 ML VIAL. IV PRN (07:44)
[2018-12-08] MEDS: levETIRAcetam 1,000 MG in IV DEXTROSE 5% 100ML 100 ML IV SCH (08:54)
[2018-12-08] MEDS: METOPROLOL SUCC 24HR ER 50 MG TAB.ER.24H. PO SCH ×2 (08:54→21:04)
[2018-12-08] MEDS: INSULIN LISPRO 300 UNITS/3 ML INSULN.PEN. SQ SCH ×3 (08:57→17:34)
--- NOTE | 2018-12-08 09:23 | NUR ---
EVARISTO following for discharge planning. Chart reviewed. Pt is from home with spouse. No discharge needs noted at this time. Will continue to evaluate needs.
[2018-12-08 11:00] VITALS: BP 175/85
[2018-12-08] MEDS ORDERED: DICYCLOMINE HCL 10 MG CAPSULE PO PRN (11:15)
[2018-12-08] MEDS ORDERED: NITROGLYCERIN SUBLINGUAL 0.4 MG BOTTLE OF 25. SL PRN (11:15)
[2018-12-08] MEDS ORDERED: ASPI-630 PO (11:21)
[2018-12-08] MEDS ORDERED: METOCLOPRAMIDE ORAL SOLN 10 MG/10 ML SOLUTION. PO SCH (11:30)
[2018-12-08] MEDS: IV 1/2 NORMAL SALINE 1,000 ML IV SCH (11:30)
[2018-12-08] MEDS ORDERED: fentaNYL 25MCG/HR PATCH 1 PATCH PATCH.TD72 TD SCH (12:00)
[2018-12-08] MEDS: levETIRAcetam 500 MG TABLET PO SCH ×2 (12:00→21:02)
[2018-12-08] MEDS: ONDANSETRON ODT 4 MG TAB.RAPDIS. PO SCH ×2 (12:14→17:34)
[2018-12-08] MEDS: ASPIRIN CHEWABLE 81 MG TABLET. PO SCH (12:14)
[2018-12-08] MEDS: CYANOCOBALAMIN (VITAMIN B-12) 1,000 MCG TABLET. PO SCH (12:14)
[2018-12-08] MEDS: PIOGLITAZONE 15 MG TABLET. PO SCH (12:14)
[2018-12-08] MEDS: CLOPIDOGREL BISULFATE 75 MG TABLET PO SCH (12:14)
[2018-12-08] MEDS: oxyCODONE IR 5 MG TABLET PO PRN ×2 (12:21→18:42)
--- NOTE | 2018-12-08 13:01 | PDOC ---
Subjective: Subjective: Please see GI consult from 12/02/18 and following progress notes. Back to baseline when discharged on 12/04, did okay for a day at home, then hyperglycemia ("about 400") and n/v. Tolerating liquids this morning. No abd pain, diarrhea, or constipation. Tells me again how she was supposed to have an EGD w/ Dr. Briseno that was cancelled. Says she saw an fire observer who "didn't say much" about diabetes. "Sometimes" takes Reglan QID at home - usually BID or TID. Objective: Objective: Per RN - pulled out her IV. Vital Signs: Vital Signs Date Time Temp Pulse Resp B/P (MAP) Pulse Ox O2 Delivery O2 Flow Rate FiO2 12/08/18 12:21 98 Room Air 12/08/18 11:00 98.3 62 18 175/85 (115) 98.3 Labs: Laboratory Tests Test 12/07/18 17:16 12/07/18 20:30 12/08/18 04:00 12/08/18 07:23 Glucose (Fingerstick) 188 mg/dL 97 mg/dL 202 mg/dL Sodium Level 142 mmol/L Potassium Level 4.0 mmol/L Chloride Level 106 mmol/L Carbon Dioxide Level 23 mmol/L Anion Gap 13 Blood Urea Nitrogen 8 mg/dL Creatinine 0.7 mg/dL Estimated GFR (Cockcroft-Gault) 82.0 Glucose Level 184 mg/dL Calcium Level 9.3 mg/dL Test 12/08/18 11:32 Glucose (Fingerstick) 159 mg/dL PE: GEN: NAD LUNGS: CTAB HEART: RRR ABD: NABS, S/ND/NT NEURO/PSYCH: A & O 3 A/P: Chronic n/v - h/o gastroparesis, GERD, uncontrolled DM, chronic narcotic use -- Has Reglan susp TID here - increase to QID and resume PPI - okay to try PO, consider changing to IV if indicated. AMEENA CASTRO Dec 08, 2018 13:01
[2018-12-08] MEDS: LORazepam 1 MG TABLET PO PRN ×2 (13:43→22:03)
[2018-12-08] MEDS: PANTOPRAZOLE 40 MG TABLET.DR. PO SCH (13:48)
--- NOTE | 2018-12-08 15:03 | PDOC ---
PROGRESS NOTES Subjective Subjective feels better. lab reviewed. some nausea. blood sugars are okay. Objective Objective Vital Signs Date Time Temp Pulse Resp B/P (MAP) Pulse Ox O2 Delivery O2 Flow Rate FiO2 12/08/18 13:21 18 Room Air 12/08/18 12:21 98 12/08/18 11:00 98.3 62 175/85 (115) 98.3 Intake and Output 12/08/18 06:59 Intake Total 1560 ml Balance 1560 ml Intake Oral 1560 ml # Voids 16 Physical Exam Abdomen: Soft Heart: Regular rate, Normal S1, Normal S2 Extremities: No edema General: Alert HEENT: Atraumatic Lungs: Clear to auscultation Neuro: Normal speech Psych/Mental Status: Mental status NL Skin: No rashes Assessment Assessment nausea and vomiting due to diabetic gastroparesis diabetes mellitus type 2 on insulin hypertension hyperlipidemia coronary artery disease cardiomyopathy LVEF 40 -45% chronic pain. back gamez right ankle pain Plan Plan of Care continue reglan and protonix and zofran decrease iv fluids continue insulin Comment Review of Relevant I have reviewed the following items maldonado (where applicable) has been applied. Labs Laboratory Tests Test 12/06/18 19:15 12/06/18 21:13 12/07/18 12:09 12/07/18 17:16 White Blood Count 6.7 x10^3/uL (4.0-11.0) Red Blood Count 4.17 x10^6/uL (3.50-5.40) Hemoglobin 12.6 g/dL (12.0-15.5) Hematocrit 37.8 % (36.0-47.0) Mean Corpuscular Volume 91 fL (79-100) Mean Corpuscular Hemoglobin 30 pg (25-35) Mean Corpuscular Hemoglobin Concent 33 g/dL (31-37) Red Cell Distribution Width 14.9 % (11.5-14.5) Platelet Count 368 x10^3/uL (140-400) Sodium Level 136 mmol/L (136-145) Potassium Level 3.5 mmol/L (3.5-5.1) Chloride Level 100 mmol/L (98-107) Carbon Dioxide Level 25 mmol/L (21-32) Anion Gap 11 (6-14) Blood Urea Nitrogen 11 mg/dL (7-20) Creatinine 0.9 mg/dL (0.6-1.0) Estimated GFR (Cockcroft-Gault) 61.4 BUN/Creatinine Ratio 12 (6-20) Glucose Level 268 mg/dL (70-99) Calcium Level 9.7 mg/dL (8.5-10.1) Total Bilirubin 0.3 mg/dL (0.2-1.0) Aspartate Amino Transf (AST/SGOT) 15 U/L (15-37) Alanine Aminotransferase (ALT/SGPT) 23 U/L (14-59) Alkaline Phosphatase 139 U/L (46-116) Lactate Dehydrogenase 239 U/L (81-234) Total Protein 8.0 g/dL (6.4-8.2) Albumin 4.1 g/dL (3.4-5.0) Albumin/Globulin Ratio 1.1 (1.0-1.7) Lipase 238 U/L (73-393) Glucose (Fingerstick) 243 mg/dL (70-99) 189 mg/dL (70-99) 188 mg/dL (70-99) Test 12/07/18 20:30 12/08/18 04:00 12/08/18 07:23 12/08/18 11:32 Glucose (Fingerstick) 97 mg/dL (70-99) 202 mg/dL (70-99) 159 mg/dL (70-99) Sodium Level 142 mmol/L (136-145) Potassium Level 4.0 mmol/L (3.5-5.1) Chloride Level 106 mmol/L (98-107) Carbon Dioxide Level 23 mmol/L (21-32) Anion Gap 13 (6-14) Blood Urea Nitrogen 8 mg/dL (7-20) Creatinine 0.7 mg/dL (0.6-1.0) Estimated GFR (Cockcroft-Gault) 82.0 Glucose Level 184 mg/dL (70-99) Calcium Level 9.3 mg/dL (8.5-10.1) Laboratory Tests Test 12/07/18 17:16 12/07/18 20:30 12/08/18 04:00 12/08/18 07:23 Glucose (Fingerstick) 188 mg/dL (70-99) 97 mg/dL (70-99) 202 mg/dL (70-99) Sodium Level 142 mmol/L (136-145) Potassium Level 4.0 mmol/L (3.5-5.1) Chloride Level 106 mmol/L (98-107) Carbon Dioxide Level 23 mmol/L (21-32) Anion Gap 13 (6-14) Blood Urea Nitrogen 8 mg/dL (7-20) Creatinine 0.7 mg/dL (0.6-1.0) Estimated GFR (Cockcroft-Gault) 82.0 Glucose Level 184 mg/dL (70-99) Calcium Level 9.3 mg/dL (8.5-10.1) Test 12/08/18 11:32 Glucose (Fingerstick) 159 mg/dL (70-99) Medications Current Medications Potassium Chloride/Dextrose/ Sod Cl 1,000 ml @ 75 mls/hr [id number] IV Last administered on 12/08/18at 08:58; Start 12/06/18 at 17:30; Stop 12/08/18 at 11:01; Status DC Ondansetron HCl (Zofran) 4 mg PRN Q4HRS PRN IV NAUSEA/VOMITING Last administered on 12/08/18at 07:44; Start 12/06/18 at 17:30 Levetiracetam 1000 mg/Dextrose 110 ml @ 440 mls/hr Q12HR IV Last administered on 12/08/18at 08:54; Start 12/06/18 at 17:30; Stop 12/08/18 at 12:01; Status DC Fentanyl Citrate (Fentanyl 2ml Vial) 50 mcg PRN Q3HRS PRN IV PAIN Last administered on 12/08/18at 10:41; Start 12/06/18 at 17:30; Stop 12/08/18 at 11:25; Status DC Acetaminophen/ Hydrocodone Bitart (Lortab 5/325) 1 tab PRN Q4HRS PRN PO PAIN Last administered on 12/08/18at 07:00; Start 12/06/18 at 18:15; Stop 12/08/18 at 11:25; Status DC Ondansetron HCl (Zofran Odt) 4 mg PRN Q6HRS PRN PO NAUSEA/VOMITING, 1st CHOICE; Start 12/06/18 at 18:15 Promethazine HCl (Phenergan) 12.5 mg PRN Q6HRS PRN PO NAUSEA/VOMITING, 2nd CHOICE; Start 12/06/18 at 18:15 Levothyroxine Sodium (Synthroid) 75 mcg DAILY07 PO Last administered on 12/08/18 07:00; Start 12/07/18 at 07:00 Lorazepam (Ativan) 1 mg PRN TID PRN PO ANXIETY / AGITATION Last administered on 12/08/18 13:43; Start 12/06/18 at 20:45 Zolpidem Tartrate (Ambien) 5 mg HS PO Last administered on 12/07/18 21:18; Start 12/06/18 at 21:00 Insulin Glargine (Lantus) 18 units QHS SQ Last administered on 12/06/18 21:56; Start 12/06/18 at 21:00 Insulin Human Lispro (HumaLOG) 10 units TIDAC SQ Last administered on 12/08/18 12:17; Start 12/07/18 at 07:30 Dextrose (Dextrose 50%-Water Syringe) 12.5 gm PRN Q15MIN PRN IV SEE COMMENTS; Start 12/06/18 at 21:00 Metoprolol Succinate (Toprol Xl) 50 mg BID PO Last administered on 12/08/18 08:54; Start 12/07/18 at 09:00 Metoprolol Succinate (Toprol Xl) 50 mg HS PO ; Start 12/07/18 at 21:00; Status UNV Sodium Chloride 1,000 ml @ 40 mls/hr Q24H IV ; Start 12/08/18 at 11:30 Aspirin (Children'S Aspirin) 81 mg DAILY PO Last administered on 12/08/18 12:14; Start 12/08/18 at 12:00 Atorvastatin Calcium (Lipitor) 40 mg QHS PO ; Start 12/08/18 at 21:00 Clopidogrel Bisulfate (Plavix) 75 mg DAILY PO Last administered on 12/08/18 12:14; Start 12/08/18 at 12:00 Cyanocobalamin (Vitamin B-12) 1,000 mcg DAILY PO Last administered on 12/08/18 12:14; Start 12/08/18 at 12:00 Dicyclomine HCl (Bentyl) 10 mg PRN Q6HRS PRN PO abdominal cramps; Start 12/08/18 at 11:15 Fentanyl (Duragesic 25mcg/ Hr Patch) 1 patch Q3DAYS TD Last administered on 12/08/18at 12:14; Start 12/08/18 at 12:00 Isosorbide Mononitrate (Imdur) 30 mg DAILY PO ; Start 12/09/18 at 09:00 Levetiracetam (Keppra) 1,000 mg BID PO ; Start 12/08/18 at 12:00 Losartan Potassium (Cozaar) 50 mg DAILY PO ; Start 12/09/18 at 09:00 Metoclopramide HCl (Reglan Oral Solution) 10 mg TIDACHC PO Last administered on 12/08/18at 12:13; Start 12/08/18 at 11:30; Stop 12/08/18 at 13:01; Status DC Multivitamins (Thera M Plus) 1 tab DAILY PO ; Start 12/09/18 at 09:00 Nitroglycerin (Nitrostat) 0.4 mg PRN Q5MIN PRN SL CHEST PAIN; Start 12/08/18 at 11:15 Ondansetron HCl (Zofran Odt) 4 mg TIDAC PO Last administered on 12/08/18at 12:14; Start 12/08/18 at 11:30 Oxycodone HCl (Roxicodone) 10 mg PRN Q6HRS PRN PO PAIN Last administered on 12/08/18at 12:21; Start 12/08/18 at 11:45 Pioglitazone HCl (Actos) 45 mg DAILY PO Last administered on 12/08/18at 12:14; Start 12/08/18 at 12:00 Metoclopramide HCl (Reglan Oral Solution) 10 mg QIDACHS PO ; Start 12/08/18 at 16:30 Pantoprazole Sodium (Protonix) 40 mg DAILYAC PO Last administered on 12/08/18at 13:48; Start 12/08/18 at 13:30 Active Scripts Active Lantus Solostar (Insulin Glargine,Hum.rec.anlog) 100 Unit/1 Ml Insuln.pen 18 Units SQ QHS Humalog (Insulin Lispro) 100 Unit/1 Ml Insuln.pen 10 Units SQ TIDAC Cozaar (Losartan Potassium) 50 Mg Tablet 50 Mg PO DAILY Atorvastatin Calcium 40 Mg Tablet 40 Mg PO QHS Isosorbide Mononitrate Er (Isosorbide Mononitrate) 30 Mg Tab.er.24h 30 Mg PO DAILY Oxycodone Hcl Immed.release (Oxycodone Hcl) 10 Mg Tablet 10 Mg PO PRN Q6HRS PRN Thera-M Tablet (Multivits,Ca,Minerals/Iron/Fa) 1 Each Tablet 1 Tab PO DAILY 30 Days Synthroid (Levothyroxine Sodium) 75 Mcg Tablet 75 Mcg PO DAILY07 30 Days Metoprolol Succinate 50 Mg Tab.er.24h 50 Mg PO DAILY 30 Days Dicyclomine Hcl 10 Mg Capsule 10 Mg PO PRN Q6HRS PRN 30 Days Vitamin B-12 (Cyanocobalamin (Vitamin B-12)) 1,000 Mcg Tablet 1,000 Mcg PO DAILY 30 Days Metoclopramide Hcl 10 Mg/10 Ml Solution 10 Mg PO TIDACHC 30 Days Nitrostat (Nitroglycerin) 0.4 Mg Tab.subl 0.4 Mg SL PRN Q5MIN PRN 30 Days Keppra (Levetiracetam) 500 Mg Tablet 1,000 Mg PO BID 30 Days [Pioglitazone Hcl] 15 MG Tablet 45 Mg PO DAILY Lorazepam 1 Mg Tablet 1 Mg PO PRN TID PRN Ondansetron Odt (Ondansetron) 4 Mg Tab.rapdis 4 Mg PO TIDAC FENTANYL 25mcg/hr (Fentanyl) 1 Each Patch.td72 1 Patch TD Q3DAYS Reported Aspirin 81 Mg Tab.chew 1 Tab PO DAILY Ambien (Zolpidem Tartrate) 5 Mg Tablet 5 Mg PO HS Clopidogrel (Clopidogrel Bisulfate) 75 Mg Tablet 75 Mg PO DAILY Vitals/I & O Vital Sign - Last 24 Hours 12/07/18 12/07/18 12/07/18 12/07/18 15:13 15:30 16:32 18:44 Temp 97.6 97.6 Pulse 107 Resp 18 B/P (MAP) 166/78 (107) Pulse Ox 99 98 98 98 O2 Delivery Room Air Room Air Room Air Room Air 12/07/18 12/07/18 12/07/18 12/07/18 19:00 19:56 21:18 21:50 Temp 97.9 97.9 Pulse 71 71 Resp 18 B/P (MAP) 203/98 (133) 203/98 Pulse Ox 99 O2 Delivery Room Air Room Air Room Air 12/07/18 12/08/18 12/08/18 4/29/19 23:00 00:52 03:00 04:29 Temp 97.9 97.9 97.9 97.9 Pulse 67 78 Resp 18 18 B/P (MAP) 155/88 (110) 168/91 (116) Pulse Ox 98 97 O2 Delivery Room Air Room Air Room Air Room Air 12/08/18 12/08/18 12/08/18 12/08/18 07:00 07:00 07:36 08:00 Temp 97.8 97.8 Pulse 72 Resp 20 B/P (MAP) 146/90 (108) Pulse Ox 98 97 O2 Delivery Room Air Room Air Room Air Room Air 12/08/18 12/08/18 12/08/18 12/08/18 08:09 08:09 08:54 10:41 Pulse 72 Resp 17 B/P (MAP) 146/90 Pulse Ox 97 97 97 O2 Delivery Room Air Room Air Room Air 12/08/18 12/08/18 12/08/18 12/08/18 11:00 12:14 12:21 13:21 Temp 98.3 98.3 Pulse 62 Resp 18 18 B/P (MAP) 175/85 (115) Pulse Ox 98 98 98 O2 Delivery Room Air Room Air Room Air Room Air Intake and Output 12/07/18 12/07/18 12/08/18 14:59 22:59 06:59 Intake Total 1020 ml 540 ml 0 ml Balance 1020 ml 540 ml 0 ml DENICE IZAGUIRRE MD Dec 08, 2018 15:03
[2018-12-08 15:16] VITALS: BP 115/58
[2018-12-08] MEDS: METOCLOPRAMIDE ORAL SOLN 10 MG/10 ML SOLUTION. PO SCH ×2 (17:34→21:01)
[2018-12-08 19:20] VITALS: BP 142/63
[2018-12-08] MEDS ORDERED: ATORVASTATIN CALCIUM 40 MG TABLET. PO SCH (21:00)
[2018-12-08] MEDS: ZOLPIDEM 5 MG TABLET. PO SCH (21:02)
[2018-12-08] MEDS: INSULIN GLARGINE 300 UNITS/3 ML INSULN.PEN. SQ SCH (21:06)
[2018-12-08 23:20] VITALS: BP 157/76
[2018-12-09] MEDS: oxyCODONE IR 5 MG TABLET PO PRN ×3 (00:58→12:56)
[2018-12-09 03:25] VITALS: BP 138/64
[2018-12-09] MEDS: LORazepam 1 MG TABLET PO PRN (05:54)
[2018-12-09] MEDS: LEVOTHYROXINE 75 MCG TABLET PO SCH (05:54)
[2018-12-09 06:25] LABS: BASO # 0.1 x10^3/uL (0.0-0.2); BASO % 1 % (0-3); EOS # 0.1 x10^3/uL (0.0-0.7); EOS % 1 % (0-3); HEMATOCRIT 40.5 % (36.0-47.0); HEMOGLOBIN 13.4 g/dL (12.0-15.5); LYMPH # 2.1 x10^3/uL (1.0-4.8); LYMPH % 32 % (24-48); MEAN CORPUSCULAR HEMOGLOBIN 30 pg (25-35); MEAN CORPUSCULAR HGB CONC 33 g/dL (31-37); MEAN CORPUSCULAR VOLUME 92 fL (79-100); MONO # 0.6 x10^3/uL (0.0-1.1); MONO % 9 % (0-9); NEUT # 3.7 x10^3uL (1.8-7.7); NEUT % 57 % (31-73); PLATELET COUNT 379 x10^3/uL (140-400); RED BLOOD COUNT 4.42 x10^6/uL (3.50-5.40); RED CELL DISTRIBUTION WIDTH 15.6 % (11.5-14.5); WHITE BLOOD COUNT 6.5 x10^3/uL (4.0-11.0)
[2018-12-09 06:50] LABS: CALCIUM 9.6 mg/dL (8.5-10.1); CREATININE 1.1 mg/dL (0.6-1.0); GFR 48.7; POTASSIUM 3.6 mmol/L (3.5-5.1); TOTAL BILIRUBIN 0.4 mg/dL (0.2-1.0); TOTAL PROTEIN 7.9 g/dL (6.4-8.2)
[2018-12-09 07:00] VITALS: BP 142/71
[2018-12-09] MEDS: ONDANSETRON ODT 4 MG TAB.RAPDIS. PO SCH ×2 (07:30→11:49)
[2018-12-09] MEDS: PANTOPRAZOLE 40 MG TABLET.DR. PO SCH (07:47)
[2018-12-09] MEDS: INSULIN LISPRO 300 UNITS/3 ML INSULN.PEN. SQ SCH ×2 (07:47→11:50)
[2018-12-09] MEDS: METOCLOPRAMIDE ORAL SOLN 10 MG/10 ML SOLUTION. PO SCH ×2 (07:47→11:49)
--- NOTE | 2018-12-09 07:50 | NUR ---
Scheduled AM zofran held, patient had PRN dose at 0530.
[2018-12-09] MEDS ORDERED: ISOSORBIDE MONONITRATE ER 30 MG TAB.ER.24H PO SCH (09:00)
[2018-12-09] MEDS ORDERED: MULTIVITAMIN with MINERAL TABLET. PO SCH (09:00)
[2018-12-09] MEDS ORDERED: LOSARTAN POTASSIUM 50 MG TABLET. PO SCH (09:00)
[2018-12-09] MEDS: levETIRAcetam 500 MG TABLET PO SCH (09:01)
[2018-12-09] MEDS: CLOPIDOGREL BISULFATE 75 MG TABLET PO SCH (09:02)
[2018-12-09] MEDS: ASPIRIN CHEWABLE 81 MG TABLET. PO SCH (09:03)
[2018-12-09] MEDS: PIOGLITAZONE 15 MG TABLET. PO SCH (09:03)
[2018-12-09] MEDS: METOPROLOL SUCC 24HR ER 50 MG TAB.ER.24H. PO SCH (09:03)
[2018-12-09] MEDS: CYANOCOBALAMIN (VITAMIN B-12) 1,000 MCG TABLET. PO SCH (10:03)
--- NOTE | 2018-12-09 10:20 | PDOC ---
PROGRESS NOTES Subjective Subjective ate solid food. no nausea and vomiting. feels better. lab reviewed. Objective Objective Vital Signs Date Time Temp Pulse Resp B/P (MAP) Pulse Ox O2 Delivery O2 Flow Rate FiO2 12/09/18 09:03 66 142/71 12/09/18 08:08 18 97 Room Air 12/09/18 07:00 97.5 97.5 Intake and Output 12/09/18 07:00 Intake Total 744 ml Balance 744 ml Intake Oral 744 ml # Voids 7 Physical Exam Abdomen: Soft Heart: Regular rate, Normal S1, Normal S2 Extremities: No edema General: Alert HEENT: Atraumatic Lungs: Clear to auscultation Neuro: Normal speech Psych/Mental Status: Mental status NL Skin: No rashes Assessment Assessment nausea and vomiting due to diabetic gastroparesis improved diabetes mellitus type 2 on insulin hypertension hyperlipidemia coronary artery disease cardiomyopathy LVEF 40 -45% chronic pain. back gamez right ankle pain Plan Plan of Care dismiss today Comment Review of Relevant I have reviewed the following items maldonado (where applicable) has been applied. Labs Laboratory Tests Test 12/07/18 12:09 12/07/18 17:16 12/07/18 20:30 12/08/18 04:00 Glucose (Fingerstick) 189 mg/dL (70-99) 188 mg/dL (70-99) 97 mg/dL (70-99) Sodium Level 142 mmol/L (136-145) Potassium Level 4.0 mmol/L (3.5-5.1) Chloride Level 106 mmol/L (98-107) Carbon Dioxide Level 23 mmol/L (21-32) Anion Gap 13 (6-14) Blood Urea Nitrogen 8 mg/dL (7-20) Creatinine 0.7 mg/dL (0.6-1.0) Estimated GFR (Cockcroft-Gault) 82.0 Glucose Level 184 mg/dL (70-99) Calcium Level 9.3 mg/dL (8.5-10.1) Test 12/08/18 07:23 12/08/18 11:32 12/08/18 16:38 12/08/18 21:05 Glucose (Fingerstick) 202 mg/dL (70-99) 159 mg/dL (70-99) 249 mg/dL (70-99) 129 mg/dL (70-99) Test 12/09/18 04:50 12/09/18 07:15 White Blood Count 6.5 x10^3/uL (4.0-11.0) Red Blood Count 4.42 x10^6/uL (3.50-5.40) Hemoglobin 13.4 g/dL (12.0-15.5) Hematocrit 40.5 % (36.0-47.0) Mean Corpuscular Volume 92 fL (79-100) Mean Corpuscular Hemoglobin 30 pg (25-35) Mean Corpuscular Hemoglobin Concent 33 g/dL (31-37) Red Cell Distribution Width 15.6 % (11.5-14.5) Platelet Count 379 x10^3/uL (140-400) Neutrophils (%) (Auto) 57 % (31-73) Lymphocytes (%) (Auto) 32 % (24-48) Monocytes (%) (Auto) 9 % (0-9) Eosinophils (%) (Auto) 1 % (0-3) Basophils (%) (Auto) 1 % (0-3) Neutrophils # (Auto) 3.7 x10^3uL (1.8-7.7) Lymphocytes # (Auto) 2.1 x10^3/uL (1.0-4.8) Monocytes # (Auto) 0.6 x10^3/uL (0.0-1.1) Eosinophils # (Auto) 0.1 x10^3/uL (0.0-0.7) Basophils # (Auto) 0.1 x10^3/uL (0.0-0.2) Sodium Level 141 mmol/L (136-145) Potassium Level 3.6 mmol/L (3.5-5.1) Chloride Level 102 mmol/L (98-107) Carbon Dioxide Level 26 mmol/L (21-32) Anion Gap 13 (6-14) Blood Urea Nitrogen 14 mg/dL (7-20) Creatinine 1.1 mg/dL (0.6-1.0) Estimated GFR (Cockcroft-Gault) 48.7 BUN/Creatinine Ratio 13 (6-20) Glucose Level 214 mg/dL (70-99) Calcium Level 9.6 mg/dL (8.5-10.1) Magnesium Level 2.0 mg/dL (1.8-2.4) Total Bilirubin 0.4 mg/dL (0.2-1.0) Aspartate Amino Transf (AST/SGOT) 18 U/L (15-37) Alanine Aminotransferase (ALT/SGPT) 23 U/L (14-59) Alkaline Phosphatase 121 U/L (46-116) Total Protein 7.9 g/dL (6.4-8.2) Albumin 4.0 g/dL (3.4-5.0) Albumin/Globulin Ratio 1.0 (1.0-1.7) Glucose (Fingerstick) 239 mg/dL (70-99) Laboratory Tests Test 12/08/18 11:32 12/08/18 16:38 12/08/18 21:05 12/09/18 04:50 Glucose (Fingerstick) 159 mg/dL (70-99) 249 mg/dL (70-99) 129 mg/dL (70-99) White Blood Count 6.5 x10^3/uL (4.0-11.0) Red Blood Count 4.42 x10^6/uL (3.50-5.40) Hemoglobin 13.4 g/dL (12.0-15.5) Hematocrit 40.5 % (36.0-47.0) Mean Corpuscular Volume 92 fL (79-100) Mean Corpuscular Hemoglobin 30 pg (25-35) Mean Corpuscular Hemoglobin Concent 33 g/dL (31-37) Red Cell Distribution Width 15.6 % (11.5-14.5) Platelet Count 379 x10^3/uL (140-400) Neutrophils (%) (Auto) 57 % (31-73) Lymphocytes (%) (Auto) 32 % (24-48) Monocytes (%) (Auto) 9 % (0-9) Eosinophils (%) (Auto) 1 % (0-3) Basophils (%) (Auto) 1 % (0-3) Neutrophils # (Auto) 3.7 x10^3uL (1.8-7.7) Lymphocytes # (Auto) 2.1 x10^3/uL (1.0-4.8) Monocytes # (Auto) 0.6 x10^3/uL (0.0-1.1) Eosinophils # (Auto) 0.1 x10^3/uL (0.0-0.7) Basophils # (Auto) 0.1 x10^3/uL (0.0-0.2) Sodium Level 141 mmol/L (136-145) Potassium Level 3.6 mmol/L (3.5-5.1) Chloride Level 102 mmol/L (98-107) Carbon Dioxide Level 26 mmol/L (21-32) Anion Gap 13 (6-14) Blood Urea Nitrogen 14 mg/dL (7-20) Creatinine 1.1 mg/dL (0.6-1.0) Estimated GFR (Cockcroft-Gault) 48.7 BUN/Creatinine Ratio 13 (6-20) Glucose Level 214 mg/dL (70-99) Calcium Level 9.6 mg/dL (8.5-10.1) Magnesium Level 2.0 mg/dL (1.8-2.4) Total Bilirubin 0.4 mg/dL (0.2-1.0) Aspartate Amino Transf (AST/SGOT) 18 U/L (15-37) Alanine Aminotransferase (ALT/SGPT) 23 U/L (14-59) Alkaline Phosphatase 121 U/L (46-116) Total Protein 7.9 g/dL (6.4-8.2) Albumin 4.0 g/dL (3.4-5.0) Albumin/Globulin Ratio 1.0 (1.0-1.7) Test 12/09/18 07:15 Glucose (Fingerstick) 239 mg/dL (70-99) Medications Current Medications Potassium Chloride/Dextrose/ Sod Cl 1,000 ml @ 75 mls/hr [id number] IV Last administered on 12/08/18at 08:58; Start 12/06/18 at 17:30; Stop 12/08/18 at 11:01; Status DC Ondansetron HCl (Zofran) 4 mg PRN Q4HRS PRN IV NAUSEA/VOMITING Last administered on 12/08/18at 07:44; Start 12/06/18 at 17:30 Levetiracetam 1000 mg/Dextrose 110 ml @ 440 mls/hr Q12HR IV Last administered on 12/08/18at 08:54; Start 12/06/18 at 17:30; Stop 12/08/18 at 12:01; Status DC Fentanyl Citrate (Fentanyl 2ml Vial) 50 mcg PRN Q3HRS PRN IV PAIN Last administered on 12/08/18 10:41; Start 12/06/18 at 17:30; Stop 12/08/18 at 11:25; Status DC Acetaminophen/ Hydrocodone Bitart (Lortab 5/325) 1 tab PRN Q4HRS PRN PO PAIN Last administered on 12/08/18 07:00; Start 12/06/18 at 18:15; Stop 12/08/18 at 11:25; Status DC Ondansetron HCl (Zofran Odt) 4 mg PRN Q6HRS PRN PO NAUSEA/VOMITING, 1st CHOICE Last administered on 12/09/18 05:35; Start 12/06/18 at 18:15 Promethazine HCl (Phenergan) 12.5 mg PRN Q6HRS PRN PO NAUSEA/VOMITING, 2nd CHOICE; Start 12/06/18 at 18:15 Levothyroxine Sodium (Synthroid) 75 mcg DAILY07 PO Last administered on 12/09/18 05:54; Start 12/07/18 at 07:00 Lorazepam (Ativan) 1 mg PRN TID PRN PO ANXIETY / AGITATION Last administered on 12/09/18 05:54; Start 12/06/18 at 20:45 Zolpidem Tartrate (Ambien) 5 mg HS PO Last administered on 12/08/18 21:02; Start 12/06/18 at 21:00 Insulin Glargine (Lantus) 18 units QHS SQ Last administered on 12/08/18at 21:06; Start 12/06/18 at 21:00 Insulin Human Lispro (HumaLOG) 10 units TIDAC SQ Last administered on 12/09/18at 07:47; Start 12/07/18 at 07:30 Dextrose (Dextrose 50%-Water Syringe) 12.5 gm PRN Q15MIN PRN IV SEE COMMENTS; Start 12/06/18 at 21:00 Metoprolol Succinate (Toprol Xl) 50 mg BID PO Last administered on 12/09/18at 09:03; Start 12/07/18 at 09:00 Metoprolol Succinate (Toprol Xl) 50 mg HS PO ; Start 12/07/18 at 21:00; Status UNV Sodium Chloride 1,000 ml @ 40 mls/hr Q24H IV ; Start 12/08/18 at 11:30 Aspirin (Children'S Aspirin) 81 mg DAILY PO Last administered on 12/09/18 09:03; Start 12/08/18 at 12:00 Atorvastatin Calcium (Lipitor) 40 mg QHS PO Last administered on 12/08/18 21:02; Start 12/08/18 at 21:00 Clopidogrel Bisulfate (Plavix) 75 mg DAILY PO Last administered on 12/09/18 09:02; Start 12/08/18 at 12:00 Cyanocobalamin (Vitamin B-12) 1,000 mcg DAILY PO Last administered on 12/09/18 10:03; Start 12/08/18 at 12:00 Dicyclomine HCl (Bentyl) 10 mg PRN Q6HRS PRN PO abdominal cramps; Start 12/08/18 at 11:15 Fentanyl (Duragesic 25mcg/ Hr Patch) 1 patch Q3DAYS TD Last administered on 12/08/18 12:14; Start 12/08/18 at 12:00 Isosorbide Mononitrate (Imdur) 30 mg DAILY PO Last administered on 12/09/18 09:01; Start 12/09/18 at 09:00 Levetiracetam (Keppra) 1,000 mg BID PO Last administered on 12/09/18 09:01; Start 12/08/18 at 12:00 Losartan Potassium (Cozaar) 50 mg DAILY PO Last administered on 12/09/18 09:00; Start 12/09/18 at 09:00 Metoclopramide HCl (Reglan Oral Solution) 10 mg TIDACHC PO Last administered on 12/08/18 12:13; Start 12/08/18 at 11:30; Stop 12/08/18 at 13:01; Status DC Multivitamins (Thera M Plus) 1 tab DAILY PO Last administered on 12/09/18 08:59; Start 12/09/18 at 09:00 Nitroglycerin (Nitrostat) 0.4 mg PRN Q5MIN PRN SL CHEST PAIN; Start 12/08/18 at 11:15 Ondansetron HCl (Zofran Odt) 4 mg TIDAC PO Last administered on 12/08/18 17:34; Start 12/08/18 at 11:30 Oxycodone HCl (Roxicodone) 10 mg PRN Q6HRS PRN PO PAIN Last administered on 12/09/18 07:02; Start 12/08/18 at 11:45 Pioglitazone HCl (Actos) 45 mg DAILY PO Last administered on 12/09/18 09:03; Start 12/08/18 at 12:00 Metoclopramide HCl (Reglan Oral Solution) 10 mg QIDACHS PO Last administered on 12/09/18 07:47; Start 12/08/18 at 16:30 Pantoprazole Sodium (Protonix) 40 mg DAILYAC PO Last administered on 12/09/18 07:47; Start 12/08/18 at 13:30 Active Scripts Active Lantus Solostar (Insulin Glargine,Hum.rec.anlog) 100 Unit/1 Ml Insuln.pen 18 Units SQ QHS Humalog (Insulin Lispro) 100 Unit/1 Ml Insuln.pen 10 Units SQ TIDAC Cozaar (Losartan Potassium) 50 Mg Tablet 50 Mg PO DAILY Atorvastatin Calcium 40 Mg Tablet 40 Mg PO QHS Isosorbide Mononitrate Er (Isosorbide Mononitrate) 30 Mg Tab.er.24h 30 Mg PO D AILY Oxycodone Hcl Immed.release (Oxycodone Hcl) 10 Mg Tablet 10 Mg PO PRN Q6HRS PRN Thera-M Tablet (Multivits,Ca,Minerals/Iron/Fa) 1 Each Tablet 1 Tab PO DAILY 30 Days Synthroid (Levothyroxine Sodium) 75 Mcg Tablet 75 Mcg PO DAILY07 30 Days Metoprolol Succinate 50 Mg Tab.er.24h 50 Mg PO DAILY 30 Days Dicyclomine Hcl 10 Mg Capsule 10 Mg PO PRN Q6HRS PRN 30 Days Vitamin B-12 (Cyanocobalamin (Vitamin B-12)) 1,000 Mcg Tablet 1,000 Mcg PO DAILY 30 Days Metoclopramide Hcl 10 Mg/10 Ml Solution 10 Mg PO TIDACHC 30 Days Nitrostat (Nitroglycerin) 0.4 Mg Tab.subl 0.4 Mg SL PRN Q5MIN PRN 30 Days Keppra (Levetiracetam) 500 Mg Tablet 1,000 Mg PO BID 30 Days [Pioglitazone Hcl] 15 MG Tablet 45 Mg PO DAILY Lorazepam 1 Mg Tablet 1 Mg PO PRN TID PRN Ondansetron Odt (Ondansetron) 4 Mg Tab.rapdis 4 Mg PO TIDAC FENTANYL 25mcg/hr (Fentanyl) 1 Each Patch.td72 1 Patch TD Q3DAYS Reported Aspirin 81 Mg Tab.chew 1 Tab PO DAILY Ambien (Zolpidem Tartrate) 5 Mg Tablet 5 Mg PO HS Clopidogrel (Clopidogrel Bisulfate) 75 Mg Tablet 75 Mg PO DAILY Vitals/I & O Vital Sign - Last 24 Hours 12/08/18 12/08/18 12/08/18 12/08/18 10:41 11:00 12:14 12:21 Temp 98.3 98.3 Pulse 62 Resp 17 18 B/P (MAP) 175/85 (115) Pulse Ox 97 98 98 98 O2 Delivery Room Air Room Air Room Air Room Air 12/08/18 12/08/18 12/08/18 12/08/18 15:16 17:37 18:42 19:20 Temp 98.1 98.5 98.1 98.5 Pulse 68 67 Resp 18 18 B/P (MAP) 115/58 (77) 142/63 (89) Pulse Ox 97 97 97 95 O2 Delivery Room Air Room Air Room Air Room Air 12/08/18 12/08/18 12/08/18 12/09/18 19:58 21:04 23:20 00:58 Temp 98.2 98.2 Pulse 67 62 Resp 18 B/P (MAP) 142/63 157/76 (103) Pulse Ox 92 O2 Delivery Room Air Room Air Room Air 12/09/18 12/09/18 12/09/18 12/09/18 03:25 07:00 07:02 08:04 Temp 98.4 97.5 98.4 97.5 Pulse 60 66 Resp 18 18 B/P (MAP) 138/64 (88) 142/71 (94) Pulse Ox 94 97 O2 Delivery Room Air Room Air Room Air Room Air 12/09/18 12/09/18 12/09/18 12/09/18 08:08 09:00 09:01 09:03 Pulse 66 66 66 Resp 18 B/P (MAP) 142/71 142/71 142/71 Pulse Ox 97 O2 Delivery Room Air Intake and Output 12/08/18 12/08/18 12/09/18 15:00 23:00 07:00 Intake Total 384 ml 360 ml Balance 384 ml 360 ml DENICE IZAGUIRRE MD Dec 09, 2018 10:20
[2018-12-09] MEDS ORDERED: Pantoprazole PO (10:24)
--- NOTE | 2018-12-09 10:26 | DISCH ---
DISCHARGE INSTRUCTIONS Condition on Discharge Condition on Discharge: Stable Activity After Discharge Activity Instructions for Disc: Activity as tolerated Bathing Instructions: No Tub Bath until see Lifting Instructions after Dis: No heavy lifting Exercise Instruction after Dis: Progress as tolerated Driving Instructions after Dis: Do not drive Weight Bearing Status after Di: As tolerated Diet after Discharge Diet after Discharge: Cardiac, Diabetic No Calorie Level Diet Texture: Regular Liquid Texture: Thin Liquid Swallowing Supervision: None needed Wound Incision Care Wound/Incision Care: Change dressing, May get incision wet Checks after Discharge Checks after discharge: Check blood press - daily Contacting the [facility] after DC Call your doctor for: If your condition worsens Follow-Up Follow up with: dr. izaguirre on 12/12/18 Treatment/Equipment after DC Adaptive Equipment Issued: None DENICE IZAGUIRRE MD Dec 09, 2018 10:26
--- NOTE | 2018-12-09 10:30 | PDOC ---
Provider Note Provider Note discharge summary dictated # [id number] DENICE IZAGUIRRE MD Dec 09, 2018 10:30
[2018-12-09 11:00] VITALS: BP 128/61
[2018-12-09] MEDS: IV 1/2 NORMAL SALINE 1,000 ML IV SCH (11:30)
--- NOTE | 2018-12-09 11:47 | PDOC ---
Subjective: Subjective: Feels better today - tolerating diet without issue, says she gets to go home. Objective: Vital Signs: Vital Signs Date Time Temp Pulse Resp B/P (MAP) Pulse Ox O2 Delivery O2 Flow Rate FiO2 12/09/18 09:03 66 142/71 12/09/18 08:08 18 97 Room Air 12/09/18 07:00 97.5 97.5 Labs: Laboratory Tests Test 12/08/18 16:38 12/08/18 21:05 12/09/18 04:50 12/09/18 07:15 Glucose (Fingerstick) 249 mg/dL 129 mg/dL 239 mg/dL White Blood Count 6.5 x10^3/uL Red Blood Count 4.42 x10^6/uL Hemoglobin 13.4 g/dL Hematocrit 40.5 % Mean Corpuscular Volume 92 fL Mean Corpuscular Hemoglobin 30 pg Mean Corpuscular Hemoglobin Concent 33 g/dL Red Cell Distribution Width 15.6 % Platelet Count 379 x10^3/uL Neutrophils (%) (Auto) 57 % Lymphocytes (%) (Auto) 32 % Monocytes (%) (Auto) 9 % Eosinophils (%) (Auto) 1 % Basophils (%) (Auto) 1 % Neutrophils # (Auto) 3.7 x10^3uL Lymphocytes # (Auto) 2.1 x10^3/uL Monocytes # (Auto) 0.6 x10^3/uL Eosinophils # (Auto) 0.1 x10^3/uL Basophils # (Auto) 0.1 x10^3/uL Sodium Level 141 mmol/L Potassium Level 3.6 mmol/L Chloride Level 102 mmol/L Carbon Dioxide Level 26 mmol/L Anion Gap 13 Blood Urea Nitrogen 14 mg/dL Creatinine 1.1 mg/dL Estimated GFR (Cockcroft-Gault) 48.7 BUN/Creatinine Ratio 13 Glucose Level 214 mg/dL Calcium Level 9.6 mg/dL Magnesium Level 2.0 mg/dL Total Bilirubin 0.4 mg/dL Aspartate Amino Transf (AST/SGOT) 18 U/L Alanine Aminotransferase (ALT/SGPT) 23 U/L Alkaline Phosphatase 121 U/L Total Protein 7.9 g/dL Albumin 4.0 g/dL Albumin/Globulin Ratio 1.0 PE: GEN: NAD LUNGS: CTAB HEART: RRR, ABD: NABS, S/ND/NT NEURO/PSYCH: A & O 3 A/P: N/v -- N/v improved w/ plans to DC. Would continue Reglan susp QIDACHS at home along w/ PPI for h/o gastroparesis and GERD. Follow-up w/ endocrinology as planned. AMEENA CASTRO Dec 09, 2018 11:47
--- NOTE | 2018-12-09 13:32 | NUR ---
Discharge Note: ORLIN ROJAS S [address] [place] [address] Discharge instructions and discharge home medications reviewed with Patient and a copy given. All questions have been answered and understanding verbalized. The following instructions and handouts were given: diet, activity, medication list, and follow up instructions given to patient. Discontinued lines and drains: Peripheral IV discontinued and catheter intact. Patient discharged to Home or Self Care with Spouse via Ambulated
--- NOTE | 2018-12-09 15:27 | DS ---
DATE OF DISCHARGE: 12/09/[address] Edwards. FINAL DIAGNOSES: 1. Intractable nausea and vomiting secondary to diabetic gastroparesis. 2. Diabetes mellitus type 2. 3. Hypertension. 4. Hyperlipidemia. 5. Coronary artery disease. 6. Osteoporosis. HOSPITAL COURSE: The patient is a 73-year-old white female with history of diabetes mellitus type 2 with diabetic gastroparesis, hypertension, hyperlipidemia, coronary artery disease, who was admitted to [facility] Emergency Room on 12/07/2018 with intractable nausea and vomiting. The patient's Reglan and Zofran were resumed, and she was started on a full liquid diet, and the diet was eventually advanced to solid foods, and she tolerated well for dinner last night and breakfast this morning, feels much better and wants to go home. She was seen by Dr. Edwards for GI in consultation. She will be dismissed to home on same medication she was taking before admission. She will be on Protonix 40 mg every day. She will be dismissed on dicyclomine 10 mg every 6 hours p.r.n., Plavix 75 mg every day, atorvastatin 40 mg at bedtime, isosorbide mononitrate 30 mg every day, nitroglycerin 0.4 mg sublingual p.r.n., metoprolol succinate 50 mg every day, losartan 50 mg every day, aspirin 325 mg every day, fentanyl 25 mcg patch every 72 hours, oxycodone 10 mg every 8 hours p.r.n., Keppra 1000 mg b.i.d., lorazepam 1 mg t.i.d. p.r.n., Ambien 5 mg at bedtime p.r.n., Zofran 4 mg before meals t.i.d., Reglan 10 mg before meals t.i.d. and at bedtime. Lantus insulin 18 units at bedtime, Humalog 10 units before meals t.i.d., levothyroxine 75 mcg every day, vitamin B12 of 1000 mcg every day, multivitamin with minerals once a day and Actos 45 mg every day. She has an appointment to see Dr. Masters in the office on 12/12 and will be dismissed on a cardiac diabetic diet. DENICE MASTERS MD DR: Mino JOB#: [id number] / [id number]
== END 2018-12-09 13:30 | disposition home or self-care (01) | DRG 74 ==
LOC: 6 SOUTH 16:14
PROVIDERS: ADMIT Internal Medicine; ATTEND Internal Medicine
DX: E11.43 Type 2 diabetes mellitus with diabetic autonomic (poly)neuropathy (principal); I42.9 Cardiomyopathy, unspecified; K31.84 Gastroparesis; E11.42 Type 2 diabetes mellitus with diabetic polyneuropathy; E11.65 Type 2 diabetes mellitus with hyperglycemia; I10 Essential (primary) hypertension; E78.5 Hyperlipidemia, unspecified; I25.10 Atherosclerotic heart disease of native coronary artery without angina pectoris; G40.909 Epilepsy, unspecified, not intractable, without status epilepticus; Z96.651 Presence of right artificial knee joint; M81.0 Age-related osteoporosis without current pathological fracture; G89.29 Other chronic pain; K57.90 Diverticulosis of intestine, part unspecified, without perforation or abscess without bleeding; K21.9 Gastro-esophageal reflux disease without esophagitis; Z79.4 Long term (current) use of insulin; Z87.442 Personal history of urinary calculi; Z95.1 Presence of aortocoronary bypass graft; Z95.5 Presence of coronary angioplasty implant and graft; Z79.899 Other long term (current) drug therapy; Z90.49 Acquired absence of other specified parts of digestive tract; Z88.0 Allergy status to penicillin; Z88.8 Allergy status to other drugs, medicaments and biological substances; Z88.1 Allergy status to other antibiotic agents; Z91.041 Radiographic dye allergy status; Z79.02 Long term (current) use of antithrombotics/antiplatelets; Z79.890 Hormone replacement therapy; Z79.891 Long term (current) use of opiate analgesic; Z79.82 Long term (current) use of aspirin
CPT/HCPCS: 36415; 80048; 80053; 82962; 83615; 83690; 83735; 85025; 85027; J1815; J1953; J2405; J3010; J8597; Q0162

== ENCOUNTER 2019-06-08 13:54 | Emergency (ER) | payer MEDICARE, OTHER ==
[~2019-06-08] VITALS: Ht 147.3 cm; Wt 70.8 kg
[~2019-06-08 13:54] MED LIST changes: +ASPI-630 PO; -CLON1TAB11 PO; +CLONAZEPAM1 MG PO; +CYAN-25 PO; -CYAN10005 PO; +LIDO700A21 TP; -LINE600T PO; +LINE600T12 PO; +METO-269 PO; -NITR0.4T SL; +NITR0.4T24 SL; +ORPH100T PO; -PANT40TA5 PO; +PANT40TA77 PO; +Pantoprazole PO
--- NOTE | 2019-06-08 15:53 | RAD ---
HIP RIGHT 2V WITH PELVIS History: Fall. Pain. Technique: AP view the pelvis and 2 additional views of the right hip. Comparison: None. Findings: Normal alignment. No fracture. Sacral stimulator noted. Lower lumbar spondylosis. Mild pubic symphysis DJD. Impression: 1. No acute osseous abnormality. Electronically signed by: Diego Valles DO (06/08/2019 3:50 PM) [facility]
[2019-06-08] MEDS ORDERED: CYCLOBENZAPRINE 10 MG TABLET. PO ONE (16:15)
[2019-06-08] MEDS ORDERED: HYDROcodone/APAP 5/325MG 1 TAB TABLET PO ONE (16:15)
--- NOTE | 2019-06-08 16:15 | RAD ---
Exam: CT head, maxillofacial and cervical spine INDICATION: Fall TECHNIQUE: Sequential axial images through the head, maxillofacial and cervical spine were obtained without the administration of IV contrast. Comparisons: None FINDINGS: Head: No focal parenchymal lesion or hemorrhage is identified. There is no midline shift or sulcal effacement. Patchy hypodensities noted within the periventricular and subcortical white matter. No acute vascular territory infarction is identified. Dalton-white distinction is preserved. The ventricular system is within normal limits without compression hydrocephalus. The basal cisterns are well maintained. Face: Mild soft tissue contusion overlying the right frontal region. The visualized portions of the paranasal sinuses and mastoid air cells are well-pneumatized. No acute fractures. Cervical spine: Vertebral body heights and alignment are well-maintained. Fracture to the cervical spine is not identified. Bilateral facet arthropathy is noted throughout cervical spine. Visualized paraspinal soft tissues are unremarkable. IMPRESSION: 1. Extra cranial soft tissue contusion overlying the right frontal region 2. No acute intracranial abnormality. 3. Negative CT C-spine for acute traumatic injury. Exposure: One or more of the following in the visualized dose reduction techniques were utilized for this examination: 1. Automated exposure control 2. Adjustment of the MA and/or KV according to patient size Use of iterative of reconstructive technique Electronically signed by: Jeanna Agustin MD (06/08/2019 4:12 PM) [facility] [place]
--- NOTE | 2019-06-08 16:31 | RAD ---
CT LUMBAR SPINE WO CONTRAST History: Fall. Low back pain. Technique: Noncontrast CT was performed of the lumbar spine. Multiplanar reconstructions were performed. Exposure: One or more of the following individualized dose reduction techniques were utilized for this examination: 1. Automated exposure control 2. Adjustment of the mA and/or kV according to patient size 3. Use of iterative reconstruction technique. Comparison: September 09, 2018. Findings: L1 compression fracture with interval vertebral plasty material placement, unchanged height loss. Unchanged retropulsion. Chronic L2 compression fracture with vertebroplasty. No new fracture. Multilevel lumbar degenerative disc changes most prominent L4-L5 and L5-S1. Vacuum disc phenomenon T11-T12 and T12-L1. Moderate to advanced L4-L5 and L5-S1 facet arthropathy. Multilevel neural foraminal narrowing most prominent L5-S1. No high-grade canal stenosis. Evaluation of the lower thecal sac degraded by spinal stimulator. Sacral and spinal stimulator noted. Impression: 1. No acute fracture or subluxation of the lumbar spine. 2. Chronic L1 and L2 compression fractures with vertebroplasty material. 3. Multilevel lumbar spondylosis. Electronically signed by: Diego Valles DO (06/08/2019 4:28 PM) [facility]
--- NOTE | 2019-06-08 16:57 | PHYS DOC ---
Past Medical History Past Medical History: CAD, Seizure, Other Additional Past Medical Histor: Gastroparesis, CHRONIC PAIN, COMPRESSION FX Past Surgical History: Other Additional Past Surgical Histo: BACK SURGERY Alcohol Use: None Drug Use: None Adult General Chief Complaint Chief Complaint: MECHANICAL FALL HPI HPI Patient is a 73 year old female with multiple medical conditions including chronic low back pain and lumbar laminectomies who presents to the ED today complaining of falling. Patient states she was getting dressed in her bedroom when she accidentally fell. Patient states she hit her right forehead on her chest. Patient denies any loss of consciousness. She states she tried following up with her own PCP for chronic back pain but the PCP referred her to a pain clinic. She states she followed up with pain clinic for her back pain but the doctor at [facility] will not give her any pain medicine because of the ROGERS. She reports moderate low back pain and right hip pain. States pain is worse on weight-bearing that she states she was able to ambulate after she fell with the help of the . She has a laceration on the right cheek. Patient denies pain radiating to bilateral lower extremities. Denies any loss of bowel bladder function. Review of Systems Review of Systems Constitutional: Denies fever or chills [] Eyes: Denies change in visual acuity, redness, or eye pain [] HENT: Denies nasal congestion or sore throat [] Respiratory: Denies cough or shortness of breath [] Cardiovascular: No additional information not addressed in HPI [] GI: Denies abdominal pain, nausea, vomiting, bloody stools or diarrhea [] : Denies dysuria or hematuria [] Musculoskeletal: Reports falling. Reports low back pain and right hip pain Integument: Right cheek laceration Neurologic: Denies headache, focal weakness or sensory changes [] All other systems were reviewed and found to be within normal limits, except as documented in this note. Current Medications Current Medications Current Medications Medications (Trade) Dose Ordered Sig/[facility] Start Time Stop Time Status Last Admin Dose Admin Acetaminophen/ Hydrocodone Bitart (Lortab 5/325) 2 tab 1X ONCE 06/08/19 16:15 06/08/19 16:16 DC 06/08/19 16:25 2 TAB Cyclobenzaprine HCl (Flexeril) 10 mg 1X ONCE 06/08/19 16:15 10/28/19 16:16 DC 06/08/19 16:25 10 MG Allergies Allergies Allergies Coded Allergies Type Severity Reaction Last Updated Verified Iodinated Contrast Media Allergy Severe Anaphylaxis 05/27/18 Yes Penicillins Allergy Intermediate 05/27/18 Yes atenolol Allergy Intermediate TAKES METOPROLOL AT HOME 05/27/18 Yes erythromycin base Allergy Intermediate 05/27/18 Yes iodine Allergy Intermediate 05/27/18 Yes levofloxacin Allergy Intermediate 05/27/18 Yes pregabalin Allergy Intermediate 05/27/16 Yes Physical Exam Physical Exam Constitutional: Well developed, well nourished, no acute distress, non-toxic appearance. [] HENT: Normocephalic, atraumatic, bilateral external ears normal, oropharynx m oist, no oral exudates, nose normal. [] Eyes: PERRLA, EOMI, conjunctiva normal, no discharge. [] Neck: Normal range of motion, no tenderness, supple, no stridor. [] Cardiovascular:Heart rate regular rhythm, no murmur [] Lungs & Thorax: Bilateral breath sounds clear to auscultation [] Abdomen: Bowel sounds normal, soft, no tenderness, no masses, no pulsatile masses. [] Skin: Warm, dry, right cheek with a superficial laceration approximately 1 cm long. Back: Old healed incision sites noted on the low lumbar spine, diffuse paraspinal muscle tenderness in the lumbar spine as well as slight midline lumbar spine tenderness, no CVA tenderness. [] Extremities: No tenderness, no cyanosis, no clubbing, ROM intact, no edema. [] Neurologic: Alert and oriented X 3, normal motor function, normal sensory function, no focal deficits noted. Cranial nerves II through XII intact Psychologic: Affect normal, judgement normal, mood normal. [] Current Patient Data Vital Signs Vital Signs Date Time Temp Pulse Resp B/P (MAP) Pulse Ox O2 Delivery O2 Flow Rate FiO2 06/08/19 16:25 Room Air 06/08/19 14:40 97.6 59 12 204/98 (133) 97 97.6 EKG EKG [] Radiology/Procedures Radiology/Procedures []PROCEDURE: CT HEAD AND CERVICAL SPINE WO Exam: CT head, maxillofacial and cervical spine INDICATION: Fall TECHNIQUE: Sequential axial images through the head, maxillofacial and cervical spine were obtained without the administration of IV contrast. Comparisons: None FINDINGS: Head: No focal parenchymal lesion or hemorrhage is identified. There is no midline shift or sulcal effacement. Patchy hypodensities noted within the periventricular and subcortical white matter. No acute vascular territory infarction is identified. Dalton-white distinction is preserved. The ventricular system is within normal limits without compression hydrocephalus. The basal cisterns are well maintained. Face: Mild soft tissue contusion overlying the right frontal region. The visualized portions of the paranasal sinuses and mastoid air cells are well-pneumatized. No acute fractures. Cervical spine: Vertebral body heights and alignment are well-maintained. Fracture to the cervical spine is not identified. Bilateral facet arthropathy is noted throughout cervical spine. Visualized paraspinal soft tissues are unremarkable. IMPRESSION: 1. Extra cranial soft tissue contusion overlying the right frontal region 2. No acute intracranial abnormality. 3. Negative CT C-spine for acute traumatic injury. Exposure: One or more of the following in the visualized dose reduction techniques were utilized for this examination: 1. Automated exposure control 2. Adjustment of the MA and/or KV according to patient size Use of iterative of reconstructive technique Electronically signed by: Jeanna Clemente MD (06/08/2019 4:12 PM) [facility] [place] DICTATED and SIGNED BY: JEANNA CLEMENTE MD DATE: 06/08/19 1612 PROCEDURE: CT LUMBAR SPINE WO CONTRAST CT LUMBAR SPINE WO CONTRAST History: Fall. Low back pain. Technique: Noncontrast CT was performed of the lumbar spine. Multiplanar reconstructions were performed. Exposure: One or more of the following individualized dose reduction techniques were utilized for this examination: 1. Automated exposure control 2. Adjustment of the mA and/or kV according to patient size 3. Use of iterative reconstruction technique. Comparison: September 09, 2018. Findings: L1 compression fracture with interval vertebral plasty material placement, unchanged height loss. Unchanged retropulsion. Chronic L2 compression fracture with vertebroplasty. No new fracture. Multilevel lumbar degenerative disc changes most prominent L4-L5 and L5-S1. Vacuum disc phenomenon T11-T12 and T12-L1. Moderate to advanced L4-L5 and L5-S1 facet arthropathy. Multilevel neural foraminal narrowing most prominent L5-S1. No high-grade canal stenosis. Evaluation of the lower thecal sac degraded by spinal stimulator. Sacral and spinal stimulator noted. Impression: 1. No acute fracture or subluxation of the lumbar spine. 2. Chronic L1 and L2 compression fractures with vertebroplasty material. 3. Multilevel lumbar spondylosis. Electronically signed by: Diego Valles DO (06/08/2019 4:28 PM) [facility] DICTATED and SIGNED BY: DIEGO VALLES DO DATE: 06/08/19 1628 PROCEDURE: CT MAXILLOFACIAL WO CONTRAST Exam: CT head, maxillofacial and cervical spine INDICATION: Fall TECHNIQUE: Sequential axial images through the head, maxillofacial and cervical spine were obtained without the administration of IV contrast. Comparisons: None FINDINGS: Head: No focal parenchymal lesion or hemorrhage is identified. There is no midline shift or sulcal effacement. Patchy hypodensities noted within the periventricular and subcortical white matter. No acute vascular territory infarction is identified. Dalton-white distinction is preserved. The ventricular system is within normal limits without compression hydrocephalus. The basal cisterns are well maintained. Face: Mild soft tissue contusion overlying the right frontal region. The visualized portions of the paranasal sinuses and mastoid air cells are well-pneumatized. No acute fractures. Cervical spine: Vertebral body heights and alignment are well-maintained. Fracture to the cervical spine is not identified. Bilateral facet arthropathy is noted throughout cervical spine. Visualized paraspinal soft tissues are unremarkable. IMPRESSION: 1. Extra cranial soft tissue contusion overlying the right frontal region 2. No acute intracranial abnormality. 3. Negative CT C-spine for acute traumatic injury. Exposure: One or more of the following in the visualized dose reduction techniques were utilized for this examination: 1. Automated exposure control 2. Adjustment of the MA and/or KV according to patient size Use of iterative of reconstructive technique Electronically signed by: Jeanna Clemente MD (06/08/2019 4:12 PM) [facility] [place] DICTATED and SIGNED BY: JEANNA CLEMENTE MD DATE: 06/08/19 1612 PROCEDURE: HIP RIGHT 2V WITH PELVIS HIP RIGHT 2V WITH PELVIS History: Fall. Pain. Technique: AP view the pelvis and 2 additional views of the right hip. Comparison: None. Findings: Normal alignment. No fracture. Sacral stimulator noted. Lower lumbar spondylosis. Mild pubic symphysis DJD. Impression: 1. No acute osseous abnormality. Electronically signed by: Diego Valles DO (06/08/2019 3:50 PM) [facility] DICTATED and SIGNED BY: DIEGO VALLES DO DATE: 06/08/19 1550 Course & Med Decision Making Course & Med Decision Making Pertinent Labs and Imaging studies reviewed. (See chart for details) This is a 73-year-old female patient presenting to the ED today with low back pain, right hip pain and superficial laceration to the face after falling today. No loss of consciousness. CT of the head, cervical spine, maxillofacial lumbar spine are negative for any acute findings. Right hip x-rays including pelvis are negative for any acute findings. Patient was discharged to home. Ice elevation encouraged. Encouraged to continue following up with her pain clinic. Dragon Disclaimer Dragon Disclaimer This electronic medical record was generated, in whole or in part, using a voice recognition dictation system. Departure Departure Impression: Primary Impression: Fall from standing Additional Impressions: Low back pain Facial laceration Contusion of right hip Disposition: HOME, SELF-CARE Condition: STABLE Referrals: SATHYA PACHECO DO (PCP) Patient Instructions: Back Pain, Adult, Fall Prevention and Home Safety Additional Instructions: You were evaluated in the emergency room for pain after falling. Your CT of the head, thoracic, face, and lumbar spine were negative for any acute findings. Your right hip x-rays including pelvis were negative. Please continue following up with your pain clinic doctor. Problem Qualifiers Primary Impression: Fall from standing Encounter type: initial encounter Qualified Codes: W19.XXXA - Unspecified fall, initial encounter Additional Impressions: Low back pain Chronicity: acute Back pain laterality: bilateral Sciatica presence: without sciatica Qualified Codes: M54.5 - Low back pain Facial laceration Encounter type: initial encounter Qualified Codes: S01.81XA - Laceration without foreign body of other part of head, initial encounter Contusion of right hip Encounter type: initial encounter Qualified Codes: S70.01XA - Contusion of right hip, initial encounter LO VELA LEGAL BILLER Jun 08, 2019 16:57
[2019-06-08 16:58] VITALS: BP 162/78
== END 2019-06-08 17:00 | disposition home or self-care (01) ==
LOC: ER 13:54
DX: S01.411A Laceration without foreign body of right cheek and temporomandibular area, initial encounter (principal); S70.01XA Contusion of right hip, initial encounter; M54.5 Low back pain; G89.29 Other chronic pain; I25.10 Atherosclerotic heart disease of native coronary artery without angina pectoris; Z88.0 Allergy status to penicillin; Z88.8 Allergy status to other drugs, medicaments and biological substances; Z88.1 Allergy status to other antibiotic agents; Z91.041 Radiographic dye allergy status; W18.39XA Other fall on same level, initial encounter; Y93.89 Activity, other specified; Y92.003 Bedroom of unspecified non-institutional (private) residence as the place of occurrence of the external cause; Y99.8 Other external cause status
CPT/HCPCS: 70450; 70486; 72125; 72131; 73502; 99284

== ENCOUNTER 2020-07-27 18:51 | Emergency (ER) | payer MEDICARE, OTHER ==
[~2020-07-27] VITALS: Ht 149.9 cm; Wt 69.0 kg
[~2020-07-27 18:51] MED LIST changes: +AMLO-186 PO; +AMLO-187 PO; -AMLO10TA8 PO; -AMLO5TAB10 PO; -FENO43CA PO; +FENO43CA5 PO; -LEVO75TA PO; +LEVO75TA90 PO; -OXYC-411 PO; +OXYC1TAB20 PO
--- NOTE | 2020-07-27 19:08 | PHYS DOC ---
Past Medical History Past Medical History: CAD, Seizure, Other Additional Past Medical Histor: Gastroparesis, CHRONIC PAIN, COMPRESSION FX Past Surgical History: Other Additional Past Surgical Histo: BACK SURGERY Smoking Status: Never Smoker Alcohol Use: None Drug Use: None General Adult EDM: Chief Complaint: MECHANICAL FALL HPI: HPI: 74F with PMH of HTN, HL, DM, CAD, gastroparesis, p/w thoracolumbar back pain and closed head injury status post mechanical fall down 3-4 steps. The patient was opening a gate to her home, when she lost her footing and fell. No LOC. She states that she "twisted" her lower back. She has a known history of low back compression fractures managed nonoperatively. No anticoagulants or antiplatelet use. No neck pain, chest pain, abdominal pain, or extremity pain. Review of Systems: Review of Systems: Gen: No fever, chills. Eyes: No blurred vision, diplopia. ENT: No facial pain, epistaxis. CV: No CP, syncope. Resp. No SOB, cough. GI: No abd pain, N/V. : No perineal pain, hematuria. Neuro: No dizziness, weakness. Reports head pain. MSK: Reports myalgia, arthralgia, back pain. Skin: No acute rash or lesion. Heart Score: Risk Factors: Risk Factors: DM, Current or recent (<one month) smoker, HTN, HLP, family history of CAD, obesity. Risk Scores: Score 0 - 3: 2.5% MACE over next 6 weeks - Discharge Home Score 4 - 6: 20.3% MACE over next 6 weeks - Admit for Clinical Observation Score 7 - 10: 72.7% MACE over next 6 weeks - Early Invasive Strategies Allergies: Allergies: Allergies Coded Allergies Type Severity Reaction Last Updated Verified Iodinated Contrast Media Allergy Severe Anaphylaxis 05/27/18 Yes Penicillins Allergy Intermediate 05/27/18 Yes atenolol Allergy Intermediate TAKES METOPROLOL AT HOME 05/27/18 Yes erythromycin base Allergy Intermediate 05/27/18 Yes iodine Allergy Intermediate 05/27/18 Yes levofloxacin Allergy Intermediate 05/27/18 Yes pregabalin Allergy Intermediate 05/27/16 Yes Physical Exam: PE: Gen: NAD. Well nourished. Head: NC/AT. Eyes: No scleral icterus. No conjunctival injection. PERRL. ENT: MMM. Posterior OP clear. No epistaxis or septal hematoma. Neck: Supple. NT. CV: RRR. Peripheral pulses intact. Resp: CTAB. Chest: No anterior chest wall TTP. Symmetric chest rise. Abd: Soft. NT. ND. MSK: No peripheral cyanosis. No edema. Extremities atraumatic x4. Back: No midline spinal TTP or stepoffs. Nonfocal thoracolumbar paraspinal hypertonicity without focal tenderness. Neuro: A&Ox3. Strength & sensation grossly intact throughout. GCS 15. Skin. Warm. Dry. Psych: Appropriate mood & affect. EKG: EKG: [] Radiology/Procedures: Radiology/Procedures: CT HEAD AND C-SPINE WO Date: 07/27/2020 7:22 PM Clinical Indication: Fall, closed head injury, pain Comparison: 06/08/2019. Technique: 5 mm axial tomographic images were obtained of the head without contrast. These were viewed on brain and bone windows. Noncontrast CT of the cervical spine was performed. Sagittal and coronal reformats were performed and evaluated. One or more of the following dose reduction techniques were utilized: Automated exposure control (AEC), Adjustment of mA and/or kV according to patient size, Use of iterative reconstruction technique such as ASiR, CT scan done according to ALARA and image gently/image wisely HEAD FINDINGS: Mild generalized cerebral and cerebellar volume loss. Moderate nonspecific periventricular hypoattenuation, most commonly seen with chronic small vessel ischemic disease. No intra- or extra-axial mass or fluid collection. No acute hemorrhage. The ventricles are normal in size, shape, and morphology. The cano-white matter junction is normal. The basilar cisterns are patent. The visualized paranasal sinuses are normal. The visualized portions of the orbits and globes are normal. The mastoid air cells are clear. No aggressive osseous lesion or fracture. CERVICAL SPINE FINDINGS: The cervical spine is normally aligned. No acute fracture. No aggressive lytic or blastic osseous lesions. Moderate multilevel degenerative disc space height loss. Multilevel mild spinal canal stenosis secondary to disc protrusions and marginal osteophytes. Multilevel mild and moderate neuroforaminal narrowing secondary to uncovertebral arthrosis. Multilevel moderate to severe facet arthrosis. The thyroid gland is atrophic or surgically absent. No cervical lymphadenopathy. Bilateral carotid atherosclerosis. The visualized aerodigestive tract is normal. The visualized portions of the lungs are clear. IMPRESSION: 1. No acute intracranial process. 2. No acute cervical spine fracture. CT THORACIC SPINE WO, CT LUMBAR SPINE WO Date: 07/27/2020 7:22 PM Indication: Fall, thoracolumbar back pain Comparison: CT lumbar spine 06/08/2019. CT thoracic spine 10/14/2018 Technique: Helical CT images of the thoracic and lumbar spine were obtained without contrast. Coronal and sagittal reformatted images were also performed. One or more of the following dose reduction techniques were utilized: Automated exposure control (AEC), Adjustment of mA and/or kV according to patient size, Use of iterative reconstruction technique such as ASiR, CT scan done according to ALARA and image gently/image wisely. Findings: No acute compression thoracic or lumbar deformity. Multilevel chronic compression deformities, with changes of vertebral augmentation at T6, L1, and L2. The thoracic and lumbar spine are normally aligned. No acute fracture. Vertebral body heights are maintained without compression deformity. No aggressive lytic or blastic osseous lesion. Moderate multilevel degenerative disc space height loss. Multilevel mild and moderate spinal canal stenosis secondary to multilevel disc bulging and facet arthrosis. Multilevel mild and moderate neuroforaminal narrowing. Multilevel mild and moderate facet arthrosis. Coronary artery atherosclerotic disease. The visualized abdominal aorta is normal caliber. Spinal stimulator device. IMPRESSION: No acute thoracic or lumbar compression deformity. Multiple chronic compression deformities, with postsurgical changes of vertebral augmentation at T6, L1, and L2. Electronically signed by: Juan José Farrell MD (07/27/2020 8:04 PM) [facility] Course & Med Decision Making: Course & Med Decision Making Pertinent Labs and Imaging studies reviewed. (See chart for details) In summary, 74-year-old female who presents for evaluation of thoracolumbar back pain status post mechanical fall. Neurovascular intact. No gross outward signs of injury. No midline tenderness of the spinal examination. CT head and whole spine are negative for acute traumatic pathology. Redemonstration of known old compression fractures. Remains well-appearing and nontoxic. We discharged home with outpatient follow-up. Return precautions given. Yordanon Disclaimer: Jimmy Disclaimer: This electronic medical record was generated, in whole or in part, using a voice recognition dictation system. Departure Departure Impression: Primary Impression: Lumbar strain Additional Impression: Fall Condition: STABLE Referrals: SATHYA PACHECO DO (PCP) Patient Instructions: Low Back Sprain with Rehab-SportsMed Scripts Lidocaine (Lidocaine PATCH ) 1 Each Adh..patch 1 EACH TP DAILY for FOR LOCAL PAIN, #10 PATCH REMOVE AFTER 12 HOURS Prov: JARED PASTOR H DO 07/27/20 Hydrocodone/Apap 5-325 (NORCO 5-325 TABLET) 1 Each Tablet 1 TAB PO PRN Q6HRS PRN for PAIN, #15 TAB 0 Refills Prov: DARBYJARED H DO 07/27/20 JARED PASTOR DO Jul 27, 2020 19:08
--- NOTE | 2020-07-27 20:01 | RAD ---
CT HEAD AND C-SPINE WO Date: 07/27/2020 7:22 PM Clinical Indication: Fall, closed head injury, pain Comparison: 06/08/2019. Technique: 5 mm axial tomographic images were obtained of the head without contrast. These were view ed on brain and bone windows. Noncontrast CT of the cervical spine was performed. Sagittal and mccoy l reformats were performed and evaluated. One or more of the following dose reduction techniques were utilized: Automated exposure control (AEC), Adjustment of mA and/or kV according to patient size, Us e of iterative reconstruction technique such as ASiR, CT scan done according to ALARA and image gentl y/image wisely HEAD FINDINGS: Mild generalized cerebral and cerebellar volume loss. Moderate nonspecific periventricular hypoattenu ation, most commonly seen with chronic small vessel ischemic disease. No intra- or extra-axial mass or fluid collection. No acute hemorrhage. The ventricles are normal in size, shape, and morphology. The cano-white matter junction is normal. The basilar cisterns are paten t. The visualized paranasal sinuses are normal. The visualized portions of the orbits and globes are no rmal. The mastoid air cells are clear. No aggressive osseous lesion or fracture. CERVICAL SPINE FINDINGS: The cervical spine is normally aligned. No acute fracture. No aggressive lytic or blastic osseous les ions. Moderate multilevel degenerative disc space height loss. Multilevel mild spinal canal stenosis second jacky to disc protrusions and marginal osteophytes. Multilevel mild and moderate neuroforaminal narrowi ng secondary to uncovertebral arthrosis. Multilevel moderate to severe facet arthrosis. The thyroid gland is atrophic or surgically absent. No cervical lymphadenopathy. Bilateral carotid at herosclerosis. The visualized aerodigestive tract is normal. The visualized portions of the lungs are clear. IMPRESSION: 1. No acute intracranial process. 2. No acute cervical spine fracture. Electronically signed by: Juan José Farrell MD (07/27/2020 7:58 PM) [facility]
--- NOTE | 2020-07-27 20:06 | RAD ---
CT THORACIC SPINE WO, CT LUMBAR SPINE WO Date: 07/27/2020 7:22 PM Indication: Fall, thoracolumbar back pain Comparison: CT lumbar spine 06/08/2019. CT thoracic spine 10/14/2018 Technique: Helical CT images of the thoracic and lumbar spine were obtained without contrast. Dc l and sagittal reformatted images were also performed. One or more of the following dose reduction te chniques were utilized: Automated exposure control (AEC), Adjustment of mA and/or kV according to pat ient size, Use of iterative reconstruction technique such as ASiR, CT scan done according to ALARA an d image gently/image wisely. Findings: No acute compression thoracic or lumbar deformity. Multilevel chronic compression deformities, with changes of vertebral augmentation at T6, L1, and L2. The thoracic and lumbar spine are normally aligned. No acute fracture. Vertebral body heights are rigoberto ntained without compression deformity. No aggressive lytic or blastic osseous lesion. Moderate multilevel degenerative disc space height loss. Multilevel mild and moderate spinal canal st enosis secondary to multilevel disc bulging and facet arthrosis. Multilevel mild and moderate neurofo raminal narrowing. Multilevel mild and moderate facet arthrosis. Coronary artery atherosclerotic disease. The visualized abdominal aorta is normal caliber. Spinal sti mulator device. IMPRESSION: No acute thoracic or lumbar compression deformity. Multiple chronic compression deformities, with postsurgical changes of vertebral augmentation at T6, L1, and L2. Electronically signed by: Juan José Farrell MD (07/27/2020 8:04 PM) [facility]
[2020-07-27] MEDS ORDERED: LIDOCAINE (700MG/PATCH) PATCH. TD SCH (20:15)
[2020-07-27] MEDS ORDERED: MORPHINE SULFATE 4 MG/ML VIAL. IM ONE (20:15)
[2020-07-27 20:56] VITALS: BP 177/79
[2020-07-27] MEDS ORDERED: HYDR-3164 PO (21:45)
[2020-07-27] MEDS ORDERED: LIDO700A21 TP (21:45)
== END 2020-07-27 21:40 | disposition home or self-care (01) ==
LOC: ER 18:51
DX: S39.012A Strain of muscle, fascia and tendon of lower back, initial encounter (principal); S09.90XA Unspecified injury of head, initial encounter; M54.6 Pain in thoracic spine; R51.9 Headache, unspecified; I25.10 Atherosclerotic heart disease of native coronary artery without angina pectoris; G89.29 Other chronic pain; Z98.890 Other specified postprocedural states; E11.43 Type 2 diabetes mellitus with diabetic autonomic (poly)neuropathy; K31.84 Gastroparesis; E78.00 Pure hypercholesterolemia, unspecified; I10 Essential (primary) hypertension; W10.8XXA Fall (on) (from) other stairs and steps, initial encounter; Y93.89 Activity, other specified; Y92.89 Other specified places as the place of occurrence of the external cause; Y99.8 Other external cause status
CPT/HCPCS: 70450; 72125; 72128; 72131; 96372; 99285; J2270

== ENCOUNTER 2020-07-30 10:36 | Emergency (ER) | payer MEDICARE, OTHER ==
[~2020-07-30] VITALS: Ht 147.3 cm; Wt 70.0 kg
--- NOTE | 2020-07-30 11:40 | PHYS DOC ---
Past Medical History Past Medical History: CAD, Seizure, Other Additional Past Medical Histor: Gastroparesis, CHRONIC PAIN, COMPRESSION FX Past Surgical History: Other Additional Past Surgical Histo: BACK SURGERY, "[place] IN RIGHT KNEE" Smoking Status: Never Smoker Alcohol Use: None Drug Use: None General Adult EDM: Chief Complaint: ABDOMINAL PAIN HPI: HPI: Patient is a 74 year old female who arrives with a chief complaint of left rib and left upper quadrant pain. Patient had a mechanical fall a few days ago where she fell on cement steps. Patient was seen here and had imaging of her head neck and spine but no imaging of her torso. Patient describes moderate to severe left-sided rib and left upper quadrant pain is worse with palpation. Patient has some mild shortness of breath but no fevers, chills, cough. Pain is worse with deep breaths as well. Pain is described as a sharp stabbing pain Review of Systems: Review of Systems: Constitutional: Denies fever or chills. [] Eyes: Denies change in visual acuity. [] HENT: Denies nasal congestion or sore throat. [] Respiratory: Denies cough but has had some mild shortness of breath Cardiovascular: Complains of left rib pain but no edema GI: Complains of left upper quadrant pain but no nausea, vomiting, bloody stools or diarrhea. [] : Denies dysuria. [] Musculoskeletal: Complains of back pain from the fall but no specific joint pain Integument: Denies rash. [] Neurologic: Denies headache, focal weakness or sensory changes. [] Endocrine: Denies polyuria or polydipsia. [] Lymphatic: Denies swollen glands. [] Psychiatric: Denies depression or anxiety. [] Heart Score: Risk Factors: Risk Factors: DM, Current or recent (<one month) smoker, HTN, HLP, family history of CAD, obesity. Risk Scores: Score 0 - 3: 2.5% MACE over next 6 weeks - Discharge Home Score 4 - 6: 20.3% MACE over next 6 weeks - Admit for Clinical Observation Score 7 - 10: 72.7% MACE over next 6 weeks - Early Invasive Strategies Current Medications: Current Medications Morphine Sulfate (Morphine Sulfate) 4 mg 1X ONCE IV Last administered on 07/30/20at 11:48; Start 07/30/20 at 11:45; Stop 07/30/20 at 11:46; Status DC Ondansetron HCl (Zofran) 4 mg 1X ONCE IVP Last administered on 07/30/20at 11:48; Start 07/30/20 at 11:45; Stop 07/30/20 at 11:46; Status DC Active Scripts Active Lidocaine PATCH (Lidocaine) 1 Each Adh..patch 1 Each TP DAILY REMOVE AFTER 12 HOURS [place] 5-325 Tablet (Acetaminophen/Hydrocodone Bitart) 1 Each Tablet 1 Tab PO PRN Q6HRS PRN Lidocaine PATCH (Lidocaine) 1 Each Adh..patch 1 Each TP DAILY REMOVE AFTER 12 HOURS Orphenadrine Citrate 100 Mg Tablet.er 100 Mg PO BID PRN [Pantoprazole] 40 MG Tablet.dr 40 Mg PO DAILYAC Lantus Solostar (Insulin Glargine,Hum.rec.anlog) 100 Unit/1 Ml Insuln.pen 18 Units SQ QHS Humalog (Insulin Lispro) 100 Unit/1 Ml Insuln.pen 10 Units SQ TIDAC Cozaar (Losartan Potassium) 50 Mg Tablet 50 Mg PO DAILY Atorvastatin Calcium 40 Mg Tablet 40 Mg PO QHS Isosorbide Mononitrate Er (Isosorbide Mononitrate) 30 Mg Tab.er.24h 30 Mg PO DAILY Oxycodone Hcl Immed.release (Oxycodone Hcl) 10 Mg Tablet 10 Mg PO PRN Q6HRS PRN Thera-M Tablet (Multivits,Ca,Minerals/Iron/Fa) 1 Each Tablet 1 Tab PO DAILY 30 Days Synthroid (Levothyroxine Sodium) 75 Mcg Tablet 75 Mcg PO DAILY07 30 Days Metoprolol Succinate 50 Mg Tab.er.24h 50 Mg PO DAILY 30 Days Dicyclomine Hcl 10 Mg Capsule 10 Mg PO PRN Q6HRS PRN 30 Days Vitamin B-12 (Cyanocobalamin (Vitamin B-12)) 1,000 Mcg Tablet 1,000 Mcg PO DAILY 30 Days Metoclopramide Hcl 10 Mg/10 Ml Solution 10 Mg PO TIDACHC 30 Days Nitrostat (Nitroglycerin) 0.4 Mg Tab.subl 0.4 Mg SL PRN Q5MIN PRN 30 Days Keppra (Levetiracetam) 500 Mg Tablet 1,000 Mg PO BID 30 Days [Pioglitazone Hcl] 15 MG Tablet 45 Mg PO DAILY Lorazepam 1 Mg Tablet 1 Mg PO PRN TID PRN Ondansetron Odt (Ondansetron) 4 Mg Tab.rapdis 4 Mg PO TIDAC FENTANYL 25mcg/hr (Fentanyl) 1 Each Patch.td72 1 Patch TD Q3DAYS Reported Aspirin 81 Mg Tab.chew 1 Tab PO DAILY Ambien (Zolpidem Tartrate) 5 Mg Tablet 5 Mg PO HS Clopidogrel (Clopidogrel Bisulfate) 75 Mg Tablet 75 Mg PO DAILY Current Medications Medications (Trade) Dose Ordered Sig/Melanie Start Time Stop Time Status Last Admin Dose Admin Morphine Sulfate (Morphine Sulfate) 4 mg 1X ONCE 07/30/20 11:45 07/30/20 11:46 UNV Ondansetron HCl (Zofran) 4 mg 1X ONCE 07/30/20 11:45 07/30/20 11:46 UNV Allergies: Allergies: Allergies Coded Allergies Type Severity Reaction Last Updated Verified Iodinated Contrast Media Allergy Severe Anaphylaxis 05/27/18 Yes Penicillins Allergy Intermediate 05/27/18 Yes atenolol Allergy Intermediate TAKES METOPROLOL AT HOME 05/27/18 Yes erythromycin base Allergy Intermediate 05/27/18 Yes iodine Allergy Intermediate 05/27/18 Yes levofloxacin Allergy Intermediate 05/27/18 Yes pregabalin Allergy Intermediate 05/27/16 Yes Physical Exam: PE: Constitutional: Well developed, well nourished, no acute distress, non-toxic appearance. [] HENT: Normocephalic, small bruise to the right temporal area bilateral external ears normal, oropharynx moist, no oral exudates, nose normal. [] Eyes: PERRLA, EOMI, conjunctiva normal, no discharge. [] Neck: Normal range of motion, mild diffuse tenderness, supple, no stridor. [] Cardiovascular:Heart rate regular rhythm, peripheral pulse intact cap refill is brisk [] Lungs & Thorax: Diminished breath sounds bilaterally, tender to palpate left chest wall Abdomen: Soft with mild left upper quadrant tenderness without guarding or rebound no masses, no pulsatile masses. [] Skin: Warm, dry, no erythema, no rash. [] Back: Mild diffuse tenderness Extremities: No tenderness, no cyanosis, no clubbing, ROM intact, no edema. [] Neurologic: Alert and oriented X 3, normal motor function, normal sensory function, no focal deficits noted. [] Psychologic: Affect normal, judgement normal, mood normal. [] Current Patient Data: Labs: Laboratory Tests Test 07/30/20 10:50 07/30/20 11:45 Urine Collection Type Unknown Urine Color Yellow Urine Clarity Clear Urine pH 7.0 Urine Specific [place] 1.025 Urine Protein Negative mg/dL Urine Glucose (UA) >=1000 mg/dL Urine Ketones (Stick) Negative mg/dL Urine Blood Negative Urine Nitrite Negative Urine Bilirubin Negative Urine Urobilinogen Dipstick 0.2 mg/dL Urine Leukocyte Esterase Negative Urine RBC 0 /HPF Urine WBC 0 /HPF Urine Squamous Epithelial Cells Occ /LPF Urine Bacteria 0 /HPF White Blood Count 6.1 x10^3/uL Red Blood Count 4.36 x10^6/uL Hemoglobin 13.8 g/dL Hematocrit 40.1 % Mean Corpuscular Volume 92 fL Mean Corpuscular Hemoglobin 32 pg Mean Corpuscular Hemoglobin Concent 34 g/dL Red Cell Distribution Width 13.4 % Platelet Count 319 x10^3/uL Neutrophils (%) (Auto) 68 % Lymphocytes (%) (Auto) 23 % Monocytes (%) (Auto) 7 % Eosinophils (%) (Auto) 0 % Basophils (%) (Auto) 1 % Neutrophils # (Auto) 4.2 x10^3/uL Lymphocytes # (Auto) 1.4 x10^3/uL Monocytes # (Auto) 0.4 x10^3/uL Eosinophils # (Auto) 0.0 x10^3/uL Basophils # (Auto) 0.1 x10^3/uL Sodium Level 139 mmol/L Potassium Level 3.3 mmol/L Chloride Level 100 mmol/L Carbon Dioxide Level 24 mmol/L Anion Gap 15 Blood Urea Nitrogen 15 mg/dL Creatinine 0.8 mg/dL Estimated GFR (Cockcroft-Gault) 70.1 BUN/Creatinine Ratio 19 Glucose Level 375 mg/dL Calcium Level 9.6 mg/dL Total Bilirubin 0.3 mg/dL Aspartate Amino Transf (AST/SGOT) 18 U/L Alanine Aminotransferase (ALT/SGPT) 28 U/L Alkaline Phosphatase 114 U/L Total Protein 7.0 g/dL Albumin 3.8 g/dL Albumin/Globulin Ratio 1.2 Lipase 121 U/L Current Medications Medications (Trade) Dose Ordered Sig/Melanie Route PRN Reason Start Time Stop Time Status Last Admin Dose Admin Morphine Sulfate (Morphine Sulfate) 4 mg 1X ONCE IV 12/19/20 11:45 07/30/20 11:46 DC 07/30/20 11:48 Ondansetron HCl (Zofran) 4 mg 1X ONCE IVP 07/30/20 11:45 07/30/20 11:46 DC 07/30/20 11:48 Vital Signs: Vital Signs Date Time Temp Pulse Resp B/P (MAP) Pulse Ox O2 Delivery O2 Flow Rate FiO2 07/30/20 10:40 98.7 79 15 156/76 (102) 97 Room Air 98.7 EKG: EKG: [] Radiology/Procedures: Radiology/Procedures: [][facility] [address] [place], [place] [id number] IMAGING REPORT Signed PATIENT: ORLIN ROJAS ACCOUNT: [id number] : 1945 LOCATION: ER AGE: 74 SEX: F EXAM STATUS: REG ER ORD. PHYSICIAN: JOCY MARTINEZ MD REASON: FELL 3 DAYS AGO. LEFT RIB AND LUQ PAIN (HAS IV DYE ALLERGY) PROCEDURE: CT CHEST ABDOMEN PELVIS WO CT scan of the chest, abdomen and pelvis without contrast 07/30/2020 CLINICAL HISTORY: The patient fell 3 days ago with left-sided rib pain and left upper quadrant abdominal pain. TECHNIQUE: Unenhanced, contiguous, 5 mm axial sections were obtained through the chest, abdomen and pelvis. One or more of the following individualized dose reduction techniques were utilized for this study: 1. Automated exposure control. 2. Adjustment of the mA and/or kV according to patient size. 3. Use of iterative reconstruction technique. FINDINGS: Atherosclerotic calcification of the thoracic aorta and its branches is noted. The thoracic aorta is tortuous but tapers normally. The patient is post CABG procedure. Extensive coronary artery calcifications are noted. The heart is mildly enlarged. No mediastinal hematoma is seen. Minimal dependent subsegmental atelectasis seen involving both lungs. No area of consolidation is seen. No pneumothorax or pleural effusion is noted. The liver is borderline enlarged measuring 19.1 cm in length. Decreased attenuation liver parenchyma seen consistent with fatty attenuation. No acute abnormality of liver is seen. Spleen, pancreas, adrenal glands and kidneys are within normal limits. Atherosclerotic calcification abdominal aorta and its branches is noted. The abdominal aorta tapers normally. Surgical clips are seen within the gallbladder fossa consistent with a cholecystectomy. No free fluid or free air is seen within the abdomen. There is no evidence of bowel obstruction. Air and stool are seen throughout the colon. The appendix is well-visualized and is within normal limits. Scattered diverticula are seen involving the sigmoid colon. No inflammatory changes are seen adjacent fat. Images through the pelvis demonstrate the urinary bladder to be slightly contracted. Calcifications are seen within the pelvis consistent with phleboliths. Multiple diverticula are seen involving the sigmoid colon. No inflammatory changes are seen adjacent fat. No free fluid is seen. No pelvic hematoma is noted. A right neural stimulator is noted in place. Mild S-shaped c urvature of the thoracolumbar spine is seen. Degenerative changes are seen involving the thoracic and throughout the lumbar spine along with both hips. Patient is post kyphoplasty type procedure involving the T6, L1 and L2 vertebral bodies. No acute fracture is seen. IMPRESSION: No acute abnormality is seen. Electronically signed by: Chuck Shah MD (07/30/2020 12:28 PM) [id number] DICTATED and SIGNED BY: CHUCK SHAH MD DATE: 07/30/20 [id number] 0 Course & Med Decision Making: Course & Med Decision Making Pertinent Labs and Imaging studies reviewed. (See chart for details) [] 74-year-old female presents with mechanical fall and left-sided rib pain. Patient also has left upper quadrant pain. Patient unfortunately is a IV dye allergy therefore she cannot undergo a CT with IV contrast. Patient does not fuentes ve any injury on noncontrasted CT. Injury was several days ago which I would expect to see a hematoma if there was an injury to the spleen or kidney. Patient reassessed at 1 PM and clinically improved. Patient will be sent home with more pain medicines and follow-up with her doctor on Saturday. Dragon Disclaimer: Dragclarissa Disclaimer: This electronic medical record was generated, in whole or in part, using a voice recognition dictation system. Departure Departure Impression: Primary Impression: Blunt abdominal trauma Additional Impression: Blunt chest trauma Disposition: 01 DC HOME SELF CARE/HOMELESS Condition: STABLE Referrals: NO PCP (PCP) DENICE BEJARANO MD 2-3 days Patient Instructions: Blunt Abdominal Trauma, Blunt Chest Trauma Additional Instructions: nroEMERGENCY DEPARTMENT GENERAL DISCHARGE INSTRUCTIONS THANK YOU for coming to [facility] Emergency Department (ED) today and trusting us with your care. We trust that you had a positive experience in our Emergency Department. If you wish to speak to the department Management you can contact the police department secretary at . YOUR FOLLOW UP INSTRUCTIONS ARE FOLLOWS: Do you have a private doctor? If you do not have a private doctor, please ask for a resource list of physicians or clinics that may be able to assist you with follow up care. The Emergency Physician has interpreted your x-rays. The X-ray specialist will also review them. If there is a change in the findings you will be notified in 48 hours when at all possible. A lab test or lab culture may have been done, your results will be reviewed and you will be notified if you need a change in treatment. ADDITIONAL INSTRUCTIONS AND INFORMATION Your care today has been supervised by a physician who is specially trained in emergency care. Many problems require more than one evaluation for a complete diagnosis and treatment. We recommend that you schedule your follow up appointment as recommended to ensure complete treatment of your illness or injury. If you are unable to obtain follow up care and continue to have a problem, or if your condition worsens we recommend that you return to the ED. We are not able to safely determine your condition over the phone nor are we able to give sound medical advice over the phone. For these safety reasons, if you call for medical advice we will ask you to come to the ED for further evaluation If you have any questions regarding these discharge instructions please call the ED at . SAFETY INFORMATION In the interest of safety, wellness, and injury prevention; we encourage you to wear your seatbelt, if you smoke; quit smoking, and we encourage your family to use protective helmet for bicycling and other sporting events that present an increased risk for head injury. IF YOUR SYMPTOMS WORSEN OR NEW SYMPTOMS DEVELOP, OR YOU HAVE CONCERNS ABOUT YOUR CONDITION; OR IF YOUR CONDITION WORSENS WHILE YOU ARE WAITING FOR YOUR FOLLOW UP APPOINTMENT; EITHER CONTACT YOUR PRIMARY CARE DOCTOR, THE PHYSICIAN WHOSE NAME AND NUMBER YOU WERE GIVEN, OR RETURN TO THE ED IMMEDIATELY. Scripts Hydrocodone/[place] 7.5-325 ([place] 7.5-325 TABLET) 1 Each Tablet 1 TAB PO PRN Q6HRS PRN for PAIN, #12 TAB 0 Refills Prov: JOCY MARTINEZ MD 07/30/20 JOCY MARTINEZ MD Jul 30, 2020 11:40
[2020-07-30] MEDS ORDERED: MORPHINE SULFATE 4 MG/ML VIAL. IV ONE (11:45)
[2020-07-30] MEDS ORDERED: ONDANSETRON PF 4 MG/2 ML VIAL. IVP ONE (11:45)
[2020-07-30 12:09] LABS: BASO # 0.1 x10^3/uL (0.0-0.2); BASO % 1 % (0-3); EOS % 0 % (0-3); HEMATOCRIT 40.1 % (36.0-47.0); HEMOGLOBIN 13.8 g/dL (12.0-15.5); LYMPH # 1.4 x10^3/uL (1.0-4.8); LYMPH % 23 % (24-48); MEAN CORPUSCULAR HEMOGLOBIN 32 pg (25-35); MEAN CORPUSCULAR HGB CONC 34 g/dL (31-37); MEAN CORPUSCULAR VOLUME 92 fL (79-100); MONO # 0.4 x10^3/uL (0.0-1.1); MONO % 7 % (0-9); NEUT # 4.2 x10^3/uL (1.8-7.7); NEUT % 68 % (31-73); PLATELET COUNT 319 x10^3/uL (140-400); RED BLOOD COUNT 4.36 x10^6/uL (3.50-5.40); RED CELL DISTRIBUTION WIDTH 13.4 % (11.5-14.5); WHITE BLOOD COUNT 6.1 x10^3/uL (4.0-11.0)
[2020-07-30 12:26] LABS: CALCIUM 9.6 mg/dL (8.5-10.1); CREATININE 0.8 mg/dL (0.6-1.0); GFR 70.1; POTASSIUM 3.3 mmol/L (3.5-5.1)
[2020-07-30 12:31] LABS: ALBUMIN 3.8 g/dL (3.4-5.0); ALBUMIN/GLOBULIN RATIO 1.2 (1.0-1.7); TOTAL BILIRUBIN 0.3 mg/dL (0.2-1.0)
--- NOTE | 2020-07-30 12:31 | RAD ---
CT scan of the chest, abdomen and pelvis without contrast 07/30/2020 CLINICAL HISTORY: The patient fell 3 days ago with left-sided rib pain and left upper quadrant abdomi nal pain. TECHNIQUE: Unenhanced, contiguous, 5 mm axial sections were obtained through the chest, abdomen and p ruma. One or more of the following individualized dose reduction techniques were utilized for this study: 1. Automated exposure control. 2. Adjustment of the mA and/or kV according to patient size. 3. Use of iterative reconstruction technique. FINDINGS: Atherosclerotic calcification of the thoracic aorta and its branches is noted. The thoracic aorta is tortuous but tapers normally. The patient is post CABG procedure. Extensive coronary artery calcifications are noted. The heart is mildly enlarged. No mediastinal hematoma is seen. Minimal dependent subsegmental atelectasis seen involving both lungs. No area of consolidation is see n. No pneumothorax or pleural effusion is noted. The liver is borderline enlarged measuring 19.1 cm in length. Decreased attenuation liver parenchyma seen consistent with fatty attenuation. No acute abnormality of liver is seen. Spleen, pancreas, adre nal glands and kidneys are within normal limits. Atherosclerotic calcification abdominal aorta and its branches is noted. The abdominal aorta tapers n ormally. Surgical clips are seen within the gallbladder fossa consistent with a cholecystectomy. No f ree fluid or free air is seen within the abdomen. There is no evidence of bowel obstruction. Air and stool are seen throughout the colon. The appendix is well-visualized and is within normal limits. Sca ttered diverticula are seen involving the sigmoid colon. No inflammatory changes are seen adjacent fa t. Images through the pelvis demonstrate the urinary bladder to be slightly contracted. Calcifications a re seen within the pelvis consistent with phleboliths. Multiple diverticula are seen involving the si gmoid colon. No inflammatory changes are seen adjacent fat. No free fluid is seen. No pelvic hematoma is noted. A right neural stimulator is noted in place. Mild S-shaped curvature of the thoracolumbar spine is seen. Degenerative changes are seen involving the thoracic and throughout the lumbar spine a long with both hips. Patient is post kyphoplasty type procedure involving the T6, L1 and L2 vertebral bodies. No acute fracture is seen. IMPRESSION: No acute abnormality is seen. Electronically signed by: Chuck Shah MD (07/30/2020 12:28 PM) [id number]
[2020-07-30 12:32] LABS: BILIRUBIN,URINE NEGATIVE (NEG); CLARITY,URINE CLEAR; COLOR,URINE YELLOW; NITRITE,URINE NEGATIVE (NEG); PROTEIN,URINE NEGATIVE (NEG-TRACE); UROBILINOGEN,URINE 0.2 mg/dL (0.2 mg/dL)
[2020-07-30 12:44] VITALS: BP 192/88
[2020-07-30 13:00] LABS: BACTERIA,URINE 0 /HPF (0-FEW); RBC,URINE 0 /HPF (0-2); WBC,URINE 0 /HPF (0-4)
[2020-07-30] MEDS ORDERED: HYDR-3165 PO (13:03)
== END 2020-07-30 13:10 | disposition home or self-care (01) ==
LOC: ER 10:36
DX: S00.83XA Contusion of other part of head, initial encounter (principal); S39.91XA Unspecified injury of abdomen, initial encounter; S29.9XXA Unspecified injury of thorax, initial encounter; R06.02 Shortness of breath; G89.29 Other chronic pain; I25.10 Atherosclerotic heart disease of native coronary artery without angina pectoris; Z88.0 Allergy status to penicillin; Z88.1 Allergy status to other antibiotic agents; Z88.8 Allergy status to other drugs, medicaments and biological substances; Z91.041 Radiographic dye allergy status; W10.8XXA Fall (on) (from) other stairs and steps, initial encounter; Y93.89 Activity, other specified; Y92.89 Other specified places as the place of occurrence of the external cause; Y99.8 Other external cause status
CPT/HCPCS: 36415; 71250; 74176; 80053; 81001; 83690; 85025; 96374; 96375; 99285; J2270; J2405; 99284-25

== ENCOUNTER 2020-07-31 09:22 | Inpatient (IN) | payer MEDICARE, OTHER ==
[~2020-07-31] VITALS: Ht 147.3 cm; Wt 69.5 kg
[~2020-07-31 09:22] MED LIST changes: +HYDR-3165 PO; +MORPHINE SULFATE 4 MG/ML VIAL. IV PRN
[2020-07-31] MEDS ORDERED: IV NORMAL SALINE 1000ML BAG 1,000 ML IV ONE (09:45)
[2020-07-31] MEDS ORDERED: ONDANSETRON PF 4 MG/2 ML VIAL. IVP ONE (09:45)
[2020-07-31] MEDS ORDERED: INSULIN REGULAR 100 UNIT/ML 3ML VIAL. IV ONE (09:45)
--- NOTE | 2020-07-31 10:06 | PHYS DOC ---
Past Medical History Past Medical History: CAD, Seizure, Other Additional Past Medical Histor: Gastroparesis, CHRONIC PAIN, COMPRESSION FX Past Surgical History: Other Additional Past Surgical Histo: BACK SURGERY, "[place] IN RIGHT KNEE" Smoking Status: Never Smoker Alcohol Use: None Drug Use: None General Adult EDM: Chief Complaint: BLOOD SUGAR PROBLEM HPI: HPI: Patient is a 74 year old female who arrives with a chief complaint of hyperglycemia. Patient was seen here yesterday following a fall earlier this week. Patient underwent CTs of her chest abdomen pelvis were were negative for acute pathology. Patient states her blood sugar has been high and reading in the 500s this morning. Patient had an episode of nausea vomiting. Patient's pain is unchanged from yesterday and moderate to severe in intensity and worse with palpation and deep breaths. Patient denies any fevers or cough. Review of Systems: Review of Systems: Constitutional: Denies fever or chills. [] Eyes: Denies change in visual acuity. [] HENT: Denies nasal congestion or sore throat. [] Respiratory: Denies cough but has mild shortness of breath. [] Cardiovascular: Complains of left-sided chest wall pain but no edema GI: Complains of left upper quadrant pain with nausea vomiting : Denies dysuria. [] Musculoskeletal: Complains of back pain from fall earlier this week Integument: Denies rash. [] Neurologic: Denies headache, focal weakness or sensory changes. [] Endocrine: Complains of hyperglycemia] Lymphatic: Denies swollen glands. [] Psychiatric: Denies depression or anxiety. [] Heart Score: Risk Factors: Risk Factors: DM, Current or recent (<one month) smoker, HTN, HLP, family history of CAD, obesity. Risk Scores: Score 0 - 3: 2.5% MACE over next 6 weeks - Discharge Home Score 4 - 6: 20.3% MACE over next 6 weeks - Admit for Clinical Observation Score 7 - 10: 72.7% MACE over next 6 weeks - Early Invasive Strategies Current Medications: Current Medications Medications (Trade) Dose Ordered Sig/Melanie Start Time Stop Time Status Last Admin Dose Admin Insulin Human Regular (HumuLIN R VIAL) 6 unit 1X ONCE 07/31/20 09:45 07/31/20 09:48 DC Ondansetron HCl (Zofran) 4 mg 1X ONCE 07/31/20 09:45 07/31/20 09:48 DC Sodium Chloride 1,000 ml @ 1,000 mls/hr 1X ONCE 07/31/20 09:45 07/31/20 10:44 Allergies: Allergies: Allergies Coded Allergies Type Severity Reaction Last Updated Verified Iodinated Contrast Media Allergy Severe Anaphylaxis 05/27/18 Yes Penicillins Allergy Intermediate 05/27/18 Yes atenolol Allergy Intermediate TAKES METOPROLOL AT HOME 05/27/18 Yes erythromycin base Allergy Intermediate 05/27/18 Yes iodine Allergy Intermediate 05/27/18 Yes levofloxacin Allergy Intermediate 05/27/18 Yes pregabalin Allergy Intermediate 05/27/16 Yes Physical Exam: PE: Constitutional: Well developed, well nourished, no acute distress, non-toxic appearance. [] HENT: Normocephalic, atraumatic, bilateral external ears normal, no trismus, nose normal. [] Eyes: PERRLA, EOMI, conjunctiva normal, no discharge. [] Neck: Normal range of motion, no tenderness, supple, no stridor. [] Cardiovascular:Heart rate regular rhythm, peripheral pulses are intact cap refills less than 2 seconds Lungs & Thorax: Bilateral breath sounds clear, no respiratory distress, tenderness to palpate left chest wall Abdomen: Soft with mild left upper quadrant tenderness without guarding or rebound no masses, no pulsatile masses. [] Skin: Warm, dry, no erythema, no rash. [] Back: Mild diffuse tenderness Extremities: No tenderness, no cyanosis, no clubbing, ROM intact, no edema. [] Neurologic: Alert and oriented X 3, normal motor function, normal sensory function, no focal deficits noted. [] Psychologic: Affect normal, judgement normal, mood normal. [] Current Patient Data: Labs: Laboratory Tests Test 07/31/20 09:28 07/31/20 09:30 07/31/20 10:47 Glucose (Fingerstick) 437 mg/dL Urine Collection Type Unknown Urine Color Yellow Urine Clarity Clear Urine pH 6.5 Urine Specific [place] 1.025 Urine Protein Negative mg/dL Urine Glucose (UA) >=1000 mg/dL Urine Ketones (Stick) Negative mg/dL Urine Blood Negative Urine Nitrite Negative Urine Bilirubin Negative Urine Urobilinogen Dipstick 0.2 mg/dL Urine Leukocyte Esterase Negative Urine RBC 0 /HPF Urine WBC Rare /HPF Urine Squamous Epithelial Cells Occ /LPF Urine Bacteria 0 /HPF White Blood Count 5.5 x10^3/uL Red Blood Count 4.38 x10^6/uL Hemoglobin 13.7 g/dL Hematocrit 40.7 % Mean Corpuscular Volume 93 fL Mean Corpuscular Hemoglobin 31 pg Mean Corpuscular Hemoglobin Concent 34 g/dL Red Cell Distribution Width 13.0 % Platelet Count 310 x10^3/uL Neutrophils (%) (Auto) 57 % Lymphocytes (%) (Auto) 31 % Monocytes (%) (Auto) 10 % Eosinophils (%) (Auto) 1 % Basophils (%) (Auto) 1 % Neutrophils # (Auto) 3.1 x10^3/uL Lymphocytes # (Auto) 1.7 x10^3/uL Monocytes # (Auto) 0.5 x10^3/uL Eosinophils # (Auto) 0.0 x10^3/uL Basophils # (Auto) 0.1 x10^3/uL Sodium Level 134 mmol/L Potassium Level 2.8 mmol/L Chloride Level 98 mmol/L Carbon Dioxide Level 23 mmol/L Anion Gap 13 Blood Urea Nitrogen 11 mg/dL Creatinine 1.1 mg/dL Estimated GFR (Cockcroft-Gault) 48.6 BUN/Creatinine Ratio 10 Glucose Level 379 mg/dL Calcium Level 8.8 mg/dL Magnesium Level 2.0 mg/dL Total Bilirubin 0.4 mg/dL Aspartate Amino Transf (AST/SGOT) 22 U/L Alanine Aminotransferase (ALT/SGPT) 25 U/L Alkaline Phosphatase 97 U/L Total Protein 7.5 g/dL Albumin 3.8 g/dL Albumin/Globulin Ratio 1.0 Lipase 201 U/L Current Medications Medications (Trade) Dose Ordered Sig/Melanie Route PRN Reason Start Time Stop Time Status Last Admin Dose Admin Ondansetron HCl (Zofran) 4 mg 1X ONCE IVP 07/31/20 09:45 07/31/20 09:48 DC 07/31/20 11:06 Sodium Chloride 1,000 ml @ 1,000 mls/hr 1X ONCE IV 07/31/20 09:45 07/31/20 10:44 DC 07/31/20 11:06 Insulin Human Regular (HumuLIN R VIAL) 6 unit 1X ONCE IV 07/31/20 09:45 07/31/20 09:48 DC 07/31/20 11:05 Potassium Chloride/Water 10 ml @ 10 mls/hr Q1H IV 07/31/20 11:30 07/31/20 15:29 Potassium Chloride (Klor-Con) 40 meq 1X ONCE PO 07/31/20 11:15 07/31/20 11:17 DC Ondansetron HCl (Zofran) 4 mg PRN Q8HRS PRN IV NAUSEA/VOMITING 07/31/20 11:30 08/01/20 11:29 Morphine Sulfate (Morphine Sulfate) 4 mg PRN Q4HRS PRN IV PAIN 07/31/20 11:30 08/01/20 11:29 Sodium Chloride 1,000 ml @ 125 mls/hr Q8H IV 07/31/20 11:30 08/01/20 11:29 Laboratory Tests Test 07/31/20 09:28 Glucose (Fingerstick) 437 mg/dL (70-99) H Vital Signs: Vital Signs Date Time Temp Pulse Resp B/P (MAP) Pulse Ox O2 Delivery O2 Flow Rate FiO2 07/31/20 09:43 66 20 185/100 (128) 98 Room Air 07/31/20 09:22 97.7 70 20 236/107 (150) 98 Room Air 97.7 EKG: EKG: EKG interpreted by sc normal sinus rhythm rate 68 left axis deviation, precordial T wave inversions normal intervals [] Radiology/Procedures: Radiology/Procedures: [] Course & Med Decision Making: Course & Med Decision Making Pertinent Labs and Imaging studies reviewed. (See chart for details) [] 74-year-old female arrives via EMS with chief complaint of hyperglycemia. Patient also has hypokalemia. Patient's been here 3 times this week for falls and now hyperglycemia. Patient will give IV fluids and insulin as well as potassium replacement patient be admitted to Dr. Farr for further evaluation and treatment. Patient also has accelerated hypertension will be treated with a dose of hydralazine. Dragon Disclaimer: Dragon Disclaimer: This electronic medical record was generated, in whole or in part, using a voice recognition dictation system. Departure Departure Impression: Primary Impression: Hyperglycemia Additional Impressions: Hypokalemia Accelerated hypertension Disposition: ADMITTED INPT THIS HOSP Admitting Physician: TRISH (KAY) Condition: STABLE Referrals: DENICE BEJARANO MD (PCP) JOCY MARTINEZ MD Jul 31, 2020 10:06
[2020-07-31 10:08] LABS: BILIRUBIN,URINE NEGATIVE (NEG); CLARITY,URINE CLEAR; COLOR,URINE YELLOW; NITRITE,URINE NEGATIVE (NEG); PH,URINE 6.5 (<5.0-8.0); PROTEIN,URINE NEGATIVE (NEG-TRACE); UROBILINOGEN,URINE 0.2 mg/dL (0.2 mg/dL)
[2020-07-31 10:28] LABS: BACTERIA,URINE 0 /HPF (0-FEW); RBC,URINE 0 /HPF (0-2); WBC,URINE RARE /HPF (0-4)
[2020-07-31 10:58] LABS: BASO # 0.1 x10^3/uL (0.0-0.2); BASO % 1 % (0-3); EOS % 1 % (0-3); HEMATOCRIT 40.7 % (36.0-47.0); HEMOGLOBIN 13.7 g/dL (12.0-15.5); LYMPH # 1.7 x10^3/uL (1.0-4.8); LYMPH % 31 % (24-48); MEAN CORPUSCULAR HEMOGLOBIN 31 pg (25-35); MEAN CORPUSCULAR HGB CONC 34 g/dL (31-37); MEAN CORPUSCULAR VOLUME 93 fL (79-100); MONO # 0.5 x10^3/uL (0.0-1.1); MONO % 10 % (0-9); NEUT # 3.1 x10^3/uL (1.8-7.7); NEUT % 57 % (31-73); PLATELET COUNT 310 x10^3/uL (140-400); RED BLOOD COUNT 4.38 x10^6/uL (3.50-5.40); WHITE BLOOD COUNT 5.5 x10^3/uL (4.0-11.0)
[2020-07-31 11:05] LABS: ALBUMIN 3.8 g/dL (3.4-5.0); CALCIUM 8.8 mg/dL (8.5-10.1); CREATININE 1.1 mg/dL (0.6-1.0); GFR 48.6; TOTAL BILIRUBIN 0.4 mg/dL (0.2-1.0); TOTAL PROTEIN 7.5 g/dL (6.4-8.2)
--- NOTE | 2020-07-31 11:05 | EKG ---
[facility] [address] [place] [address] Test Date: 2020-07-31 Test Time: 10:21:05 Pat Name: ORLIN ROJAS Department: Room: Gender: F Rn Recruitment: : 1945 Requested By: JOYC MARTINEZ Order Number: [id number] Reading MD: Measurements Intervals [place] Rate: 68 P: 15 FL: 164 QRS: -25 QRSD: 102 T: 9 QT: 412 QTc: 443 Interpretive Statements SINUS RHYTHM LEFTWARD AXIS QRS(T) CONTOUR ABNORMALITY CONSISTENT WITH SEPTAL INFARCT AGE UNDETERMINED T ABNORMALITY IN ANTERIOR LEADS ABNORMAL ECG RI6.01 No previous ECG available for comparison
[2020-07-31 11:08] LABS: POTASSIUM 2.8 mmol/L (3.5-5.1)
[2020-07-31] MEDS ORDERED: POTASSIUM CHLORIDE 20 MEQ TABLET.ER. PO ONE ×3 (11:15→15:00)
[2020-07-31] MEDS: POTASSIUM CHLORIDE 10 MEQ IV SCH ×2 (11:30→12:30)
[2020-07-31] MEDS ORDERED: ONDANSETRON PF 4 MG/2 ML VIAL. IV PRN (11:30)
[2020-07-31] MEDS: MORPHINE SULFATE 4 MG/ML VIAL. IV PRN ×4 (11:34→21:00)
[2020-07-31] MEDS ORDERED: hydrALAZINE 20 MG/ML VIAL. IVP ONE (11:45)
[2020-07-31 11:55] VITALS: BP 146/70
[2020-07-31] MEDS ORDERED: DEXTROSE 50% 25 GM / 50ML DISP.SYRIN. IV PRN ×2 (13:15→13:45)
[2020-07-31] MEDS: HYDROcodone/APAP 5/325MG 1 TAB TABLET PO PRN (13:29)
[2020-07-31] MEDS: IV NORMAL SALINE 1000ML BAG 1,000 ML IV SCH (13:30)
[2020-07-31] MEDS ORDERED: DICYCLOMINE HCL 10 MG CAPSULE PO PRN (13:30)
[2020-07-31] MEDS ORDERED: LABETALOL 20 MG/4 ML DISP.SYRIN. IVP PRN (13:30)
[2020-07-31] MEDS ORDERED: NITROGLYCERIN SUBLINGUAL 0.4 MG BOTTLE OF 25. SL PRN (13:30)
--- NOTE | 2020-07-31 13:39 | PDOC1 ---
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 She states that she measured her sugars last night because she was having some nausea and her sugar levels right at 500s. She did call her daughter who is a stock handler at [employer] and her daughter told her to come to be evaluated the emergency department. Patient was also here yesterday after dealing with a fall and she was gamez scanned which showed negative acute fractures. She does complain of some throbbing in her neck and pain in her chest area. Patient states that she has been a longtime diabetic and has never seem to get her sugars controlled to less than 300s. She is recently trying to establish care with Dr. Black and follows with an disposition clerk at [facility]. Patient continues to complain of pain in her chest region which only increases with intensity with palpation and deep breaths. Denies fevers, abdominal pain, diarrhea, syncope, palpitations or dizziness. Of note, patient does have 2 caretakers to help her manage her home situation which includes her medications and insulin regimen. Past Medical/Surgical History: PMH/PSH: Past Medical History: CAD, Seizure, Other Additional Past Medical Histor: Gastroparesis, CHRONIC PAIN, COMPRESSION FX Past Surgical History: Other Additional Past Surgical Histo: BACK SURGERY, "[place] IN RIGHT KNEE" Smoking Status: Never Smoker Alcohol Use: None Drug Use: None Allergies: Allergies: Coded Allergies: Iodinated Contrast Media (Verified Allergy, Severe, Anaphylaxis, 05/27/18) Penicillins (Verified Allergy, Intermediate, 05/27/18) atenolol (Verified Allergy, Intermediate, TAKES METOPROLOL AT HOME, 05/27/18) erythromycin base (Verified Allergy, Intermediate, 05/27/18) iodine (Verified Allergy, Intermediate, 05/27/18) levofloxacin (Verified Allergy, Intermediate, 05/27/18) pregabalin (Verified Allergy, Intermediate, 05/27/16) Family History: Family History: Reviewed with no relevant findings Social History: Social History: Smoking Status: Never Smoker Alcohol Use: None Drug Use: None Current Medications: Current Medications Current Medications Ondansetron HCl (Zofran) 4 mg 1X ONCE IVP Last administered on 07/31/20at 11:06; Start 07/31/20 at 09:45; Stop 07/31/20 at 09:48; Status DC Sodium Chloride 1,000 ml @ 1,000 mls/hr 1X ONCE IV Last administered on 07/31/20at 11:06; Start 07/31/20 at 09:45; Stop 07/31/20 at 10:44; Status DC Insulin Human Regular (HumuLIN R VIAL) 6 unit 1X ONCE IV Last administered on 07/31/20at 11:05; Start 07/31/20 at 09:45; Stop 07/31/20 at 09:48; Status DC Potassium Chloride/Water 10 ml @ 10 mls/hr Q1H IV ; Start 07/31/20 at 11:30; Stop 07/31/20 at 13:13; Status DC Potassium Chloride (Klor-Con) 40 meq 1X ONCE PO Last administered on 07/31/20at 11:41; Start 07/31/20 at 11:15; Stop 07/31/20 at 11:17; Status DC Ondansetron HCl (Zofran) 4 mg PRN Q8HRS PRN IV NAUSEA/VOMITING; Start 07/31/20 at 11:30; Stop 08/01/20 at 11:29 Morphine Sulfate (Morphine Sulfate) 4 mg PRN Q4HRS PRN IV PAIN Last administer ed on 07/31/20at 11:34; Start 07/31/20 at 11:30; Stop 08/01/20 at 11:29 Sodium Chloride 1,000 ml @ 125 mls/hr Q8H IV ; Start 07/31/20 at 11:30; Stop 08/01/20 at 11:29 Hydralazine HCl (Apresoline Inj) 10 mg 1X ONCE IVP ; Start 07/31/20 at 11:45; Stop 07/31/20 at 11:46; Status DC Acetaminophen/ Hydrocodone Bitart (Lortab 5/325) 1 tab PRN Q6HRS PRN PO PAIN; Start 07/31/20 at 13:00 Potassium Chloride (Klor-Con) 40 meq 1X ONCE PO ; Start 07/31/20 at 14:00; Stop 07/31/20 at 14:01 Potassium Chloride (Klor-Con) 40 meq 1X ONCE PO ; Start 07/31/20 at 15:00; Stop 07/31/20 at 15:01 Insulin Human Lispro (HumaLOG) 0-9 UNITS TIDWMEALS SQ ; Start 07/31/20 at 17:00 Dextrose (Dextrose 50%-Water Syringe) 12.5 gm PRN Q15MIN PRN IV SEE COMMENTS; Start 07/31/20 at 13:15 Insulin Human Lispro (HumaLOG) 20 units TIDWMEALS SQ ; Start 07/31/20 at 17:00 Insulin Glargine (Lantus Syringe) 30 unit BID SQ ; Start 07/31/20 at 21:00 Aspirin (Aspirin Chewable) 81 mg DAILY PO ; Start 08/01/20 at 09:00; Status UNV Atorvastatin Calcium (Lipitor) 40 mg QHS PO ; Start 07/31/20 at 21:00; Status UNV Clopidogrel Bisulfate (Plavix) 75 mg DAILY PO ; Start 08/01/20 at 09:00; Status UNV Cyanocobalamin (Vitamin B-12) 1,000 mcg DAILY PO ; Start 08/01/20 at 09:00; Status UNV Dicyclomine HCl (Bentyl) 10 mg PRN Q6HRS PRN PO abdominal cramps; Start 07/31/20 at 13:30; Status UNV Isosorbide Mononitrate (Imdur) 30 mg DAILY PO ; Start 08/01/20 at 09:00; Status UNV Levetiracetam (Keppra) 1,000 mg BID PO ; Start 07/31/20 at 21:00; Status UNV Levothyroxine Sodium (Synthroid) 75 mcg DAILY07 PO ; Start 08/01/20 at 07:00; Status UNV Lorazepam (Ativan) 1 mg PRN TID PRN PO ANXIETY / AGITATION; Start 07/31/20 at 13:30; Status UNV Losartan Potassium (Cozaar) 50 mg DAILY PO ; Start 08/01/20 at 09:00; Status UNV Metoclopramide HCl (Reglan Oral Solution) 10 mg TIDACHC PO ; Start 07/31/20 at 16:30; Status UNV Multivitamins (Thera M Plus) 1 tab DAILY PO ; Start 08/01/20 at 09:00; Status UNV Nitroglycerin (Nitrostat) 0.4 mg PRN Q5MIN PRN SL CHEST PAIN; Start 07/31/20 at 13:30; Status UNV Zolpidem Tartrate (Ambien) 5 mg HS PO ; Start 07/31/20 at 21:00; Status UNV Non-Formulary Medication ([Pantoprazole] ) 40 mg DAILYAC PO ; Start 08/01/20 at 07:30; Status UNV Amlodipine Besylate (Norvasc) 5 mg DAILY PO ; Start 07/31/20 at 13:30; Status UNV Carvedilol (Coreg) 6.25 mg BIDWMEALS PO ; Start 07/31/20 at 17:00; Status UNV Active Scripts Active [Pantoprazole] 40 MG Tablet.dr 40 Mg PO DAILYAC Cozaar (Losartan Potassium) 50 Mg Tablet 50 Mg PO DAILY Atorvastatin Calcium 40 Mg Tablet 40 Mg PO QHS Isosorbide Mononitrate Er (Isosorbide Mononitrate) 30 Mg Tab.er.24h 30 Mg PO DAILY Oxycodone Hcl Immed.release (Oxycodone Hcl) 10 Mg Tablet 10 Mg PO PRN Q6HRS PRN Thera-M Tablet (Multivits,Ca,Minerals/Iron/Fa) 1 Each Tablet 1 Tab PO DAILY 30 Days Synthroid (Levothyroxine Sodium) 75 Mcg Tablet 75 Mcg PO DAILY07 30 Days Metoprolol Succinate 50 Mg Tab.er.24h 50 Mg PO DAILY 30 Days Dicyclomine Hcl 10 Mg Capsule 10 Mg PO PRN Q6HRS PRN 30 Days Vitamin B-12 (Cyanocobalamin (Vitamin B-12)) 1,000 Mcg Tablet 1,000 Mcg PO DAILY 30 Days Metoclopramide Hcl 10 Mg/10 Ml Solution 10 Mg PO TIDACHC 30 Days Nitrostat (Nitroglycerin) 0.4 Mg Tab.subl 0.4 Mg SL PRN Q5MIN PRN 30 Days Keppra (Levetiracetam) 500 Mg Tablet 1,000 Mg PO BID 30 Days [Pioglitazone Hcl] 15 MG Tablet 45 Mg PO DAILY Lorazepam 1 Mg Tablet 1 Mg PO PRN TID PRN Ondansetron Odt (Ondansetron) 4 Mg Tab.rapdis 4 Mg PO TIDAC FENTANYL 25mcg/hr (Fentanyl) 1 Each Patch.td72 1 Patch TD Q3DAYS Reported Aspirin 81 Mg Tab.chew 1 Tab PO DAILY Ambien (Zolpidem Tartrate) 5 Mg Tablet 5 Mg PO HS Clopidogrel (Clopidogrel Bisulfate) 75 Mg Tablet 75 Mg PO DAILY ROS: Review of Systems Review of System REVIEW OF SYSTEMS: GENERAL: Denies weakness SKIN: No bruising, hair changes or rashes. EYES: No blurred, double or loss of vision. NOSE AND THROAT: No history of nosebleeds, hoarseness or sore throat. HEART: No history of palpitations, chest pain or shortness of breath on exertion. LUNGS: Denies cough, hemoptysis, wheezing or shortness of breath. GASTROINTESTINAL: Denies changes in appetite, nausea, vomiting, diarrhea or constipation. GENITOURINARY: No history of frequency, urgency, hesitancy or nocturia. NEUROLOGIC: Denies history of numbness, tingling, or tremor. PSYCHIATRIC: No history of panic, anxiety or depression. ENDOCRINE: No history of heat or cold intolerance, polyuria or polydipsia. EXTREMITIES: Denies joint pain, pain on walking or stiffness. Physical Exam: Vital Signs: Vital Signs Date Time Temp Pulse Resp B/P (MAP) Pulse Ox O2 Delivery O2 Flow Rate FiO2 07/31/20 12:22 Room Air 07/31/20 09:43 66 20 185/100 (128) 98 07/31/20 09:22 97.7 97.7 Physcial Exam: GEN: No apparent distress. Alert and oriented HEENT: Normal cephalic, atraumatic, external auditory canals are patent EYES: Extraocular muscles are intact, pupil are equally round and reactive to light and accommodation MUSCULOSKELETAL: Well developed , well nourished, good range of motion ENDOCRINE: No thyromegaly was palpated LYMPHATICS: No cervical chain or axillary nodes were noted HEMATOPOIETIC: No bruising NECK: Supple, no JVD, no thyromegaly was noted LUNGS: Clear to auscultation in all lung [place] without rhonchi or wheezing HEART: RRR, S!, S2 present. Peripheral pulses intact, no obvious murmurs noted ABDOMEN: Soft, nontender. Positive bowel sounds, no organomegaly, normal bowel sounds EXTREMITIES: Without clubbing, cyanosis, or edema. Pedal pulses intact. Negative Homans sign NEUROLOGIC: Normal speech and tone. A&O x 3, moves all extremities, no obvious focal deficits PSYCHIATRIC: Normal affect, normal mood. Stable SKIN: No ulcerations or rashes, good skin turgor, no jaundice VASCULAR: Good capillary refill, neurovascular bundle appears to be intact Labs: Labs: Laboratory Tests Test 07/31/20 09:28 07/31/20 09:30 07/31/20 10:47 07/31/20 12:08 Glucose (Fingerstick) 437 mg/dL (70-99) 199 mg/dL (70-99) Urine Collection Type Unknown Urine Color Yellow Urine Clarity Clear Urine pH 6.5 (<5.0-8.0) Urine Specific [place] 1.025 (1.000-1.030) Urine Protein Negative mg/dL (NEG-TRACE) Urine Glucose (UA) >=1000 mg/dL (NEG) Urine Ketones (Stick) Negative mg/dL (NEG) Urine Blood Negative (NEG) Urine Nitrite Negative (NEG) Urine Bilirubin Negative (NEG) Urine Urobilinogen Dipstick 0.2 mg/dL (0.2 mg/dL) Urine Leukocyte Esterase Negative (NEG) Urine RBC 0 /HPF (0-2) Urine WBC Rare /HPF (0-4) Urine Squamous Epithelial Cells Occ /LPF Urine Bacteria 0 /HPF (0-FEW) White Blood Count 5.5 x10^3/uL (4.0-11.0) Red Blood Count 4.38 x10^6/uL (3.50-5.40) Hemoglobin 13.7 g/dL (12.0-15.5) Hematocrit 40.7 % (36.0-47.0) Mean Corpuscular Volume 93 fL (79-100) Mean Corpuscular Hemoglobin 31 pg (25-35) Mean Corpuscular Hemoglobin Concent 34 g/dL (31-37) Red Cell Distribution Width 13.0 % (11.5-14.5) Platelet Count 310 x10^3/uL (140-400) Neutrophils (%) (Auto) 57 % (31-73) Lymphocytes (%) (Auto) 31 % (24-48) Monocytes (%) (Auto) 10 % (0-9) Eosinophils (%) (Auto) 1 % (0-3) Basophils (%) (Auto) 1 % (0-3) Neutrophils # (Auto) 3.1 x10^3/uL (1.8-7.7) Lymphocytes # (Auto) 1.7 x10^3/uL (1.0-4.8) Monocytes # (Auto) 0.5 x10^3/uL (0.0-1.1) Eosinophils # (Auto) 0.0 x10^3/uL (0.0-0.7) Basophils # (Auto) 0.1 x10^3/uL (0.0-0.2) Sodium Level 134 mmol/L (136-145) Potassium Level 2.8 mmol/L (3.5-5.1) Chloride Level 98 mmol/L (98-107) Carbon Dioxide Level 23 mmol/L (21-32) Anion Gap 13 (6-14) Blood Urea Nitrogen 11 mg/dL (7-20) Creatinine 1.1 mg/dL (0.6-1.0) Estimated GFR (Cockcroft-Gault) 48.6 BUN/Creatinine Ratio 10 (6-20) Glucose Level 379 mg/dL (70-99) Calcium Level 8.8 mg/dL (8.5-10.1) Magnesium Level 2.0 mg/dL (1.8-2.4) Total Bilirubin 0.4 mg/dL (0.2-1.0) Aspartate Amino Transf (AST/SGOT) 22 U/L (15-37) Alanine Aminotransferase (ALT/SGPT) 25 U/L (14-59) Alkaline Phosphatase 97 U/L (46-116) Total Protein 7.5 g/dL (6.4-8.2) Albumin 3.8 g/dL (3.4-5.0) Albumin/Globulin Ratio 1.0 (1.0-1.7) Lipase 201 U/L (73-393) Laboratory Tests Test 07/31/20 09:28 07/31/20 09:30 07/31/20 10:47 07/31/20 12:08 Glucose (Fingerstick) 437 mg/dL (70-99) 199 mg/dL (70-99) Urine Collection Type Unknown Urine Color Yellow Urine Clarity Clear Urine pH 6.5 (<5.0-8.0) Urine Specific [place] 1.025 (1.000-1.030) Urine Protein Negative mg/dL (NEG-TRACE) Urine Glucose (UA) >=1000 mg/dL (NEG) Urine Ketones (Stick) Negative mg/dL (NEG) Urine Blood Negative (NEG) Urine Nitrite Negative (NEG) Urine Bilirubin Negative (NEG) Urine Urobilinogen Dipstick 0.2 mg/dL (0.2 mg/dL) Urine Leukocyte Esterase Negative (NEG) Urine RBC 0 /HPF (0-2) Urine WBC Rare /HPF (0-4) Urine Squamous Epithelial Cells Occ /LPF Urine Bacteria 0 /HPF (0-FEW) White Blood Count 5.5 x10^3/uL (4.0-11.0) Red Blood Count 4.38 x10^6/uL (3.50-5.40) Hemoglobin 13.7 g/dL (12.0-15.5) Hematocrit 40.7 % (36.0-47.0) Mean Corpuscular Volume 93 fL (79-100) Mean Corpuscular Hemoglobin 31 pg (25-35) Mean Corpuscular Hemoglobin Concent 34 g/dL (31-37) Red Cell Distribution Width 13.0 % (11.5-14.5) Platelet Count 310 x10^3/uL (140-400) Neutrophils (%) (Auto) 57 % (31-73) Lymphocytes (%) (Auto) 31 % (24-48) Monocytes (%) (Auto) 10 % (0-9) Eosinophils (%) (Auto) 1 % (0-3) Basophils (%) (Auto) 1 % (0-3) Neutrophils # (Auto) 3.1 x10^3/uL (1.8-7.7) Lymphocytes # (Auto) 1.7 x10^3/uL (1.0-4.8) Monocytes # (Auto) 0.5 x10^3/uL (0.0-1.1) Eosinophils # (Auto) 0.0 x10^3/uL (0.0-0.7) Basophils # (Auto) 0.1 x10^3/uL (0.0-0.2) Sodium Level 134 mmol/L (136-145) Potassium Level 2.8 mmol/L (3.5-5.1) Chloride Level 98 mmol/L (98-107) Carbon Dioxide Level 23 mmol/L (21-32) Anion Gap 13 (6-14) Blood Urea Nitrogen 11 mg/dL (7-20) Creatinine 1.1 mg/dL (0.6-1.0) Estimated GFR (Cockcroft-Gault) 48.6 BUN/Creatinine Ratio 10 (6-20) Glucose Level 379 mg/dL (70-99) Calcium Level 8.8 mg/dL (8.5-10.1) Magnesium Level 2.0 mg/dL (1.8-2.4) Total Bilirubin 0.4 mg/dL (0.2-1.0) Aspartate Amino Transf (AST/SGOT) 22 U/L (15-37) Alanine Aminotransferase (ALT/SGPT) 25 U/L (14-59) Alkaline Phosphatase 97 U/L (46-116) Total Protein 7.5 g/dL (6.4-8.2) Albumin 3.8 g/dL (3.4-5.0) Albumin/Globulin Ratio 1.0 (1.0-1.7) Lipase 201 U/L (73-393) Images: Images Prior CT abdomen chest and pelvis reviewed from yesterday Assessment/Plan Assessment/Plan Hyperglycemia uncontrolled Hypertensive emergency MIKE due to vasomotor nephropathy Acute electrolyte derangementhyponatremia, hypokalemia Admit to medicine for further management Medication reconciliation High intensity R ISS and Accu-Cheks Labetalol IV as needed for systolic blood pressures greater than 180 Inpatient blood pressure goals between 140-1 80 Orthostatic vital signs P.o. electrolyte replacement as needed PT OT Heparin for DVT prophylaxis Protonix GI prophylaxis ADA diet Full code Discussed with RN and SW Disposition inpatient management as above Surrogate decision maker is the daughter Justifications for Admission Other Justification SIDDHARTH VILLANUEVA MD Jul 31, 2020 13:39
[2020-07-31] MEDS ORDERED: ACETAMINOPHEN 325 MG TABLET. PO PRN (13:45)
[2020-07-31] MEDS ORDERED: DOCUSATE SODIUM 100 MG CAPSULE. PO PRN (13:45)
[2020-07-31] MEDS ORDERED: ONDANSETRON PF 4 MG/2 ML VIAL. IVP PRN (13:45)
[2020-07-31] MEDS ORDERED: SENNOSIDES 8.6 MG TABLET PO PRN (13:45)
[2020-07-31] MEDS: amLODIPine BESYLATE 5 MG TABLET PO SCH (13:57)
[2020-07-31 15:00] VITALS: BP 138/65
[2020-07-31] MEDS: METOCLOPRAMIDE ORAL SOLN 10 MG/10 ML SOLUTION. PO SCH ×2 (16:00→21:00)
[2020-07-31] MEDS: CARVEDILOL 6.25 MG TABLET. PO SCH (17:03)
[2020-07-31] MEDS: INSULIN LISPRO 300 UNITS/3 ML VIAL. SQ SCH ×2 (17:12→17:13)
[2020-07-31 19:00] VITALS: BP 126/62
[2020-07-31] MEDS: levETIRAcetam 500 MG TABLET PO SCH (21:00)
[2020-07-31] MEDS: ENOXAPARIN 40 MG/0.4 ML SYRINGE. SQ SCH (21:00)
[2020-07-31] MEDS: ZOLPIDEM 5 MG TABLET. PO SCH (21:00)
[2020-07-31] MEDS: ATORVASTATIN CALCIUM 40 MG TABLET. PO SCH (21:00)
[2020-07-31] MEDS: INSULIN GLARGINE SYRINGE. SQ SCH (22:39)
[2020-07-31 23:00] VITALS: BP 123/57
[2020-08-01] MEDS: MORPHINE SULFATE 4 MG/ML VIAL. IV PRN ×3 (02:01→11:18)
[2020-08-01] MEDS: IV NORMAL SALINE 1000ML BAG 1,000 ML IV SCH ×2 (02:02→03:41)
[2020-08-01 02:53] VITALS: BP 145/66
[2020-08-01] MEDS: HYDROcodone/APAP 5/325MG 1 TAB TABLET PO PRN ×3 (03:39→16:43)
[2020-08-01] MEDS: LEVOTHYROXINE 75 MCG TABLET PO SCH (06:18)
[2020-08-01 07:00] VITALS: BP 163/74
[2020-08-01] MEDS: INSULIN LISPRO 300 UNITS/3 ML VIAL. SQ SCH ×6 (08:00→17:32)
[2020-08-01] MEDS: ASPIRIN CHEWABLE 81 MG TABLET. PO SCH (08:33)
[2020-08-01] MEDS: MULTIVITAMIN with MINERAL TABLET. PO SCH (08:33)
[2020-08-01] MEDS: levETIRAcetam 500 MG TABLET PO SCH ×2 (08:33→19:51)
[2020-08-01] MEDS: METOCLOPRAMIDE ORAL SOLN 10 MG/10 ML SOLUTION. PO SCH ×4 (08:33→19:51)
[2020-08-01] MEDS: LOSARTAN POTASSIUM 50 MG TABLET. PO SCH (08:34)
[2020-08-01] MEDS: CARVEDILOL 6.25 MG TABLET. PO SCH ×2 (08:34→17:25)
[2020-08-01] MEDS: CLOPIDOGREL BISULFATE 75 MG TABLET PO SCH (08:34)
[2020-08-01] MEDS: amLODIPine BESYLATE 5 MG TABLET PO SCH (08:35)
[2020-08-01] MEDS: ISOSORBIDE MONONITRATE ER 30 MG TAB.ER.24H PO SCH (08:35)
[2020-08-01] MEDS: PANTOPRAZOLE 40 MG TABLET.DR. PO SCH (08:35)
[2020-08-01] MEDS: INSULIN GLARGINE SYRINGE. SQ SCH ×2 (08:52→20:10)
[2020-08-01] MEDS: CYANOCOBALAMIN (VITAMIN B-12) 1,000 MCG TABLET. PO SCH (09:00)
--- NOTE | 2020-08-01 10:49 | PDOC1 ---
History and Physical Date of Admission Date of Admission DATE: 08/01/20 TIME: 10:44 Identification/Chief Complaint Chief Complaint hyperglycemia, chest pain Source Source: Chart review, Patient History of Present Illness History of Present Illness Ms. Edwards, is a pleasant 74-year-old female with multiple medical morbidities admittted from ER fro uncontrolled blood glucose levels. She states that she measured her sugars last night because she was having some nausea and her sugar levels right at 500s. she mentions her daughter dulce thorpe, and had a convoluted story about who was her doctor and who she was seeing at other hospitals and for what. she says "the insulin isnt working" and her sugars just keep going up and up. Patient was also in the ER the day before after a fall, scan neg, but she complains of neck pain and chest pain after her fall.. She is recently trying to establish care with Dr. Black and follows with an victim advocate at [facility]. Patient continues to complain of pain in her chest region which only increases with intensity with palpation and deep breaths. Of note, patient does have 2 caretakers to help her manage her home situation, she does not have her daughters phone number, I asked if I could call. 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15, and gastroparesis Cardiovascular: CAD, HTN, Hyperlipidemia Pulmonary: Bronchitis CENTRAL NERVOUS SYSTEM: Seizure GI: GERD, Other Heme/Onc: No pertinent hx Hepatobiliary: No pertinent hx Psych: No pertinent hx Musculoskeletal: low back pain, Osteoarthritis Rheumatologic: No pertinent hx Infectious disease: No pertinent hx Renal/: Chronic renal insuff, Other Endocrine: Diabetes Past Surgical History Past Surgical History: Appendectomy, Cholecystectomy, CABG, Other Family History Family History: Hypertension Social History Smoke: No ALCOHOL: none Drugs: None Current Problem List Problem List Problems Medical Problems: (1) Accelerated hypertension Status: Acute (2) Hyperglycemia Status: Acute (3) Hypokalemia Status: Acute Current Medications Current Medications Current Medications Ondansetron HCl (Zofran) 4 mg 1X ONCE IVP Last administered on 07/31/20at 11:06; Start 07/31/20 at 09:45; Stop 07/31/20 at 09:48; Status DC Sodium Chloride 1,000 ml @ 1,000 mls/hr 1X ONCE IV Last administered on 07/31/20at 11:06; Start 07/31/20 at 09:45; Stop 07/31/20 at 10:44; Status DC Insulin Human Regular (HumuLIN R VIAL) 6 unit 1X ONCE IV Last administered on 07/31/20at 11:05; Start 07/31/20 at 09:45; Stop 07/31/20 at 09:48; Status DC Potassium Chloride/Water 10 ml @ 10 mls/hr Q1H IV ; Start 07/31/20 at 11:30; Stop 07/31/20 at 13:13; Status DC Potassium Chloride (Klor-Con) 40 meq 1X ONCE PO Last administered on 07/31/20at 11:41; Start 07/31/20 at 11:15; Stop 07/31/20 at 11:17; Status DC Ondansetron HCl (Zofran) 4 mg PRN Q8HRS PRN IV NAUSEA/VOMITING Last administered on 07/31/20at 13:57; Start 07/31/20 at 11:30; Stop 08/01/20 at 11:29 Morphine Sulfate (Morphine Sulfate) 4 mg PRN Q4HRS PRN IV PAIN Last administered on 08/01/20at 06:19; Start 07/31/20 at 11:30; Stop 08/01/20 at 11:29 Sodium Chloride 1,000 ml @ 125 mls/hr Q8H IV Last administered on 08/01/20at 03:41; Start 07/31/20 at 11:30; Stop 08/01/20 at 11:29 Hydralazine HCl (Apresoline Inj) 10 mg 1X ONCE IVP ; Start 07/31/20 at 11:45; Stop 07/31/20 at 11:46; Status DC Acetaminophen/ Hydrocodone Bitart (Lortab 5/325) 1 tab PRN Q6HRS PRN PO PAIN Last administered on 08/01/20at 09:53; Start 07/31/20 at 13:00 Potassium Chloride (Klor-Con) 40 meq 1X ONCE PO Last administered on 07/31/20at 13:29; Start 07/31/20 at 14:00; Stop 07/31/20 at 14:01; Status DC Potassium Chloride (Klor-Con) 40 meq 1X ONCE PO Last administered on 07/31/20at 15:59; Start 07/31/20 at 15:00; Stop 07/31/20 at 15:01; Status DC Insulin Human Lispro (HumaLOG) 0-9 UNITS TIDWMEALS SQ Last administered on 07/31/20at 17:12; Start 07/31/20 at 17:00 Dextrose (Dextrose 50%-Water Syringe) 12.5 gm PRN Q15MIN PRN IV SEE COMMENTS; Start 07/31/20 at 13:15; Status Cancel Insulin Human Lispro (HumaLOG) 20 units TIDWMEALS SQ Last administered on 08/01/20at 08:55; Start 07/31/20 at 17:00 Insulin Glargine (Lantus Syringe) 30 unit BID SQ Last administered on 08/01/20at 08:52; Start 07/31/20 at 21:00 Aspirin (Aspirin Chewable) 81 mg DAILY PO Last administered on 08/01/20at 08:33; Start 08/01/20 at 09:00 Atorvastatin Calcium (Lipitor) 40 mg QHS PO Last administered on 07/31/20at 21:00; Start 07/31/20 at 21:00 Clopidogrel Bisulfate (Plavix) 75 mg DAILY PO Last administered on 08/01/20at 08:34; Start 08/01/20 at 09:00 Cyanocobalamin (Vitamin B-12) 1,000 mcg DAILY PO ; Start 08/01/20 at 09:00 Dicyclomine HCl (Bentyl) 10 mg PRN Q6HRS PRN PO abdominal cramps; Start 07/31/20 at 13:30 Isosorbide Mononitrate (Imdur) 30 mg DAILY PO Last administered on 08/01/20at 08:35; Start 08/01/20 at 09:00 Levetiracetam (Keppra) 1,000 mg BID PO Last administered on 08/01/20at 08:33; Start 07/31/20 at 21:00 Levothyroxine Sodium (Synthroid) 75 mcg DAILY07 PO Last administered on at 06:18; Start 08/01/20 at 07:00 Lorazepam (Ativan) 1 mg PRN TID PRN PO ANXIETY / AGITATION Last administered on 08/01/20at 08:40; Start 07/31/20 at 13:30 Losartan Potassium (Cozaar) 50 mg DAILY PO Last administered on 08/01/20at 08:34; Start 08/01/20 at 09:00 Metoclopramide HCl (Reglan Oral Solution) 10 mg TIDACHC PO Last administered on 08/01/20at 08:33; Start 07/31/20 at 16:30 Multivitamins (Thera M Plus) 1 tab DAILY PO Last administered on 08/01/20at 08:33; Start 08/01/20 at 09:00 Nitroglycerin (Nitrostat) 0.4 mg PRN Q5MIN PRN SL CHEST PAIN; Start 07/31/20 at 13:30 Zolpidem Tartrate (Ambien) 5 mg HS PO Last administered on 07/31/20at 21:00; Start 07/31/20 at 21:00 Pantoprazole Sodium (Protonix) 40 mg DAILYAC PO Last administered on 08/01/20at 08:35; Start 08/01/20 at 07:30 Amlodipine Besylate (Norvasc) 5 mg DAILY PO Last administered on 08/01/20at 08:35; Start 07/31/20 at 14:00 Carvedilol (Coreg) 6.25 mg BIDWMEALS PO Last administered on 08/01/20at 08:34; Start 07/31/20 at 17:00 Labetalol HCl (Normodyne Iv Push) 20 mg PRN Q2HR PRN IVP HYPERTENSION; Start 07/31/20 at 13:30 Sennosides (Senna) 17.2 mg PRN BID PRN PO CONSTIPATION; Start 07/31/20 at 13:45 Docusate Sodium (Colace) 100 mg PRN DAILY PRN PO HARD STOOLS; Start 07/31/20 at 13:45 Ondansetron HCl (Zofran) 4 mg PRN Q6HRS PRN IVP NAUSEA/VOMITING; Start 07/31/20 at 13:45 Dextrose (Dextrose 50%-Water Syringe) 12.5 gm PRN Q15MIN PRN IV SEE COMMENTS; Start 07/31/20 at 13:45 Acetaminophen (Tylenol) 650 mg PRN Q4HRS PRN PO TEMP OVER 100.4F OR MILD PAIN; Start 07/31/20 at 13:45 Enoxaparin Sodium (Lovenox 40mg Syringe) 40 mg Q24H SQ Last administered on 07/31/20at 21:00; Start 07/31/20 at 21:00 Morphine Sulfate (Morphine Sulfate) 2 mg PRN Q2HR PRN IV SEVERE PAIN 7-10; Start 07/31/20 at 04:00; Stop 08/01/20 at 03:59; Status DC Active Scripts Active [Pantoprazole] 40 MG Tablet.dr 40 Mg PO DAILYAC Cozaar (Losartan Potassium) 50 Mg Tablet 50 Mg PO DAILY Atorvastatin Calcium 40 Mg Tablet 40 Mg PO QHS Isosorbide Mononitrate Er (Isosorbide Mononitrate) 30 Mg Tab.er.24h 30 Mg PO DAILY Oxycodone Hcl Immed.release (Oxycodone Hcl) 10 Mg Tablet 10 Mg PO PRN Q6HRS PRN Thera-M Tablet (Multivits,Ca,Minerals/Iron/Fa) 1 Each Tablet 1 Tab PO DAILY 30 Days Synthroid (Levothyroxine Sodium) 75 Mcg Tablet 75 Mcg PO DAILY07 30 Days Metoprolol Succinate 50 Mg Tab.er.24h 50 Mg PO DAILY 30 Days Dicyclomine Hcl 10 Mg Capsule 10 Mg PO PRN Q6HRS PRN 30 Days Vitamin B-12 (Cyanocobalamin (Vitamin B-12)) 1,000 Mcg Tablet 1,000 Mcg PO DAILY 30 Days Metoclopramide Hcl 10 Mg/10 Ml Solution 10 Mg PO TIDACHC 30 Days Nitrostat (Nitroglycerin) 0.4 Mg Tab.subl 0.4 Mg SL PRN Q5MIN PRN 30 Days Keppra (Levetiracetam) 500 Mg Tablet 1,000 Mg PO BID 30 Days [Pioglitazone Hcl] 15 MG Tablet 45 Mg PO DAILY Lorazepam 1 Mg Tablet 1 Mg PO PRN TID PRN Ondansetron Odt (Ondansetron) 4 Mg Tab.rapdis 4 Mg PO TIDAC FENTANYL 25mcg/hr (Fentanyl) 1 Each Patch.td72 1 Patch TD Q3DAYS Reported Aspirin 81 Mg Tab.chew 1 Tab PO DAILY Ambien (Zolpidem Tartrate) 5 Mg Tablet 5 Mg PO HS Clopidogrel (Clopidogrel Bisulfate) 75 Mg Tablet 75 Mg PO DAILY Allergies Allergies: Coded Allergies: Iodinated Contrast Media (Verified Allergy, Severe, Anaphylaxis, 05/27/18) Penicillins (Verified Allergy, Intermediate, 05/27/18) atenolol (Verified Allergy, Intermediate, TAKES METOPROLOL AT HOME, 05/27/18) erythromycin base (Verified Allergy, Intermediate, 05/27/18) iodine (Verified Allergy, Intermediate, 05/27/18) levofloxacin (Verified Allergy, Intermediate, 05/27/18) pregabalin (Verified Allergy, Intermediate, 05/27/16) Physical Exam General: Alert, Oriented X3, mild distress HEENT: Atraumatic Abdomen: Normal bowel sounds Rectal Exam: not examined Extremities: No cyanosis, Normal pulses Skin: No breakdown Neuro: Normal speech, Normal tone, Sensation intact Psych/Mental Status: Mental status NL, Mood NL Vitals Vitals Vital Signs Date Time Temp Pulse Resp B/P (MAP) Pulse Ox O2 Delivery O2 Flow Rate FiO2 08/01/20 08:35 64 163/74 08/01/20 07:00 97.8 20 94 Room Air 97.8 Labs Labs Laboratory Tests Test 07/31/20 09:28 07/31/20 09:30 07/31/20 10:47 07/31/20 12:08 Glucose (Fingerstick) 437 mg/dL (70-99) 199 mg/dL (70-99) Urine Collection Type Unknown Urine Color Yellow Urine Clarity Clear Urine pH 6.5 (<5.0-8.0) Urine Specific [place] 1.025 (1.000-1.030) Urine Protein Negative mg/dL (NEG-TRACE) Urine Glucose (UA) >=1000 mg/dL (NEG) Urine Ketones (Stick) Negative mg/dL (NEG) Urine Blood Negative (NEG) Urine Nitrite Negative (NEG) Urine Bilirubin Negative (NEG) Urine Urobilinogen Dipstick 0.2 mg/dL (0.2 mg/dL) Urine Leukocyte Esterase Negative (NEG) Urine RBC 0 /HPF (0-2) Urine WBC Rare /HPF (0-4) Urine Squamous Epithelial Cells Occ /LPF Urine Bacteria 0 /HPF (0-FEW) White Blood Count 5.5 x10^3/uL (4.0-11.0) Red Blood Count 4.38 x10^6/uL (3.50-5.40) Hemoglobin 13.7 g/dL (12.0-15.5) Hematocrit 40.7 % (36.0-47.0) Mean Corpuscular Volume 93 fL (79-100) Mean Corpuscular Hemoglobin 31 pg (25-35) Mean Corpuscular Hemoglobin Concent 34 g/dL (31-37) Red Cell Distribution Width 13.0 % (11.5-14.5) Platelet Count 310 x10^3/uL (140-400) Neutrophils (%) (Auto) 57 % (31-73) Lymphocytes (%) (Auto) 31 % (24-48) Monocytes (%) (Auto) 10 % (0-9) Eosinophils (%) (Auto) 1 % (0-3) Basophils (%) (Auto) 1 % (0-3) Neutrophils # (Auto) 3.1 x10^3/uL (1.8-7.7) Lymphocytes # (Auto) 1.7 x10^3/uL (1.0-4.8) Monocytes # (Auto) 0.5 x10^3/uL (0.0-1.1) Eosinophils # (Auto) 0.0 x10^3/uL (0.0-0.7) Basophils # (Auto) 0.1 x10^3/uL (0.0-0.2) Sodium Level 134 mmol/L (136-145) Potassium Level 2.8 mmol/L (3.5-5.1) Chloride Level 98 mmol/L (98-107) Carbon Dioxide Level 23 mmol/L (21-32) Anion Gap 13 (6-14) Blood Urea Nitrogen 11 mg/dL (7-20) Creatinine 1.1 mg/dL (0.6-1.0) Estimated GFR (Cockcroft-Gault) 48.6 BUN/Creatinine Ratio 10 (6-20) Glucose Level 379 mg/dL (70-99) Calcium Level 8.8 mg/dL (8.5-10.1) Magnesium Level 2.0 mg/dL (1.8-2.4) Total Bilirubin 0.4 mg/dL (0.2-1.0) Aspartate Amino Transf (AST/SGOT) 22 U/L (15-37) Alanine Aminotransferase (ALT/SGPT) 25 U/L (14-59) Alkaline Phosphatase 97 U/L (46-116) Troponin I Quantitative < 0.017 ng/mL (0.000-0.055) Total Protein 7.5 g/dL (6.4-8.2) Albumin 3.8 g/dL (3.4-5.0) Albumin/Globulin Ratio 1.0 (1.0-1.7) Lipase 201 U/L (73-393) Test 07/31/20 16:52 07/31/20 21:14 07/31/20 22:18 08/01/20 07:39 Glucose (Fingerstick) 285 mg/dL (70-99) 101 mg/dL (70-99) 139 mg/dL (70-99) 233 mg/dL (70-99) Laboratory Tests Test 07/31/20 10:47 07/31/20 12:08 07/31/20 16:52 07/31/20 21:14 White Blood Count 5.5 x10^3/uL (4.0-11.0) Red Blood Count 4.38 x10^6/uL (3.50-5.40) Hemoglobin 13.7 g/dL (12.0-15.5) Hematocrit 40.7 % (36.0-47.0) Mean Corpuscular Volume 93 fL (79-100) Mean Corpuscular Hemoglobin 31 pg (25-35) Mean Corpuscular Hemoglobin Concent 34 g/dL (31-37) Red Cell Distribution Width 13.0 % (11.5-14.5) Platelet Count 310 x10^3/uL (140-400) Neutrophils (%) (Auto) 57 % (31-73) Lymphocytes (%) (Auto) 31 % (24-48) Monocytes (%) (Auto) 10 % (0-9) Eosinophils (%) (Auto) 1 % (0-3) Basophils (%) (Auto) 1 % (0-3) Neutrophils # (Auto) 3.1 x10^3/uL (1.8-7.7) Lymphocytes # (Auto) 1.7 x10^3/uL (1.0-4.8) Monocytes # (Auto) 0.5 x10^3/uL (0.0-1.1) Eosinophils # (Auto) 0.0 x10^3/uL (0.0-0.7) Basophils # (Auto) 0.1 x10^3/uL (0.0-0.2) Sodium Level 134 mmol/L (136-145) Potassium Level 2.8 mmol/L (3.5-5.1) Chloride Level 98 mmol/L (98-107) Carbon Dioxide Level 23 mmol/L (21-32) Anion Gap 13 (6-14) Blood Urea Nitrogen 11 mg/dL (7-20) Creatinine 1.1 mg/dL (0.6-1.0) Estimated GFR (Cockcroft-Gault) 48.6 BUN/Creatinine Ratio 10 (6-20) Glucose Level 379 mg/dL (70-99) Calcium Level 8.8 mg/dL (8.5-10.1) Magnesium Level 2.0 mg/dL (1.8-2.4) Total Bilirubin 0.4 mg/dL (0.2-1.0) Aspartate Amino Transf (AST/SGOT) 22 U/L (15-37) Alanine Aminotransferase (ALT/SGPT) 25 U/L (14-59) Alkaline Phosphatase 97 U/L (46-116) Troponin I Quantitative < 0.017 ng/mL (0.000-0.055) Total Protein 7.5 g/dL (6.4-8.2) Albumin 3.8 g/dL (3.4-5.0) Albumin/Globulin Ratio 1.0 (1.0-1.7) Lipase 201 U/L (73-393) Glucose (Fingerstick) 199 mg/dL (70-99) 285 mg/dL (70-99) 101 mg/dL (70-99) Test 07/31/20 22:18 08/01/20 07:39 Glucose (Fingerstick) 139 mg/dL (70-99) 233 mg/dL (70-99) VTE Prophylaxis Ordered VTE Prophylaxis Devices: No VTE Pharmacological Prophylaxi: Yes Assessment/Plan Assessment/Plan chest pain, angina, Hx CABG, accelerated htn on admit, better, consult CV nausea and vomiting,. known gastropareiss hypokalemia, hyperosmolar, insulin, fluid, suspect some infection, UA pending obese, BMI 32 DM1 Justifications for Admission Other Justification HYPERGLYCEMIA AND HTN EMERGENCY OLIVIER ARITA MD Aug 01, 2020 10:49
[2020-08-01 11:00] VITALS: BP 103/54
--- NOTE | 2020-08-01 11:14 | NUR ---
SW following for discharge planning. Spoke with RN and reviewed chart. Pt from home with caregivers. Pt's spouse recently . Pt on room air, IV pain medication, ADA diet. PT/OT to evaluate. GI consulted. SW following.
--- NOTE | 2020-08-01 12:25 | PDOC2 ---
PAR[facility] CARRION [facility] [employer] 08/01/20 1225: CARDIAC CONSULT DATE OF CONSULT Date of Consult DATE: 08/01/20 TIME: 12:22 REASON FOR CONSULT Reason for Consult: Chest pain REFERRING PHYSICIAN Referring Physician: Dr. Cuevas SOURCE Source: Chart review, Patient HISTORY OF PRESENT ILLNESS HISTORY OF PRESENT ILLNESS This is a 74 yo female who presented secondary to hyperglycemia with BS > 500. Patient has mechanical fall down concrete stairs last week and has had increase pain. Was evaluated in ED. CT head, thoracic, and lumber spine without acute findings. Has history of gastroparesis. Has had some nausea/vomiting today following eating. Also reports 2 weeks of throbbing pain in her neck that radiates down to her central chest. No associated shortness of breath, dizziness, diaphoresis, or palpitations. Pain seems to be worse at night when she is more tired. Does reports diaphoresis at night for the last year or so. Report compliance with meds. Is concerned about blood sugars running consistently high. Has a history of CAD s/p CABG and PCI/stent. Most recent cath in 2017 as noted below. Has not been seen in our clinic since 2018. Daughter is developer designer at [employer], who she consults with. Denies any cardiac testing outside of what has been done here at [facility]. PAST MEDICAL HISTORY Past Medical History Cardiovascular: CAD, HTN, Hyperlipidemia Pulmonary: Bronchitis CENTRAL NERVOUS SYSTEM: Seizure GI: GERD, gastroparesis Heme/Onc: No pertinent hx Hepatobiliary: No pertinent hx Psych: No pertinent hx Musculoskeletal: low back pain, Osteoarthritis Rheumatologic: No pertinent hx Infectious disease: No pertinent hx Renal/: Chronic renal insuff, Other Endocrine: Diabetes PAST SURGICAL HISTORY Past Surgical History Appendectomy, Cholecystectomy, CABG, LHC, PCI, Recent T6 vertebroplasty FAMILY HISTORY Family History: Hypertension SOCIAL HISTORY Social History Smoke: No ALCOHOL: none Drugs: None Lives: with Family CURRENT MEDICATIONS CURRENT MEDICATIONS Current Medications Medications (Trade) Dose Ordered Sig/Melanie Route PRN Reason Start Time Stop Time Status Last Admin Dose Admin Acetaminophen/ Hydrocodone Bitart (Lortab 5/325) 1 tab PRN Q6HRS PRN PO PAIN 07/31/20 13:00 08/01/20 09:53 Potassium Chloride (Klor-Con) 40 meq 1X ONCE PO 07/31/20 14:00 07/31/20 14:01 DC 07/31/20 13:29 Potassium Chloride (Klor-Con) 40 meq 1X ONCE PO 07/31/20 15:00 07/31/20 15:01 DC 07/31/20 15:59 Insulin Human Lispro (HumaLOG) 0-9 UNITS TIDWMEALS SQ 07/31/20 17:00 07/31/20 17:12 Insulin Human Lispro (HumaLOG) 20 units TIDWMEALS SQ 07/31/20 17:00 08/01/20 08:55 Insulin Glargine (Lantus Syringe) 30 unit BID SQ 07/31/20 21:00 08/01/20 08:52 Aspirin (Aspirin Chewable) 81 mg DAILY PO 08/01/20 09:00 08/01/20 08:33 Atorvastatin Calcium (Lipitor) 40 mg QHS PO 07/31/20 21:00 07/31/20 21:00 Clopidogrel Bisulfate (Plavix) 75 mg DAILY PO 08/01/20 09:00 08/01/20 08:34 Isosorbide Mononitrate (Imdur) 30 mg DAILY PO 08/01/20 09:00 08/01/20 08:35 Levetiracetam (Keppra) 1,000 mg BID PO 07/31/20 21:00 08/01/20 08:33 Levothyroxine Sodium (Synthroid) 75 mcg DAILY07 PO 08/01/20 07:00 08/01/20 06:18 Lorazepam (Ativan) 1 mg PRN TID PRN PO ANXIETY / AGITATION 07/31/20 13:30 08/01/20 08:40 Losartan Potassium (Cozaar) 50 mg DAILY PO 08/01/20 09:00 08/01/20 08:34 Metoclopramide HCl (Reglan Oral Solution) 10 mg TIDACHC PO 07/31/20 16:30 08/01/20 11:18 Multivitamins (Thera M Plus) 1 tab DAILY PO 08/01/20 09:00 08/01/20 08:33 Zolpidem Tartrate (Ambien) 5 mg HS PO 07/31/20 21:00 07/31/20 21:00 Pantoprazole Sodium (Protonix) 40 mg DAILYAC PO 08/01/20 07:30 08/01/20 08:35 Amlodipine Besylate (Norvasc) 5 mg DAILY PO 07/31/20 14:00 08/01/20 08:35 Carvedilol (Coreg) 6.25 mg BIDWMEALS PO 07/31/20 17:00 08/01/20 08:34 Enoxaparin Sodium (Lovenox 40mg Syringe) 40 mg Q24H SQ 07/31/20 21:00 07/31/20 21:00 ALLERGIES ALLERGIES: Coded Allergies: Iodinated Contrast Media (Verified Allergy, Severe, Anaphylaxis, 05/27/18) Penicillins (Verified Allergy, Intermediate, 05/27/18) atenolol (Verified Allergy, Intermediate, TAKES METOPROLOL AT HOME, 05/27/18) erythromycin base (Verified Allergy, Intermediate, 05/27/18) iodine (Verified Allergy, Intermediate, 05/27/18) levofloxacin (Verified Allergy, Intermediate, 05/27/18) pregabalin (Verified Allergy, Intermediate, 05/27/16) ROS Review of System 14 point ROS conducted with pertinent positives noted above in hPI PHYSICAL EXAM PHYSICAL EXAM General: Alert, Oriented X3, Cooperative, No acute distress HEENT: Atraumatic, Mucous membr. moist/pink Lungs: Clear to auscultation, Normal air movement. left chest tenderness up palpitation secondary to recent fall Heart: Regular rate, Normal S1, Normal S2 Abdomen: Soft, No tenderness Extremities: No cyanosis, No edema Skin: No breakdown, No significant lesion Neuro: Normal speech, Sensation intact Psych/Mental Status: Mental status NL, Mood WNL MUSCULOSKELETAL: Osteoarthritic changes both hands VITALS/I&O VITALS/I&O: Vital Signs Date Time Temp Pulse Resp B/P (MAP) Pulse Ox O2 Delivery O2 Flow Rate FiO2 08/01/20 11:00 98.1 72 18 103/54 (70) 95 Room Air 98.1 I & O 07/31/20 07/31/20 08/01/20 15:00 23:00 07:00 Intake Total 480 ml 960 ml Balance 480 ml 960 ml LABS Lab: Laboratory Tests Test 07/31/20 16:52 07/31/20 21:14 07/31/20 22:18 08/01/20 07:39 Glucose (Fingerstick) 285 mg/dL (70-99) H 101 mg/dL (70-99) H 139 mg/dL (70-99) H 233 mg/dL (70-99) H Test 08/01/20 11:41 Glucose (Fingerstick) 93 mg/dL (70-99) ECHOCARDIOGRAM ECHOCARDIOGRAM <Conclusion> The systolic function is mildly impaired. The Ejection Fraction is 40-45%. The apical inferoseptum appears to be dyskinetic versus abnormal septal motion due to conduction defect. Due to technically very difficult images, wall motion could not be accurately determined. DATE: 12/02/18 1536 STRESS TEST STRESS TEST Conclusion 1. No electrocardiographic changes suggestive of myocardial ischemia with pharmacological stress. 2. Moderate sized perfusion defect over the apex both with stress and rest suggestive of a scar. 3. Small to moderate sized perfusion defect over the anterior wall with stress suggestive of myocardial ischemia. 4. Hypokinesis over the apex and normal wall motion and wall thickening over the rest of the myocardium with an ejection fraction of 73%. 5. Scan indicates moderate riskfor f future cardiac events. DATE: 11/19/16 1839 HEART CATH HEART CATH Conclusion 1. Normal LVEDP 2. Three vessel CAD with patent stents in the LCx and RCA. 3. Patent [place]ES to LAD and SVG to D1 4. Severely diffusely diseased and small caliber mid to distal LAD that is not intervenable. 5. Severe ISR of the proximal LAD with poor outflow, stable compared to prior and again suboptimal for repeat intervention. Recommendations Aggressive Medical Therapy DATE: 11/20/16 1323 ASSESSMENT/PLAN ASSESSMENT/PLAN 1. Diabetes, II with hyperglycemia 2. Chest pain, mixed features. initial trop negative. Also with left lateral chest pain secondary to recent fall. Possibly secondary to small vessel disease 3. Nausea/vomiting with h/o gastroparesis; GI consulted 4. CAD; past CABG and PCI/stents with known diffuse disease. Most recent cath 2017 as noted above. Has not follow up in clinic since 2018. No recent cardiac workup reported 5. Accelerated hypertension; improved 6. Chronic systolic CHF with cardiomyopathy; Echo 11/28 with LVEF 40-45%. appears compensated 7. Hyperlipidemia 8. Seizure disorder 9. Recent mechanical fall down cement stairs. CT head, thoracic and lumbar spine without acute findings. Recommendations Trend trop Lipids Secondary prevention measures including ASA/Plavix, statin, imdur, and BB therapy. Has previously been on Ranexa without good response. Glucose control Echo to assess LV systolic function Consider further ischemic evaluation, possibly on an outpatient basis Further pending above JOSÉ MIGUEL CHAN MD 08/01/20 2764: CARDIAC CONSULT ASSESSMENT/PLAN ASSESSMENT/PLAN Pt. seen and examined. Agree with above TOPOGRAPHY TECHNICIAN note. Chest pain appears to be non-cardiac. She has various risk factors but even with SBP of > 200, she did not have any troponin elevation. She will continue medical therapy. Outpt ischemic testing. Left message for her daughter Steve regarding her care. Thanks PARIS CARRION APRN Aug 01, 2020 12:25 JOSÉ MIGUEL CHAN MD Aug 01, 2020 23:44
[2020-08-01 12:42] LABS: BASO % 1 % (0-3); EOS % 1 % (0-3); HEMATOCRIT 39.3 % (36.0-47.0); HEMOGLOBIN 13.3 g/dL (12.0-15.5); LYMPH % 35 % (24-48); MEAN CORPUSCULAR HEMOGLOBIN 32 pg (25-35); MEAN CORPUSCULAR HGB CONC 34 g/dL (31-37); MEAN CORPUSCULAR VOLUME 93 fL (79-100); MONO # 0.6 x10^3/uL (0.0-1.1); MONO % 11 % (0-9); NEUT # 2.9 x10^3/uL (1.8-7.7); NEUT % 52 % (31-73); PLATELET COUNT 309 x10^3/uL (140-400); RED BLOOD COUNT 4.21 x10^6/uL (3.50-5.40); RED CELL DISTRIBUTION WIDTH 13.2 % (11.5-14.5); WHITE BLOOD COUNT 5.6 x10^3/uL (4.0-11.0)
[2020-08-01 13:05] LABS: CALCIUM 7.3 mg/dL (8.5-10.1); CREATININE 0.7 mg/dL (0.6-1.0); GFR 81.8; MAGNESIUM 1.8 mg/dL (1.8-2.4); PHOSPHORUS 1.3 mg/dL (2.6-4.7); POTASSIUM 3.5 mmol/L (3.5-5.1)
--- NOTE | 2020-08-01 13:05 | PDOC2 ---
GI CONSULT Date of Service: DATE: 08/01/20 TIME: 12:37 Reason For Consult: gastroparesis HPI: HPI: 74 y/o female who we have seen in the past. Recent fall down cement steps, hurt left side of abdomen. Since then, blood sugars have been "out of control" - yesterday was 581 when she woke up. Also says normal range for her in 300-400 range. "The last time they did an A1c is was 11." Indicates she has recently seen an monotype mechanic who is having her keep track of glucose readings. Her daughter is a doctor and told her to come to the ER. Before the fall, she was having "carotid pain" - points to right side of neck. "Throbbing" pain that is constant (not worse w/ eating but "I can feel it") and radiates across neck to left. Additionally, she has to be really careful eating because food gets stuck in her throat/mid chest almost every time she eats and she sometimes has to cough it up and spit it out. Vomited scrambled eggs this morning. Finishing lunch of burger, broccoli, salad, cake, and soda now. She doesn't want to back off on diet because it doesn't matter and also she says she hasn't eaten in a couple days. Also has had diarrhea. A couple days ago had yellow runny stools from the middle of the night until 5:00 p.m. the next day - saw red blood a couple times which was concerning. Yesterday she had 6 stools. No stools today. D/w nurse - unaware of any vomiting earlier today, c/o "carotid" pain, and aski yamel for morphine. H/o gastroparesis w/ chronic n/v on Reglan 10mg pills TID-QID ACHS. Domperidone was ineffective and e-mycin made everything worse. H/o GERD on Protonix QD - takes w/ Zofran and Reglan every morning. Reports h/o IBS - "one day I'll have diarrhea all day long and the next days I'm constipated." Rarely takes Imodium. EGD 06/2016: healed grade III reflux, small hiatal hernia, normal duodenum. Colonoscopy 2012: diverticulosis and hemorrhoids. Barium Swallow 2018: prominent cricopharyngeal impression in the cervical esophagus, small hiatal hernia. GES 03/2019: delayed emptying (18% retention at 4 hours). S/p cholecystectomy. No liver, pancreas, or PUD history. Chronic pain - apparently no longer on oxycodone or Fentanyl patch - says Dr. Masters told her it slowed her bowels down too much. Was recently given hydrocodone after fall. CAD on Plavix and ASA. Was hypertensive, hyperglycemic, and hypokalemic in ER. CT A/P unremarkable 07/30. Mentions several times she is a "hard stick" - has IV access now but apparently this has been an issue in the past w/ planned endoscopies and attempted labs. PMH: PMH: CAD, HTN, HLD, bronchitis, seizure, chronic pain, OA, CKD, IDDM, neuropathy, macular degeneration, bipolar, compression fractures, nephrolithiasis appendectomy, cholecystectomy, CABG, stents, vertebroplasty, right ankle surgery w/ hardware, knee replacement, tonsillectomy, non-functioning neuro-stimulator, hysterectomy FH: Family History: No pertinent hx Social History: Smoke: No ALCOHOL: none Drugs: None ROS: GEN: Denies fevers, chills, sweats HEENT: +neck pain CV: Denies chest pain RESP: Denies shortness of air, cough GI: Per HPI : +polyuria ENDO: Denies weight changes NEURO: Denies confusion, dizziness MSK: +chronic pain SKIN: Denies jaundice, pruritus Vitals: Vitals: Vital Signs Date Time Temp Pulse Resp B/P (MAP) Pulse Ox O2 Delivery O2 Flow Rate FiO2 08/01/20 11:00 98.1 72 18 103/54 (70) 95 Room Air 98.1 Labs: Labs: Laboratory Tests Test 07/31/20 16:52 07/31/20 21:14 07/31/20 22:18 08/01/20 07:39 Glucose (Fingerstick) 285 mg/dL (70-99) 101 mg/dL (70-99) 139 mg/dL (70-99) 233 mg/dL (70-99) Test 08/01/20 11:41 Glucose (Fingerstick) 93 mg/dL (70-99) Allergies: Coded Allergies: Iodinated Contrast Media (Verified Allergy, Severe, Anaphylaxis, 05/27/18) Penicillins (Verified Allergy, Intermediate, 05/27/18) atenolol (Verified Allergy, Intermediate, TAKES METOPROLOL AT HOME, 05/27/18) erythromycin base (Verified Allergy, Intermediate, 05/27/18) iodine (Verified Allergy, Intermediate, 05/27/18) levofloxacin (Verified Allergy, Intermediate, 05/27/18) pregabalin (Verified Allergy, Intermediate, 05/27/16) Medications: Current Medications Medications (Trade) Dose Ordered Sig/Melanie Route PRN Reason Start Time Stop Time Status Last Admin Dose Admin Acetaminophen/ Hydrocodone Bitart (Lortab 5/325) 1 tab PRN Q6HRS PRN PO PAIN 07/31/20 13:00 08/01/20 09:53 Potassium Chloride (Klor-Con) 40 meq 1X ONCE PO 07/31/20 14:00 07/31/20 14:01 DC 07/31/20 13:29 Potassium Chloride (Klor-Con) 40 meq 1X ONCE PO 07/31/20 15:00 07/31/20 15:01 DC 07/31/20 15:59 Insulin Human Lispro (HumaLOG) 0-9 UNITS TIDWMEALS SQ 07/31/20 17:00 07/31/20 17:12 Insulin Human Lispro (HumaLOG) 20 units TIDWMEALS SQ 07/31/20 17:00 08/01/20 08:55 Insulin Glargine (Lantus Syringe) 30 unit BID SQ 07/31/20 21:00 08/01/20 08:52 Aspirin (Aspirin Chewable) 81 mg DAILY PO 08/01/20 09:00 08/01/20 08:33 Atorvastatin Calcium (Lipitor) 40 mg QHS PO 07/31/20 21:00 07/31/20 21:00 Clopidogrel Bisulfate (Plavix) 75 mg DAILY PO 08/01/20 09:00 08/01/20 08:34 Isosorbide Mononitrate (Imdur) 30 mg DAILY PO 08/01/20 09:00 08/01/20 08:35 Levetiracetam (Keppra) 1,000 mg BID PO 07/31/20 21:00 08/01/20 08:33 Levothyroxine Sodium (Synthroid) 75 mcg DAILY07 PO 08/01/20 07:00 08/01/20 06:18 Lorazepam (Ativan) 1 mg PRN TID PRN PO ANXIETY / AGITATION 07/31/20 13:30 08/01/20 08:40 Losartan Potassium (Cozaar) 50 mg DAILY PO 08/01/20 09:00 08/01/20 08:34 Metoclopramide HCl (Reglan Oral Solution) 10 mg TIDACHC PO 07/31/20 16:30 08/01/20 11:18 Multivitamins (Thera M Plus) 1 tab DAILY PO 08/01/20 09:00 08/01/20 08:33 Zolpidem Tartrate (Ambien) 5 mg HS PO 07/31/20 21:00 07/31/20 21:00 Pantoprazole Sodium (Protonix) 40 mg DAILYAC PO 08/01/20 07:30 08/01/20 08:35 Amlodipine Besylate (Norvasc) 5 mg DAILY PO 07/31/20 14:00 08/01/20 08:35 Carvedilol (Coreg) 6.25 mg BIDWMEALS PO 07/31/20 17:00 08/01/20 08:34 Enoxaparin Sodium (Lovenox 40mg Syringe) 40 mg Q24H SQ 07/31/20 21:00 07/31/20 21:00 Imaging: Imaging: Carotid Doppler Study 08/01 pending PE: GEN: NAD HEENT: Atraumatic, PERRL LUNGS: CTAB HEART: RRR ABD: NABS, S/ND, tender along left ribs/LUQ and some to epigastrium EXTREMITY: No edema SKIN: No rashes, no jaundice NEURO/PSYCH: A & O 3 A/P: A/P: Hyperglycemia, HTN, hypokalemia Neck pain, dysphagia, diarrhea, hematochezia H/o GERD, gastroparesis, and IBS CRC screen - 2012 Diverticulosis, hemorrhoids S/p cholecystectomy CAD, IDDM, chronic pain -- Enthusiastically eating lunch when I saw. Does seem to have some abnormal swallowing - struggled a bit swallowing cake w/ some gurgling and deep breathing and belching, then spit out a small bit of cake w/ saliva. ?esophagram - had one in 2018 as above. Agree w/ Reglan susp (?increase to QID) and PPI (increase to BID?) and observe for diarrhea and bleeding. Monitor Hgb and check stool studies if indicated. Will review all w/ Dr. Edwards. AMEENA CASTRO Aug 01, 2020 13:05
--- NOTE | 2020-08-01 13:43 | CONS ---
DATE OF CONSULTATION: 08/01/2020 ATTENDING PHYSICIAN: Hans Farr MD REASON FOR CONSULTATION: The patient was seen at the request of Dr. Cuevas for rehab evaluation. HISTORY OF PRESENT ILLNESS: This is a 74-year-old female known to me in the past. The patient was admitted on 08/01/2020 with uncontrolled blood sugar levels. She had some nausea and her blood sugars were at 500 last night. She was seen the day before after a fall and radiological studies were negative. She complained of right-sided neck pain and chest pain after the fall. The patient is being followed by Dr. Black and an appointment to see an combination saw operator at [facility]. The patient lives alone, had stairs to manage. She does not use an assistive device. She had a cane and walker, but does not use them anymore. Her from abdominal aortic aneurysm complications about 6 months ago. The patient is status post coronary artery bypass graft. Also, subsequent stenting, seizure disorder, diabetes mellitus, insulin-dependent since age 15, gastroparesis, coronary artery disease, hypertension, hyperlipidemia, gastroesophageal reflux disease, chronic back pain, osteoarthritis, chronic renal insufficiency, status post appendectomy, cholecystectomy, coronary artery bypass graft, left knee surgery. ALLERGIES: KNOWN ALLERGIC TO IODINATED CONTRAST MEDIA, PENICILLIN, ATENOLOL, ERYTHROMYCIN BASE, IODINE, LEVOFLOXACIN, AND PREGABALIN. FAMILY HISTORY: Hypertension. PHYSICAL EXAMINATION: On physical examination today revealed a middle-aged female. She is alert, oriented to time, place, person and circumstance and follows commands appropriately, moves all 4 extremities voluntarily where she had 4+/5 grade muscle strength and she had equal perception of touch and pinprick sensation bilaterally. Deep tendon reflexes are 1-2+ and symmetrical. She had minimal tenderness to palpation over upper thoracic paraspinal muscles, more tenderness to palpation over right sternoclavicular joint area. She is independent with bed mobility, transfers, and up walking without any assistive devices just without any loss of balance. No significant tenderness to palpation over thoracic or lumbar spine area. Straight leg raising test is negative bilaterally. ASSESSMENT: A middle-aged female with recent fall and sprain involving upper back and also right sternoclavicular joint and diabetes mellitus, not under control. The patient with known degenerative joint disease, status post left knee surgery, chronic lower back pain, chronic renal insufficiency, gastroesophageal reflux disease, seizure disorder, coronary artery disease, status post coronary artery bypass graft, hypertension, hyperlipidemia, gastroparesis. RECOMMENDATION: To try physical modalities. She was advised to avoid any activity that irritates her shoulder blade area. Home when medically stable with outpatient or home health followup. Dr. Cuevas, I appreciate asking me to participate in the care of this interesting patient. I will be glad to see her for followup on as needed basis. MELANIA LOPEZ MD DR: AISLINN/mandy JOB#: [id number] / [id number]
[2020-08-01 15:00] VITALS: BP 120/60
--- NOTE | 2020-08-01 15:04 | RAD ---
EXAM: BILATERAL DUPLEX CAROTID SONOGRAPHY INDICATION: Neck pain, possible bruit COMPARISON: None TECHNIQUE: Duplex sonography of the cervical portion of both carotid arteries was performed. Real-ramos e grayscale, color flow Doppler, and Doppler spectral waveform analysis is performed. NASCET criteria was used. FINDINGS: Right side: Peak systolic flow velocity of the CCA is 62 cm/sec. Peak systolic flow velocity of the ICA is 76 cm/sec. The ICA/CCA ratio is 1.3. Peak end diastolic flow velocity of the ICA is 19 cm/sec. The peak systolic velocity of the ECA is 98 cm/sec. Left side: Peak systolic flow velocity of the CCA is 77 cm/sec. Peak systolic flow velocity of the ICA is 104 cm/sec. The ICA/CCA ratio is 1.4. Peak end diastolic flow velocity of the ICA is 32 cm/sec. Peak systolic flow velocity of the ECA is 58 cm/sec. There are calcifications in both carotid bifurcations and proximal internal carotid arteries. Both ve rtebral arteries demonstrate antegrade flow. IMPRESSION: Less than 50 percent stenosis of the internal carotid arteries. PQRS Compliance Statement - Stenosis calculations for CT, MR and conventional angiography are based u kade measurement of the distal ICA diameter in accordance with the NASCET methodology. Stenosis calcu lations for carotid ultrasound studies are derived from validated velocity criteria which are known t o correlate with the NASCET methodology. Electronically signed by: Lexi Brandon MD (08/01/2020 3:02 PM) [id number]
[2020-08-01 16:10] LABS: CHOLESTEROL/HDL RATIO 6.6
--- NOTE | 2020-08-01 17:33 | RAD ---
EXAM: XR STERNOCLAVICULAR JOINTS 3+ VIEWS 08/01/2020 2:59 PM CLINICAL INDICATION: Right sternoclavicular joint pain, recent fall COMPARISON: CT chest 07/30/2020 TECHNIQUE: 3 views of the sternoclavicular joints FINDINGS: No fracture of the visualized portion of the clavicles. No obvious dislocation. Median michael rnotomy wires are noted. Lung apices are clear. IMPRESSION: No obvious abnormality of the sternoclavicular joints. Electronically signed by: Lexi Brandon MD (08/01/2020 5:31 PM) [id number]
[2020-08-01 19:00] VITALS: BP 121/55
[2020-08-01] MEDS ORDERED: DICL100G54 TP (19:19)
[2020-08-01] MEDS: DICLOFENAC SODIUM 1% TOPICAL GEL 100GM TUBE. TP SCH (19:50)
[2020-08-01] MEDS: ATORVASTATIN CALCIUM 40 MG TABLET. PO SCH (19:51)
[2020-08-01] MEDS: ENOXAPARIN 40 MG/0.4 ML SYRINGE. SQ SCH (19:54)
[2020-08-01] MEDS: ZOLPIDEM 5 MG TABLET. PO SCH (20:05)
[2020-08-01 22:39] VITALS: BP 103/42
[2020-08-02 03:00] VITALS: BP 136/64
[2020-08-02] MEDS: LEVOTHYROXINE 75 MCG TABLET PO SCH (05:21)
[2020-08-02] MEDS: HYDROcodone/APAP 5/325MG 1 TAB TABLET PO PRN ×2 (05:22→11:33)
[2020-08-02] MEDS: METOCLOPRAMIDE ORAL SOLN 10 MG/10 ML SOLUTION. PO SCH ×2 (06:10→11:33)
[2020-08-02] MEDS: DICLOFENAC SODIUM 1% TOPICAL GEL 100GM TUBE. TP SCH (06:10)
[2020-08-02] MEDS: PANTOPRAZOLE 40 MG TABLET.DR. PO SCH ×2 (06:10→08:29)
[2020-08-02 07:00] VITALS: BP 167/71
[2020-08-02] MEDS: INSULIN LISPRO 300 UNITS/3 ML VIAL. SQ SCH ×2 (08:00→08:37)
[2020-08-02] MEDS: CLOPIDOGREL BISULFATE 75 MG TABLET PO SCH (08:28)
[2020-08-02] MEDS: ASPIRIN CHEWABLE 81 MG TABLET. PO SCH (08:28)
[2020-08-02] MEDS: CYANOCOBALAMIN (VITAMIN B-12) 1,000 MCG TABLET. PO SCH (08:28)
[2020-08-02] MEDS: levETIRAcetam 500 MG TABLET PO SCH (08:28)
[2020-08-02] MEDS: CARVEDILOL 6.25 MG TABLET. PO SCH (08:28)
[2020-08-02] MEDS: MULTIVITAMIN with MINERAL TABLET. PO SCH (08:29)
[2020-08-02] MEDS: ISOSORBIDE MONONITRATE ER 30 MG TAB.ER.24H PO SCH (08:29)
[2020-08-02] MEDS: amLODIPine BESYLATE 5 MG TABLET PO SCH (08:29)
[2020-08-02] MEDS: LOSARTAN POTASSIUM 50 MG TABLET. PO SCH (08:30)
[2020-08-02] MEDS: INSULIN GLARGINE SYRINGE. SQ SCH (08:36)
--- NOTE | 2020-08-02 10:29 | NUR ---
SW following for discharge planning. Spoke with RN and reviewed chart. Pt from home with caregivers. PT/OT recommendation is home with HH. SW met with pt. Pt stated she is not homebound and visits her sister x3 weekly. Pt declined HH on discharge. Pt has [facility] caregivers from the [employer] with her Medicaid HCBS. Pt to discharge home today, 08/02 self-care. No further SW needs at this time.
--- NOTE | 2020-08-02 10:33 | PDOC ---
Date of Service: DATE: 08/02/20 TIME: 10:27 Subjective: Subjective: Eating peanut butter and omari crackers. Says vomited last night - to me does not endorse retching but describes phlegm getting caught in throat and coughing that up. Nausea this morning but no vomiting yet. Says she has to take her levothyroxine, Zofran, Reglan, and Protonix right away in the mornings. I asked if her symptoms were closer to baseline and she said "I don't know what baseline is anymore." Objective: Objective: D/w nurse - pt eats a lot, apparently doesn't mention vomiting to nursing staff. Vital Signs: Vital Signs Date Time Temp Pulse Resp B/P (MAP) Pulse Ox O2 Delivery O2 Flow Rate FiO2 08/02/20 08:30 66 136/64 08/02/20 07:00 98.1 18 96 Room Air 98.1 Labs: Laboratory Tests Test 08/01/20 11:41 08/01/20 16:55 08/01/20 19:59 08/02/20 07:29 Glucose (Fingerstick) 93 mg/dL (70-99) 218 mg/dL (70-99) 127 mg/dL (70-99) 130 mg/dL (70-99) Imaging: Echo 08/02 pending PE: GEN: NAD LUNGS: CTAB HEART: RRR ABD: soft NEURO/PSYCH: A & O 3 A/P: Hyperglycemia/IDDM, HTN, hypokalemia - better H/o GERD, gastroparesis, and IBS w/ chronic/recurrent n/v ?dysphagia -- ?better today Would continue Reglan susp (instead of pills that she has at home), also continue PPI. Justicifation of Admission Dx: Justifications for Admission: Justification of Admission Dx: Yes (chest pain, falls, poss infection) AMEENA CASTRO Aug 02, 2020 10:33
[2020-08-02 11:00] VITALS: BP 136/67
[2020-08-02] MEDS ORDERED: INSU100V8 SQ (11:33)
[2020-08-02] MEDS ORDERED: INSU100V35 SQ (11:33)
[2020-08-02] MEDS ORDERED: CARV6.2511 PO (11:33)
[2020-08-02] MEDS ORDERED: HYDR-2761 PO (11:35)
[2020-08-02] MEDS ORDERED: TRAM-48 PO (11:54)
[2020-08-02] MEDS ORDERED: DICL100G54 TP (11:58)
--- NOTE | 2020-08-02 12:20 | CARD ---
MR#: [id number] Date of Study: 08/02/2020 Ordering Physician: PARIS CARRION, Referring Physician: PARIS CARRION, Tech: Leela Gracia LAURA APPROVED REPORT EXAM: Two-dimensional and M-mode echocardiogram with Doppler and color Doppler. Other Information Quality : Fair INDICATION Cardiac Disease: CAD Chest Pain 2D DIMENSIONS RVDd3.3 (2.9-3.5cm)Left Atrium(2D)3.9 (1.6-4.0cm) IVSd1.2 (0.7-1.1cm)Aortic Root(2D)2.6 (2.0-3.7cm) LVDd4.9 (3.9-5.9cm)LVOT Diameter2.0 (1.8-2.4cm) PWd1.1 (0.7-1.1cm)LVDs2.9 (2.5-4.0cm) FS (%) 30.0 %SV78.0 ml LVEF(%)60.0 (>50%) Aortic Valve AoV Peak Gregory.135.9cm/sAoV VTI26.9cm AO Peak GR.7.4mmHgLVOT Peak Gregory.93.4cm/s AO Mean GR.5mmHgAVA (VMAX)2.07cm2 GAGAN (VTI)2.10cm2 Mitral Valve MV E Rigfmozs73.9cm/sMV DECEL PMPQ444fy MV A Ouksixiu765.8cm/sE/A Ratio0.6 Tricuspid Valve TR P. Sthoexdw160es/sRAP [id number] TR Peak Gr.86whIeTXEQ11vuSm Pulmonary Vein S1 Yaowvsjt01.2cm/sD2 Bxjwaeld47.3cm/s LEFT VENTRICLE The left ventricle is normal size. There is mild concentric left ventricular hypertrophy. The left ve ntricular systolic function is normal and the ejection fraction is within normal range. The Ejection Fraction is 55-60%. The basal to mid inferior wall is moderately hypokinetic. The apical septum and a pex are akinetic. Transmitral Doppler flow pattern is Grade I-abnormal relaxation pattern. RIGHT VENTRICLE The right ventricle is normal size. The right ventricular systolic function is normal. ATRIA The left atrium size is normal. The right atrium size is normal. The interatrial septum is intact wit h no evidence for an atrial septal defect or patent foramen ovale as noted on 2-D or Doppler imaging. AORTIC VALVE The aortic valve is calcified but opens well. Not well visualized. Doppler and Color Flow revealed no significant aortic regurgitation. There is no significant aortic valvular stenosis. MITRAL VALVE The mitral valve is mildly thickened. Posterior mitral annular calcification is moderate. There is no evidence of mitral valve prolapse. There is no mitral valve stenosis. Doppler and Color-flow reveale d trace to mild mitral regurgitation. TRICUSPID VALVE The tricuspid valve is normal in structure and function. Doppler and Color Flow revealed trace to mil d tricuspid regurgitation. The PA pressure was estimated at 28 mmHg. There is no tricuspid valve sten osis. PULMONIC VALVE The pulmonic valve is not well visualized. Doppler and Color Flow revealed mild pulmonic valvular reg urgitation. There is no pulmonic valvular stenosis. GREAT VESSELS The aortic root is normal in size. The ascending aorta is normal in size. The IVC is normal in size a nd collapses >50% with inspiration. PERICARDIAL EFFUSION There is no evidence of significant pericardial effusion. Critical Notification Critical Value: No <Conclusion> The left ventricular systolic function is normal and the ejection fraction is within normal range. Th e Ejection Fraction is 55-60%. The basal to mid inferior wall is moderately hypokinetic. The apical septum and apex are akinetic. Technically very difficult study Signed by : Antione Allen, Electronically Approved : 08/02/2020 12:20:05
--- NOTE | 2020-08-02 12:42 | NUR ---
PATIENT INFORMED OF DISCHARGE PLANS AND OFFERED A RIDE. PT STATED SHE COULD HAVE HER NEIGHBOR PICK HER UP AND ASKED WHAT TIME. RN INFORMED PT 1230 WAS APPROPRIATE. PT IV AND TELE REMOVED. RN WENT OVER DISCHARGE INSTRUCTIONS AND TOLD PT TO HAVE RIDE CALL WHEN HE ARRIVED AT ER FOR PAINT PREP TECHNICIAN OR TO COME TO ROOM TO GET HER. PT BECAME UPSET, COMING OUT INTO THE [place] TO THE NURSE STATION YELLING "HE WON'T CALL AND HE WON'T WAIT FOR ME! HE WON'T COME UP HERE! IF I AM NOT DOWN THERE WAITING AT 1230, HE WILL LEAVE ME HERE!" EARTH BORING MACHINE OPERATOR INSTRUCTED TO TAKE PT DOWN TO ER IN W/C AND IF HER RIDE WAS NOT THERE TO INFORM SECURITY SO THAT AID COULD RETURN TO UNIT THERE IS ONLY ONE AID HERE. AT THIS TIME, PT BECAME IRATE YELLING THAT HE WAS GOING TO COME TO THE ROOM TO GET HERE AND THAT IT WAS THE NURSES' FAULT IF SHE MISSED HER RIDE. PT ATTEMPTED TO HIT EARTH BORING MACHINE OPERATOR. PT LEFT IN ER WAITING ROOM IN W/C. PT ALSO HAD SECURITY CALL UNIT TO ASK IF RIDE WAS UP HERE. HE WAS NOT.
--- NOTE | 2020-08-02 13:14 | PDOC ---
CARDIO Progress Notes Date and Time Date of Service 08/02/20 Time of Evaluation 1210 Subjective Subjective: No Palpitations, No Dizziness, Other (left neck, central chest tenderness upon palpitation) Vitals Vitals Vital Signs Date Time Temp Pulse Resp B/P (MAP) Pulse Ox O2 Delivery O2 Flow Rate FiO2 08/02/20 11:33 96 Room Air 08/02/20 11:00 98.6 76 18 136/67 (90) 98.6 Weight Weight [ ] Input and Output Intake and Output Intake and Output 08/02/20 07:00 Intake Total 880 ml Balance 880 ml Intake Oral 880 ml # Voids 3 Laboratory Labs Laboratory Tests Test 08/01/20 16:55 08/01/20 19:59 08/02/20 07:29 Glucose (Fingerstick) 218 mg/dL (70-99) 127 mg/dL (70-99) 130 mg/dL (70-99) Physical Exam HEENT: Neck Supple W Full Motion Chest: Symmetric LUNGS: Clear to Auscultation Heart: RRR Abdomen: Soft N/T Extremities: No Edema Neurology: alert, oriented, follow commands Assessment Assessment 1. Diabetes, II with hyperglycemia 2. Chest pain, atypical. Trop negative. 3. Nausea/vomiting with h/o gastroparesis 4. CAD; past CABG and PCI/stents with known diffuse disease. 5. Accelerated hypertension; improved 6. Chronic systolic CHF with h/o cardiomyopathy; Echo with preserved LV systolic function. Basal to mid inferior wall is moderately hypokinetic. The apical septum and apex are akinetic. 7. Hyperlipidemia 8. Seizure disorder 9. Recent mechanical fall down cement stairs. CT head, thoracic and lumbar spine without acute findings. Recommendations Secondary prevention measures including ASA/Plavix, statin, imdur, and BB therapy. Glucose control Outpatient ischemic evaluation Follow up with Dr. Allen as scheduled. Justicifation of Admission Dx: Justifications for Admission: Justification of Admission Dx: Yes (chest pain, falls, poss infection) PARIS CARRION APRN Aug 02, 2020 13:14
--- NOTE | 2020-08-02 13:45 | PDOC3 ---
Discharge Summary Visit Information Date of Admission: Jul 31, 2020 Date of Discharge: Aug 02, 2020 Final Diagnosis Hyperglycemia uncontrolled Hypertensive emergency MIKE due to vasomotor nephropathy Acute electrolyte derangementhyponatremia, hypokalemia chest pain, angina, accelerated htn dm1, with obesity, BMI 32 consult PT and OT and rehab CV consult GI consult for gastroparesis, she says she cannot keep food down, Problems Medical Problems: (1) Accelerated hypertension Status: Acute (2) Hyperglycemia Status: Acute (3) Hypokalemia Status: Acute Brief Hospital Course Allergies Allergies Coded Allergies Type Severity Reaction Last Updated Verified Iodinated Contrast Media Allergy Severe Anaphylaxis 05/27/18 Yes Penicillins Allergy Intermediate 05/27/18 Yes atenolol Allergy Intermediate TAKES METOPROLOL AT HOME 05/27/18 Yes erythromycin base Allergy Intermediate 05/27/18 Yes iodine Allergy Intermediate 05/27/18 Yes levofloxacin Allergy Intermediate 05/27/18 Yes pregabalin Allergy Intermediate 05/27/16 Yes Vital Signs Vital Signs Date Time Temp Pulse Resp B/P (MAP) Pulse Ox O2 Delivery O2 Flow Rate FiO2 08/02/20 11:33 96 Room Air 08/02/20 11:00 98.6 76 18 136/67 (90) 98.6 Lab Results Laboratory Tests Test 07/31/20 16:52 07/31/20 21:14 07/31/20 22:18 08/01/20 07:39 Glucose (Fingerstick) 285 mg/dL (70-99) 101 mg/dL (70-99) 139 mg/dL (70-99) 233 mg/dL (70-99) Test 08/01/20 11:41 08/01/20 12:35 08/01/20 16:55 08/01/20 19:59 Glucose (Fingerstick) 93 mg/dL (70-99) 218 mg/dL (70-99) 127 mg/dL (70-99) White Blood Count 5.6 x10^3/uL (4.0-11.0) Red Blood Count 4.21 x10^6/uL (3.50-5.40) Hemoglobin 13.3 g/dL (12.0-15.5) Hematocrit 39.3 % (36.0-47.0) Mean Corpuscular Volume 93 fL (79-100) Mean Corpuscular Hemoglobin 32 pg (25-35) Mean Corpuscular Hemoglobin Concent 34 g/dL (31-37) Red Cell Distribution Width 13.2 % (11.5-14.5) Platelet Count 309 x10^3/uL (140-400) Neutrophils (%) (Auto) 52 % (31-73) Lymphocytes (%) (Auto) 35 % (24-48) Monocytes (%) (Auto) 11 % (0-9) Eosinophils (%) (Auto) 1 % (0-3) Basophils (%) (Auto) 1 % (0-3) Neutrophils # (Auto) 2.9 x10^3/uL (1.8-7.7) Lymphocytes # (Auto) 2.0 x10^3/uL (1.0-4.8) Monocytes # (Auto) 0.6 x10^3/uL (0.0-1.1) Eosinophils # (Auto) 0.0 x10^3/uL (0.0-0.7) Basophils # (Auto) 0.0 x10^3/uL (0.0-0.2) Sodium Level 140 mmol/L (136-145) Potassium Level 3.5 mmol/L (3.5-5.1) Chloride Level 105 mmol/L (98-107) Carbon Dioxide Level 26 mmol/L (21-32) Anion Gap 9 (6-14) Blood Urea Nitrogen 7 mg/dL (7-20) Creatinine 0.7 mg/dL (0.6-1.0) Estimated GFR (Cockcroft-Gault) 81.8 Glucose Level 103 mg/dL (70-99) Calcium Level 7.3 mg/dL (8.5-10.1) Phosphorus Level 1.3 mg/dL (2.6-4.7) Magnesium Level 1.8 mg/dL (1.8-2.4) Troponin I Quantitative < 0.017 ng/mL (0.000-0.055) Triglycerides Level 285 mg/dL (0-150) Cholesterol Level 252 mg/dL (0-200) LDL Cholesterol, Calculated 157 mg/dL (0-100) VLDL Cholesterol, Calculated 57 mg/dL (0-40) Non-HDL Cholesterol Calculated 214 mg/dL (0-129) HDL Cholesterol 38 mg/dL (40-60) Cholesterol/HDL Ratio 6.6 Test 08/02/20 07:29 Glucose (Fingerstick) 130 mg/dL (70-99) Laboratory Tests Test 08/01/20 16:55 08/01/20 19:59 08/02/20 07:29 Glucose (Fingerstick) 218 mg/dL (70-99) 127 mg/dL (70-99) 130 mg/dL (70-99) Brief Hospital Course Ms. Edwards is a 74 old female, admit with neck pain, chest pain, weakness, nausea and vomiting, mult complaints due to mult acute on chronic med problems she was imrpoved at 2 days, almost refused to leave withoutj pain meds, large discussion with her aboutj meds. I tried to Call her Psychiatrist at , Katie Rea, D.O. and Quynh says she doesnt know that doctor at all, and gets her psych meds form [facility],. Discharge Information Condition at Discharge: Improved Follow Up: Weeks Disposition/Orders: D/C to Home Scheduled Aspirin (Aspirin) 81 Mg Tab.chew, 1 TAB PO DAILY for unknown, #30 Ref 3 (Reported) Entered as Reported by: BENTON REYNA on 12/08/18 1121 Last Action: Continued on 07/31/20 1325 by SIDDHARTH VILLANUEVA MD Atorvastatin Calcium (Atorvastatin Calcium) 40 Mg Tablet, 40 MG PO QHS for hyperlipidemia, #30 Prescribed by: DENICE IZAGUIRRE on 10/18/18 1035 Last Action: Continued on 07/31/20 1325 by SIDDHARTH VILLANUVEA MD Carvedilol (Carvedilol ) 6.25 Mg Tablet, 6.25 MG PO BIDWMEALS for hypertension, cardiac, #60 Ref 1 Prescribed by: OLIVIER ARITA on 08/02/20 1133 Clopidogrel Bisulfate (Clopidogrel) 75 Mg Tablet, 75 MG PO DAILY for TO PREVENT BLOOD CLOTS, #30 Ref 0 (Reported) Entered as Reported by: JASVIR RODRÍGUEZ on 01/29/16 2141 Last Action: Continued on 07/31/20 1325 by SIDDHARTH VILLANUEVA MD Cyanocobalamin (Vitamin B-12) (Vitamin B-12) 1,000 Mcg Tablet, 1,000 MCG PO DAILY for 30 Days, #3 Prescribed by: DENICE IZAGUIRRE on 11/14/17 1306 Last Action: Continued on 07/31/20 1325 by SIDDHARTH VILLANUEVA MD Diclofenac Sodium (Voltaren) 100 Gm Gel..gram., 1 GM TP QID for pain for 30 Days, #100 Ref 0 (Reported) apply to affected area(s) Entered as Reported by: CAMILA ESPINOZA on 08/01/201918 Last Taken: Unknown Dose on 07/30/20 Last Action: Continued on 08/01/201919 by CAMILA ESPINOZA Insulin Glargine,Hum.rec.anlog (Lantus) 100 Unit/1 Ml Vial, 30 UNIT SQ BID for dm2 for 30 Days Prescribed by: OLIVIER ARITA on 08/02/20 1133 Insulin Lispro (Admelog) 100 Unit/1 Ml Vial, 20 UNITS SQ TIDWMEALS for diabetes for 30 Days Prescribed by: OLIVIER ARITA on 08/02/20 1133 Isosorbide Mononitrate (Isosorbide Mononitrate Er) 30 Mg Tab.er.24h, 30 MG PO DAILY for CAD, #30 Prescribed by: DENICE IZAGUIRRE on 10/18/18 1035 Last Action: Continued on 07/31/20 1325 by SIDDHARTH VILLANUEVA MD Levetiracetam (Keppra) 500 Mg Tablet, 1,000 MG PO BID for 30 Days, #120 Prescribed by: DENICE IZAGUIRRE on 06/25/17 1057 Last Action: Continued on 07/31/20 1325 by SIDDHARTH VILLANUEVA MD Levothyroxine Sodium (Synthroid) 75 Mcg Tablet, 75 MCG PO DAILY07 for 30 Days, #30 Prescribed by: DENICE IZAGUIRRE on 04/02/18 1042 Last Action: Continued on 07/31/20 1325 by SIDDHARTH VILLANUEVA MD Losartan Potassium (Cozaar ) 50 Mg Tablet, 50 MG PO DAILY for hypertension, #30 Prescribed by: DENICE IZAGUIRRE on 10/18/18 1035 Last Action: Continued on 07/31/20 1325 by SIDDHARTH VILLANUEVA MD Metoclopramide Hcl (Metoclopramide Hcl) 10 Mg/10 Ml Solution, 10 MG PO TIDACHC for 30 Days Prescribed by: DENICE IZAGUIRRE on 11/14/17 1306 Last Action: Continued on 07/31/20 1325 by SIDDHARTH VILLANUEVA MD Multivits,Ca,Minerals/Iron/Fa (Thera-M Tablet) 1 Each Tablet, 1 TAB PO DAILY for 30 Days, #30 Prescribed by: DENICE IZAGUIRRE on 04/02/18 1042 Last Action: Continued on 07/31/20 1325 by SIDDHARTH VILLANUEVA MD Ondansetron (Ondansetron Odt) 4 Mg Tab.rapdis, 4 MG PO TIDAC, #90 Prescribed by: DENICE IZAGUIRRE on 05/30/16 0841 Last Action: Reviewed on 07/31/20 1309 by PHYLLIS CASTREJON Zolpidem Tartrate (Ambien) 5 Mg Tablet, 5 MG PO HS, Ref 0 (Reported) Entered as Reported by: JASVIR RODRÍGUEZ on 01/29/162140 Last Action: Continued on 07/31/20 1325 by SIDDHARTH VILLANUEVA MD [Pantoprazole] 40 MG TABLET.DR, 40 MG PO DAILYAC for gerd, #30 Prescribed by: DENICE IZAGUIRRE on 12/09/18 1024 Last Action: Converted on 07/31/20 1325 by SIDDHARTH VILLANUEVA MD [Pioglitazone Hcl] 15 MG TABLET, 45 MG PO DAILY, #30 Prescribed by: DENICE IZAGUIRRE on 11/21/16 0906 Last Action: Reviewed on 07/31/20 1309 by PHYLLIS CASTREJON Scheduled PRN Diclofenac Sodium (Voltaren) 100 Gm Gel..gram., 1 GM TP BID PRN for PAIN for 30 Days, #1 Ref 0 apply to affected area(s) Prescribed by: OLIVIER ARITA on 08/02/20 1158 Dicyclomine Hcl (Dicyclomine Hcl) 10 Mg Capsule, 10 MG PO PRN Q6HRS PRN for abdominal cramps for 30 Days, #60 Prescribed by: DENICE IZAGUIRRE on 04/02/18 1042 Last Action: Continued on 07/31/20 1325 by SIDDHARTH VILLANUEVA MD Nitroglycerin (Nitrostat) 0.4 Mg Tab.subl, 0.4 MG SL PRN Q5MIN PRN for CHEST PAIN for 30 Days Prescribed by: DENICE IZAGUIRRE on 11/14/17 1306 Last Action: Continued on 07/31/20 1325 by SIDDHARTH VILLANUEVA MD Tramadol Hcl (Ultram) 50 Mg Tablet, 1 TAB PO PRN BID PRN for pain MDD 2 Tablet(s), #22 Ref 0 Prescribed by: OLIVIER ARITA on 08/02/20 1155 Discontinued Medications Fentanyl (FENTANYL 25mcg/hr) 1 Each Patch.td72, 1 PATCH TD Q3DAYS, #10 Prescribed by: DENICE IZAGUIRRE on 05/30/16 0841 Last Action: HELD on 07/31/20 1325 by SIDDHARTH VILLANUEVA MD Lorazepam (Lorazepam) 1 Mg Tablet, 1 MG PO PRN TID PRN for ANXIETY / AGITATION, #30 Prescribed by: DENICE IZAGUIRRE on 11/21/16 0906 Last Action: Continued on 07/31/20 1325 by SIDDHARTH VILLANUEVA MD Metoprolol Succinate (Metoprolol Succinate) 50 Mg Tab.er.24h, 50 MG PO DAILY for 30 Days, #30 Prescribed by: DENICE IZAGUIRRE on 04/02/18 1042 Last Action: HELD on 07/31/20 1325 by SIDDHARTH VILLANUEVA MD Oxycodone Hcl (Oxycodone Hcl Immed.release) 10 Mg Tablet, 10 MG PO PRN Q6HRS PRN for PAIN, #12 Ref 0 Prescribed by: Shelby Franco APRN on 08/23/18 1252 Last Action: Reviewed on 07/31/20 1309 by PHYLLIS CASTREJON Patient Instructions Patient Instructions > 30 min face to face full med review of pain meds and 90 lorazepam monthly I declined the hydrocodone she requested, will try ultram, needs f/u with pain med clinic, Dr. Black to See. Justicifation of Admission Dx: Justifications for Admission: Justification of Admission Dx: Yes (chest pain, falls, poss infection) OLIVIER ARITA MD Aug 02, 2020 13:45
== END 2020-08-02 12:30 | disposition home or self-care (01) | DRG 637 ==
LOC: ER 09:22 → 5 NORTH 11:18
PROVIDERS: ADMIT Internal Medicine; ATTEND Internal Medicine
DX: E11.65 Type 2 diabetes mellitus with hyperglycemia (principal); N17.0 Acute kidney failure with tubular necrosis; E87.1 Hypo-osmolality and hyponatremia; I16.1 Hypertensive emergency; I50.22 Chronic systolic (congestive) heart failure; I42.9 Cardiomyopathy, unspecified; I13.0 Hypertensive heart and chronic kidney disease with heart failure and stage 1 through stage 4 chronic kidney disease, or unspecified chronic kidney disease; E11.43 Type 2 diabetes mellitus with diabetic autonomic (poly)neuropathy; I25.119 Atherosclerotic heart disease of native coronary artery with unspecified angina pectoris; K31.84 Gastroparesis; G89.29 Other chronic pain; Z96.659 Presence of unspecified artificial knee joint; E11.40 Type 2 diabetes mellitus with diabetic neuropathy, unspecified; E11.22 Type 2 diabetes mellitus with diabetic chronic kidney disease; N18.9 Chronic kidney disease, unspecified; K64.9 Unspecified hemorrhoids; K57.90 Diverticulosis of intestine, part unspecified, without perforation or abscess without bleeding; K44.9 Diaphragmatic hernia without obstruction or gangrene; K21.9 Gastro-esophageal reflux disease without esophagitis; E66.9 Obesity, unspecified; E78.5 Hyperlipidemia, unspecified; E87.6 Hypokalemia; R13.10 Dysphagia, unspecified; M54.2 Cervicalgia; M54.5 Low back pain; K58.9 Irritable bowel syndrome, unspecified; G40.909 Epilepsy, unspecified, not intractable, without status epilepticus; Z79.4 Long term (current) use of insulin; Z95.1 Presence of aortocoronary bypass graft; Z88.0 Allergy status to penicillin; Z88.8 Allergy status to other drugs, medicaments and biological substances; Z88.1 Allergy status to other antibiotic agents; Z91.041 Radiographic dye allergy status; Z90.49 Acquired absence of other specified parts of digestive tract; Z90.710 Acquired absence of both cervix and uterus; Z82.49 Family history of ischemic heart disease and other diseases of the circulatory system; Z91.81 History of falling; Z87.442 Personal history of urinary calculi; Z68.32 Body mass index [BMI] 32.0-32.9, adult
CPT/HCPCS: 36415; 71130; 80048; 80053; 80061; 81001; 82962; 83690; 83735; 84100; 84484; 85025; 93005; 93306; 93880; J1650; J1815; J2270; J2405; J7030; 97110-GP; 97116-GP; 97530-GO; 97535-GO; G0378; J8597

== ENCOUNTER 2020-08-24 10:49 | Emergency (ER) | payer MEDICARE, OTHER ==
[~2020-08-24] VITALS: Ht 147.3 cm; Wt 69.5 kg
[~2020-08-24 10:49] MED LIST changes: +CARV6.2511 PO; +DICL100G54 TP; +HYDR-2761 PO; +INSU100V35 SQ; -MORPHINE SULFATE 4 MG/ML VIAL. IV PRN
--- NOTE | 2020-08-24 11:42 | RAD ---
AP, lateral, and oblique views of the right wrist were obtained. Indication: Wrist pain after fall Comparison: none. Findings: No fracture, dislocation, significant degenerative changes, or soft tissue swelling is visualized. T he carpal bones are well aligned. Impression: 1. Negative exam of the right wrist. Electronically signed by: Clint Carcamo MD (08/24/2020 11:39 AM) [id number]
--- NOTE | 2020-08-24 12:27 | RAD ---
CT HEAD AND C-SPINE WO Date: 08/24/2020 11:07 AM Clinical Indication: Reason: fall head and neck pain / Spl. Instructions: / History: Comparison: 07/27/2020. Technique: 5 mm axial tomographic images were obtained of the head without contrast. These were view ed on brain and bone windows. Noncontrast CT of the cervical spine was performed. Sagittal and mccoy l reformats were performed and evaluated. One or more of the following dose reduction techniques were utilized: Automated exposure control (AEC), Adjustment of mA and/or kV according to patient size, Us e of iterative reconstruction technique such as ASiR, CT scan done according to ALARA and image gentl y/image wisely HEAD FINDINGS: Mild generalized cerebral and cerebellar volume loss. Moderate nonspecific periventricular hypoattenu ation, most commonly seen with chronic small vessel ischemic disease. No intra- or extra-axial mass or fluid collection. No acute hemorrhage. The ventricles are normal in size, shape, and morphology. The cano-white matter junction is normal. The basilar cisterns are paten t. The visualized paranasal sinuses are normal. The visualized portions of the orbits and globes are no rmal. The mastoid air cells are clear. No aggressive osseous lesion or fracture. CERVICAL SPINE FINDINGS: The cervical spine is normally aligned. No acute fracture. No aggressive lytic or blastic osseous les ions. Moderate multilevel degenerative disc space height loss. Multilevel mild spinal canal stenosis second jacky to disc protrusions and marginal osteophytes. Multilevel mild and moderate neuroforaminal narrowi ng secondary to uncovertebral arthrosis. Multilevel moderate to severe facet arthrosis. The thyroid gland is normal. No cervical lymphadenopathy. Bilateral carotid atherosclerosis. The visu alized aerodigestive tract is normal. The visualized portions of the lungs are clear. IMPRESSION: 1. No acute intracranial process. 2. No acute cervical spine fracture. Electronically signed by: Juan José Farrell MD (08/24/2020 12:24 PM) [id number]
[2020-08-24 12:43] VITALS: BP 172/77
--- NOTE | 2020-08-24 13:02 | RAD ---
Examination: 1. Bilateral knees 4 views each 2. Bilateral ankles 4 views each INDICATION: Pain COMPARISON: Left knee x-rays of 09/28/2019 FINDINGS: Right knee shows anatomic alignment with no acute fracture or aggressive appearing osseous lesions. S oft tissues show lucent centered ossific mass in the lateral posterior right knee soft tissues measur ing 1.3 cm. No joint effusion. Left knee shows left total arthroplasty with good alignment and no findings suggesting an acute fract ure or aggressive bony lesion. There is slight medial tilt of the patella. No other soft tissue findi ngs in the left knee are appreciated. Left ankle shows no fracture or dislocation. Right ankle shows subtalar arthrodesis with intramedullary bruno and interlocking screws in the mid tib ial shaft and in the calcaneus. In addition, multiple surgical nav are present in the hindfoot of the right foot. Soft tissues are otherwise unremarkable. IMPRESSION: 1. Essentially negative right knee x-rays and left knee x-rays showing arthroplasty with no acute oss eous abnormality. 2. The left ankle is unremarkable while the right ankle shows surgical changes of a subtalar arthrode sis without acute complications shown. Electronically signed by: Chaka Lima MD (08/24/2020 12:59 PM) [id number]
--- NOTE | 2020-08-24 13:33 | PHYS DOC ---
Past Medical History Past Medical History: CAD, Seizure, Other Additional Past Medical Histor: Gastroparesis, CHRONIC PAIN, COMPRESSION FX Past Surgical History: Other Additional Past Surgical Histo: BACK SURGERY, "[place] IN RIGHT KNEE" Smoking Status: Never Smoker Alcohol Use: None Drug Use: None General Adult EDM: Chief Complaint: MECHANICAL FALL HPI: HPI: Patient is a 74 year old female who presents to the ED today complaining of 9 out of 10 bilateral ankle pain, bilateral knee pain, right wrist pain, this began a few minutes ago after she fell. Patient denies any loss of consciousness. She initially denied hitting her head on the ground then later stated she hit her neck on a rock. Patient states the pain is worse on touching the affected areas. Denies anything relieving the pain. Review of Systems: Review of Systems: Constitutional: Denies fever or chills. [] Eyes: Denies change in visual acuity. [] HENT: Denies nasal congestion or sore throat. [] Respiratory: Denies cough or shortness of breath. [] Cardiovascular: Denies chest pain or edema. [] GI: Denies abdominal pain, nausea, vomiting, bloody stools or diarrhea. [] : Denies dysuria. [] Musculoskeletal: Reports neck pain, bilateral knee and ankle pain, right wrist pain Integument: Denies rash. [] Neurologic: Denies headache, focal weakness or sensory changes. [] Psychiatric: Denies depression or anxiety. [] Heart Score: Risk Factors: Risk Factors: DM, Current or recent (<one month) smoker, HTN, HLP, family history of CAD, obesity. Risk Scores: Score 0 - 3: 2.5% MACE over next 6 weeks - Discharge Home Score 4 - 6: 20.3% MACE over next 6 weeks - Admit for Clinical Observation Score 7 - 10: 72.7% MACE over next 6 weeks - Early Invasive Strategies Allergies: Allergies: Allergies Coded Allergies Type Severity Reaction Last Updated Verified Iodinated Contrast Media Allergy Severe Anaphylaxis 05/27/18 Yes Penicillins Allergy Intermediate 05/27/18 Yes atenolol Allergy Intermediate TAKES METOPROLOL AT HOME 05/27/18 Yes erythromycin base Allergy Intermediate 05/27/18 Yes iodine Allergy Intermediate 05/27/18 Yes levofloxacin Allergy Intermediate 05/27/18 Yes pregabalin Allergy Intermediate 05/27/16 Yes Physical Exam: PE: Constitutional: Well developed, well nourished, no acute distress, non-toxic appearance. [] HENT: Normocephalic, atraumatic, bilateral external ears normal, oropharynx moist, no oral exudates, nose normal. [] Eyes: PERRLA, EOMI, conjunctiva normal, no discharge. [] Neck: Normal range of motion, no tenderness, supple, no stridor. [] Cardiovascular:Heart rate regular rhythm, no murmur [] Lungs & Thorax: Bilateral breath sounds clear to auscultation [] Abdomen: Bowel sounds normal, soft, no tenderness, no masses, no pulsatile masses. [] Skin: Warm, dry, no erythema, no rash. [] Back: No tenderness, no CVA tenderness. [] Extremities: No tenderness, no cyanosis, no clubbing, ROM intact, no edema. [] Neurologic: Alert and oriented X 3, normal motor function, normal sensory function, no focal deficits noted. [] Psychologic: Affect normal, judgement normal, mood normal. [] Current Patient Data: Vital Signs: Vital Signs Date Time Temp Pulse Resp B/P (MAP) Pulse Ox O2 Delivery O2 Flow Rate FiO2 08/24/20 11:03 98.1 77 16 168/78 (108) 98 Room Air 98.1 EKG: EKG: [] Radiology/Procedures: Radiology/Procedures: []PROCEDURE: WRIST 3V RIGHT AP, lateral, and oblique views of the right wrist were obtained. Indication: Wrist pain after fall Comparison: none. Findings: No fracture, dislocation, significant degenerative changes, or soft tissue swelling is visualized. The carpal bones are well aligned. Impression: 1. Negative exam of the right wrist. Electronically signed by: Clint Carcamo MD (08/24/2020 11:39 AM) [id number] DICTATED and SIGNED BY: CLINT CARCAMO MD DATE: 08/24/20 [id number] 0 PROCEDURE: KNEE BILAT 4V Examination: 1. Bilateral knees 4 views each 2. Bilateral ankles 4 views each INDICATION: Pain COMPARISON: Left knee x-rays of 09/28/2019 FINDINGS: Right knee shows anatomic alignment with no acute fracture or aggressive appearing osseous lesions. Soft tissues show lucent centered ossific mass in the lateral posterior right knee soft tissues measuring 1.3 cm. No joint effusion. Left knee shows left total arthroplasty with good alignment and no findings suggesting an acute fracture or aggressive bony lesion. There is slight medial tilt of the patella. No other soft tissue findings in the left knee are appre ciated. Left ankle shows no fracture or dislocation. Right ankle shows subtalar arthrodesis with intramedullary [place] and interlocking screws in the mid tibial shaft and in the calcaneus. In addition, multiple surgical nav are present in the hindfoot of the right foot. Soft tissues are otherwise unremarkable. IMPRESSION: 1. Essentially negative right knee x-rays and left knee x-rays showing arthroplasty with no acute osseous abnormality. 2. The left ankle is unremarkable while the right ankle shows surgical changes of a subtalar arthrodesis without acute complications shown. Electronically signed by: Kacey Lima MD (08/24/2020 12:59 PM) [id number] DICTATED and SIGNED BY: KACEY LIMA MD DATE: 08/24/20 [id number] 0 PROCEDURE: CT HEAD AND CERVICAL SPINE WO CT HEAD AND C-SPINE WO Date: 08/24/2020 11:07 AM Clinical Indication: Reason: fall head and neck pain / Spl. Instructions: / History: Comparison: 07/27/2020. Technique: 5 mm axial tomographic images were obtained of the head without contrast. These were viewed on brain and bone windows. Noncontrast CT of the cervical spine was performed. Sagittal and coronal reformats were performed and evaluated. One or more of the following dose reduction techniques were utilized: Automated exposure control (AEC), Adjustment of mA and/or kV according to patient size, Use of iterative reconstruction technique such as ASiR, CT scan done according to ALARA and image gently/image wisely HEAD FINDINGS: Mild generalized cerebral and cerebellar volume loss. Moderate nonspecific periventricular hypoattenuation, most commonly seen with chronic small vessel ischemic disease. No intra- or extra-axial mass or fluid collection. No acute hemorrhage. The adeola tricles are normal in size, shape, and morphology. The cano-white matter junction is normal. The basilar cisterns are patent. The visualized paranasal sinuses are normal. The visualized portions of the orbits and globes are normal. The mastoid air cells are clear. No aggressive osseous lesion or fracture. CERVICAL SPINE FINDINGS: The cervical spine is normally aligned. No acute fracture. No aggressive lytic or blastic osseous lesions. Moderate multilevel degenerative disc space height loss. Multilevel mild spinal canal stenosis secondary to disc protrusions and marginal osteophytes. Multilevel mild and moderate neuroforaminal narrowing secondary to uncovertebral arthrosis. Multilevel moderate to severe facet arthrosis. The thyroid gland is normal. No cervical lymphadenopathy. Bilateral carotid atherosclerosis. The visualized aerodigestive tract is normal. The visualized portions of the lungs are clear. IMPRESSION: 1. No acute intracranial process. 2. No acute cervical spine fracture. Electronically signed by: Justo Farrell MD (08/24/2020 12:24 PM) [id number] DICTATED and SIGNED BY: JUSTO FARRELL MD DATE: 08/24/20 [id number] 0 Course & Med Decision Making: Course & Med Decision Making Pertinent Labs and Imaging studies reviewed. (See chart for details) This is a 74-year-old female patient presented to the ED today with bilateral knee pain, bilateral ankle pain, right wrist pain, status post falling. She is also complaining of hitting her right neck on a rock. Physical exam is benign. CT of the head, cervical spine, x-rays of bilateral knee, bilateral ankle, right wrist are negative. Discharge to home. Follow-up with PCP in 1 week Dragon Disclaimer: Dragclarissa Disclaimer: This electronic medical record was generated, in whole or in part, using a voice recognition dictation system. Departure Departure Impression: Primary Impression: Fall from standing Qualified Codes: W19.XXXA - Unspecified fall, initial encounter Additional Impressions: Cervical strain Qualified Codes: S16.1XXA - Strain of muscle, fascia and tendon at neck level, initial encounter Right wrist sprain Qualified Codes: S63.501A - Unspecified sprain of right wrist, initial encounter Contusion of knee, left Qualified Codes: S80.02XA - Contusion of left knee, initial encounter Contusion of knee, right Qualified Codes: S80.01XA - Contusion of right knee, initial encounter Right ankle sprain Qualified Codes: S93.401A - Sprain of unspecified ligament of right ankle, initial encounter Left ankle sprain Qualified Codes: S93.402A - Sprain of unspecified ligament of left ankle, initial encounter Disposition: 01 DC HOME SELF CARE/HOMELESS Condition: STABLE Referrals: DENICE BEJARANO MD (PCP) follow up with your doctor in one week Patient Instructions: Contusion, Fall Prevention and Home Safety Additional Instructions: You were evaluated in the emergency room, your CT scan of your head and neck were negative for any acute findings, your x-rays of the right wrist bilateral knee and bilateral ankles which are negative. Follow-up with your doctor in 1 week. You can take [id number] pain relievers as needed LO VELA APRN Aug 24, 2020 13:33
== END 2020-08-24 13:50 | disposition home or self-care (01) ==
LOC: ER 10:49
DX: S16.1XXA Strain of muscle, fascia and tendon at neck level, initial encounter (principal); S63.591A Other specified sprain of right wrist, initial encounter; S93.491A Sprain of other ligament of right ankle, initial encounter; S93.492A Sprain of other ligament of left ankle, initial encounter; S80.01XA Contusion of right knee, initial encounter; S80.02XA Contusion of left knee, initial encounter; I25.10 Atherosclerotic heart disease of native coronary artery without angina pectoris; G89.29 Other chronic pain; Z98.890 Other specified postprocedural states; Z88.0 Allergy status to penicillin; Z91.040 Latex allergy status; Z88.1 Allergy status to other antibiotic agents; Z88.8 Allergy status to other drugs, medicaments and biological substances; W18.39XA Other fall on same level, initial encounter; Y93.9 Activity, unspecified; Y92.89 Other specified places as the place of occurrence of the external cause; Y99.8 Other external cause status
CPT/HCPCS: 70450; 72125; 73110; 73564; 73610; 99285

== ENCOUNTER 2020-08-28 18:00 | Emergency (ER) | payer MEDICARE, OTHER ==
[~2020-08-28] VITALS: Ht 147.3 cm; Wt 69.5 kg
[~2020-08-28 18:00] MED LIST changes: -ISOS30TA4 PO; +ISOS30TA68 PO; -MULT1TAB90 PO; +MULT1TAB92 PO
[2020-08-28 18:46] VITALS: BP 185/110
--- NOTE | 2020-08-28 19:08 | PHYS DOC ---
Past Medical History Past Medical History: CAD, Diabetes-Type II, Seizure, Other Additional Past Medical Histor: Gastroparesis, CHRONIC PAIN, COMPRESSION FX (LO VELA APRN) Past Surgical History: Other Additional Past Surgical Histo: BACK SURGERY, "[place] IN RIGHT KNEE" (LO VELA APRN) Smoking Status: Never Smoker Alcohol Use: None Drug Use: None (LO VELA APRN) General Adult EDM: Chief Complaint: ANKLE PROBLEM HPI: HPI: Patient is a 74 year old female who presents to the ED today complaining of 8 out of 10 right ankle pain, symptoms began 3 days ago after she fell. She states she was evaluated in the ED and had negative bilateral ankle x-rays. She presents today stating she still has the pain and is taking Tylenol with no relief. She states she has a metal [place] in the ankle and would like to be evaluated again. Denies any new injuries. She is up in the room as we speak, she stood up and left (LO VELA APRN) Review of Systems: Review of Systems: Constitutional: Denies fever or chills. [] : Denies dysuria. [] Musculoskeletal: Reports right ankle pain. Denies back pain Integument: Denies rash. [] Neurologic: Denies headache, focal weakness or sensory changes. [] [] Psychiatric: Denies depression or anxiety. [] (LO VELA APRN) Heart Score: Risk Factors: Risk Factors: DM, Current or recent (<one month) smoker, HTN, HLP, family history of CAD, obesity. Risk Scores: Score 0 - 3: 2.5% MACE over next 6 weeks - Discharge Home Score 4 - 6: 20.3% MACE over next 6 weeks - Admit for Clinical Observation Score 7 - 10: 72.7% MACE over next 6 weeks - Early Invasive Strategies (LO VELA APRN) Allergies: Allergies: Allergies Coded Allergies Type Severity Reaction Last Updated Verified Iodinated Contrast Media Allergy Severe Anaphylaxis 05/27/18 Yes Penicillins Allergy Intermediate 05/27/18 Yes atenolol Allergy Intermediate TAKES METOPROLOL AT HOME 05/27/18 Yes erythromycin base Allergy Intermediate 05/27/18 Yes iodine Allergy Intermediate 05/27/18 Yes levofloxacin Allergy Intermediate 05/27/18 Yes pregabalin Allergy Intermediate 05/27/16 Yes (LO VELA APRN) Physical Exam: PE: Constitutional: Well developed, well nourished, no acute distress, non-toxic appearance. [] Skin: Warm, dry, no erythema, no rash. [] Back: No tenderness, no CVA tenderness. [] Extremities: Right ankle with no obvious deformity, full range of motion to the right ankle and foot. +2 right pedal pulse. Cap refill less than 2 seconds the right lower extremity. Neurologic: Alert and oriented X 3, normal motor function, normal sensory function, no focal deficits noted. [] Psychologic: Affect normal, judgement normal, mood normal. [] (LO VELA APRN) Current Patient Data: Vital Signs: Vital Signs Date Time Temp Pulse Resp B/P (MAP) Pulse Ox O2 Delivery O2 Flow Rate FiO2 08/28/20 18:46 98.2 73 20 185/110 (135) 98 Room Air 98.2 (LO VELA APRN) EKG: EKG: [] (LO VELA APRN) Radiology/Procedures: Radiology/Procedures: [] (LO VELA APRN) Course & Med Decision Making: Course & Med Decision Making Pertinent Labs and Imaging studies reviewed. (See chart for details) This is a 74-year-old female patient presenting to the ED today with right ankle pain after falling 3 days ago. Patient was seen in the ED when she fell. She had negative x-rays of her ankle. She presents today stating she still has pain. As i was talking to her, she stood up stating we are doing nothing for her and left. (LO VELA APRN) Dragon Disclaimer: Dragon Disclaimer: This electronic medical record was generated, in whole or in part, using a voice recognition dictation system. (LO VELA APRN) Departure Departure Impression: Primary Impression: Ankle pain, right Qualified Codes: M25.571 - Pain in right ankle and joints of right foot Additional Impression: Fall from standing Qualified Codes: W19.XXXD - Unspecified fall, subsequent encounter Disposition: 01 DC HOME SELF CARE/HOMELESS Condition: STABLE Referrals: DENICE BEJARANO MD (PCP) Attending Signature Attending Signature I have reviewed the PA/METAL MACHINIST's note and plan of care. I was available for consultation as needed during the patient's visit in the emergency department. I agree with the clinical impression, plan, and disposition. (DENICE SEGOVIA DO) LO VELA APRN Aug 28, 2020 19:07 DENICE SEGOVIA DO Aug 29, 2020 04:21
[2020-09-23] MEDS ORDERED: CARV12.511 PO (01:21)
[2020-09-23] MEDS ORDERED: LEVE100020 PO (01:21)
[2020-09-23] MEDS ORDERED: TRAZ-118 PO (01:21)
[2020-09-23] MEDS ORDERED: INSU100I17 SQ (01:21)
[2020-09-23] MEDS ORDERED: INSU100I13 SQ (01:21)
[2020-09-23] MEDS ORDERED: ALPR1TAB2 PO (09:00)
[2020-09-28] MEDS ORDERED: ERYT250T14 PO (10:36)
== END 2020-08-28 19:15 | disposition home or self-care (01) ==
LOC: ER 18:00
DX: G89.11 Acute pain due to trauma (principal); M25.571 Pain in right ankle and joints of right foot; E11.9 Type 2 diabetes mellitus without complications; I25.10 Atherosclerotic heart disease of native coronary artery without angina pectoris; Z98.890 Other specified postprocedural states; Z91.041 Radiographic dye allergy status; Z88.0 Allergy status to penicillin; Z88.1 Allergy status to other antibiotic agents; Z88.8 Allergy status to other drugs, medicaments and biological substances; Z88.6 Allergy status to analgesic agent; W18.39XA Other fall on same level, initial encounter; Y93.89 Activity, other specified; Y92.89 Other specified places as the place of occurrence of the external cause; Y99.8 Other external cause status
CPT/HCPCS: 99281

== ENCOUNTER 2020-10-21 07:49 | Emergency (ER) | payer MEDICARE, OTHER ==
[~2020-10-21] VITALS: Ht 147.3 cm; Wt 80.0 kg
[~2020-10-21 07:49] MED LIST changes: +ALPR1TAB2 PO; +CARV12.511 PO; +ERYT250T14 PO; +LEVE100020 PO; +TRAZ-118 PO
[2020-10-21 08:13] LABS: BASO # 0.1 x10^3/uL (0.0-0.2); BASO % 1 % (0-3); EOS % 0 % (0-3); HEMATOCRIT 37.3 % (36.0-47.0); HEMOGLOBIN 12.5 g/dL (12.0-15.5); LYMPH % 7 % (24-48); MEAN CORPUSCULAR HEMOGLOBIN 31 pg (25-35); MEAN CORPUSCULAR HGB CONC 34 g/dL (31-37); MEAN CORPUSCULAR VOLUME 93 fL (79-100); MONO # 0.7 x10^3/uL (0.0-1.1); MONO % 4 % (0-9); NEUT # 13.4 x10^3/uL (1.8-7.7); NEUT % 88 % (31-73); PLATELET COUNT 378 x10^3/uL (140-400); RED CELL DISTRIBUTION WIDTH 14.3 % (11.5-14.5); WHITE BLOOD COUNT 15.2 x10^3/uL (4.0-11.0)
[2020-10-21 08:31] LABS: CALCIUM 9.4 mg/dL (8.5-10.1); CREATININE 0.9 mg/dL (0.6-1.0); GFR 61.2; POTASSIUM 3.8 mmol/L (3.5-5.1)
[2020-10-21 08:37] LABS: BILIRUBIN,URINE NEGATIVE (NEG); CLARITY,URINE CLEAR; COLOR,URINE YELLOW; NITRITE,URINE NEGATIVE (NEG); PH,URINE 6.5 (<5.0-8.0); PROTEIN,URINE NEGATIVE (NEG-TRACE); UROBILINOGEN,URINE 0.2 mg/dL (0.2 mg/dL)
--- NOTE | 2020-10-21 08:37 | RAD ---
EXAM: Chest, single view. HISTORY: Chest pain. COMPARISON: 09/22/2020 FINDINGS: A frontal view of the chest is obtained. There is diffuse increased interstitial opacity. T here is no consolidation, pleural effusion or pneumothorax. There is a stable cardiac silhouette and evidence of prior CABG. There is a dorsal column stimulator lead overlying the mid thoracic spine. IMPRESSION: Diffuse increased interstitial opacity due to interstitial infiltrate or chronic intersti tial changes. There is no consolidated pneumonia. Electronically signed by: Shaina Saravia MD (10/21/2020 8:35 AM) [id number]
[2020-10-21 08:40] LABS: ALBUMIN 3.9 g/dL (3.4-5.0); ALBUMIN/GLOBULIN RATIO 1.1 (1.0-1.7); TOTAL BILIRUBIN 0.5 mg/dL (0.2-1.0); TOTAL PROTEIN 7.5 g/dL (6.4-8.2)
[2020-10-21 08:43] LABS: BARBITURATES NEG (NEG); BENZODIAZEPINES POS (NEG); CANNABINOIDS NEG (NEG); COCAINE NEG (NEG); METHADONE NEG (NEG); OPIATES NEG (NEG); PHENCYCLIDINE NEG (NEG)
[2020-10-21 08:45] LABS: AMPHETAMINE/METHAMPHETAMINE NEG (NEG)
[2020-10-21 08:55] LABS: BACTERIA,URINE 0 /HPF (0-FEW); RBC,URINE 0 /HPF (0-2); WBC,URINE 0 /HPF (0-4)
[2020-10-21 09:09] LABS: % BANDS 8 % (0-9); % LYMPHS 11 % (24-48); % MONOS 2 % (0-10); % SEGS 79 % (35-66); PLT ESTIMATE ADEQUATE (ADEQUATE)
--- NOTE | 2020-10-21 09:11 | ED.ADGEN ---
Past Medical History Past Medical History: CAD, Diabetes-Type II, Renal Disease, Seizure, Other Additional Past Medical Histor: Gastroparesis, CHRONIC PAIN, COMPRESSION FX Past Surgical History: Other Additional Past Surgical Histo: BACK SURGERY, "[place] IN RIGHT KNEE" Smoking Status: Never Smoker Alcohol Use: None Drug Use: None General Adult EDM: Chief Complaint: MULTIPLE COMPLAINTS HPI: HPI: Patient is a 74-year-old female well-known to this emergency room who presents to the emergency room with altered mental status. Per EMS they were called today due to concern for possible issues with blood sugar. Upon their arrival patient was complaining of chest pain which has been chronic in nature for her. She was recently admitted for chest pain as well according to her and had a work-up at that time that was normal. She states that she then went to rehab and recently got out of rehab. EMS noticed that she had slurred speech which is abnormal for her. The patient told them that this is been ongoing since 4:00 yesterday. They did not notice any other kind of neurologic deficits. Patient is confused and does not answer very many questions. She is complaining of allover chest pain and aching all over her body. She does state that she thinks she took a trazodone and may be some other medicine at some point within the last 12 hours. Review of Systems: Review of Systems: Complete ROS is negative unless otherwise documented in HPI Allergies: Allergies: Allergies Coded Allergies Type Severity Reaction Last Updated Verified Iodinated Contrast Media Allergy Severe Anaphylaxis 05/27/18 Yes Penicillins Allergy Intermediate 05/27/18 Yes atenolol Allergy Intermediate TAKES METOPROLOL AT HOME 05/27/18 Yes erythromycin base Allergy Intermediate 05/27/18 Yes iodine Allergy Intermediate 05/27/18 Yes levofloxacin Allergy Intermediate 05/27/18 Yes pregabalin Allergy Intermediate 05/27/16 Yes Physical Exam: PE: General: Awake, lethargic, slurred speech HEENT: Atraumatic, EOMI, PERRL, airway patent, moist oral mucosa Neck: Supple, trachea midline Respiratory: CTA bilaterally, normal effort, no wheezing/crackles CV: RRR, no murmur, cap refill <2 GI: Soft, nondistended, nontender, no masses MSK: No obvious deformities Skin: Warm, dry, intact Neuro: A&O x3, speech slurred, sensory and motor grossly intact, no focal deficits Psych: Slow to respond, not suicidal or homicidal Current Patient Data: Labs: Laboratory Tests Test 10/21/20 08:00 10/21/20 08:20 White Blood Count 15.2 x10^3/uL (4.0-11.0) H Red Blood Count 4.00 x10^6/uL (3.50-5.40) Hemoglobin 12.5 g/dL (12.0-15.5) Hematocrit 37.3 % (36.0-47.0) Mean Corpuscular Volume 93 fL (79-100) Mean Corpuscular Hemoglobin 31 pg (25-35) Mean Corpuscular Hemoglobin Concent 34 g/dL (31-37) Red Cell Distribution Width 14.3 % (11.5-14.5) Platelet Count 378 x10^3/uL (140-400) Neutrophils (%) (Auto) 88 % (31-73) H Lymphocytes (%) (Auto) 7 % (24-48) L Monocytes (%) (Auto) 4 % (0-9) Eosinophils (%) (Auto) 0 % (0-3) Basophils (%) (Auto) 1 % (0-3) Neutrophils # (Auto) 13.4 x10^3/uL (1.8-7.7) H Lymphocytes # (Auto) 1.0 x10^3/uL (1.0-4.8) Monocytes # (Auto) 0.7 x10^3/uL (0.0-1.1) Eosinophils # (Auto) 0.0 x10^3/uL (0.0-0.7) Basophils # (Auto) 0.1 x10^3/uL (0.0-0.2) Segmented Neutrophils % 79 % (35-66) H Band Neutrophils % 8 % (0-9) Lymphocytes % 11 % (24-48) L Monocytes % 2 % (0-10) Platelet Estimate Adequate (ADEQUATE) Sodium Level 139 mmol/L (136-145) Potassium Level 3.8 mmol/L (3.5-5.1) Chloride Level 100 mmol/L (98-107) Carbon Dioxide Level 25 mmol/L (21-32) Anion Gap 14 (6-14) Blood Urea Nitrogen 14 mg/dL (7-20) Creatinine 0.9 mg/dL (0.6-1.0) Estimated GFR (Cockcroft-Gault) 61.2 BUN/Creatinine Ratio 16 (6-20) Glucose Level 352 mg/dL (70-99) H Calcium Level 9.4 mg/dL (8.5-10.1) Total Bilirubin 0.5 mg/dL (0.2-1.0) Aspartate Amino Transferase (AST) 16 U/L (15-37) Alanine Aminotransferase (ALT) 29 U/L (14-59) Alkaline Phosphatase 108 U/L (46-116) Troponin I Quantitative < 0.017 ng/mL (0.000-0.055) Total Protein 7.5 g/dL (6.4-8.2) Albumin 3.9 g/dL (3.4-5.0) Albumin/Globulin Ratio 1.1 (1.0-1.7) Ethyl Alcohol Level < 10 mg/dL (0-10) Urine Collection Type U cath Urine Color Yellow Urine Clarity Clear Urine pH 6.5 (<5.0-8.0) Urine Specific [place] 1.020 (1.000-1.030) Urine Protein Negative mg/dL (NEG-TRACE) Urine Glucose (UA) >=1000 mg/dL (NEG) Urine Ketones (Stick) Negative mg/dL (NEG) Urine Blood Negative (NEG) Urine Nitrite Negative (NEG) Urine Bilirubin Negative (NEG) Urine Urobilinogen Dipstick 0.2 mg/dL (0.2 mg/dL) Urine Leukocyte Esterase Negative (NEG) Urine RBC 0 /HPF (0-2) Urine WBC 0 /HPF (0-4) Urine Bacteria 0 /HPF (0-FEW) Urine Opiates Screen Neg (NEG) Urine Methadone Screen Neg (NEG) Urine Barbiturates Neg (NEG) Urine Phencyclidine Screen Neg (NEG) Urine Amphetamine/Methamphetamine Neg (NEG) Urine Benzodiazepines Screen Pos (NEG) Urine Cocaine Screen Neg (NEG) Urine Cannabinoids Screen Neg (NEG) Urine Ethyl Alcohol Neg (NEG) Laboratory Tests 10/21/20 08:00 Laboratory Tests 10/21/20 08:00 Vital Signs: Vital Signs Date Time Temp Pulse Resp B/P (MAP) Pulse Ox O2 Delivery O2 Flow Rate FiO2 10/21/20 08:05 98.9 80 16 152/75 (100) 98 Room Air 98.9 EKG: EKG: [] Heart Score: C/O Chest Pain: N/A Risk Factors: Risk Factors: DM, Current or recent (<one month) smoker, HTN, HLP, family history of CAD, obesity. Risk Scores: Score 0 - 3: 2.5% MACE over next 6 weeks - Discharge Home Score 4 - 6: 20.3% MACE over next 6 weeks - Admit for Clinical Observation Score 7 - 10: 72.7% MACE over next 6 weeks - Early Invasive Strategies Radiology/Procedures: Radiology/Procedures: [] Course & Med Decision Making: Course & Med Decision Making Pertinent Labs and Imaging studies reviewed. (See chart for details) Patient is 74-year-old female who presents to the emergency room with altered mental status. Patient is complaining of chest pain and has a history of chronic chest pain. Evaluation was ordered for altered mental status. Patient does have significant slurred speech. Is a concern that she may have taken some kind of medication and is at this time intoxicated. She otherwise has a normal neurologic exam. CT head is negative. Lab work is unremarkable other than a mild white blood cell count of 15. Patient slowly improved while in the emergency room. Her drug screen is positive for benzodiazepines though she denies taking these. Patient is able to ambulate to the bathroom with assistance. Her sister is willing to take responsibility for her and bring her back if she does not improve. Patient's test results and vitals while in the ED were fully reviewed and discussed with the patient. Patient is stable and at this time does not need admission to the hospital. We have discussed strict return precautions and the importance of following up with their Primary Care Physician. Patient stated understanding and was given an opportunity to ask any questions. Patient is in agreement with plan. Yordanon Disclaimer: Dragclarissa Disclaimer: This electronic medical record was generated, in whole or in part, using a voice recognition dictation system. Departure Departure Impression: Primary Impression: Altered mental status Disposition: 01 DC HOME SELF CARE/HOMELESS Condition: IMPROVED Referrals: Dio WILKINS MD (PCP) Patient Instructions: Altered Mental Status KIRK HAWLEY MD Oct 21, 2020 09:11
--- NOTE | 2020-10-21 10:55 | RAD ---
EXAM: Head CT without contrast. HISTORY: Slurred speech. Lethargy. TECHNIQUE: Computed tomographic images of the head were obtained without contrast. *One or more of the following individualized dose reduction techniques were utilized for this examina tion: 1. Automated exposure control. 2. Adjustment of the mA and/or kV according to patient size. 3. Use of iterative reconstruction technique. COMPARISON: 08/24/2020. FINDINGS: There is no acute or subacute extra-axial or intraparenchymal hemorrhage. There is no mass effect or midline shift. There is no hydrocephalus. There are extensive areas of decreased attenuation within the cerebral white matter, nonspecific and likely related to chronic small vessel disease. There is a suspected small chronic lacunar infarct wi thin the junction of the left basal ganglia and thalamus. There is cerebral volume loss. There is evidence of lens surgery. There is mild ethmoid sinus mucosal thickening. The mastoid air ce lls are clear. There is no suspicious calvarial lesion. IMPRESSION: 1. No acute intracranial finding. Note is made that MRI is more sensitive for acute infarction. 2. Extensive bilateral cerebral white changes, most commonly due to chronic small vessel disease in p atients of this age. 3. Possible small chronic lacunar infarct within the junction of the left basal ganglia and thalamus. 4. Cerebral volume loss. Electronically signed by: Shaina Saravia MD (10/21/2020 10:53 AM) [id number]
[2020-10-21 11:20] VITALS: BP 156/72
--- NOTE | 2020-10-21 12:45 | EKG ---
[facility] [address] [place] [address] Test Date: 2020-10-21 Test Time: 07:54:58 Pat Name: ORLIN ROJAS Department: Room: Gender: F Superintendent Colliery: : 1945 Requested By: KIRK HAWLEY Order Number: [id number] Reading MD: Measurements Intervals [place] Rate: 96 P: -30 MA: 152 QRS: -31 QRSD: 96 T: 128 QT: 306 QTc: 387 Interpretive Statements SINUS RHYTHM ABNORMAL LEFT AXIS DEVIATION LEFT ANTERIOR FASCICULAR BLOCK QRS(T) CONTOUR ABNORMALITY CONSISTENT WITH ANTEROSEPTAL INFARCT AGE UNDETERMINED T ABNORMALITY IN HIGH LATERAL LEADS ABNORMAL ECG RI6.01 No previous ECG available for comparison
== END 2020-10-21 11:53 | disposition home or self-care (01) ==
LOC: ER 07:49
DX: R41.82 Altered mental status, unspecified (principal); R07.89 Other chest pain; G89.29 Other chronic pain; E11.22 Type 2 diabetes mellitus with diabetic chronic kidney disease; N18.9 Chronic kidney disease, unspecified; I25.10 Atherosclerotic heart disease of native coronary artery without angina pectoris; Z91.041 Radiographic dye allergy status; Z88.0 Allergy status to penicillin; Z88.1 Allergy status to other antibiotic agents; Z88.8 Allergy status to other drugs, medicaments and biological substances
CPT/HCPCS: 36415; 70450; 71045; 80053; 80307; 81001; 84484; 85007; 85025; 93005; 99285; G0480; P9612